=== PATIENT | male | born 1945 | race Caucasian/White ===

== ENCOUNTER 2023-08-04 10:50 | Outpatient (OUT) | payer MEDICARE, SELFPAY ==
[2023-08-04 11:24] LABS: Basophils Absolute Auto 0.1 10^3/uL (0.0-0.1); Basophils Percent Auto 0.8 % (0.2-2.0); Eosinophils Absolute Auto 0.4 10^3/uL (0.0-0.7); Eosinophils Percent Auto 5.1 % (0.9-7.0); Hemoglobin 8.7 g/dL (14.0-18.0); Immature Granulocytes Abs Auto 0.03 10^3/uL (0.00-0.03); Immature Granulocytes Pct Auto 0.3 % (0.0-0.5); Lymphocytes Absolute Auto 1.6 10^3/uL (1.2-3.8); Lymphocytes Percent Auto 17.8 % (20.5-60.0); Mean Corpuscular HGB Conc 26.4 g/dL (29.9-35.2); Mean Corpuscular Hemoglobin 18.2 pg (25.9-34.0); Mean Corpuscular Volume 68.9 fL (80.0-94.0); Mean Platelet Volume 9.5 fL (9.5-13.5); Monocytes Absolute Auto 0.9 10^3/uL (0.3-0.8); Monocytes Percent Auto 10.2 % (1.7-12.0); Neutrophils Absolute Auto 5.7 10^3/uL (1.4-6.5); Neutrophils Percent Auto 65.8 % (43.0-75.0); Platelet Count 362 10^3/uL (150-450); Red Blood Count 4.79 10^6/uL (4.70-6.10); Red Cell Distribution Width 18.7 % (11.0-15.0); White Blood Count 8.7 10^3/uL (4.0-11.0)
[2023-08-04 11:55] LABS: Estimated Average Glucose 131 mg/dL; Glycohemoglobin A1C 6.2 % (4.5-6.2)
[2023-08-04 12:09] LABS: Alanine Aminotransferase 17 U/L (16-63); Albumin Level 3.7 g/dL (3.4-5.0); Alkaline Phosphatase 66 U/L (46-116); Anion Gap 12.3; Aspartate Amino Transferase 19 U/L (15-37); BUN Creatinine Ratio 13.1; Bilirubin Total 0.4 mg/dL (0.2-1.0); Calcium 8.9 mg/dL (8.5-10.1); Carbon Dioxide 29.4 mmol/L (21.0-32.0); Chloride 105 mmol/L (98-107); Chol HDL Ratio 2.7; Cholesterol 128 mg/dL (<=200); Estimated GFR (African America >60 (>=60); Estimated GFR (Non-African Ame >60 (>=60); Free T3 2.88 pg/mL (2.18-3.98); Globulin 3.7 g/dL; Glucose 122 mg/dL (74-106); HDL Cholesterol 47 mg/dL (40-60); LDL Cholesterol Calculated 60.6 mg/dL; Potassium 3.7 mmol/L (3.5-5.1); Sodium 143 mmol/L (136-145); Thyroid Stimulating Hormone 2.108 uIU/mL (0.358-3.740); Total Protein 7.4 g/dL (6.4-8.2); Triglycerides 102 mg/dL (<=150); VLDL CHOLESTEROL 20.4 mg/dL
[2023-08-04 12:15] LABS: Prostate Specific Antigen Scrn 2.38 ng/mL (<=4.00)
== END 2023-08-04 10:51 | disposition home or self-care (01) ==
LOC: LAB 10:56
PROVIDERS: PCP Family Medicine; Visit Provider Family Medicine
DX: R60.0 Localized edema (principal); E11.9 Type 2 diabetes mellitus without complications; I10 Essential (primary) hypertension; E78.5 Hyperlipidemia, unspecified; R73.09 Other abnormal glucose; Z12.5 Encounter for screening for malignant neoplasm of prostate
CPT/HCPCS: 36415; 80053; 80061; 83036; 83880; 84436; 84443; 84481; 85025; G0103

== ENCOUNTER 2023-08-07 10:24 | Outpatient (OUT) | payer MEDICARE, SELFPAY ==
--- OUTSIDE RECORDS SUMMARY | 2023-08-07 10:28 | XMS_ITS | CCD ---
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 Name Role Phone PHYSICIAN, DEFAULT Unavailable Unavailable PHYSICIAN, DEFAULT Unavailable Unavailable Adonay Zhang Primary Care Physician [phone] HOY ., DR URIAS Admitting Unavailable HOY ., DR URIAS Attending Unavailable HOY ., DR URIAS Consulting Unavailable HOY ., DR URIAS Primary Care Unavailable HOY ., DR URIAS Primary Care Unavailable HOY ., DR URIAS Admitting Unavailable HOY ., DR URIAS Attending Unavailable HOY ., DR URIAS Consulting Unavailable HOY ., DR URIAS Primary Care Unavailable HOY ., DR URIAS Admitting Unavailable HOY ., DR URIAS Attending Unavailable HOY ., DR URIAS Consulting Unavailable HOY ., DR URIAS Admitting Unavailable HOY ., DR URIAS Primary Care Unavailable HOY ., DR URIAS Attending Unavailable HOY ., DR URIAS Consulting Unavailable GRECHNY ., JOSE SIVLA Consulting UnavailDEVIN Shook Consulting Unavailable NILL ., DR HIDALGO Admitting Unavailable HOY ., DR URIAS Primary Care Unavailable NILL ., DR HIDALGO Attending Unavailable NILL ., DR HIDALGO Consulting Unavailable AGUBOSIM, SHEA Consulting Unavailable DANIEL FRANCIS Consulting Unavailable HOY ., DR URIAS Admitting Unavailable HOY ., DR URIAS Attending Unavailable HOY ., DR URIAS Consulting Unavailable HOY ., DR URIAS Primary Care Unavailable Allergies Allergy Classification Reported Allergen(s) Allergy Type Date of Onset Reaction(s) Facility (1 source) Sulfonamides (Antibiotic); Translations: [sulfa drugs] Drug allergy Unknown (qualifier value) [facility] Work Phone: Medications Current Medications Medication Drug Class(es) Dates Sig (Normalized) Sig (Original) aspirin 81 mg oral tablet (1 source) Platelet Aggregation Inhibitor, Nonsteroidal Anti-inflammatory Drug Start: 10-21-2021 take 1 tablet by mouth once daily aspirin 81 mg Oral EC Tab 81 mg = 1 tab(s), Oral, Daily, Refills(s) 0 Start Date: 10/21/21 Status: Ordered benazepril hydrochloride 40 mg oral tablet (1 source) Angiotensin Converting Enzyme Inhibitor Start: 10-21-2021 take 1 tablet by mouth once daily benazepril 40 mg oral tablet 40 mg = 1 tab(s), Oral, Daily, Refills(s) 0 Start Date: 10/21/21 Status: Ordered Diclofenac 75mg Tab-DR (1 source) Start: 10-21-2021 take 1 tablet by mouth twice daily Diclofenac 75mg Tab-DR = 1 tab(s), Oral, BID, Refills(s) 0 Start Date: 10/21/21 Status: Ordered doxazosin 4 mg oral tablet (1 source) alpha-Adrenergic Citlalli Start: 10-21-2021 take 1 tablet by mouth once daily Cardura 4 mg Tab 4 mg = 1 tab(s), Oral, Daily, Refills(s) 0 Start Date: 10/21/21 Status: Ordered furosemide 40 mg oral tablet (1 source) Loop Diuretic Start: 10-21-2021 take 1 tablet by mouth once daily Lasix 40 mg Tab 40 mg = 1 tab(s), Oral, Daily, Refills(s) 0 Start Date: 10/21/21 Status: Ordered glimepiride 4 mg oral tablet (1 source) Sulfonylurea Start: 10-21-2021 take 1 tablet by mouth once daily glimepiride 4 mg Tab 4 mg = 1 tab(s), Oral, Daily, Refills(s) 0 Start Date: 10/21/21 Status: Ordered hyoscyamine sulfate 0.125 mg oral tablet (1 source) Start: 10-21-2021 take 1 tablet by mouth four times daily Levsin 0.125 mg oral tablet 0.125 mg = 1 tab(s), Oral, QID, Refills(s) 0 Start Date: 10/21/21 Status: Ordered linaclotide 0.145 mg oral capsule (1 source) Guanylate Cyclase-C Agonist Start: 10-21-2021 take 1 capsule by mouth once daily Linzess 145 mcg oral capsule 145 mcg = 1 cap(s), Oral, Daily, Refills(s) 0 Start Date: 10/21/21 Status: Ordered metFORMIN hydrochloride 500 mg oral tablet (1 source) Biguanide Start: 10-21-2021 take 1 tablet by mouth twice daily metformin 500 mg oral tablet 500 mg = 1 tab(s), Oral, BID, Refills(s) 0 Start Date: 10/21/21 Status: Ordered metoprolol tartrate 100 mg oral tablet (1 source) beta-Adrenergic Citlalli Start: 10-21-2021 take 1 tablet by mouth twice daily metoprolol tartrate 100 mg Tab 100 mg = 1 tab(s), Oral, BID, Refills(s) 0 Start Date: 10/21/21 Status: Ordered pantoprazole 40 mg extended release oral tablet (1 source) Proton Pump Inhibitor Start: 10-21-2021 take 1 tablet by mouth once daily Pantoprazole [address] Tab 40 mg = 1 tab(s), Oral, Daily, Refills(s) 0 Start Date: 10/21/21 Status: Ordered simvastatin 20 mg oral tablet (1 source) HMG-CoA Reductase Inhibitor Start: 10-21-2021 take 1 tablet by mouth once daily at bedtime simvastatin 20 mg Tab 20 mg = 1 tab(s), Oral, Once a day (at bedtime), Refills(s) 0 Start Date: 10/21/21 Status: Ordered sucralfate 1000 mg oral tablet (1 source) Aluminum Complex Start: 10-21-2021 sucralfate 1 g Tab 1 gm = 1 tab(s), Oral, QIDACHS, Refills(s) 0 Start Date: 10/21/21 Status: Ordered Completed/Discontinued Medications Medication Drug Class(es) Dates Sig (Normalized) Sig (Original) potassium chloride 20 meq extended release oral tablet (1 source) Start: 10-21-2021 take 1 tablet by mouth twice daily potassium chloride 20 mEq ER Tab 20 mEq = 1 tab(s), Oral, BID, Refills(s) 0 Start Date: 10/21/21 Status: Ordered Problems Active Problems Problem Classification Problem Date Documented Date Episodic/Chronic Alcohol-related disorders (1 source) History of alcohol abuse 10-21-2021 Chronic Allergic reactions (1 source) Eczema 10-21-2021 Episodic Anxiety disorders (2 sources) Anxiety; Translations: [Anxiety disorder, unspecified] Onset: 12-15-2021 10-21-2021 Chronic Asthma (2 sources) Asthma; Translations: [Unspecified asthma, uncomplicated] Onset: 11-23-2021 10-21-2021 Chronic Blindness and vision defects (1 source) Hypermetropia 10-21-2021 Episodic Deficiency and other anemia (2 sources) Anemia; Translations: [Anemia, unspecified] Onset: 10-27-2021 Episodic Diabetes mellitus without complication (2 sources) Diabetes mellitus; Translations: [Type 2 diabetes mellitus without complications] Onset: 12-15-2021 10-21-2021 Chronic Disorders of lipid metabolism (5 sources) Hypercholesterolemia; Translations: [Hyperlipidemia] Onset: 12-15-2021 10-21-2021 Chronic Esophageal disorders (3 sources) Gastroesophageal reflux disease without esophagitis; Translations: [Gastro-esophageal reflux disease without esophagitis] Onset: 10-27-2021 Chronic Essential hypertension (2 sources) Hypertensive disorder; Translations: [Essential (primary) hypertension] Onset: 10-20-2022 10-21-2021 Chronic Gastroduodenal ulcer (except hemorrhage) (1 source) Gastric ulcer, unspecified as acute or chronic, without hemorrhage or perforation; Translations: [GASTR ULCR UNS AC/CHRN W/O HEM/PERF] Onset: 11-23-2021 Chronic Hyperplasia of prostate (2 sources) Benign prostatic hyperplasia; Translations: [Benign prostatic hyperplasia without lower urinary tract symptoms] Onset: 12-15-2021 10-21-2021 Chronic Inflammatory conditions of male genital organs (2 sources) Chronic prostatitis; Translations: [Chronic prostatitis] Onset: 12-15-2021 10-21-2021 Chronic Malaise and fatigue (1 source) Other fatigue; Translations: [OTHER FATIGUE] Onset: 10-20-2022 Episodic Osteoarthritis (1 source) Unspecified osteoarthritis, unspecified site; Translations: [UNSPECIFIED OSTEOARTHRITIS UNS SITE] Onset: 12-15-2021 Chronic Other aftercare (1 source) Other superintendent container terminal (current) drug therapy; Translations: [OTH CUSTODIAL CURRENT DRUG THERAPY] Onset: 10-20-2022 Episodic Other connective tissue disease (1 source) Fibromyalgia 10-21-2021 Episodic Other male genital disorders (1 source) Impotence 10-21-2021 Chronic Other male genital disorders (1 source) Male erectile dysfunction, unspecified; Translations: [MALE ERECTILE DYSFUNCTION UNS] Onset: 12-15-2021 Chronic Other nutritional; endocrine; and metabolic disorders (1 source) Body mass index 30+ - obesity 10-27-2021 Chronic Other nutritional; endocrine; and metabolic disorders (1 source) Morbid (severe) obesity due to excess calories; Translations: [MORBID SEVERE OBES D/T EXCESS RICKIE] Onset: 12-15-2021 Chronic Other nutritional; endocrine; and metabolic disorders (1 source) Body mass index (BMI) 32.0-32.9, adult; Translations: [BODY MASS INDEX BMI 32.0-32.9 ADULT] Onset: 12-15-2021 Chronic Other screening for suspected conditions (not mental disorders or infectious disease) (1 source) Encounter for screening for malignant neoplasm of prostate; Translations: [ENC SCREEN MALIG NEOPLASM PROSTATE] Onset: 10-20-2022 Episodic Other upper respiratory disease (1 source) Allergic rhinitis 10-21-2021 Chronic Other upper respiratory infections (4 sources) Acute sinusitis, unspecified; Translations: [ACUTE SINUSITIS UNSPECIFIED] Onset: 10-14-2022 Episodic Peripheral and visceral atherosclerosis (4 sources) Peripheral vascular disease, unspecified; Translations: [PERIPHERAL VASCULAR DISEASE UNS] Onset: 09-01-2022 Chronic Residual codes; unclassified (1 source) Obstructive sleep apnea syndrome 10-21-2021 Chronic Residual codes; unclassified (1 source) Sleep apnea 10-21-2021 Chronic Residual codes; unclassified (1 source) Sleep apnea, unspecified; Translations: [SLEEP APNEA UNSPECIFIED] Onset: 12-15-2021 Chronic Residual codes; unclassified (1 source) Obstructive sleep apnea (adult) (pediatric); Translations: [OBSTRUCTIVE SLEEP APNEA] Onset: 11-23-2021 Chronic Residual codes; unclassified (1 source) Dependent edema 10-21-2021 Episodic Spondylosis; intervertebral disc disorders; other back problems (1 source) Cervicalgia; Translations: [CERVICALGIA] Onset: 10-20-2022 Episodic Unclassified (3 sources) COUGH, UNSPECIFIED; Translations: [COUGH, UNSPECIFIED] Onset: 02-22-2022 Unclassified (1 source) CONTACT W/AND (SUSP) EXPOS COVID-19; Translations: [CONTACT W/AND (SUSP) EXPOS COVID-19] Onset: 12-15-2021 Viral infection (1 source) COVID-19; Translations: [COVID-19] Onset: 02-22-2022 Past or Other Problems Problem Classification Problem Date Documented Da te Episodic/Chronic Abdominal pain (6 sources) Epigastric pain; Translations: [Epigastric pain] Onset: 10-27-2021 Episodic Acute and unspecified renal failure (1 source) Acute kidney failure, unspecified; Translations: [ACUTE KIDNEY FAILURE UNSPECIFIED] Onset: 12-15-2021 Episodic Bacterial infection; unspecified site (1 source) Personal history of Methicillin resistant Staphylococcus aureus infection; Translations: [PERS HX METHICILLIN RSIST STAPH INF] Onset: 12-15-2021 Episodic Calculus of urinary tract (2 sources) History of calculus of kidney; Translations: [Personal history of urinary calculi] Onset: 12-15-2021 10-21-2021 Episodic Deficiency and other anemia (1 source) Anemia, unspecified; Translations: [ANEMIA UNSPECIFIED] Onset: 11-23-2021 Episodic Fluid and electrolyte disorders (2 sources) Dehydration; Translations: [Hyperkalemia] Onset: 12-15-2021 Episodic Gastritis and duodenitis (1 source) Gastritis, unspecified, without bleeding; Translations: [GASTRITIS UNS WITHOUT BLEEDING] Onset: 11-23-2021 Episodic Intestinal infection (5 sources) Viral intestinal infection, unspecified; Translations: [Other viral enteritis] Onset: 12-14-2021 Episodic Other aftercare (1 source) buttermaker continuous churn (current) use of aspirin; Translations: [CUSTODIAL CURRENT USE OF ASPIRIN] Onset: 12-15-2021 Episodic Other aftercare (1 source) buttermaker continuous churn (current) use of oral hypoglycemic drugs; Translations: [GANG KNIFE FISH CHOPPER USE ORAL HYPOGLYCEMIC DX] Onset: 12-15-2021 Episodic Other connective tissue disease (1 source) Fibromyalgia; Translations: [FIBROMYALGIA] Onset: 12-15-2021 Episodic Other gastrointestinal disorders (3 sources) Diarrhea, unspecified; Translations: [DIARRHEA UNSPECIFIED] Onset: 12-10-2021 Episodic Other lower respiratory disease (1 source) Personal history of pneumonia (recurrent); Translations: [PERSONAL HX OF PNEUMONIA RECURRENT] Onset: 12-15-2021 Episodic Residual codes; unclassified (1 source) Acquired absence of other specified parts of digestive tract; Translations: [ACQ ABSENCE OTH PART DIGESTV TRACT] Onset: 12-15-2021 Episodic Screening and history of mental health and substance abuse codes (1 source) Personal history of nicotine dependence; Translations: [PERSONAL HISTORY OF NICOTINE DEPEND] Onset: 12-15-2021 Episodic Unclassified (1 source) COUGH, UNSPECIFIED; Translations: [COUGH, UNSPECIFIED] Onset: 02-21-2022 Results Test Name Value Interpretation Reference Range Facility CBC AUTO DIFFon 10-14-2022 BASO # 0.1 103/ul Normal 0.0-0.1 [facility] Comment on above: Performed By: #### T SH, LIVER, LIPID, BMP, T7 #### [facility] [address] [place] [address] Dr. Roberto Cabral Basophils/100 WBC (Bld) 0.7 % Normal 0.2-2.0 [facility] Comment on above: Performed By: #### T SH, LIVER, LIPID, BMP, T7 #### [facility] [address] [place] [address] Dr. Roberto Cabral EO # 0.5 103/ul Normal 0.0-0.7 [facility] Comment on above: Performed By: #### T SH, LIVER, LIPID, BMP, T7 #### [facility] [address] [place] [address] Dr. Roberto Cabral Eosinophils/100 WBC (Bld) 5.3 % Normal 0.9-7.0 [facility] Comment on above: Performed By: #### T SH, LIVER, LIPID, BMP, T7 #### [facility] [address] [place] [address] Dr. Roberto Cabral Erythrocyte distribution width (RBC) [Ratio] 15.8 % Critically high 11.0-15.0 [facility] Comment on above: Performed By: #### T SH, LIVER, LIPID, BMP, T7 #### [facility] [address] [place] [address] Dr. Roberto Cabral Hematocrit (Bld) [Volume fraction] 34.4 % Critically low 42.0-54.0 [facility] Comment on above: Performed By: #### T SH, LIVER, LIPID, BMP, T7 #### [facility] [address] [place] [address] Dr. Roberto Cabral Hemoglobin (Bld) [Mass/Vol] 10.2 g/dL Critically low 14.0-18.0 [facility] Comment on above: Performed By: #### T SH, LIVER, LIPID, BMP, T7 #### [facility] [address] [place] [address] Dr. Roberto Cabral IG # 0.03 10e3/ul Normal 0.00-0.03 [facility] Comment on above: Performed By: #### T SH, LIVER, LIPID, BMP, T7 #### [facility] [address] [place] [address] Dr. Roberto Cabral IG % 0.3 % Normal 0.0-0.5 [facility] Comment on above: Performed By: #### T SH, LIVER, LIPID, BMP, T7 #### [facility] [address] [place] [address] Dr. Roberto Cabral LYMPH # 1.9 103/ul Normal 1.2-3.8 [facility] Comment on above: Performed By: #### T SH, LIVER, LIPID, BMP, T7 #### [facility] [address] [place] [address] Dr. Roberto Cabral Lymphocytes/100 WBC (Bld) 21.0 % Normal 20.5-60.0 [facility] Comment on above: Performed By: #### T SH, LIVER, LIPID, BMP, T7 #### [facility] [address] [place] [address] Dr. Roberto Cabral MANUAL DIFF REQ NO Normal [facility] Comment on above: Performed By: #### T SH, LIVER, LIPID, BMP, T7 #### [facility] [address] [place] [address] Dr. Roberto Cabral MCH (RBC) [Entitic mass] 22.7 pg Critically low 25.9-34.0 [facility] Comment on above: Performed By: #### T SH, LIVER, LIPID, BMP, T7 #### [facility] [address] [place] [address] Dr. Roberto Cabral MCHC (RBC) [Mass/Vol] 29.7 g/dL Critically low 29.9-35.2 [facility] Comment on above: Performed By: #### T SH, LIVER, LIPID, BMP, T7 #### [facility] [address] [place] [address] Dr. Roberto Cabral MCV (RBC) [Entitic vol] 76.6 fL Critically low 80.0-94.0 [facility] Comment on above: Performed By: #### T SH, LIVER, LIPID, BMP, T7 #### [facility] [address] [place] [address] Dr. Roberto Cabral MONO # 0.9 103/ul Critically high 0.3-0.8 [facility] Comment on above: Performed By: #### T SH, LIVER, LIPID, BMP, T7 #### [facility] [address] [place] [address] Dr. Roberto Cabral Monocytes/100 WBC (Bld) 10.0 % Normal 1.7-12.0 [facility] Comment on above: Performed By: #### T SH, LIVER, LIPID, BMP, T7 #### [facility] [address] [place] [address] Dr. Roberto Cabral NEUT # 5.7 103/ul Normal 1.4-6.5 [facility] Comment on above: Performed By: #### T SH, LIVER, LIPID, BMP, T7 #### [facility] [address] [place] [address] Dr. Roberto Cabral Neutrophils/100 WBC (Bld) 62.7 % Normal 43.0-75.0 [facility] Comment on above: Performed By: #### T SH, LIVER, LIPID, BMP, T7 #### [facility] [address] [place] [address] Dr. Roberto Cabral Platelet mean volume (Bld) [Entitic vol] 9.8 fL Normal 9.5-13.5 [facility] Comment on above: Performed By: #### T SH, LIVER, LIPID, BMP, T7 #### [facility] [address] [address] [address] Roberto Cabral PLT 290 103/ul Normal 150-450 [facility] Comment on above: Performed By: #### T SH, LIVER, LIPID, BMP, T7 #### [facility] [address] [address] [address] Roberto Cabral RBC 4.49 106/ul Critically low 4.70-6.10 [facility] Comment on above: Performed By: #### T SH, LIVER, LIPID, BMP, T7 #### [facility] [address] [place] [address] Dr. Roberto Cabral WBC 9.1 103/ul Normal 4.0-11.0 [facility] Comment on above: Performed By: #### T SH, LIVER, LIPID, BMP, T7 #### [facility] [address] [place] [address] Dr. Roberto Cabral FREE THYROXINE INDEX T7on FTI 2.73 Normal 1.30-4.50 [facility] Comment on above: Performed By: #### T SH, LIVER, LIPID, BMP, T7 #### [facility] [address] [place] [address] Dr. Roberto Cabral T3U 35.0 % Normal 33.0-40.0 [facility] Comment on above: Performed By: #### T SH, LIVER, LIPID, BMP, T7 #### [facility] [address] [place] [address] Dr. Roberto Cabral T4 [Mass/Vol] 7.80 ug/dL Normal 4.50-12.10 [facility] Comment on above: Performed By: #### T SH, LIVER, LIPID, BMP, T7 #### [facility] [address] [place] [address] Dr. Roberto Cabral GLYCOHEMOGLOBIN A1Con 2022 ADA RECOMMENDATION SEE BELOW Normal [facility] Comment on above: Result Comment: ADA RECOMMENDED LIMIT 4.0 - 6.0 ADA THERAPEUTIC TARGET < 7.0 ACTION SUGGESTED > 7.0 Performed By: #### A 1C #### [facility] [address] [place] [address] Dr. Roberto Cabral Glucose [Mass/Vol] 126 mg/dL Normal [facility] Comment on above: Performed By: #### A 1C #### [facility] [address] [place] [address] Dr. Roberto Cabral HbA1c (Bld) [Mass fraction] 6.0 % Normal 4.5-6.2 [facility] Comment on above: Performed By: #### A 1C #### [facility] [address] [place] [address] Dr. Roberto Cabral LIPID PROFILEon 10-14-2022 CHOL-HDL RATIO NORM SEE BELOW Normal [facility] Comment on above: Result Comment: 3.3 - 4.4 LOW RISK 4.4 - 7.1 AVERAGE RISK 7.1 - 11.0 MODERATE RISK >11.0 HIGH RISK Performed By: #### T SH, LIVER, LIPID, BMP, T7 #### [facility] [address] [place] [address] Dr. Roberto Cabral Cholesterol [Mass/Vol] 129 mg/dL Normal <=200 [facility] Comment on above: Performed By: #### T SH, LIVER, LIPID, BMP, T7 #### [facility] [address] [address] [address] Roberto Cabral Cholesterol in HDL [Mass/Vol] 45 mg/dL Normal 40-60 [facility] Comment on above: Performed By: #### T SH, LIVER, LIPID, BMP, T7 #### [facility] [address] [address] [address] Roberto Cabral Cholesterol in LDL [Mass/Vol] 62.4 mg/dL Normal [facility] Comment on above: Performed By: #### T SH, LIVER, LIPID, BMP, T7 #### [facility] [address] [address] [address] Roberto Cabral Cholesterol.total/ Cholesterol in HDL [Mass ratio] 2.9 {ratio} Normal [facility] Comment on above: Performed By: #### T SH, LIVER, LIPID, BMP, T7 #### [facility] [address] [place] [address] Dr. Roberto Cabral HDL NORMAL > or = 60 mg/dl - LO W CARDIOVASCULAR RISK <40 mg/dl - HIGH CARDIOVASCULAR RISK Normal [facility] Comment on above: Performed By: #### T SH, LIVER, LIPID, BMP, T7 #### [facility] [address] [address] [address] Roberto Cabral LDL CALC NORMAL SEE BELOW Normal [facility] Comment on above: Result Comment: <100 mg/dl OPTIMAL 100 - 129 mg/dl NEAR OR ABOVE OPTIMAL 130 - 159 mg/dl BORDERLINE HIGH 160 - 189 mg/dl HIGH >190 mg/dl VERY HIGH Performed By: #### T SH, LIVER, LIPID, BMP, T7 #### [facility] [address] [address] [address] Roberto Cabral Triglyceride [Mass/Vol] 108 mg/dL Normal <=150 [facility] Comment on above: Performed By: #### T SH, LIVER, LIPID, BMP, T7 #### [facility] [address] [place] [address] Dr. Roberto Cabral VLDL CALC 21.6 mg/dL Normal [facility] Comment on above: Performed By: #### T SH, LIVER, LIPID, BMP, T7 #### [facility] [address] [address] [address] Roberto Cabral LIVER PROFILEon 10-14-2022 Albumin [Mass/Vol] 3.6 g/dL Normal 3.4-5.0 [facility] Comment on above: Performed By: #### T SH, LIVER, LIPID, BMP, T7 #### [facility] [address] [address] [address] Roberto Cabral Albumin/Globulin [Mass ratio] 1.0 {ratio} Normal [facility] Comment on above: Performed By: #### T SH, LIVER, LIPID, BMP, T7 #### [facility] [address] [place] [address] Dr. Roberto Cabral ALP [Catalytic activity/Vol] 80 U/L Normal 46-116 [facility] Comment on above: Performed By: #### T SH, LIVER, LIPID, BMP, T7 #### [facility] [address] [place] [address] Dr. Roberto Cabral ALT [Catalytic activity/Vol] 21 U/L Normal 16-63 [facility] Comment on above: Performed By: #### T SH, LIVER, LIPID, BMP, T7 #### [facility] [address] [place] [address] Dr. Roberto Cabral AST [Catalytic activity/Vol] 14 U/L Critically low 15-37 [facility] Comment on above: Performed By: #### T SH, LIVER, LIPID, BMP, T7 #### [facility] [address] [place] [address] Dr. Roberto Cabral BILI, CONJUGATED 0.1 mg/dL Normal 0.0-0.2 [facility] Comment on above: Performed By: #### T SH, LIVER, LIPID, BMP, T7 #### [facility] [address] [place] [address] Dr. Roberto Cabral Bilirubin [Mass/Vol] 0.2 mg/dL Normal 0.2-1.0 [facility] Comment on above: Performed By: #### T SH, LIVER, LIPID, BMP, T7 #### [facility] [address] [place] [address] Dr. Roberto Cabral Globulin (S) [Mass/Vol] 3.6 g/dL Normal [facility] Comment on above: Performed By: #### T SH, LIVER, LIPID, BMP, T7 #### [facility] [address] [place] [address] Dr. Roberto Cabral Protein [Mass/Vol] 7.2 g/dL Normal 6.4-8.2 [facility] Comment on above: Performed By: #### T SH, LIVER, LIPID, BMP, T7 #### [facility] [address] [place] [address] Dr. Roberto Cabral PROF CHEM 8 (BAS METB)on Anion gap [Moles/Vol] 13.9 mmol/L Normal [facility] Comment on above: Performed By: #### T SH, LIVER, LIPID, BMP, T7 #### [facility] [address] [place] [address] Dr. Roberto Cabral Calcium [Mass/Vol] 9.2 mg/dL Normal 8.5-10.1 [facility] Comment on above: Performed By: #### T SH, LIVER, LIPID, BMP, T7 #### [facility] [address] [address] [address] Roberto Cabral Chloride [Moles/Vol] 110 mmol/L Critically high 98-107 [facility] Comment on above: Performed By: #### T SH, LIVER, LIPID, BMP, T7 #### [facility] [address] [address] [address] Roberto Cabral CO2 [Moles/Vol] 26.2 mmol/L Normal 21.0-32.0 [facility] Comment on above: Performed By: #### T SH, LIVER, LIPID, BMP, T7 #### [facility] [address] [place] [address] Dr. Roberto Cabral Creatinine [Mass/Vol] 1.02 mg/dL Normal 0.70-1.30 [facility] Comment on above: Performed By: #### T SH, LIVER, LIPID, BMP, T7 #### [facility] [address] [place] [address] Dr. Roberto Cabral EGFR-AF ALGERIAN >60 Normal >=60 [facility] Comment on above: Performed By: #### T SH, LIVER, LIPID, BMP, T7 #### [facility] [address] [place] [address] Dr. Roberto Cabral EGFR-NON AF ALGERIAN >60 Normal >=60 [facility] Comment on above: Performed By: #### T SH, LIVER, LIPID, BMP, T7 #### [facility] [address] [place] [address] Dr. Roberto Cabral Glucose [Mass/Vol] 120 mg/dL Critically high 74-106 [facility] Comment on above: Performed By: #### T SH, LIVER, LIPID, BMP, T7 #### [facility] [address] [place] [address] Dr. Roberto Cabral Potassium [Moles/Vol] 4.1 mmol/L Normal 3.5-5.1 [facility] Comment on above: Performed By: #### T SH, LIVER, LIPID, BMP, T7 #### [facility] [address] [address] [address] Roberto Cabral Sodium [Moles/Vol] 146 mmol/L Critically high 136-145 [facility] Comment on above: Performed By: #### T SH, LIVER, LIPID, BMP, T7 #### [facility] [address] [address] [address] Roberto Cabral Urea nitrogen [Mass/Vol] 26.0 mg/dL Critically high 7.0-18.0 [facility] Comment on above: Performed By: #### T SH, LIVER, LIPID, BMP, T7 #### [facility] [address] [place] [address] Dr. Roberto Cabral Urea nitrogen/Creatinin e [Mass ratio] 25.5 mg/mg Normal [facility] Comment on above: Performed By: #### T SH, LIVER, LIPID, BMP, T7 #### [facility] [address] [address] [address] Roberto Cabral TSHon 10-14-2022 TSH 1.674 uIU/mL Normal 0.358-3.740 [facility] Comment on above: Performed By: #### T SH, LIVER, LIPID, BMP, T7 #### [facility] [address] [place] [address] Dr. Roberto Cabral [facility]01 SARS-CoV-2 (COVID-19) RNA JOSÉ+probe Ql (Unsp spec) Detected Critically abnormal NOT DETECTED [facility] Comment on above: Result Comment: This test is not yet approved or cleared by the [place] FDA. When there are no FDA-approved or cleared tests available, and other criteria are met, FDA can make tests available under an emergency access mechanism called an Emergency Use Authorization (EUA). The EUA for this test is supported by the Lead Generator of Health and Human Service's (HHS's) declaration that circumstances exist to justify the emergency use of in vitro diagnostics for the detection and/or diagnosis of the virus that causes COVID-19. This EUA will remain in effect (meaning this test can be used) for the duration of the COVID-19 declaration justifying emergency of IVDs, unless it is terminated or revoked by FDA (after which the test may no longer be used). Performed By: #### T SH, LIVER, LIPID, BMP, T7 #### [facility] [address] [address] [address] Roberto Cabral Pre-Certification Formon Pre-Certification Form [id number] Normal [facility] PROF 14(COMP METB)on 022 Albumin [Mass/Vol] 3.3 g/dL Critically low 3.4-5.0 [facility] Comment on above: Performed By: #### T SH, LIVER, LIPID, BMP, T7 #### [facility] [address] [place] [address] Dr. Roberto Cabral Albumin/Globulin [Mass ratio] 1.0 {ratio} Normal [facility] Comment on above: Performed By: #### T SH, LIVER, LIPID, BMP, T7 #### [facility] [address] [address] [address] Roberto Cabral ALP [Catalytic activity/Vol] 95 U/L Normal 46-116 [facility] Comment on above: Performed By: #### T SH, LIVER, LIPID, BMP, T7 #### [facility] [address] [address] [address] Roberto Cabral ALT [Catalytic activity/Vol] 22 U/L Normal 16-63 [facility] Comment on above: Performed By: #### T SH, LIVER, LIPID, BMP, T7 #### [facility] [address] [address] [address] Roberto Cabral Anion gap [Moles/Vol] 14.0 mmol/L Normal [facility] Comment on above: Performed By: #### T SH, LIVER, LIPID, BMP, T7 #### [facility] [address] [address] [address] Roberto Cabral AST [Catalytic activity/Vol] 12 U/L Critically low 15-37 [facility] Comment on above: Performed By: #### T SH, LIVER, LIPID, BMP, T7 #### [facility] [address] [address] [address] Roberto Cabral Bilirubin [Mass/Vol] 0.2 mg/dL Normal 0.2-1.0 [facility] Comment on above: Performed By: #### T SH, LIVER, LIPID, BMP, T7 #### [facility] [address] [place] [address] Dr. Roberto Cabral Calcium [Mass/Vol] 8.6 mg/dL Normal 8.5-10.1 [facility] Comment on above: Performed By: #### T SH, LIVER, LIPID, BMP, T7 #### [facility] [address] [place] [address] Dr. Roberto Cabral Chloride [Moles/Vol] 110 mmol/L Critically high 98-107 [facility] Comment on above: Performed By: #### T SH, LIVER, LIPID, BMP, T7 #### [facility] [address] [place] [address] Dr. Roberto Cabral CO2 [Moles/Vol] 22.6 mmol/L Normal 21.0-32.0 [facility] Comment on above: Performed By: #### T SH, LIVER, LIPID, BMP, T7 #### [facility] [address] [place] [address] Dr. Roberto Cabral Creatinine [Mass/Vol] 1.05 mg/dL Normal 0.70-1.30 [facility] Comment on above: Performed By: #### T SH, LIVER, LIPID, BMP, T7 #### [facility] [address] [place] [address] Dr. Roberto Cabral EGFR-AF ALGERIAN >60 Normal >=60 [facility] Comment on above: Performed By: #### T SH, LIVER, LIPID, BMP, T7 #### [facility] [address] [place] [address] Dr. Roberto Cabral EGFR-NON AF ALGERIAN >60 Normal >=60 [facility] Comment on above: Performed By: #### T SH, LIVER, LIPID, BMP, T7 #### [facility] [address] [address] [address] Roberto Cabral Globulin (S) [Mass/Vol] 3.2 g/dL Normal [facility] Comment on above: Performed By: #### T SH, LIVER, LIPID, BMP, T7 #### [facility] [address] [place] [address] Dr. Roberto Cabral Glucose [Mass/Vol] 172 mg/dL Critically high 74-106 [facility] Comment on above: Performed By: #### T SH, LIVER, LIPID, BMP, T7 #### [facility] [address] [place] [address] Dr. Roberto Cabral Potassium [Moles/Vol] 4.6 mmol/L Normal 3.5-5.1 [facility] Comment on above: Performed By: #### T SH, LIVER, LIPID, BMP, T7 #### [facility] [address] [place] [address] Dr. Roberto Cabral Protein [Mass/Vol] 6.5 g/dL Normal 6.4-8.2 [facility] Comment on above: Performed By: #### T SH, LIVER, LIPID, BMP, T7 #### [facility] [address] [place] [address] Dr. Roberto Cabral Sodium [Moles/Vol] 142 mmol/L Normal 136-145 [facility] Comment on above: Performed By: #### T SH, LIVER, LIPID, BMP, T7 #### [facility] [address] [place] [address] Dr. Roberto Cabral Urea nitrogen [Mass/Vol] 14.0 mg/dL Normal 7.0-18.0 [facility] Comment on above: Performed By: #### T SH, LIVER, LIPID, BMP, T7 #### [facility] [address] [place] [address] Dr. Roberto Cabral Urea nitrogen/Creatinin e [Mass ratio] 13.3 mg/mg Normal [facility] Comment on above: Performed By: #### T SH, LIVER, LIPID, BMP, T7 #### [facility] [address] [place] [address] Dr. Roberto Cabral CBC AUTO DIFFon 12-11-2021 BASO # 0.1 103/ul Normal 0.0-0.1 [facility] Comment on above: Performed By: #### T SH, LIVER, LIPID, BMP, T7 #### [facility] [address] [place] [address] Dr. Roberto Cabral Basophils/100 WBC (Bld) 0.3 % Normal 0.2-2.0 [facility] Comment on above: Performed By: #### T SH, LIVER, LIPID, BMP, T7 #### [facility] [address] [place] [address] Dr. Roberto Cabral EO # 0.7 103/ul Normal 0.0-0.7 [facility] Comment on above: Performed By: #### T SH, LIVER, LIPID, BMP, T7 #### [facility] [address] [place] [address] Dr. Roberto Cabral Eosinophils/100 WBC (Bld) 4.5 % Normal 0.9-7.0 [facility] Comment on above: Performed By: #### T SH, LIVER, LIPID, BMP, T7 #### [facility] [address] [place] [address] Dr. Roberto Cabral Erythrocyte distribution width (RBC) [Ratio] 15.7 % Critically high 11.0-15.0 [facility] Comment on above: Performed By: #### T SH, LIVER, LIPID, BMP, T7 #### [facility] [address] [place] [address] Dr. Roberto Cabral Hematocrit (Bld) [Volume fraction] 33.3 % Critically low 42.0-54.0 [facility] Comment on above: Performed By: #### T SH, LIVER, LIPID, BMP, T7 #### [facility] [address] [place] [address] Dr. Roberto Cabral Hemoglobin (Bld) [Mass/Vol] 10.3 g/dL Critically low 14.0-18.0 [facility] Comment on above: Performed By: #### T SH, LIVER, LIPID, BMP, T7 #### [facility] [address] [address] [address] Roberto Cabral IG # 0.08 10e3/ul Critically high 0.00-0.03 [facility] Comment on above: Performed By: #### T SH, LIVER, LIPID, BMP, T7 #### [facility] [address] [address] [address] Roberto Cabral IG % 0.5 % Normal 0.0-0.5 [facility] Comment on above: Performed By: #### T SH, LIVER, LIPID, BMP, T7 #### [facility] [address] [place] [address] Dr. Roberto Cabral LYMPH # 1.3 103/ul Normal 1.2-3.8 [facility] Comment on above: Performed By: #### T SH, LIVER, LIPID, BMP, T7 #### [facility] [address] [place] [address] Dr. Roberto Cabral Lymphocytes/100 WBC (Bld) 8.4 % Critically low 20.5-60.0 [facility] Comment on above: Performed By: #### T SH, LIVER, LIPID, BMP, T7 #### [facility] [address] [address] [address] Roberto Cabral MANUAL DIFF REQ NO Normal [facility] Comment on above: Performed By: #### T SH, LIVER, LIPID, BMP, T7 #### [facility] [address] [place] [address] Dr. Roberto Cabral MCH (RBC) [Entitic mass] 27.9 pg Normal 25.9-34.0 [facility] Comment on above: Performed By: #### T SH, LIVER, LIPID, BMP, T7 #### [facility] [address] [address] [address] Roberto Cabral MCHC (RBC) [Mass/Vol] 30.9 g/dL Normal 29.9-35.2 [facility] Comment on above: Performed By: #### T SH, LIVER, LIPID, BMP, T7 #### [facility] [address] [place] [address] Dr. Roberto Cabral MCV (RBC) [Entitic vol] 90.2 fL Normal 80.0-94.0 [facility] Comment on above: Performed By: #### T SH, LIVER, LIPID, BMP, T7 #### [facility] [address] [address] [address] Roberto Cabral MONO # 1.4 103/ul Critically high 0.3-0.8 [facility] Comment on above: Performed By: #### T SH, LIVER, LIPID, BMP, T7 #### [facility] [address] [address] [address] Roberto Cabral Monocytes/100 WBC (Bld) 8.9 % Normal 1.7-12.0 [facility] Comment on above: Performed By: #### T SH, LIVER, LIPID, BMP, T7 #### [facility] [address] [place] [address] Dr. Roberto Cabral NEUT # 12.0 103/ul Critically high 1.4-6.5 [facility] Comment on above: Performed By: #### T SH, LIVER, LIPID, BMP, T7 #### [facility] [address] [place] [address] Dr. Roberto Cabral Neutrophils/100 WBC (Bld) 77.4 % Critically high 43.0-75.0 [facility] Comment on above: Performed By: #### T SH, LIVER, LIPID, BMP, T7 #### [facility] [address] [place] [address] Dr. Roberto Cabral Platelet mean volume (Bld) [Entitic vol] 10.3 fL Normal 9.5-13.5 [facility] Comment on above: Performed By: #### T SH, LIVER, LIPID, BMP, T7 #### [facility] [address] [place] [address] Dr. Roberto Cabral PLT 286 103/ul Normal 150-450 [facility] Comment on above: Performed By: #### T SH, LIVER, LIPID, BMP, T7 #### [facility] [address] [place] [address] Dr. Roberto Cabral RBC 3.69 106/ul Critically low 4.70-6.10 [facility] Comment on above: Performed By: #### T SH, LIVER, LIPID, BMP, T7 #### [facility] [address] [address] [address] Roberto Cabral WBC 15.4 103/ul Critically high 4.0-11.0 [facility] Comment on above: Performed By: #### T SH, LIVER, LIPID, BMP, T7 #### [facility] [address] [address] [address] Roberto Cabral POINT OF CARE GLUCOSEon 12-01 Glucose [Mass/Vol] 122 mg/dL Critically high 74-106 [facility] Comment on above: Performed By: #### T SH, LIVER, LIPID, BMP, T7 #### [facility] [address] [address] [address] Roberto Cabral PROF 14(COMP METB)on 022 Albumin [Mass/Vol] 2.8 g/dL Critically low 3.4-5.0 [facility] Comment on above: Performed By: #### T SH, LIVER, LIPID, BMP, T7 #### [facility] [address] [place] [address] Dr. Roberto Cabral Albumin/Globulin [Mass ratio] 1.0 {ratio} Normal [facility] Comment on above: Performed By: #### T SH, LIVER, LIPID, BMP, T7 #### [facility] [address] [address] [address] Roberto Cabral ALP [Catalytic activity/Vol] 66 U/L Normal 46-116 [facility] Comment on above: Performed By: #### T SH, LIVER, LIPID, BMP, T7 #### [facility] [address] [address] [address] Roberto Cabral ALT [Catalytic activity/Vol] 15 U/L Critically low 16-63 [facility] Comment on above: Performed By: #### T SH, LIVER, LIPID, BMP, T7 #### [facility] [address] [address] [address] Roberto Cabral Anion gap [Moles/Vol] 15.2 mmol/L Normal [facility] Comment on above: Performed By: #### T SH, LIVER, LIPID, BMP, T7 #### [facility] [address] [address] [address] Roberto Cabral AST [Catalytic activity/Vol] 15 U/L Normal 15-37 [facility] Comment on above: Performed By: #### T SH, LIVER, LIPID, BMP, T7 #### [facility] [address] [address] [address] Roberto Cabral Bilirubin [Mass/Vol] 0.2 mg/dL Normal 0.2-1.0 [facility] Comment on above: Performed By: #### T SH, LIVER, LIPID, BMP, T7 #### [facility] [address] [place] [address] Dr. Roberto Cabral Calcium [Mass/Vol] 8.4 mg/dL Critically low 8.5-10.1 [facility] Comment on above: Performed By: #### T SH, LIVER, LIPID, BMP, T7 #### [facility] [address] [address] [address] Roberto Cabral Chloride [Moles/Vol] 114 mmol/L Critically high 98-107 [facility] Comment on above: Performed By: #### T SH, LIVER, LIPID, BMP, T7 #### [facility] [address] [place] [address] Dr. Roberto Cabral CO2 [Moles/Vol] 17.2 mmol/L Critically low 21.0-32.0 [facility] Comment on above: Performed By: #### T SH, LIVER, LIPID, BMP, T7 #### [facility] [address] [place] [address] Dr. Roberto Cabral Creatinine [Mass/Vol] 1.84 mg/dL Critically high 0.70-1.30 [facility] Comment on above: Performed By: #### T SH, LIVER, LIPID, BMP, T7 #### [facility] [address] [place] [address] Dr. Roberto Cabral EGFR-AF ALGERIAN 44 mL/min/1.73m2 Critically low >=60 [facility] Comment on above: Performed By: #### T SH, LIVER, LIPID, BMP, T7 #### [facility] [address] [address] [address] Roberto Cabral EGFR-NON AF ALGERIAN 36 mL/min/1.73m2 Critically low >=60 [facility] Comment on above: Performed By: #### T SH, LIVER, LIPID, BMP, T7 #### [facility] [address] [place] [address] Dr. Roberto Cabral Globulin (S) [Mass/Vol] 2.9 g/dL Normal [facility] Comment on above: Performed By: #### T SH, LIVER, LIPID, BMP, T7 #### [facility] [address] [place] [address] Dr. Roberto Cabral Glucose [Mass/Vol] 120 mg/dL Critically high 74-106 [facility] Comment on above: Performed By: #### T SH, LIVER, LIPID, BMP, T7 #### [facility] [address] [place] [address] Dr. Roberto Cabral Potassium [Moles/Vol] 5.4 mmol/L Critically high 3.5-5.1 [facility] Comment on above: Performed By: #### T SH, LIVER, LIPID, BMP, T7 #### [facility] [address] [place] [address] Dr. Roberto Cabral Protein [Mass/Vol] 5.7 g/dL Critically low 6.4-8.2 [facility] Comment on above: Performed By: #### T SH, LIVER, LIPID, BMP, T7 #### [facility] [address] [place] [address] Dr. Roberto Cabral Sodium [Moles/Vol] 141 mmol/L Normal 136-145 [facility] Comment on above: Performed By: #### T SH, LIVER, LIPID, BMP, T7 #### [facility] [address] [place] [address] Dr. Roberto Cabral Urea nitrogen [Mass/Vol] 56.0 mg/dL Critically high 7.0-18.0 [facility] Comment on above: Performed By: #### T SH, LIVER, LIPID, BMP, T7 #### [facility] [address] [place] [address] Dr. Roberto Cabral Urea nitrogen/Creatinin e [Mass ratio] 30.4 mg/mg Normal [facility] Comment on above: Performed By: #### T SH, LIVER, LIPID, BMP, T7 #### [facility] [address] [place] [address] Dr. Roberto Cabral PROF CHEM 8 (BAS METB)on Anion gap [Moles/Vol] 13.3 mmol/L Normal [facility] Comment on above: Performed By: #### T SH, LIVER, LIPID, BMP, T7 #### [facility] [address] [place] [address] Dr. Roberto Cabral Calcium [Mass/Vol] 8.3 mg/dL Critically low 8.5-10.1 [facility] Comment on above: Performed By: #### T SH, LIVER, LIPID, BMP, T7 #### [facility] [address] [place] [address] Dr. Roberto Cabral Chloride [Moles/Vol] 113 mmol/L Critically high 98-107 [facility] Comment on above: Performed By: #### T SH, LIVER, LIPID, BMP, T7 #### [facility] [address] [place] [address] Dr. Roberto Cabral CO2 [Moles/Vol] 19.4 mmol/L Critically low 21.0-32.0 [facility] Comment on above: Performed By: #### T SH, LIVER, LIPID, BMP, T7 #### [facility] [address] [place] [address] Dr. Roberto Cabral Creatinine [Mass/Vol] 1.49 mg/dL Critically high 0.70-1.30 [facility] Comment on above: Performed By: #### T SH, LIVER, LIPID, BMP, T7 #### [facility] [address] [place] [address] Dr. Roberto Cabral EGFR-AF ALGERIAN 56 mL/min/1.73m2 Critically low >=60 [facility] Comment on above: Performed By: #### T SH, LIVER, LIPID, BMP, T7 #### [facility] [address] [address] [address] Roberto Cabral EGFR-NON AF ALGERIAN 46 mL/min/1.73m2 Critically low >=60 [facility] Comment on above: Performed By: #### T SH, LIVER, LIPID, BMP, T7 #### [facility] [address] [place] [address] Dr. Roberto Cabral Glucose [Mass/Vol] 142 mg/dL Critically high 74-106 [facility] Comment on above: Performed By: #### T SH, LIVER, LIPID, BMP, T7 #### [facility] [address] [place] [address] Dr. Roberto Cabral Potassium [Moles/Vol] 5.7 mmol/L Critically high 3.5-5.1 [facility] Comment on above: Performed By: #### T SH, LIVER, LIPID, BMP, T7 #### [facility] [address] [place] [address] Dr. Roberto Cabral Sodium [Moles/Vol] 140 mmol/L Normal 136-145 [facility] Comment on above: Performed By: #### T SH, LIVER, LIPID, BMP, T7 #### [facility] [address] [place] [address] Dr. Roberto Cabral Urea nitrogen [Mass/Vol] 46.0 mg/dL Critically high 7.0-18.0 [facility] Comment on above: Performed By: #### T SH, LIVER, LIPID, BMP, T7 #### [facility] [address] [place] [address] Dr. Roberto Cabral Urea nitrogen/Creatinin e [Mass ratio] 30.9 mg/mg Normal [facility] Comment on above: Performed By: #### T SH, LIVER, LIPID, BMP, T7 #### [facility] [address] [place] [address] Dr. Roberto Cabral BNPon 12-10-2021 Natriuretic peptide B (Bld) [Mass/Vol] 167.0 pg/mL Normal <=1,800.0 [facility] Comment on above: Performed By: #### T SH, LIVER, LIPID, BMP, T7 #### [facility] [address] [place] [address] Dr. Roberto Cabral CBC AUTO DIFFon 12-10-2021 BASO # 0.1 103/ul Normal 0.0-0.1 [facility] Comment on above: Performed By: #### T SH, LIVER, LIPID, BMP, T7 #### [facility] [address] [place] [address] Dr. Roberto Cabral Basophils/100 WBC (Bld) 0.3 % Normal 0.2-2.0 [facility] Comment on above: Performed By: #### T SH, LIVER, LIPID, BMP, T7 #### [facility] [address] [place] [address] Dr. Roberto Cabral EO # 0.4 103/ul Normal 0.0-0.7 [facility] Comment on above: Performed By: #### T SH, LIVER, LIPID, BMP, T7 #### [facility] [address] [place] [address] Dr. Roberto Cabral Eosinophils/100 WBC (Bld) 2.6 % Normal 0.9-7.0 [facility] Comment on above: Performed By: #### T SH, LIVER, LIPID, BMP, T7 #### [facility] [address] [place] [address] Dr. Roberto Cabral Erythrocyte distribution width (RBC) [Ratio] 15.7 % Critically high 11.0-15.0 [facility] Comment on above: Performed By: #### T SH, LIVER, LIPID, BMP, T7 #### [facility] [address] [place] [address] Dr. Roberto Cabral Hematocrit (Bld) [Volume fraction] 36.1 % Critically low 42.0-54.0 [facility] Comment on above: Performed By: #### T SH, LIVER, LIPID, BMP, T7 #### [facility] [address] [place] [address] Dr. Roberto Cabral Hemoglobin (Bld) [Mass/Vol] 11.5 g/dL Critically low 14.0-18.0 [facility] Comment on above: Performed By: #### T SH, LIVER, LIPID, BMP, T7 #### [facility] [address] [place] [address] Dr. Roberto Cabral IG # 0.07 10e3/ul Critically high 0.00-0.03 [facility] Comment on above: Performed By: #### T SH, LIVER, LIPID, BMP, T7 #### [facility] [address] [place] [address] Dr. Roberto Cabral IG % 0.4 % Normal 0.0-0.5 [facility] Comment on above: Performed By: #### T SH, LIVER, LIPID, BMP, T7 #### [facility] [address] [place] [address] Dr. Roberto Cabral LYMPH # 1.4 103/ul Normal 1.2-3.8 [facility] Comment on above: Performed By: #### T SH, LIVER, LIPID, BMP, T7 #### [facility] [address] [place] [address] Dr. Roberto Cabral Lymphocytes/100 WBC (Bld) 9.0 % Critically low 20.5-60.0 [facility] Comment on above: Performed By: #### T SH, LIVER, LIPID, BMP, T7 #### [facility] [address] [place] [address] Dr. Roberto Cabral MANUAL DIFF REQ NO Normal [facility] Comment on above: Performed By: #### T SH, LIVER, LIPID, BMP, T7 #### [facility] [address] [place] [address] Dr. Roberto Cabral MCH (RBC) [Entitic mass] 28.1 pg Normal 25.9-34.0 [facility] Comment on above: Performed By: #### T SH, LIVER, LIPID, BMP, T7 #### [facility] [address] [place] [address] Dr. Roberto Cabral MCHC (RBC) [Mass/Vol] 31.9 g/dL Normal 29.9-35.2 [facility] Comment on above: Performed By: #### T SH, LIVER, LIPID, BMP, T7 #### [facility] [address] [place] [address] Dr. Roberto Cabral MCV (RBC) [Entitic vol] 88.3 fL Normal 80.0-94.0 [facility] Comment on above: Performed By: #### T SH, LIVER, LIPID, BMP, T7 #### [facility] [address] [place] [address] Dr. Roberto Cabral MONO # 1.4 103/ul Critically high 0.3-0.8 [facility] Comment on above: Performed By: #### T SH, LIVER, LIPID, BMP, T7 #### [facility] [address] [place] [address] Dr. Roberto Cabral Monocytes/100 WBC (Bld) 8.8 % Normal 1.7-12.0 [facility] Comment on above: Performed By: #### T SH, LIVER, LIPID, BMP, T7 #### [facility] [address] [place] [address] Dr. Roberto Cabral NEUT # 12.3 103/ul Critically high 1.4-6.5 [facility] Comment on above: Performed By: #### T SH, LIVER, LIPID, BMP, T7 #### [facility] [address] [place] [address] Dr. Roberto Cabral Neutrophils/100 WBC (Bld) 78.9 % Critically high 43.0-75.0 [facility] Comment on above: Performed By: #### T SH, LIVER, LIPID, BMP, T7 #### [facility] [address] [place] [address] Dr. Roberto Cabral Platelet mean volume (Bld) [Entitic vol] 10.5 fL Normal 9.5-13.5 [facility] Comment on above: Performed By: #### T SH, LIVER, LIPID, BMP, T7 #### [facility] [address] [place] [address] Dr. Roberto Cabral PLT 316 103/ul Normal 150-450 [facility] Comment on above: Performed By: #### T SH, LIVER, LIPID, BMP, T7 #### [facility] [address] [place] [address] Dr. Roberto Cabral RBC 4.09 106/ul Critically low 4.70-6.10 [facility] Comment on above: Performed By: #### T SH, LIVER, LIPID, BMP, T7 #### [facility] [address] [place] [address] Dr. Roberto Cabral WBC 15.6 103/ul Critically high 4.0-11.0 [facility] Comment on above: Performed By: #### T SH, LIVER, LIPID, BMP, T7 #### [facility] [address] [place] [address] Dr. Roberto Cabral CULTURE URINEon 12-10-2021 CULTURE URINE Culture Observations : No growth Normal [facility] Comment on above: Performed By: #### T SH, LIVER, LIPID, BMP, T7 #### [facility] [address] [place] [address] Dr. Roberto Cabral ER URINE PROFILEon 2 Bilirubin Ql (U) Negative Normal NEGATIVE [facility] Comment on above: Performed By: #### E RUR #### [facility] [address] [place] [address] Dr. Roberto Cabral Clarity (U) CLEAR Normal CLEAR [facility] Comment on above: Performed By: #### E RUR #### [facility] [address] [place] [address] Dr. Roberto Cabral Color (U) LT. YELLOW Normal YELLOW [facility] Comment on above: Performed By: #### E RUR #### [facility] [address] [place] [address] Dr. Roberto Cabral ERUAHD A micrscopic examina tion will be performed if indicated. Normal [facility] Comment on above: Performed By: #### E RUR #### [facility] [address] [place] [address] Dr. Roberto Cabral Glucose Ql (U) Negative Normal NEGATIVE [facility] Comment on above: Performed By: #### E RUR #### [facility] [address] [place] [address] Dr. Roberto Cabral Hemoglobin Ql (U) Negative Normal NEGATIVE [facility] Comment on above: Performed By: #### E RUR #### [facility] [address] [place] [address] Dr. Roberto Cabral Ketones Ql (U) Negative Normal NEGATIVE [facility] Comment on above: Performed By: #### E RUR #### [facility] [address] [place] [address] Dr. Roberto Cabral LEUKOCYTES Negative Normal NEGATIVE [facility] Comment on above: Performed By: #### E RUR #### [facility] [address] [place] [address] Dr. Roberto Cabral Nitrite Ql (U) Negative Normal NEGATIVE [facility] Comment on above: Performed By: #### E RUR #### [facility] [address] [place] [address] Dr. Roberto Cabral pH (U) 5.0 [pH] Normal 5-9 [facility] Comment on above: Performed By: #### E RUR #### [facility] [address] [place] [address] Dr. Roberto Cabral SPEC GRAVITY 1.015 Normal 1.005-<=1.02 5 [facility] Comment on above: Performed By: #### E RUR #### [facility] [address] [place] [address] Dr. Roberto Cabral UA PROTEIN Negative Normal NEGATIVE/ TRACE [facility] Comment on above: Performed By: #### E RUR #### [facility] [address] [place] [address] Dr. Roberto Cabral UR MICRO IND NOT INDICATED Normal [facility] Comment on above: Performed By: #### E RUR #### [facility] [address] [place] [address] Dr. Roberto Cabral Urobilinogen Qn (U) 0.2 {Noman'U}/dL Normal 0.2 - 1.0 [facility] Comment on above: Performed By: #### E RUR #### [facility] [address] [place] [address] Dr. Roberto Cabral GI PANEL (PCR)on 12-10-2021 Adenovirus F 40/41 Not detected Normal NOT DETECTED [facility] Comment on above: Performed By: #### T SH, LIVER, LIPID, BMP, T7 #### [facility] [address] [place] [address] Dr. Roberto Cabral Astrovirus Not detected Normal NOT DETECTED [facility] Comment on above: Performed By: #### T SH, LIVER, LIPID, BMP, T7 #### [facility] [address] [address] [address] Roberto Cabral C. Diff toxin A/B Not detected Normal NOT DETECTED [facility] Comment on above: Performed By: #### T SH, LIVER, LIPID, BMP, T7 #### [facility] [address] [place] [address] Dr. Roberto Cabral Campylobacter Not detected Normal NOT DETECTED [facility] Comment on above: Performed By: #### T SH, LIVER, LIPID, BMP, T7 #### [facility] [address] [place] [address] Dr. Roberto Cabral Cryptosporidium Not detected Normal NOT DETECTED [facility] Comment on above: Performed By: #### T SH, LIVER, LIPID, BMP, T7 #### [facility] [address] [place] [address] Dr. Roberto Cabral Cyclos. Cayetanensis Not detected Normal NOT DETECTED [facility] Comment on above: Performed By: #### T SH, LIVER, LIPID, BMP, T7 #### [facility] [address] [place] [address] Dr. Roberto Cabral E. Coli O157 Not Applicable Normal Not Applicable [facility] Comment on above: Performed By: #### T SH, LIVER, LIPID, BMP, T7 #### [facility] [address] [place] [address] Dr. Roberto Cabral E. histolytica Not detected Normal NOT DETECTED [facility] Comment on above: Performed By: #### T SH, LIVER, LIPID, BMP, T7 #### [facility] [address] [address] [address] Roberto Cabral EAEC Not detected Normal NOT DETECTED [facility] Comment on above: Performed By: #### T SH, LIVER, LIPID, BMP, T7 #### [facility] [address] [address] [address] Roberto Cabral EIEC Not detected Normal NOT DETECTED [facility] Comment on above: Performed By: #### T SH, LIVER, LIPID, BMP, T7 #### [facility] [address] [address] [address] Roberto Cabral EPEC Not detected Normal NOT DETECTED [facility] Comment on above: Performed By: #### T SH, LIVER, LIPID, BMP, T7 #### [facility] [address] [address] [address] Roberto Cabral ETEC Not detected Normal NOT DETECTED [facility] Comment on above: Performed By: #### T SH, LIVER, LIPID, BMP, T7 #### [facility] [address] [address] [address] Roberto Fong Lamblia Not detected Normal NOT DETECTED [facility] Comment on above: Performed By: #### T SH, LIVER, LIPID, BMP, T7 #### [facility] [address] [place] [address] Dr. Roberto CARDENAS CONTROLS PASSED Normal [facility] Comment on above: Performed By: #### T SH, LIVER, LIPID, BMP, T7 #### [facility] [address] [address] [address] Roberto MAXWELL JAIRO HEADER GI PANEL BACTERIA Normal [facility] Comment on above: Performed By: #### T SH, LIVER, LIPID, BMP, T7 #### [facility] [address] [address] [address] Roberto IVEY ECOLI GI PANEL DIARRHEAGEN IC E.COLI / SHIGELLA Normal [facility] Comment on above: Performed By: #### T SH, LIVER, LIPID, BMP, T7 #### [facility] [address] [address] [address] Roberto IVEY INFO SEE BELOW Normal [facility] Comment on above: Result Comment: EAEC - Enteroaggregative E. Coli EPEC- Enteropathogenic E. Coli ETEC- Enterotoxigenic E. Coli lt/st STEC- Shigella-like toxin-producing E. Coli stx1/stx2 EIEC- Shigella/Enteroinvasive E. Coli Performed By: #### T SH, LIVER, LIPID, BMP, T7 #### [facility] [address] [address] [address] Roberto IVEY PARASITES GI PANEL PARASITES Normal [facility] Comment on above: Performed By: #### T SH, LIVER, LIPID, BMP, T7 #### [facility] [address] [address] [address] Roberto IVEY VIRUS GI PANEL VIRUSES Normal [facility] Comment on above: Performed By: #### T SH, LIVER, LIPID, BMP, T7 #### [facility] [address] [address] [address] Roberto Cabral Norovirus GI/GII Not detected Normal NOT DETECTED [facility] Comment on above: Performed By: #### T SH, LIVER, LIPID, BMP, T7 #### [facility] [address] [address] [address] Roberto Cabral P. Shigelloides Not detected Normal NOT DETECTED [facility] Comment on above: Performed By: #### T SH, LIVER, LIPID, BMP, T7 #### [facility] [address] [address] [address] Roberto Cabral Rotavirus A Not detected Normal NOT DETECTED [facility] Comment on above: Performed By: #### T SH, LIVER, LIPID, BMP, T7 #### [facility] [address] [address] [address] Roberto Cabral Salmonella Not detected Normal NOT DETECTED [facility] Comment on above: Performed By: #### T SH, LIVER, LIPID, BMP, T7 #### [facility] [address] [address] [address] Roberto Cabral Sapovirus Detected Abnormal NOT DETECTED [facility] Comment on above: Performed By: #### T SH, LIVER, LIPID, BMP, T7 #### [facility] [address] [address] [address] Roberto Cabral STEC Not detected Normal NOT DETECTED [facility] Comment on above: Performed By: #### T SH, LIVER, LIPID, BMP, T7 #### [facility] [address] [place] [address] Dr. Roberto Cabral Vibrio Not detected Normal NOT DETECTED [facility] Comment on above: Performed By: #### T SH, LIVER, LIPID, BMP, T7 #### [facility] [address] [place] [address] Dr. Roberto Cabral Vibrio Cholera Not detected Normal NOT DETECTED [facility] Comment on above: Performed By: #### T SH, LIVER, LIPID, BMP, T7 #### [facility] [address] [place] [address] Dr. Roberto Cabral Y. Enterocolitica Not detected Normal NOT DETECTED [facility] Comment on above: Performed By: #### T SH, LIVER, LIPID, BMP, T7 #### [facility] [address] [place] [address] Dr. Roberto Cabral POINT OF CARE GLUCOSEon 12-01 Glucose [Mass/Vol] 73 mg/dL Critically low 74-106 [facility] Comment on above: Performed By: #### P OCGLUC #### [facility] [address] [place] [address] Dr. Roberto Cabral Glucose [Mass/Vol] 69 mg/dL Critically low 74-106 [facility] Comment on above: Performed By: #### T SH, LIVER, LIPID, BMP, T7 #### [facility] [address] [place] [address] Dr. Roberto Cabral Glucose [Mass/Vol] 99 mg/dL Normal 74-106 [facility] Comment on above: Performed By: #### P OCGLUC #### [facility] [address] [place] [address] Dr. Roberto Cabral Glucose [Mass/Vol] 67 mg/dL Critically low 74-106 [facility] Comment on above: Performed By: #### T SH, LIVER, LIPID, BMP, T7 #### [facility] [address] [place] [address] Dr. Roberto Cabral Glucose [Mass/Vol] 74 mg/dL Normal 74-106 [facility] Comment on above: Performed By: #### P OCGLUC #### [facility] [address] [place] [address] Dr. Roberto Cabral Glucose [Mass/Vol] 55 mg/dL Critically low 74-106 [facility] Comment on above: Performed By: #### T SH, LIVER, LIPID, BMP, T7 #### [facility] [address] [place] [address] Dr. Roberto Cabral PROF 14(COMP METB)on 12-10- 022 Albumin [Mass/Vol] 3.1 g/dL Critically low 3.4-5.0 [facility] Comment on above: Performed By: #### T SH, LIVER, LIPID, BMP, T7 #### [facility] [address] [place] [address] Dr. Roberto Cabral Albumin/Globulin [Mass ratio] 0.9 {ratio} Normal [facility] Comment on above: Performed By: #### T SH, LIVER, LIPID, BMP, T7 #### [facility] [address] [place] [address] Dr. Roberto Cabral ALP [Catalytic activity/Vol] 73 U/L Normal 46-116 [facility] Comment on above: Performed By: #### T SH, LIVER, LIPID, BMP, T7 #### [facility] [address] [place] [address] Dr. Roberto Cabral ALT [Catalytic activity/Vol] 17 U/L Normal 16-63 [facility] Comment on above: Performed By: #### T SH, LIVER, LIPID, BMP, T7 #### [facility] [address] [place] [address] Dr. Roberto Cabral Anion gap [Moles/Vol] 17.7 mmol/L Normal [facility] Comment on above: Performed By: #### T SH, LIVER, LIPID, BMP, T7 #### [facility] [address] [place] [address] Dr. Roberto Cabral AST [Catalytic activity/Vol] 13 U/L Critically low 15-37 [facility] Comment on above: Performed By: #### T SH, LIVER, LIPID, BMP, T7 #### [facility] [address] [place] [address] Dr. Roberto Cabral Bilirubin [Mass/Vol] 0.2 mg/dL Normal 0.2-1.0 [facility] Comment on above: Performed By: #### T SH, LIVER, LIPID, BMP, T7 #### [facility] [address] [place] [address] Dr. Roberto Cabral Calcium [Mass/Vol] 8.7 mg/dL Normal 8.5-10.1 [facility] Comment on above: Performed By: #### T SH, LIVER, LIPID, BMP, T7 #### [facility] [address] [place] [address] Dr. Roberto Cabral Chloride [Moles/Vol] 110 mmol/L Critically high 98-107 [facility] Comment on above: Performed By: #### T SH, LIVER, LIPID, BMP, T7 #### [facility] [address] [place] [address] Dr. Roberto Cabral CO2 [Moles/Vol] 16.0 mmol/L Critically low 21.0-32.0 [facility] Comment on above: Performed By: #### T SH, LIVER, LIPID, BMP, T7 #### [facility] [address] [place] [address] Dr. Roberto Cabral Creatinine [Mass/Vol] 1.85 mg/dL Critically high 0.70-1.30 [facility] Comment on above: Performed By: #### T SH, LIVER, LIPID, BMP, T7 #### [facility] [address] [place] [address] Dr. Roberto Cabral EGFR-AF ALGERIAN 43 mL/min/1.73m2 Critically low >=60 [facility] Comment on above: Performed By: #### T SH, LIVER, LIPID, BMP, T7 #### [facility] [address] [place] [address] Dr. Roberto Cabral EGFR-NON AF ALGERIAN 36 mL/min/1.73m2 Critically low >=60 [facility] Comment on above: Performed By: #### T SH, LIVER, LIPID, BMP, T7 #### [facility] [address] [place] [address] Dr. Roberto Cabral Globulin (S) [Mass/Vol] 3.4 g/dL Normal [facility] Comment on above: Performed By: #### T SH, LIVER, LIPID, BMP, T7 #### [facility] [address] [place] [address] Dr. Roberto Cabral Glucose [Mass/Vol] 113 mg/dL Critically high 74-106 [facility] Comment on above: Performed By: #### T SH, LIVER, LIPID, BMP, T7 #### [facility] [address] [address] [address] Roberto Cabral Potassium [Moles/Vol] 4.7 mmol/L Normal 3.5-5.1 [facility] Comment on above: Performed By: #### T SH, LIVER, LIPID, BMP, T7 #### [facility] [address] [place] [address] Dr. Roberto Cabral Protein [Mass/Vol] 6.5 g/dL Normal 6.4-8.2 [facility] Comment on above: Performed By: #### T SH, LIVER, LIPID, BMP, T7 #### [facility] [address] [place] [address] Dr. Roberto Cabral Sodium [Moles/Vol] 139 mmol/L Normal 136-145 [facility] Comment on above: Performed By: #### T SH, LIVER, LIPID, BMP, T7 #### [facility] [address] [place] [address] Dr. Roberto Cabral Urea nitrogen [Mass/Vol] 66.0 mg/dL Critically high 7.0-18.0 [facility] Comment on above: Performed By: #### T SH, LIVER, LIPID, BMP, T7 #### [facility] [address] [place] [address] Dr. Roberto Cabral Urea nitrogen/Creatinin e [Mass ratio] 35.7 mg/mg Normal [facility] Comment on above: Performed By: #### T SH, LIVER, LIPID, BMP, T7 #### [facility] [address] [place] [address] Dr. Roberto Cabral CBC AUTO DIFFon 06-09-2022 BASO # 0.0 103/ul Normal 0.0-0.1 [facility] Comment on above: Performed By: #### T SH, LIVER, LIPID, BMP, T7 #### [facility] [address] [place] [address] Dr. Roberto Cabral Basophils/100 WBC (Bld) 0.2 % Normal 0.2-2.0 [facility] Comment on above: Performed By: #### T SH, LIVER, LIPID, BMP, T7 #### [facility] [address] [place] [address] Dr. Roberto Cabral EO # 0.3 103/ul Normal 0.0-0.7 [facility] Comment on above: Performed By: #### T SH, LIVER, LIPID, BMP, T7 #### [facility] [address] [place] [address] Dr. Roberto Cabral Eosinophils/100 WBC (Bld) 1.7 % Normal 0.9-7.0 [facility] Comment on above: Performed By: #### T SH, LIVER, LIPID, BMP, T7 #### [facility] [address] [place] [address] Dr. Roberto Cabral Erythrocyte distribution width (RBC) [Ratio] 15.4 % Critically high 11.0-15.0 [facility] Comment on above: Performed By: #### T SH, LIVER, LIPID, BMP, T7 #### [facility] [address] [place] [address] Dr. Roberto Cabral Hematocrit (Bld) [Volume fraction] 40.2 % Critically low 42.0-54.0 [facility] Comment on above: Performed By: #### T SH, LIVER, LIPID, BMP, T7 #### [facility] [address] [place] [address] Dr. Roberto Cabral Hemoglobin (Bld) [Mass/Vol] 12.6 g/dL Critically low 14.0-18.0 [facility] Comment on above: Performed By: #### T SH, LIVER, LIPID, BMP, T7 #### [facility] [address] [place] [address] Dr. Roberto Cabral IG # 0.09 10e3/ul Critically high 0.00-0.03 [facility] Comment on above: Performed By: #### T SH, LIVER, LIPID, BMP, T7 #### [facility] [address] [place] [address] Dr. Roberto Cabral IG % 0.5 % Normal 0.0-0.5 [facility] Comment on above: Performed By: #### T SH, LIVER, LIPID, BMP, T7 #### [facility] [address] [place] [address] Dr. Roberto Cabral LYMPH # 1.5 103/ul Normal 1.2-3.8 [facility] Comment on above: Performed By: #### T SH, LIVER, LIPID, BMP, T7 #### [facility] [address] [place] [address] Dr. Roberto Cabral Lymphocytes/100 WBC (Bld) 8.0 % Critically low 20.5-60.0 [facility] Comment on above: Performed By: #### T SH, LIVER, LIPID, BMP, T7 #### [facility] [address] [place] [address] Dr. Roberto Cabral MANUAL DIFF REQ NO Normal [facility] Comment on above: Performed By: #### T SH, LIVER, LIPID, BMP, T7 #### [facility] [address] [place] [address] Dr. Roberto Cabral MCH (RBC) [Entitic mass] 28.0 pg Normal 25.9-34.0 [facility] Comment on above: Performed By: #### T SH, LIVER, LIPID, BMP, T7 #### [facility] [address] [place] [address] Dr. Roberto Cabral MCHC (RBC) [Mass/Vol] 31.3 g/dL Normal 29.9-35.2 [facility] Comment on above: Performed By: #### T SH, LIVER, LIPID, BMP, T7 #### [facility] [address] [place] [address] Dr. Roberto Cabral MCV (RBC) [Entitic vol] 89.3 fL Normal 80.0-94.0 [facility] Comment on above: Performed By: #### T SH, LIVER, LIPID, BMP, T7 #### [facility] [address] [place] [address] Dr. Roberto Cabral MONO # 1.5 103/ul Critically high 0.3-0.8 [facility] Comment on above: Performed By: #### T SH, LIVER, LIPID, BMP, T7 #### [facility] [address] [place] [address] Dr. Roberto Cabral Monocytes/100 WBC (Bld) 8.2 % Normal 1.7-12.0 [facility] Comment on above: Performed By: #### T SH, LIVER, LIPID, BMP, T7 #### [facility] [address] [place] [address] Dr. Roberto Cabral NEUT # 14.9 103/ul Critically high 1.4-6.5 [facility] Comment on above: Performed By: #### T SH, LIVER, LIPID, BMP, T7 #### [facility] [address] [place] [address] Dr. Roberto Cabral Neutrophils/100 WBC (Bld) 81.4 % Critically high 43.0-75.0 [facility] Comment on above: Performed By: #### T SH, LIVER, LIPID, BMP, T7 #### [facility] [address] [place] [address] Dr. Roberto Cabral Platelet mean volume (Bld) [Entitic vol] 10.0 fL Normal 9.5-13.5 [facility] Comment on above: Performed By: #### T SH, LIVER, LIPID, BMP, T7 #### [facility] [address] [place] [address] Dr. Roberto Cabral PLT 358 103/ul Normal 150-450 [facility] Comment on above: Performed By: #### T SH, LIVER, LIPID, BMP, T7 #### [facility] [address] [place] [address] Dr. Roberto Cabral RBC 4.50 106/ul Critically low 4.70-6.10 [facility] Comment on above: Performed By: #### T SH, LIVER, LIPID, BMP, T7 #### [facility] [address] [place], [place] [address] Dr. Roberto Cabral WBC 18.3 103/ul Critically high 4.0-11.0 [facility] Comment on above: Performed By: #### T SH, LIVER, LIPID, BMP, T7 #### [facility] [address] [place], [place] [address] ABD/PELVIS WO CONon 12-09 CT ABD/PELVIS WO CON EXAM: CT ABD/PELVIS WO CON REASON FOR EXAM: Male, 76 years, NAUSEA WITH VOMITING, UNSPECIFIED. TECHNIQUE: Computed tomography of the abdomen and pelvis is performed in the axial projection from the lung bases to the pubic symphysis. Sagittal and coronal reconstructed images are performed. Dose reduction techniques were achieved by using automated exposure control and/or adjustment of mA and/or KVP according to patient size and/or use of iterative reconstruction technique. Study was performed without IV contrast. Study was performed without oral contrast. COMPARISON: None. FINDINGS: Lung bases: The lung bases are clear. There is no pleural effusion. The visualized portions of the heart are unremarkable. The lack of intravenous contrast slightly limits evaluation of the solid abdominal organs. Liver: The liver is normal. Gallbladder: The gallbladder has been removed. Spleen: There are tiny calcified granulomas within the spleen. Pancreas: The pancreas is normal. Adrenal glands: The adrenal glands are normal bilaterally. Right kidney: The kidney is normal in size. 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 There is no renal calculus or hydronephrosis. Left kidney: The kidney is normal in size. There is a 3 mm nonobstructing calculus in the inferior pole of the left kidney. No hydronephrosis. Stomach: The stomach is normal. Small bowel: The small bowel is normal. There is an oval radiodensity within distal small bowel likely representing ingested medication. Large bowel: There are colon diverticula, without surrounding inflammatory changes. Appendix: The appendix is visualized, and is normal. Aorta: There are mild atherosclerotic calcifications of the abdominal aorta. IVC: The IVC is normal. Retroperitoneum: Normal retroperitoneum. Bladder: The bladder is normal. Pelvic organs: There are calcifications within the prostate gland. Abdominal wall: Bilateral fat-containing inguinal hernias are present. Osseous structures: Degenerative changes are seen in the visualized spine. IMPRESSION: Diverticulosis, without acute diverticulitis. No bowel obstruction or acute renal pathology. Postoperative changes of cholecystectomy. Nonobstructing calculus in the inferior pole of the left kidney. Additional nonacute findings, as detailed above. Electronically authenticated by: DEVIN ORTIZ Date: 2021-12-09 20:39 Normal [facility] Covid-19 PCR (CVDTB)on SARS-CoV-2 (COVID-19) RNA JOSÉ+probe Ql (Unsp spec) Not detected Normal NOT DETECTED [facility] Comment on above: Result Comment: When diagnostic testing is negative, the possibility of a false negative should be considered in the context of a patient's recent exposures and the presence of clinical signs and symptoms consistent with SARS-CoV-2. This test is not yet approved or cleared by the [place] FDA. When there are no FDA-approved or cleared tests available, and other criteria are met, FDA can make tests available under an emergency access mechanism called an Emergency Use Authorization (EUA). The EUA for this test is supported by the Lead Generator of Health and Human Service's declaration that circumstances exist to justify the emergency use of in vitro diagnostics for the detection and/or diagnosis of the virus that causes COVID-19. This EUA will remain in effect for the duration of the COVID-19 declaration justifying emergency of IVDs, unless it is terminated or revoked by the FDA (after which the test may no longer be used). Performed By: #### T SH, LIVER, LIPID, BMP, T7 #### [facility] [address] [place] [address] Dr. Roberto Cabral LACTATE/LACTIC ACIDon 2021 Lactate [Moles/Vol] 1.1 mmol/L Normal 0.4-1.9 [facility] Comment on above: Performed By: #### T SH, LIVER, LIPID, BMP, T7 #### [facility] [address] [place] [address] Dr. Roberto Cabral LIPASEon 12-09-2021 Lipase [Catalytic activity/Vol] 186.0 U/L Normal 73.0-393.0 [facility] Comment on above: Performed By: #### T SH, LIVER, LIPID, BMP, T7 #### [facility] [address] [place] [address] Dr. Roberto Cabral PROF 14(COMP METB)on 022 Albumin [Mass/Vol] 3.6 g/dL Normal 3.4-5.0 [facility] Comment on above: Performed By: #### T SH, LIVER, LIPID, BMP, T7 #### [facility] [address] [place] [address] Dr. Roberto Cabral Albumin/Globulin [Mass ratio] 1.0 {ratio} Normal [facility] Comment on above: Performed By: #### T SH, LIVER, LIPID, BMP, T7 #### [facility] [address] [place] [address] Dr. Roberto Cabral ALP [Catalytic activity/Vol] 79 U/L Normal 46-116 [facility] Comment on above: Performed By: #### T SH, LIVER, LIPID, BMP, T7 #### [facility] [address] [place] [address] Dr. oRberto Cabral ALT [Catalytic activity/Vol] 19 U/L Normal 16-63 [facility] Comment on above: Performed By: #### T SH, LIVER, LIPID, BMP, T7 #### [facility] [address] [place] [address] Dr. Roberto Cabral Anion gap [Moles/Vol] 20.6 mmol/L Normal [facility] Comment on above: Performed By: #### T SH, LIVER, LIPID, BMP, T7 #### [facility] [address] [place] [address] Dr. Roberto Cabral AST [Catalytic activity/Vol] 19 U/L Normal 15-37 [facility] Comment on above: Performed By: #### T SH, LIVER, LIPID, BMP, T7 #### [facility] [address] [place] [address] Dr. Roberto Cabral Bilirubin [Mass/Vol] 0.3 mg/dL Normal 0.2-1.0 [facility] Comment on above: Performed By: #### T SH, LIVER, LIPID, BMP, T7 #### [facility] [address] [place] [address] Dr. Roberto Cabral Calcium [Mass/Vol] 9.4 mg/dL Normal 8.5-10.1 [facility] Comment on above: Performed By: #### T SH, LIVER, LIPID, BMP, T7 #### [facility] [address] [place] [address] Dr. Roberto Cabral Chloride [Moles/Vol] 107 mmol/L Normal 98-107 [facility] Comment on above: Performed By: #### T SH, LIVER, LIPID, BMP, T7 #### [facility] [address] [place] [address] Dr. Roberto Cabral CO2 [Moles/Vol] 14.9 mmol/L Critically low 21.0-32.0 [facility] Comment on above: Performed By: #### T SH, LIVER, LIPID, BMP, T7 #### [facility] [address] [place] [address] Dr. Roberto Cabral Creatinine [Mass/Vol] 2.11 mg/dL Critically high 0.70-1.30 [facility] Comment on above: Performed By: #### T SH, LIVER, LIPID, BMP, T7 #### [facility] [address] [place] [address] Dr. Roberto Cabral EGFR-AF ALGERIAN 37 mL/min/1.73m2 Critically low >=60 [facility] Comment on above: Performed By: #### T SH, LIVER, LIPID, BMP, T7 #### [facility] [address] [place] [address] Dr. Roberto Cabral EGFR-NON AF ALGERIAN 31 mL/min/1.73m2 Critically low >=60 [facility] Comment on above: Performed By: #### T SH, LIVER, LIPID, BMP, T7 #### [facility] [address] [place] [address] Dr. Roberto Cabral Globulin (S) [Mass/Vol] 3.5 g/dL Normal [facility] Comment on above: Performed By: #### T SH, LIVER, LIPID, BMP, T7 #### [facility] [address] [place] [address] [address] Roberto Cabral Glucose [Mass/Vol] 170 mg/dL Critically high 74-106 [facility] Comment on above: Performed By: #### T SH, LIVER, LIPID, BMP, T7 #### [facility] [address] [place] [address] Dr. Roberto Cabral Potassium [Moles/Vol] 5.5 mmol/L Critically high 3.5-5.1 [facility] Comment on above: Performed By: #### T SH, LIVER, LIPID, BMP, T7 #### [facility] [address] [place] [address] Dr. Roberto Cabral Protein [Mass/Vol] 7.1 g/dL Normal 6.4-8.2 [facility] Comment on above: Performed By: #### T SH, LIVER, LIPID, BMP, T7 #### [facility] [address] [place] [address] Dr. Roberto Cabral Sodium [Moles/Vol] 137 mmol/L Normal 136-145 [facility] Comment on above: Performed By: #### T SH, LIVER, LIPID, BMP, T7 #### [facility] [address] [place] [address] Dr. Roberto Cabral Urea nitrogen [Mass/Vol] 70.0 mg/dL Critically high 7.0-18.0 [facility] Comment on above: Performed By: #### T SH, LIVER, LIPID, BMP, T7 #### [facility] [address] [place] [address] Dr. Roberto Cabral Urea nitrogen/Creatinin e [Mass ratio] 33.2 mg/mg Normal [facility] Comment on above: Performed By: #### T SH, LIVER, LIPID, BMP, T7 #### [facility] [address] [place] [address] Dr. Roberto Cabral PROTIMEon 12-09-2021 INR Coag (PPP) [Relative time] 1.04 {INR} Normal [facility] Comment on above: Performed By: #### T SH, LIVER, LIPID, BMP, T7 #### [facility] [address] [place] [address] Dr. Roberto Cabral INR GUIDELINES SEE BELOW Normal [facility] Comment on above: Result Comment: NIKI RED INR: 2.0 - 3.0 CONDITIONS NOT LISTED BELOW 2.5 - 3.5 FOR PROSTHETIC HEART VALVE REPLACEMENT 2.5 - 3.5 RECURRENT THROMBOSIS Performed By: #### T SH, LIVER, LIPID, BMP, T7 #### [facility] [address] [place] [address] [address] Roberto Cabral PT Coag (PPP) [Time] 11.2 s Normal 9.0-11.6 [facility] Comment on above: Performed By: #### T SH, LIVER, LIPID, BMP, T7 #### [facility] [address] [place] [address] [address] Roberto Cabral PTTon 12-09-2021 aPTT Coag (Bld) [Time] 33.4 s Normal 22.3-36.2 [facility] Comment on above: Performed By: #### T SH, LIVER, LIPID, BMP, T7 #### [facility] [address] [place] [address] Dr. Roberto Cabral TROPONIN, HIGH SENSITIVITYon 12-09-2021 HSTROP 11.4 pg/mL Normal 4.0-76.1 [facility] Comment on above: Result Comment: CUT- OFF POINTS HAVE BEEN ESTABLISHED BASED ON THE FOURTH UNIVERSAL DEFINITIONS OF MYOCARDIAL INFARCTION. THE UPPER REFERENCE LIMIT (URL) OF TROPONIN, DEFINED THE 99TH PERCENTILE OF cTnI DISTRIBUTION IN A REFERENCE POPULATION, HAS BEEN CONFIRMED THE DECISION THRESHOLD FOR [place] DIAGNOSIS. Performed By: #### T SH, LIVER, LIPID, BMP, T7 #### [facility] [address] [place] [address] Dr. Roberto Cabral Pre-Certification Formon Pre-Certification Form [id number]#[id number]:127 Normal [facility] Facesheeton 12-01-2021 Facesheet [id number]#1.00CD:127 Normal [facility] General Surgery Office/Clini c Noteon 11-30-2021 General Surgery Office/Clinic Note Chief Complaint follow up colonoscopy and EGD HPI Staff 13 day post operative follow up post colonoscopy and EGD with antral biopsy. Continues to experience epigastric pain, nausea and bloating. History of Present Illness s/p EGD and colonoscopy due to abd pain/bloating; mild anemia; had antral gastritis with superficial ulcerations; bx negative for H pylori; normal colon; still with similar symptoms; does drink coffee in morning and carbonated beverages during the day; recommend these be eliminated from diet; has had UGI and sbft in past; and upper abd US; no recent abd/pelvic ct scan. does report some wt loss due to bloating and decreased appetite. Review of Systems ROS - Provider Constitutional: no fever, no sweats, yes weight loss. Eyes: no glasses, no blurred vision, no visual loss. ENMT: no dentures, no hoarseness, no swallowing difficulties, no hearing loss, no ear infection(s), no nose bleeds. Cardiovascular: normal blood pressure, no chest pain, regular heartbeat, no heart murmur. Respiratory: no shortness of breath, no cough, no asthma, no wheezing. Gastrointestinal: no nausea, no vomiting, no diarrhea, no constipation, no blood in stool, no change in bowel habits, yes abdominal pain, no hepatitis. Genitourinary: no kidney stones, no urine infection, no dysuria. Musculoskeletal: no pain, no weakness. Skin: no changing moles, no rash, no skin lumps. Neurologic: no seizures, no epilepsy, no headache. Psychiatric: no emotional or psychiatric problem. Heme/Lymph: no bleeding problems, no anemia, no blood clots, no transfusions. Allergy/Immunologic: no swollen lymph nodes/glands, no IV drug abuse. Other: Additional ROS info: Except as noted in the above Review of Systems and in the History of Present Illness, all other systems have been reviewed and are negative or noncontributory. Assessment/Plan 1. Epigastric pain (R10.13: Epigastric pain) make dietary changes; discontinue NSAIDs; continue Carafate and increase Protonix to bid; will obtain abd/pelvic ct scan for further evaluation; will call patient with results; patient to call sooner if problems/questions. Ordered: Creatinine CT Abdomen/Pelvis w/ Contrast 2. Bloating (R14.0: Abdominal distension (gaseous)) see # 1 Ordered: Creatinine CT Abdomen/Pelvis w/ Contrast 3. Loss of appetite (R63.0: Anorexia) see # 1 Ordered: Creatinine CT Abdomen/Pelvis w/ Contrast 4. Gastritis (K29.70: Gastritis, unspecified, without bleeding) see # 1 Ordered: Creatinine CT Abdomen/Pelvis w/ Contrast Follow-up No qualifying data available Problem List/Past Medical History Ongoing Allergic rhinitis Anemia Anxiety Asthma Bloating BMI 37.0-37.9, adult BPH (benign prostatic hyperplasia) Chronic prostatitis Dependent edema Diabetes Eczema Epigastric pain Fibromyalgia Gastritis GERD (gastroesophageal reflux disease) History of alcohol abuse History of nephrolithiasis HTN (hypertension) Hypercholesterolemia Hyperlipidemia Hypermetropia Impotence Loss of appetite Obstructive sleep apnea syndrome Sleep apnea Historical No qualifying data Procedure/Surgical History Colonoscopy (11/17/2021), EGD - Esophagogastroduodenoscopy (11/17/2021), Colonoscopy (12/20/2016), Cholecystectomy. Medications aspirin 81 mg Oral EC Tab, 81 mg= 1 tab(s), Oral, Daily benazepril 40 mg oral tablet, 40 mg= 1 tab(s), Oral, Daily Cardura 4 mg Tab, 4 mg= 1 tab(s), Oral, Daily Diclofenac 75mg Tab-DR, 1 tab(s), Oral, BID glimepiride 4 mg Tab, 4 mg= 1 tab(s), Oral, Daily Lasix 40 mg Tab, 40 mg= 1 tab(s), Oral, Daily Levsin 0.125 mg oral tablet, 0.125 mg= 1 tab(s), Oral, QID Linzess 145 mcg oral capsule, 145 mcg= 1 cap(s), Oral, Daily metformin 500 mg oral tablet, 500 mg= 1 tab(s), Oral, BID metoprolol tartrate 100 mg Tab, 100 mg= 1 tab(s), Oral, BID Pantoprazole [address] Tab, 40 mg= 1 tab(s), Oral, Daily potassium chloride 20 mEq ER Tab, 20 mEq= 1 tab(s), Oral, BID simvastatin 20 mg Tab, 20 mg= 1 tab(s), Oral, Once a day (at bedtime) sucralfate 1 g Tab, 1 gm= 1 tab(s), Oral, QIDACHS Allergies sulfa drugs (Unknown) Social History Alcohol - Denies Alcohol Use, 10/27/2021 Substance Abuse - Denies Substance Abuse, 10/27/2021 Tobacco Former smoker, quit more than 30 days ago Tobacco Use:. Never Smokeless Tobacco Use:. Cigarettes, 0.25 per day. Started age 20.0 Years. Stopped age 40 Years., 10/27/2021 Family History Cardiac arrest: Father. Dementia: Mother. Immunizations Vaccine Date Status SARS-CoV-2 (COVID-19) Ad26 vaccine 06/25/2021 Recorded SARS-CoV-2 (COVID-19) Ad26 vaccine 09/22/2020 Recorded SARS-CoV-2 (COVID-19) Ad26 vaccine 08/31/2020 Recorded Normal [facility] Comment on above: Result Comment: Elec tronically Signed By: HUMBERTO CRAWLEY, Gwen Mata\Date and Time Signed: 11/30/21 17:22 EDT Outside Colonoscopyon 2021 Outside Colonoscopy [id number]#[id number]:127 Normal [facility] Pathology Noteon 11-22-2021 Pathology Note [id number]#1.00CD:127 Normal [facility] POINT OF CARE GLUCOSEon 10-31 Glucose [Mass/Vol] 115 mg/dL Critically high 74-106 [facility] Comment on above: Performed By: #### T SH, LIVER, LIPID, BMP, T7 #### [facility] [address] [address] [address] Roberto Cabral Pre-Certification Formon Pre-Certification Form [id number]#[id number]:127 Normal [facility] Consent for Procedure/Surger yon 10-28-2021 Consent for Procedure/Surgery [id number]:127 Normal [facility] Ambulatory Visit Summaryon 0 10-27-2021 Ambulatory Visit Summary CASE, LAM Gloria :1945 [id number] Visit Date:10/27/2021 Ambulatory Visit Instructions Your Care Team Attending Physician - HUMBERTO CRAWLEY, Gwen Perdomo Primary Care Physician - Adonay Zhang MD Referring Physician - Adonay Zhang MD This Is Your Medications List aspirin (aspirin 81 mg Oral EC Tab) benazepril (benazepril 40 mg oral tablet) diclofenac (Diclofenac 75mg Tab-DR) doxazosin (Cardura 4 mg Tab) furosemide (Lasix 40 mg Tab) glimepiride (glimepiride 4 mg Tab) hyoscyamine (Levsin 0.125 mg oral tablet) linaclotide (Linzess 145 mcg oral capsule) metformin (metformin 500 mg oral tablet) metoprolol (metoprolol tartrate 100 mg Tab) pantoprazole (Pantoprazole [address] Tab) potassium chloride (potassium chloride 20 mEq ER Tab) simvastatin (simvastatin 20 mg Tab) sucralfate (sucralfate 1 g Tab) Procedures Performed Colonoscopy (12/20/2016), Cholecystectomy. Discharge Vitals Heart Rate (Peripheral) 72 Respiratory Rate 16 Blood Pressure 120/64 Height 160 cm Height 160.0 cm Weight 95.5 kg Weight 95.5 kg BMI 37.3 Medications What How Much When Instructions Unchanged aspirin (aspirin 81 mg Oral EC Tab) 1 Tablets By Mouth Every day Unchanged benazepril (benazepril 40 mg oral tablet) 1 Tablets By Mouth Every day Unchanged diclofenac (Diclofenac 75mg Tab-DR) 1 Tablets By Mouth 2 times a day Unchanged doxazosin (Cardura 4 mg Tab) 1 Tablets By Mouth Every day Unchanged furosemide (Lasix 40 mg Tab) 1 Tablets By Mouth Every day Unchanged glimepiride (glimepiride 4 mg Tab) 1 Tablets By Mouth Every day Unchanged hyoscyamine (Levsin 0.125 mg oral tablet) 1 Tablets By Mouth 4 times a day Unchanged linaclotide (Linzess 145 mcg oral capsule) 1 Capsules By Mouth Every day Unchanged metformin (metformin 500 mg oral tablet) 1 Tablets By Mouth 2 times a day Unchanged metoprolol (metoprolol tartrate 100 mg Tab) 1 Tablets By Mouth 2 times a day Unchanged pantoprazole (Pantoprazole [address] Tab) 1 Tablets By Mouth Every day Unchanged potassium chloride (potassium chloride 20 mEq ER Tab) 1 Tablets By Mouth 2 times a day Unchanged simvastatin (simvastatin 20 mg Tab) 1 Tablets By Mouth Once a day (at bedtime) Unchanged sucralfate (sucralfate 1 g Tab) 1 Tablets By Mouth Four times a day (before meals and at bedtime) Allergies sulfa drugs (Unknown) Problems Ongoing - Any problem that you are currently receiving treatment for. Allergic rhinitis Anxiety Asthma BMI 37.0-37.9, adult BPH (benign prostatic hyperplasia) Chronic prostatitis Dependent edema Diabetes Eczema Fibromyalgia GERD (gastroesophageal reflux disease) History of alcohol abuse History of nephrolithiasis HTN (hypertension) Hypercholesterolemia Hyperlipidemia Hypermetropia Impotence Obstructive sleep apnea syndrome Sleep apnea Normal [facility] Physician Referralon 022 Physician Referral [id number]:127 Normal [facility] Vital Signs Date Time Vital Sign Value Performing Clinician Rodney fowler 10-27-2021 14:12-0400 Blood Pressure Location [facility] [place] 10-27-2021 14:12-0400 Diastolic blood pressure 64 mm[Hg] [facility] [place] 10-27-2021 14:12-0400 Heart rate 72 /min [facility] [place] 10-27-2021 14:12-0400 Respiratory rate 16 /min [facility] [place] 10-27-2021 14:12-0400 Systolic blood pressure 120 mm[Hg] [facility] Encounters Encounter Date Encounter Type Care Provider Facility Start: 10-14-2022 End: 10-15-[address] ADONAY ZHANG . Facility: Start: 09-01-2022 End: 09-02-[address] ADONAY ZHANG . Facility:[facility] Start: 02-21-2022 End: 02-21-[address] ADONAY ZHANG . Facility:[facility] Start: 12-14-2021 End: 12-15-[address] ADONAY ZHANG . Facility:[facility] Start: 12-10-2021 End: 12-11-[address] ADONAY ZHANG . Facility:[facility] Start: 11-17-2021 End: 11-17-[address] GWEN LORENZO . Facility:[facility] Start: 10-27-2021 End: 10-27-2021 Patient encounter procedure Gwen LORENZO [facility] Start: 01-18-2017 End: 01-19-2017 Ambulatory DEFAULT PHYSICIAN Facility:[facility] Procedures Date Procedure Procedure Detail Performing Clinician Start: 10-14-[address] ANANT ZHANG . Comment on above: Performed By: #### T SH, LIVER, LIPID, BMP, T7 #### [facility] [address] [place] [address] Dr. Roberto Cabral Start: 12-20-2016 Colonoscopy Gwen WELCH Cholecystectomy Gwen MEYL Immunizations Immunization Date Immunization Notes Care Provider Herlinda [facility] 06-25-2021 SARS-CoV-2 (COVID-19 ) Ad26 vaccine, recombinant Gwen NILL [facility] 09-22-2020 SARS-CoV-2 (COVID-19 ) Ad26 vaccine, recombinant Gwen NILL [facility] 08-31-2020 SARS-CoV-2 (COVID-19 ) Ad26 vaccine, recombinant Gwen NILL [facility] Payers Date Payer Category Payer Unknown [id number] 1945 Unknown [id number] 2.16.84 [id number] 1945 Unknown [id number] 2.16.84 [id number] 1945 Unknown [id number] 2.16.84 [id number] 1945 Unknown [id number] 2.16.84 [id number] 1945 Unknown [id number] 2.16.84 [id number] 1945 Unknown [id number] 2.16.84 [id number] Unknown Social History Date Type Detail Facility Start: 10-27-2021 Tobacco smoking status Ex-smoker (fi nding) [facility] Tobacco smoking status Never [facility] Sex Assigned At Male [facility] Clinical Note 11-17-2021 Note Date & Type Note Facility 11-17-2021 Note OPERATIVE NOTE OPERATION DATE: 11/17/2021 PREOPERATIVE DIAGNOSIS: Anemia, epigastric abdominal pain. POSTOPERATIVE DIAGNOSIS: Antral gastritis and ulcerations, normal colon. PROCEDURE: EGD with antral biopsy and colonoscopy to cecum. SURGEON: Gwen Lorenzo M.D. ANESTHESIA: Monitored anesthesia care. ESTIMATED BLOOD LOSS: Less than 1 mL. INDICATIONS AND CONSENT: Patient is a 76-year-old male recently found to have anemia and epigastric abdominal pain. Indications, risks, benefits, alternatives of proceeding with EGD and colonoscopy were explained extensively to the patient, including the risks of bleeding, aspiration, esophageal/gastric/duodenal or colonic perforation or anesthetic complications. All of his questions were answered. Informed consent was obtained. PROCEDURE: Patient brought to the operating room, placed in the left lateral decubitus position. Monitored anesthesia care was provided. A bite block was placed in the patient's mouth. Scope was inserted into the oropharynx. Under direct visualization, it was advanced into the esophagus, past the cricopharyngeus, down to the stomach. The stomach was insufflated with air. The pylorus was traversed down to the descending portion of the duodenum. There was no evidence of duodenitis or ulceration. There was no scarring within the pyloric channel. Scope was pulled back into the stomach and retroflexed. There was noted to be no significant hiatal hernia. Within the antrum, there was noted to be some superficial ulcerations with no visible vessel, no bleeding. There was some antral gastritis as well. Several biopsies were obtained with cold biopsy forceps with good hemostasis. The GE junction was noted at approximately 40 cm. There was no distal esophagitis or Galloway's changes. Remainder of the esophagus was unremarkable. The scope was then withdrawn. The patient was then positioned for colonoscopy. Rectal exam was performed which showed no masses or blood. Scope was inserted into the anal canal. Under direct visualization was advanced. With the aid of abdominal compression, it was advanced to the cecum where cecal markings were clearly identified. There was noted to be a good prep. Upon withdrawal of the scope, mucosal surfaces were carefully examined. There were no mass lesions or polyps. No inflammatory changes or ulcerations. No significant diverticulosis. The scope was retroflexed in the anal canal. There were noted to be some prominent rectal veins. No significant hemorrhoidal disease. Scope was then withdrawn. Patient tolerated procedure well, was sent to recovery room in good condition. Follow up colonoscopy should be in 10 years, if patient is in good health for screening. CC: Adonay Zhang M.D. [facility] Signed and Approved by: DR GWEN LORENZO . 11/24/2021 10:45:00 [facility] Clinical Note 10-27-2021 Note Date & Type Note Facility 10-27-2021 Note Chief Complaint consultation for anemia HPI Staff 76 year old male presents on consultation from Dr. Zhang for anemia. 10/12- HGB 12.6, HCT 40.5. Last colonoscopy completed 12/2016 with diverticulosis. Reports epigastric pain after eating. Denies rectal pain or rectal bleeding. Denies change in bowel habits. Denies nausea, vomiting or heartburn. Reports 30 pound weight loss over several months which he contributes to having pneumonia. Denies fatigue, dizziness, lightheadedness or SOB. History of Present Illness 76 yo male with h/o htn, hypercholesterolemia, DMII, asthma, KELI, fibromyalgia, GERD, referred for anemia and epigastric abdominal pain; patient reports postprandial epigastric pain, sharp, some radiation to chest, no GERD, no dysphagia, no h/o ulcer disease; last colonoscopy 12/2016 with diverticulosis; no previous EGD; abdominal operations significant for LS cholecystectomy; denies asa or NSAID use; no SBE prophylaxis; no fmhx of GI malignancy or IBD. Review of Systems PHQ Score Initial Depression Screen Score: 0 ROS - Provider Constitutional: no fever, no sweats, no weight loss. Eyes: no glasses, no blurred vision, no visual loss. ENMT: no dentures, no hoarseness, no swallowing difficulties, no hearing loss, no ear infection(s), no nose bleeds. Cardiovascular: normal blood pressure, no chest pain, regular heartbeat, no heart murmur. Respiratory: no shortness of breath, no cough, no asthma, no wheezing. Gastrointestinal: no nausea, no vomiting, no diarrhea, no constipation, no blood in stool, no change in bowel habits, mild abdominal pain, no hepatitis. Genitourinary: no kidney stones, no urine infection, no dysuria. Musculoskeletal: no pain, no weakness. Skin: no changing moles, no rash, no skin lumps. Neurologic: no seizures, no epilepsy, no headache. Psychiatric: no emotional or psychiatric problem. Heme/Lymph: no bleeding problems, no anemia, no blood clots, no transfusions. Allergy/Immunologic: no swollen lymph nodes/glands, no IV drug abuse. Other: Additional ROS info: Except as noted in the above Review of Systems and in the History of Present Illness, all other systems have been reviewed and are negative or noncontributory. Physical Exam Vitals & Measurements HR: 72(Peripheral) RR: 16 BP: 120/64 HT: 160 cm HT: 160.0 cm WT: 95.5 kg WT: 95.5 kg BMI: 37.3 HEENT: normal conjunctiva, sclera clear, no scleral icterus, EOM intact, PERRLA, oral mucosa moist without lesions. Neck: trachea midline, no mass, symmetric, no thyromegaly or nodules, no adenopathy Respiratory: lungs CTA, respirations non labored. Cardiovascular: regular rate and rhythm, no murmur, no pedal edema or varicosities. Gastrointestinal: obese, soft, non distended, no tenderness, no masses, no palpable hernias, diastasis recti no, no hepatosplenomegaly; normal bs Lymphatic: no cervical adenopathy, Musculoskeletal: normal gait, digits and nails without infection, nodes, cyanosis, clubbing. Skin: no rashes, no lesions, no ulcers, no subcutaneous nodules, induration. Psychiatric/Neuro: oriented to time, place, person, judgement normal, affect appropriate for age, insight intact, no focal deficits. Tests: review of old records completed, Discussed surgical options, risks, and possible complications with patient. Assessment/Plan 1. Epigastric pain (R10.13: Epigastric pain) plan EGD and colonoscopy under anesthesia for further evaluation, informed consent obtained. 2. GERD (gastroesophageal reflux disease) (K21.9: Gastro-esophageal reflux disease without esophagitis) see # 1 3. Anemia (D64.9: Anemia, unspecified) see # 1 Follow-up No qualifying data available Problem List/Past Medical History Ongoing Allergic rhinitis Anemia Anxiety Asthma BMI 37.0-37.9, adult BPH (benign prostatic hyperplasia) Chronic prostatitis Dependent edema Diabetes Eczema Epigastric pain Fibromyalgia GERD (gastroesophageal reflux disease) History of alcohol abuse History of nephrolithiasis HTN (hypertension) Hypercholesterolemia Hyperlipidemia Hypermetropia Impotence Obstructive sleep apnea syndrome Sleep apnea Historical No qualifying data Procedure/Surgical History Colonoscopy (12/20/2016), Cholecystectomy. Medications aspirin 81 mg Oral EC Tab, 81 mg= 1 tab(s), Oral, Daily benazepril 40 mg oral tablet, 40 mg= 1 tab(s), Oral, Daily Cardura 4 mg Tab, 4 mg= 1 tab(s), Oral, Daily Diclofenac 75mg Tab-DR, 1 tab(s), Oral, BID glimepiride 4 mg Tab, 4 mg= 1 tab(s), Oral, Daily Lasix 40 mg Tab, 40 mg= 1 tab(s), Oral, Daily Levsin 0.125 mg oral tablet, 0.125 mg= 1 tab(s), Oral, QID Linzess 145 mcg oral capsule, 145 mcg= 1 cap(s), Oral, Daily metformin 500 mg oral tablet, 500 mg= 1 tab(s), Oral, BID metoprolol tartrate 100 mg Tab, 100 mg= 1 tab(s), Oral, BID Pantoprazole [address] Tab, 40 mg= 1 tab(s), Oral, Daily potassium chloride 20 mEq ER Tab, 20 mEq= 1 tab(s), Oral, BID simvastatin 20 mg Tab, 2 (more content not included)... [facility] Comment on above: Result Comment: Elec tronically Signed By: HUMBERTO CRAWLEY, Gwen Whitaker.[email or web address]\Date and Time Signed: 10/27/21 19:49 EDT Evaluation + Plan note Note Date & Type Note Facility Evaluation + Plan note No data available for this section [facility] Discharge instructions Note Date & Type Note Facility Hospital Discharge instructions No data available for this section [facility] Summary Purpose Family History No Family History Records FoundNo Family History Records FoundNo Family History Records Found Advance Directives No Advanced Directives Records FoundNo Advanced Directives Records FoundNo Advanced Directives Records Found Additional Source Comments (unrecognized sect ion and content) No Status Records FoundNo Status Records FoundNo Status Records Found INFORMATION SOURCE (unrecogn ized section and content) DATE CREATED AUTHOR 12/27/2017 [facility] DATE CREATED AUTHOR AUTHOR'S ORGANIZ ATION 12/18/2021 [facility] DATE CREATED AUTHOR AUTHOR'S ORGANIZ ATION 10/20/2022 [facility] FOR RECORDS PERTAINING TO PATIENTS WHO ARE OR HAVE BEEN ENROLLED IN A CHEMICAL DEPENDENCY/SUBSTANCEABUSE PROGRAM, SOME INFORMATION MAY BE OMITTED. This clinical summary was aggregated from multiple sources. Caution should be exercised in using it in the provision of clinical care. This summary normalizes information from multiple sources, and as a consequence, information in this document may materially change the coding, format and clinical context of patient data. In addition, data may be omitted in some cases. CLINICAL DECISIONS SHOULD BE BASED ON THE PRIMARY CLINICAL RECORDS. [employer] [facility]. provides no warranty or guarantee of the accuracy or completeness of information in this document.
[2023-08-07 10:52] LABS: Basophils Absolute Auto 0.1 10^3/uL (0.0-0.1); Basophils Percent Auto 0.7 % (0.2-2.0); Eosinophils Absolute Auto 0.4 10^3/uL (0.0-0.7); Eosinophils Percent Auto 4.8 % (0.9-7.0); Hematocrit 30.9 % (42.0-54.0); Hemoglobin 8.2 g/dL (14.0-18.0); Immature Granulocytes Abs Auto 0.03 10^3/uL (0.00-0.03); Immature Granulocytes Pct Auto 0.3 % (0.0-0.5); Lymphocytes Absolute Auto 1.6 10^3/uL (1.2-3.8); Lymphocytes Percent Auto 17.6 % (20.5-60.0); Mean Corpuscular HGB Conc 26.5 g/dL (29.9-35.2); Mean Corpuscular Hemoglobin 18.3 pg (25.9-34.0); Mean Corpuscular Volume 69.1 fL (80.0-94.0); Mean Platelet Volume 9.1 fL (9.5-13.5); Monocytes Absolute Auto 0.9 10^3/uL (0.3-0.8); Neutrophils Absolute Auto 5.9 10^3/uL (1.4-6.5); Neutrophils Percent Auto 66.6 % (43.0-75.0); Platelet Count 326 10^3/uL (150-450); Red Blood Count 4.47 10^6/uL (4.70-6.10); Red Cell Distribution Width 18.6 % (11.0-15.0); White Blood Count 8.9 10^3/uL (4.0-11.0)
[2023-08-07 11:18] LABS: INR 0.98; Partial Thromboplastin Time 28.2 sec (22.3-36.2); Prothrombin Time 10.4 sec (9.0-11.6)
== END 2023-08-07 10:25 | disposition home or self-care (01) ==
LOC: LAB 10:25
PROVIDERS: PCP Family Medicine; Visit Provider Family Medicine
DX: D64.9 Anemia, unspecified (principal)
CPT/HCPCS: 36415; 85025; 85610; 85730

== ENCOUNTER 2023-08-09 09:55 | Outpatient (OUT) | payer MEDICARE, SELFPAY ==
[2023-08-09 10:59] LABS: Basophils Absolute Auto 0.1 10^3/uL (0.0-0.1); Basophils Percent Auto 0.7 % (0.2-2.0); Eosinophils Absolute Auto 0.4 10^3/uL (0.0-0.7); Hematocrit 31.1 % (42.0-54.0); Immature Granulocytes Abs Auto 0.03 10^3/uL (0.00-0.03); Immature Granulocytes Pct Auto 0.4 % (0.0-0.5); Lymphocytes Absolute Auto 1.5 10^3/uL (1.2-3.8); Lymphocytes Percent Auto 17.7 % (20.5-60.0); Mean Corpuscular HGB Conc 25.7 g/dL (29.9-35.2); Mean Corpuscular Hemoglobin 17.9 pg (25.9-34.0); Mean Corpuscular Volume 69.6 fL (80.0-94.0); Mean Platelet Volume 9.7 fL (9.5-13.5); Monocytes Absolute Auto 0.9 10^3/uL (0.3-0.8); Monocytes Percent Auto 10.5 % (1.7-12.0); Neutrophils Absolute Auto 5.5 10^3/uL (1.4-6.5); Neutrophils Percent Auto 65.7 % (43.0-75.0); Platelet Count 321 10^3/uL (150-450); Red Blood Count 4.47 10^6/uL (4.70-6.10); Red Cell Distribution Width 18.5 % (11.0-15.0); White Blood Count 8.4 10^3/uL (4.0-11.0)
== END 2023-08-09 09:56 | disposition home or self-care (01) ==
LOC: LAB 09:56
PROVIDERS: PCP Family Medicine; Visit Provider Family Medicine
DX: D64.9 Anemia, unspecified (principal)
CPT/HCPCS: 36415; 85025

== ENCOUNTER 2023-08-10 11:08 | Outpatient (OUT) | payer MEDICARE, SELFPAY ==
--- OUTSIDE RECORDS SUMMARY | 2023-08-10 11:29 | XMS_ITS | CCD ---
Author Name Unknown Address [address] [place] [address] Organization [facility] Care Team Providers Care Garnishment Specialist Name Role Phone PHYSICIAN, DEFAULT Unavailable Unavailable PHYSICIAN, DEFAULT Unavailable Unavailable Adonay Zhang Primary Care Physician HOY ., DR URIAS Admitting Unavailable HOY [...] DR URIAS Consulting Unavailable GRECHNY ., JOSE SILVA Consulting UnavailDEVIN Shook Consulting Unavailable NILL ., [...] Drug allergy Unknown (qualifier value) General Surgery [place] Work Phone: Medications Current Medications Medication Drug [...] 12-15-2021 Chronic Other aftercare (1 source) 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; Translations: [OTH PRISON CURRENT DRUG THERAPY] Onset: 10-20-2022 Episodic Other [...] Onset: 12-14-2021 Episodic Other aftercare (1 source) 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 Roberto Cabral Basophils/100 WBC (Bld) 0.7 % Normal 0.2-2.0 [facility] Comment on above: Performed By: #### T SH, LIVER, LIPID, BMP, T7 #### [facility] [address] [place] [address] Dr. Roberto Cabral EO # 0.5 103/ul Normal 0.0-0.7 [facility] Comment on above: Performed By: #### T SH, LIVER, LIPID, BMP, T7 #### [facility] [address] [place] [address] Dr. Roberto Cabral Eosinophils/100 WBC (Bld) 5.3 % Normal 0.9-7.0 [facility] Comment on above: Performed By: #### T SH, LIVER, LIPID, BMP, T7 #### [facility] [address] [place] [address] Dr. Roberto Cabral Erythrocyte distribution width (RBC) [Ratio] 15.8 % Critically high 11.0-15.0 [facility] Comment on above: Performed By: #### T SH, LIVER, LIPID, BMP, T7 #### [facility] [address] [place] [address] Dr. Roberto Cabral Hematocrit (Bld) [Volume fraction] 34.4 % Critically low 42.0-54.0 [facility] Comment on above: Performed By: #### T SH, LIVER, LIPID, BMP, T7 #### [facility] [address] [place] [address] Dr. Roberto Cabral Hemoglobin (Bld) [Mass/Vol] 10.2 g/dL Critically low 14.0-18.0 [facility] Comment on above: Performed By: #### T SH, LIVER, LIPID, BMP, T7 #### [facility] [address] [place] [address] Dr. Roberto Cabral IG # 0.03 10e3/ul Normal 0.00-0.03 [facility] Comment on above: Performed By: #### T SH, LIVER, LIPID, BMP, T7 #### [facility] [address] [place] [address] Dr. Roberto Cabral IG % 0.3 % Normal 0.0-0.5 [facility] Comment on above: Performed By: #### T SH, LIVER, LIPID, BMP, T7 #### [facility] [address] [place] [address] Dr. Roberto Cabral LYMPH # 1.9 103/ul Normal 1.2-3.8 [facility] Comment on above: Performed By: #### T SH, LIVER, LIPID, BMP, T7 #### [facility] [address] [place] [address] Dr. Roberto Cabral Lymphocytes/100 WBC (Bld) 21.0 % Normal 20.5-60.0 [facility] Comment on above: Performed By: #### T SH, LIVER, LIPID, BMP, T7 #### [facility] [address] [place] [address] Dr. Roberto Cabral MANUAL DIFF REQ NO Normal [facility] Comment on above: Performed By: #### T SH, LIVER, LIPID, BMP, T7 #### [facility] [address] [place] [address] Dr. Roberto Cabral MCH (RBC) [Entitic mass] 22.7 pg Critically low 25.9-34.0 [facility] Comment on above: Performed By: #### T SH, LIVER, LIPID, BMP, T7 #### [facility] [address] [place] [address] Dr. Roberto Cabral MCHC (RBC) [Mass/Vol] 29.7 g/dL Critically low 29.9-35.2 [facility] Comment on above: Performed By: #### T SH, LIVER, LIPID, BMP, T7 #### [facility] [address] [place] [address] Dr. Roberto Cabral MCV (RBC) [Entitic vol] 76.6 fL Critically low 80.0-94.0 [facility] Comment on above: Performed By: #### T SH, LIVER, LIPID, BMP, T7 #### [facility] [address] [place] [address] Dr. Roberto Cabral MONO # 0.9 103/ul Critically high 0.3-0.8 [facility] Comment on above: Performed By: #### T SH, LIVER, LIPID, BMP, T7 #### [facility] [address] [place] [address] Dr. Roberto Cabral Monocytes/100 WBC (Bld) 10.0 % Normal 1.7-12.0 [facility] Comment on above: Performed By: #### T SH, LIVER, LIPID, BMP, T7 #### [facility] [address] [place] [address] Dr. Roberto Cabral NEUT # 5.7 103/ul Normal 1.4-6.5 [facility] Comment on above: Performed By: #### T SH, LIVER, LIPID, BMP, T7 #### [facility] [address] [place] [address] Dr. Roberto Cabral Neutrophils/100 WBC (Bld) 62.7 % Normal 43.0-75.0 [facility] Comment on above: Performed By: #### T SH, LIVER, LIPID, BMP, T7 #### [facility] [address] [place] [address] Dr. Roberto Cabral Platelet mean volume (Bld) [Entitic vol] 9.8 fL Normal 9.5-13.5 [facility] Comment on above: Performed By: #### T SH, LIVER, LIPID, BMP, T7 #### [facility] [address] [address] [address] Roberto Cabral PLT 290 103/ul Normal 150-450 [facility] Comment on above: Performed By: #### T SH, LIVER, LIPID, BMP, T7 #### [facility] [address] [address] [address] Roberto Cabral RBC 4.49 106/ul Critically low 4.70-6.10 [facility] Comment on above: Performed By: #### T SH, LIVER, LIPID, BMP, T7 #### [facility] [address] [place] [address] Dr. Roberto Cabral WBC 9.1 103/ul Normal 4.0-11.0 [facility] Comment on above: Performed By: #### T SH, LIVER, LIPID, BMP, T7 #### [facility] [address] [place] [address] Dr. Roberto Cabral FREE THYROXINE INDEX T7on FTI 2.73 Normal 1.30-4.50 [facility] Comment on above: Performed By: #### T SH, LIVER, LIPID, BMP, T7 #### [facility] [address] [place] [address] Dr. Roberto Cabral T3U 35.0 % Normal 33.0-40.0 [facility] Comment on above: Performed By: #### T SH, LIVER, LIPID, BMP, T7 #### [facility] [address] [place] [address] Dr. Roberto Cabral T4 [Mass/Vol] 7.80 ug/dL Normal 4.50-12.10 [facility] Comment on above: Performed By: #### T SH, LIVER, LIPID, BMP, T7 #### [facility] [address] [place] [address] Dr. Roberto Cabral GLYCOHEMOGLOBIN A1Con 2022 ADA RECOMMENDATION SEE BELOW Normal [facility] Comment on above: Result Comment: ADA RECOMMENDED LIMIT 4.0 - 6.0 ADA THERAPEUTIC TARGET < 7.0 ACTION SUGGESTED > 7.0 Performed By: #### A 1C #### [facility] [address] [place] [address] Dr. Roberto Cabral Glucose [Mass/Vol] 126 mg/dL Normal [facility] Comment on above: Performed By: #### A 1C #### [facility] [address] [place] [address] Dr. Roberto Cabral HbA1c (Bld) [Mass fraction] 6.0 % Normal 4.5-6.2 [facility] Comment on above: Performed By: #### A 1C #### [facility] [address] [place] [address] Dr. Roberto Cabral LIPID PROFILEon 10-14-2022 CHOL-HDL RATIO NORM SEE BELOW Normal [facility] Comment on above: Result Comment: 3.3 - 4.4 LOW RISK 4.4 - 7.1 AVERAGE RISK 7.1 - 11.0 MODERATE RISK >11.0 HIGH RISK Performed By: #### T SH, LIVER, LIPID, BMP, T7 #### [facility] [address] [place] [address] Dr. Roberto Cabral Cholesterol [Mass/Vol] 129 mg/dL Normal <=200 [facility] Comment on above: Performed By: #### T SH, LIVER, LIPID, BMP, T7 #### [facility] [address] [address] [address] Roberto Cabral Cholesterol in HDL [Mass/Vol] 45 mg/dL Normal 40-60 [facility] Comment on above: Performed By: #### T SH, LIVER, LIPID, BMP, T7 #### [facility] [address] [address] [address] Roberto Cabral Cholesterol in LDL [Mass/Vol] 62.4 mg/dL Normal [facility] Comment on above: Performed By: #### T SH, LIVER, LIPID, BMP, T7 #### [facility] [address] [address] [address] Roberto Cabral Cholesterol.total/ Cholesterol in HDL [Mass ratio] 2.9 {ratio} Normal [facility] Comment on above: Performed By: #### T SH, LIVER, LIPID, BMP, T7 #### [facility] [address] [place] [address] Dr. Roberto Cabral HDL NORMAL > or = 60 mg/dl - LO W CARDIOVASCULAR RISK <40 mg/dl - HIGH CARDIOVASCULAR RISK Normal [facility] Comment on above: Performed By: #### T SH, LIVER, LIPID, BMP, T7 #### [facility] [address] [address] [address] Roberto Cabral LDL CALC NORMAL SEE BELOW Normal [facility] Comment on above: Result Comment: <100 mg/dl OPTIMAL 100 - 129 mg/dl NEAR OR ABOVE OPTIMAL 130 - 159 mg/dl BORDERLINE HIGH 160 - 189 mg/dl HIGH >190 mg/dl VERY HIGH Performed By: #### T SH, LIVER, LIPID, BMP, T7 #### [facility] [address] [address] [address] Roberto Cabral Triglyceride [Mass/Vol] 108 mg/dL Normal <=150 [facility] Comment on above: Performed By: #### T SH, LIVER, LIPID, BMP, T7 #### [facility] [address] [place] [address] Dr. Roberto Cabral VLDL CALC 21.6 mg/dL Normal [facility] Comment on above: Performed By: #### T SH, LIVER, LIPID, BMP, T7 #### [facility] [address] [address] [address] Roberto Cabral LIVER PROFILEon 10-14-2022 Albumin [Mass/Vol] 3.6 g/dL Normal 3.4-5.0 [facility] Comment on above: Performed By: #### T SH, LIVER, LIPID, BMP, T7 #### [facility] [address] [address] [address] Roberto Cabral Albumin/Globulin [Mass ratio] 1.0 {ratio} Normal [facility] Comment on above: Performed By: #### T SH, LIVER, LIPID, BMP, T7 #### [facility] [address] [place] [address] Dr. Roberto Cabral ALP [Catalytic activity/Vol] 80 U/L Normal 46-116 [facility] Comment on above: Performed By: #### T SH, LIVER, LIPID, BMP, T7 #### [facility] [address] [place] [address] Dr. Roberto Cabral ALT [Catalytic activity/Vol] 21 U/L Normal 16-63 [facility] Comment on above: Performed By: #### T SH, LIVER, LIPID, BMP, T7 #### [facility] [address] [place] [address] Dr. Roberto Cabral AST [Catalytic activity/Vol] 14 U/L Critically low 15-37 [facility] Comment on above: Performed By: #### T SH, LIVER, LIPID, BMP, T7 #### [facility] [address] [place] [address] Dr. Roberto Cabral BILI, CONJUGATED 0.1 mg/dL Normal 0.0-0.2 [facility] Comment on above: Performed By: #### T SH, LIVER, LIPID, BMP, T7 #### [facility] [address] [place] [address] Dr. Roberto Cabral Bilirubin [Mass/Vol] 0.2 mg/dL Normal 0.2-1.0 [facility] Comment on above: Performed By: #### T SH, LIVER, LIPID, BMP, T7 #### [facility] [address] [place] [address] Dr. Roberto Cabral Globulin (S) [Mass/Vol] 3.6 g/dL Normal [facility] Comment on above: Performed By: #### T SH, LIVER, LIPID, BMP, T7 #### [facility] [address] [place] [address] Dr. Roberto Cabral Protein [Mass/Vol] 7.2 g/dL Normal 6.4-8.2 [facility] Comment on above: Performed By: #### T SH, LIVER, LIPID, BMP, T7 #### [facility] [address] [place] [address] Dr. Roberto Cabral PROF CHEM 8 (BAS METB)on Anion gap [Moles/Vol] 13.9 mmol/L Normal [facility] Comment on above: Performed By: #### T SH, LIVER, LIPID, BMP, T7 #### [facility] [address] [place] [address] Dr. Roberto Cabral Calcium [Mass/Vol] 9.2 mg/dL Normal 8.5-10.1 [facility] Comment on above: Performed By: #### T SH, LIVER, LIPID, BMP, T7 #### [facility] [address] [address] [address] Roberto Cabral Chloride [Moles/Vol] 110 mmol/L Critically high 98-107 [facility] Comment on above: Performed By: #### T SH, LIVER, LIPID, BMP, T7 #### [facility] [address] [address] [address] Roberto Cabral CO2 [Moles/Vol] 26.2 mmol/L Normal 21.0-32.0 [facility] Comment on above: Performed By: #### T SH, LIVER, LIPID, BMP, T7 #### [facility] [address] [place] [address] Dr. Roberto Cabral Creatinine [Mass/Vol] 1.02 mg/dL Normal 0.70-1.30 [facility] Comment on above: Performed By: #### T SH, LIVER, LIPID, BMP, T7 #### [facility] [address] [place] [address] Dr. Roberto Cabral EGFR-AF KITTITIAN >60 Normal >=60 [facility] Comment on above: Performed By: #### T SH, LIVER, LIPID, BMP, T7 #### [facility] [address] [place] [address] Dr. Roberto Cabral EGFR-NON AF KITTITIAN >60 Normal >=60 [facility] Comment on above: Performed By: #### T SH, LIVER, LIPID, BMP, T7 #### [facility] [address] [place] [address] Dr. Roberto Cabral Glucose [Mass/Vol] 120 mg/dL Critically high 74-106 [facility] Comment on above: Performed By: #### T SH, LIVER, LIPID, BMP, T7 #### [facility] [address] [place] [address] Dr. Roberto Cabral Potassium [Moles/Vol] 4.1 mmol/L Normal 3.5-5.1 [facility] Comment on above: Performed By: #### T SH, LIVER, LIPID, BMP, T7 #### [facility] [address] [address] [address] Roberto Cabral Sodium [Moles/Vol] 146 mmol/L Critically high 136-145 [facility] Comment on above: Performed By: #### T SH, LIVER, LIPID, BMP, T7 #### [facility] [address] [address] [address] Roberto Cabral Urea nitrogen [Mass/Vol] 26.0 mg/dL Critically high 7.0-18.0 [facility] Comment on above: Performed By: #### T SH, LIVER, LIPID, BMP, T7 #### [facility] [address] [place] [address] Dr. Roberto Cabral Urea nitrogen/Creatinin e [Mass ratio] 25.5 mg/mg Normal [facility] Comment on above: Performed By: #### T SH, LIVER, LIPID, BMP, T7 #### [facility] [address] [address] [address] Roberto Cabral TSHon 10-14-2022 TSH 1.674 uIU/mL Normal 0.358-3.740 [facility] Comment on above: Performed By: #### T SH, LIVER, LIPID, BMP, T7 #### [facility] [address] [place] [address] Dr. Roberto Cabral [facility]01 SARS-CoV-2 (COVID-19) RNA JOSÉ+probe Ql (Unsp spec) Detected Critically abnormal NOT DETECTED [facility] Comment on above: Result Comment: This test is not yet approved or cleared by the [place] FDA. When there are no FDA-approved or cleared tests available, and other criteria are met, FDA can make tests available under an emergency access mechanism called an Emergency Use Authorization (EUA). The EUA for this test is supported by the [employer] of Health and Human Service's (HHS's) declaration [...] T SH, LIVER, LIPID, BMP, T7 #### [facility] [address] [address] [address] Roberto Cabral Pre-Certification Formon Pre-Certification Form [id number] Normal [facility] PROF 14(COMP METB)on 022 Albumin [Mass/Vol] 3.3 g/dL Critically low 3.4-5.0 [facility] Comment on above: Performed By: #### T SH, LIVER, LIPID, BMP, T7 #### [facility] [address] [place] [address] Dr. Roberto Cabral Albumin/Globulin [Mass ratio] 1.0 {ratio} Normal [facility] Comment on above: Performed By: #### T SH, LIVER, LIPID, BMP, T7 #### [facility] [address] [address] [address] Roberto Cabral ALP [Catalytic activity/Vol] 95 U/L Normal 46-116 [facility] Comment on above: Performed By: #### T SH, LIVER, LIPID, BMP, T7 #### [facility] [address] [address] [address] Roberto Cabral ALT [Catalytic activity/Vol] 22 U/L Normal 16-63 [facility] Comment on above: Performed By: #### T SH, LIVER, LIPID, BMP, T7 #### [facility] [address] [address] [address] Roberto Cabral Anion gap [Moles/Vol] 14.0 mmol/L Normal [facility] Comment on above: Performed By: #### T SH, LIVER, LIPID, BMP, T7 #### [facility] [address] [address] [address] Roberto Cabral AST [Catalytic activity/Vol] 12 U/L Critically low 15-37 [facility] Comment on above: Performed By: #### T SH, LIVER, LIPID, BMP, T7 #### [facility] [address] [address] [address] Roberto Cabral Bilirubin [Mass/Vol] 0.2 mg/dL Normal 0.2-1.0 [facility] Comment on above: Performed By: #### T SH, LIVER, LIPID, BMP, T7 #### [facility] [address] [place] [address] Dr. Roberto Cabral Calcium [Mass/Vol] 8.6 mg/dL Normal 8.5-10.1 [facility] Comment on above: Performed By: #### T SH, LIVER, LIPID, BMP, T7 #### [facility] [address] [place] [address] Dr. Roberto Carbal Chloride [Moles/Vol] 110 mmol/L Critically high 98-107 [facility] Comment on above: Performed By: #### T SH, LIVER, LIPID, BMP, T7 #### [facility] [address] [place] [address] Dr. Roberto Cabral CO2 [Moles/Vol] 22.6 mmol/L Normal 21.0-32.0 [facility] Comment on above: Performed By: #### T SH, LIVER, LIPID, BMP, T7 #### [facility] [address] [place] [address] Dr. Roberto Cabral Creatinine [Mass/Vol] 1.05 mg/dL Normal 0.70-1.30 [facility] Comment on above: Performed By: #### T SH, LIVER, LIPID, BMP, T7 #### [facility] [address] [place] [address] Dr. Roberto Cabral EGFR-AF KITTITIAN >60 Normal >=60 [facility] Comment on above: Performed By: #### T SH, LIVER, LIPID, BMP, T7 #### [facility] [address] [place] [address] Dr. Roberto Cabral EGFR-NON AF KITTITIAN >60 Normal >=60 [facility] Comment on above: Performed By: #### T SH, LIVER, LIPID, BMP, T7 #### [facility] [address] [address] [address] Roberto Cabral Globulin (S) [Mass/Vol] 3.2 g/dL Normal [facility] Comment on above: Performed By: #### T SH, LIVER, LIPID, BMP, T7 #### [facility] [address] [place] [address] Dr. Roberto Cabral Glucose [Mass/Vol] 172 mg/dL Critically high 74-106 [facility] Comment on above: Performed By: #### T SH, LIVER, LIPID, BMP, T7 #### [facility] [address] [place] [address] Dr. Roberto Cabral Potassium [Moles/Vol] 4.6 mmol/L Normal 3.5-5.1 [facility] Comment on above: Performed By: #### T SH, LIVER, LIPID, BMP, T7 #### [facility] [address] [place] [address] Dr. Roberto Cabral Protein [Mass/Vol] 6.5 g/dL Normal 6.4-8.2 [facility] Comment on above: Performed By: #### T SH, LIVER, LIPID, BMP, T7 #### [facility] [address] [place] [address] Dr. Roberto Cabral Sodium [Moles/Vol] 142 mmol/L Normal 136-145 [facility] Comment on above: Performed By: #### T SH, LIVER, LIPID, BMP, T7 #### [facility] [address] [place] [address] Dr. Roberto Cabral Urea nitrogen [Mass/Vol] 14.0 mg/dL Normal 7.0-18.0 [facility] Comment on above: Performed By: #### T SH, LIVER, LIPID, BMP, T7 #### [facility] [address] [place] [address] Dr. Roberto Cabral Urea nitrogen/Creatinin e [Mass ratio] 13.3 mg/mg Normal [facility] Comment on above: Performed By: #### T SH, LIVER, LIPID, BMP, T7 #### [facility] [address] [place] [address] Dr. Roberto Cabral CBC AUTO DIFFon 12-11-2021 BASO # 0.1 103/ul Normal 0.0-0.1 [facility] Comment on above: Performed By: #### T SH, LIVER, LIPID, BMP, T7 #### [facility] [address] [place] [address] Dr. Roberto Cabral Basophils/100 WBC (Bld) 0.3 % Normal 0.2-2.0 [facility] Comment on above: Performed By: #### T SH, LIVER, LIPID, BMP, T7 #### [facility] [address] [place] [address] Dr. Roberto Cabral EO # 0.7 103/ul Normal 0.0-0.7 [facility] Comment on above: Performed By: #### T SH, LIVER, LIPID, BMP, T7 #### [facility] [address] [place] [address] Dr. Roberto Cabral Eosinophils/100 WBC (Bld) 4.5 % Normal 0.9-7.0 [facility] Comment on above: Performed By: #### T SH, LIVER, LIPID, BMP, T7 #### [facility] [address] [place] [address] Dr. Roberto Cabral Erythrocyte distribution width (RBC) [Ratio] 15.7 % Critically high 11.0-15.0 [facility] Comment on above: Performed By: #### T SH, LIVER, LIPID, BMP, T7 #### [facility] [address] [place] [address] Dr. Roberto Cabral Hematocrit (Bld) [Volume fraction] 33.3 % Critically low 42.0-54.0 [facility] Comment on above: Performed By: #### T SH, LIVER, LIPID, BMP, T7 #### [facility] [address] [place] [address] Dr. Roberto Cabral Hemoglobin (Bld) [Mass/Vol] 10.3 g/dL Critically low 14.0-18.0 [facility] Comment on above: Performed By: #### T SH, LIVER, LIPID, BMP, T7 #### [facility] [address] [address] [address] Roberto Cabral IG # 0.08 10e3/ul Critically high 0.00-0.03 [facility] Comment on above: Performed By: #### T SH, LIVER, LIPID, BMP, T7 #### [facility] [address] [address] [address] Roberto Cabral IG % 0.5 % Normal 0.0-0.5 [facility] Comment on above: Performed By: #### T SH, LIVER, LIPID, BMP, T7 #### [facility] [address] [place] [address] Dr. Roberto Cabral LYMPH # 1.3 103/ul Normal 1.2-3.8 [facility] Comment on above: Performed By: #### T SH, LIVER, LIPID, BMP, T7 #### [facility] [address] [place] [address] Dr. Roberto Cabral Lymphocytes/100 WBC (Bld) 8.4 % Critically low 20.5-60.0 [facility] Comment on above: Performed By: #### T SH, LIVER, LIPID, BMP, T7 #### [facility] [address] [address] [address] Roberto Cabral MANUAL DIFF REQ NO Normal [facility] Comment on above: Performed By: #### T SH, LIVER, LIPID, BMP, T7 #### [facility] [address] [place] [address] Dr. Roberto Cabral MCH (RBC) [Entitic mass] 27.9 pg Normal 25.9-34.0 [facility] Comment on above: Performed By: #### T SH, LIVER, LIPID, BMP, T7 #### [facility] [address] [address] [address] Roberto Cabral MCHC (RBC) [Mass/Vol] 30.9 g/dL Normal 29.9-35.2 [facility] Comment on above: Performed By: #### T SH, LIVER, LIPID, BMP, T7 #### [facility] [address] [place] [address] Dr. Roberto Cabral MCV (RBC) [Entitic vol] 90.2 fL Normal 80.0-94.0 [facility] Comment on above: Performed By: #### T SH, LIVER, LIPID, BMP, T7 #### [facility] [address] [address] [address] Roberto Cabral MONO # 1.4 103/ul Critically high 0.3-0.8 [facility] Comment on above: Performed By: #### T SH, LIVER, LIPID, BMP, T7 #### [facility] [address] [address] [address] Roberto Cabral Monocytes/100 WBC (Bld) 8.9 % Normal 1.7-12.0 [facility] Comment on above: Performed By: #### T SH, LIVER, LIPID, BMP, T7 #### [facility] [address] [place] [address] Dr. Roberto Cabral NEUT # 12.0 103/ul Critically high 1.4-6.5 [facility] Comment on above: Performed By: #### T SH, LIVER, LIPID, BMP, T7 #### [facility] [address] [place] [address] Dr. Roberto Cabral Neutrophils/100 WBC (Bld) 77.4 % Critically high 43.0-75.0 [facility] Comment on above: Performed By: #### T SH, LIVER, LIPID, BMP, T7 #### [facility] Laboratory [address] [place] [address] Dr. Roberto Cabral Platelet mean volume (Bld) [Entitic vol] 10.3 fL Normal 9.5-13.5 [facility] Comment on above: Performed By: #### T SH, LIVER, LIPID, BMP, T7 #### [facility] [address] [place] [address] Dr. Roberto Cabral PLT 286 103/ul Normal 150-450 [facility] Comment on above: Performed By: #### T SH, LIVER, LIPID, BMP, T7 #### [facility] [address] [place] [address] Dr. Roberto Cabral RBC 3.69 106/ul Critically low 4.70-6.10 [facility] Comment on above: Performed By: #### T SH, LIVER, LIPID, BMP, T7 #### [facility] [address] [address] [address] Roberto Cabral WBC 15.4 103/ul Critically high 4.0-11.0 [facility] Comment on above: Performed By: #### T SH, LIVER, LIPID, BMP, T7 #### [facility] [address] [address] [address] Roberto Cabral POINT OF CARE GLUCOSEon 12-01 Glucose [Mass/Vol] 122 mg/dL Critically high 74-106 [facility] Comment on above: Performed By: #### T SH, LIVER, LIPID, BMP, T7 #### [facility] [address] [address] [address] Roberto Cabral PROF 14(COMP METB)on 022 Albumin [Mass/Vol] 2.8 g/dL Critically low 3.4-5.0 [facility] Comment on above: Performed By: #### T SH, LIVER, LIPID, BMP, T7 #### [facility] [address] [place] [address] Dr. Roberto Cabral Albumin/Globulin [Mass ratio] 1.0 {ratio} Normal [facility] Comment on above: Performed By: #### T SH, LIVER, LIPID, BMP, T7 #### [facility] [address] [address] [address] Roberto Cabral ALP [Catalytic activity/Vol] 66 U/L Normal 46-116 [facility] Comment on above: Performed By: #### T SH, LIVER, LIPID, BMP, T7 #### [facility] [address] [address] [address] Roberto Cabral ALT [Catalytic activity/Vol] 15 U/L Critically low 16-63 [facility] Comment on above: Performed By: #### T SH, LIVER, LIPID, BMP, T7 #### [facility] [address] [address] [address] Roberto Cabral Anion gap [Moles/Vol] 15.2 mmol/L Normal [facility] Comment on above: Performed By: #### T SH, LIVER, LIPID, BMP, T7 #### [facility] [address] [address] [address] Roberto Cabral AST [Catalytic activity/Vol] 15 U/L Normal 15-37 [facility] Comment on above: Performed By: #### T SH, LIVER, LIPID, BMP, T7 #### [facility] [address] [address] [address] Roberto Cabral Bilirubin [Mass/Vol] 0.2 mg/dL Normal 0.2-1.0 [facility] Comment on above: Performed By: #### T SH, LIVER, LIPID, BMP, T7 #### [facility] [address] [place] [address] Dr. Roberto aCbral Calcium [Mass/Vol] 8.4 mg/dL Critically low 8.5-10.1 [facility] Comment on above: Performed By: #### T SH, LIVER, LIPID, BMP, T7 #### [facility] [address] [address] [address] Roberto Cabral Chloride [Moles/Vol] 114 mmol/L Critically high 98-107 [facility] Comment on above: Performed By: #### T SH, LIVER, LIPID, BMP, T7 #### [facility] [address] [place] [address] Dr. Roberto Cabral CO2 [Moles/Vol] 17.2 mmol/L Critically low 21.0-32.0 [facility] Comment on above: Performed By: #### T SH, LIVER, LIPID, BMP, T7 #### [facility] [address] [place] [address] Dr. Roberto Cabral Creatinine [Mass/Vol] 1.84 mg/dL Critically high 0.70-1.30 [facility] Comment on above: Performed By: #### T SH, LIVER, LIPID, BMP, T7 #### [facility] [address] [place] [address] Dr. Roberto Cabral EGFR-AF KITTITIAN 44 mL/min/1.73m2 Critically low >=60 [facility] Comment on above: Performed By: #### T SH, LIVER, LIPID, BMP, T7 #### [facility] [address] [address] [address] Roberto Cabral EGFR-NON AF KITTITIAN 36 mL/min/1.73m2 Critically low >=60 [facility] Comment on above: Performed By: #### T SH, LIVER, LIPID, BMP, T7 #### [facility] [address] [place] [address] Dr. Roberto Cabral Globulin (S) [Mass/Vol] 2.9 g/dL Normal [facility] Comment on above: Performed By: #### T SH, LIVER, LIPID, BMP, T7 #### [facility] [address] [place] [address] Dr. Roberto Cabral Glucose [Mass/Vol] 120 mg/dL Critically high 74-106 [facility] Comment on above: Performed By: #### T SH, LIVER, LIPID, BMP, T7 #### [facility] [address] [place] [address] Dr. Roberto Cabral Potassium [Moles/Vol] 5.4 mmol/L Critically high 3.5-5.1 [facility] Comment on above: Performed By: #### T SH, LIVER, LIPID, BMP, T7 #### [facility] [address] [place] [address] Dr. Roberto Cabral Protein [Mass/Vol] 5.7 g/dL Critically low 6.4-8.2 [facility] Comment on above: Performed By: #### T SH, LIVER, LIPID, BMP, T7 #### [facility] [address] [place] [address] Dr. Roberto Cabral Sodium [Moles/Vol] 141 mmol/L Normal 136-145 [facility] Comment on above: Performed By: #### T SH, LIVER, LIPID, BMP, T7 #### [facility] [address] [place] [address] Dr. Roberto Cabral Urea nitrogen [Mass/Vol] 56.0 mg/dL Critically high 7.0-18.0 [facility] Comment on above: Performed By: #### T SH, LIVER, LIPID, BMP, T7 #### [facility] [address] [place] [address] Dr. Roberto Cabral Urea nitrogen/Creatinin e [Mass ratio] 30.4 mg/mg Normal [facility] Comment on above: Performed By: #### T SH, LIVER, LIPID, BMP, T7 #### [facility] [address] [place] [address] Dr. Roberto Cabral PROF CHEM 8 (BAS METB)on Anion gap [Moles/Vol] 13.3 mmol/L Normal [facility] Comment on above: Performed By: #### T SH, LIVER, LIPID, BMP, T7 #### [facility] [address] [place] [address] Dr. Roberto Cabral Calcium [Mass/Vol] 8.3 mg/dL Critically low 8.5-10.1 [facility] Comment on above: Performed By: #### T SH, LIVER, LIPID, BMP, T7 #### [facility] [address] [place] [address] Dr. Roberto Cabral Chloride [Moles/Vol] 113 mmol/L Critically high 98-107 [facility] Comment on above: Performed By: #### T SH, LIVER, LIPID, BMP, T7 #### [facility] [address] [place] [address] Dr. Roberto Cabral CO2 [Moles/Vol] 19.4 mmol/L Critically low 21.0-32.0 [facility] Comment on above: Performed By: #### T SH, LIVER, LIPID, BMP, T7 #### [facility] [address] [place] [address] Dr. Roberto Cabral Creatinine [Mass/Vol] 1.49 mg/dL Critically high 0.70-1.30 [facility] Comment on above: Performed By: #### T SH, LIVER, LIPID, BMP, T7 #### [facility] [address] [place] [address] Dr. Roberto Cabral EGFR-AF KITTITIAN 56 mL/min/1.73m2 Critically low >=60 [facility] Comment on above: Performed By: #### T SH, LIVER, LIPID, BMP, T7 #### [facility] [address] [address] [address] Roberto Cabral EGFR-NON AF KITTITIAN 46 mL/min/1.73m2 Critically low >=60 [facility] Comment on above: Performed By: #### T SH, LIVER, LIPID, BMP, T7 #### [facility] [address] [place] [address] Dr. Roberto Cabral Glucose [Mass/Vol] 142 mg/dL Critically high 74-106 [facility] Comment on above: Performed By: #### T SH, LIVER, LIPID, BMP, T7 #### [facility] [address] [place] [address] Dr. Roberto Cabral Potassium [Moles/Vol] 5.7 mmol/L Critically high 3.5-5.1 [facility] Comment on above: Performed By: #### T SH, LIVER, LIPID, BMP, T7 #### [facility] [address] [place] [address] Dr. Roberto Cabral Sodium [Moles/Vol] 140 mmol/L Normal 136-145 [facility] Comment on above: Performed By: #### T SH, LIVER, LIPID, BMP, T7 #### [facility] [address] [place] [address] Dr. Roberto Cabral Urea nitrogen [Mass/Vol] 46.0 mg/dL Critically high 7.0-18.0 [facility] Comment on above: Performed By: #### T SH, LIVER, LIPID, BMP, T7 #### [facility] [address] [place] [address] Dr. Roberto Cabral Urea nitrogen/Creatinin e [Mass ratio] 30.9 mg/mg Normal [facility] Comment on above: Performed By: #### T SH, LIVER, LIPID, BMP, T7 #### [facility] [address] [place] [address] Dr. Roberto Cabral BNPon 12-10-2021 Natriuretic peptide B (Bld) [Mass/Vol] 167.0 pg/mL Normal <=1,800.0 [facility] Comment on above: Performed By: #### T SH, LIVER, LIPID, BMP, T7 #### [facility] [address] [place] [address] Dr. Roberto Cabral CBC AUTO DIFFon 12-10-2021 BASO # 0.1 103/ul Normal 0.0-0.1 [facility] Comment on above: Performed By: #### T SH, LIVER, LIPID, BMP, T7 #### [facility] [address] [place] [address] Dr. Roberto Cabral Basophils/100 WBC (Bld) 0.3 % Normal 0.2-2.0 [facility] Comment on above: Performed By: #### T SH, LIVER, LIPID, BMP, T7 #### [facility] [address] [place] [address] Dr. Roberto Cabral EO # 0.4 103/ul Normal 0.0-0.7 [facility] Comment on above: Performed By: #### T SH, LIVER, LIPID, BMP, T7 #### [facility] [address] [place] [address] Dr. Roberto Cabral Eosinophils/100 WBC (Bld) 2.6 % Normal 0.9-7.0 [facility] Comment on above: Performed By: #### T SH, LIVER, LIPID, BMP, T7 #### [facility] [address] [place] [address] Dr. Roberto Cabral Erythrocyte distribution width (RBC) [Ratio] 15.7 % Critically high 11.0-15.0 [facility] Comment on above: Performed By: #### T SH, LIVER, LIPID, BMP, T7 #### [facility] [address] [place] [address] Dr. Roberto Cabral Hematocrit (Bld) [Volume fraction] 36.1 % Critically low 42.0-54.0 [facility] Comment on above: Performed By: #### T SH, LIVER, LIPID, BMP, T7 #### [facility] [address] [place] [address] Dr. Roberto Cabral Hemoglobin (Bld) [Mass/Vol] 11.5 g/dL Critically low 14.0-18.0 [facility] Comment on above: Performed By: #### T SH, LIVER, LIPID, BMP, T7 #### [facility] [address] [place] [address] Dr. Roberto Cabral IG # 0.07 10e3/ul Critically high 0.00-0.03 [facility] Comment on above: Performed By: #### T SH, LIVER, LIPID, BMP, T7 #### [facility] [address] [place] [address] Dr. Roberto Cabral IG % 0.4 % Normal 0.0-0.5 [facility] Comment on above: Performed By: #### T SH, LIVER, LIPID, BMP, T7 #### [facility] [address] [place] [address] Dr. Roberto Cabral LYMPH # 1.4 103/ul Normal 1.2-3.8 [facility] Comment on above: Performed By: #### T SH, LIVER, LIPID, BMP, T7 #### [facility] [address] [place] [address] Dr. Roberto Cabral Lymphocytes/100 WBC (Bld) 9.0 % Critically low 20.5-60.0 [facility] Comment on above: Performed By: #### T SH, LIVER, LIPID, BMP, T7 #### [facility] [address] [place] [address] Dr. Roberto Cabral MANUAL DIFF REQ NO Normal [facility] Comment on above: Performed By: #### T SH, LIVER, LIPID, BMP, T7 #### [facility] [address] [place] [address] Dr. Roberto Cabral MCH (RBC) [Entitic mass] 28.1 pg Normal 25.9-34.0 [facility] Comment on above: Performed By: #### T SH, LIVER, LIPID, BMP, T7 #### [facility] [address] [place] [address] Dr. Roberto Cabral MCHC (RBC) [Mass/Vol] 31.9 g/dL Normal 29.9-35.2 [facility] Comment on above: Performed By: #### T SH, LIVER, LIPID, BMP, T7 #### [facility] [address] [place] [address] Dr. Roberto Cabral MCV (RBC) [Entitic vol] 88.3 fL Normal 80.0-94.0 [facility] Comment on above: Performed By: #### T SH, LIVER, LIPID, BMP, T7 #### [facility] [address] [place] [address] Dr. Roberto Cabral MONO # 1.4 103/ul Critically high 0.3-0.8 [facility] Comment on above: Performed By: #### T SH, LIVER, LIPID, BMP, T7 #### [facility] [address] [place] [address] Dr. Roberto Cabral Monocytes/100 WBC (Bld) 8.8 % Normal 1.7-12.0 [facility] Comment on above: Performed By: #### T SH, LIVER, LIPID, BMP, T7 #### [facility] [address] [place] [address] Dr. Roberto Cabral NEUT # 12.3 103/ul Critically high 1.4-6.5 [facility] Comment on above: Performed By: #### T SH, LIVER, LIPID, BMP, T7 #### [facility] [address] [place] [address] Dr. Roberto Cabral Neutrophils/100 WBC (Bld) 78.9 % Critically high 43.0-75.0 [facility] Comment on above: Performed By: #### T SH, LIVER, LIPID, BMP, T7 #### [facility] [address] [place] [address] Dr. Roberto Cabral Platelet mean volume (Bld) [Entitic vol] 10.5 fL Normal 9.5-13.5 [facility] Comment on above: Performed By: #### T SH, LIVER, LIPID, BMP, T7 #### [facility] [address] [place] [address] Dr. Roberto Cabral PLT 316 103/ul Normal 150-450 [facility] Comment on above: Performed By: #### T SH, LIVER, LIPID, BMP, T7 #### [facility] [address] [place] [address] Dr. Roberto Cabral RBC 4.09 106/ul Critically low 4.70-6.10 [facility] Comment on above: Performed By: #### T SH, LIVER, LIPID, BMP, T7 #### [facility] [address] [place] [address] Dr. Roberto Cabral WBC 15.6 103/ul Critically high 4.0-11.0 [facility] Comment on above: Performed By: #### T SH, LIVER, LIPID, BMP, T7 #### [facility] [address] [place] [address] Dr. Roberto Cabral CULTURE URINEon 12-10-2021 CULTURE URINE Culture Observations : No growth Normal [facility] Comment on above: Performed By: #### T SH, LIVER, LIPID, BMP, T7 #### [facility] [address] [place] [address] Dr. Roberto Cabral ER URINE PROFILEon 2 Bilirubin Ql (U) Negative Normal NEGATIVE [facility] Comment on above: Performed By: #### E RUR #### [facility] [address] [place] [address] Dr. Roberto Cabral Clarity (U) CLEAR Normal CLEAR [facility] Comment on above: Performed By: #### E RUR #### [facility] [address] [place] [address] Dr. Roberto Cabral Color (U) LT. YELLOW Normal YELLOW [facility] Comment on above: Performed By: #### E RUR #### [facility] [address] [place] [address] Dr. Roberto Cabral ERUAHD A micrscopic examina tion will be performed if indicated. Normal [facility] Comment on above: Performed By: #### E RUR #### [facility] [address] [place] [address] Dr. Roberto Cabral Glucose Ql (U) Negative Normal NEGATIVE [facility] Comment on above: Performed By: #### E RUR #### [facility] [address] [place] [address] Dr. Roberto Cabral Hemoglobin Ql (U) Negative Normal NEGATIVE [facility] Comment on above: Performed By: #### E RUR #### [facility] [address] [place] [address] Dr. Roberto Cabral Ketones Ql (U) Negative Normal NEGATIVE [facility] Comment on above: Performed By: #### E RUR #### [facility] [address] [place] [address] Dr. Roberto Cabral LEUKOCYTES Negative Normal NEGATIVE [facility] Comment on above: Performed By: #### E RUR #### [facility] [address] [place] [address] Dr. Roberto Cabral Nitrite Ql (U) Negative Normal NEGATIVE [facility] Comment on above: Performed By: #### E RUR #### [facility] [address] [place] [address] Dr. Roberto Cabral pH (U) 5.0 [pH] Normal 5-9 [facility] Comment on above: Performed By: #### E RUR #### [facility] [address] [place] [address] Dr. Roberto Cabral SPEC GRAVITY 1.015 Normal 1.005-<=1.02 5 [facility] Comment on above: Performed By: #### E RUR #### [facility] [address] [place] [address] Dr. Roberto Cabral UA PROTEIN Negative Normal NEGATIVE/ TRACE [facility] Comment on above: Performed By: #### E RUR #### [facility] [address] [place] [address] Dr. Roberto Cabral UR MICRO IND NOT INDICATED Normal [facility] Comment on above: Performed By: #### E RUR #### [facility] [address] [place] [address] Dr. Roberto Cabral Urobilinogen Qn (U) 0.2 {Noman'U}/dL Normal 0.2 - 1.0 [facility] Comment on above: Performed By: #### E RUR #### [facility] [address] [place] [address] Dr. Roberto Cabral GI PANEL (PCR)on 12-10-2021 Adenovirus F 40/41 Not detected Normal NOT DETECTED [facility] Comment on above: Performed By: #### T SH, LIVER, LIPID, BMP, T7 #### [facility] [address] [place] [address] Dr. Roberto Cabral Astrovirus Not detected Normal NOT DETECTED [facility] Comment on above: Performed By: #### T SH, LIVER, LIPID, BMP, T7 #### [facility] [address] [address] [address] Roberto Cabral C. Diff toxin A/B Not detected Normal NOT DETECTED [facility] Comment on above: Performed By: #### T SH, LIVER, LIPID, BMP, T7 #### [facility] [address] [place] [address] Dr. Roberto Cabral Campylobacter Not detected Normal NOT DETECTED [facility] Comment on above: Performed By: #### T SH, LIVER, LIPID, BMP, T7 #### [facility] [address] [place] [address] Dr. Roberto Cabral Cryptosporidium Not detected Normal NOT DETECTED [facility] Comment on above: Performed By: #### T SH, LIVER, LIPID, BMP, T7 #### [facility] [address] [place] [address] Dr. Roberto Cabral Cyclos. Cayetanensis Not detected Normal NOT DETECTED [facility] Comment on above: Performed By: #### T SH, LIVER, LIPID, BMP, T7 #### [facility] [address] [place] [address] Dr. Roberto Cabral E. Coli O157 Not Applicable Normal Not Applicable [facility] Comment on above: Performed By: #### T SH, LIVER, LIPID, BMP, T7 #### [facility] [address] [place] [address] Dr. Roberto Cabral E. histolytica Not detected Normal NOT DETECTED [facility] Comment on above: Performed By: #### T SH, LIVER, LIPID, BMP, T7 #### [facility] [address] [address] [address] Roberto Cabral EAEC Not detected Normal NOT DETECTED [facility] Comment on above: Performed By: #### T SH, LIVER, LIPID, BMP, T7 #### [facility] [address] [address] [address] Roberot Cabral EIEC Not detected Normal NOT DETECTED [facility] Comment on above: Performed By: #### T SH, LIVER, LIPID, BMP, T7 #### [facility] [address] [address] [address] Roberto Cabral EPEC Not detected Normal NOT DETECTED [facility] Comment on above: Performed By: #### T SH, LIVER, LIPID, BMP, T7 #### [facility] [address] [address] [address] Roberto Cabral ETEC Not detected Normal NOT DETECTED [facility] Comment on above: Performed By: #### T SH, LIVER, LIPID, BMP, T7 #### [facility] [address] [address] [address] Roberto Fong Lamblia Not detected Normal NOT DETECTED [facility] Comment on above: Performed By: #### T SH, LIVER, LIPID, BMP, T7 #### [facility] [address] [place] [address] Dr. Roberto CARDENAS CONTROLS PASSED Normal [facility] Comment on above: Performed By: #### T SH, LIVER, LIPID, BMP, T7 #### [facility] [address] [address] [address] Roberto MAXWELL JAIRO HEADER GI PANEL BACTERIA Normal [facility] Comment on above: Performed By: #### T SH, LIVER, LIPID, BMP, T7 #### [facility] [address] [address] [address] Roberto IVEY ECOLI GI PANEL DIARRHEAGEN IC E.COLI / SHIGELLA Normal [facility] Comment on above: Performed By: #### T SH, LIVER, LIPID, BMP, T7 #### [facility] [address] [address] [address] Roberto IVEY INFO SEE BELOW Normal [facility] Comment on above: Result Comment: EAEC - Enteroaggregative E. Coli EPEC- Enteropathogenic E. Coli ETEC- Enterotoxigenic E. Coli lt/st STEC- Shigella-like toxin-producing E. Coli stx1/stx2 EIEC- Shigella/Enteroinvasive E. Coli Performed By: #### T SH, LIVER, LIPID, BMP, T7 #### [facility] [address] [address] [address] Roberto IVEY PARASITES GI PANEL PARASITES Normal [facility] Comment on above: Performed By: #### T SH, LIVER, LIPID, BMP, T7 #### [facility] [address] [address] [address] Roberto IVEY VIRUS GI PANEL VIRUSES Normal [facility] Comment on above: Performed By: #### T SH, LIVER, LIPID, BMP, T7 #### [facility] [address] [address] [address] Roberto Cabral Norovirus GI/GII Not detected Normal NOT DETECTED [facility] Comment on above: Performed By: #### T SH, LIVER, LIPID, BMP, T7 #### [facility] [address] [address] [address] Roberto Cabral P. Shigelloides Not detected Normal NOT DETECTED [facility] Comment on above: Performed By: #### T SH, LIVER, LIPID, BMP, T7 #### [facility] [address] [address] [address] Roberto Cabral Rotavirus A Not detected Normal NOT DETECTED [facility] Comment on above: Performed By: #### T SH, LIVER, LIPID, BMP, T7 #### [facility] [address] [address] [address] Roberto Cabral Salmonella Not detected Normal NOT DETECTED [facility] Comment on above: Performed By: #### T SH, LIVER, LIPID, BMP, T7 #### [facility] [address] [address] [address] Roberto Cabral Sapovirus Detected Abnormal NOT DETECTED [facility] Comment on above: Performed By: #### T SH, LIVER, LIPID, BMP, T7 #### [facility] [address] [address] [address] Roberto Cabral STEC Not detected Normal NOT DETECTED [facility] Comment on above: Performed By: #### T SH, LIVER, LIPID, BMP, T7 #### [facility] [address] [place] [address] Dr. Roberto Cabral Vibrio Not detected Normal NOT DETECTED [facility] Comment on above: Performed By: #### T SH, LIVER, LIPID, BMP, T7 #### [facility] [address] [place] [address] Dr. Roberto Cabral Vibrio Cholera Not detected Normal NOT DETECTED [facility] Comment on above: Performed By: #### T SH, LIVER, LIPID, BMP, T7 #### [facility] [address] [place] [address] Dr. Roberto Cabral Y. Enterocolitica Not detected Normal NOT DETECTED [facility] Comment on above: Performed By: #### T SH, LIVER, LIPID, BMP, T7 #### [facility] [address] [place] [address] Dr. Roberto Cabral POINT OF CARE GLUCOSEon 12-01 Glucose [Mass/Vol] 73 mg/dL Critically low 74-106 [facility] Comment on above: Performed By: #### P OCGLUC #### [facility] [address] [place] [address] Dr. Roberto Cabral Glucose [Mass/Vol] 69 mg/dL Critically low 74-106 [facility] Comment on above: Performed By: #### T SH, LIVER, LIPID, BMP, T7 #### [facility] [address] [place] [address] Dr. Roberto Cabral Glucose [Mass/Vol] 99 mg/dL Normal 74-106 [facility] Comment on above: Performed By: #### P OCGLUC #### [facility] [address] [place] [address] Dr. Roberto Cabral Glucose [Mass/Vol] 67 mg/dL Critically low 74-106 [facility] Comment on above: Performed By: #### T SH, LIVER, LIPID, BMP, T7 #### [facility] [address] [place] [address] Dr. Roberto Cabral Glucose [Mass/Vol] 74 mg/dL Normal 74-106 [facility] Comment on above: Performed By: #### P OCGLUC #### [facility] [address] [place] [address] Dr. Roberto Cabral Glucose [Mass/Vol] 55 mg/dL Critically low 74-106 [facility] Comment on above: Performed By: #### T SH, LIVER, LIPID, BMP, T7 #### [facility] [facility] [address] [place] [address] Dr. Roberto Cabral PROF 14(COMP METB)on 12-10- 022 Albumin [Mass/Vol] 3.1 g/dL Critically low 3.4-5.0 [facility] Comment on above: Performed By: #### T SH, LIVER, LIPID, BMP, T7 #### [facility] [address] [place] [address] Dr. Roberto Cabral Albumin/Globulin [Mass ratio] 0.9 {ratio} Normal [facility] Comment on above: Performed By: #### T SH, LIVER, LIPID, BMP, T7 #### [facility] [address] [place] [address] Dr. Roberto Cabral ALP [Catalytic activity/Vol] 73 U/L Normal 46-116 [facility] Comment on above: Performed By: #### T SH, LIVER, LIPID, BMP, T7 #### [facility] [address] [place] [address] Dr. Roberto Cabral ALT [Catalytic activity/Vol] 17 U/L Normal 16-63 [facility] Comment on above: Performed By: #### T SH, LIVER, LIPID, BMP, T7 #### [facility] [address] [place] [address] Dr. Roberto Cabral Anion gap [Moles/Vol] 17.7 mmol/L Normal [facility] Comment on above: Performed By: #### T SH, LIVER, LIPID, BMP, T7 #### [facility] [address] [place] [address] Dr. Roberto Cabral AST [Catalytic activity/Vol] 13 U/L Critically low 15-37 [facility] Comment on above: Performed By: #### T SH, LIVER, LIPID, BMP, T7 #### [facility] [address] [place] [address] Dr. Roberto Cabral Bilirubin [Mass/Vol] 0.2 mg/dL Normal 0.2-1.0 [facility] Comment on above: Performed By: #### T SH, LIVER, LIPID, BMP, T7 #### [facility] [address] [place] [address] Dr. Roberto Cabral Calcium [Mass/Vol] 8.7 mg/dL Normal 8.5-10.1 [facility] Comment on above: Performed By: #### T SH, LIVER, LIPID, BMP, T7 #### [facility] [address] [place] [address] Dr. Roberto Cabral Chloride [Moles/Vol] 110 mmol/L Critically high 98-107 [facility] Comment on above: Performed By: #### T SH, LIVER, LIPID, BMP, T7 #### [facility] [address] [place] [address] Dr. Roberto Cabral CO2 [Moles/Vol] 16.0 mmol/L Critically low 21.0-32.0 [facility] Comment on above: Performed By: #### T SH, LIVER, LIPID, BMP, T7 #### [facility] [address] [place] [address] Dr. Roberto Cabral Creatinine [Mass/Vol] 1.85 mg/dL Critically high 0.70-1.30 [facility] Comment on above: Performed By: #### T SH, LIVER, LIPID, BMP, T7 #### [facility] [address] [place] [address] Dr. Roberto Cabral EGFR-AF KITTITIAN 43 mL/min/1.73m2 Critically low >=60 [facility] Comment on above: Performed By: #### T SH, LIVER, LIPID, BMP, T7 #### [facility] [address] [place] [address] Dr. Roberto Cabral EGFR-NON AF KITTITIAN 36 mL/min/1.73m2 Critically low >=60 [facility] Comment on above: Performed By: #### T SH, LIVER, LIPID, BMP, T7 #### [facility] [address] [place] [address] Dr. Roberto Cabral Globulin (S) [Mass/Vol] 3.4 g/dL Normal [facility] Comment on above: Performed By: #### T SH, LIVER, LIPID, BMP, T7 #### [facility] [address] [place] [address] Dr. Roberto Cabral Glucose [Mass/Vol] 113 mg/dL Critically high 74-106 [facility] Comment on above: Performed By: #### T SH, LIVER, LIPID, BMP, T7 #### [facility] [address] [address] [address] Roberto Cabral Potassium [Moles/Vol] 4.7 mmol/L Normal 3.5-5.1 [facility] Comment on above: Performed By: #### T SH, LIVER, LIPID, BMP, T7 #### [facility] [address] [place] [address] Dr. Roberto Cabral Protein [Mass/Vol] 6.5 g/dL Normal 6.4-8.2 [facility] Comment on above: Performed By: #### T SH, LIVER, LIPID, BMP, T7 #### [facility] [address] [place] [address] Dr. Roberto Cabral Sodium [Moles/Vol] 139 mmol/L Normal 136-145 [facility] Comment on above: Performed By: #### T SH, LIVER, LIPID, BMP, T7 #### [facility] [address] [place] [address] Dr. Roberto Cabral Urea nitrogen [Mass/Vol] 66.0 mg/dL Critically high 7.0-18.0 [facility] Comment on above: Performed By: #### T SH, LIVER, LIPID, BMP, T7 #### [facility] [address] [place] [address] Dr. Roberto Cabral Urea nitrogen/Creatinin e [Mass ratio] 35.7 mg/mg Normal [facility] Comment on above: Performed By: #### T SH, LIVER, LIPID, BMP, T7 #### [facility] [address] [place] [address] Dr. Roberto Cabral CBC AUTO DIFFon 06-09-2022 BASO # 0.0 103/ul Normal 0.0-0.1 [facility] Comment on above: Performed By: #### T SH, LIVER, LIPID, BMP, T7 #### [facility] [address] [place] [address] Dr. Roberto Cabral Basophils/100 WBC (Bld) 0.2 % Normal 0.2-2.0 [facility] Comment on above: Performed By: #### T SH, LIVER, LIPID, BMP, T7 #### [facility] [address] [place] [address] Dr. Roberto Cabral EO # 0.3 103/ul Normal 0.0-0.7 [facility] Comment on above: Performed By: #### T SH, LIVER, LIPID, BMP, T7 #### [facility] [address] [place] [address] Dr. Roberto Cabral Eosinophils/100 WBC (Bld) 1.7 % Normal 0.9-7.0 [facility] Comment on above: Performed By: #### T SH, LIVER, LIPID, BMP, T7 #### [facility] [address] [place] [address] Dr. Roberto Cabral Erythrocyte distribution width (RBC) [Ratio] 15.4 % Critically high 11.0-15.0 [facility] Comment on above: Performed By: #### T SH, LIVER, LIPID, BMP, T7 #### [facility] [address] [place] [address] Dr. Roberto Cabral Hematocrit (Bld) [Volume fraction] 40.2 % Critically low 42.0-54.0 [facility] Comment on above: Performed By: #### T SH, LIVER, LIPID, BMP, T7 #### [facility] [address] [place] [address] Dr. Roberto Cabral Hemoglobin (Bld) [Mass/Vol] 12.6 g/dL Critically low 14.0-18.0 [facility] Comment on above: Performed By: #### T SH, LIVER, LIPID, BMP, T7 #### [facility] [address] [place] [address] Dr. Roberto Cabral IG # 0.09 10e3/ul Critically high 0.00-0.03 [facility] Comment on above: Performed By: #### T SH, LIVER, LIPID, BMP, T7 #### [facility] [address] [place] [address] Dr. Roberto Cabral IG % 0.5 % Normal 0.0-0.5 [facility] Comment on above: Performed By: #### T SH, LIVER, LIPID, BMP, T7 #### [facility] [address] [place] [address] Dr. Roberto Cabral LYMPH # 1.5 103/ul Normal 1.2-3.8 [facility] Comment on above: Performed By: #### T SH, LIVER, LIPID, BMP, T7 #### [facility] [address] [place] [address] Dr. Roberto Cabral Lymphocytes/100 WBC (Bld) 8.0 % Critically low 20.5-60.0 [facility] Comment on above: Performed By: #### T SH, LIVER, LIPID, BMP, T7 #### [facility] [address] [place] [address] Dr. Roberto Cabral MANUAL DIFF REQ NO Normal [facility] Comment on above: Performed By: #### T SH, LIVER, LIPID, BMP, T7 #### [facility] [address] [place] [address] Dr. Roberto Cabral MCH (RBC) [Entitic mass] 28.0 pg Normal 25.9-34.0 [facility] Comment on above: Performed By: #### T SH, LIVER, LIPID, BMP, T7 #### [facility] [address] [place] [address] Dr. Roberto Cabral MCHC (RBC) [Mass/Vol] 31.3 g/dL Normal 29.9-35.2 [facility] Comment on above: Performed By: #### T SH, LIVER, LIPID, BMP, T7 #### [facility] [address] [place] [address] Dr. Roberto Cabral MCV (RBC) [Entitic vol] 89.3 fL Normal 80.0-94.0 [facility] Comment on above: Performed By: #### T SH, LIVER, LIPID, BMP, T7 #### [facility] [address] [place] [address] Dr. Roberto Cabral MONO # 1.5 103/ul Critically high 0.3-0.8 [facility] Comment on above: Performed By: #### T SH, LIVER, LIPID, BMP, T7 #### [facility] [address] [place] [address] Dr. Roberto Cabral Monocytes/100 WBC (Bld) 8.2 % Normal 1.7-12.0 [facility] Comment on above: Performed By: #### T SH, LIVER, LIPID, BMP, T7 #### [facility] [address] [place] [address] Dr. Roberto Cabral NEUT # 14.9 103/ul Critically high 1.4-6.5 [facility] Comment on above: Performed By: #### T SH, LIVER, LIPID, BMP, T7 #### [facility] [address] [place] [address] Dr. Roberto Cabral Neutrophils/100 WBC (Bld) 81.4 % Critically high 43.0-75.0 [facility] Comment on above: Performed By: #### T SH, LIVER, LIPID, BMP, T7 #### [facility] [address] [place] [address] Dr. Roberto Cabral Platelet mean volume (Bld) [Entitic vol] 10.0 fL Normal 9.5-13.5 [facility] Comment on above: Performed By: #### T SH, LIVER, LIPID, BMP, T7 #### [facility] [address] [place] [address] Dr. Roberto Cabral PLT 358 103/ul Normal 150-450 [facility] Comment on above: Performed By: #### T SH, LIVER, LIPID, BMP, T7 #### [facility] [address] [place] [address] Dr. Roberto Cabral RBC 4.50 106/ul Critically low 4.70-6.10 [facility] Comment on above: Performed By: #### T SH, LIVER, LIPID, BMP, T7 #### [facility] [address], [place] [address] Dr. Roberto Cabral WBC 18.3 103/ul Critically high 4.0-11.0 [facility] Comment on above: Performed By: #### T SH, LIVER, LIPID, BMP, T7 #### [facility] [address], [place] [address] ABD/PELVIS WO CONon [...] DEVIN ORTIZ Date: 2021-12-09 20:39 Normal [facility] Covid-19 PCR (CVDTB)on SARS-CoV-2 (COVID-19) RNA JOSÉ+probe Ql (Unsp spec) Not detected Normal NOT DETECTED [facility] Comment on above: Result Comment: When diagnostic [...] for this test is supported by the [employer] of Health and Human Service's declaration that [...] T SH, LIVER, LIPID, BMP, T7 #### [facility] [address] [place] [address] Dr. Roberto Cabral LACTATE/LACTIC ACIDon 2021 Lactate [Moles/Vol] 1.1 mmol/L Normal 0.4-1.9 [facility] Comment on above: Performed By: #### T SH, LIVER, LIPID, BMP, T7 #### [facility] [address] [place] [address] Dr. Roberto Cabral LIPASEon 12-09-2021 Lipase [Catalytic activity/Vol] 186.0 U/L Normal 73.0-393.0 [facility] Comment on above: Performed By: #### T SH, LIVER, LIPID, BMP, T7 #### [facility] [address] [place] [address] Dr. Roberto Cabral PROF 14(COMP METB)on 022 Albumin [Mass/Vol] 3.6 g/dL Normal 3.4-5.0 [facility] Comment on above: Performed By: #### T SH, LIVER, LIPID, BMP, T7 #### [facility] [address] [place] [address] Dr. Roberto Cabral Albumin/Globulin [Mass ratio] 1.0 {ratio} Normal [facility] Comment on above: Performed By: #### T SH, LIVER, LIPID, BMP, T7 #### [facility] [address] [place] [address] Dr. Roberto Cabral ALP [Catalytic activity/Vol] 79 U/L Normal 46-116 [facility] Comment on above: Performed By: #### T SH, LIVER, LIPID, BMP, T7 #### [facility] [address] [place] [address] Dr. Roberto Cabral ALT [Catalytic activity/Vol] 19 U/L Normal 16-63 [facility] Comment on above: Performed By: #### T SH, LIVER, LIPID, BMP, T7 #### [facility] [address] [place] [address] Dr. Roberto Cabral Anion gap [Moles/Vol] 20.6 mmol/L Normal [facility] Comment on above: Performed By: #### T SH, LIVER, LIPID, BMP, T7 #### [facility] [address] [place] [address] Dr. Roberto Cabral AST [Catalytic activity/Vol] 19 U/L Normal 15-37 [facility] Comment on above: Performed By: #### T SH, LIVER, LIPID, BMP, T7 #### [facility] [address] [place] [address] Dr. Roberto Cabral Bilirubin [Mass/Vol] 0.3 mg/dL Normal 0.2-1.0 [facility] Comment on above: Performed By: #### T SH, LIVER, LIPID, BMP, T7 #### [facility] [address] [place] [address] Dr. Roberto Cabral Calcium [Mass/Vol] 9.4 mg/dL Normal 8.5-10.1 [facility] Comment on above: Performed By: #### T SH, LIVER, LIPID, BMP, T7 #### [facility] [address] [place] [address] Dr. Roberto Cabral Chloride [Moles/Vol] 107 mmol/L Normal 98-107 [facility] Comment on above: Performed By: #### T SH, LIVER, LIPID, BMP, T7 #### [facility] [address] [place] [address] Dr. Roberto Cabral CO2 [Moles/Vol] 14.9 mmol/L Critically low 21.0-32.0 [facility] Comment on above: Performed By: #### T SH, LIVER, LIPID, BMP, T7 #### [facility] [address] [place] [address] Dr. Roberto Cabral Creatinine [Mass/Vol] 2.11 mg/dL Critically high 0.70-1.30 [facility] Comment on above: Performed By: #### T SH, LIVER, LIPID, BMP, T7 #### [facility] [address] [place] [address] Dr. Roberto Cabral EGFR-AF KITTITIAN 37 mL/min/1.73m2 Critically low >=60 [facility] Comment on above: Performed By: #### T SH, LIVER, LIPID, BMP, T7 #### [facility] [address] [place] [address] Dr. Roberto Cabral EGFR-NON AF KITTITIAN 31 mL/min/1.73m2 Critically low >=60 [facility] Comment on above: Performed By: #### T SH, LIVER, LIPID, BMP, T7 #### [facility] [address] [place] [address] Dr. Roberto Cabral Globulin (S) [Mass/Vol] 3.5 g/dL Normal [facility] Comment on above: Performed By: #### T SH, LIVER, LIPID, BMP, T7 #### [facility] [address] [address] [address] Roberto Cabral Glucose [Mass/Vol] 170 mg/dL Critically high 74-106 [facility] Comment on above: Performed By: #### T SH, LIVER, LIPID, BMP, T7 #### [facility] [address] [place] [address] Dr. Roberto Cabral Potassium [Moles/Vol] 5.5 mmol/L Critically high 3.5-5.1 [facility] Comment on above: Performed By: #### T SH, LIVER, LIPID, BMP, T7 #### [facility] [address] [place] [address] Dr. Roberto Cabral Protein [Mass/Vol] 7.1 g/dL Normal 6.4-8.2 [facility] Comment on above: Performed By: #### T SH, LIVER, LIPID, BMP, T7 #### [facility] [address] [place] [address] Dr. Roberto Cabral Sodium [Moles/Vol] 137 mmol/L Normal 136-145 [facility] Comment on above: Performed By: #### T SH, LIVER, LIPID, BMP, T7 #### [facility] [address] [place] [address] Dr. Roberto Cabral Urea nitrogen [Mass/Vol] 70.0 mg/dL Critically high 7.0-18.0 [facility] Comment on above: Performed By: #### T SH, LIVER, LIPID, BMP, T7 #### [facility] [address] [place] [address] Dr. Roberto Cabral Urea nitrogen/Creatinin e [Mass ratio] 33.2 mg/mg Normal [facility] Comment on above: Performed By: #### T SH, LIVER, LIPID, BMP, T7 #### [facility] [address] [place] [address] Dr. Roberto Cabral PROTIMEon 12-09-2021 INR Coag (PPP) [Relative time] 1.04 {INR} Normal [facility] Comment on above: Performed By: #### T SH, LIVER, LIPID, BMP, T7 #### [facility] [address] [place] [address] Dr. Roberto Cabral INR GUIDELINES SEE BELOW Normal [facility] Comment on above: Result Comment: NIKI RED INR: 2.0 - 3.0 CONDITIONS NOT LISTED BELOW 2.5 - 3.5 FOR PROSTHETIC HEART VALVE REPLACEMENT 2.5 - 3.5 RECURRENT THROMBOSIS Performed By: #### T SH, LIVER, LIPID, BMP, T7 #### [facility] [address] [address] [address] Roberto Cabral PT Coag (PPP) [Time] 11.2 s Normal 9.0-11.6 [facility] Comment on above: Performed By: #### T SH, LIVER, LIPID, BMP, T7 #### [facility] [address] [address] [address] Roberto Cabral PTTon 12-09-2021 aPTT Coag (Bld) [Time] 33.4 s Normal 22.3-36.2 [facility] Comment on above: Performed By: #### T SH, LIVER, LIPID, BMP, T7 #### [facility] [address] [place] [address] Dr. Roberto Cabral TROPONIN, HIGH SENSITIVITYon 12-09-2021 HSTROP 11.4 pg/mL Normal 4.0-76.1 [facility] Comment on above: Result Comment: CUT- OFF POINTS HAVE BEEN ESTABLISHED BASED ON THE FOURTH UNIVERSAL DEFINITIONS OF MYOCARDIAL INFARCTION. THE UPPER REFERENCE LIMIT (URL) OF TROPONIN, DEFINED THE 99TH PERCENTILE OF cTnI DISTRIBUTION IN A REFERENCE POPULATION, HAS BEEN CONFIRMED THE DECISION THRESHOLD FOR ME DIAGNOSIS. Performed By: #### T SH, LIVER, LIPID, BMP, T7 #### [facility] [address] [place] [address] Dr. Roberto Cabral Pre-Certification Formon Pre-Certification Form [id number]#1.00CD:127 Normal [facility] Facesheeton 12-01-2021 Facesheet [id number]#1.00CD:127 Normal [facility] General Surgery Office/Clini c Noteon 11-30-2021 General [...] SARS-CoV-2 (COVID-19) Ad26 vaccine 08/31/2020 Recorded Normal [facility] Comment on above: Result Comment: Elec tronically Signed By: HUMBERTO CRAWLEY, Gwen Mata\Date and Time Signed: 11/30/21 17:22 EDT Outside Colonoscopyon 2021 Outside Colonoscopy [id number]#1.00CD:127 Normal [facility] Pathology Noteon 11-22-2021 Pathology Note [id number]#1.00CD:127 Normal [facility] POINT OF CARE GLUCOSEon 10-31 Glucose [Mass/Vol] 115 mg/dL Critically high 74-106 [facility] Comment on above: Performed By: #### T SH, LIVER, LIPID, BMP, T7 #### [facility] [address] [address] [address] Roberto Cabral Pre-Certification Formon Pre-Certification Form [id number]#[id number]:127 Normal [facility] Consent for Procedure/Surger yon 10-28-2021 Consent for Procedure/Surgery [id number]#1.00CD:127 Normal [facility] Ambulatory Visit Summaryon 0 10-27-2021 Ambulatory Visit [...] Obstructive sleep apnea syndrome Sleep apnea Normal [facility] Physician Referralon 022 Physician Referral [id number]#1.00CD:127 Normal [facility] Vital Signs Date Time Vital Sign Value Performing Clinician Rodney fowler 10-27-2021 14:12-0400 Blood Pressure Location [facility] Contacts+ 10-27-2021 14:12-0400 Diastolic blood pressure 64 mm[Hg] [facility] [place] 10-27-2021 14:12-0400 Heart rate 72 /min [facility] [place] 10-27-2021 14:12-0400 Respiratory rate 16 /min [facility] [place] 10-27-2021 14:12-0400 Systolic blood pressure 120 mm[Hg] [facility] [place] Encounters Encounter Date Encounter Type Care Provider [...] Start: 01-18-2017 End: 01-19-2017 Ambulatory DEFAULT PHYSICIAN Facility:[facility] Procedures Date Procedure Procedure Detail Performing Clinician Start: 10-14-[address] ANANT ZHANG . Comment on above: Performed By: #### T SH, LIVER, LIPID, BMP, T7 #### [facility] [address] [place] [address] Dr. Roberto Cabral Start: 12-20-2016 Colonoscopy Gwen WELCH Cholecystectomy Gwen MEYL Immunizations Immunization Date Immunization Notes Care Provider [facility] 06-25-2021 SARS-CoV-2 (COVID-19 ) Ad26 vaccine, recombinant Gwen NILL [facility] [place] 09-22-2020 SARS-CoV-2 (COVID-19 ) Ad26 vaccine, recombinant Gwen NILL [facility] [place] 08-31-2020 SARS-CoV-2 (COVID-19 ) Ad26 vaccine, recombinant Gwen NILL [facility] [place] Payers Date Payer Category Payer Unknown [id number] 1945 Unknown [id number] 2.16.84 [id number] 1945 Unknown [id number] 2.16.84 [id number] 1945 Unknown [id number] 2.16.84 [id number] 1945 Unknown [id number] 2.16.84 [id number] 1945 Unknown [id number] 2.16.84 [id number] 1945 Unknown [id number] 2.16.84 [id number] Unknown Social History Date Type Detail Facility Start: 10-27-2021 Tobacco smoking status Ex-smoker (fi nding) [facility] [employer] Tobacco smoking status Never Gener [facility] Contacts+ Sex Assigned At Male Genera l [facility] [employer] Clinical Note 11-17-2021 Note Date & Type [...] health for screening. CC: Adonay Zhang M.D. [facility] Signed and Approved by: DR GWEN LORENZO . 11/24/2021 10:45:00 [facility] Clinical Note 10-27-2021 Note Date & Type [...] mg Tab, 2 (more content not included)... [facility] Comment on above: Result Comment: Elec tronically Signed By: HUMBERTO CRAWLEY, Gwen Whitaker.cristobal\Date and Time Signed: 10/27/21 19:49 EDT Evaluation + Plan note Note Date & Type Note Facility Evaluation + Plan note No data available for this section [facility] [place] [facility] Discharge instructions Note Date & Type Note Facility Hospital Discharge instructions No data available for this section [facility] [place] Summary Purpose Family History No Family History Records FoundNo Family History Records FoundNo Family History Records Found Advance Directives No Advanced Directives Records FoundNo Advanced Directives Records FoundNo Advanced Directives Records Found Additional Source Comments (unrecognized sect ion and content) No Status Records FoundNo Status Records FoundNo Status Records Found INFORMATION SOURCE (unrecogn ized section and content) DATE CREATED AUTHOR 12/27/2017 [facility] DATE CREATED AUTHOR AUTHOR'S ORGANIZ ATION 12/18/2021 [facility] DATE CREATED AUTHOR AUTHOR'S ORGANIZ ATION 10/20/2022 [facility] FOR RECORDS PERTAINING TO PATIENTS WHO ARE [...] BE BASED ON THE PRIMARY CLINICAL RECORDS. ENJORE [facility]. provides no warranty or guarantee of the accuracy or completeness of information in this document.
[2023-08-10 11:31] LABS: Reticulocyte Pct Auto 1.13 % (0.60-3.10)
[2023-08-11 05:07] LABS: Transferrin 379 mg/dL (177-329)
== END 2023-08-10 11:09 | disposition home or self-care (01) ==
LOC: LAB 11:09
PROVIDERS: PCP Family Medicine; Visit Provider Family Medicine
DX: D64.9 Anemia, unspecified (principal)
CPT/HCPCS: 36415; 82607; 82746; 83540; 84466

== ENCOUNTER 2023-08-11 12:58 | Outpatient (REF) | payer MEDICARE, SELFPAY ==
--- OUTSIDE RECORDS SUMMARY | 2023-08-12 10:41 | XMS_ITS | CCD ---
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; Translations: [INTERMEDIATE CURRENT USE OF ASPIRIN] Onset: 12-15-2021 Episodic Other aftercare (1 source) assisted (current) use of oral hypoglycemic drugs; Translations: [PSYCHOLOGIST USE ORAL HYPOGLYCEMIC DX] Onset: 12-15-2021 Episodic [...] Test Name Value Interpretation Reference Range Facility Physician Referralon 024 Physician Referral [id number] 2 [id number] Normal [facility] CBC AUTO DIFFon 10-14-2022 BASO # 0.1 103/ul Normal 0.0-0.1 [facility] Comment on above: Performed By: #### T SH, LIVER, LIPID, BMP, T7 #### [facility] [address] [place] [address] Dr. Roberto Cabral Basophils/100 WBC (Bld) 0.7 % Normal 0.2-2.0 [facility] Comment on above: Performed By: #### T SH, LIVER, LIPID, BMP, T7 #### [facility] [address] [address] [address] Roberto Cabral EO # 0.5 103/ul Normal 0.0-0.7 [facility] Comment on above: Performed By: #### T SH, LIVER, LIPID, BMP, T7 #### [facility] [address] [address] [address] Roberto Cabral Eosinophils/100 WBC (Bld) 5.3 % Normal 0.9-7.0 [facility] Comment on above: Performed By: #### T SH, LIVER, LIPID, BMP, T7 #### [facility] [address] [place] [address] Dr. Roberot Cabral Erythrocyte distribution width (RBC) [Ratio] 15.8 % Critically high 11.0-15.0 [facility] Comment on above: Performed By: #### T SH, LIVER, LIPID, BMP, T7 #### [facility] [address] [place], [place] [id number] Dr. Roberto Cabral Hematocrit (Bld) [Volume fraction] 34.4 % Critically low 42.0-54.0 [facility] Comment on above: Performed By: #### T SH, LIVER, LIPID, BMP, T7 #### [facility] [address] [place] [address] Dr. Roberto Cabral Hemoglobin (Bld) [Mass/Vol] 10.2 g/dL Critically low 14.0-18.0 [facility] Comment on above: Performed By: #### T SH, LIVER, LIPID, BMP, T7 #### [facility] [address] [place] [address] Dr. Roberto Cabral IG # 0.03 10e3/ul Normal 0.00-0.03 [facility] Comment on above: Performed By: #### T SH, LIVER, LIPID, BMP, T7 #### [facility] [address] [place] [address] Dr. Roberto Cabral IG % 0.3 % Normal 0.0-0.5 [facility] Comment on above: Performed By: #### T SH, LIVER, LIPID, BMP, T7 #### [facility] [address] [place] [address] Dr. Roberto Cabral LYMPH # 1.9 103/ul Normal 1.2-3.8 [facility] Comment on above: Performed By: #### T SH, LIVER, LIPID, BMP, T7 #### [facility] [address] [place] [address] Dr. Roberto Cabral Lymphocytes/100 WBC (Bld) 21.0 % Normal 20.5-60.0 [facility] Comment on above: Performed By: #### T SH, LIVER, LIPID, BMP, T7 #### [facility] [address] [place] [address] Dr. Roberto Cabral MANUAL DIFF REQ NO Normal [facility] Comment on above: Performed By: #### T SH, LIVER, LIPID, BMP, T7 #### [facility] [address] [place] [address] Dr. Roberto Cabral MCH (RBC) [Entitic mass] 22.7 pg Critically low 25.9-34.0 [facility] Comment on above: Performed By: #### T SH, LIVER, LIPID, BMP, T7 #### [facility] [address] [place] [address] Dr. Roberto Cabral MCHC (RBC) [Mass/Vol] 29.7 g/dL Critically low 29.9-35.2 [facility] Comment on above: Performed By: #### T SH, LIVER, LIPID, BMP, T7 #### [facility] [address] [address] [address] Roberto Cabral MCV (RBC) [Entitic vol] 76.6 fL Critically low 80.0-94.0 [facility] Comment on above: Performed By: #### T SH, LIVER, LIPID, BMP, T7 #### [facility] [address] [place] [address] Dr. Roberto Cabral MONO # 0.9 103/ul Critically high 0.3-0.8 [facility] Comment on above: Performed By: #### T SH, LIVER, LIPID, BMP, T7 #### [facility] [address] [place] [address] Dr. Roberto Cabral Monocytes/100 WBC (Bld) 10.0 % Normal 1.7-12.0 [facility] Comment on above: Performed By: #### T SH, LIVER, LIPID, BMP, T7 #### [facility] [address] [place] [address] Dr. Roberto Cabral NEUT # 5.7 103/ul Normal 1.4-6.5 [facility] Comment on above: Performed By: #### T SH, LIVER, LIPID, BMP, T7 #### [facility] [address] [address] [address] Roberto Cabral Neutrophils/100 WBC (Bld) 62.7 % Normal 43.0-75.0 [facility] Comment on above: Performed By: #### T SH, LIVER, LIPID, BMP, T7 #### [facility] [address] [address] [address] Roberto Cabral Platelet mean volume (Bld) [Entitic vol] 9.8 fL Normal 9.5-13.5 [facility] Comment on above: Performed By: #### T SH, LIVER, LIPID, BMP, T7 #### [facility] [address] [address] [address] Roberto Cabral PLT 290 103/ul Normal 150-450 [facility] Comment on above: Performed By: #### T SH, LIVER, LIPID, BMP, T7 #### [facility] [address] [address] [address] Roberto Cabral RBC 4.49 106/ul Critically low 4.70-6.10 [facility] Comment on above: Performed By: #### T SH, LIVER, LIPID, BMP, T7 #### [facility] [address] [address] [address] Roberto Cabral WBC 9.1 103/ul Normal 4.0-11.0 [facility] Comment on above: Performed By: #### T SH, LIVER, LIPID, BMP, T7 #### [facility] [address] [place] [address] Dr. Roberto Cabral FREE THYROXINE INDEX T7on FTI 2.73 Normal 1.30-4.50 [facility] Comment on above: Performed By: #### T SH, LIVER, LIPID, BMP, T7 #### [facility] [address] [place] [address] Dr. Roberto Cabral T3U 35.0 % Normal 33.0-40.0 [facility] Comment on above: Performed By: #### T SH, LIVER, LIPID, BMP, T7 #### [facility] [address] [address] [address] Roberto Cabral T4 [Mass/Vol] 7.80 ug/dL Normal 4.50-12.10 [facility] Comment on above: Performed By: #### T SH, LIVER, LIPID, BMP, T7 #### [facility] [address] [place] [address] Dr. Roberto Cabral GLYCOHEMOGLOBIN A1Con 2022 ADA RECOMMENDATION SEE BELOW Normal [facility] Comment on above: Result Comment: ADA RECOMMENDED LIMIT 4.0 - 6.0 ADA THERAPEUTIC TARGET < 7.0 ACTION SUGGESTED > 7.0 Performed By: #### A 1C #### [facility] [address] [place] [address] Dr. Roberto Cabral Glucose [Mass/Vol] 126 mg/dL Normal [facility] Comment on above: Performed By: #### A 1C #### [facility] [address] [address] [address] Roberto Cabral HbA1c (Bld) [Mass fraction] 6.0 % Normal 4.5-6.2 [facility] Comment on above: Performed By: #### A 1C #### [facility] [address] [place] [address] Dr. Roberto Cabral LIPID PROFILEon 10-14-2022 CHOL-HDL RATIO NORM SEE BELOW Normal [facility] Comment on above: Result Comment: 3.3 - 4.4 LOW RISK 4.4 - 7.1 AVERAGE RISK 7.1 - 11.0 MODERATE RISK >11.0 HIGH RISK Performed By: #### T SH, LIVER, LIPID, BMP, T7 #### [facility] [address] [place] [address] Dr. Roberto Cabral Cholesterol [Mass/Vol] 129 mg/dL Normal <=200 [facility] Comment on above: Performed By: #### T SH, LIVER, LIPID, BMP, T7 #### [facility] [address] [place] [address] Dr. Roberto Cabral Cholesterol in HDL [Mass/Vol] 45 mg/dL Normal 40-60 [facility] Comment on above: Performed By: #### T SH, LIVER, LIPID, BMP, T7 #### [facility] [address] [address] [address] Roberto Cabral Cholesterol in LDL [Mass/Vol] 62.4 mg/dL Normal [facility] Comment on above: Performed By: #### T SH, LIVER, LIPID, BMP, T7 #### [facility] [address] [place] [address] Dr. Roberto Cabral Cholesterol.total/Ch olesterol in HDL [Mass ratio] 2.9 {ratio} Normal [facility] Comment on above: Performed By: #### T SH, LIVER, LIPID, BMP, T7 #### [facility] [address] [address] [address] Roberto Cabral HDL NORMAL > or = 60 mg/dl - LO W CARDIOVASCULAR RISK <40 mg/dl - HIGH CARDIOVASCULAR RISK Normal [facility] Comment on above: Performed By: #### T SH, LIVER, LIPID, BMP, T7 #### [facility] [address] [address] [address] Roberto Cabral LDL CALC NORMAL SEE BELOW Normal [facility] Comment on above: Result Comment: <100 mg/dl OPTIMAL 100 - 129 mg/dl NEAR OR ABOVE OPTIMAL 130 - 159 mg/dl BORDERLINE HIGH 160 - 189 mg/dl HIGH >190 mg/dl VERY HIGH Performed By: #### T SH, LIVER, LIPID, BMP, T7 #### [facility] [address] [address] [address] Roberto Cabral Triglyceride [Mass/Vol] 108 mg/dL Normal <=150 [facility] Comment on above: Performed By: #### T SH, LIVER, LIPID, BMP, T7 #### [facility] [address] [address] [address] Roberto Cabral VLDL CALC 21.6 mg/dL Normal [facility] Comment on above: Performed By: #### T SH, LIVER, LIPID, BMP, T7 #### [facility] [address] [address] [address] Roberto Cabral LIVER PROFILEon 10-14-2022 Albumin [Mass/Vol] 3.6 g/dL Normal 3.4-5.0 [facility] Comment on above: Performed By: #### T SH, LIVER, LIPID, BMP, T7 #### [facility] [address] [address] [address] Roberto Cabral Albumin/Globulin [Mass ratio] 1.0 {ratio} Normal [facility] Comment on above: Performed By: #### T SH, LIVER, LIPID, BMP, T7 #### [facility] [address] [address] [address] Roberto Cabral ALP [Catalytic activity/Vol] 80 U/L Normal 46-116 [facility] Comment on above: Performed By: #### T SH, LIVER, LIPID, BMP, T7 #### [facility] [address] [address] [address] Roberto Cabral ALT [Catalytic activity/Vol] 21 U/L Normal 16-63 [facility] Comment on above: Performed By: #### T SH, LIVER, LIPID, BMP, T7 #### [facility] [address] [address] [address] Roberto Cabral AST [Catalytic activity/Vol] 14 U/L Critically low 15-37 [facility] Comment on above: Performed By: #### T SH, LIVER, LIPID, BMP, T7 #### [facility] [address] [place] [address] Dr. Roberto Cabral BILI, CONJUGATED 0.1 mg/dL Normal 0.0-0.2 [facility] Comment on above: Performed By: #### T SH, LIVER, LIPID, BMP, T7 #### [facility] [address] [place] [address] Dr. Roberto Cabral Bilirubin [Mass/Vol] 0.2 mg/dL Normal 0.2-1.0 [facility] Comment on above: Performed By: #### T SH, LIVER, LIPID, BMP, T7 #### [facility] [address] [place] [address] Dr. Roberto Cabral Globulin (S) [Mass/Vol] 3.6 g/dL Normal [facility] Comment on above: Performed By: #### T SH, LIVER, LIPID, BMP, T7 #### [facility] [address] [place] [address] Dr. Roberto Cabral Protein [Mass/Vol] 7.2 g/dL Normal 6.4-8.2 [facility] Comment on above: Performed By: #### T SH, LIVER, LIPID, BMP, T7 #### [facility] [address] [place] [address] Dr. Roberto Cabral PROF CHEM 8 (BAS METB)on Anion gap [Moles/Vol] 13.9 mmol/L Normal [facility] Comment on above: Performed By: #### T SH, LIVER, LIPID, BMP, T7 #### [facility] [address] [address] [address] Roberto Cabral Calcium [Mass/Vol] 9.2 mg/dL Normal 8.5-10.1 [facility] Comment on above: Performed By: #### T SH, LIVER, LIPID, BMP, T7 #### [facility] [address] [address] [address] Roberto Cabral Chloride [Moles/Vol] 110 mmol/L Critically high 98-107 [facility] Comment on above: Performed By: #### T SH, LIVER, LIPID, BMP, T7 #### [facility] [address] [place] [address] Dr. Roberto Cabral CO2 [Moles/Vol] 26.2 mmol/L Normal 21.0-32.0 [facility] Comment on above: Performed By: #### T SH, LIVER, LIPID, BMP, T7 #### [facility] [address] [place] [address] Dr. Roberto Cabral Creatinine [Mass/Vol] 1.02 mg/dL Normal 0.70-1.30 [facility] Comment on above: Performed By: #### T SH, LIVER, LIPID, BMP, T7 #### [facility] [address] [place] [address] Dr. Roberto Cabral EGFR-AF MOSOTHO >60 Normal >=60 [facility] Comment on above: Performed By: #### T SH, LIVER, LIPID, BMP, T7 #### [facility] [address] [place] [address] Dr. Roberto Cabral EGFR-NON AF MOSOTHO >60 Normal >=60 [facility] Comment on above: Performed By: #### T SH, LIVER, LIPID, BMP, T7 #### [facility] [address] [place] [address] Dr. Roberto Cabral Glucose [Mass/Vol] 120 mg/dL Critically high 74-106 [facility] Comment on above: Performed By: #### T SH, LIVER, LIPID, BMP, T7 #### [facility] [address] [address] [address] Roberto Cabral Potassium [Moles/Vol] 4.1 mmol/L Normal 3.5-5.1 [facility] Comment on above: Performed By: #### T SH, LIVER, LIPID, BMP, T7 #### [facility] [address] [place] [address] Dr. Roberto Cabral Sodium [Moles/Vol] 146 mmol/L Critically high 136-145 [facility] Comment on above: Performed By: #### T SH, LIVER, LIPID, BMP, T7 #### [facility] [address] [place] [address] Dr. Roberto Cabral Urea nitrogen [Mass/Vol] 26.0 mg/dL Critically high 7.0-18.0 [facility] Comment on above: Performed By: #### T SH, LIVER, LIPID, BMP, T7 #### [facility] [address] [place] [address] Dr. Roberto Cabral Urea nitrogen/Creatinine [Mass ratio] 25.5 mg/mg Normal [facility] Comment on above: Performed By: #### T SH, LIVER, LIPID, BMP, T7 #### [facility] [address] [place] [address] Dr. Roberto Cabral TSHon 10-14-2022 TSH 1.674 uIU/mL Normal 0.358-3.740 [facility] Comment on above: Performed By: #### T SH, LIVER, LIPID, BMP, T7 #### [facility] [address] [place] [address] Dr. Roberto Cabral [facility]01 SARS-CoV-2 (COVID-19) RNA JOSÉ+probe Ql (Unsp spec) Detected Critically abnormal NOT DETECTED [facility] Comment on above: Result Comment: This test is not yet approved or cleared by the [place] FDA. When there are no FDA-approved or cleared tests available, and other criteria are met, FDA can make tests available under an emergency access mechanism called an Emergency Use Authorization (EUA). The EUA for this test is supported by the [employer] of Health and Human Service's (HHS's) declaration [...] SH, LIVER, LIPID, BMP, T7 #### [facility] [address] [place] [address] Dr. Roberto Cabral PROF 14(COMP METB)on 022 Albumin [Mass/Vol] 3.3 g/dL Critically low 3.4-5.0 [facility] Comment on above: Performed By: #### T SH, LIVER, LIPID, BMP, T7 #### [facility] [address] [place] [address] Dr. Roberto Cabral Albumin/Globulin [Mass ratio] 1.0 {ratio} Normal [facility] Comment on above: Performed By: #### T SH, LIVER, LIPID, BMP, T7 #### [facility] [address] [place] [address] Dr. Roberto Cabral ALP [Catalytic activity/Vol] 95 U/L Normal 46-116 [facility] Comment on above: Performed By: #### T SH, LIVER, LIPID, BMP, T7 #### [facility] [address] [place] [address] Dr. Roberto Cabral ALT [Catalytic activity/Vol] 22 U/L Normal 16-63 [facility] Comment on above: Performed By: #### T SH, LIVER, LIPID, BMP, T7 #### [facility] [address] [place] [address] Dr. Roberto Cabral Anion gap [Moles/Vol] 14.0 mmol/L Normal [facility] Comment on above: Performed By: #### T SH, LIVER, LIPID, BMP, T7 #### [facility] [address] [place] [address] Dr. Roberto Cabral AST [Catalytic activity/Vol] 12 U/L Critically low 15-37 [facility] Comment on above: Performed By: #### T SH, LIVER, LIPID, BMP, T7 #### [facility] [address] [place] [address] Dr. Roberto Cabral Bilirubin [Mass/Vol] 0.2 mg/dL Normal 0.2-1.0 [facility] Comment on above: Performed By: #### T SH, LIVER, LIPID, BMP, T7 #### [facility] [address] [address] [address] Roberto Cabral Calcium [Mass/Vol] 8.6 mg/dL Normal 8.5-10.1 [facility] Comment on above: Performed By: #### T SH, LIVER, LIPID, BMP, T7 #### [facility] [address] [place] [address] Dr. Roberto Cabral Chloride [Moles/Vol] 110 mmol/L Critically high 98-107 [facility] Comment on above: Performed By: #### T SH, LIVER, LIPID, BMP, T7 #### [facility] [address] [place] [address] Dr. Roberto Cabral CO2 [Moles/Vol] 22.6 mmol/L Normal 21.0-32.0 [facility] Comment on above: Performed By: #### T SH, LIVER, LIPID, BMP, T7 #### [facility] [address] [place] [address] Dr. Roberto Cabral Creatinine [Mass/Vol] 1.05 mg/dL Normal 0.70-1.30 [facility] Comment on above: Performed By: #### T SH, LIVER, LIPID, BMP, T7 #### [facility] [address] [place] [address] Dr. Roberto Cabral EGFR-AF MOSOTHO >60 Normal >=60 [facility] Comment on above: Performed By: #### T SH, LIVER, LIPID, BMP, T7 #### [facility] [address] [place] [address] Dr. Roberto Cabral EGFR-NON AF MOSOTHO >60 Normal >=60 [facility] Comment on above: Performed By: #### T SH, LIVER, LIPID, BMP, T7 #### [facility] [address] [place] [address] Dr. Roberto Cabral Globulin (S) [Mass/Vol] 3.2 g/dL Normal [facility] Comment on above: Performed By: #### T SH, LIVER, LIPID, BMP, T7 #### [facility] [address] [place] [address] Dr. Roberto Cabral Glucose [Mass/Vol] 172 mg/dL Critically high 74-106 [facility] Comment on above: Performed By: #### T SH, LIVER, LIPID, BMP, T7 #### [facility] [address] [place] [address] Dr. Roberto Cabral Potassium [Moles/Vol] 4.6 mmol/L Normal 3.5-5.1 [facility] Comment on above: Performed By: #### T SH, LIVER, LIPID, BMP, T7 #### [facility] [address] [place] [address] Dr. Roberto Cabral Protein [Mass/Vol] 6.5 g/dL Normal 6.4-8.2 [facility] Comment on above: Performed By: #### T SH, LIVER, LIPID, BMP, T7 #### [facility] [address] [place] [address] Dr. Roberto Cabral Sodium [Moles/Vol] 142 mmol/L Normal 136-145 [facility] Comment on above: Performed By: #### T SH, LIVER, LIPID, BMP, T7 #### [facility] [address] [place] [address] Dr. Roberto Cabral Urea nitrogen [Mass/Vol] 14.0 mg/dL Normal 7.0-18.0 [facility] Comment on above: Performed By: #### T SH, LIVER, LIPID, BMP, T7 #### [facility] [address] [place] [address] Dr. Roberto Cabral Urea nitrogen/Creatinine [Mass ratio] 13.3 mg/mg Normal [facility] Comment on above: Performed By: #### T SH, LIVER, LIPID, BMP, T7 #### [facility] [address] [place] [address] Dr. Roberto Cabral CBC AUTO DIFFon 12-11-2021 BASO # 0.1 103/ul Normal 0.0-0.1 [facility] Comment on above: Performed By: #### T SH, LIVER, LIPID, BMP, T7 #### [facility] [address] [place] [address] Dr. Roberto Cabral Basophils/100 WBC (Bld) 0.3 % Normal 0.2-2.0 [facility] Comment on above: Performed By: #### T SH, LIVER, LIPID, BMP, T7 #### [facility] [address] [place] [address] Dr. Roberto Cabral EO # 0.7 103/ul Normal 0.0-0.7 [facility] Comment on above: Performed By: #### T SH, LIVER, LIPID, BMP, T7 #### [facility] [address] [place] [address] Dr. Roberto Cabral Eosinophils/100 WBC (Bld) 4.5 % Normal 0.9-7.0 [facility] Comment on above: Performed By: #### T SH, LIVER, LIPID, BMP, T7 #### [facility] [address] [place] [address] Dr. Roberto Cabral Erythrocyte distribution width (RBC) [Ratio] 15.7 % Critically high 11.0-15.0 [facility] Comment on above: Performed By: #### T SH, LIVER, LIPID, BMP, T7 #### [facility] [address] [place] [address] Dr. Roberto Cabral Hematocrit (Bld) [Volume fraction] 33.3 % Critically low 42.0-54.0 The [facility] Comment on above: Performed By: #### T SH, LIVER, LIPID, BMP, T7 #### [facility] [address] [place] [address] Dr. Roberto Cabral Hemoglobin (Bld) [Mass/Vol] 10.3 g/dL Critically low 14.0-18.0 The [facility] Comment on above: Performed By: #### T SH, LIVER, LIPID, BMP, T7 #### [facility] [address] [address] [address] Roberto Cabral IG # 0.08 10e3/ul Critically high 0.00-0.03 [facility] Comment on above: Performed By: #### T SH, LIVER, LIPID, BMP, T7 #### [facility] [address] [place] [address] Dr. Roberto Cabral IG % 0.5 % Normal 0.0-0.5 [facility] Comment on above: Performed By: #### T SH, LIVER, LIPID, BMP, T7 #### [facility] [address] [place] [address] Dr. Roberto Cabral LYMPH # 1.3 103/ul Normal 1.2-3.8 [facility] Comment on above: Performed By: #### T SH, LIVER, LIPID, BMP, T7 #### [facility] [address] [place] [address] Dr. Roberto Cabral Lymphocytes/100 WBC (Bld) 8.4 % Critically low 20.5-60.0 [facility] Comment on above: Performed By: #### T SH, LIVER, LIPID, BMP, T7 #### [facility] [address] [place] [address] Dr. Roberto Cabral MANUAL DIFF REQ NO Normal [facility] Comment on above: Performed By: #### T SH, LIVER, LIPID, BMP, T7 #### [facility] [address] [place] [address] Dr. Roberto Cabral MCH (RBC) [Entitic mass] 27.9 pg Normal 25.9-34.0 [facility] Comment on above: Performed By: #### T SH, LIVER, LIPID, BMP, T7 #### [facility] [address] [place] [address] Dr. Roberto Cabral MCHC (RBC) [Mass/Vol] 30.9 g/dL Normal 29.9-35.2 [facility] Comment on above: Performed By: #### T SH, LIVER, LIPID, BMP, T7 #### [facility] [address] [place] [address] Dr. Roberto Cabral MCV (RBC) [Entitic vol] 90.2 fL Normal 80.0-94.0 [facility] Comment on above: Performed By: #### T SH, LIVER, LIPID, BMP, T7 #### [facility] [address] [place] [address] Dr. Roberto Cabral MONO # 1.4 103/ul Critically high 0.3-0.8 [facility] Comment on above: Performed By: #### T SH, LIVER, LIPID, BMP, T7 #### [facility] [address] [place] [address] Dr. Roberto Cabral Monocytes/100 WBC (Bld) 8.9 % Normal 1.7-12.0 The [facility] Comment on above: Performed By: #### T SH, LIVER, LIPID, BMP, T7 #### [facility] [address] [place] [address] Dr. Roberto Cabral NEUT # 12.0 103/ul Critically high 1.4-6.5 [facility] Comment on above: Performed By: #### T SH, LIVER, LIPID, BMP, T7 #### [facility] [address] [place] [address] Dr. Roberto Cabral Neutrophils/100 WBC (Bld) 77.4 % Critically high 43.0-75.0 [facility] Comment on above: Performed By: #### T SH, LIVER, LIPID, BMP, T7 #### [facility] [address] [place] [address] Dr. Roberto Cabral Platelet mean volume (Bld) [Entitic vol] 10.3 fL Normal 9.5-13.5 The [facility] Comment on above: Performed By: #### T SH, LIVER, LIPID, BMP, T7 #### [facility] [address] [place] [address] Dr. Roberto Cabral PLT 286 103/ul Normal 150-450 [facility] Comment on above: Performed By: #### T SH, LIVER, LIPID, BMP, T7 #### [facility] [address] [place] [address] Dr. Roberto Cabral RBC 3.69 106/ul Critically low 4.70-6.10 [facility] Comment on above: Performed By: #### T SH, LIVER, LIPID, BMP, T7 #### [facility] [address] [address] [address] Roberto Cabral WBC 15.4 103/ul Critically high 4.0-11.0 [facility] Comment on above: Performed By: #### T SH, LIVER, LIPID, BMP, T7 #### [facility] [address] [address] [address] Roberto Cabral POINT OF CARE GLUCOSEon 12-01 Glucose [Mass/Vol] 122 mg/dL Critically high 74-106 [facility] Comment on above: Performed By: #### T SH, LIVER, LIPID, BMP, T7 #### [facility] [address] [place] [address] Dr. Roberto Cabral PROF 14(COMP METB)on 022 Albumin [Mass/Vol] 2.8 g/dL Critically low 3.4-5.0 [facility] Comment on above: Performed By: #### T SH, LIVER, LIPID, BMP, T7 #### [facility] [address] [address] [address] Roberto Cabral Albumin/Globulin [Mass ratio] 1.0 {ratio} Normal [facility] Comment on above: Performed By: #### T SH, LIVER, LIPID, BMP, T7 #### [facility] [address] [address] [address] Roberto Cabral ALP [Catalytic activity/Vol] 66 U/L Normal 46-116 [facility] Comment on above: Performed By: #### T SH, LIVER, LIPID, BMP, T7 #### [facility] [address] [address] [address] Roberto Cabral ALT [Catalytic activity/Vol] 15 U/L Critically low 16-63 [facility] Comment on above: Performed By: #### T SH, LIVER, LIPID, BMP, T7 #### [facility] [address] [address] [address] Roberto Cabral Anion gap [Moles/Vol] 15.2 mmol/L Normal [facility] Comment on above: Performed By: #### T SH, LIVER, LIPID, BMP, T7 #### [facility] [address] [address] [address] Roberto Cabral AST [Catalytic activity/Vol] 15 U/L Normal 15-37 [facility] Comment on above: Performed By: #### T SH, LIVER, LIPID, BMP, T7 #### [facility] [address] [place] [address] Dr. Roberto Cabral Bilirubin [Mass/Vol] 0.2 mg/dL Normal 0.2-1.0 [facility] Comment on above: Performed By: #### T SH, LIVER, LIPID, BMP, T7 #### [facility] [address] [place] [address] Dr. Roberto Cabral Calcium [Mass/Vol] 8.4 mg/dL Critically low 8.5-10.1 Th [facility] Comment on above: Performed By: #### T SH, LIVER, LIPID, BMP, T7 #### [facility] [address] [place] [address] Dr. Roberto Cabral Chloride [Moles/Vol] 114 mmol/L Critically high 98-107 [facility] Comment on above: Performed By: #### T SH, LIVER, LIPID, BMP, T7 #### [facility] [address] [place] [address] Dr. Roberto Cabral CO2 [Moles/Vol] 17.2 mmol/L Critically low 21.0-32.0 [facility] Comment on above: Performed By: #### T SH, LIVER, LIPID, BMP, T7 #### [facility] [address] [place] [address] Dr. Roberto Cabral Creatinine [Mass/Vol] 1.84 mg/dL Critically high 0.70-1.30 [facility] Comment on above: Performed By: #### T SH, LIVER, LIPID, BMP, T7 #### [facility] [address] [place] [address] Dr. Roberto Cabral EGFR-AF MOSOTHO 44 mL/min/1.73m2 Critically low >=60 [facility] Comment on above: Performed By: #### T SH, LIVER, LIPID, BMP, T7 #### [facility] [address] [address] [address] Roberto Cabral EGFR-NON AF MOSOTHO 36 mL/min/1.73m2 Critically low >=60 [facility] Comment on above: Performed By: #### T SH, LIVER, LIPID, BMP, T7 #### [facility] [address] [address] [address] Roberto Cabral Globulin (S) [Mass/Vol] 2.9 g/dL Normal [facility] Comment on above: Performed By: #### T SH, LIVER, LIPID, BMP, T7 #### [facility] [address] [place] [address] Dr. Roberto Cabral Glucose [Mass/Vol] 120 mg/dL Critically high 74-106 [facility] Comment on above: Performed By: #### T SH, LIVER, LIPID, BMP, T7 #### [facility] [address] [address] [address] Roberto Cabral Potassium [Moles/Vol] 5.4 mmol/L Critically high 3.5-5.1 [facility] Comment on above: Performed By: #### T SH, LIVER, LIPID, BMP, T7 #### [facility] [address] [place] [address] Dr. Roberto Cabral Protein [Mass/Vol] 5.7 g/dL Critically low 6.4-8.2 [facility] Comment on above: Performed By: #### T SH, LIVER, LIPID, BMP, T7 #### [facility] [address] [address] [address] Roberto Cabral Sodium [Moles/Vol] 141 mmol/L Normal 136-145 [facility] Comment on above: Performed By: #### T SH, LIVER, LIPID, BMP, T7 #### [facility] [address] [place] [address] Dr. Roberto Cabral Urea nitrogen [Mass/Vol] 56.0 mg/dL Critically high 7.0-18.0 [facility] Comment on above: Performed By: #### T SH, LIVER, LIPID, BMP, T7 #### [facility] [address] [address] [address] Roberto Cabral Urea nitrogen/Creatinine [Mass ratio] 30.4 mg/mg Normal [facility] Comment on above: Performed By: #### T SH, LIVER, LIPID, BMP, T7 #### [facility] [address] [address] [address] Roberto Cabral PROF CHEM 8 (BAS METB)on Anion gap [Moles/Vol] 13.3 mmol/L Normal [facility] Comment on above: Performed By: #### T SH, LIVER, LIPID, BMP, T7 #### [facility] [address] [place] [address] Dr. Roberto Cabral Calcium [Mass/Vol] 8.3 mg/dL Critically low 8.5-10.1 Th e [facility] Comment on above: Performed By: #### T SH, LIVER, LIPID, BMP, T7 #### [facility] [address] [place] [address] Dr. Roberto Cabral Chloride [Moles/Vol] 113 mmol/L Critically high 98-107 [facility] Comment on above: Performed By: #### T SH, LIVER, LIPID, BMP, T7 #### [facility] [address] [place] [address] Dr. Roberto Cabral CO2 [Moles/Vol] 19.4 mmol/L Critically low 21.0-32.0 [facility] Comment on above: Performed By: #### T SH, LIVER, LIPID, BMP, T7 #### [facility] [address] [place] [address] Dr. Roberto Cabral Creatinine [Mass/Vol] 1.49 mg/dL Critically high 0.70-1.30 [facility] Comment on above: Performed By: #### T SH, LIVER, LIPID, BMP, T7 #### [facility] [address] [place] [address] Dr. Roberto Cabral EGFR-AF MOSOTHO 56 mL/min/1.73m2 Critically low >=60 [facility] Comment on above: Performed By: #### T SH, LIVER, LIPID, BMP, T7 #### [facility] [address] [address] [address] Roberto Cabral EGFR-NON AF MOSOTHO 46 mL/min/1.73m2 Critically low >=60 [facility] Comment on above: Performed By: #### T SH, LIVER, LIPID, BMP, T7 #### [facility] [address] [address] [address] Roberto Cabral Glucose [Mass/Vol] 142 mg/dL Critically high 74-106 [facility] Comment on above: Performed By: #### T SH, LIVER, LIPID, BMP, T7 #### [facility] [address] [place] [address] Dr. Roberto Cabral Potassium [Moles/Vol] 5.7 mmol/L Critically high 3.5-5.1 [facility] Comment on above: Performed By: #### T SH, LIVER, LIPID, BMP, T7 #### [facility] [address] [place] [address] Dr. Roberto Cabral Sodium [Moles/Vol] 140 mmol/L Normal 136-145 [facility] Comment on above: Performed By: #### T SH, LIVER, LIPID, BMP, T7 #### [facility] [address] [place] [address] Dr. Roberto Cabral Urea nitrogen [Mass/Vol] 46.0 mg/dL Critically high 7.0-18.0 [facility] Comment on above: Performed By: #### T SH, LIVER, LIPID, BMP, T7 #### [facility] [address] [place] [address] Dr. Roberto Cabral Urea nitrogen/Creatinine [Mass ratio] 30.9 mg/mg Normal [facility] Comment on above: Performed By: #### T SH, LIVER, LIPID, BMP, T7 #### [facility] [address] [place] [address] Dr. Roberto Cabral BNPon 12-10-2021 Natriuretic peptide B (Bld) [Mass/Vol] 167.0 pg/mL Normal <=1,800.0 [facility] Comment on above: Performed By: #### T SH, LIVER, LIPID, BMP, T7 #### [facility] [address] [place] [address] Dr. Roberto Cabral CBC AUTO DIFFon 12-10-2021 BASO # 0.1 103/ul Normal 0.0-0.1 [facility] Comment on above: Performed By: #### T SH, LIVER, LIPID, BMP, T7 #### [facility] [address] [place] [address] Dr. Roberto Cabral Basophils/100 WBC (Bld) 0.3 % Normal 0.2-2.0 [facility] Comment on above: Performed By: #### T SH, LIVER, LIPID, BMP, T7 #### [facility] [address] [place] [address] Dr. Roberto Cabral EO # 0.4 103/ul Normal 0.0-0.7 [facility] Comment on above: Performed By: #### T SH, LIVER, LIPID, BMP, T7 #### [facility] [address] [place] [address] Dr. Roberto Cabral Eosinophils/100 WBC (Bld) 2.6 % Normal 0.9-7.0 [facility] Comment on above: Performed By: #### T SH, LIVER, LIPID, BMP, T7 #### [facility] [address] [place] [address] Dr. Roberto Cabral Erythrocyte distribution width (RBC) [Ratio] 15.7 % Critically high 11.0-15.0 [facility] Comment on above: Performed By: #### T SH, LIVER, LIPID, BMP, T7 #### [facility] [address] [place] [address] Dr. Roberto Cabral Hematocrit (Bld) [Volume fraction] 36.1 % Critically low 42.0-54.0 [facility] Comment on above: Performed By: #### T SH, LIVER, LIPID, BMP, T7 #### [facility] [address] [place] [address] Dr. Roberto Cabral Hemoglobin (Bld) [Mass/Vol] 11.5 g/dL Critically low 14.0-18.0 [facility] Comment on above: Performed By: #### T SH, LIVER, LIPID, BMP, T7 #### [facility] [address] [address] [address] Roberto Cabral IG # 0.07 10e3/ul Critically high 0.00-0.03 [facility] Comment on above: Performed By: #### T SH, LIVER, LIPID, BMP, T7 #### [facility] [address] [place] [address] Dr. Roberto Cabral IG % 0.4 % Normal 0.0-0.5 [facility] Comment on above: Performed By: #### T SH, LIVER, LIPID, BMP, T7 #### [facility] [address] [place] [address] Dr. Roberto Cabral LYMPH # 1.4 103/ul Normal 1.2-3.8 [facility] Comment on above: Performed By: #### T SH, LIVER, LIPID, BMP, T7 #### [facility] [address] [place] [address] Dr. Roberto Cabral Lymphocytes/100 WBC (Bld) 9.0 % Critically low 20.5-60.0 [facility] Comment on above: Performed By: #### T SH, LIVER, LIPID, BMP, T7 #### [facility] [address] [place] [address] Dr. Roberto Cabral MANUAL DIFF REQ NO Normal [facility] Comment on above: Performed By: #### T SH, LIVER, LIPID, BMP, T7 #### [facility] [address] [place] [address] Dr. Roberto Cabral MCH (RBC) [Entitic mass] 28.1 pg Normal 25.9-34.0 [facility] Comment on above: Performed By: #### T SH, LIVER, LIPID, BMP, T7 #### [facility] [address] [place] [address] Dr. Roberto Cabral MCHC (RBC) [Mass/Vol] 31.9 g/dL Normal 29.9-35.2 [facility] Comment on above: Performed By: #### T SH, LIVER, LIPID, BMP, T7 #### [facility] [address] [place] [address] Dr. Roberto Cabral MCV (RBC) [Entitic vol] 88.3 fL Normal 80.0-94.0 [facility] Comment on above: Performed By: #### T SH, LIVER, LIPID, BMP, T7 #### [facility] [address] [place] [address] Dr. Roberto Cabral MONO # 1.4 103/ul Critically high 0.3-0.8 [facility] Comment on above: Performed By: #### T SH, LIVER, LIPID, BMP, T7 #### [facility] [address] [place] [address] Dr. Roberto Cabral Monocytes/100 WBC (Bld) 8.8 % Normal 1.7-12.0 [facility] Comment on above: Performed By: #### T SH, LIVER, LIPID, BMP, T7 #### [facility] [address] [place] [address] Dr. Roberto Cabral NEUT # 12.3 103/ul Critically high 1.4-6.5 [facility] Comment on above: Performed By: #### T SH, LIVER, LIPID, BMP, T7 #### [facility] [address] [place] [address] Dr. Roberto Cabral Neutrophils/100 WBC (Bld) 78.9 % Critically high 43.0-75.0 [facility] Comment on above: Performed By: #### T SH, LIVER, LIPID, BMP, T7 #### [facility] [address] [place] [address] Dr. Roberto Cabral Platelet mean volume (Bld) [Entitic vol] 10.5 fL Normal 9.5-13.5 [facility] Comment on above: Performed By: #### T SH, LIVER, LIPID, BMP, T7 #### [facility] [address] [place] [address] Dr. Roberto Cabral PLT 316 103/ul Normal 150-450 [facility] Comment on above: Performed By: #### T SH, LIVER, LIPID, BMP, T7 #### [facility] [address] [place] [address] Dr. Roberto Cabral RBC 4.09 106/ul Critically low 4.70-6.10 [facility] Comment on above: Performed By: #### T SH, LIVER, LIPID, BMP, T7 #### [facility] [address] [place] [address] Dr. Roberto Cabral WBC 15.6 103/ul Critically high 4.0-11.0 [facility] Comment on above: Performed By: #### T SH, LIVER, LIPID, BMP, T7 #### [facility] [address] [place] [address] Dr. Roberto Cabral CULTURE URINEon 12-10-2021 CULTURE URINE Culture Observations : No growth Normal [facility] Comment on above: Performed By: #### T SH, LIVER, LIPID, BMP, T7 #### [facility] [address] [place] [address] Dr. Roberto Cabral ER URINE PROFILEon 2 Bilirubin Ql (U) Negative Normal NEGATIVE [facility] Comment on above: Performed By: #### E RUR #### [facility] [address] [place] [address] Dr. Roberto Cabral Clarity (U) CLEAR Normal CLEAR [facility] Comment on above: Performed By: #### E RUR #### [facility] [address] [place] [address] Dr. Roberto Cabral Color (U) LT. YELLOW Normal YELLOW [facility] Comment on above: Performed By: #### E RUR #### [facility] [address] [place] [address] Dr. Roberto TAPIA A micrscopic examination will be performed if indicated. Normal [facility] Comment on above: Performed By: #### E RUR #### [facility] [address] [place] [address] Dr. Roberto Cabral Glucose Ql (U) Negative Normal NEGATIVE [facility] Comment on above: Performed By: #### E RUR #### [facility] [address] [place] [address] Dr. Roberto Cabral Hemoglobin Ql (U) Negative Normal NEGATIVE [facility] Comment on above: Performed By: #### E RUR #### [facility] [address] [place] [address] Dr. Roberto Cabral Ketones Ql (U) Negative Normal NEGATIVE [facility] Comment on above: Performed By: #### E RUR #### [facility] [address] [place] [address] Dr. Roberto Cabral LEUKOCYTES Negative Normal NEGATIVE [facility] Comment on above: Performed By: #### E RUR #### [facility] [address] [place] [address] Dr. Roberto Cabral Nitrite Ql (U) Negative Normal NEGATIVE [facility] Comment on above: Performed By: #### E RUR #### [facility] [address] [place] [address] Dr. Roberto Cabral pH (U) 5.0 [pH] Normal 5-9 [facility] Comment on above: Performed By: #### E RUR #### [facility] [address] [place] [address] Dr. Roberto Cabral SPEC GRAVITY 1.015 Normal 1.005-<=1.025 [facility] Comment on above: Performed By: #### E RUR #### [facility] [address] [place] [address] Dr. Roberto Cabral UA PROTEIN Negative Normal NEGATIVE/ TRACE [facility] Comment on above: Performed By: #### E RUR #### [facility] [address] [place] [address] Dr. Roberto Cabral UR MICRO IND NOT INDICATED Normal [facility] Comment on above: Performed By: #### E RUR #### [facility] [address] [place] [address] Dr. Roberto Cabral Urobilinogen Qn (U) 0.2 {Noman'U}/dL Normal 0.2 - 1. 0 [facility] Comment on above: Performed By: #### E RUR #### [facility] [address] [place] [address] Dr. Roberto Cabral GI PANEL (PCR)on 12-10-2021 Adenovirus F 40/41 Not detected Normal NOT DETECTED [facility] Comment on above: Performed By: #### T SH, LIVER, LIPID, BMP, T7 #### [facility] [address] [address] [address] Roberto Cabral Astrovirus Not detected Normal NOT DETECTED [facility] Comment on above: Performed By: #### T SH, LIVER, LIPID, BMP, T7 #### [facility] [address] [address] [address] Roberto Cabral C. Diff toxin A/B Not detected Normal NOT DETECTED [facility] Comment on above: Performed By: #### T SH, LIVER, LIPID, BMP, T7 #### [facility] [address] [address] [address] Roberto Cabral Campylobacter Not detected Normal NOT DETECTED [facility] Comment on above: Performed By: #### T SH, LIVER, LIPID, BMP, T7 #### [facility] [address] [address] [address] Roberto Cabral Cryptosporidium Not detected Normal NOT DETECTED [facility] Comment on above: Performed By: #### T SH, LIVER, LIPID, BMP, T7 #### [facility] [address] [place] [address] Dr. Roberto Cabral Cyclos. Cayetanensis Not detected Normal NOT DETECTED The [facility] Comment on above: Performed By: #### T SH, LIVER, LIPID, BMP, T7 #### [facility] [address] [address] [address] Roberto Cabral E. Coli O157 Not Applicable Normal Not Applicable The [facility] Comment on above: Performed By: #### T SH, LIVER, LIPID, BMP, T7 #### [facility] [address] [address] [address] Roberto Cabral E. histolytica Not detected Normal NOT DETECTED [facility] Comment on above: Performed By: #### T SH, LIVER, LIPID, BMP, T7 #### [facility] [address] [address] [address] Roberto Cabral EAEC Not detected Normal NOT DETECTED [facility] Comment on above: Performed By: #### T SH, LIVER, LIPID, BMP, T7 #### [facility] [address] [address] [address] Roberto Cabral EIEC Not detected Normal NOT DETECTED [facility] Comment on above: Performed By: #### T SH, LIVER, LIPID, BMP, T7 #### [facility] [address] [address] [address] Roberto Cabral EPEC Not detected Normal NOT DETECTED [facility] Comment on above: Performed By: #### T SH, LIVER, LIPID, BMP, T7 #### [facility] [address] [address] [address] Roberto Cabral ETEC Not detected Normal NOT DETECTED [facility] Comment on above: Performed By: #### T SH, LIVER, LIPID, BMP, T7 #### [facility] [address] [address] [address] Roberto Mcgrathlia Not detected Normal NOT DETECTED [facility] Comment on above: Performed By: #### T SH, LIVER, LIPID, BMP, T7 #### [facility] [address] [address] [address] Roberto CARDENAS CONTROLS PASSED Normal The [facility] Comment on above: Performed By: #### T SH, LIVER, LIPID, BMP, T7 #### [facility] [address] [address] [address] Roberto MAXWELL JAIRO HEADER GI PANEL BACTERIA Normal T [facility] Comment on above: Performed By: #### T SH, LIVER, LIPID, BMP, T7 #### [facility] [address] [address] [address] Roberto IVEY ECOLI GI PANEL DIARRHEAGENIC E.COLI / SHIGELLA Normal The [facility] Comment on above: Performed By: #### T SH, LIVER, LIPID, BMP, T7 #### [facility] [address] [address] [address] Roberto IVEY INFO SEE BELOW Normal The [facility] Comment on above: Result Comment: EAEC - Enteroaggregative E. Coli EPEC- Enteropathogenic E. Coli ETEC- Enterotoxigenic E. Coli lt/st STEC- Shigella-like toxin-producing E. Coli stx1/stx2 EIEC- Shigella/Enteroinvasive E. Coli Performed By: #### T SH, LIVER, LIPID, BMP, T7 #### [facility] [address] [address] [address] Roberto IVEY PARASITES GI PANEL PARASITES Normal [facility] Comment on above: Performed By: #### T SH, LIVER, LIPID, BMP, T7 #### [facility] [address] [address] [address] Roberto IVEY VIRUS GI PANEL VIRUSES Normal [facility] Comment on above: Performed By: #### T SH, LIVER, LIPID, BMP, T7 #### [facility] [address] [address] [address] Roberto Cabral Norovirus GI/GII Not detected Normal NOT DETECTED The [facility] Comment on above: Performed By: #### T SH, LIVER, LIPID, BMP, T7 #### [facility] [address] [address] [address] Roberto Cabral P. Shigelloides Not detected Normal NOT DETECTED [facility] Comment on above: Performed By: #### T SH, LIVER, LIPID, BMP, T7 #### [facility] [address] [address] [address] Roberto Cabral Rotavirus A Not detected Normal NOT DETECTED [facility] Comment on above: Performed By: #### T SH, LIVER, LIPID, BMP, T7 #### [facility] [address] [address] [address] Roberto Cabral Salmonella Not detected Normal NOT DETECTED [facility] Comment on above: Performed By: #### T SH, LIVER, LIPID, BMP, T7 #### [facility] [address] [address] [address] Roberto Cabral Sapovirus Detected Abnormal NOT DETECTED The [facility] Comment on above: Performed By: #### T SH, LIVER, LIPID, BMP, T7 #### [facility] [address] [address] [address] Roberto Cabral STEC Not detected Normal NOT DETECTED [facility] Comment on above: Performed By: #### T SH, LIVER, LIPID, BMP, T7 #### [facility] [address] [place] [address] Dr. Roberto Cabral Vibrio Not detected Normal NOT DETECTED [facility] Comment on above: Performed By: #### T SH, LIVER, LIPID, BMP, T7 #### [facility] [address] [place] [address] Dr. Roberto Cabral Vibrio Cholera Not detected Normal NOT DETECTED [facility] Comment on above: Performed By: #### T SH, LIVER, LIPID, BMP, T7 #### [facility] [address] [place] [address] Dr. Roberto Cabral Y. Enterocolitica Not detected Normal NOT DETECTED The [facility] Comment on above: Performed By: #### T SH, LIVER, LIPID, BMP, T7 #### [facility] [address] [place] [address] Dr. Roberto Cabral POINT OF CARE GLUCOSEon 12-01 0-2021 Glucose [Mass/Vol] 73 mg/dL Critically low 74-106 Th [facility] Comment on above: Performed By: #### P OCGLUC #### [facility] [address] [place] [address] Dr. Roberto Cabral Glucose [Mass/Vol] 69 mg/dL Critically low 74-106 Th [facility] Comment on above: Performed By: #### T SH, LIVER, LIPID, BMP, T7 #### [facility] [address] [place] [address] Dr. Roberto Cabral Glucose [Mass/Vol] 99 mg/dL Normal 74-106 [facility] Comment on above: Performed By: #### P OCGLUC #### [facility] [address] [place] [address] Dr. Roberto Cabral Glucose [Mass/Vol] 67 mg/dL Critically low 74-106 Th [facility] Comment on above: Performed By: #### T SH, LIVER, LIPID, BMP, T7 #### [facility] [address] [address] [address] Roberto Cabral Glucose [Mass/Vol] 74 mg/dL Normal 74-106 [facility] Comment on above: Performed By: #### P OCGLUC #### [facility] [address] [address] [address] Roberto Cabral Glucose [Mass/Vol] 55 mg/dL Critically low 74-106 Th [facility] Comment on above: Performed By: #### T SH, LIVER, LIPID, BMP, T7 #### [facility] [address] [place] [address] Dr. Roberto Cabral PROF 14(COMP METB)on 022 Albumin [Mass/Vol] 3.1 g/dL Critically low 3.4-5.0 [facility] Comment on above: Performed By: #### T SH, LIVER, LIPID, BMP, T7 #### [facility] [address] [place] [address] Dr. Roberto Cabral Albumin/Globulin [Mass ratio] 0.9 {ratio} [facility] Comment on above: Performed By: #### T SH, LIVER, LIPID, BMP, T7 #### [facility] [address] [address] [address] Roberto Cabral ALP [Catalytic activity/Vol] 73 U/L Normal 46-116 [facility] Comment on above: Performed By: #### T SH, LIVER, LIPID, BMP, T7 #### [facility] [address] [place] [address] Dr. Roberto Cabral ALT [Catalytic activity/Vol] 17 U/L Normal 16-63 [facility] Comment on above: Performed By: #### T SH, LIVER, LIPID, BMP, T7 #### [facility] [address] [address] [address] Roberto Cabral Anion gap [Moles/Vol] 17.7 mmol/L Normal [facility] Comment on above: Performed By: #### T SH, LIVER, LIPID, BMP, T7 #### [facility] [address] [address] [address] Roberto Cabral AST [Catalytic activity/Vol] 13 U/L Critically low 15-37 [facility] Comment on above: Performed By: #### T SH, LIVER, LIPID, BMP, T7 #### [facility] [address] [place] [address] Dr. Roberto Cabral Bilirubin [Mass/Vol] 0.2 mg/dL Normal 0.2-1.0 [facility] Comment on above: Performed By: #### T SH, LIVER, LIPID, BMP, T7 #### [facility] [address] [place] [address] Dr. Roberto Cabral Calcium [Mass/Vol] 8.7 mg/dL Normal 8.5-10.1 [facility] Comment on above: Performed By: #### T SH, LIVER, LIPID, BMP, T7 #### [facility] [address] [place] [address] Dr. Roberto Cabral Chloride [Moles/Vol] 110 mmol/L Critically high 98-107 [facility] Comment on above: Performed By: #### T SH, LIVER, LIPID, BMP, T7 #### [facility] [address] [place] [address] Dr. Roberto Cabral CO2 [Moles/Vol] 16.0 mmol/L Critically low 21.0-32.0 [facility] Comment on above: Performed By: #### T SH, LIVER, LIPID, BMP, T7 #### [facility] [address] [place] [address] Dr. Roberto Cabral Creatinine [Mass/Vol] 1.85 mg/dL Critically high 0.70-1.30 [facility] Comment on above: Performed By: #### T SH, LIVER, LIPID, BMP, T7 #### [facility] [address] [place] [address] Dr. Roberto Cabral EGFR-AF MOSOTHO 43 mL/min/1.73m2 Critically low >=60 [facility] Comment on above: Performed By: #### T SH, LIVER, LIPID, BMP, T7 #### [facility] [address] [place] [address] Dr. Roberto Cabral EGFR-NON AF MOSOTHO 36 mL/min/1.73m2 Critically low >=60 [facility] Comment on above: Performed By: #### T SH, LIVER, LIPID, BMP, T7 #### [facility] [address] [address] [address] Roberto Cabral Globulin (S) [Mass/Vol] 3.4 g/dL Normal [facility] Comment on above: Performed By: #### T SH, LIVER, LIPID, BMP, T7 #### [facility] [address] [address] [address] Roberto Cabral Glucose [Mass/Vol] 113 mg/dL Critically high 74-106 [facility] Comment on above: Performed By: #### T SH, LIVER, LIPID, BMP, T7 #### [facility] [address] [place] [address] Dr. Roberto Cabral Potassium [Moles/Vol] 4.7 mmol/L Normal 3.5-5.1 [facility] Comment on above: Performed By: #### T SH, LIVER, LIPID, BMP, T7 #### [facility] [address] [place] [address] Dr. Roberto Cabral Protein [Mass/Vol] 6.5 g/dL Normal 6.4-8.2 [facility] Comment on above: Performed By: #### T SH, LIVER, LIPID, BMP, T7 #### [facility] [address] [place] [address] Dr. Roberto Cabral Sodium [Moles/Vol] 139 mmol/L Normal 136-145 [facility] Comment on above: Performed By: #### T SH, LIVER, LIPID, BMP, T7 #### [facility] [address] [place] [address] Dr. Roberto Cabral Urea nitrogen [Mass/Vol] 66.0 mg/dL Critically high 7.0-18.0 [facility] Comment on above: Performed By: #### T SH, LIVER, LIPID, BMP, T7 #### [facility] [address] [place] [address] Dr. Roberto Cabral Urea nitrogen/Creatinine [Mass ratio] 35.7 mg/mg Normal [facility] Comment on above: Performed By: #### T SH, LIVER, LIPID, BMP, T7 #### [facility] [address] [place] [address] Dr. Roberto Cabral CBC AUTO DIFFon 12-09-2021 BASO # 0.0 103/ul Normal 0.0-0.1 [facility] Comment on above: Performed By: #### T SH, LIVER, LIPID, BMP, T7 #### [facility] [address] [place] [address] Dr. Roberto Cabral Basophils/100 WBC (Bld) 0.2 % Normal 0.2-2.0 [facility] Comment on above: Performed By: #### T SH, LIVER, LIPID, BMP, T7 #### [facility] [address] [place] [address] Dr. Roberto Cabral EO # 0.3 103/ul Normal 0.0-0.7 [facility] Comment on above: Performed By: #### T SH, LIVER, LIPID, BMP, T7 #### [facility] [address] [place] [address] Dr. Roberto Cabral Eosinophils/100 WBC (Bld) 1.7 % Normal 0.9-7.0 [facility] Comment on above: Performed By: #### T SH, LIVER, LIPID, BMP, T7 #### [facility] [address] [place] [address] Dr. Roberto Cabral Erythrocyte distribution width (RBC) [Ratio] 15.4 % Critically high 11.0-15.0 [facility] Comment on above: Performed By: #### T SH, LIVER, LIPID, BMP, T7 #### [facility] [address] [place] [address] Dr. Roberto Cabral Hematocrit (Bld) [Volume fraction] 40.2 % Critically low 42.0-54.0 [facility] Comment on above: Performed By: #### T SH, LIVER, LIPID, BMP, T7 #### [facility] [address] [place] [address] Dr. Roberto Cabral Hemoglobin (Bld) [Mass/Vol] 12.6 g/dL Critically low 14.0-18.0 [facility] Comment on above: Performed By: #### T SH, LIVER, LIPID, BMP, T7 #### [facility] [address] [address] [address] Roberto Cabral IG # 0.09 10e3/ul Critically high 0.00-0.03 [facility] Comment on above: Performed By: #### T SH, LIVER, LIPID, BMP, T7 #### [facility] [address] [place] [address] Dr. Roberto Cabral IG % 0.5 % Normal 0.0-0.5 [facility] Comment on above: Performed By: #### T SH, LIVER, LIPID, BMP, T7 #### [facility] [address] [place] [address] Dr. Roberto Cabral LYMPH # 1.5 103/ul Normal 1.2-3.8 [facility] Comment on above: Performed By: #### T SH, LIVER, LIPID, BMP, T7 #### [facility] [address] [place] [address] Dr. Roberto Cabral Lymphocytes/100 WBC (Bld) 8.0 % Critically low 20.5-60.0 [facility] Comment on above: Performed By: #### T SH, LIVER, LIPID, BMP, T7 #### [facility] [address] [place] [address] Dr. Roberto Cabral MANUAL DIFF REQ NO Normal [facility] Comment on above: Performed By: #### T SH, LIVER, LIPID, BMP, T7 #### [facility] [address] [place] [address] Dr. Roberto Cabral MCH (RBC) [Entitic mass] 28.0 pg Normal 25.9-34.0 [facility] Comment on above: Performed By: #### T SH, LIVER, LIPID, BMP, T7 #### [facility] [address] [place] [address] Dr. Roberto Cabral MCHC (RBC) [Mass/Vol] 31.3 g/dL Normal 29.9-35.2 [facility] Comment on above: Performed By: #### T SH, LIVER, LIPID, BMP, T7 #### [facility] [address] [place] [address] Dr. Roberto Cabral MCV (RBC) [Entitic vol] 89.3 fL Normal 80.0-94.0 [facility] Comment on above: Performed By: #### T SH, LIVER, LIPID, BMP, T7 #### [facility] [address] [place] [address] Dr. Roberto Cabral MONO # 1.5 103/ul Critically high 0.3-0.8 [facility] Comment on above: Performed By: #### T SH, LIVER, LIPID, BMP, T7 #### [facility] [address] [place] [address] Dr. Roberto Cabral Monocytes/100 WBC (Bld) 8.2 % Normal 1.7-12.0 [facility] Comment on above: Performed By: #### T SH, LIVER, LIPID, BMP, T7 #### [facility] [address] [place] [address] Dr. Roberto Cabral NEUT # 14.9 103/ul Critically high 1.4-6.5 [facility] Comment on above: Performed By: #### T SH, LIVER, LIPID, BMP, T7 #### [facility] [address] [place] [address] Dr. Roberto Cabral Neutrophils/100 WBC (Bld) 81.4 % Critically high 43.0-75.0 [facility] Comment on above: Performed By: #### T SH, LIVER, LIPID, BMP, T7 #### [facility] [address] [place] [address] Dr. Roberto Cabral Platelet mean volume (Bld) [Entitic vol] 10.0 fL Normal 9.5-13.5 [facility] Comment on above: Performed By: #### T SH, LIVER, LIPID, BMP, T7 #### [facility] [address] [place] [address] Dr. Roberto Cabral PLT 358 103/ul Normal 150-450 [facility] Comment on above: Performed By: #### T SH, LIVER, LIPID, BMP, T7 #### [facility] [address] [place] [address] Dr. Roberto Cabral RBC 4.50 106/ul Critically low 4.70-6.10 [facility] Comment on above: Performed By: #### T SH, LIVER, LIPID, BMP, T7 #### [facility] [address] [place], [place] [address] Dr. Roberto Cabral WBC 18.3 103/ul Critically high 4.0-11.0 [facility] Comment on above: Performed By: #### T SH, LIVER, LIPID, BMP, T7 #### [facility] [address] [place], [place] [address] ABD/PELVIS WO CONon [...] ORTIZ Date: 2021-12-09 20:39 Normal [facility]on SARS-CoV-2 (COVID-19) RNA JOSÉ+probe Ql (Unsp spec) Not detected Normal NOT DETECTED [facility] Comment on above: Result Comment: When diagnostic [...] for this test is supported by the [place] of [employer] and Human Service's declaration that [...] SH, LIVER, LIPID, BMP, T7 #### [facility] [address] [place], [place] [address] Dr. Roberto Cabral LACTATE/LACTIC ACIDon 2021 Lactate [Moles/Vol] 1.1 mmol/L Normal 0.4-1.9 [facility] Comment on above: Performed By: #### T SH, LIVER, LIPID, BMP, T7 #### [facility] [address] [place], [place] [address] Dr. Roberto Cabral LIPASEon 12-09-2021 Lipase [Catalytic activity/Vol] 186.0 U/L Normal 73.0-393.0 [facility] Comment on above: Performed By: #### T SH, LIVER, LIPID, BMP, T7 #### [facility] [address] [address] [address] Roberto Cabral PROF 14(COMP METB)on 022 Albumin [Mass/Vol] 3.6 g/dL Normal 3.4-5.0 [facility] Comment on above: Performed By: #### T SH, LIVER, LIPID, BMP, T7 #### [facility] [address] [place] [address] Dr. Roberto Cabral Albumin/Globulin [Mass ratio] 1.0 {ratio} Normal [facility] Comment on above: Performed By: #### T SH, LIVER, LIPID, BMP, T7 #### [facility] [address] [place] [address] Dr. Roberto Cabral ALP [Catalytic activity/Vol] 79 U/L Normal 46-116 [facility] Comment on above: Performed By: #### T SH, LIVER, LIPID, BMP, T7 #### [facility] [address] [address] [address] Roberto Cabral ALT [Catalytic activity/Vol] 19 U/L Normal 16-63 [facility] Comment on above: Performed By: #### T SH, LIVER, LIPID, BMP, T7 #### [facility] [address] [address] [address] Roberto Cabral Anion gap [Moles/Vol] 20.6 mmol/L Normal [facility] Comment on above: Performed By: #### T SH, LIVER, LIPID, BMP, T7 #### [facility] [address] [address] [address] Roberto Cabral AST [Catalytic activity/Vol] 19 U/L Normal 15-37 [facility] Comment on above: Performed By: #### T SH, LIVER, LIPID, BMP, T7 #### [facility] [address] [place] [address] Dr. Roberto Cabral Bilirubin [Mass/Vol] 0.3 mg/dL Normal 0.2-1.0 [facility] Comment on above: Performed By: #### T SH, LIVER, LIPID, BMP, T7 #### [facility] [address] [address] [address] Roberto Cabral Calcium [Mass/Vol] 9.4 mg/dL Normal 8.5-10.1 [facility] Comment on above: Performed By: #### T SH, LIVER, LIPID, BMP, T7 #### [facility] [address] [address] [address] Roberto Cabral Chloride [Moles/Vol] 107 mmol/L Normal 98-107 [facility] Comment on above: Performed By: #### T SH, LIVER, LIPID, BMP, T7 #### [facility] [address] [place] [address] Dr. Roberto Cabral CO2 [Moles/Vol] 14.9 mmol/L Critically low 21.0-32.0 [facility] Comment on above: Performed By: #### T SH, LIVER, LIPID, BMP, T7 #### [facility] [address] [address] [address] Roberto Cabral Creatinine [Mass/Vol] 2.11 mg/dL Critically high 0.70-1.30 [facility] Comment on above: Performed By: #### T SH, LIVER, LIPID, BMP, T7 #### [facility] [address] [place] [address] Dr. Roberto Cabral EGFR-AF MOSOTHO 37 mL/min/1.73m2 Critically low >=60 [facility] Comment on above: Performed By: #### T SH, LIVER, LIPID, BMP, T7 #### [facility] [address] [address] [address] Roberto Cabral EGFR-NON AF [place] 31 mL/min/1.73m2 Critically low >=60 [facility] Comment on above: Performed By: #### T SH, LIVER, LIPID, BMP, T7 #### [facility] [address] [place] [address] Dr. Roberto Cabral Globulin (S) [Mass/Vol] 3.5 g/dL Normal [facility] Comment on above: Performed By: #### T SH, LIVER, LIPID, BMP, T7 #### [facility] [address] [address] [address] Roberto Cabral Glucose [Mass/Vol] 170 mg/dL Critically high 74-106 [facility] Comment on above: Performed By: #### T SH, LIVER, LIPID, BMP, T7 #### [facility] [address] [address] [address] Roberto Cabral Potassium [Moles/Vol] 5.5 mmol/L Critically high 3.5-5.1 [facility] Comment on above: Performed By: #### T SH, LIVER, LIPID, BMP, T7 #### [facility] [address] [place] [address] Dr. Roberto Cabral Protein [Mass/Vol] 7.1 g/dL Normal 6.4-8.2 [facility] Comment on above: Performed By: #### T SH, LIVER, LIPID, BMP, T7 #### [facility] [address] [place] [address] Dr. Roberto Cabral Sodium [Moles/Vol] 137 mmol/L Normal 136-145 [facility] Comment on above: Performed By: #### T SH, LIVER, LIPID, BMP, T7 #### [facility] [address] [place] [address] Dr. Roberto Cabral Urea nitrogen [Mass/Vol] 70.0 mg/dL Critically high 7.0-18.0 [facility] Comment on above: Performed By: #### T SH, LIVER, LIPID, BMP, T7 #### [facility] [address] [place] [address] Dr. Roberto Cabral Urea nitrogen/Creatinine [Mass ratio] 33.2 mg/mg Normal [facility] Comment on above: Performed By: #### T SH, LIVER, LIPID, BMP, T7 #### [facility] [address] [place] [address] Dr. Rboerto Cabral PROTIMEon 12-09-2021 INR Coag (PPP) [Relative time] 1.04 {INR} Normal [facility] Comment on above: Performed By: #### T SH, LIVER, LIPID, BMP, T7 #### [facility] [address] [place] [address] Dr. Roberto Cabral INR GUIDELINES SEE BELOW Normal [facility] Comment on above: Result Comment: NIKI RED INR: 2.0 - 3.0 CONDITIONS NOT LISTED BELOW 2.5 - 3.5 FOR PROSTHETIC HEART VALVE REPLACEMENT 2.5 - 3.5 RECURRENT THROMBOSIS Performed By: #### T SH, LIVER, LIPID, BMP, T7 #### [facility] [address] [place] [address] Dr. Roberto Cabral PT Coag (PPP) [Time] 11.2 s Normal 9.0-11.6 [facility] Comment on above: Performed By: #### T SH, LIVER, LIPID, BMP, T7 #### [facility] [address] [place] [address] Dr. Roberto Cabral PTTon 12-09-2021 aPTT Coag (Bld) [Time] 33.4 s Normal 22.3-36.2 [facility] Comment on above: Performed By: #### T SH, LIVER, LIPID, BMP, T7 #### [facility] [address] [place] [address] Dr. Roberto Cabral TROPONIN, HIGH SENSITIVITYon 12-09-2021 HSTROP 11.4 pg/mL Normal 4.0-76.1 [facility] Comment on above: Result Comment: CUT- OFF POINTS HAVE BEEN ESTABLISHED BASED ON THE FOURTH UNIVERSAL DEFINITIONS OF MYOCARDIAL INFARCTION. THE UPPER REFERENCE LIMIT (URL) OF TROPONIN, DEFINED THE 99TH PERCENTILE OF cTnI DISTRIBUTION IN A REFERENCE POPULATION, HAS BEEN CONFIRMED THE DECISION THRESHOLD FOR MT DIAGNOSIS. Performed By: #### T SH, LIVER, LIPID, BMP, T7 #### [facility] [address] [place] [address] Dr. Roberto Cabral POINT OF CARE GLUCOSEon 05- Glucose [Mass/Vol] 115 mg/dL Critically high 74-106 [facility] Comment on above: Performed By: #### T SH, LIVER, LIPID, BMP, T7 #### [facility] [address] [place], [place] [id number] Dr. Roberto Cabral Vital Signs Date Time Vital Sign Value Performing Clinician Rodney fowler 10-27-2021 14:12-0400 Blood Pressure Location Gwen N[facility] 10-27-2021 14:12-0400 Diastolic blood pressure 64 mm[Hg] [facility] 10-27-2021 14:12-0400 Heart rate 72 /min [facility] 10-27-2021 14:12-0400 Respiratory rate 16 /min Gwen NILL [facility] [place] 10-27-2021 14:12-0400 Systolic blood pressure 120 mm[Hg] [facility] Encounters Encounter Date Encounter Type Care Provider Facility Start: 10-14-2022 End: 10-15-[address] ADONAY ZHANG . Facility:[facility] Start: 09-01-2022 End: 09-02-[address] ADONAY ZHANG . Facility:[facility] Start: 02-21-2022 End: 02-21-[address] ADONAY ZHANG . Facility:[facility] Start: 12-14-2021 End: 12-15-[address] ADONAY ZHANG . Facility:[facility] Start: 12-10-2021 End: 12-11-[address] ADONAY ZHANG . Facility:[facility] Start: 11-17-2021 End: 11-17-[address] GWEN LORENZO . Facility:[facility] Start: 10-27-2021 End: 10-27-2021 Patient encounter procedure Gwen MATHIASL [facility] Start: 01-18-2017 End: 01-19-2017 Ambulatory DEFAULT PHYSICIAN Facility:[facility] Procedures Date Procedure Procedure Detail Performing Clinician Start: 10-14-[address] ANANT ZHANG . Comment on above: Performed By: #### T SH, LIVER, LIPID, BMP, T7 #### [facility] [address] [place] [address] [id number] [address] Roberto Cabral Start: 12-20-2016 Colonoscopy Gwen NI LL Cholecystectomy Gwen NILL Immunizations Immunization Date Immunization Notes Care Provider Fa [facility] 06-25-2021 SARS-CoV-2 (COVID-19 ) Ad26 vaccine, recombinant Gwen NILL [facility] [place] 09-22-2020 SARS-CoV-2 (COVID-19 ) Ad26 vaccine, recombinant Gwen NILL [facility] [place] 08-31-2020 SARS-CoV-2 (COVID-19 ) Ad26 vaccine, recombinant Gwen NILL [facility] [place] Payers Date Payer Category Payer Unknown [id number] 1945 Unknown [id number] 2.16.84 [id number] 1945 Unknown [id number] 2.16.84 [id number] 1945 Unknown [id number] 2.16.84 [id number] 1945 Unknown [id number] 2.16.84 [id number] 1945 Unknown [id number] 2.16.84 [id number] 1945 Unknown [id number] 2.16.84 [id number] Unknown Social History Date Type Detail Facility Start: 10-27-2021 Tobacco smoking status Ex-smoker ([facility] Tobacco smoking status Never [facility] Clinical Note 11-17-2021 Note Date & Type [...] health for screening. CC: Adonay Zhang M.D. [facility] Signed and Approved by: DR GWEN LORENZO . 11/24/2021 10:45:00 [facility] Evaluation + Plan note Note Date & Type Note Facility Evaluation + Plan note No data available for this section [facility] [place] [facility] Discharge instructions Note Date & Type Note Facility Hospital Discharge instructions No data available for this section [facility] [place] Summary Purpose Family History No Family History Records FoundNo Family History Records FoundNo Family History Records Found Advance Directives No Advanced Directives Records FoundNo Advanced Directives Records FoundNo Advanced Directives Records Found Additional Source Comments (unrecognized sect ion and content) No Status Records FoundNo Status Records FoundNo Status Records Found INFORMATION SOURCE (unrecogn ized section and content) DATE CREATED AUTHOR 12/27/2017 [facility] DATE CREATED AUTHOR AUTHOR'S ORGANIZ ATION 10/20/2022 [facility] DATE CREATED AUTHOR AUTHOR'S ORGANIZ ATION 08/11/2023 [facility] FOR RECORDS PERTAINING TO PATIENTS WHO [...] BE BASED ON THE PRIMARY CLINICAL RECORDS. [employer] [facility]. provides no warranty or guarantee of the accuracy or completeness of information in this document.
--- OUTSIDE RECORDS SUMMARY | 2023-08-12 12:49 | XMS_ITS | CCD ---
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; Translations: [DETENTION CURRENT USE OF ASPIRIN] Onset: 12-15-2021 Episodic Other aftercare (1 source) skilled nursing (current) use of oral hypoglycemic drugs; 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 Roberto Cabral Basophils/100 WBC (Bld) 0.7 % Normal 0.2-2.0 [facility] Comment on above: Performed By: #### T SH, LIVER, LIPID, BMP, T7 #### [facility] [address] [address] [address] Roberto Cabral EO # 0.5 103/ul Normal 0.0-0.7 [facility] Comment on above: Performed By: #### T SH, LIVER, LIPID, BMP, T7 #### [facility] [address] [address] [address] Roberto Cabral Eosinophils/100 WBC (Bld) 5.3 % Normal 0.9-7.0 [facility] Comment on above: Performed By: #### T SH, LIVER, LIPID, BMP, T7 #### [facility] [address] [place] [address] Dr. Roberto Cabral Erythrocyte distribution width (RBC) [Ratio] 15.8 % Critically high 11.0-15.0 [facility] Comment on above: Performed By: #### T SH, LIVER, LIPID, BMP, T7 #### [facility] [address] [place], [place] [id number] Dr. Roberto Cabral Hematocrit (Bld) [Volume fraction] 34.4 % Critically low 42.0-54.0 [facility] Comment on above: Performed By: #### T SH, LIVER, LIPID, BMP, T7 #### [facility] [address] [place] [address] Dr. Roberto Cabral Hemoglobin (Bld) [Mass/Vol] 10.2 g/dL Critically low 14.0-18.0 [facility] Comment on above: Performed By: #### T SH, LIVER, LIPID, BMP, T7 #### [facility] [address] [place] [address] Dr. Roberto Cabral IG # 0.03 10e3/ul Normal 0.00-0.03 [facility] Comment on above: Performed By: #### T SH, LIVER, LIPID, BMP, T7 #### [facility] [address] [place] [address] Dr. Roberto Cabral IG % 0.3 % Normal 0.0-0.5 [facility] Comment on above: Performed By: #### T SH, LIVER, LIPID, BMP, T7 #### [facility] [address] [place] [address] Dr. Roberto Cabral LYMPH # 1.9 103/ul Normal 1.2-3.8 [facility] Comment on above: Performed By: #### T SH, LIVER, LIPID, BMP, T7 #### [facility] [address] [place] [address] Dr. Roberto Cabral Lymphocytes/100 WBC (Bld) 21.0 % Normal 20.5-60.0 [facility] Comment on above: Performed By: #### T SH, LIVER, LIPID, BMP, T7 #### [facility] [address] [place] [address] Dr. Roberto Cabral MANUAL DIFF REQ NO Normal [facility] Comment on above: Performed By: #### T SH, LIVER, LIPID, BMP, T7 #### [facility] [address] [place] [address] Dr. Roberto Cabral MCH (RBC) [Entitic mass] 22.7 pg Critically low 25.9-34.0 [facility] Comment on above: Performed By: #### T SH, LIVER, LIPID, BMP, T7 #### [facility] [address] [place] [address] Dr. Roberto Cabral MCHC (RBC) [Mass/Vol] 29.7 g/dL Critically low 29.9-35.2 [facility] Comment on above: Performed By: #### T SH, LIVER, LIPID, BMP, T7 #### [facility] [address] [address] [address] Roberto Cabral MCV (RBC) [Entitic vol] 76.6 fL Critically low 80.0-94.0 [facility] Comment on above: Performed By: #### T SH, LIVER, LIPID, BMP, T7 #### [facility] [address] [place] [address] Dr. Roberto Cabral MONO # 0.9 103/ul Critically high 0.3-0.8 [facility] Comment on above: Performed By: #### T SH, LIVER, LIPID, BMP, T7 #### [facility] [address] [place] [address] Dr. Roberto Cabral Monocytes/100 WBC (Bld) 10.0 % Normal 1.7-12.0 [facility] Comment on above: Performed By: #### T SH, LIVER, LIPID, BMP, T7 #### [facility] [address] [place] [address] Dr. Roberto Cabral NEUT # 5.7 103/ul Normal 1.4-6.5 [facility] Comment on above: Performed By: #### T SH, LIVER, LIPID, BMP, T7 #### [facility] [address] [address] [address] Roberto Cabral Neutrophils/100 WBC (Bld) 62.7 % Normal 43.0-75.0 [facility] Comment on above: Performed By: #### T SH, LIVER, LIPID, BMP, T7 #### [facility] [address] [address] [address] Roberto Cabral Platelet mean volume (Bld) [Entitic vol] 9.8 fL Normal 9.5-13.5 [facility] Comment on above: Performed By: #### T SH, LIVER, LIPID, BMP, T7 #### [facility] [address] [address] [address] Roberto Cabral PLT 290 103/ul Normal 150-450 [facility] Comment on above: Performed By: #### T SH, LIVER, LIPID, BMP, T7 #### [facility] [address] [address] [address] Roberto Cabral RBC 4.49 106/ul Critically low 4.70-6.10 [facility] Comment on above: Performed By: #### T SH, LIVER, LIPID, BMP, T7 #### [facility] [address] [address] [address] Roberto Cabral WBC 9.1 103/ul Normal 4.0-11.0 [facility] Comment on above: Performed By: #### T SH, LIVER, LIPID, BMP, T7 #### [facility] [address] [place] [address] Dr. Roberto Cabral FREE THYROXINE INDEX T7on FTI 2.73 Normal 1.30-4.50 [facility] Comment on above: Performed By: #### T SH, LIVER, LIPID, BMP, T7 #### [facility] [address] [place] [address] Dr. Roberto Cabral T3U 35.0 % Normal 33.0-40.0 [facility] Comment on above: Performed By: #### T SH, LIVER, LIPID, BMP, T7 #### [facility] [address] [address] [address] Roberto Cabral T4 [Mass/Vol] 7.80 ug/dL Normal 4.50-12.10 [facility] Comment on above: Performed By: #### T SH, LIVER, LIPID, BMP, T7 #### [facility] [address] [place] [address] Dr. Roberto Cabral GLYCOHEMOGLOBIN A1Con 2022 ADA RECOMMENDATION SEE BELOW Normal [facility] Comment on above: Result Comment: ADA RECOMMENDED LIMIT 4.0 - 6.0 ADA THERAPEUTIC TARGET < 7.0 ACTION SUGGESTED > 7.0 Performed By: #### A 1C #### [facility] [address] [place] [address] Dr. Roberto Cabral Glucose [Mass/Vol] 126 mg/dL Normal [facility] Comment on above: Performed By: #### A 1C #### [facility] [address] [address] [address] Roberto Cabral HbA1c (Bld) [Mass fraction] 6.0 % Normal 4.5-6.2 [facility] Comment on above: Performed By: #### A 1C #### [facility] [address] [place] [address] Dr. Roberto Cabral LIPID PROFILEon 10-14-2022 CHOL-HDL RATIO NORM SEE BELOW Normal [facility] Comment on above: Result Comment: 3.3 - 4.4 LOW RISK 4.4 - 7.1 AVERAGE RISK 7.1 - 11.0 MODERATE RISK >11.0 HIGH RISK Performed By: #### T SH, LIVER, LIPID, BMP, T7 #### [facility] [address] [place] [address] Dr. Roberto Cabral Cholesterol [Mass/Vol] 129 mg/dL Normal <=200 [facility] Comment on above: Performed By: #### T SH, LIVER, LIPID, BMP, T7 #### [facility] [address] [place] [address] Dr. Roberto Cabral Cholesterol in HDL [Mass/Vol] 45 mg/dL Normal 40-60 [facility] Comment on above: Performed By: #### T SH, LIVER, LIPID, BMP, T7 #### [facility] [address] [address] [address] Roberto Cabral Cholesterol in LDL [Mass/Vol] 62.4 mg/dL Normal [facility] Comment on above: Performed By: #### T SH, LIVER, LIPID, BMP, T7 #### [facility] [address] [place] [address] Dr. Roberto Cabral Cholesterol.total/Ch olesterol in HDL [Mass ratio] 2.9 {ratio} Normal [facility] Comment on above: Performed By: #### T SH, LIVER, LIPID, BMP, T7 #### [facility] [address] [address] [address] Roberto Cabral HDL NORMAL > or = 60 mg/dl - LO W CARDIOVASCULAR RISK <40 mg/dl - HIGH CARDIOVASCULAR RISK Normal [facility] Comment on above: Performed By: #### T SH, LIVER, LIPID, BMP, T7 #### [facility] [address] [address] [address] Roberto Cabral LDL CALC NORMAL SEE BELOW Normal [facility] Comment on above: Result Comment: <100 mg/dl OPTIMAL 100 - 129 mg/dl NEAR OR ABOVE OPTIMAL 130 - 159 mg/dl BORDERLINE HIGH 160 - 189 mg/dl HIGH >190 mg/dl VERY HIGH Performed By: #### T SH, LIVER, LIPID, BMP, T7 #### [facility] [address] [address] [address] Roberto Cabral Triglyceride [Mass/Vol] 108 mg/dL Normal <=150 [facility] Comment on above: Performed By: #### T SH, LIVER, LIPID, BMP, T7 #### [facility] [address] [address] [address] Roberto Cabral VLDL CALC 21.6 mg/dL Normal [facility] Comment on above: Performed By: #### T SH, LIVER, LIPID, BMP, T7 #### [facility] [address] [address] [address] Roberto Cabral LIVER PROFILEon 10-14-2022 Albumin [Mass/Vol] 3.6 g/dL Normal 3.4-5.0 [facility] Comment on above: Performed By: #### T SH, LIVER, LIPID, BMP, T7 #### [facility] [address] [address] [address] Roberto Cabral Albumin/Globulin [Mass ratio] 1.0 {ratio} Normal [facility] Comment on above: Performed By: #### T SH, LIVER, LIPID, BMP, T7 #### [facility] [address] [address] [address] Roberto Cabral ALP [Catalytic activity/Vol] 80 U/L Normal 46-116 [facility] Comment on above: Performed By: #### T SH, LIVER, LIPID, BMP, T7 #### [facility] [address] [address] [address] Roberto Cabral ALT [Catalytic activity/Vol] 21 U/L Normal 16-63 [facility] Comment on above: Performed By: #### T SH, LIVER, LIPID, BMP, T7 #### [facility] [address] [address] [address] Roberto Cabral AST [Catalytic activity/Vol] 14 U/L Critically low 15-37 [facility] Comment on above: Performed By: #### T SH, LIVER, LIPID, BMP, T7 #### [facility] [address] [place] [address] Dr. Roberto Cabral BILI, CONJUGATED 0.1 mg/dL Normal 0.0-0.2 [facility] Comment on above: Performed By: #### T SH, LIVER, LIPID, BMP, T7 #### [facility] [address] [place] [address] Dr. Roberto Cabral Bilirubin [Mass/Vol] 0.2 mg/dL Normal 0.2-1.0 [facility] Comment on above: Performed By: #### T SH, LIVER, LIPID, BMP, T7 #### [facility] [address] [place] [address] Dr. Roberto Cabral Globulin (S) [Mass/Vol] 3.6 g/dL Normal [facility] Comment on above: Performed By: #### T SH, LIVER, LIPID, BMP, T7 #### [facility] [address] [place] [address] Dr. Roberto Cabral Protein [Mass/Vol] 7.2 g/dL Normal 6.4-8.2 [facility] Comment on above: Performed By: #### T SH, LIVER, LIPID, BMP, T7 #### [facility] [address] [place] [address] Dr. Roberto Cabral PROF CHEM 8 (BAS METB)on Anion gap [Moles/Vol] 13.9 mmol/L Normal [facility] Comment on above: Performed By: #### T SH, LIVER, LIPID, BMP, T7 #### [facility] [address] [address] [address] Roberto Cabral Calcium [Mass/Vol] 9.2 mg/dL Normal 8.5-10.1 [facility] Comment on above: Performed By: #### T SH, LIVER, LIPID, BMP, T7 #### [facility] [address] [address] [address] Roberto Cabral Chloride [Moles/Vol] 110 mmol/L Critically high 98-107 [facility] Comment on above: Performed By: #### T SH, LIVER, LIPID, BMP, T7 #### [facility] [address] [place] [address] Dr. Roberto Cabral CO2 [Moles/Vol] 26.2 mmol/L Normal 21.0-32.0 [facility] Comment on above: Performed By: #### T SH, LIVER, LIPID, BMP, T7 #### [facility] [address] [place] [address] Dr. Roberto Cabral Creatinine [Mass/Vol] 1.02 mg/dL Normal 0.70-1.30 [facility] Comment on above: Performed By: #### T SH, LIVER, LIPID, BMP, T7 #### [facility] [address] [place] [address] Dr. Roberto Cabral EGFR-AF MICRONESIAN >60 Normal >=[address] [facility] Comment on above: Performed By: #### T SH, LIVER, LIPID, BMP, T7 #### [facility] [address] [place] [address] Dr. Roberto Cabral EGFR-NON AF MICRONESIAN >60 Normal >=60 [facility] Comment on above: Performed By: #### T SH, LIVER, LIPID, BMP, T7 #### [facility] [address] [place] [address] Dr. Roberto Cabral Glucose [Mass/Vol] 120 mg/dL Critically high 74-106 [facility] Comment on above: Performed By: #### T SH, LIVER, LIPID, BMP, T7 #### [facility] [address] [address] [address] Roberto Cabral Potassium [Moles/Vol] 4.1 mmol/L Normal 3.5-5.1 [facility] Comment on above: Performed By: #### T SH, LIVER, LIPID, BMP, T7 #### [facility] [address] [place] [address] Dr. Roberto Cabral Sodium [Moles/Vol] 146 mmol/L Critically high 136-145 [facility] Comment on above: Performed By: #### T SH, LIVER, LIPID, BMP, T7 #### [facility] [address] [place] [address] Dr. Roberto Cabral Urea nitrogen [Mass/Vol] 26.0 mg/dL Critically high 7.0-18.0 [facility] Comment on above: Performed By: #### T SH, LIVER, LIPID, BMP, T7 #### [facility] [address] [place] [address] Dr. Roberto Cabral Urea nitrogen/Creatinine [Mass ratio] 25.5 mg/mg Normal [facility] Comment on above: Performed By: #### T SH, LIVER, LIPID, BMP, T7 #### [facility] [address] [place] [address] Dr. Roberto Cabral TSHon 10-14-2022 TSH 1.674 uIU/mL Normal 0.358-3.740 [facility] Comment on above: Performed By: #### T SH, LIVER, LIPID, BMP, T7 #### [facility] [address] [place] [address] Dr. Roberto Cabral Covid-19 PCR [facility]on 02[facility]01 SARS-CoV-2 (COVID-19) RNA JOSÉ+probe Ql (Unsp spec) Detected Critically abnormal NOT DETECTED [facility] Comment on above: Result Comment: This test is not yet approved or cleared by the [place] FDA. When there are no FDA-approved or cleared tests available, and other criteria are met, FDA can make tests available under an emergency access mechanism called an Emergency Use Authorization (EUA). The EUA for this test is supported by the Electrical Apprentice of Health and Human Service's (HHS's) declaration [...] T SH, LIVER, LIPID, BMP, T7 #### [facility] [address] [place] [address] Dr. Roberto Cabral PROF 14(COMP METB)on 022 Albumin [Mass/Vol] 3.3 g/dL Critically low 3.4-5.0 [facility] Comment on above: Performed By: #### T SH, LIVER, LIPID, BMP, T7 #### [facility] [address] [place] [address] Dr. Roberto Cabral Albumin/Globulin [Mass ratio] 1.0 {ratio} Normal [facility] Comment on above: Performed By: #### T SH, LIVER, LIPID, BMP, T7 #### [facility] [address] [place] [address] Dr. Roberto Cabral ALP [Catalytic activity/Vol] 95 U/L Normal 46-116 [facility] Comment on above: Performed By: #### T SH, LIVER, LIPID, BMP, T7 #### [facility] [address] [place] [address] Dr. Roberto Cabral ALT [Catalytic activity/Vol] 22 U/L Normal 16-63 [facility] Comment on above: Performed By: #### T SH, LIVER, LIPID, BMP, T7 #### [facility] [address] [place] [address] Dr. Roberto Cabral Anion gap [Moles/Vol] 14.0 mmol/L Normal [facility] Comment on above: Performed By: #### T SH, LIVER, LIPID, BMP, T7 #### [facility] [address] [place] [address] Dr. Roberto Cabral AST [Catalytic activity/Vol] 12 U/L Critically low 15-37 [facility] Comment on above: Performed By: #### T SH, LIVER, LIPID, BMP, T7 #### [facility] [address] [place] [address] Dr. Roberto Cabral Bilirubin [Mass/Vol] 0.2 mg/dL Normal 0.2-1.0 [facility] Comment on above: Performed By: #### T SH, LIVER, LIPID, BMP, T7 #### [facility] [address] [address] [address] Roberto Cabral Calcium [Mass/Vol] 8.6 mg/dL Normal 8.5-10.1 [facility] Comment on above: Performed By: #### T SH, LIVER, LIPID, BMP, T7 #### [facility] [address] [place] [address] Dr. Roberto Cabral Chloride [Moles/Vol] 110 mmol/L Critically high 98-107 [facility] Comment on above: Performed By: #### T SH, LIVER, LIPID, BMP, T7 #### [facility] [address] [place] [address] Dr. Roberto Cabral CO2 [Moles/Vol] 22.6 mmol/L Normal 21.0-32.0 [facility] Comment on above: Performed By: #### T SH, LIVER, LIPID, BMP, T7 #### [facility] [address] [place] [address] Dr. Roberto Cabral Creatinine [Mass/Vol] 1.05 mg/dL Normal 0.70-1.30 [facility] Comment on above: Performed By: #### T SH, LIVER, LIPID, BMP, T7 #### [facility] [address] [place] [address] Dr. Roberto Cabral EGFR-AF MICRONESIAN >60 Normal >=[address] [facility] Comment on above: Performed By: #### T SH, LIVER, LIPID, BMP, T7 #### [facility] [address] [place] [address] Dr. Robreto Cabral EGFR-NON AF MICRONESIAN >60 Normal >=60 [facility] Comment on above: Performed By: #### T SH, LIVER, LIPID, BMP, T7 #### [facility] [address] [place] [address] Dr. Roberto Cabral Globulin (S) [Mass/Vol] 3.2 g/dL Normal [facility] Comment on above: Performed By: #### T SH, LIVER, LIPID, BMP, T7 #### [facility] [address] [place] [address] Dr. Roberto Cabral Glucose [Mass/Vol] 172 mg/dL Critically high 74-106 [facility] Comment on above: Performed By: #### T SH, LIVER, LIPID, BMP, T7 #### [facility] [address] [place] [address] Dr. Roberto Cabral Potassium [Moles/Vol] 4.6 mmol/L Normal 3.5-5.1 [facility] Comment on above: Performed By: #### T SH, LIVER, LIPID, BMP, T7 #### [facility] [address] [place] [address] Dr. Roberto Cabral Protein [Mass/Vol] 6.5 g/dL Normal 6.4-8.2 [facility] Comment on above: Performed By: #### T SH, LIVER, LIPID, BMP, T7 #### [facility] [address] [place] [address] Dr. Roberto Cabral Sodium [Moles/Vol] 142 mmol/L Normal 136-145 [facility] Comment on above: Performed By: #### T SH, LIVER, LIPID, BMP, T7 #### [facility] [address] [place] [address] Dr. Roberto Cabral Urea nitrogen [Mass/Vol] 14.0 mg/dL Normal 7.0-18.0 [facility] Comment on above: Performed By: #### T SH, LIVER, LIPID, BMP, T7 #### [facility] [address] [place] [address] Dr. Roberto Cabral Urea nitrogen/Creatinine [Mass ratio] 13.3 mg/mg Normal [facility] Comment on above: Performed By: #### T SH, LIVER, LIPID, BMP, T7 #### [facility] [address] [place] [address] Dr. Roberto Cabral CBC AUTO DIFFon 12-11-2021 BASO # 0.1 103/ul Normal 0.0-0.1 [facility] Comment on above: Performed By: #### T SH, LIVER, LIPID, BMP, T7 #### [facility] [address] [place] [address] Dr. Roberto Cabral Basophils/100 WBC (Bld) 0.3 % Normal 0.2-2.0 [facility] Comment on above: Performed By: #### T SH, LIVER, LIPID, BMP, T7 #### [facility] [address] [place] [address] Dr. Roberto Cabral EO # 0.7 103/ul Normal 0.0-0.7 [facility] Comment on above: Performed By: #### T SH, LIVER, LIPID, BMP, T7 #### [facility] [address] [place] [address] Dr. Roberto Cabral Eosinophils/100 WBC (Bld) 4.5 % Normal 0.9-7.0 [facility] Comment on above: Performed By: #### T SH, LIVER, LIPID, BMP, T7 #### [facility] [address] [place] [address] Dr. Roberto Cabral Erythrocyte distribution width (RBC) [Ratio] 15.7 % Critically high 11.0-15.0 [facility] Comment on above: Performed By: #### T SH, LIVER, LIPID, BMP, T7 #### [facility] [address] [place] [address] Dr. Roberto Cabral Hematocrit (Bld) [Volume fraction] 33.3 % Critically low 42.0-54.0 [facility] Comment on above: Performed By: #### T SH, LIVER, LIPID, BMP, T7 #### [facility] [address] [place] [address] Dr. Roberto Cabral Hemoglobin (Bld) [Mass/Vol] 10.3 g/dL Critically low 14.0-18.0 [facility] Comment on above: Performed By: #### T SH, LIVER, LIPID, BMP, T7 #### [facility] [address] [address] [address] Roberto Cabral IG # 0.08 10e3/ul Critically high 0.00-0.03 [facility] Comment on above: Performed By: #### T SH, LIVER, LIPID, BMP, T7 #### [facility] [address] [place] [address] Dr. Roberto Cabral IG % 0.5 % Normal 0.0-0.5 [facility] Comment on above: Performed By: #### T SH, LIVER, LIPID, BMP, T7 #### [facility] [address] [place] [address] Dr. Roberto Cabral LYMPH # 1.3 103/ul Normal 1.2-3.8 [facility] Comment on above: Performed By: #### T SH, LIVER, LIPID, BMP, T7 #### [facility] [address] [place] [address] Dr. Roberto Cabral Lymphocytes/100 WBC (Bld) 8.4 % Critically low 20.5-60.0 [facility] Comment on above: Performed By: #### T SH, LIVER, LIPID, BMP, T7 #### [facility] [address] [place] [address] Dr. Roberto Cabral MANUAL DIFF REQ NO Normal [facility] Comment on above: Performed By: #### T SH, LIVER, LIPID, BMP, T7 #### [facility] [address] [place] [address] Dr. Roberto Cabral MCH (RBC) [Entitic mass] 27.9 pg Normal 25.9-34.0 [facility] Comment on above: Performed By: #### T SH, LIVER, LIPID, BMP, T7 #### [facility] [address] [place] [address] Dr. Roberto Cabral MCHC (RBC) [Mass/Vol] 30.9 g/dL Normal 29.9-35.2 [facility] Comment on above: Performed By: #### T SH, LIVER, LIPID, BMP, T7 #### [facility] [address] [place] [address] Dr. Roberto Cabral MCV (RBC) [Entitic vol] 90.2 fL Normal 80.0-94.0 [facility] Comment on above: Performed By: #### T SH, LIVER, LIPID, BMP, T7 #### [facility] [address] [place] [address] Dr. Roberto Cabral MONO # 1.4 103/ul Critically high 0.3-0.8 [facility] Comment on above: Performed By: #### T SH, LIVER, LIPID, BMP, T7 #### [facility] [address] [place] [address] Dr. Roberto Cabral Monocytes/100 WBC (Bld) 8.9 % Normal 1.7-12.0 [facility] Comment on above: Performed By: #### T SH, LIVER, LIPID, BMP, T7 #### [facility] [address] [place] [address] Dr. Roberto Cabral NEUT # 12.0 103/ul Critically high 1.4-6.[address] [facility] Comment on above: Performed By: #### T SH, LIVER, LIPID, BMP, T7 #### [facility] [address] [place] [address] Dr. Roberto Cabral Neutrophils/100 WBC (Bld) 77.4 % Critically high 43.0-75.0 [facility] Comment on above: Performed By: #### T SH, LIVER, LIPID, BMP, T7 #### [facility] [address] [place] [address] Dr. Roberto Cabral Platelet mean volume (Bld) [Entitic vol] 10.3 fL Normal 9.5-13.5 [facility] Comment on above: Performed By: #### T SH, LIVER, LIPID, BMP, T7 #### [facility] [address] [place] [address] Dr. Roberto Cabral PLT 286 103/ul Normal 150-450 [facility] Comment on above: Performed By: #### T SH, LIVER, LIPID, BMP, T7 #### [facility] [address] [place] [address] Dr. Roberto Cabral RBC 3.69 106/ul Critically low 4.70-6.10 [facility] Comment on above: Performed By: #### T SH, LIVER, LIPID, BMP, T7 #### [facility] [address] [address] [address] Roberto Cabral WBC 15.4 103/ul Critically high 4.0-11.0 [facility] Comment on above: Performed By: #### T SH, LIVER, LIPID, BMP, T7 #### [facility] [address] [address] [address] Roberto Cabral POINT OF CARE GLUCOSEon 12-01 Glucose [Mass/Vol] 122 mg/dL Critically high 74-106 [facility] Comment on above: Performed By: #### T SH, LIVER, LIPID, BMP, T7 #### [facility] [address] [place] [address] Dr. Roberto Cabral PROF 14(COMP METB)on 022 Albumin [Mass/Vol] 2.8 g/dL Critically low 3.4-5.0 [facility] Comment on above: Performed By: #### T SH, LIVER, LIPID, BMP, T7 #### [facility] [address] [address] [address] Roberto Cabral Albumin/Globulin [Mass ratio] 1.0 {ratio} Normal [facility] Comment on above: Performed By: #### T SH, LIVER, LIPID, BMP, T7 #### [facility] [address] [address] [address] Roberto Cabral ALP [Catalytic activity/Vol] 66 U/L Normal 46-116 [facility] Comment on above: Performed By: #### T SH, LIVER, LIPID, BMP, T7 #### [facility] [address] [address] [address] Roberto Cabral ALT [Catalytic activity/Vol] 15 U/L Critically low 16-63 [facility] Comment on above: Performed By: #### T SH, LIVER, LIPID, BMP, T7 #### [facility] [address] [address] [address] Roberto Cabral Anion gap [Moles/Vol] 15.2 mmol/L Normal [facility] Comment on above: Performed By: #### T SH, LIVER, LIPID, BMP, T7 #### [facility] [address] [address] [address] Roberto Cabral AST [Catalytic activity/Vol] 15 U/L Normal 15-37 [facility] Comment on above: Performed By: #### T SH, LIVER, LIPID, BMP, T7 #### [facility] [address] [place] [address] Dr. Roebrto Cabral Bilirubin [Mass/Vol] 0.2 mg/dL Normal 0.2-1.0 [facility] Comment on above: Performed By: #### T SH, LIVER, LIPID, BMP, T7 #### [facility] [address] [place] [address] Dr. Roberto Cabral Calcium [Mass/Vol] 8.4 mg/dL Critically low 8.5-10.1 [facility] Comment on above: Performed By: #### T SH, LIVER, LIPID, BMP, T7 #### [facility] [address] [place] [address] Dr. Roberto Cabral Chloride [Moles/Vol] 114 mmol/L Critically high 98-107 [facility] Comment on above: Performed By: #### T SH, LIVER, LIPID, BMP, T7 #### [facility] [address] [place] [address] Dr. Roberto Cabral CO2 [Moles/Vol] 17.2 mmol/L Critically low 21.0-32.0 [facility] Comment on above: Performed By: #### T SH, LIVER, LIPID, BMP, T7 #### [facility] [address] [place] [address] Dr. Roberto Cabral Creatinine [Mass/Vol] 1.84 mg/dL Critically high 0.70-1.30 [facility] Comment on above: Performed By: #### T SH, LIVER, LIPID, BMP, T7 #### [facility] [address] [place] [address] Dr. Roberto Cabral EGFR-AF MICRONESIAN 44 mL/min/1.73m2 Critically low >=60 [facility] Comment on above: Performed By: #### T SH, LIVER, LIPID, BMP, T7 #### [facility] [address] [address] [address] Roberto Cabral EGFR-NON AF MICRONESIAN 36 mL/min/1.73m2 Critically low >=60 [facility] Comment on above: Performed By: #### T SH, LIVER, LIPID, BMP, T7 #### [facility] [address] [address] [address] Roberto Cabral Globulin (S) [Mass/Vol] 2.9 g/dL Normal [facility] Comment on above: Performed By: #### T SH, LIVER, LIPID, BMP, T7 #### [facility] [address] [place] [address] Dr. Roberto Cabral Glucose [Mass/Vol] 120 mg/dL Critically high 74-106 [facility] Comment on above: Performed By: #### T SH, LIVER, LIPID, BMP, T7 #### [facility] [address] [address] [address] Roberto Cabral Potassium [Moles/Vol] 5.4 mmol/L Critically high 3.5-5.1 [facility] Comment on above: Performed By: #### T SH, LIVER, LIPID, BMP, T7 #### [facility] [address] [place] [address] Dr. Roberto Cabral Protein [Mass/Vol] 5.7 g/dL Critically low 6.4-8.2 [facility] Comment on above: Performed By: #### T SH, LIVER, LIPID, BMP, T7 #### [facility] [address] [address] [address] Roberto Cabral Sodium [Moles/Vol] 141 mmol/L Normal 136-145 [facility] Comment on above: Performed By: #### T SH, LIVER, LIPID, BMP, T7 #### [facility] [address] [place] [address] Dr. Roberto Cabral Urea nitrogen [Mass/Vol] 56.0 mg/dL Critically high 7.0-18.0 [facility] Comment on above: Performed By: #### T SH, LIVER, LIPID, BMP, T7 #### [facility] [address] [address] [address] Roberto Cabral Urea nitrogen/Creatinine [Mass ratio] 30.4 mg/mg Normal [facility] Comment on above: Performed By: #### T SH, LIVER, LIPID, BMP, T7 #### [facility] [address] [address] [address] Roberto Cabral PROF CHEM 8 (BAS METB)on Anion gap [Moles/Vol] 13.3 mmol/L Normal [facility] Comment on above: Performed By: #### T SH, LIVER, LIPID, BMP, T7 #### [facility] [address] [place] [address] Dr. Roberto Cabral Calcium [Mass/Vol] 8.3 mg/dL Critically low 8.5-10.1 [facility] Comment on above: Performed By: #### T SH, LIVER, LIPID, BMP, T7 #### [facility] [address] [place] [address] Dr. Roberto Cabral Chloride [Moles/Vol] 113 mmol/L Critically high 98-107 [facility] Comment on above: Performed By: #### T SH, LIVER, LIPID, BMP, T7 #### [facility] [address] [place] [address] Dr. Roberto Cabral CO2 [Moles/Vol] 19.4 mmol/L Critically low 21.0-32.0 [facility] Comment on above: Performed By: #### T SH, LIVER, LIPID, BMP, T7 #### [facility] [address] [place] [address] Dr. Roberto Cabral Creatinine [Mass/Vol] 1.49 mg/dL Critically high 0.70-1.30 [facility] Comment on above: Performed By: #### T SH, LIVER, LIPID, BMP, T7 #### [facility] [address] [place] [address] Dr. Roberto Cabral EGFR-AF MICRONESIAN 56 mL/min/1.73m2 Critically low >=60 [facility] Comment on above: Performed By: #### T SH, LIVER, LIPID, BMP, T7 #### [facility] [address] [address] [address] Roberto Cabral EGFR-NON AF MICRONESIAN 46 mL/min/1.73m2 Critically low >=60 [facility] Comment on above: Performed By: #### T SH, LIVER, LIPID, BMP, T7 #### [facility] [address] [address] [address] Roberto Cabral Glucose [Mass/Vol] 142 mg/dL Critically high 74-106 [facility] Comment on above: Performed By: #### T SH, LIVER, LIPID, BMP, T7 #### [facility] [address] [place] [address] Dr. Roberto Cabral Potassium [Moles/Vol] 5.7 mmol/L Critically high 3.5-5.1 [facility] Comment on above: Performed By: #### T SH, LIVER, LIPID, BMP, T7 #### [facility] [address] [place] [address] Dr. Roberto Cabral Sodium [Moles/Vol] 140 mmol/L Normal 136-145 [facility] Comment on above: Performed By: #### T SH, LIVER, LIPID, BMP, T7 #### [facility] [address] [place] [address] Dr. Roberto Cabral Urea nitrogen [Mass/Vol] 46.0 mg/dL Critically high 7.0-18.0 [facility] Comment on above: Performed By: #### T SH, LIVER, LIPID, BMP, T7 #### [facility] [address] [place] [address] Dr. Roberto Cabral Urea nitrogen/Creatinine [Mass ratio] 30.9 mg/mg Normal [facility] Comment on above: Performed By: #### T SH, LIVER, LIPID, BMP, T7 #### [facility] [address] [place] [address] Dr. Roberto Cabral BNPon 12-10-2021 Natriuretic peptide B (Bld) [Mass/Vol] 167.0 pg/mL Normal <=1,800.0 [facility] Comment on above: Performed By: #### T SH, LIVER, LIPID, BMP, T7 #### [facility] [address] [place] [address] Dr. Roberto Cabral CBC AUTO DIFFon 12-10-2021 BASO # 0.1 103/ul Normal 0.0-0.1 [facility] Comment on above: Performed By: #### T SH, LIVER, LIPID, BMP, T7 #### [facility] [address] [place] [address] Dr. Roberto Cabral Basophils/100 WBC (Bld) 0.3 % Normal 0.2-2.0 [facility] Comment on above: Performed By: #### T SH, LIVER, LIPID, BMP, T7 #### [facility] [address] [place] [address] Dr. Roberto Cabral EO # 0.4 103/ul Normal 0.0-0.7 [facility] Comment on above: Performed By: #### T SH, LIVER, LIPID, BMP, T7 #### [facility] [address] [place] [address] Dr. Roberto Cabral Eosinophils/100 WBC (Bld) 2.6 % Normal 0.9-7.0 [facility] Comment on above: Performed By: #### T SH, LIVER, LIPID, BMP, T7 #### [facility] [address] [place] [address] Dr. Roberto Cabral Erythrocyte distribution width (RBC) [Ratio] 15.7 % Critically high 11.0-15.0 [facility] Comment on above: Performed By: #### T SH, LIVER, LIPID, BMP, T7 #### [facility] [address] [place] [address] Dr. Roberto Cabral Hematocrit (Bld) [Volume fraction] 36.1 % Critically low 42.0-54.0 [facility] Comment on above: Performed By: #### T SH, LIVER, LIPID, BMP, T7 #### [facility] [address] [place] [address] Dr. Roberto Cabral Hemoglobin (Bld) [Mass/Vol] 11.5 g/dL Critically low 14.0-18.0 [facility] Comment on above: Performed By: #### T SH, LIVER, LIPID, BMP, T7 #### [facility] [address] [address] [address] Roberto Cabral IG # 0.07 10e3/ul Critically high 0.00-0.03 [facility] Comment on above: Performed By: #### T SH, LIVER, LIPID, BMP, T7 #### [facility] [address] [place] [address] Dr. Roberto Cabral IG % 0.4 % Normal 0.0-0.5 [facility] Comment on above: Performed By: #### T SH, LIVER, LIPID, BMP, T7 #### [facility] [address] [place] [address] Dr. Roberto Cabral LYMPH # 1.4 103/ul Normal 1.2-3.8 [facility] Comment on above: Performed By: #### T SH, LIVER, LIPID, BMP, T7 #### [facility] [address] [place] [address] Dr. Roberto Cabral Lymphocytes/100 WBC (Bld) 9.0 % Critically low 20.5-60.0 [facility] Comment on above: Performed By: #### T SH, LIVER, LIPID, BMP, T7 #### [facility] [address] [place] [address] Dr. Roberto Cabral MANUAL DIFF REQ NO Normal [facility] Comment on above: Performed By: #### T SH, LIVER, LIPID, BMP, T7 #### [facility] [address] [place] [address] Dr. Roberto Cabral MCH (RBC) [Entitic mass] 28.1 pg Normal 25.9-34.0 [facility] Comment on above: Performed By: #### T SH, LIVER, LIPID, BMP, T7 #### [facility] [address] [place] [address] Dr. Roberto Cabral MCHC (RBC) [Mass/Vol] 31.9 g/dL Normal 29.9-35.2 [facility] Comment on above: Performed By: #### T SH, LIVER, LIPID, BMP, T7 #### [facility] [address] [place] [address] Dr. Roberto Cabral MCV (RBC) [Entitic vol] 88.3 fL Normal 80.0-94.0 [facility] Comment on above: Performed By: #### T SH, LIVER, LIPID, BMP, T7 #### [facility] [address] [place] [address] Dr. Roberto Cabral MONO # 1.4 103/ul Critically high 0.3-0.8 [facility] Comment on above: Performed By: #### T SH, LIVER, LIPID, BMP, T7 #### [facility] [address] [place] [address] Dr. Roberto Cabral Monocytes/100 WBC (Bld) 8.8 % Normal 1.7-12.0 [facility] Comment on above: Performed By: #### T SH, LIVER, LIPID, BMP, T7 #### [facility] [address] [place] [address] Dr. Roberto Cabral NEUT # 12.3 103/ul Critically high 1.4-6.[address] [facility] Comment on above: Performed By: #### T SH, LIVER, LIPID, BMP, T7 #### [facility] [address] [place] [address] Dr. Roberto Cabral Neutrophils/100 WBC (Bld) 78.9 % Critically high 43.0-75.0 [facility] Comment on above: Performed By: #### T SH, LIVER, LIPID, BMP, T7 #### [facility] [address] [place] [address] Dr. Roberto Cabral Platelet mean volume (Bld) [Entitic vol] 10.5 fL Normal 9.5-13.5 [facility] Comment on above: Performed By: #### T SH, LIVER, LIPID, BMP, T7 #### [facility] [address] [place] [address] Dr. Roberto Cabral PLT 316 103/ul Normal 150-450 [facility] Comment on above: Performed By: #### T SH, LIVER, LIPID, BMP, T7 #### [facility] [address] [place] [address] Dr. Roberto Cabral RBC 4.09 106/ul Critically low 4.70-6.10 [facility] Comment on above: Performed By: #### T SH, LIVER, LIPID, BMP, T7 #### [facility] [address] [place] [address] Dr. Roberto Cabral WBC 15.6 103/ul Critically high 4.0-11.0 [facility] Comment on above: Performed By: #### T SH, LIVER, LIPID, BMP, T7 #### [facility] [address] [place] [address] Dr. Roberto Cabral CULTURE URINEon 12-10-2021 CULTURE URINE Culture Observations : No growth Normal [facility] Comment on above: Performed By: #### T SH, LIVER, LIPID, BMP, T7 #### [facility] [address] [place] [address] Dr. Roberto Cabral ER URINE PROFILEon 2 Bilirubin Ql (U) Negative Normal NEGATIVE [facility] Comment on above: Performed By: #### E RUR #### [facility] [address] [place] [address] Dr. Roberto Cabral Clarity (U) CLEAR Normal CLEAR [facility] Comment on above: Performed By: #### E RUR #### [facility] [address] [place] [address] Dr. Roberto Cabral Color (U) LT. YELLOW Normal YELLOW [facility] Comment on above: Performed By: #### E RUR #### [facility] [address] [place] [address] Dr. Roberto TAPIA A micrscopic examination will be performed if indicated. Normal [facility] Comment on above: Performed By: #### E RUR #### [facility] [address] [place] [address] Dr. Roberto Cabral Glucose Ql (U) Negative Normal NEGATIVE [facility] Comment on above: Performed By: #### E RUR #### [facility] [address] [place] [address] Dr. Roberto Cabral Hemoglobin Ql (U) Negative Normal NEGATIVE [facility] Comment on above: Performed By: #### E RUR #### [facility] [address] [place] [address] Dr. Roberto Cabral Ketones Ql (U) Negative Normal NEGATIVE [facility] Comment on above: Performed By: #### E RUR #### [facility] [address] [place] [address] Dr. Roberto Cabral LEUKOCYTES Negative Normal NEGATIVE [facility] Comment on above: Performed By: #### E RUR #### [facility] [address] [place] [address] Dr. Roberto Cabral Nitrite Ql (U) Negative Normal NEGATIVE [facility] Comment on above: Performed By: #### E RUR #### [facility] [address] [place] [address] Dr. Roberto Cabral pH (U) 5.0 [pH] Normal 5-9 [facility] Comment on above: Performed By: #### E RUR #### [facility] [address] [place] [address] Dr. Roberto Cabral SPEC GRAVITY 1.015 Normal 1.005-<=1.025 [facility] Comment on above: Performed By: #### E RUR #### [facility] [address] [place] [address] Dr. Roberto Cabral UA PROTEIN Negative Normal NEGATIVE/ TRACE [facility] Comment on above: Performed By: #### E RUR #### [facility] [address] [place] [address] Dr. Roberto Cabral UR MICRO IND NOT INDICATED Normal [facility] Comment on above: Performed By: #### E RUR #### [facility] [address] [place] [address] Dr. Roberto Cabral Urobilinogen Qn (U) 0.2 {Noman'U}/dL Normal 0.2 - 1. 0 [facility] Comment on above: Performed By: #### E RUR #### [facility] [address] [place] [address] Dr. Roberto Cabral GI PANEL (PCR)on 12-10-2021 Adenovirus F 40/41 Not detected Normal NOT DETECTED [facility] Comment on above: Performed By: #### T SH, LIVER, LIPID, BMP, T7 #### [facility] [address] [address] [address] Roberto Cabral Astrovirus Not detected Normal NOT DETECTED [facility] Comment on above: Performed By: #### T SH, LIVER, LIPID, BMP, T7 #### [facility] [address] [address] [address] Roberto Cabral C. Diff toxin A/B Not detected Normal NOT DETECTED [facility] Comment on above: Performed By: #### T SH, LIVER, LIPID, BMP, T7 #### [facility] [address] [address] [address] Roberto Cabral Campylobacter Not detected Normal NOT DETECTED [facility] Comment on above: Performed By: #### T SH, LIVER, LIPID, BMP, T7 #### [facility] Laboratory [address] [address] [address] Roberto Cabral Cryptosporidium Not detected Normal NOT DETECTED [facility] Comment on above: Performed By: #### T SH, LIVER, LIPID, BMP, T7 #### [facility] Laboratory [address] [place] [address] Dr. Roberto Cabral Cyclos. Cayetanensis Not detected Normal NOT DETECTED [facility] Comment on above: Performed By: #### T SH, LIVER, LIPID, BMP, T7 #### [facility] [address] [address] [address] Roberto Cabral E. Coli O157 Not Applicable Normal Not Applicable [facility] Comment on above: Performed By: #### T SH, LIVER, LIPID, BMP, T7 #### [facility] [address] [address] [address] Roberto Cabral E. histolytica Not detected Normal NOT DETECTED [facility] Comment on above: Performed By: #### T SH, LIVER, LIPID, BMP, T7 #### [facility] [address] [address] [address] Roberto Cabral EAEC Not detected Normal NOT DETECTED [facility] Comment on above: Performed By: #### T SH, LIVER, LIPID, BMP, T7 #### [facility] [address] [address] [address] Roberto Cabral EIEC Not detected Normal NOT DETECTED [facility] Comment on above: Performed By: #### T SH, LIVER, LIPID, BMP, T7 #### [facility] [address] [address] [address] Roberto Cabral EPEC Not detected Normal NOT DETECTED [facility] Comment on above: Performed By: #### T SH, LIVER, LIPID, BMP, T7 #### [facility] [address] [address] [address] Roberto Cabral ETEC Not detected Normal NOT DETECTED [facility] Comment on above: Performed By: #### T SH, LIVER, LIPID, BMP, T7 #### [facility] [address] [address] [address] Roberto Mcgrathlia Not detected Normal NOT DETECTED [facility] Comment on above: Performed By: #### T SH, LIVER, LIPID, BMP, T7 #### [facility] [address] [address] [address] Roberto CARDENAS CONTROLS PASSED Normal [facility] Comment on above: Performed By: #### T SH, LIVER, LIPID, BMP, T7 #### [facility] [address] [address] [address] Roberto MAXWELL JAIRO HEADER GI PANEL BACTERIA Normal [facility] Comment on above: Performed By: #### T SH, LIVER, LIPID, BMP, T7 #### [facility] [address] [address] [address] Roberto IVEY ECOLI GI PANEL DIARRHEAGENIC E.COLI / SHIGELLA Normal [facility] Comment on above: Performed By: #### T SH, LIVER, LIPID, BMP, T7 #### [facility] [address] [address] [address] Roberto IVEY INFO SEE BELOW Normal [facility] Comment on above: Result Comment: EAEC - Enteroaggregative E. Coli EPEC- Enteropathogenic E. Coli ETEC- Enterotoxigenic E. Coli lt/st STEC- Shigella-like toxin-producing E. Coli stx1/stx2 EIEC- Shigella/Enteroinvasive E. Coli Performed By: #### T SH, LIVER, LIPID, BMP, T7 #### [facility] [address] [address] [address] Roberto IVEY PARASITES GI PANEL PARASITES Normal [facility] Comment on above: Performed By: #### T SH, LIVER, LIPID, BMP, T7 #### [facility] [address] [address] [address] Roberto IVEY VIRUS GI PANEL VIRUSES Normal [facility] Comment on above: Performed By: #### T SH, LIVER, LIPID, BMP, T7 #### [facility] [address] [address] [address] Roberto Cabral Norovirus GI/GII Not detected Normal NOT DETECTED [facility] Comment on above: Performed By: #### T SH, LIVER, LIPID, BMP, T7 #### [facility] [address] [address] [address] Roberto Cabral P. Shigelloides Not detected Normal NOT DETECTED [facility] Comment on above: Performed By: #### T SH, LIVER, LIPID, BMP, T7 #### [facility] [address] [address] [address] Roberto Cabral Rotavirus A Not detected Normal NOT DETECTED [facility] Comment on above: Performed By: #### T SH, LIVER, LIPID, BMP, T7 #### [facility] [address] [address] [address] Roberto Cabral Salmonella Not detected Normal NOT DETECTED [facility] Comment on above: Performed By: #### T SH, LIVER, LIPID, BMP, T7 #### [facility] [address] [address] [address] Roberto Cabral Sapovirus Detected Abnormal NOT DETECTED [facility] Comment on above: Performed By: #### T SH, LIVER, LIPID, BMP, T7 #### [facility] [address] [address] [address] Roberto Cabral STEC Not detected Normal NOT DETECTED [facility] Comment on above: Performed By: #### T SH, LIVER, LIPID, BMP, T7 #### [facility] [address] [place] [address] Dr. Roberto Cabral Vibrio Not detected Normal NOT DETECTED [facility] Comment on above: Performed By: #### T SH, LIVER, LIPID, BMP, T7 #### [facility] [address] [place] [address] Dr. Roberto Cabral Vibrio Cholera Not detected Normal NOT DETECTED [facility] Comment on above: Performed By: #### T SH, LIVER, LIPID, BMP, T7 #### [facility] [address] [place] [address] Dr. Roberto Cabral Y. Enterocolitica Not detected Normal NOT DETECTED [facility] Comment on above: Performed By: #### T SH, LIVER, LIPID, BMP, T7 #### [facility] [address] [place] [address] Dr. Roberto Cabral POINT OF CARE GLUCOSEon 12-01 0-2021 Glucose [Mass/Vol] 73 mg/dL Critically low 74-106 [facility] Comment on above: Performed By: #### P OCGLUC #### [facility] [address] [place] [address] Dr. Roberto Cabral Glucose [Mass/Vol] 69 mg/dL Critically low 74-106 [facility] Comment on above: Performed By: #### T SH, LIVER, LIPID, BMP, T7 #### [facility] [address] [place] [address] Dr. Roberto Cabral Glucose [Mass/Vol] 99 mg/dL Normal 74-106 [facility] Comment on above: Performed By: #### P OCGLUC #### [facility] [address] [place] [address] Dr. Roberto Cabral Glucose [Mass/Vol] 67 mg/dL Critically low 74-106 [facility] Comment on above: Performed By: #### T SH, LIVER, LIPID, BMP, T7 #### [facility] [address] [address] [address] Roberto Cabral Glucose [Mass/Vol] 74 mg/dL Normal 74-106 [facility] Comment on above: Performed By: #### P OCGLUC #### [facility] [address] [address] [address] Roberto Cabral Glucose [Mass/Vol] 55 mg/dL Critically low 74-106 [facility] Comment on above: Performed By: #### T SH, LIVER, LIPID, BMP, T7 #### [facility] [address] [place] [address] Dr. Roberto Cabral PROF 14(COMP METB)on 022 Albumin [Mass/Vol] 3.1 g/dL Critically low 3.4-5.0 [facility] Comment on above: Performed By: #### T SH, LIVER, LIPID, BMP, T7 #### [facility] [address] [place] [address] Dr. Roberto Cabral Albumin/Globulin [Mass ratio] 0.9 {ratio} [facility] Comment on above: Performed By: #### T SH, LIVER, LIPID, BMP, T7 #### [facility] [address] [address] [address] Roberto Cabral ALP [Catalytic activity/Vol] 73 U/L Normal 46-116 [facility] Comment on above: Performed By: #### T SH, LIVER, LIPID, BMP, T7 #### [facility] [address] [place] [address] Dr. Roberto Cabral ALT [Catalytic activity/Vol] 17 U/L Normal 16-63 [facility] Comment on above: Performed By: #### T SH, LIVER, LIPID, BMP, T7 #### [facility] [address] [address] [address] Roberto Cabral Anion gap [Moles/Vol] 17.7 mmol/L Normal [facility] Comment on above: Performed By: #### T SH, LIVER, LIPID, BMP, T7 #### [facility] [address] [address] [address] Roberto Cabral AST [Catalytic activity/Vol] 13 U/L Critically low 15-37 [facility] Comment on above: Performed By: #### T SH, LIVER, LIPID, BMP, T7 #### [facility] [address] [place] [address] Dr. Roberto Cabral Bilirubin [Mass/Vol] 0.2 mg/dL Normal 0.2-1.0 [facility] Comment on above: Performed By: #### T SH, LIVER, LIPID, BMP, T7 #### [facility] [address] [place] [address] Dr. Roberto Cabral Calcium [Mass/Vol] 8.7 mg/dL Normal 8.5-10.1 [facility] Comment on above: Performed By: #### T SH, LIVER, LIPID, BMP, T7 #### [facility] [address] [place] [address] Dr. Roberto Cabral Chloride [Moles/Vol] 110 mmol/L Critically high 98-107 [facility] Comment on above: Performed By: #### T SH, LIVER, LIPID, BMP, T7 #### [facility] [address] [place] [address] Dr. Roberto Cabral CO2 [Moles/Vol] 16.0 mmol/L Critically low 21.0-32.0 [facility] Comment on above: Performed By: #### T SH, LIVER, LIPID, BMP, T7 #### [facility] [address] [place] [address] Dr. Roberto Cabral Creatinine [Mass/Vol] 1.85 mg/dL Critically high 0.70-1.30 [facility] Comment on above: Performed By: #### T SH, LIVER, LIPID, BMP, T7 #### [facility] [address] [place] [address] Dr. Roberto Cabral EGFR-AF MICRONESIAN 43 mL/min/1.73m2 Critically low >=60 [facility] Comment on above: Performed By: #### T SH, LIVER, LIPID, BMP, T7 #### [facility] [address] [place] [address] Dr. Roberto Cabral EGFR-NON AF MICRONESIAN 36 mL/min/1.73m2 Critically low >=60 [facility] Comment on above: Performed By: #### T SH, LIVER, LIPID, BMP, T7 #### [facility] [address] [address] [address] Roberto Cabral Globulin (S) [Mass/Vol] 3.4 g/dL Normal [facility] Comment on above: Performed By: #### T SH, LIVER, LIPID, BMP, T7 #### [facility] [address] [address] [address] Roberto Cabral Glucose [Mass/Vol] 113 mg/dL Critically high 74-106 [facility] Comment on above: Performed By: #### T SH, LIVER, LIPID, BMP, T7 #### [facility] [address] [place] [address] Dr. Roberto Cabral Potassium [Moles/Vol] 4.7 mmol/L Normal 3.5-5.1 [facility] Comment on above: Performed By: #### T SH, LIVER, LIPID, BMP, T7 #### [facility] [address] [place] [address] Dr. Roberto Cabral Protein [Mass/Vol] 6.5 g/dL Normal 6.4-8.2 [facility] Comment on above: Performed By: #### T SH, LIVER, LIPID, BMP, T7 #### [facility] [address] [place] [address] Dr. Roberto Cabral Sodium [Moles/Vol] 139 mmol/L Normal 136-145 [facility] Comment on above: Performed By: #### T SH, LIVER, LIPID, BMP, T7 #### [facility] [address] [place] [address] Dr. Roberto Cabral Urea nitrogen [Mass/Vol] 66.0 mg/dL Critically high 7.0-18.0 [facility] Comment on above: Performed By: #### T SH, LIVER, LIPID, BMP, T7 #### [facility] [address] [place] [address] Dr. Roberto Cabral Urea nitrogen/Creatinine [Mass ratio] 35.7 mg/mg Normal [facility] Comment on above: Performed By: #### T SH, LIVER, LIPID, BMP, T7 #### [facility] [address] [place] [address] Dr. Roberto Cabral CBC AUTO DIFFon 12-09-2021 BASO # 0.0 103/ul Normal 0.0-0.1 [facility] Comment on above: Performed By: #### T SH, LIVER, LIPID, BMP, T7 #### [facility] [address] [place] [address] Dr. Roberto Cabral Basophils/100 WBC (Bld) 0.2 % Normal 0.2-2.0 [facility] Comment on above: Performed By: #### T SH, LIVER, LIPID, BMP, T7 #### [facility] [address] [place] [address] Dr. Rboerto Cabral EO # 0.3 103/ul Normal 0.0-0.7 [facility] Comment on above: Performed By: #### T SH, LIVER, LIPID, BMP, T7 #### [facility] [address] [place] [address] Dr. Roberto Cabral Eosinophils/100 WBC (Bld) 1.7 % Normal 0.9-7.0 [facility] Comment on above: Performed By: #### T SH, LIVER, LIPID, BMP, T7 #### [facility] [address] [place] [address] Dr. Roberto Cabral Erythrocyte distribution width (RBC) [Ratio] 15.4 % Critically high 11.0-15.0 [facility] Comment on above: Performed By: #### T SH, LIVER, LIPID, BMP, T7 #### [facility] [address] [place] [address] Dr. Roberto Cabral Hematocrit (Bld) [Volume fraction] 40.2 % Critically low 42.0-54.0 [facility] Comment on above: Performed By: #### T SH, LIVER, LIPID, BMP, T7 #### [facility] [address] [place] [address] Dr. Roberto Cabral Hemoglobin (Bld) [Mass/Vol] 12.6 g/dL Critically low 14.0-18.0 [facility] Comment on above: Performed By: #### T SH, LIVER, LIPID, BMP, T7 #### [facility] [address] [address] [address] Roberto Cabral IG # 0.09 10e3/ul Critically high 0.00-0.03 [facility] Comment on above: Performed By: #### T SH, LIVER, LIPID, BMP, T7 #### [facility] [address] [place] [address] Dr. Roberto Cabral IG % 0.5 % Normal 0.0-0.5 [facility] Comment on above: Performed By: #### T SH, LIVER, LIPID, BMP, T7 #### [facility] [address] [place] [address] Dr. Roberto Cabral LYMPH # 1.5 103/ul Normal 1.2-3.8 [facility] Comment on above: Performed By: #### T SH, LIVER, LIPID, BMP, T7 #### [facility] [address] [place] [address] Dr. Roberto Cabral Lymphocytes/100 WBC (Bld) 8.0 % Critically low 20.5-60.0 [facility] Comment on above: Performed By: #### T SH, LIVER, LIPID, BMP, T7 #### [facility] [address] [place] [address] Dr. Roberto Cabral MANUAL DIFF REQ NO Normal [facility] Comment on above: Performed By: #### T SH, LIVER, LIPID, BMP, T7 #### [facility] [address] [place] [address] Dr. Roberto Cabral MCH (RBC) [Entitic mass] 28.0 pg Normal 25.9-34.0 [facility] Comment on above: Performed By: #### T SH, LIVER, LIPID, BMP, T7 #### [facility] [address] [place] [address] Dr. Roberto Cabral MCHC (RBC) [Mass/Vol] 31.3 g/dL Normal 29.9-35.2 [facility] Comment on above: Performed By: #### T SH, LIVER, LIPID, BMP, T7 #### [facility] [address] [place] [address] Dr. Roberto Cabral MCV (RBC) [Entitic vol] 89.3 fL Normal 80.0-94.0 [facility] Comment on above: Performed By: #### T SH, LIVER, LIPID, BMP, T7 #### [facility] [address] [place] [address] Dr. Roberto Cabral MONO # 1.5 103/ul Critically high 0.3-0.8 [facility] Comment on above: Performed By: #### T SH, LIVER, LIPID, BMP, T7 #### [facility] [address] [place] [address] Dr. Roberto Cabral Monocytes/100 WBC (Bld) 8.2 % Normal 1.7-12.0 [facility] Comment on above: Performed By: #### T SH, LIVER, LIPID, BMP, T7 #### [facility] [address] [place] [address] Dr. Roberto Cabral NEUT # 14.9 103/ul Critically high 1.4-6.[address] [facility] Comment on above: Performed By: #### T SH, LIVER, LIPID, BMP, T7 #### [facility] [address] [place] [address] Dr. Roberto Cabral Neutrophils/100 WBC (Bld) 81.4 % Critically high 43.0-75.0 [facility] Comment on above: Performed By: #### T SH, LIVER, LIPID, BMP, T7 #### [facility] [address] [place] [address] Dr. Roberto Cabral Platelet mean volume (Bld) [Entitic vol] 10.0 fL Normal 9.5-13.5 [facility] Comment on above: Performed By: #### T SH, LIVER, LIPID, BMP, T7 #### [facility] [address] [place] [address] Dr. Roberto Cabral PLT 358 103/ul Normal 150-450 [facility] Comment on above: Performed By: #### T SH, LIVER, LIPID, BMP, T7 #### [facility] [address] [place] [address] Dr. Roberto Cabral RBC 4.50 106/ul Critically low 4.70-6.10 [facility] Comment on above: Performed By: #### T SH, LIVER, LIPID, BMP, T7 #### [facility] [address], [place] [address] Dr. Roberto Cabral WBC 18.3 103/ul Critically high 4.0-11.0 [facility] Comment on above: Performed By: #### T SH, LIVER, LIPID, BMP, T7 #### [facility] [address], [place] [address] ABD/PELVIS WO CONon [...] DEVIN ORTIZ Date: 2021-12-09 20:39 Normal [facility]on SARS-CoV-2 (COVID-19) RNA JOSÉ+probe Ql (Unsp spec) Not detected Normal NOT DETECTED [facility] Comment on above: Result Comment: When diagnostic [...] for this test is supported by the [place] of Health and Human Service's declaration that [...] T SH, LIVER, LIPID, BMP, T7 #### [facility] [address], [place] [address] Dr. Roberto Cabral LACTATE/LACTIC ACIDon 2021 Lactate [Moles/Vol] 1.1 mmol/L Normal 0.4-1.9 [facility] Comment on above: Performed By: #### T SH, LIVER, LIPID, BMP, T7 #### [facility] [address], [place] [address] Dr. Roberto Cabral LIPASEon 12-09-2021 Lipase [Catalytic activity/Vol] 186.0 U/L Normal 73.0-393.0 [facility] Comment on above: Performed By: #### T SH, LIVER, LIPID, BMP, T7 #### [facility] [address] [address] [address] Roberto Cabral PROF 14(COMP METB)on 022 Albumin [Mass/Vol] 3.6 g/dL Normal 3.4-5.0 [facility] Comment on above: Performed By: #### T SH, LIVER, LIPID, BMP, T7 #### [facility] [address] [place] [address] Dr. Roberto Cabral Albumin/Globulin [Mass ratio] 1.0 {ratio} Normal [facility] Comment on above: Performed By: #### T SH, LIVER, LIPID, BMP, T7 #### [facility] [address] [place] [address] Dr. Roberto Cabral ALP [Catalytic activity/Vol] 79 U/L Normal 46-116 [facility] Comment on above: Performed By: #### T SH, LIVER, LIPID, BMP, T7 #### [facility] [address] [address] [address] Roberto Cabral ALT [Catalytic activity/Vol] 19 U/L Normal 16-63 [facility] Comment on above: Performed By: #### T SH, LIVER, LIPID, BMP, T7 #### [facility] [address] [address] [address] Roberto Cabral Anion gap [Moles/Vol] 20.6 mmol/L Normal [facility] Comment on above: Performed By: #### T SH, LIVER, LIPID, BMP, T7 #### [facility] [address] [address] [address] Roberto Cabral AST [Catalytic activity/Vol] 19 U/L Normal 15-37 [facility] Comment on above: Performed By: #### T SH, LIVER, LIPID, BMP, T7 #### [facility] [address] [place] [address] Dr. Roberto Cabral Bilirubin [Mass/Vol] 0.3 mg/dL Normal 0.2-1.0 [facility] Comment on above: Performed By: #### T SH, LIVER, LIPID, BMP, T7 #### [facility] [address] [address] [address] Roberto Cabral Calcium [Mass/Vol] 9.4 mg/dL Normal 8.5-10.1 [facility] Comment on above: Performed By: #### T SH, LIVER, LIPID, BMP, T7 #### [facility] [address] [address] [address] Roberto Cabral Chloride [Moles/Vol] 107 mmol/L Normal 98-107 [facility] Comment on above: Performed By: #### T SH, LIVER, LIPID, BMP, T7 #### [facility] [address] [place] [address] Dr. Roberto Cabral CO2 [Moles/Vol] 14.9 mmol/L Critically low 21.0-32.0 [facility] Comment on above: Performed By: #### T SH, LIVER, LIPID, BMP, T7 #### [facility] [address] [address] [address] Roberto Cabral Creatinine [Mass/Vol] 2.11 mg/dL Critically high 0.70-1.30 [facility] Comment on above: Performed By: #### T SH, LIVER, LIPID, BMP, T7 #### [facility] [address] [place] [address] Dr. Roberto Cabral EGFR-AF MICRONESIAN 37 mL/min/1.73m2 Critically low >=60 [facility] Comment on above: Performed By: #### T SH, LIVER, LIPID, BMP, T7 #### [facility] [address] [address] [address] Roberto Cabral EGFR-NON AF MICRONESIAN 31 mL/min/1.73m2 Critically low >=60 [facility] Comment on above: Performed By: #### T SH, LIVER, LIPID, BMP, T7 #### [facility] [address] [place] [address] Dr. Roberto Cabral Globulin (S) [Mass/Vol] 3.5 g/dL Normal [facility] Comment on above: Performed By: #### T SH, LIVER, LIPID, BMP, T7 #### [facility] [address] [address] [address] Roberto Cabral Glucose [Mass/Vol] 170 mg/dL Critically high 74-106 [facility] Comment on above: Performed By: #### T SH, LIVER, LIPID, BMP, T7 #### [facility] [address] [address] [address] Roberto Cabral Potassium [Moles/Vol] 5.5 mmol/L Critically high 3.5-5.1 [facility] Comment on above: Performed By: #### T SH, LIVER, LIPID, BMP, T7 #### [facility] [address] [place] [address] Dr. Roberto Cabral Protein [Mass/Vol] 7.1 g/dL Normal 6.4-8.2 [facility] Comment on above: Performed By: #### T SH, LIVER, LIPID, BMP, T7 #### [facility] [address] [place] [address] Dr. Roberto aCbral Sodium [Moles/Vol] 137 mmol/L Normal 136-145 [facility] Comment on above: Performed By: #### T SH, LIVER, LIPID, BMP, T7 #### [facility] [address] [place] [address] Dr. Roberto aCbral Urea nitrogen [Mass/Vol] 70.0 mg/dL Critically high 7.0-18.0 [facility] Comment on above: Performed By: #### T SH, LIVER, LIPID, BMP, T7 #### [facility] [address] [place] [address] Dr. Roberto Cabral Urea nitrogen/Creatinine [Mass ratio] 33.2 mg/mg Normal [facility] Comment on above: Performed By: #### T SH, LIVER, LIPID, BMP, T7 #### [facility] [address] [place] [address] Dr. Roberto Cabral PROTIMEon 12-09-2021 INR Coag (PPP) [Relative time] 1.04 {INR} Normal [facility] Comment on above: Performed By: #### T SH, LIVER, LIPID, BMP, T7 #### [facility] [address] [place] [address] Dr. Roberto Cabral INR GUIDELINES SEE BELOW Normal [facility] Comment on above: Result Comment: NIKI RED INR: 2.0 - 3.0 CONDITIONS NOT LISTED BELOW 2.5 - 3.5 FOR PROSTHETIC HEART VALVE REPLACEMENT 2.5 - 3.5 RECURRENT THROMBOSIS Performed By: #### T SH, LIVER, LIPID, BMP, T7 #### [facility] [address] [place] [address] Dr. Roberto Cabral PT Coag (PPP) [Time] 11.2 s Normal 9.0-11.6 [facility] Comment on above: Performed By: #### T SH, LIVER, LIPID, BMP, T7 #### [facility] [address] [place] [address] Dr. Roberto Cabral PTTon 12-09-2021 aPTT Coag (Bld) [Time] 33.4 s Normal 22.3-36.2 [facility] Comment on above: Performed By: #### T SH, LIVER, LIPID, BMP, T7 #### [facility] [address] [place] [address] Dr. Roberto Cabral TROPONIN, HIGH SENSITIVITYon 12-09-2021 HSTROP 11.4 pg/mL Normal 4.0-76.1 [facility] Comment on above: Result Comment: CUT- OFF POINTS HAVE BEEN ESTABLISHED BASED ON THE FOURTH UNIVERSAL DEFINITIONS OF MYOCARDIAL INFARCTION. THE UPPER REFERENCE LIMIT (URL) OF TROPONIN, DEFINED THE 99TH PERCENTILE OF cTnI DISTRIBUTION IN A REFERENCE POPULATION, HAS BEEN CONFIRMED THE DECISION THRESHOLD FOR [place] DIAGNOSIS. Performed By: #### T SH, LIVER, LIPID, BMP, T7 #### [facility] [address] [place] [address] Dr. Roberto Cabral POINT OF CARE GLUCOSEon 05- Glucose [Mass/Vol] 115 mg/dL Critically high 74-106 [facility] Comment on above: Performed By: #### T SH, LIVER, LIPID, BMP, T7 #### [facility] [address] [place], [place] [id number] Dr. Roberto Cabral Vital Signs Date Time Vital Sign Value Performing Clinician Rodney fowler 10-27-2021 14:12-0400 Blood Pressure Location [facility] 10-27-2021 14:12-0400 Diastolic blood pressure 64 mm[Hg] [facility] 10-27-2021 14:12-0400 Heart rate 72 /min [facility] 10-27-2021 14:12-0400 Respiratory rate 16 /min [facility] [place] 10-27-2021 14:12-0400 Systolic blood pressure 120 mm[Hg] [...] Start: 01-18-2017 End: 01-19-2017 Ambulatory DEFAULT PHYSICIAN Facility:[facility] Procedures Date Procedure Procedure Detail Performing Clinician Start: 10-14-[address] ANANT ZHANG . Comment on above: Performed By: #### T SH, LIVER, LIPID, BMP, T7 #### [facility] [address] [place] [id number] [address] Roberto Cabral Start: 12-20-2016 Colonoscopy [facility] Cholecystectomy [facility] Immunizations Immunization Date Immunization Notes Care Provider [facility] 06-25-2021 SARS-CoV-2 (COVID-19 ) Ad26 vaccine, recombinant [facility] [place] 09-22-2020 SARS-CoV-2 (COVID-19 ) Ad26 vaccine, recombinant [facility] [place] 08-31-2020 SARS-CoV-2 (COVID-19 ) Ad26 vaccine, recombinant [facility] [place] Payers Date Payer Category Payer Unknown [id number] 1945 Unknown [id number] 2.16.84 [id number] 1945 Unknown [id number] 2.16.84 [id number] 1945 Unknown [id number] 2.16.84 [id number] 1945 Unknown [id number] 2.16.84 [id number] 1945 Unknown [id number] 2.16.84 [id number] 1945 Unknown [id number] 2.16.84 [id number] Unknown Social History Date Type Detail Facility Start: 10-27-2021 Tobacco smoking status Ex-smoker ([facility] Tobacco smoking status Never [facility] Sex Assigned [facility] Clinical Note 11-17-2021 Note Date & Type [...] health for screening. CC: Adonay Zhang M.D. [facility] Signed and Approved by: DR GWEN LORENZO . 11/24/2021 10:45:00 [facility] Evaluation + Plan note Note Date & Type Note Facility Evaluation + Plan note No data available for this section [facility] [place] [facility] Discharge instructions Note Date & Type Note Facility Hospital Discharge instructions No data available for this section [facility] [place] Summary Purpose Family History No Family History Records FoundNo Family History Records FoundNo Family History Records Found Advance Directives No Advanced Directives Records FoundNo Advanced Directives Records FoundNo Advanced Directives Records Found Additional Source Comments (unrecognized sect ion and content) No Status Records FoundNo Status Records FoundNo Status Records Found INFORMATION SOURCE (unrecogn ized section and content) DATE CREATED AUTHOR 12/27/[address] [facility] DATE CREATED AUTHOR AUTHOR'S ORGANIZ ATION 10/20/2022 [facility] DATE CREATED AUTHOR AUTHOR'S ORGANIZ ATION 08/11/[address] [facility] FOR RECORDS PERTAINING TO PATIENTS WHO [...] BE BASED ON THE PRIMARY CLINICAL RECORDS. [facility]. provides no warranty or guarantee of the accuracy or completeness of information in this document.
--- OUTSIDE RECORDS SUMMARY | 2023-08-12 13:01 | XMS_ITS | CCD ---
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 Comment on above: Performed By: #### T SH, LIVER, LIPID, BMP, T7 #### [facility] [address] [place] [address] Dr. Roberto Cabral Basophils/100 WBC (Bld) 0.7 % Normal 0.2-2.[address] [facility] Comment on above: Performed By: #### T SH, LIVER, LIPID, BMP, T7 #### [facility] [address] [address] [address] Roberto Cabral EO # 0.5 103/ul Normal 0.0-0.[address] [facility] Comment on above: Performed By: #### T SH, LIVER, LIPID, BMP, T7 #### [facility] [address] [address] [address] Roberto Cabral Eosinophils/100 WBC (Bld) 5.3 % Normal 0.9-7.[address] [facility] Comment on above: Performed By: #### T SH, LIVER, LIPID, BMP, T7 #### [facility] [address] [place] [address] Dr. Roberto Cabral Erythrocyte distribution width (RBC) [Ratio] 15.8 % Critically high 11.0-15.[address] [facility] Comment on above: Performed By: #### T SH, LIVER, LIPID, BMP, T7 #### [facility] [address] [place], [place] [id number] Dr. Roberto Cabral Hematocrit (Bld) [Volume fraction] 34.4 % Critically low 42.0-54.[address] [facility] Comment on above: Performed By: #### T SH, LIVER, LIPID, BMP, T7 #### [facility] [address] [place] [address] Dr. Roberto Cabral Hemoglobin (Bld) [Mass/Vol] 10.2 g/dL Critically low 14.0-18.[address] [facility] Comment on above: Performed By: #### T SH, LIVER, LIPID, BMP, T7 #### [facility] [address] [place] [address] Dr. Roberto Cabral IG # 0.03 10e3/ul Normal 0.00-0.[address] [facility] Comment on above: Performed By: #### T SH, LIVER, LIPID, BMP, T7 #### [facility] [address] [place] [address] Dr. Roberto Cabral IG % 0.3 % Normal 0.0-0.[address] [facility] Comment on above: Performed By: #### T SH, LIVER, LIPID, BMP, T7 #### [facility] [address] [place] [address] Dr. Robetro Cabral LYMPH # 1.9 103/ul Normal 1.2-3.[address] [facility] Comment on above: Performed By: #### T SH, LIVER, LIPID, BMP, T7 #### [facility] [address] [place] [address] Dr. Roberto Cabral Lymphocytes/100 WBC (Bld) 21.0 % Normal 20.5-60.[address] [facility] Comment on above: Performed By: #### T SH, LIVER, LIPID, BMP, T7 #### [facility] [address] [place] [address] Dr. Roberto Cabral MANUAL DIFF REQ NO Normal [facility] Comment on above: Performed By: #### T SH, LIVER, LIPID, BMP, T7 #### [facility] [address] [place] [address] Dr. Roberto Cabral MCH (RBC) [Entitic mass] 22.7 pg Critically low 25.9-34.0 [facility] Comment on above: Performed By: #### T SH, LIVER, LIPID, BMP, T7 #### [facility] [address] [place] [address] Dr. Roberto Cabral MCHC (RBC) [Mass/Vol] 29.7 g/dL Critically low 29.9-35.2 [facility] Comment on above: Performed By: #### T SH, LIVER, LIPID, BMP, T7 #### [facility] [address] [address] [address] Roberto Cabral MCV (RBC) [Entitic vol] 76.6 fL Critically low 80.0-94.0 [facility] Comment on above: Performed By: #### T SH, LIVER, LIPID, BMP, T7 #### [facility] [address] [place] [address] Dr. Roberto Cabral MONO # 0.9 103/ul Critically high 0.3-0.8 [facility] Comment on above: Performed By: #### T SH, LIVER, LIPID, BMP, T7 #### [facility] [address] [place] [address] Dr. Roberto Cabral Monocytes/100 WBC (Bld) 10.0 % Normal 1.7-12.0 [facility] Comment on above: Performed By: #### T SH, LIVER, LIPID, BMP, T7 #### [facility] [address] [place] [address] Dr. Roberto Cabral NEUT # 5.7 103/ul Normal 1.4-6.5 [facility] Comment on above: Performed By: #### T SH, LIVER, LIPID, BMP, T7 #### [facility] [address] [address] [address] Roberto Cabral Neutrophils/100 WBC (Bld) 62.7 % Normal 43.0-75.0 [facility] Comment on above: Performed By: #### T SH, LIVER, LIPID, BMP, T7 #### [facility] [address] [address] [address] Roberto Cabral Platelet mean volume (Bld) [Entitic vol] 9.8 fL Normal 9.5-13.[address] [facility] Comment on above: Performed By: #### T SH, LIVER, LIPID, BMP, T7 #### [facility] [address] [address] [address] Roberto Cabral PLT 290 103/ul Normal 150-450 [facility] Comment on above: Performed By: #### T SH, LIVER, LIPID, BMP, T7 #### [facility] [address] [address] [address] Roberto Cabral RBC 4.49 106/ul Critically low 4.70-6.10 [facility] Comment on above: Performed By: #### T SH, LIVER, LIPID, BMP, T7 #### [facility] [address] [address] [address] Roberto Cabral WBC 9.1 103/ul Normal 4.0-11.[address] [facility] Comment on above: Performed By: #### T SH, LIVER, LIPID, BMP, T7 #### [facility] [address] [place] [address] Dr. Roberto Cabral FREE THYROXINE INDEX T7on FTI 2.73 Normal 1.30-4.[address] [facility] Comment on above: Performed By: #### T SH, LIVER, LIPID, BMP, T7 #### [facility] [address] [place] [address] Dr. Roberto Cabral T3U 35.0 % Normal 33.0-40.[address] [facility] Comment on above: Performed By: #### T SH, LIVER, LIPID, BMP, T7 #### [facility] [address] [address] [address] Roberto Cabral T4 [Mass/Vol] 7.80 ug/dL Normal 4.50-12.10 [facility] Comment on above: Performed By: #### T SH, LIVER, LIPID, BMP, T7 #### [facility] [address] [place] [address] Dr. Roberto Cabral GLYCOHEMOGLOBIN A1Con 2022 ADA RECOMMENDATION SEE BELOW Normal [facility] Comment on above: Result Comment: ADA RECOMMENDED LIMIT 4.0 - 6.0 ADA THERAPEUTIC TARGET < 7.0 ACTION SUGGESTED > 7.0 Performed By: #### A 1C #### [facility] [address] [place] [address] Dr. Roberto Cabral Glucose [Mass/Vol] 126 mg/dL Normal [facility] Comment on above: Performed By: #### A 1C #### [facility] [address] [address] [address] Roberto Cabral HbA1c (Bld) [Mass fraction] 6.0 % Normal 4.5-6.[address] [facility] Comment on above: Performed By: #### A 1C #### [facility] [address] [place] [address] Dr. Roberto Cabral LIPID PROFILEon 10-14-2022 CHOL-HDL RATIO NORM SEE BELOW Normal [facility] Comment on above: Result Comment: 3.3 - 4.4 LOW RISK 4.4 - 7.1 AVERAGE RISK 7.1 - 11.0 MODERATE RISK >11.0 HIGH RISK Performed By: #### T SH, LIVER, LIPID, BMP, T7 #### [facility] [address] [place] [address] Dr. Roberto Cabral Cholesterol [Mass/Vol] 129 mg/dL Normal <=[address] [facility] Comment on above: Performed By: #### T SH, LIVER, LIPID, BMP, T7 #### [facility] [address] [place] [address] Dr. Roberto Cabral Cholesterol in HDL [Mass/Vol] 45 mg/dL Normal 40-[address] [facility] Comment on above: Performed By: #### T SH, LIVER, LIPID, BMP, T7 #### [facility] [address] [address] [address] Roberto Cabral Cholesterol in LDL [Mass/Vol] 62.4 mg/dL Normal [facility] Comment on above: Performed By: #### T SH, LIVER, LIPID, BMP, T7 #### [facility] [address] [place] [address] Dr. Roberto Cabral Cholesterol.total/Ch olesterol in HDL [Mass ratio] 2.9 {ratio} Normal [facility] Comment on above: Performed By: #### T SH, LIVER, LIPID, BMP, T7 #### [facility] [address] [address] [address] Roberto Cabral HDL NORMAL > or = 60 mg/dl - LO W CARDIOVASCULAR RISK <40 mg/dl - HIGH CARDIOVASCULAR RISK Normal [facility] Comment on above: Performed By: #### T SH, LIVER, LIPID, BMP, T7 #### [facility] [address] [address] [address] Roberto Cabral LDL CALC NORMAL SEE BELOW Normal [facility] Comment on above: Result Comment: <100 mg/dl OPTIMAL 100 - 129 mg/dl NEAR OR ABOVE OPTIMAL 130 - 159 mg/dl BORDERLINE HIGH 160 - 189 mg/dl HIGH >190 mg/dl VERY HIGH Performed By: #### T SH, LIVER, LIPID, BMP, T7 #### [facility] [address] [address] [address] Roberto Cabral Triglyceride [Mass/Vol] 108 mg/dL Normal <=[address] [facility] Comment on above: Performed By: #### T SH, LIVER, LIPID, BMP, T7 #### [facility] [address] [address] [address] Roberto Cabral VLDL CALC 21.6 mg/dL Normal [facility] Comment on above: Performed By: #### T SH, LIVER, LIPID, BMP, T7 #### [facility] [address] [address] [address] Roberto Cabral LIVER PROFILEon 10-14-2022 Albumin [Mass/Vol] 3.6 g/dL Normal 3.4-5.0 [facility] Comment on above: Performed By: #### T SH, LIVER, LIPID, BMP, T7 #### [facility] [address] [address] [address] Roberto Cabral Albumin/Globulin [Mass ratio] 1.0 {ratio} Normal [facility] Comment on above: Performed By: #### T SH, LIVER, LIPID, BMP, T7 #### [facility] [address] [address] [address] Roberto Cabral ALP [Catalytic activity/Vol] 80 U/L Normal 46-[address] [facility] Comment on above: Performed By: #### T SH, LIVER, LIPID, BMP, T7 #### [facility] [address] [address] [address] Roberto Cabral ALT [Catalytic activity/Vol] 21 U/L Normal 16-[address] [facility] Comment on above: Performed By: #### T SH, LIVER, LIPID, BMP, T7 #### [facility] [address] [address] [address] Roberto Cabral AST [Catalytic activity/Vol] 14 U/L Critically low 15-[address] [facility] Comment on above: Performed By: #### T SH, LIVER, LIPID, BMP, T7 #### [facility] [address] [place] [address] Dr. oRberto Cabral BILI, CONJUGATED 0.1 mg/dL Normal 0.0-0.2 [facility] Comment on above: Performed By: #### T SH, LIVER, LIPID, BMP, T7 #### [facility] [address] [place] [address] Dr. Roberto Cabral Bilirubin [Mass/Vol] 0.2 mg/dL Normal 0.2-1.[address] [facility] Comment on above: Performed By: #### T SH, LIVER, LIPID, BMP, T7 #### [facility] [address] [place] [address] Dr. Roberto Cabral Globulin (S) [Mass/Vol] 3.6 g/dL Normal [facility] Comment on above: Performed By: #### T SH, LIVER, LIPID, BMP, T7 #### [facility] [address] [place] [address] Dr. Roberto Cabral Protein [Mass/Vol] 7.2 g/dL Normal 6.4-8.2 [facility] Comment on above: Performed By: #### T SH, LIVER, LIPID, BMP, T7 #### [facility] [address] [place] [address] Dr. Roberto Cabral PROF CHEM 8 (BAS METB)on Anion gap [Moles/Vol] 13.9 mmol/L Normal [facility] Comment on above: Performed By: #### T SH, LIVER, LIPID, BMP, T7 #### [facility] [address] [address] [address] Roberto Cabral Calcium [Mass/Vol] 9.2 mg/dL Normal 8.5-10.1 [facility] Comment on above: Performed By: #### T SH, LIVER, LIPID, BMP, T7 #### [facility] [address] [address] [address] Roberto Cabral Chloride [Moles/Vol] 110 mmol/L Critically high 98-[address] [facility] Comment on above: Performed By: #### T SH, LIVER, LIPID, BMP, T7 #### [facility] [address] [place] [address] Dr. Roberto Cabral CO2 [Moles/Vol] 26.2 mmol/L Normal 21.0-32.0 [facility] Comment on above: Performed By: #### T SH, LIVER, LIPID, BMP, T7 #### [facility] [address] [place] [address] Dr. Roberto Cabral Creatinine [Mass/Vol] 1.02 mg/dL Normal 0.70-1.[address] [facility] Comment on above: Performed By: #### T SH, LIVER, LIPID, BMP, T7 #### [facility] [address] [place] [address] Dr. Roberto Cabral EGFR-AF PERUVIAN >60 Normal >=60 [facility] Comment on above: Performed By: #### T SH, LIVER, LIPID, BMP, T7 #### [facility] [address] [place] [address] Dr. Roberto Cabral EGFR-NON AF PERUVIAN >60 Normal >=[address] [facility] Comment on above: Performed By: #### T SH, LIVER, LIPID, BMP, T7 #### [facility] [address] [place] [address] Dr. Roberto Cabral Glucose [Mass/Vol] 120 mg/dL Critically high 74-106 [facility] Comment on above: Performed By: #### T SH, LIVER, LIPID, BMP, T7 #### [facility] [address] [address] [address] Roberto Cabral Potassium [Moles/Vol] 4.1 mmol/L Normal 3.5-5.[address] [facility] Comment on above: Performed By: #### T SH, LIVER, LIPID, BMP, T7 #### [facility] [address] [place] [address] Dr. Roberto Cabral Sodium [Moles/Vol] 146 mmol/L Critically high 136-145 [facility] Comment on above: Performed By: #### T SH, LIVER, LIPID, BMP, T7 #### [facility] [address] [place] [address] Dr. Roberto Cabral Urea nitrogen [Mass/Vol] 26.0 mg/dL Critically high 7.0-18.[address] [facility] Comment on above: Performed By: #### T SH, LIVER, LIPID, BMP, T7 #### [facility] [address] [place] [address] Dr. Roberto Cabral Urea nitrogen/Creatinine [Mass ratio] 25.5 mg/mg Normal [facility] Comment on above: Performed By: #### T SH, LIVER, LIPID, BMP, T7 #### [facility] [address] [place] [address] Dr. Roberto Cabral TSHon 10-14-2022 TSH 1.674 uIU/mL Normal 0.358-3.740 [facility] Comment on above: Performed By: #### T SH, LIVER, LIPID, BMP, T7 #### [facility] [address] [place] [address] Dr. Roberto Cabral [facility]01 SARS-CoV-2 (COVID-19) RNA JOSÉ+probe Ql (Unsp spec) Detected Critically abnormal NOT DETECTED [facility] Comment on above: Result Comment: This test is not yet approved or cleared by the [place] FDA. When there are no FDA-approved or cleared tests available, and other criteria are met, FDA can make tests available under an emergency access mechanism called an Emergency Use Authorization (EUA). The EUA for this test is supported by the [employer] of Health and Human Service's (HHS's) declaration [...] T SH, LIVER, LIPID, BMP, T7 #### [facility] [address] [place] [address] Dr. Roberto Cabral PROF 14(COMP METB)on 022 Albumin [Mass/Vol] 3.3 g/dL Critically low 3.4-5.0 [facility] Comment on above: Performed By: #### T SH, LIVER, LIPID, BMP, T7 #### [facility] [address] [place] [address] Dr. Roberto Cabral Albumin/Globulin [Mass ratio] 1.0 {ratio} Normal [facility] Comment on above: Performed By: #### T SH, LIVER, LIPID, BMP, T7 #### [facility] [address] [place] [address] Dr. Roberto Cabral ALP [Catalytic activity/Vol] 95 U/L Normal 46-[address] [facility] Comment on above: Performed By: #### T SH, LIVER, LIPID, BMP, T7 #### [facility] [address] [place] [address] Dr. Roberto Cabral ALT [Catalytic activity/Vol] 22 U/L Normal 16-[address] [facility] Comment on above: Performed By: #### T SH, LIVER, LIPID, BMP, T7 #### [facility] [address] [place] [address] Dr. Roberto Cabral Anion gap [Moles/Vol] 14.0 mmol/L Normal [facility] Comment on above: Performed By: #### T SH, LIVER, LIPID, BMP, T7 #### [facility] [address] [place] [address] Dr. Roberto Cabral AST [Catalytic activity/Vol] 12 U/L Critically low 15-[address] [facility] Comment on above: Performed By: #### T SH, LIVER, LIPID, BMP, T7 #### [facility] [address] [place] [address] Dr. Roberto Cabral Bilirubin [Mass/Vol] 0.2 mg/dL Normal 0.2-1.[address] [facility] Comment on above: Performed By: #### T SH, LIVER, LIPID, BMP, T7 #### [facility] [address] [address] [address] Roberto Cabral Calcium [Mass/Vol] 8.6 mg/dL Normal 8.5-10.1 [facility] Comment on above: Performed By: #### T SH, LIVER, LIPID, BMP, T7 #### [facility] [address] [place] [address] Dr. Roberto Cabral Chloride [Moles/Vol] 110 mmol/L Critically high 98-[address] [facility] Comment on above: Performed By: #### T SH, LIVER, LIPID, BMP, T7 #### [facility] [address] [place] [address] Dr. Roberto Cabral CO2 [Moles/Vol] 22.6 mmol/L Normal 21.0-32.0 [facility] Comment on above: Performed By: #### T SH, LIVER, LIPID, BMP, T7 #### [facility] [address] [place] [address] Dr. Roberto Cabral Creatinine [Mass/Vol] 1.05 mg/dL Normal 0.70-1.[address] [facility] Comment on above: Performed By: #### T SH, LIVER, LIPID, BMP, T7 #### [facility] [address] [place] [address] Dr. Roberto Cabral EGFR-AF PERUVIAN >60 Normal >=60 [facility] Comment on above: Performed By: #### T SH, LIVER, LIPID, BMP, T7 #### [facility] [address] [place] [address] Dr. Roberto Cabral EGFR-NON AF PERUVIAN >60 Normal >=[address] [facility] Comment on above: Performed By: #### T SH, LIVER, LIPID, BMP, T7 #### [facility] [address] [place] [address] Dr. Roberto Cabral Globulin (S) [Mass/Vol] 3.2 g/dL Normal [facility] Comment on above: Performed By: #### T SH, LIVER, LIPID, BMP, T7 #### [facility] [address] [place] [address] Dr. Roberto Cabral Glucose [Mass/Vol] 172 mg/dL Critically high 74-106 [facility] Comment on above: Performed By: #### T SH, LIVER, LIPID, BMP, T7 #### [facility] [address] [place] [address] Dr. Roberto Cabral Potassium [Moles/Vol] 4.6 mmol/L Normal 3.5-5.[address] [facility] Comment on above: Performed By: #### T SH, LIVER, LIPID, BMP, T7 #### [facility] [address] [place] [address] Dr. Roberto Cabral Protein [Mass/Vol] 6.5 g/dL Normal 6.4-8.2 [facility] Comment on above: Performed By: #### T SH, LIVER, LIPID, BMP, T7 #### [facility] [address] [place] [address] Dr. Roberto Cabral Sodium [Moles/Vol] 142 mmol/L Normal 136-145 [facility] Comment on above: Performed By: #### T SH, LIVER, LIPID, BMP, T7 #### [facility] [address] [place] [address] Dr. Roberto Cabral Urea nitrogen [Mass/Vol] 14.0 mg/dL Normal 7.0-18.[address] [facility] Comment on above: Performed By: #### T SH, LIVER, LIPID, BMP, T7 #### [facility] [address] [place] [address] Dr. Roberto Cabral Urea nitrogen/Creatinine [Mass ratio] 13.3 mg/mg Normal [facility] Comment on above: Performed By: #### T SH, LIVER, LIPID, BMP, T7 #### [facility] [address] [place] [address] Dr. Roberto Cabral CBC AUTO DIFFon 12-11-2021 BASO # 0.1 103/ul Normal 0.0-0.[address] [facility] Comment on above: Performed By: #### T SH, LIVER, LIPID, BMP, T7 #### [facility] [address] [place] [address] Dr. Roberto Cabral Basophils/100 WBC (Bld) 0.3 % Normal 0.2-2.0 [facility] Comment on above: Performed By: #### T SH, LIVER, LIPID, BMP, T7 #### [facility] [address] [place] [address] Dr. Roberto Cabral EO # 0.7 103/ul Normal 0.0-0.7 [facility] Comment on above: Performed By: #### T SH, LIVER, LIPID, BMP, T7 #### [facility] [address] [place] [address] Dr. Roberto Cabral Eosinophils/100 WBC (Bld) 4.5 % Normal 0.9-7.0 [facility] Comment on above: Performed By: #### T SH, LIVER, LIPID, BMP, T7 #### [facility] [address] [place] [address] Dr. Roberto Cabral Erythrocyte distribution width (RBC) [Ratio] 15.7 % Critically high 11.0-15.0 [facility] Comment on above: Performed By: #### T SH, LIVER, LIPID, BMP, T7 #### [facility] [address] [place] [address] Dr. Roberto Cabral Hematocrit (Bld) [Volume fraction] 33.3 % Critically low 42.0-54.0 [facility] Comment on above: Performed By: #### T SH, LIVER, LIPID, BMP, T7 #### [facility] [address] [place] [address] Dr. Roberto Cabral Hemoglobin (Bld) [Mass/Vol] 10.3 g/dL Critically low 14.0-18.0 [facility] Comment on above: Performed By: #### T SH, LIVER, LIPID, BMP, T7 #### [facility] [address] [address] [address] Roberto Cabral IG # 0.08 10e3/ul Critically high 0.00-0.03 [facility] Comment on above: Performed By: #### T SH, LIVER, LIPID, BMP, T7 #### [facility] [address] [place] [address] Dr. Roberto Cabral IG % 0.5 % Normal 0.0-0.[address] [facility] Comment on above: Performed By: #### T SH, LIVER, LIPID, BMP, T7 #### [facility] [address] [place] [address] Dr. Roberto Cabral LYMPH # 1.3 103/ul Normal 1.2-3.[address] [facility] Comment on above: Performed By: #### T SH, LIVER, LIPID, BMP, T7 #### [facility] [address] [place] [address] Dr. Roberto Cabral Lymphocytes/100 WBC (Bld) 8.4 % Critically low 20.5-60.[address] [facility] Comment on above: Performed By: #### T SH, LIVER, LIPID, BMP, T7 #### [facility] [address] [place] [address] Dr. Roberto Cabral MANUAL DIFF REQ NO Normal [facility] Comment on above: Performed By: #### T SH, LIVER, LIPID, BMP, T7 #### [facility] [address] [place] [address] Dr. Roberto Cabral MCH (RBC) [Entitic mass] 27.9 pg Normal 25.9-34.[address] [facility] Comment on above: Performed By: #### T SH, LIVER, LIPID, BMP, T7 #### [facility] [address] [place] [address] Dr. Roberto Cabral MCHC (RBC) [Mass/Vol] 30.9 g/dL Normal 29.9-35.[address] [facility] Comment on above: Performed By: #### T SH, LIVER, LIPID, BMP, T7 #### [facility] [address] [place] [address] Dr. Roberto Cabral MCV (RBC) [Entitic vol] 90.2 fL Normal 80.0-94.[address] [facility] Comment on above: Performed By: #### T SH, LIVER, LIPID, BMP, T7 #### [facility] [address] [place] [address] Dr. Roberto Cabral MONO # 1.4 103/ul Critically high 0.3-0.8 [facility] Comment on above: Performed By: #### T SH, LIVER, LIPID, BMP, T7 #### [facility] [address] [place] [address] Dr. Roberto Cabral Monocytes/100 WBC (Bld) 8.9 % Normal 1.7-12.0 [facility] Comment on above: Performed By: #### T SH, LIVER, LIPID, BMP, T7 #### [facility] [address] [place] [address] Dr. Roberto Cabral NEUT # 12.0 103/ul Critically high 1.4-6.5 [facility] Comment on above: Performed By: #### T SH, LIVER, LIPID, BMP, T7 #### [facility] [address] [place] [address] Dr. Roberto Cabral Neutrophils/100 WBC (Bld) 77.4 % Critically high 43.0-75.[address] [facility] Comment on above: Performed By: #### T SH, LIVER, LIPID, BMP, T7 #### [facility] [address] [place] [address] Dr. Roberto Cabral Platelet mean volume (Bld) [Entitic vol] 10.3 fL Normal 9.5-13.5 [facility] Comment on above: Performed By: #### T SH, LIVER, LIPID, BMP, T7 #### [facility] [address] [place] [address] Dr. Roberto Cabral PLT 286 103/ul Normal 150-450 [facility] Comment on above: Performed By: #### T SH, LIVER, LIPID, BMP, T7 #### [facility] [address] [place] [address] Dr. Roberto Cabral RBC 3.69 106/ul Critically low 4.70-6.10 [facility] Comment on above: Performed By: #### T SH, LIVER, LIPID, BMP, T7 #### [facility] [address] [address] [address] Roberto Cabral WBC 15.4 103/ul Critically high 4.0-11.0 [facility] Comment on above: Performed By: #### T SH, LIVER, LIPID, BMP, T7 #### [facility] [address] [address] [address] Roberto Cabral POINT OF CARE GLUCOSEon 12-01 Glucose [Mass/Vol] 122 mg/dL Critically high 74-106 [facility] Comment on above: Performed By: #### T SH, LIVER, LIPID, BMP, T7 #### [facility] [address] [place] [address] Dr. Roberto Cabral PROF 14(COMP METB)on 022 Albumin [Mass/Vol] 2.8 g/dL Critically low 3.4-5.0 [facility] Comment on above: Performed By: #### T SH, LIVER, LIPID, BMP, T7 #### [facility] [address] [address] [address] Roberto Cabral Albumin/Globulin [Mass ratio] 1.0 {ratio} Normal [facility] Comment on above: Performed By: #### T SH, LIVER, LIPID, BMP, T7 #### [facility] [address] [address] [address] Roberto Cabral ALP [Catalytic activity/Vol] 66 U/L Normal 46-[address] [facility] Comment on above: Performed By: #### T SH, LIVER, LIPID, BMP, T7 #### [facility] [address] [address] [address] Roberto Cabral ALT [Catalytic activity/Vol] 15 U/L Critically low 16-[address] [facility] Comment on above: Performed By: #### T SH, LIVER, LIPID, BMP, T7 #### [facility] [address] [address] [address] Roberto Cabral Anion gap [Moles/Vol] 15.2 mmol/L Normal [facility] Comment on above: Performed By: #### T SH, LIVER, LIPID, BMP, T7 #### [facility] [address] [address] [address] Roberto Cabral AST [Catalytic activity/Vol] 15 U/L Normal 15-[address] [facility] Comment on above: Performed By: #### T SH, LIVER, LIPID, BMP, T7 #### [facility] [address] [place] [address] Dr. Roberto Cabral Bilirubin [Mass/Vol] 0.2 mg/dL Normal 0.2-1.[address] [facility] Comment on above: Performed By: #### T SH, LIVER, LIPID, BMP, T7 #### [facility] [address] [place] [address] Dr. Roberto Cabrla Calcium [Mass/Vol] 8.4 mg/dL Critically low 8.5-10.1 [facility] Comment on above: Performed By: #### T SH, LIVER, LIPID, BMP, T7 #### [facility] [address] [place] [address] Dr. Roberto Cabral Chloride [Moles/Vol] 114 mmol/L Critically high 98-[address] [facility] Comment on above: Performed By: #### T SH, LIVER, LIPID, BMP, T7 #### [facility] [address] [place] [address] Dr. Roberto Cabral CO2 [Moles/Vol] 17.2 mmol/L Critically low 21.0-32.[address] [facility] Comment on above: Performed By: #### T SH, LIVER, LIPID, BMP, T7 #### [facility] [address] [place] [address] Dr. Roberto Cabral Creatinine [Mass/Vol] 1.84 mg/dL Critically high 0.70-1.[address] [facility] Comment on above: Performed By: #### T SH, LIVER, LIPID, BMP, T7 #### [facility] [address] [place] [address] Dr. Roberto Cabral EGFR-AF PERUVIAN 44 mL/min/1.73m2 Critically low >=60 [facility] Comment on above: Performed By: #### T SH, LIVER, LIPID, BMP, T7 #### [facility] [address] [address] [address] Roberto Cabral EGFR-NON AF PERUVIAN 36 mL/min/1.73m2 Critically low >=[address] [facility] Comment on above: Performed By: #### T SH, LIVER, LIPID, BMP, T7 #### [facility] [address] [address] [address] Roberto Cabral Globulin (S) [Mass/Vol] 2.9 g/dL Normal [facility] Comment on above: Performed By: #### T SH, LIVER, LIPID, BMP, T7 #### [facility] [address] [place] [address] Dr. Roberto Cabral Glucose [Mass/Vol] 120 mg/dL Critically high 74-106 [facility] Comment on above: Performed By: #### T SH, LIVER, LIPID, BMP, T7 #### [facility] [address] [address] [address] Roberto Cabral Potassium [Moles/Vol] 5.4 mmol/L Critically high 3.5-5.[address] [facility] Comment on above: Performed By: #### T SH, LIVER, LIPID, BMP, T7 #### [facility] [address] [place] [address] Dr. Roberto Cabral Protein [Mass/Vol] 5.7 g/dL Critically low 6.4-8.2 [facility] Comment on above: Performed By: #### T SH, LIVER, LIPID, BMP, T7 #### [facility] [address] [address] [address] Roberto Cabral Sodium [Moles/Vol] 141 mmol/L Normal 136-145 [facility] Comment on above: Performed By: #### T SH, LIVER, LIPID, BMP, T7 #### [facility] [address] [place] [address] Dr. Roberto Cabral Urea nitrogen [Mass/Vol] 56.0 mg/dL Critically high 7.0-18.[address] [facility] Comment on above: Performed By: #### T SH, LIVER, LIPID, BMP, T7 #### [facility] [address] [address] [address] Roberto Cabral Urea nitrogen/Creatinine [Mass ratio] 30.4 mg/mg Normal [facility] Comment on above: Performed By: #### T SH, LIVER, LIPID, BMP, T7 #### [facility] [address] [address] [address] Roberto Cabral PROF CHEM 8 (BAS METB)on Anion gap [Moles/Vol] 13.3 mmol/L Normal [facility] Comment on above: Performed By: #### T SH, LIVER, LIPID, BMP, T7 #### [facility] [address] [place] [address] Dr. Roberto Cabral Calcium [Mass/Vol] 8.3 mg/dL Critically low 8.5-10.1 [facility] Comment on above: Performed By: #### T SH, LIVER, LIPID, BMP, T7 #### [facility] [address] [place] [address] Dr. Roberto Cabral Chloride [Moles/Vol] 113 mmol/L Critically high 98-[address] [facility] Comment on above: Performed By: #### T SH, LIVER, LIPID, BMP, T7 #### [facility] [address] [place] [address] Dr. Roberto Cabral CO2 [Moles/Vol] 19.4 mmol/L Critically low 21.0-32.[address] [facility] Comment on above: Performed By: #### T SH, LIVER, LIPID, BMP, T7 #### [facility] [address] [place] [address] Dr. Roberto Cabral Creatinine [Mass/Vol] 1.49 mg/dL Critically high 0.70-1.[address] [facility] Comment on above: Performed By: #### T SH, LIVER, LIPID, BMP, T7 #### [facility] [address] [place] [address] Dr. Roberto Cabral EGFR-AF PERUVIAN 56 mL/min/1.73m2 Critically low >=[address] [facility] Comment on above: Performed By: #### T SH, LIVER, LIPID, BMP, T7 #### [facility] [address] [address] [address] Roberto Cabral EGFR-NON AF PERUVIAN 46 mL/min/1.73m2 Critically low >=[address] [facility] Comment on above: Performed By: #### T SH, LIVER, LIPID, BMP, T7 #### [facility] [address] [address] [address] Roberto Cabral Glucose [Mass/Vol] 142 mg/dL Critically high 74-106 [facility] Comment on above: Performed By: #### T SH, LIVER, LIPID, BMP, T7 #### [facility] [address] [place] [address] Dr. Roberto Cabral Potassium [Moles/Vol] 5.7 mmol/L Critically high 3.5-5.[address] [facility] Comment on above: Performed By: #### T SH, LIVER, LIPID, BMP, T7 #### [facility] [address] [place] [address] Dr. Roberto Cabral Sodium [Moles/Vol] 140 mmol/L Normal 136-145 [facility] Comment on above: Performed By: #### T SH, LIVER, LIPID, BMP, T7 #### [facility] [address] [place] [address] Dr. Roberto Cabral Urea nitrogen [Mass/Vol] 46.0 mg/dL Critically high 7.0-18.[address] [facility] Comment on above: Performed By: #### T SH, LIVER, LIPID, BMP, T7 #### [facility] [address] [place] [address] Dr. Roberto Cabral Urea nitrogen/Creatinine [Mass ratio] 30.9 mg/mg Normal [facility] Comment on above: Performed By: #### T SH, LIVER, LIPID, BMP, T7 #### [facility] [address] [place] [address] Dr. Roberto Cabral BNPon 12-10-2021 Natriuretic peptide B (Bld) [Mass/Vol] 167.0 pg/mL Normal <=1,800.[address] [facility] Comment on above: Performed By: #### T SH, LIVER, LIPID, BMP, T7 #### [facility] [address] [place] [address] Dr. Roberto Cabral CBC AUTO DIFFon 12-10-2021 BASO # 0.1 103/ul Normal 0.0-0.[address] [facility] Comment on above: Performed By: #### T SH, LIVER, LIPID, BMP, T7 #### [facility] [address] [place] [address] Dr. Roberto Cabral Basophils/100 WBC (Bld) 0.3 % Normal 0.2-2.0 [facility] Comment on above: Performed By: #### T SH, LIVER, LIPID, BMP, T7 #### [facility] [address] [place] [address] Dr. Roberto Cabral EO # 0.4 103/ul Normal 0.0-0.7 [facility] Comment on above: Performed By: #### T SH, LIVER, LIPID, BMP, T7 #### [facility] [address] [place] [address] Dr. Roberto Cabral Eosinophils/100 WBC (Bld) 2.6 % Normal 0.9-7.0 [facility] Comment on above: Performed By: #### T SH, LIVER, LIPID, BMP, T7 #### [facility] [address] [place] [address] Dr. Roberto Cabral Erythrocyte distribution width (RBC) [Ratio] 15.7 % Critically high 11.0-15.0 [facility] Comment on above: Performed By: #### T SH, LIVER, LIPID, BMP, T7 #### [facility] [address] [place] [address] Dr. Roberto Cabral Hematocrit (Bld) [Volume fraction] 36.1 % Critically low 42.0-54.0 [facility] Comment on above: Performed By: #### T SH, LIVER, LIPID, BMP, T7 #### [facility] [address] [place] [address] Dr. Roberto Cabral Hemoglobin (Bld) [Mass/Vol] 11.5 g/dL Critically low 14.0-18.0 [facility] Comment on above: Performed By: #### T SH, LIVER, LIPID, BMP, T7 #### [facility] [address] [address] [address] Roberto Cabral IG # 0.07 10e3/ul Critically high 0.00-0.03 [facility] Comment on above: Performed By: #### T SH, LIVER, LIPID, BMP, T7 #### [facility] [address] [place] [address] Dr. Roberto Cabral IG % 0.4 % Normal 0.0-0.[address] [facility] Comment on above: Performed By: #### T SH, LIVER, LIPID, BMP, T7 #### [facility] [address] [place] [address] Dr. Roberto Cabral LYMPH # 1.4 103/ul Normal 1.2-3.8 [facility] Comment on above: Performed By: #### T SH, LIVER, LIPID, BMP, T7 #### [facility] [address] [place] [address] Dr. Roberto Cabral Lymphocytes/100 WBC (Bld) 9.0 % Critically low 20.5-60.[address] [facility] Comment on above: Performed By: #### T SH, LIVER, LIPID, BMP, T7 #### [facility] [address] [place] [address] Dr. Roberto Cabral MANUAL DIFF REQ NO Normal [facility] Comment on above: Performed By: #### T SH, LIVER, LIPID, BMP, T7 #### [facility] [address] [place] [address] Dr. Roberto Cabral MCH (RBC) [Entitic mass] 28.1 pg Normal 25.9-34.0 [facility] Comment on above: Performed By: #### T SH, LIVER, LIPID, BMP, T7 #### [facility] [address] [place] [address] Dr. Roberto Cabral MCHC (RBC) [Mass/Vol] 31.9 g/dL Normal 29.9-35.2 [facility] Comment on above: Performed By: #### T SH, LIVER, LIPID, BMP, T7 #### [facility] [address] [place] [address] Dr. Roberto Cabral MCV (RBC) [Entitic vol] 88.3 fL Normal 80.0-94.[address] [facility] Comment on above: Performed By: #### T SH, LIVER, LIPID, BMP, T7 #### [facility] [address] [place] [address] Dr. Roberto Cabral MONO # 1.4 103/ul Critically high 0.3-0.8 [facility] Comment on above: Performed By: #### T SH, LIVER, LIPID, BMP, T7 #### [facility] [address] [place] [address] Dr. Roberto Cabral Monocytes/100 WBC (Bld) 8.8 % Normal 1.7-12.0 [facility] Comment on above: Performed By: #### T SH, LIVER, LIPID, BMP, T7 #### [facility] [address] [place] [address] Dr. Roberto Cabral NEUT # 12.3 103/ul Critically high 1.4-6.5 [facility] Comment on above: Performed By: #### T SH, LIVER, LIPID, BMP, T7 #### [facility] [address] [place] [address] Dr. Roberto Cabral Neutrophils/100 WBC (Bld) 78.9 % Critically high 43.0-75.0 [facility] Comment on above: Performed By: #### T SH, LIVER, LIPID, BMP, T7 #### [facility] [address] [place] [address] Dr. Roberto Cabral Platelet mean volume (Bld) [Entitic vol] 10.5 fL Normal 9.5-13.5 [facility] Comment on above: Performed By: #### T SH, LIVER, LIPID, BMP, T7 #### [facility] [address] [place] [address] Dr. Roberto Cabral PLT 316 103/ul Normal 150-450 [facility] Comment on above: Performed By: #### T SH, LIVER, LIPID, BMP, T7 #### [facility] [address] [place] [address] Dr. Roberto Cabral RBC 4.09 106/ul Critically low 4.70-6.10 [facility] Comment on above: Performed By: #### T SH, LIVER, LIPID, BMP, T7 #### [facility] [address] [place] [address] Dr. Roberto Cabral WBC 15.6 103/ul Critically high 4.0-11.0 [facility] Comment on above: Performed By: #### T SH, LIVER, LIPID, BMP, T7 #### [facility] [address] [place] [address] Dr. Roberto Cabral CULTURE URINEon 12-10-2021 CULTURE URINE Culture Observations : No growth Normal [facility] Comment on above: Performed By: #### T SH, LIVER, LIPID, BMP, T7 #### [facility] [address] [place] [address] Dr. Roberto Cabral ER URINE PROFILEon 2 Bilirubin Ql (U) Negative Normal NEGATIVE [facility] Comment on above: Performed By: #### E RUR #### [facility] [address] [place] [address] Dr. Roberto Cabral Clarity (U) CLEAR Normal CLEAR [facility] Comment on above: Performed By: #### E RUR #### [facility] [address] [place] [address] Dr. Roberto Cabral Color (U) LT. YELLOW Normal YELLOW [facility] Comment on above: Performed By: #### E RUR #### [facility] [address] [place] [address] Dr. Roberto TAPIA A micrscopic examination will be performed if indicated. Normal [facility] Comment on above: Performed By: #### E RUR #### [facility] [address] [place] [address] Dr. Roberto Cabral Glucose Ql (U) Negative Normal NEGATIVE [facility] Comment on above: Performed By: #### E RUR #### [facility] [address] [place] [address] Dr. Roberto Cabral Hemoglobin Ql (U) Negative Normal NEGATIVE [facility] Comment on above: Performed By: #### E RUR #### [facility] [address] [place] [address] Dr. Roberto Cabral Ketones Ql (U) Negative Normal NEGATIVE [facility] Comment on above: Performed By: #### E RUR #### [facility] [address] [place] [address] Dr. Roberto Cabral LEUKOCYTES Negative Normal NEGATIVE [facility] Comment on above: Performed By: #### E RUR #### [facility] [address] [place] [address] Dr. Roberto Cabral Nitrite Ql (U) Negative Normal NEGATIVE [facility] Comment on above: Performed By: #### E RUR #### [facility] [address] [place] [address] Dr. Roberto Cabral pH (U) 5.0 [pH] Normal 5-[address] [facility] Comment on above: Performed By: #### E RUR #### [facility] [address] [place] [address] Dr. Roberto Cabral SPEC GRAVITY 1.015 Normal 1.005-<=1.025 [facility] Comment on above: Performed By: #### E RUR #### [facility] [address] [place] [address] Dr. Roberto Cabral UA PROTEIN Negative Normal NEGATIVE/ TRACE [facility] Comment on above: Performed By: #### E RUR #### [facility] [address] [place] [address] Dr. Roberto Cabral UR MICRO IND NOT INDICATED Normal [facility] Comment on above: Performed By: #### E RUR #### [facility] [address] [place] [address] Dr. Roberto Cabral Urobilinogen Qn (U) 0.2 {Noman'U}/dL Normal 0.2 - 1. [address] [facility] Comment on above: Performed By: #### E RUR #### [facility] [address] [place] [address] Dr. Roberto Cabral GI PANEL (PCR)on 12-10-2021 Adenovirus F 40/41 Not detected Normal NOT DETECTED [facility] Comment on above: Performed By: #### T SH, LIVER, LIPID, BMP, T7 #### [facility] [address] [address] [address] Roberto Cabral Astrovirus Not detected Normal NOT DETECTED [facility] Comment on above: Performed By: #### T SH, LIVER, LIPID, BMP, T7 #### [facility] [address] [address] [address] Roberto Cabral C. Diff toxin A/B Not detected Normal NOT DETECTED [facility] Comment on above: Performed By: #### T SH, LIVER, LIPID, BMP, T7 #### [facility] [address] [address] [address] Roberto Cabral Campylobacter Not detected Normal NOT DETECTED [facility] Comment on above: Performed By: #### T SH, LIVER, LIPID, BMP, T7 #### [facility] [address] [address] [address] Roberto Cabral Cryptosporidium Not detected Normal NOT DETECTED [facility] Comment on above: Performed By: #### T SH, LIVER, LIPID, BMP, T7 #### [facility] [address] [place] [address] Dr. Roberto Cabral Cyclos. Cayetanensis Not detected Normal NOT DETECTED [facility] Comment on above: Performed By: #### T SH, LIVER, LIPID, BMP, T7 #### [facility] [address] [address] [address] Roberto Cabral E. Coli O157 Not Applicable Normal Not Applicable [facility] Comment on above: Performed By: #### T SH, LIVER, LIPID, BMP, T7 #### [facility] [address] [address] [address] Roberto Cabral E. histolytica Not detected Normal NOT DETECTED [facility] Comment on above: Performed By: #### T SH, LIVER, LIPID, BMP, T7 #### [facility] [address] [address] [address] Roberto Cabral EAEC Not detected Normal NOT DETECTED [facility] Comment on above: Performed By: #### T SH, LIVER, LIPID, BMP, T7 #### [facility] [address] [address] [address] Roberto Cabral EIEC Not detected Normal NOT DETECTED [facility] Comment on above: Performed By: #### T SH, LIVER, LIPID, BMP, T7 #### [facility] [address] [address] [address] Roberto Cabral EPEC Not detected Normal NOT DETECTED [facility] Comment on above: Performed By: #### T SH, LIVER, LIPID, BMP, T7 #### [facility] [address] [address] [address] Roberto Cabral ETEC Not detected Normal NOT DETECTED [facility] Comment on above: Performed By: #### T SH, LIVER, LIPID, BMP, T7 #### [facility] [address] [place] [address] Dr[address] Roberto Mcgrathlia Not detected Normal NOT DETECTED The [facility] Comment on above: Performed By: #### T SH, LIVER, LIPID, BMP, T7 #### [facility] [address] [address] [address] Roberto CARDENAS CONTROLS PASSED Normal [facility] Comment on above: Performed By: #### T SH, LIVER, LIPID, BMP, T7 #### [facility] [address] [address] [address] Roberto MAXWELL JAIRO HEADER GI PANEL BACTERIA Normal T [facility] Comment on above: Performed By: #### T SH, LIVER, LIPID, BMP, T7 #### [facility] [address] [address] [address] Roberto IVEY ECOLI GI PANEL DIARRHEAGENIC E.COLI / SHIGELLA Normal [facility] Comment on above: Performed By: #### T SH, LIVER, LIPID, BMP, T7 #### [facility] [address] [address] [address] Roberto IVEY INFO SEE BELOW Normal [facility] Comment on above: Result Comment: EAEC - Enteroaggregative E. Coli EPEC- Enteropathogenic E. Coli ETEC- Enterotoxigenic E. Coli lt/st STEC- Shigella-like toxin-producing E. Coli stx1/stx2 EIEC- Shigella/Enteroinvasive E. Coli Performed By: #### T SH, LIVER, LIPID, BMP, T7 #### [facility] [address] [address] [address] Roberto IVEY PARASITES GI PANEL PARASITES Normal [facility] Comment on above: Performed By: #### T SH, LIVER, LIPID, BMP, T7 #### [facility] [address] [address] [address] Roberto IVEY VIRUS GI PANEL VIRUSES Normal The [facility] Comment on above: Performed By: #### T SH, LIVER, LIPID, BMP, T7 #### [facility] [address] [address] [address] Roberto Cabral Norovirus GI/GII Not detected Normal NOT DETECTED [facility] Comment on above: Performed By: #### T SH, LIVER, LIPID, BMP, T7 #### [facility] [address] [address] [address] Roberto Cabral P. Shigelloides Not detected Normal NOT DETECTED The [facility] Comment on above: Performed By: #### T SH, LIVER, LIPID, BMP, T7 #### [facility] [address] [address] [address] Roberto Cabral Rotavirus A Not detected Normal NOT DETECTED The [facility] Comment on above: Performed By: #### T SH, LIVER, LIPID, BMP, T7 #### [facility] [address] [address] [address] Roberto Cabral Salmonella Not detected Normal NOT DETECTED [facility] Comment on above: Performed By: #### T SH, LIVER, LIPID, BMP, T7 #### [facility] [address] [address] [address] Roberto Cabral Sapovirus Detected Abnormal NOT DETECTED [facility] Comment on above: Performed By: #### T SH, LIVER, LIPID, BMP, T7 #### [facility] [address] [address] [address] oRberto Cabral STEC Not detected Normal NOT DETECTED [facility] Comment on above: Performed By: #### T SH, LIVER, LIPID, BMP, T7 #### [facility] [address] [place] [address] Dr. Roberto Cabral Vibrio Not detected Normal NOT DETECTED [facility] Comment on above: Performed By: #### T SH, LIVER, LIPID, BMP, T7 #### [facility] [address] [place] [address] Dr. Roberto Cabral Vibrio Cholera Not detected Normal NOT DETECTED The [facility] Comment on above: Performed By: #### T SH, LIVER, LIPID, BMP, T7 #### [facility] [address] [place] [address] Dr. Roberto Cabral Y. Enterocolitica Not detected Normal NOT DETECTED [facility] Comment on above: Performed By: #### T SH, LIVER, LIPID, BMP, T7 #### [facility] [address] [place] [address] Dr. Roberto Cabral POINT OF CARE GLUCOSEon 12-01 0-2021 Glucose [Mass/Vol] 73 mg/dL Critically low 74-106 [facility] Comment on above: Performed By: #### P OCGLUC #### [facility] [address] [place] [address] Dr. Roberto Cabral Glucose [Mass/Vol] 69 mg/dL Critically low 74-106 [facility] Comment on above: Performed By: #### T SH, LIVER, LIPID, BMP, T7 #### [facility] [address] [place] [address] Dr. Roberto Cabral Glucose [Mass/Vol] 99 mg/dL Normal 74-106 [facility] Comment on above: Performed By: #### P OCGLUC #### [facility] [address] [place] [address] Dr. Roberto Cabral Glucose [Mass/Vol] 67 mg/dL Critically low 74-106 [facility] Comment on above: Performed By: #### T SH, LIVER, LIPID, BMP, T7 #### [facility] [address] [address] [address] Roberto Cabral Glucose [Mass/Vol] 74 mg/dL Normal 74-106 [facility] Comment on above: Performed By: #### P OCGLUC #### [facility] [address] [address] [address] Roberto Cabral Glucose [Mass/Vol] 55 mg/dL Critically low 74-106 [facility] Comment on above: Performed By: #### T SH, LIVER, LIPID, BMP, T7 #### [facility] [address] [place] [address] Dr. Roberto Cabral PROF 14(COMP METB)on 022 Albumin [Mass/Vol] 3.1 g/dL Critically low 3.4-5.0 [facility] Comment on above: Performed By: #### T SH, LIVER, LIPID, BMP, T7 #### [facility] [address] [place] [address] Dr. Roberto Cabral Albumin/Globulin [Mass ratio] 0.9 {ratio} [facility] Comment on above: Performed By: #### T SH, LIVER, LIPID, BMP, T7 #### [facility] [address] [address] [address] Roberto Cabral ALP [Catalytic activity/Vol] 73 U/L Normal 46-[address] [facility] Comment on above: Performed By: #### T SH, LIVER, LIPID, BMP, T7 #### [facility] [address] [place] [address] Dr. Roberto Cabral ALT [Catalytic activity/Vol] 17 U/L Normal 16-[address] [facility] Comment on above: Performed By: #### T SH, LIVER, LIPID, BMP, T7 #### [facility] [address] [address] [address] Roberto Cabral Anion gap [Moles/Vol] 17.7 mmol/L Normal [facility] Comment on above: Performed By: #### T SH, LIVER, LIPID, BMP, T7 #### [facility] [address] [address] [address] Roberto Cabral AST [Catalytic activity/Vol] 13 U/L Critically low 15-[address] [facility] Comment on above: Performed By: #### T SH, LIVER, LIPID, BMP, T7 #### [facility] [address] [place] [address] Dr. Roberto Cabral Bilirubin [Mass/Vol] 0.2 mg/dL Normal 0.2-1.[address] [facility] Comment on above: Performed By: #### T SH, LIVER, LIPID, BMP, T7 #### [facility] [address] [place] [address] Dr. Roberto Cabral Calcium [Mass/Vol] 8.7 mg/dL Normal 8.5-10.1 [facility] Comment on above: Performed By: #### T SH, LIVER, LIPID, BMP, T7 #### [facility] [address] [place] [address] Dr. Roberto Cabral Chloride [Moles/Vol] 110 mmol/L Critically high 98-[address] [facility] Comment on above: Performed By: #### T SH, LIVER, LIPID, BMP, T7 #### [facility] [address] [place] [address] Dr. Roberto Cabral CO2 [Moles/Vol] 16.0 mmol/L Critically low 21.0-32.[address] [facility] Comment on above: Performed By: #### T SH, LIVER, LIPID, BMP, T7 #### [facility] [address] [place] [address] Dr. Roberto Cabral Creatinine [Mass/Vol] 1.85 mg/dL Critically high 0.70-1.[address] [facility] Comment on above: Performed By: #### T SH, LIVER, LIPID, BMP, T7 #### [facility] [address] [place] [address] Dr. Roberto Cabral EGFR-AF PERUVIAN 43 mL/min/1.73m2 Critically low >=[address] [facility] Comment on above: Performed By: #### T SH, LIVER, LIPID, BMP, T7 #### [facility] [address] [place] [address] Dr. Roberto Cabral EGFR-NON AF PERUVIAN 36 mL/min/1.73m2 Critically low >=[address] [facility] Comment on above: Performed By: #### T SH, LIVER, LIPID, BMP, T7 #### [facility] [address] [address] [address] Roberto Cabral Globulin (S) [Mass/Vol] 3.4 g/dL Normal [facility] Comment on above: Performed By: #### T SH, LIVER, LIPID, BMP, T7 #### [facility] [address] [address] [address] Roberto Cabral Glucose [Mass/Vol] 113 mg/dL Critically high 74-106 [facility] Comment on above: Performed By: #### T SH, LIVER, LIPID, BMP, T7 #### [facility] [address] [place] [address] Dr. Roberto Cabral Potassium [Moles/Vol] 4.7 mmol/L Normal 3.5-5.[address] [facility] Comment on above: Performed By: #### T SH, LIVER, LIPID, BMP, T7 #### [facility] [address] [place] [address] Dr. Roberto Cabral Protein [Mass/Vol] 6.5 g/dL Normal 6.4-8.2 [facility] Comment on above: Performed By: #### T SH, LIVER, LIPID, BMP, T7 #### [facility] [address] [place] [address] Dr. Roberto Cabral Sodium [Moles/Vol] 139 mmol/L Normal 136-145 [facility] Comment on above: Performed By: #### T SH, LIVER, LIPID, BMP, T7 #### [facility] [address] [place] [address] Dr. Roberto Cabral Urea nitrogen [Mass/Vol] 66.0 mg/dL Critically high 7.0-18.[address] [facility] Comment on above: Performed By: #### T SH, LIVER, LIPID, BMP, T7 #### [facility] [address] [place] [address] Dr. Roberto Cabral Urea nitrogen/Creatinine [Mass ratio] 35.7 mg/mg Normal [facility] Comment on above: Performed By: #### T SH, LIVER, LIPID, BMP, T7 #### [facility] [address] [place] [address] Dr. Roberto Cabral CBC AUTO DIFFon 12-09-2021 BASO # 0.0 103/ul Normal 0.0-0.[address] [facility] Comment on above: Performed By: #### T SH, LIVER, LIPID, BMP, T7 #### [facility] [address] [place] [address] Dr. Roberto Cabral Basophils/100 WBC (Bld) 0.2 % Normal 0.2-2.0 [facility] Comment on above: Performed By: #### T SH, LIVER, LIPID, BMP, T7 #### [facility] [address] [place] [address] Dr. Roberto Cabral EO # 0.3 103/ul Normal 0.0-0.7 [facility] Comment on above: Performed By: #### T SH, LIVER, LIPID, BMP, T7 #### [facility] [address] [place] [address] Dr. Roberto Cabral Eosinophils/100 WBC (Bld) 1.7 % Normal 0.9-7.0 [facility] Comment on above: Performed By: #### T SH, LIVER, LIPID, BMP, T7 #### [facility] [address] [place] [address] Dr. Roberto Cabral Erythrocyte distribution width (RBC) [Ratio] 15.4 % Critically high 11.0-15.0 [facility] Comment on above: Performed By: #### T SH, LIVER, LIPID, BMP, T7 #### [facility] [address] [place] [address] Dr. Roberto Cabral Hematocrit (Bld) [Volume fraction] 40.2 % Critically low 42.0-54.0 [facility] Comment on above: Performed By: #### T SH, LIVER, LIPID, BMP, T7 #### [facility] [address] [place] [address] Dr. Roberto Cabral Hemoglobin (Bld) [Mass/Vol] 12.6 g/dL Critically low 14.0-18.0 [facility] Comment on above: Performed By: #### T SH, LIVER, LIPID, BMP, T7 #### [facility] [address] [address] [address] Roberto Cabral IG # 0.09 10e3/ul Critically high 0.00-0.03 [facility] Comment on above: Performed By: #### T SH, LIVER, LIPID, BMP, T7 #### [facility] [address] [place] [address] Dr. Roberto Cabral IG % 0.5 % Normal 0.0-0.[address] [facility] Comment on above: Performed By: #### T SH, LIVER, LIPID, BMP, T7 #### [facility] [address] [place] [address] Dr. Roberto Cabral LYMPH # 1.5 103/ul Normal 1.2-3.[address] [facility] Comment on above: Performed By: #### T SH, LIVER, LIPID, BMP, T7 #### [facility] [address] [place] [address] Dr. Roberto Cabral Lymphocytes/100 WBC (Bld) 8.0 % Critically low 20.5-60.[address] [facility] Comment on above: Performed By: #### T SH, LIVER, LIPID, BMP, T7 #### [facility] [address] [place] [address] Dr. Roberto Cabral MANUAL DIFF REQ NO Normal [facility] Comment on above: Performed By: #### T SH, LIVER, LIPID, BMP, T7 #### [facility] [address] [place] [address] Dr. Roberto Cabral MCH (RBC) [Entitic mass] 28.0 pg Normal 25.9-34.[address] [facility] Comment on above: Performed By: #### T SH, LIVER, LIPID, BMP, T7 #### [facility] [address] [place] [address] Dr. Roberto Cabral MCHC (RBC) [Mass/Vol] 31.3 g/dL Normal 29.9-35.[address] [facility] Comment on above: Performed By: #### T SH, LIVER, LIPID, BMP, T7 #### [facility] [address] [place] [address] Dr. Roberto Cabral MCV (RBC) [Entitic vol] 89.3 fL Normal 80.0-94.0 [facility] Comment on above: Performed By: #### T SH, LIVER, LIPID, BMP, T7 #### [facility] [address] [place] [address] Dr. Roberto Cabral MONO # 1.5 103/ul Critically high 0.3-0.8 [facility] Comment on above: Performed By: #### T SH, LIVER, LIPID, BMP, T7 #### [facility] [address] [place] [address] Dr. Roberto Cabral Monocytes/100 WBC (Bld) 8.2 % Normal 1.7-12.0 [facility] Comment on above: Performed By: #### T SH, LIVER, LIPID, BMP, T7 #### [facility] [address] [place] [address] Dr. Roberto Cabral NEUT # 14.9 103/ul Critically high 1.4-6.5 [facility] Comment on above: Performed By: #### T SH, LIVER, LIPID, BMP, T7 #### [facility] [address] [place] [address] Dr. Roberto Cabral Neutrophils/100 WBC (Bld) 81.4 % Critically high 43.0-75.0 [facility] Comment on above: Performed By: #### T SH, LIVER, LIPID, BMP, T7 #### [facility] [address] [place] [address] Dr. Roberto Cabral Platelet mean volume (Bld) [Entitic vol] 10.0 fL Normal 9.5-13.5 [facility] Comment on above: Performed By: #### T SH, LIVER, LIPID, BMP, T7 #### [facility] [address] [place] [address] Dr. Roberto Cabral PLT 358 103/ul Normal 150-450 [facility] Comment on above: Performed By: #### T SH, LIVER, LIPID, BMP, T7 #### [facility] [address] [place] [address] Dr. Roberto Cabral RBC 4.50 106/ul Critically low 4.70-6.10 [facility] Comment on above: Performed By: #### T SH, LIVER, LIPID, BMP, T7 #### [facility] [address] [place], [place] [address] Dr. Roberto Cabral WBC 18.3 103/ul Critically high 4.0-11.0 [facility] Comment on above: Performed By: #### T SH, LIVER, LIPID, BMP, T7 #### [facility] [address] [place], [place] [address] ABD/PELVIS WO CONon [...] DEVIN ORTIZ Date: 2021-12-09 20:39 Normal [facility] SARS-CoV-2 (COVID-19) RNA JOSÉ+probe Ql (Unsp spec) Not detected Normal NOT DETECTED [facility] Comment on above: Result Comment: When [...] for this test is supported by the Beauty of Health and Human Service's declaration that [...] T SH, LIVER, LIPID, BMP, T7 #### [facility] [address] [place], [place] [address] Dr. Roberto Cabral LACTATE/LACTIC ACIDon 2021 Lactate [Moles/Vol] 1.1 mmol/L Normal 0.4-1.9 [facility] Comment on above: Performed By: #### T SH, LIVER, LIPID, BMP, T7 #### [facility] [address] [place], [place] [address] Dr. Roberto Cabral LIPASEon 12-09-2021 Lipase [Catalytic activity/Vol] 186.0 U/L Normal 73.0-393.[address] [facility] Comment on above: Performed By: #### T SH, LIVER, LIPID, BMP, T7 #### [facility] [address] [address] [address] Roberto Cabral PROF 14(COMP METB)on 022 Albumin [Mass/Vol] 3.6 g/dL Normal 3.4-5.0 [facility] Comment on above: Performed By: #### T SH, LIVER, LIPID, BMP, T7 #### [facility] [address] [place] [address] Dr. Roberto Cabral Albumin/Globulin [Mass ratio] 1.0 {ratio} Normal [facility] Comment on above: Performed By: #### T SH, LIVER, LIPID, BMP, T7 #### [facility] [address] [place] [address] Dr. Roberto Cabral ALP [Catalytic activity/Vol] 79 U/L Normal 46-[address] [facility] Comment on above: Performed By: #### T SH, LIVER, LIPID, BMP, T7 #### [facility] [address] [address] [address] Roberto Cabral ALT [Catalytic activity/Vol] 19 U/L Normal 16-[address] [facility] Comment on above: Performed By: #### T SH, LIVER, LIPID, BMP, T7 #### [facility] [address] [address] [address] Roberto Cabral Anion gap [Moles/Vol] 20.6 mmol/L Normal [facility] Comment on above: Performed By: #### T SH, LIVER, LIPID, BMP, T7 #### [facility] [address] [address] [address] Roberto Cabral AST [Catalytic activity/Vol] 19 U/L Normal 15-[address] [facility] Comment on above: Performed By: #### T SH, LIVER, LIPID, BMP, T7 #### [facility] [address] [place] [address] Dr. Roberto Cabral Bilirubin [Mass/Vol] 0.3 mg/dL Normal 0.2-1.[address] [facility] Comment on above: Performed By: #### T SH, LIVER, LIPID, BMP, T7 #### [facility] [address] [address] [address] Roberto Cabral Calcium [Mass/Vol] 9.4 mg/dL Normal 8.5-10.1 [facility] Comment on above: Performed By: #### T SH, LIVER, LIPID, BMP, T7 #### [facility] [address] [address] [address] Roberto Cabral Chloride [Moles/Vol] 107 mmol/L Normal 98-[address] [facility] Comment on above: Performed By: #### T SH, LIVER, LIPID, BMP, T7 #### [facility] [address] [place] [address] Dr. Roberto Cabral CO2 [Moles/Vol] 14.9 mmol/L Critically low 21.0-32.[address] [facility] Comment on above: Performed By: #### T SH, LIVER, LIPID, BMP, T7 #### [facility] [address] [address] [address] Roberto Cabral Creatinine [Mass/Vol] 2.11 mg/dL Critically high 0.70-1.[address] [facility] Comment on above: Performed By: #### T SH, LIVER, LIPID, BMP, T7 #### [facility] [address] [place] [address] Dr. Roberto Cabral EGFR-AF PERUVIAN 37 mL/min/1.73m2 Critically low >=60 [facility] [place] [facility] Comment on above: Performed By: #### T SH, LIVER, LIPID, BMP, T7 #### [facility] [address] [address] [address] Roberto Cabral EGFR-NON AF PERUVIAN 31 mL/min/1.73m2 Critically low >=60 [facility] Comment on above: Performed By: #### T SH, LIVER, LIPID, BMP, T7 #### [facility] [address] [place] [address] Dr. Roberto Cabral Globulin (S) [Mass/Vol] 3.5 g/dL Normal [facility] [place] [facility] Comment on above: Performed By: #### T SH, LIVER, LIPID, BMP, T7 #### [facility] [address] [address] [address] Roberto Cabral Glucose [Mass/Vol] 170 mg/dL Critically high 74-106 [facility] Comment on above: Performed By: #### T SH, LIVER, LIPID, BMP, T7 #### [facility] [address] [address] [address] Roberto Cabral Potassium [Moles/Vol] 5.5 mmol/L Critically high 3.5-5.[address] [facility] Comment on above: Performed By: #### T SH, LIVER, LIPID, BMP, T7 #### [facility] [address] [place] [address] Dr. Roberto Cabral Protein [Mass/Vol] 7.1 g/dL Normal 6.4-8.2 [facility] Comment on above: Performed By: #### T SH, LIVER, LIPID, BMP, T7 #### [facility] [address] [place] [address] Dr. Roberto Cabral Sodium [Moles/Vol] 137 mmol/L Normal 136-145 [facility] Comment on above: Performed By: #### T SH, LIVER, LIPID, BMP, T7 #### [facility] [address] [place] [address] Dr. Roberto Cabral Urea nitrogen [Mass/Vol] 70.0 mg/dL Critically high 7.0-18.[address] [facility] Comment on above: Performed By: #### T SH, LIVER, LIPID, BMP, T7 #### [facility] [address] [place] [address] Dr. Roberto Cabral Urea nitrogen/Creatinine [Mass ratio] 33.2 mg/mg Normal [facility] Comment on above: Performed By: #### T SH, LIVER, LIPID, BMP, T7 #### [facility] [address] [place] [address] Dr. Roberto Cabral PROTIMEon 12-09-2021 INR Coag (PPP) [Relative time] 1.04 {INR} Normal [facility] Comment on above: Performed By: #### T SH, LIVER, LIPID, BMP, T7 #### [facility] [address] [place] [address] Dr. Roberto Cabral INR GUIDELINES SEE BELOW Normal [facility] Comment on above: Result Comment: NIKI RED INR: 2.0 - 3.0 CONDITIONS NOT LISTED BELOW 2.5 - 3.5 FOR PROSTHETIC HEART VALVE REPLACEMENT 2.5 - 3.5 RECURRENT THROMBOSIS Performed By: #### T SH, LIVER, LIPID, BMP, T7 #### [facility] [address] [place] [address] Dr. Roberto Cabral PT Coag (PPP) [Time] 11.2 s Normal 9.0-11.[address] [facility] Comment on above: Performed By: #### T SH, LIVER, LIPID, BMP, T7 #### [facility] [address] [place] [address] Dr. Roberto Cabral PTTon 12-09-2021 aPTT Coag (Bld) [Time] 33.4 s Normal 22.3-36.[address] [facility] Comment on above: Performed By: #### T SH, LIVER, LIPID, BMP, T7 #### [facility] [address] [place] [address] Dr. Roberto Cabral TROPONIN, HIGH SENSITIVITYon 12-09-2021 HSTROP 11.4 pg/mL Normal 4.0-76.[address] [facility] Comment on above: Result Comment: CUT- OFF POINTS HAVE BEEN ESTABLISHED BASED ON THE FOURTH UNIVERSAL DEFINITIONS OF MYOCARDIAL INFARCTION. THE UPPER REFERENCE LIMIT (URL) OF TROPONIN, DEFINED THE 99TH PERCENTILE OF cTnI DISTRIBUTION IN A REFERENCE POPULATION, HAS BEEN CONFIRMED THE DECISION THRESHOLD FOR TX DIAGNOSIS. Performed By: #### T SH, LIVER, LIPID, BMP, T7 #### [facility] [address] [place] [address] Dr. Roberto Cabral POINT OF CARE GLUCOSEon 05- Glucose [Mass/Vol] 115 mg/dL Critically high 74-106 [facility] Comment on above: Performed By: #### T SH, LIVER, LIPID, BMP, T7 #### [facility] [address] [place], [place] [id number] Dr. Roberto Cabral Vital Signs Date Time Vital Sign Value Performing Clinician Rodney fowler 10-27-2021 14:12-0400 Blood Pressure Location [facility] 10-27-2021 14:12-0400 Diastolic blood pressure 64 mm[Hg] [facility] 10-27-2021 14:12-0400 Heart rate 72 /min [facility] 10-27-2021 14:12-0400 Respiratory rate 16 /min [facility] 10-27-2021 14:12-0400 Systolic blood pressure 120 mm[Hg] [...] Start: 01-18-2017 End: 01-19-2017 Ambulatory DEFAULT PHYSICIAN Facility:[facility] Procedures Date Procedure Procedure Detail Performing Clinician Start: 10-14-[address] ANANT ZHANG . Comment on above: Performed By: #### T SH, LIVER, LIPID, BMP, T7 #### [facility] [address] [place] [id number] Roberto Cabral Start: 12-20-2016 Colonoscopy [facility] Cholecystectomy [facility] Immunizations Immunization Date Immunization Notes Care Provider Fa [facility] 06-25-2021 SARS-CoV-2 (COVID-19 ) Ad26 vaccine, recombinant [facility] 09-22-2020 SARS-CoV-2 (COVID-19 ) Ad26 vaccine, recombinant [facility] 08-31-2020 SARS-CoV-2 (COVID-19 ) Ad26 vaccine, recombinant [facility] Payers Date Payer Category Payer Unknown [id number] 1945 Unknown [id number] 2.16.84 [id number] 1945 Unknown [id number] 2.16.84 [id number] 1945 Unknown [id number] 2.16.84 [id number] 1945 Unknown [id number] 2.16.84 [id number] 1945 Unknown [id number] 2.16.84 [id number] 1945 Unknown [id number] 2.16.84 [id number] Unknown Social History Date Type Detail Facility Start: 10-27-2021 Tobacco smoking status Ex-smoker ([facility] Tobacco smoking status Never [id number] Sex Assigned At [facility] Clinical Note 11-17-2021 Note Date & Type [...] health for screening. CC: Adonay Zhang M.D. [facility] Signed and Approved by: DR GWEN LORENZO . 11/24/2021 10:45:00 [facility] Evaluation + Plan note Note Date & Type Note Facility Evaluation + Plan note No data available for this section [facility] Discharge instructions Note Date & Type Note Facility Hospital Discharge instructions No data available for this section [facility] Summary Purpose Family History No Family History Records FoundNo Family History Records FoundNo Family History Records Found Advance Directives No Advanced Directives Records FoundNo Advanced Directives Records FoundNo Advanced Directives Records Found Additional Source Comments (unrecognized sect ion and content) No Status Records FoundNo Status Records FoundNo Status Records Found INFORMATION SOURCE (unrecogn ized section and content) DATE CREATED AUTHOR 12/27/2017 [facility] DATE CREATED AUTHOR AUTHOR'S ORGANIZ ATION 10/20/2022 [facility] DATE CREATED AUTHOR AUTHOR'S ORGANIZ ATION 08/11/2023 [facility] FOR RECORDS PERTAINING TO PATIENTS WHO ARE [...] BE BASED ON THE PRIMARY CLINICAL RECORDS. [facility] [facility]. provides no warranty or guarantee of the accuracy or completeness of information in this document.
[2023-08-12 13:17] LABS: Occult Blood Positive
== END 2023-08-12 10:37 | disposition home or self-care (01) ==
LOC: LAB 12:58
PROVIDERS: PCP Family Medicine; Visit Provider Family Medicine
DX: D64.9 Anemia, unspecified (principal)
CPT/HCPCS: G0328

== ENCOUNTER 2023-10-03 11:13 | Outpatient (OUT) | payer MEDICARE, SELFPAY | END 2023-10-03 11:14 | disposition home or self-care (01) | LOC: PST 11:13 | PROVIDERS: PCP Family Medicine; Visit Provider Surgery | DX: Z01.818 Encounter for other preprocedural examination (principal); D50.9 Iron deficiency anemia, unspecified; R14.0 Abdominal distension (gaseous); K25.9 Gastric ulcer, unspecified as acute or chronic, without hemorrhage or perforation ==

== ENCOUNTER 2023-10-11 06:04 | Day surgery (SDC) | payer MEDICARE, SELFPAY ==
--- NOTE | 2023-10-11 | OP_ITS ---
OPERATION DATE: 10/11/2023 PREOPERATIVE DIAGNOSIS: Iron deficiency anemia, history of gastric ulcerations. POSTOPERATIVE DIAGNOSIS: Small hiatal hernia. PROCEDURE: EGD. ANESTHESIA: Monitored anesthesia care. ESTIMATED BLOOD LOSS: Zero. INDICATIONS AND CONSENT: Patient is a 78-year-old male with history of iron deficiency anemia. Last EGD and colonoscopy were in 2021 for anemia. He was found to have some gastric ulcerations, normal colonoscopy. Indications, risks, benefits, alternatives of proceeding with repeat EGD were explained extensively to the patient, including the risks of bleeding, aspiration, esophageal/gastric/duodenal perforation or anesthetic complications. All of his questions were answered. Informed consent was obtained. PROCEDURE: Patient brought to the operating room, placed in the left lateral decubitus position. Monitored anesthesia care was provided. Bite block was placed in the patient?s mouth. Scope was inserted into the oropharynx. Under direct visualization, it was advanced into the esophagus, past the cricopharyngeus, down to the stomach. The stomach was insufflated with air. The pylorus was traversed down to the descending portion of the duodenum. There was no evidence of duodenitis or ulceration. There was no scarring within the pyloric channel. Scope was pulled back into the stomach and retroflexed. There was a small, sliding type hiatal hernia. No gastric mucosal abnormalities. The GE junction was noted at approximately 41 cm. There was no distal esophagitis or Galloway?s changes. The remainder of the esophagus was unremarkable. The scope was then withdrawn. Patient tolerated procedure well, was sent to recovery room in good condition. CC: Aaron Zhang M.D. [facility]
--- OUTSIDE RECORDS SUMMARY | 2023-10-11 06:07 | XMS_ITS | CCD ---
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 Name Role Phone PHYSICIAN, DEFAULT Unavailable Unavailable PHYSICIAN, DEFAULT Unavailable Unavailable Adonay Zhang Primary Care Physician [phone] HOY ., DR URIAS Admitting Unavailable HOY [...] HOY ., DR URIAS Consulting Unavailable GRECHNY .JOSE Consulting UnavailDEVIN Shook Consulting Unavailable NILL ., DR HIDALGO Admitting Unavailable HOY ., DR URIAS Primary Care Unavailable NILL ., DR HIDALGO Attending Unavailable NILL ., DR HIDALGO Consulting Unavailable AGUBÁNGEL SHEA Consulting Unavailable DANIEL FRANCIS Consulting Unavailable HOY ., DR URIAS Admitting Unavailable HOY ., DR URIAS Attending Unavailable HOY ., DR URIAS Consulting Unavailable HOY ., DR URIAS Primary Care Unavailable Cynthiay Adonay CRAWLEY Primary Care Provider ADONAY ZHANG Primary Care Unavailable CYNTHIAYJONATHANADONAY M Primary Care Unavailable HOY, ADONAY M Referring Unavailable ABHYANKAR, [place]UST[place] Attending Unavailable ADONAY ZHANG M Primary Care Unavailable ABHYANKAR, [place] Referring Unavailable HOY, ADONAY M Primary Care Unavailable ABHYCIROAR, [place] Referring Unavailable HOY, ADONAY M Primary Care Unavailable NILLGwen R Attending Unavailable Adonay Zhang Referring Unavailable Allergies Allergy Classification Reported Allergen(s) Allergy Type Date of Onset Reaction(s) Facility (2 sources) Sulfonamides (Antibiotic); Translations: [sulfa drugs] Drug allergy Unknown (qualifier value) [facility] [place] Work Phone: Medications Current Medications Medication Drug Class(es) Dates Sig (Normalized) Sig (Original) aspirin 81 mg delayed release oral tablet (7 sources) Platelet Aggregation Inhibitor, Nonsteroidal Anti-inflammatory Drug Start: 08-29-2023 take 1 tablet by mouth once daily aspirin 81 mg Oral EC Tab 81 mg = 1 tab(s), Oral, Daily, Refills(s) 0 Start Date: 08/29/23 Status: Ordered Start: 10-21-2021 take 1 tablet by meme th once daily aspirin 81 mg Oral EC Tab 81 mg = 1 tab(s), Oral, Daily, Refills(s) 0 Start Date: 10/21/21 Status: Ordered ADULT LOW DOSE A SPIRIN ORAL Take by mouth. 0 Active Comment on above: Take by mouth. benazepril hydrochloride 40 mg oral tablet (1 source) Angiotensin Converting Enzyme Inhibitor Start: 2 take 1 tablet by mouth once daily benazepril 40 mg oral tablet 40 mg = 1 tab(s), Oral, Daily, Refills(s) 0 Start Date: 10/21/21 Status: Ordered Diclofenac 75mg Tab-DR (1 source) Start: 2 take 1 tablet by mouth twice daily Diclofenac 75mg Tab-DR = 1 tab(s), Oral, BID, Refills(s) 0 Start Date: 10/21/21 Status: Ordered doxazosin 4 mg oral tablet (8 sources) alpha-Adrenergic Citlalli Start: 2 take 1 tablet by mouth once daily Cardura 4 mg Tab 4 mg = 1 tab(s), Oral, Daily, Refills(s) 0 Start Date: 10/21/21 Status: Ordered Comment on above: Take 4 mg by mouth d aily at bedtime. furosemide 40 mg oral tablet (8 sources) Loop Diuretic Start: 2 take 1 tablet by mouth once daily Lasix 40 mg Tab 40 mg = 1 tab(s), Oral, Daily, Refills(s) 0 Start Date: 10/21/21 Status: Ordered take 1 tablet by mouth twice linda ly furosemide (LASIX) 40 mg tablet Take 40 mg by mouth two times a day. 0 Active Comment on above: Take 40 mg by mouth two times a day. glimepiride 4 mg oral tablet (8 sources) Sulfonylurea Start: 2 take 1 tablet by mouth once daily glimepiride 4 mg Tab 4 mg = 1 tab(s), Oral, Daily, Refills(s) 0 Start Date: 10/21/21 Status: Ordered Comment on above: Take 4 mg by mouth d aily with breakfast. hyoscyamine sulfate 0.125 mg oral tablet (1 source) Start: 2 take 1 tablet by mouth four times daily Levsin 0.125 mg oral tablet 0.125 mg = 1 tab(s), Oral, QID, Refills(s) 0 Start Date: 10/21/21 Status: Ordered linaclotide 0.145 mg oral capsule (7 sources) Guanylate Cyclase-C Agonist Start: 2 take 1 capsule by mouth once daily Linzess 145 mcg oral capsule 145 mcg = 1 cap(s), Oral, Daily, Refills(s) 0 Start Date: 10/21/21 Status: Ordered take 1 capsule by mo dch once daily in the morning linaclotide (LINZESS) 145 mcg capsule Ta ke by mouth daily at 6 am. 0 Active Comment on above: Take by mouth daily at 6 am. metFORMIN hydrochloride 500 mg oral tablet (8 sources) Biguanide Start: 10-21-2021 take 1 tablet by mouth twice daily metformin 500 mg oral tablet 500 mg = 1 tab(s), Oral, BID, Refills(s) 0 Start Date: 10/21/21 Status: Ordered take 1 tablet by meme once daily at breakfast metFORMIN (GLUCOPHAGE) 500 mg tablet Perico e 500 mg by mouth daily with breakfast. 0 Active Comment on above: Take 500 mg by mouth daily with breakfast. metoprolol tartrate 50 mg oral tablet (8 sources) beta-Adrenergic Citlalli Start: 08-21-2023 take 1 tablet by mouth once daily Metoprolol tartrate 50 mg Tab 50 mg = 1 tab(s), Oral, Daily, Refills(s) 0 Start Date: 08/21/23 Status: Ordered Start: 10-21-2021 take 1 tablet by meme th twice daily metoprolol tartrate 100 mg Tab 100 mg = 1 tab(s), Oral, BID, Refills(s) 0 Start Date: 10/21/21 Status: Ordered take 1 tablet by meme th once daily metoprolol succinate ER (TOPROL XL) 50 mg 24 hr tablet Take 50 mg by mouth once daily. 0 Active Comment on above: Take 50 mg by mouth once daily. pantoprazole 40 mg delayed release oral tablet (8 sources) Proton Pump Inhibitor Start: 2 take 2 tablets by mouth once daily Pantoprazole [address] Tab 80 mg = 2 tab(s), Oral, Daily, Refills(s) 0 Start Date: 10/21/21 Status: Ordered Start: 10-21-2021 take 1 tablet by meme th once daily Pantoprazole [address] Tab 40 mg = 1 tab(s), Oral, Daily, Refills(s) 0 Start Date: 10/21/21 Status: Ordered take 1 tablet by meme once daily pantoprazole DR (PROTONIX) 40 mg tablet Take 40 mg by mouth once daily. 0 Active Comment on above: Take 40 mg by mouth once daily. Potassium Chloride (7 sources) Start: 08-29-2023 potassium chloride Refills(s) 0 Start Date: 08/29/23 Status: Ordered Start: 10-21-2021 take 1 tablet by meme th twice daily potassium chloride 20 mEq ER Tab 20 mEq = 1 tab(s), Oral, BID, Refills(s) 0 Start Date: 10/21/21 Status: Ordered POTASSIUM CHLORI DE ORAL Take by mouth. 0 Active Comment on above: Take by mouth. simvastatin 20 mg oral tablet (7 sources) HMG-CoA Reductase Inhibitor Start: 2 take 1 tablet by mouth once daily at bedtime simvastatin 20 mg Tab 20 mg = 1 tab(s), Oral, Once a day (at bedtime), Refills(s) 0 Start Date: 10/21/21 Status: Ordered Comment on above: Take 20 mg by mouth daily at bedtime. sucralfate 1000 mg oral tablet (1 source) Aluminum Complex Start: 2 sucralfate 1 g Tab 1 gm = 1 tab(s), Oral, QIDACHS, Refills(s) 0 Start Date: 10/21/21 Status: Ordered Vitamin B Complex oral tablet (1 source) Start: 4 take 1 tablet by mouth once daily Vitamin B Complex oral tablet 1 tab(s), Oral, Daily, Refill(s) 0 Start Date: 08/29/23 Status: Ordered Completed/Discontinued Medications Medication Drug Class(es) Dates Sig (Normalized) Sig (Original) ALPRAZolam 0.25 mg oral tablet (6 sources) Benzodiazepine take 1 tablet by mouth every twenty-four hours as needed ALPRAZolam (XANAX) 0.25 mg tablet Take 0.25 mg by mouth at bedtime as needed. 0 Active Comment on above: Take 0.25 mg by mout h at bedtime as needed. clobetasol propionate 0.0005 mg/mg topical gel (6 sources) Corticosteroid Clobetasol Propionate 0.05 % gel Apply to affected area. 0 Active Comment on above: Apply to affected ar ea. empagliflozin 10 mg oral tablet (6 sources) Sodium-Glucose Cotransporter 2 Inhibitor take 1 tablet by mouth once daily at breakfast empagliflozin (JARDIANCE) 10 mg tablet Take by mouth daily with breakfast. 0 Active Comment on above: Take by mouth daily with breakfast. Vitamin B Complex (5 sources) vitamin B comple x (SUPER B COMPLEX ORAL) Take by mouth. 0 Active Comment on above: Take by mouth. Problems Active Problems Problem Classification Problem Date Documented Da te Episodic/Chronic Abdominal pain (8 sources) Epigastric pain; Translations: [Epigastric pain] Onset: 2 Episodic Alcohol-related disorders (2 sources) History of alcohol abuse 10-21-2021 Chronic Allergic reactions (2 sources) Eczema 10-21-2021 Episodic Anxiety disorders (3 sources) Anxiety; Translations: [Anxiety disorder, unspecified] Onset: 2 10-21-2021 Chronic Asthma (3 sources) Asthma; Translations: [Unspecified asthma, uncomplicated] Onset: 2 10-21-2021 Chronic Blindness and vision defects (2 sources) Hypermetropia 10-21-2021 Episodic Calculus of urinary tract (3 sources) History of calculus of kidney; Translations: [Personal history of urinary calculi] Onset: 2 04-21-2022 Episodic Deficiency and other anemia (8 sources) Iron deficiency anemia due to blood loss; Translations: [Iron deficiency anemia secondary to blood loss (chronic)] Onset: 4 09-04-2023 Chronic Deficiency and other anemia (3 sources) Anemia; Translations: [Anemia, unspecified] Onset: 2 Episodic Deficiency and other anemia (2 sources) Iron deficiency anemia; Translations: [Iron deficiency anemia, unspecified] Onset: 4 Episodic Diabetes mellitus without complication (3 sources) Diabetes mellitus; Translations: [Type 2 diabetes mellitus without complications] Onset: 2 10-21-2021 Chronic Disorders of lipid metabolism (7 sources) Hypercholesterolemia; Translations: [Hyperlipidemia] Onset: 2 10-21-2021 Chronic Esophageal disorders (5 sources) Gastroesophageal reflux disease without esophagitis; Translations: [Gastro-esophageal reflux disease without esophagitis] Onset: 2 Chronic Essential hypertension (3 sources) Hypertensive disorder; Translations: [Essential (primary) hypertension] Onset: 3 10-21-2021 Chronic Gastritis and duodenitis (2 sources) Gastritis, unspecified, without bleeding; Translations: [Gastritis] Onset: 2 11-30-2021 Episodic Gastroduodenal ulcer (except hemorrhage) (3 sources) Gastric ulcer, unspecified as acute or chronic, without hemorrhage or perforation; Translations: [Gastric ulcer] Onset: 2 Chronic Hyperplasia of prostate (3 sources) Benign prostatic hyperplasia; Translations: [Benign prostatic hyperplasia without lower urinary tract symptoms] Onset: 2 10-21-2021 Chronic Inflammatory conditions of male genital organs (3 sources) Chronic prostatitis; Translations: [Chronic prostatitis] Onset: 2 10-21-2021 Chronic Malaise and fatigue (1 source) Other fatigue; Translations: [OTHER FATIGUE] Onset: 3 Episodic Nutritional deficiencies (1 source) Vitamin D deficiency 08-21-2023 Chronic Osteoarthritis (1 source) Unspecified osteoarthritis, unspecified site; Translations: [UNSPECIFIED OSTEOARTHRITIS UNS SITE] Onset: 2 Chronic Other aftercare (1 source) Other buttermaker continuous churn (current) drug therapy; Translations: [OTH COOKEE CURRENT DRUG THERAPY] Onset: 3 Episodic Other connective tissue disease (2 sources) Fibromyalgia 10-21-2021 Episodic Other gastrointestinal disorders (1 source) Swollen abdomen; Translations: [Abdominal distension (gaseous)] Onset: 4 Episodic Other gastrointestinal disorders (1 source) Abdominal bloating 11-30-2021 Episodic Other gastrointestinal disorders (1 source) Occult blood in stools; Translations: [Other fecal abnormalities] 09-04-2023 Episodic Other male genital disorders (2 sources) Impotence 10-21-2021 Chronic Other male genital disorders (1 source) Male erectile dysfunction, unspecified; Translations: [MALE ERECTILE DYSFUNCTION UNS] Onset: 2 Chronic Other nutritional; endocrine; and metabolic disorders (2 sources) Body mass index 30+ - obesity 10-27-2021 Chronic Other nutritional; endocrine; and metabolic disorders (1 source) Morbid (severe) obesity due to excess calories; Translations: [MORBID SEVERE OBES D/T EXCESS RICKIE] Onset: 2 Chronic Other nutritional; endocrine; and metabolic disorders (1 source) Body mass index (BMI) 32.0-32.9, adult; Translations: [BODY MASS INDEX BMI 32.0-32.9 ADULT] Onset: 2 Chronic Other nutritional; endocrine; and metabolic disorders (7 sources) Morbid obesity; Translations: [Morbid (severe) obesity due to excess calories] Onset: 4 08-29-2023 Chronic Other nutritional; endocrine; and metabolic disorders (1 source) Loss of appetite 11-30-2021 Episodic Other screening for suspected conditions (not mental disorders or infectious disease) (1 source) Encounter for screening for malignant neoplasm of prostate; Translations: [ENC SCREEN MALIG NEOPLASM PROSTATE] Onset: 3 Episodic Other upper respiratory disease (2 sources) Allergic rhinitis 10-21-2021 Chronic Other upper respiratory infections (4 sources) Acute sinusitis, unspecified; Translations: [ACUTE SINUSITIS UNSPECIFIED] Onset: 3 Episodic Peripheral and visceral atherosclerosis (5 sources) Peripheral vascular disease, unspecified; Translations: [Peripheral vascular disease] Onset: 3 Chronic Residual codes; unclassified (2 sources) Obstructive sleep apnea syndrome 10-21-2021 Chronic Residual codes; unclassified (2 sources) Sleep apnea 10-21-2021 Chronic Residual codes; unclassified (1 source) Sleep apnea, unspecified; Translations: [SLEEP APNEA UNSPECIFIED] Onset: 2 Chronic Residual codes; unclassified (1 source) Obstructive sleep apnea (adult) (pediatric); Translations: [OBSTRUCTIVE SLEEP APNEA] Onset: 2 Chronic Residual codes; unclassified (2 sources) Dependent edema 10-21-2021 Episodic Spondylosis; intervertebral disc disorders; other back problems (1 source) Cervicalgia; Translations: [CERVICALGIA] Onset: 3 Episodic Unclassified (3 sources) COUGH, UNSPECIFIED; Translations: [COUGH, UNSPECIFIED] Onset: 2 Unclassified (1 source) CONTACT W/AND (SUSP) EXPOS COVID-19; Translations: [CONTACT W/AND (SUSP) EXPOS COVID-19] Onset: 2 Viral infection (1 source) COVID-19; Translations: [COVID-19] Onset: 2 Past or Other Problems Problem Classification Problem Date Documented Da te Episodic/Chronic Acute and unspecified renal failure (1 source) Acute kidney failure, unspecified; Translations: [ACUTE KIDNEY FAILURE UNSPECIFIED] Onset: 12-15-2021 Episodic Bacterial infection; unspecified site (1 source) Personal history of Methicillin resistant Staphylococcus aureus infection; Translations: [PERS HX METHICILLIN RSIST STAPH INF] Onset: 12-15-2021 Episodic Deficiency and other anemia (1 source) Anemia, unspecified; Translations: [ANEMIA UNSPECIFIED] Onset: 11-23-2021 Episodic Fluid and electrolyte disorders (2 sources) Dehydration; Translations: [Hyperkalemia] Onset: 12-15-2021 Episodic Intestinal infection (5 sources) Viral intestinal infection, unspecified; Translations: [Other viral enteritis] Onset: 12-14-2021 Episodic Other aftercare (1 source) senior care (current) use of aspirin; Translations: [COOKEE CURRENT USE OF ASPIRIN] Onset: 12-15-2021 Episodic Other aftercare (1 source) senior care (current) use of oral hypoglycemic drugs; Translations: [COOKEE USE ORAL HYPOGLYCEMIC DX] Onset: 12-15-2021 Episodic [...] Test Name Value Interpretation Reference Range Facility Insurance Correspondenceon 0 09-28-2023 Insurance Correspondence [id number]# 1.00TIFF [facility] CNPShannan 09-15-2023 CNPN Telephone (HEMTSA) ESTEPHANIALAM ([id number]) 1945 M Date Time Provider Department 09/15/23 FINANCIAL NAVIGATOR GABINO GEORGE During your visit today, we recorded the following information about you: Yordan Dugan 09/15/2023 12:46 PM Signed Patient on 1st time treatment report-non oncology regimen (venofer) Patient holds medicare coverage and no FA available for this treatment. Allergies As of Date: 09/15/2023 (Not on File) Date Reviewed: 09/04/2023 Reviewed by: Werner Sonia - Fully Assessed Reason for Visit: Benefits Investigation [4098] Prescriptions as of 09/15/2023 - ADULT LOW DOSE ASPIRIN ORAL Take by mouth. - vitamin B complex (SUPER B COMPLEX ORAL) Take by mouth. - POTASSIUM CHLORIDE ORAL Take by mouth. - simvastatin (ZOCOR) 20 mg tablet Take 20 mg by mouth daily at bedtime. - ALPRAZolam (XANAX) 0.25 mg tablet Take 0.25 mg by mouth at bedtime as needed. - Clobetasol Propionate 0.05 % gel Apply to affected area. - doxazosin (CARDURA) 4 mg tablet Take 4 mg by mouth daily at bedtime. - furosemide (LASIX) 40 mg tablet Take 40 mg by mouth two times a day. - glimepiride (AMARYL) 4 mg tablet Take 4 mg by mouth daily with breakfast. - empagliflozin (JARDIANCE) 10 mg tablet Take by mouth daily with breakfast. - linaclotide (LINZESS) 145 mcg capsule Take by mouth daily at 6 am. - metFORMIN (GLUCOPHAGE) 500 mg tablet Take 500 mg by mouth daily with breakfast. - metoprolol succinate ER (TOPROL XL) 50 mg 24 hr tablet Take 50 mg by mouth once daily. - pantoprazole DR (PROTONIX) 40 mg tablet Take 40 mg by mouth once daily. Problem List As Of Date 09/15/2023 Noted Resolved Iron deficiency anemia due to chronic blood los*09/04/2023 Morbid obesity (HCC) [E66.01] 09/04/2023 Encounter Status:Closed by YORDAN DUGAN on 09/15/23 Normal [place] CBC W Auto Differential pane l (Bld)on 09-04-2023 Anisocytosis Ql (Bld) Present Normal [place] Comment on above: Order Comment: Speci men Type: BLOOD SPECIMEN Ordering Facility: [facility] Address: [address] [place] [address] Performed By: #### 1 4196-0 #### [facility] CLIA [id number] [address] [place] [address] #### [id number] #### [facility] CLIA [id number] [address] [place] [address] LAB CLIA [id number] [address] [place], [place] [address] [place] [address] [place] Basophils (Bld) [#/Vol] 0.00 10*3/uL Normal <0.11 [place] Comment on above: Order Comment: Speci men Type: BLOOD SPECIMEN Ordering Facility: [facility] Address: [address] [place] [address] Performed By: #### 1 4196-0 #### [facility] CLIA [id number] [address] [place] [address] #### [id number] #### [facility] CLIA [id number] [address] [place] [address] LAB CLIA [id number] [address] [place] [address] [place] Basophils/100 WBC (Bld) 0.0 % Normal [place] Comment on above: Order Comment: Speci men Type: BLOOD SPECIMEN Ordering Facility: [facility] Address: [address] [place] [address] Performed By: #### 1 4196-0 #### [facility] CLIA [id number] [address] [place] [address] #### [id number] #### [facility] CLIA [id number] [address] [place] [address] LAB CLIA [id number] [address] [place] [address] [place] Differential cell count method Nom (Bld) Manual Normal [place] Comment on above: Order Comment: Speci men Type: BLOOD SPECIMEN Ordering Facility: [facility] Address: [address] [place] [address] Performed By: #### 1 4196-0 #### [facility] CLIA [id number] [address] [place] [address] #### [id number] #### [facility] CLIA [id number] [address] [place] [address] LAB CLIA [id number] [address] [place] [address] [place] Eosinophils (Bld) [#/Vol] 0.26 10*3/uL Normal <0.46 [place] Comment on above: Order Comment: Speci men Type: BLOOD SPECIMEN Ordering Facility: [facility] Address: [address] [place] [address] Performed By: #### 1 4196-0 #### [facility] CLIA [id number] [address] [place] [address] #### [id number] #### [facility] CLIA [id number] [address] [place] [address] LAB CLIA [id number] [address] [place] [address] [place] Eosinophils/100 WBC (Bld) 2.9 % Normal [place] Comment on above: Order Comment: Speci men Type: BLOOD SPECIMEN Ordering Facility: [facility] Address: [address] [place] [address] Performed By: #### 1 4196-0 #### [facility] CLIA [id number] [address] [place] [address] #### [id number] #### [facility] CLIA [id number] [address] [place] [address] LAB CLIA [id number] [address] [place] [address] [place] Erythrocyte distribution width (RBC) [Ratio] 20.9 % High 11.5-15.0 [place] Comment on above: Order Comment: Speci men Type: BLOOD SPECIMEN Ordering Facility: [facility] Address: [address] [place] [address] Performed By: #### 1 4196-0 #### [facility] CLIA [id number] [address] [place] [address] #### [id number] #### [facility] CLIA [id number] [address] [place], [place] [id number] [facility] CLIA [id number] [address] [place] [address] [place] Hematocrit (Bld) [Volume fraction] 33.9 % Low 39.0-51.0 [place] Comment on above: Order Comment: Speci men Type: BLOOD SPECIMEN Ordering Facility: [facility] Address: [address] [place] [address] Performed By: #### 1 4196-0 #### [facility] CLIA [id number] [address] [place] [address] #### [id number] #### [facility] CLIA [id number] [address] [place] [address] LAB CLIA [id number] [address] [place] [address] [place] Hemoglobin (Bld) [Mass/Vol] 9.0 g/dL Low 13.0-17.0 [place] Comment on above: Order Comment: Speci men Type: BLOOD SPECIMEN Ordering Facility: [facility] Address: [address] [place] [address] Performed By: #### 1 4196-0 #### [facility] CLIA [id number] [address] [place] [address] #### [id number] #### [facility] CLIA [id number] [address] [place], [place] [id number] [facility] CLIA [id number] [address] [place] [address] [place] Lymphocytes (Bld) [#/Vol] 1.55 10*3/uL Normal 1.00-4.00 [place] Comment on above: Order Comment: Speci men Type: BLOOD SPECIMEN Ordering Facility: [facility] Address: [address] [place] [address] Performed By: #### 1 4196-0 #### [facility] CLIA [id number] [address] [place], [place] [address] #### [id number] #### [facility] CLIA [id number] [address] [place], [place] [address] [facility] CLIA [id number] [address] [place] [address] [place] Lymphocytes/100 WBC (Bld) 17.1 % Normal [place] Comment on above: Order Comment: Speci men Type: BLOOD SPECIMEN Ordering Facility: [facility] Address: [address] [place] [address] Performed By: #### 1 4196-0 #### [facility] CLIA [id number] [address] [place] [address] #### [phone] #### [facility] CLIA [id number] [address] [place] [address] LAB CLIA [id number] [address] [place] [address] [place] MCH (RBC) [Entitic mass] 18.5 pg Low 26.0-34.0 [place] Comment on above: Order Comment: Speci men Type: BLOOD SPECIMEN Ordering Facility: [facility] Address: [address] [place] [address] Performed By: #### 1 4196-0 #### [facility] CLIA [id number] [address] [place] [address] #### [phone] #### [facility] CLIA [id number] [address] [place], [place] [id number] [facility] CLIA [id number] [address] [place], [place] [address] [place] MCHC (RBC) [Mass/Vol] 26.5 g/dL Low 30.5-36.0 [place] Comment on above: Order Comment: Speci men Type: BLOOD SPECIMEN Ordering Facility: [facility] Address: [address] [place] [address] Performed By: #### 1 4196-0 #### [facility] CLIA [id number] [address] [place] [address] #### [phone] #### [facility] CLIA [id number] [address] [place] [address] LAB CLIA [id number] [address] [place] [address] [place] MCV (RBC) [Entitic vol] 69.8 fL Low 80.0-100.0 [place] Comment on above: Order Comment: Speci men Type: BLOOD SPECIMEN Ordering Facility: [facility] Address: [address] [place] [address] Performed By: #### 1 4196-0 #### [facility] CLIA [id number] [address] [place] [address] #### 93255-6 #### [facility] CLIA [id number] [address] [place] [address] LAB CLIA [id number] [address] [place] [address] [place] Monocytes (Bld) [#/Vol] 0.69 10*3/uL Normal <0.87 [place] Comment on above: Order Comment: Speci men Type: BLOOD SPECIMEN Ordering Facility: [facility] Address: [address] [place] [address] Performed By: #### 1 4196-0 #### [facility] CLIA [id number] [address] [place] [address] #### 88442-1 #### [facility] CLIA [id number] [address] [place] [address] LAB CLIA [id number] [address] [place] [address] [place] Monocytes/100 WBC (Bld) 7.6 % Normal [place] Comment on above: Order Comment: Speci men Type: BLOOD SPECIMEN Ordering Facility: [facility] Address: [address] [place] [address] Performed By: #### 1 4196-0 #### [facility] CLIA [id number] [address] [place] [address] #### 18171-3 #### [facility] CLIA [id number] [address] [place], [place] [address] [facility] CLIA [id number] [address] [place] [address] [place] Neutrophils (Bld) [#/Vol] 6.57 10*3/uL Normal 1.45-7.50 [place] Comment on above: Order Comment: Speci men Type: BLOOD SPECIMEN Ordering Facility: [facility] Address: [address] [place] [address] Performed By: #### 1 4196-0 #### [facility] CLIA [id number] [address] [place] [address] #### 56944-0 #### [facility] CLIA [id number] [address] [place], [place] [address] [facility] CLIA [id number] [address] [place] [address] [place] Neutrophils/100 WBC (Bld) 72.4 % Normal [place] Comment on above: Order Comment: Speci men Type: BLOOD SPECIMEN Ordering Facility: [facility] Address: [address] [place] [address] Performed By: #### 1 4196-0 #### [facility] CLIA [id number] [address] [place], [place] [address] #### 58170-1 #### [facility] CLIA [id number] [address] [place] [address] LAB CLIA [id number] [address] [place] [address] [place] Nucleated RBC (Bld) [#/Vol] 10*3/uL Normal <0.01 [place] Comment on above: Order Comment: Speci men Type: BLOOD SPECIMEN Ordering Facility: [facility] Address: [address] [place] [address] Performed By: #### 1 4196-0 #### [facility] CLIA [id number] [address] [place] [address] #### 26031-0 #### [facility] CLIA [id number] [address] [place] [address] LAB CLIA [id number] [address] [place] [address] [place] Nucleated RBC/100 WBC (Bld) [Ratio] 0.0 /100 WBC Normal [place] Comment on above: Order Comment: Speci men Type: BLOOD SPECIMEN Ordering Facility: [facility] Address: [address] [place] [address] Performed By: #### 1 4196-0 #### [facility] CLIA [id number] [address] [place] [address] #### 14101-7 #### [facility] CLIA [id number] [address] [place] [address] LAB CLIA [id number] [address] [place] [address] [place] Ovalocytes LM Ql (Bld) Few Normal [place] Comment on above: Order Comment: Speci men Type: BLOOD SPECIMEN Ordering Facility: [facility] Address: [address] [place] [address] Performed By: #### 1 4196-0 #### [facility] CLIA [id number] [address] [place] [address] #### 19133-9 #### [facility] CLIA [id number] [address] [place] [address] LAB CLIA [id number] [address] [place] [address] [place] Platelet mean volume (Bld) [Entitic vol] 9.3 fL Normal 9.0-12.7 [place] Comment on above: Order Comment: Speci men Type: BLOOD SPECIMEN Ordering Facility: [facility] Address: [address] [place] [address] Performed By: #### 1 4196-0 #### [facility] CLIA [id number] [address] [place] [address] #### 30366-9 #### [facility] CLIA [id number] [address] [place] [address] LAB CLIA [id number] [address] [place] [address] [place] Platelets (Bld) [#/Vol] 425 10*3/uL High 150-400 [place] Comment on above: Order Comment: Speci men Type: BLOOD SPECIMEN Ordering Facility: [facility] Address: [address] [place] [address] Result Comment: No c lot detected.Results checked and verified. Performed By: #### 1 4196-0 #### [facility] CLIA [id number] [address] [place] [address] #### 35722-6 #### [facility] CLIA [id number] [address] [place] [address] LAB CLIA [id number] [address] [place] [address] [place] Platelets Estimate (Bld) [#/Vol] Increased Normal [place] Comment on above: Order Comment: Speci men Type: BLOOD SPECIMEN Ordering Facility: [facility] Address: [address] [place] [address] Performed By: #### 1 4196-0 #### [facility] CLIA [id number] [address] [place] [address] #### 94409-6 #### [facility] CLIA [id number] [address] [place] [address] LAB CLIA [id number] [address] [place] [address] [place] RBC (Bld) [#/Vol] 4.86 10*6/uL Normal 4.20-6.00 [facility] Comment on above: Order Comment: Speci men Type: BLOOD SPECIMEN Ordering Facility: [facility] Address: [address] [place] [address] Performed By: #### 1 4196-0 #### [facility] CLIA [id number] [address] [place] [address] #### 55021-4 #### [facility] CLIA [id number] [address] [place] [address] LAB CLIA [id number] [address] [place] [address] [place] RBC FRAGMENTS Few Abnormal None Seen [place] Comment on above: Order Comment: Speci men Type: BLOOD SPECIMEN Ordering Facility: [facility] Address: [address] [place] [address] Performed By: #### 1 4196-0 #### [facility] CLIA [id number] [address] [place] [address] #### 82641-3 #### [facility] CLIA [id number] [address] [place] [address] LAB CLIA [id number] [address] [place] [address] [place] RED CELL MORPH Reviewed: see result s of individual morphologies Normal [place] Comment on above: Order Comment: Speci men Type: BLOOD SPECIMEN Ordering Facility: [facility] Address: [address] [place] [address] Performed By: #### 1 4196-0 #### [facility] CLIA [id number] [address] [place] [address] #### 33140-8 #### [facility] CLIA [id number] [address] [place] [address] LAB CLIA [id number] [address] [place] [address] [place] WBC (Bld) [#/Vol] 9.07 10*3/uL Normal 3.70-11.00 [facility] Comment on above: Order Comment: Speci men Type: BLOOD SPECIMEN Ordering Facility: [facility] Address: [address] [place] [address] Performed By: #### 1 4196-0 #### [facility] CLIA [id number] [address] [place] [address] #### 74723-2 #### [facility] CLIA [id number] [address] [place] [address] LAB CLIA [id number] [address] [place] [address] [place] CNOVSPon 09-04-2023 CNOVSP Visit (SP) Office ([facility]) LAM BEST ([id number]) 1945 M Date Time Provider Department 09/04/23 11:15 AM [facility] During your visit today, we recorded the following information about you: Temperature Pulse Respiration Blood pressure 97.5 degrees 61/minute 18/minute 159/40 Weight 102.3 kg Austin Springer MD 09/04/2023 7:29 PM Signed NAME: Lam Best CLINIC NO.: [id number] DATE OF SERVICE: September 04, 2023 ([place]eg[place]ann) Referring Provider: Dr. Adonay Zhang ([facility]) Consultation requested by Dr. Zhang for an opinion regarding Mr. Lam Best, and my final recommendations will be communicated back to the requesting physician by way of shared medical record or letter via US mail. Additional Clinicians involved in Lam Best's care: DIAGNOSIS: Iron deficiency anemia ASSESSMENT: 78 year old man with heme + stools and iron deficiency anemia. He is intolerant to oral iron therapy. Will need IV iron for replacement and diagnostic endoscopic evaluation. Suspect he has recurring ulcer. PLAN: Labs today, include iron studies Triage call results to daughter Heidi Plan for IV iron when approved Prefer Monday the , if possible RTC in 6 weeks Labs same day, include iron studies - HPI: CASE HISTORY: Reverse Chronological Order 08/25/2023 - Stool for occult blood: positive 08/11/2023 - Ferritin: 379, Iron: 14, Folate: 27 08/09/2023 - CBC: 8.4 > 8.0 / 31.1 < 321, MCV: 69.6 Initial Visit, September 04, 2023: Lam Best presents today with his daughter, Heidi, for a Hematology and Oncology evaluation. He is a 78 year old male who has a prior history of diabetes and edema. He does not drink alcohol and is a former smoker. Admitted with Covid and pneumonia in 2020, labs showed anemia. Subsequent colonoscopy + EGD showed ulcers and polyps. Lost a lot of weight during a viral infection in 2020, needed infusions of antibiotics. Labs after were normal. Reports stomach pain, feels like gas, since December 2022. He has felt progressively worse since then. He has shown signs of confusion, light-headedness, and fatigue recently. He tried taking oral iron recently but stopped due to intolerance. He is SOB on short walks, according to Heidi. Endorses pica to ice. Outside iron studies indicate iron deficiency. He will receive IV iron when approved. May need transfusion. He has an EGD scheduled for later this month. Will likely need a colonoscopy. 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 His in December 2022. - REVIEW OF SYSTEMS Per HPI and otherwise negative by full review of organ systems. - ECOG PERFORMANCE STATUS: 2 PHYSICAL EXAMINATION: Vitals: BP 159/40[recheck BP[ Pulse 61 Temp (Src) 97.5 (Temporal) Resp 18 Wt 225 lb 8.5 oz (102.3kg) SpO2 96% There is no height or weight on file to calculate BSA. Exam limited to gross visualization where appropriate. Gen.: This is an age-appropriate patient in no acute distress. Head: Appears atraumatic with no visible lesions. Eyes: Pupils equally round and reactive to light, extraocular muscles are intact. Neck: Supple. Respiratory: Appears to be respiring comfortably. Neurologic: Nonfocal to gross visualization. Alert and oriented ?3. Psychiatric: No evidence of inappropriate anxiety or depression. Skin: Visible areas of skin without rash, lesions, wounds or petechiae. - ALLERGIES: ALLERGIES Not on File MEDICATIONS: ADULT LOW DOSE ASPIRIN ORAL Take by mouth. vitamin B complex (SUPER B COMPLEX ORAL) Take by mouth. POTASSIUM CHLORIDE ORAL Take by mouth. simvastatin (ZOCOR) 20 mg tablet Take 20 mg by mouth daily at bedtime. Clobetasol Propionate 0.05 % gel Apply to affected area. doxazosin (CARDURA) 4 mg tablet Take 4 mg by mouth daily at bedtime. furosemide (LASIX) 40 mg tablet Take 40 mg by mouth two times a day. glimepiride (AMARYL) 4 mg tablet Take 4 mg by mouth daily with breakfast. empagliflozin (JARDIANCE) 10 mg tablet Take by mouth daily with breakfast. linaclotide (LINZESS) 145 mcg capsule Take by mouth daily at 6 am. metFORMIN (GLUCOPHAGE) 500 mg tablet Take 500 mg by mouth daily with breakfast. metoprolol succinate ER (TOPROL XL) 50 mg 24 hr tablet Take 50 mg by mouth once daily. pantoprazole DR (PROTONIX) 40 mg tablet Take 40 mg by mouth once daily. ALPRAZolam (XANAX) 0.25 mg tablet Take 0.25 mg by mouth at bedtime as needed. (Patient not taking: Reported on 09/04/2023) (more content not included)... Normal [place] Samira 09-04-2023 AMILCAR Telephone ([facility]) LAM BEST ([id number]) 1945 M Date Time Provider Department 09/04/23 [facility] During your visit today, we recorded the following information about you: Zoe Garrison 09/04/2023 12:32 PM Signed Triage: Please call daughterHeidi with results. Thanks! Nasra West RN 09/05/2023 11:34 AM Signed Franco: please verify need to continue with IV iron, as ordered. Pt is currently scheduled 09/14, , . KASH Chowdhury Vivek, MD 09/05/2023 12:48 PM Signed Most definitely Nasra Lorenzana RN 09/05/2023 1:05 PM Signed Daughter updated and appts verified. Nasra Lorenzana RN Allergies As of Date: 09/04/2023 (Not on File) Date Reviewed: 09/04/2023 Reviewed by: Werenr Sonia - Fully Assessed Reason for Visit: Results [95] Prescriptions as of 09/05/2023 - ADULT LOW DOSE ASPIRIN ORAL Take by mouth. - vitamin B complex (SUPER B COMPLEX ORAL) Take by mouth. - POTASSIUM CHLORIDE ORAL Take by mouth. - simvastatin (ZOCOR) 20 mg tablet Take 20 mg by mouth daily at bedtime. - ALPRAZolam (XANAX) 0.25 mg tablet Take 0.25 mg by mouth at bedtime as needed. - Clobetasol Propionate 0.05 % gel Apply to affected area. - doxazosin (CARDURA) 4 mg tablet Take 4 mg by mouth daily at bedtime. - furosemide (LASIX) 40 mg tablet Take 40 mg by mouth two times a day. - glimepiride (AMARYL) 4 mg tablet Take 4 mg by mouth daily with breakfast. - empagliflozin (JARDIANCE) 10 mg tablet Take by mouth daily with breakfast. - linaclotide (LINZESS) 145 mcg capsule Take by mouth daily at 6 am. - metFORMIN (GLUCOPHAGE) 500 mg tablet Take 500 mg by mouth daily with breakfast. - metoprolol succinate ER (TOPROL XL) 50 mg 24 hr tablet Take 50 mg by mouth once daily. - pantoprazole DR (PROTONIX) 40 mg tablet Take 40 mg by mouth once daily. Problem List As Of Date 09/04/2023 Noted Resolved Iron deficiency anemia due to chronic blood los*09/04/2023 Morbid obesity (HCC) [E66.01] 09/04/2023 Encounter Status:Closed by NASRA LORENZANA on 09/05/23 Normal [place] Comprehensive metabolic 2000 panelon 09-04-2023 Albumin [Mass/Vol] 4.7 g/dL Normal 3.9-4.9 [facility] Comment on above: Order Comment: Speci men Type: BLOOD SPECIMEN Ordering Facility: [facility] Address: [address] [place] [address] Performed By: #### 2 4323-8 #### [facility] CLIA [id number] [address] [place] [address] ALP [Catalytic activity/Vol] 75 U/L Normal 38-113 [place] Comment on above: Order Comment: Speci men Type: BLOOD SPECIMEN Ordering Facility: [facility] Address: [address] [place] [address] Performed By: #### 2 4323-8 #### [facility] CLIA [id number] [address] [place] [address] ALT [Catalytic activity/Vol] 13 U/L Normal 10-54 [place] Comment on above: Order Comment: Speci men Type: BLOOD SPECIMEN Ordering Facility: [facility] Address: [address] [place] [address] Performed By: #### 2 4323-8 #### [facility] CLIA [id number] [address] [place] [address] Anion gap [Moles/Vol] 12 mmol/L Normal 9-18 [place] Comment on above: Order Comment: Speci men Type: BLOOD SPECIMEN Ordering Facility: [facility] Address: [facility] [place] [address] Performed By: #### 2 4323-8 #### [facility] CLIA [id number] [address] [place] [address]24 AST [Catalytic activity/Vol] 17 U/L Normal 14-40 [place] Comment on above: Order Comment: Speci men Type: BLOOD SPECIMEN Ordering Facility: [facility] Address: [address] [place] [address] Performed By: #### 2 4323-8 #### [facility] CLIA [id number] [address] [place] [address] Bilirubin [Mass/Vol] 0.2 mg/dL Normal 0.2-1.3 [facility] Comment on above: Order Comment: Speci men Type: BLOOD SPECIMEN Ordering Facility: [facility] Address: [address] [place], [place] [address] Performed By: #### 2 4323-8 #### [facility] CLIA [id number] [address] [place] [address] Calcium [Mass/Vol] 9.9 mg/dL Normal 8.5-10.2 [facility] Comment on above: Order Comment: Speci men Type: BLOOD SPECIMEN Ordering Facility: [facility] Address: [address] [place], [place] [address] Performed By: #### 2 4323-8 #### [facility] CLIA [id number] [address] [place] [address]608 Chloride [Moles/Vol] 101 mmol/L Normal 97-105 [facility] Comment on above: Order Comment: Speci men Type: BLOOD SPECIMEN Ordering Facility: [facility] Address: [address] [place] [address] Performed By: #### 2 4323-8 #### [facility] CLIA [id number] [address] [place] [address] CO2 [Moles/Vol] 27 mmol/L Normal 22-30 [place] Comment on above: Order Comment: Speci men Type: BLOOD SPECIMEN Ordering Facility: [facility] Address: [address] [place] [address] Performed By: #### 2 4323-8 #### [facility] CLIA [id number] [facility] [place] [address] Creatinine [Mass/Vol] 0.99 mg/dL Normal 0.73-1.22 [place] Comment on above: Order Comment: Jono graves Type: BLOOD SPECIMEN Ordering Facility: [facility] Address: [address] [place], [place] [address] Performed By: #### 2 4323-8 #### [facility] CLIA [id number] [address] [place] [address] Creatinine and Glomerular filtration rate.predicted panel (S/P/Bld) 78 mL/min/1.73m??? Normal >=60 [place] Comment on above: Order Comment: Jono graves Type: BLOOD SPECIMEN Ordering Facility: [facility] Address: [address] [place] [address] Result Comment: Odette mated Glomerular Filtration Rate (eGFR) is calculated using the 2020 CKD-EPI creatinine equation. This equation utilizes serum creatinine, sex, and age as parameters. The creatinine assay has traceable calibration to isotope dilution-mass spectrometry. Refer to KDIGO guidelines for clinical interpretation. In patients with unstable renal function, e.g. those with acute kidney injury, the eGFR may not accurately reflect actual GFR. Performed By: #### 2 4323-8 #### [facility] CLIA [id number] [address] [place] [address] Glucose [Mass/Vol] 192 mg/dL High 74-99 [facility] Comment on above: Order Comment: Jono graves Type: BLOOD SPECIMEN Ordering Facility: [facility] Address: [address] [place], [place] [address] Result Comment: The [place] Diabetes Association (ADA) provides guidance for cutoff values for fasting glucose and random glucose. The ADA defines fasting as no caloric intake for at least 8 hours. Fasting plasma glucose results between 100 to 125 mg/dL indicate increased risk for diabetes (prediabetes). Fasting plasma glucose results greater than or equal to 126 mg/dL meet the criteria for diagnosis of diabetes. In the absence of unequivocal hyperglycemia, results should be confirmed by repeat testing. In a patient with classic symptoms of hyperglycemia or hyperglycemic crisis, random plasma glucose results greater than or equal to 200 mg/dL meet the criteria for diagnosis of diabetes. Reference: Standards of Medical Care in Diabetes 2016, [place] Diabetes Association. Diabetes Care. 2016.39(Suppl 1). Performed By: #### 2 4323-8 #### [facility] CLIA [id number] [address] [place] [address] Potassium [Moles/Vol] 3.9 mmol/L Normal 3.7-5.1 [place] Comment on above: Order Comment: Speci men Type: BLOOD SPECIMEN Ordering Facility: [facility] Address: [address] [place] [address] Performed By: #### 2 4323-8 #### [facility] CLIA [id number] [address] [place] [address] 72001 Protein [Mass/Vol] 7.3 g/dL Normal 6.3-8.0 [facility] Comment on above: Order Comment: Speci men Type: BLOOD SPECIMEN Ordering Facility: [facility] Address: [address] [place] [address] Performed By: #### 2 4323-8 #### [facility] CLIA [id number] [address] [place] [address]56 Sodium [Moles/Vol] 140 mmol/L Normal 136-144 [facility] Comment on above: Order Comment: Speci men Type: BLOOD SPECIMEN Ordering Facility: [facility] Address: [address] [place] [address] Performed By: #### 2 4323-8 #### [facility] CLIA [id number] [address] [place] [address] 19722 Urea nitrogen [Mass/Vol] 20 mg/dL Normal 9-24 [place] Comment on above: Order Comment: Speci men Type: BLOOD SPECIMEN Ordering Facility: [facility] Address: [facility] [place] [address] Performed By: #### 2 4323-8 #### [facility] CLIA [id number] [address] [place] [address]1155 Albumin [Mass/Vol] 4.7 g/dL 3.9 - 4.9 g/dL [facility] ALP [Catalytic activity/Vol] 75 U/L 38 - 113 U/L [facility] ALT [Catalytic activity/Vol] 13 U/L 10 - 54 U/L [facility] Anion gap [Moles/Vol] 12 mmol/L 9 - 18 mmol/L [facility] AST [Catalytic activity/Vol] 17 U/L 14 - 40 U/L [facility] Bilirubin [Mass/Vol] 0.2 mg/dL 0.2 - 1 .3 mg/dL [facility] Calcium [Mass/Vol] 9.9 mg/dL 8.5 - 10. 2 mg/dL [facility] Chloride [Moles/Vol] 101 mmol/L 97 - 10 5 mmol/L [facility] CO2 [Moles/Vol] 27 mmol/L 22 - 30 mmol/L [facility] Creatinine [Mass/Vol] 0.99 mg/dL 0.73 - 1.22 mg/dL [facility] Estimated Glomerular Filtration Rate 78 mL/min/1.73m >=60 mL/min/1.73m [facility] Glucose [Mass/Vol] 192 mg/dL High 74 - 99 mg/dL [facility] Potassium [Moles/Vol] 3.9 mmol/L 3.7 - 5.1 mmol/L [facility] Protein [Mass/Vol] 7.3 g/dL 6.3 - 8.0 g/dL [facility] Sodium [Moles/Vol] 140 mmol/L 136 - 144 mmol/L [facility] Urea nitrogen [Mass/Vol] 20 mg/dL 9 - 24 mg/dL [facility] Ferritin SerPl-mCncon 2023 Ferritin [Mass/Vol] 8.6 ng/mL Low 30.3-565.7 [facility] Comment on above: Order Comment: Speci men Type: BLOOD SPECIMEN Ordering Facility: [facility] Address: [address] [place] [address] Performed By: #### 4 542-7, 29617-3, 2276-4 #### [facility] CLIA [id number] [address] [place] [address] [place] Folate SerPl-mCncon 09-04-19 24 Folate [Mass/Vol] ng/mL Normal >4.7 [facility] Comment on above: Order Comment: Jono graves Type: BLOOD SPECIMEN Ordering Facility: [facility] Address: [address] [place] [address] Result Comment: A re sult of > 20 ng/mL is not necessarily indicative of a pathologic or treatable condition: it reflects a limitation of the test methodology. Assay reference range: 4.8 to 24.2 ng/mL. Suitable for detection of folate deficiency. Reference: Folate III (Folate III) [package insert V 1.0 Icelandic]. [facility], [place], [place]: May 2015. Performed By: #### 2 132-9, 2284-8 #### [facility] CLIA [id number] [address] [place] [address] [place] Haptoglob SerPl-mCncon 09-03 Haptoglobin [Mass/Vol] 225 mg/dL Normal 31-238 [place] Comment on above: Order Comment: Sudhai men Type: BLOOD SPECIMEN Ordering Facility: [facility] Address: [address] [place] [address] Performed By: #### 4 542-7, 64553-6, 2276-4 #### [facility] CLIA [id number] [address] [place] [address] [place] Iron and Iron binding capaci ty panelon 09-04-2023 Iron [Mass/Vol] 13 ug/dL Low 41-186 [place] Comment on above: Order Comment: Sudhai men Type: BLOOD SPECIMEN Ordering Facility: [facility] Address: [address] [place] [address] Performed By: #### 4 542-7, 63948-6, 2276-4 #### [facility] CLIA [id number] [address] [place] [address] [place] Iron binding capacity [Mass/Vol] 457 ug/dL High 232-386 [place] Comment on above: Order Comment: Speci men Type: BLOOD SPECIMEN Ordering Facility: [facility] Address: [address] [place] [address] Performed By: #### 4 542-7, 63086-7, 2276-4 #### [facility] CLIA [id number] [address] [place] [address] [place] Iron/TIBC [Molar ratio] 2.8 % Low 15.0-57.0 [place] Comment on above: Order Comment: Speci men Type: BLOOD SPECIMEN Ordering Facility: [facility] Address: [address] [place] [address] Performed By: #### 4 542-7, 63389-2, 2276-4 #### [facility] CLIA [id number] [address] [place] [address] [place] RETIC COUNTon 09-04-2023 Reticulocytes (Bld) [#/Vol] 0.46694 10*3/uL 0.018 - 0.100 M/uL [facility] Retics #on 09-04-2023 Reticulocytes (Bld) [#/Vol] 0.04508 10*3/uL Normal 0.018-0.100 [place] Comment on above: Order Comment: Speci men Type: BLOOD SPECIMEN Ordering Facility: [facility] Address: [address] [place] [address] Performed By: #### 1 4196-0 #### [facility] CLIA [id number] [address] [place] [address] #### 63132-2 #### [facility] CLIA [id number] [address] [place] [address] LAB CLIA [id number] [address] [place] [address] [place] Reticulocytes (Bld) [#/Vol]o n 09-04-2023 Reticulocytes/100 RBC (Bld) 1.3 % Normal 0.4-2.0 [place] Comment on above: Order Comment: Speci men Type: BLOOD SPECIMEN Ordering Facility: [facility] Address: [address] [place] [address] Performed By: #### 1 4196-0 #### [facility] CLIA [id number] [address] [place] [address] #### 34536-6 #### [facility] CLIA [id number] [address] [place], [place] [id number] [facility] CLIA [id number] [address] [place] [address] [place] Reticulocytes/100 RBC (Bld) 1.3 % 0.4 - 2.0 % [facility] Vit B12 SerPl-ncon 024 Cobalamin (Vitamin B12) [Mass/Vol] 618 pg/mL Normal 232-1245 [place] Comment on above: Order Comment: Speci men Type: BLOOD SPECIMEN Ordering Facility: [facility] Address: [address] [place] [address] Performed By: #### 2 132-9, 2284-8 #### [facility] CLIA [id number] [address] [place] [address] [place] Consent for Procedure/Surger yon 08-30-2023 Consent for Procedure/Surgery [id number]# 1.00TIFF Normal [facility] Facesheeton 08-30-2023 Facesheet [id number]# 1.00TIFF Normal [facility] Lab Reportson 08-16-2023 Lab Reports [id number]#1 .00TIFF Normal [facility] Physician Referralon 024 Physician Referral [id number]#1 .00TIFF Normal [facility] CBC AUTO DIFFon 10-14-2022 BASO # 0.1 103/ul Normal 0.0-0.1 [facility] Comment on above: Performed By: #### T SH, LIVER, LIPID, BMP, T7 #### [facility] [address] [place] [address] Dr. Roberto Cabral Basophils/100 WBC (Bld) 0.7 % Normal 0.2-2.0 [facility] Comment on above: Performed By: #### T SH, LIVER, LIPID, BMP, T7 #### [facility] [address] [place] [address] Dr. Roberto Cabral EO # 0.5 103/ul Normal 0.0-0.7 [facility] Comment on above: Performed By: #### T SH, LIVER, LIPID, BMP, T7 #### [facility] [address] [place] [address] Dr. Roberto Cabral Eosinophils/100 WBC (Bld) 5.3 % Normal 0.9-7.0 [facility] Comment on above: Performed By: #### T SH, LIVER, LIPID, BMP, T7 #### [facility] [address] [place] [address] Dr. Roberto Cabral Erythrocyte distribution width (RBC) [Ratio] 15.8 % Critically high 11.0-15.0 [facility] Comment on above: Performed By: #### T SH, LIVER, LIPID, BMP, T7 #### [facility] [address] [place] [address] Dr. Roberto Cabral Hematocrit (Bld) [Volume fraction] 34.4 % Critically low 42.0-54.0 [facility] Comment on above: Performed By: #### T SH, LIVER, LIPID, BMP, T7 #### [facility] [address] [place] [address] Dr. Roberto Cabral Hemoglobin (Bld) [Mass/Vol] 10.2 g/dL Critically low 14.0-18.0 [facility] Comment on above: Performed By: #### T SH, LIVER, LIPID, BMP, T7 #### [facility] [address] [place] [address] Dr. Roberto Cabral IG # 0.03 10e3/ul Normal 0.00-0.03 [facility] Comment on above: Performed By: #### T SH, LIVER, LIPID, BMP, T7 #### [facility] [address] [place] [address] Dr. Roberto Cabral IG % 0.3 % Normal 0.0-0.5 [facility] Comment on above: Performed By: #### T SH, LIVER, LIPID, BMP, T7 #### [facility] [address] [place] [address] Dr. Roberto Cabral LYMPH # 1.9 103/ul Normal 1.2-3.8 [facility] Comment on above: Performed By: #### T SH, LIVER, LIPID, BMP, T7 #### [facility] [address] [place] [address] Dr. Roberto Cabral Lymphocytes/100 WBC (Bld) 21.0 % Normal 20.5-60.0 [facility] Comment on above: Performed By: #### T SH, LIVER, LIPID, BMP, T7 #### [facility] [address] [place] [address] Dr. Roberto Cabral MANUAL DIFF REQ NO Normal [facility] Comment on above: Performed By: #### T SH, LIVER, LIPID, BMP, T7 #### [facility] [address] [place] [address] Dr. Roberto Cabral MCH (RBC) [Entitic mass] 22.7 pg Critically low 25.9-34.0 [facility] Comment on above: Performed By: #### T SH, LIVER, LIPID, BMP, T7 #### [facility] [address] [place] [address] Dr. Roberto Cabral MCHC (RBC) [Mass/Vol] 29.7 g/dL Critically low 29.9-35.2 [facility] Comment on above: Performed By: #### T SH, LIVER, LIPID, BMP, T7 #### [facility] [address] [place] [address] Dr. Roberto Cabral MCV (RBC) [Entitic vol] 76.6 fL Critically low 80.0-94.0 [facility] Comment on above: Performed By: #### T SH, LIVER, LIPID, BMP, T7 #### [facility] [address] [address] [address] Roberto Cabral MONO # 0.9 103/ul Critically high 0.3-0.8 [facility] Comment on above: Performed By: #### T SH, LIVER, LIPID, BMP, T7 #### [facility] [address] [place] [address] Dr. Roberto Cabral Monocytes/100 WBC (Bld) 10.0 % Normal 1.7-12.0 [facility] Comment on above: Performed By: #### T SH, LIVER, LIPID, BMP, T7 #### [facility] [address] [place] [address] Dr. Roberto Cabral NEUT # 5.7 103/ul Normal 1.4-6.5 [facility] Comment on above: Performed By: #### T SH, LIVER, LIPID, BMP, T7 #### [facility] [address] [place] [address] Dr. Roberto Cabral Neutrophils/100 WBC (Bld) 62.7 % Normal 43.0-75.0 [facility] Comment on above: Performed By: #### T SH, LIVER, LIPID, BMP, T7 #### [facility] [address] [place] [address] Dr. Roberto Cabral Platelet mean volume (Bld) [Entitic vol] 9.8 fL Normal 9.5-13.5 [facility] Comment on above: Performed By: #### T SH, LIVER, LIPID, BMP, T7 #### [facility] [address] [place] [address] Dr. Roberto Cabral PLT 290 103/ul Normal 150-450 [facility] Comment on above: Performed By: #### T SH, LIVER, LIPID, BMP, T7 #### [facility] [address] [place] [address] Dr. Roberto Cabral RBC 4.49 106/ul Critically low 4.70-6.10 [facility] Comment on above: Performed By: #### T SH, LIVER, LIPID, BMP, T7 #### [facility] [address] [address] [address] Roberto Cabral WBC 9.1 103/ul Normal 4.0-11.0 [facility] Comment on above: Performed By: #### T SH, LIVER, LIPID, BMP, T7 #### [facility] [address] [address] [address] Roberto Cabral FREE THYROXINE INDEX T7on FTI 2.73 Normal 1.30-4.50 [facility] Comment on above: Performed By: #### T SH, LIVER, LIPID, BMP, T7 #### [facility] [address] [address] [address] Roberto Cabral T3U 35.0 % Normal 33.0-40.0 [facility] Comment on above: Performed By: #### T SH, LIVER, LIPID, BMP, T7 #### [facility] [address] [place] [address] Dr. Roberto Cabral T4 [Mass/Vol] 7.80 ug/dL Normal 4.50-12.10 [facility] Comment on above: Performed By: #### T SH, LIVER, LIPID, BMP, T7 #### [facility] [address] [place] [address] Dr. Roberto Cabrla GLYCOHEMOGLOBIN A1Con 2022 ADA RECOMMENDATION SEE BELOW Normal [facility] Comment on above: Result Comment: ADA RECOMMENDED LIMIT 4.0 - 6.0 ADA THERAPEUTIC TARGET < 7.0 ACTION SUGGESTED > 7.0 Performed By: #### A 1C #### [facility] [address] [place] [address] Dr. Roberto Cabral Glucose [Mass/Vol] 126 mg/dL Normal [facility] Comment on above: Performed By: #### A 1C #### [facility] [address] [place] [address] Dr. Roberto Cabral HbA1c (Bld) [Mass fraction] 6.0 % Normal 4.5-6.2 [facility] Comment on above: Performed By: #### A 1C #### [facility] [address] [place] [address] Dr. Roberto Cabral LIPID PROFILEon 10-14-2022 CHOL-HDL RATIO NORM SEE BELOW Normal [facility] Comment on above: Result Comment: 3.3 - 4.4 LOW RISK 4.4 - 7.1 AVERAGE RISK 7.1 - 11.0 MODERATE RISK >11.0 HIGH RISK Performed By: #### T SH, LIVER, LIPID, BMP, T7 #### [facility] [address] [address] [address] Roberto Cabral Cholesterol [Mass/Vol] 129 mg/dL Normal <=200 [facility] Comment on above: Performed By: #### T SH, LIVER, LIPID, BMP, T7 #### [facility] [address] [address] [address] Roberto Cabral Cholesterol in HDL [Mass/Vol] 45 mg/dL Normal 40-60 [facility] Comment on above: Performed By: #### T SH, LIVER, LIPID, BMP, T7 #### [facility] [address] [address] [address] Roberto Cabral Cholesterol in LDL [Mass/Vol] 62.4 mg/dL Normal [facility] Comment on above: Performed By: #### T SH, LIVER, LIPID, BMP, T7 #### [facility] [address] [address] [address] Roberto Cabral Cholesterol.total/Ch olesterol in HDL [Mass ratio] 2.9 {ratio} Normal [facility] Comment on above: Performed By: #### T SH, LIVER, LIPID, BMP, T7 #### [facility] [address] [address] [address] Roberto Cabral HDL NORMAL > or = 60 mg/dl - LO W CARDIOVASCULAR RISK <40 mg/dl - HIGH CARDIOVASCULAR RISK Normal [facility] Comment on above: Performed By: #### T SH, LIVER, LIPID, BMP, T7 #### [facility] [address] [address] [address] Roberto Cabral LDL CALC NORMAL SEE BELOW Normal [facility] Comment on above: Result Comment: <100 mg/dl OPTIMAL 100 - 129 mg/dl NEAR OR ABOVE OPTIMAL 130 - 159 mg/dl BORDERLINE HIGH 160 - 189 mg/dl HIGH >190 mg/dl VERY HIGH Performed By: #### T SH, LIVER, LIPID, BMP, T7 #### [facility] [address] [address] [address] Roberto Cabral Triglyceride [Mass/Vol] 108 mg/dL Normal <=150 [facility] Comment on above: Performed By: #### T SH, LIVER, LIPID, BMP, T7 #### [facility] [address] [address] [address] Roberto Cabral VLDL CALC 21.6 mg/dL Normal [facility] Comment on above: Performed By: #### T SH, LIVER, LIPID, BMP, T7 #### [facility] [address] [place] [address] Dr. Roberto Cabral LIVER PROFILEon 10-14-2022 Albumin [Mass/Vol] 3.6 g/dL Normal 3.4-5.0 [facility] Comment on above: Performed By: #### T SH, LIVER, LIPID, BMP, T7 #### [facility] [address] [place] [address] Dr. Roberto Cabral Albumin/Globulin [Mass ratio] 1.0 {ratio} Normal [facility] Comment on above: Performed By: #### T SH, LIVER, LIPID, BMP, T7 #### [facility] [address] [place] [address] Dr. Roberto Cabral ALP [Catalytic activity/Vol] 80 U/L Normal 46-116 [facility] Comment on above: Performed By: #### T SH, LIVER, LIPID, BMP, T7 #### [facility] [address] [address] [address] Roberto Cabral ALT [Catalytic activity/Vol] 21 U/L Normal 16-63 [facility] Comment on above: Performed By: #### T SH, LIVER, LIPID, BMP, T7 #### [facility] [address] [place] [address] Dr. Roberto Cabral AST [Catalytic activity/Vol] 14 U/L Critically low 15-37 [facility] Comment on above: Performed By: #### T SH, LIVER, LIPID, BMP, T7 #### [facility] [address] [place] [address] Dr. Roberto Cabral BILI, CONJUGATED 0.1 mg/dL Normal 0.0-0.2 [facility] Comment on above: Performed By: #### T SH, LIVER, LIPID, BMP, T7 #### [facility] [address] [place] [address] Dr. Roberto Cabral Bilirubin [Mass/Vol] 0.2 mg/dL Normal 0.2-1.0 [facility] Comment on above: Performed By: #### T SH, LIVER, LIPID, BMP, T7 #### [facility] [address] [place] [address] Dr. Roberto Cabral Globulin (S) [Mass/Vol] 3.6 g/dL Normal [facility] Comment on above: Performed By: #### T SH, LIVER, LIPID, BMP, T7 #### [facility] [address] [place] [address] Dr. Roberto Cabral Protein [Mass/Vol] 7.2 g/dL Normal 6.4-8.2 [facility] Comment on above: Performed By: #### T SH, LIVER, LIPID, BMP, T7 #### [facility] [address] [place] [address] Dr. Roberto Cabral PROF CHEM 8 (BAS METB)on Anion gap [Moles/Vol] 13.9 mmol/L Normal [facility] Comment on above: Performed By: #### T SH, LIVER, LIPID, BMP, T7 #### [facility] [address] [place] [address] Dr. Roberto Cabral Calcium [Mass/Vol] 9.2 mg/dL Normal 8.5-10.1 [facility] Comment on above: Performed By: #### T SH, LIVER, LIPID, BMP, T7 #### [facility] [address] [place] [address] Dr. Roberto Cabral Chloride [Moles/Vol] 110 mmol/L Critically high 98-107 [facility] Comment on above: Performed By: #### T SH, LIVER, LIPID, BMP, T7 #### [facility] [address] [address] [address] Roberto Cabral CO2 [Moles/Vol] 26.2 mmol/L Normal 21.0-32.0 [facility] Comment on above: Performed By: #### T SH, LIVER, LIPID, BMP, T7 #### [facility] [address] [place] [address] Dr. Roberto Cabral Creatinine [Mass/Vol] 1.02 mg/dL Normal 0.70-1.30 [facility] Comment on above: Performed By: #### T SH, LIVER, LIPID, BMP, T7 #### [facility] [address] [place] [address] Dr. Roberto Cabral EGFR-AF MALTESE >60 Normal >=60 [facility] Comment on above: Performed By: #### T SH, LIVER, LIPID, BMP, T7 #### [facility] [address] [place] [address] Dr. Roberto Cabral EGFR-NON AF MALTESE >60 Normal >=60 [facility] Comment on above: Performed By: #### T SH, LIVER, LIPID, BMP, T7 #### [facility] [address] [place] [address] Dr. Roberto Cabral Glucose [Mass/Vol] 120 mg/dL Critically high 74-106 [facility] Comment on above: Performed By: #### T SH, LIVER, LIPID, BMP, T7 #### [facility] [address] [place] [address] Dr. Roberto Cabral Potassium [Moles/Vol] 4.1 mmol/L Normal 3.5-5.1 [facility] Comment on above: Performed By: #### T SH, LIVER, LIPID, BMP, T7 #### [facility] [address] [place] [address] Dr. Roberto Cabral Sodium [Moles/Vol] 146 mmol/L Critically high 136-145 [facility] Comment on above: Performed By: #### T SH, LIVER, LIPID, BMP, T7 #### [facility] [address] [place] [address] Dr. Roberto Cabral Urea nitrogen [Mass/Vol] 26.0 mg/dL Critically high 7.0-18.0 [facility] Comment on above: Performed By: #### T SH, LIVER, LIPID, BMP, T7 #### [facility] [address] [id number] Roberto Cabral Urea nitrogen/Creatinine [Mass ratio] 25.5 mg/mg Normal [facility] Comment on above: Performed By: #### T SH, LIVER, LIPID, BMP, T7 #### [facility] [address] [place], [place] [address] Dr. Roberto Cabral TSHon 10-14-2022 TSH 1.674 uIU/mL Normal 0.358-3.740 [facility] Comment on above: Performed By: #### T SH, LIVER, LIPID, BMP, T7 #### [facility] [address] [address] [address] Roberto Cabral Covid-19 PCR ([facility])on 02-01 SARS-CoV-2 (COVID-19) RNA JOSÉ+probe Ql (Unsp spec) Detected Critically abnormal NOT DETECTED [facility] Comment on above: Result Comment: This test is not yet approved or cleared by the [place] FDA. When there are no FDA-approved or cleared tests available, and other criteria are met, FDA can make tests available under an emergency access mechanism called an Emergency Use Authorization (EUA). The EUA for this test is supported by the [place] of Health and Human Service's (HHS's) declaration [...] T SH, LIVER, LIPID, BMP, T7 #### [facility] [address] [address] [address] Roberto Cabral PROF 14(COMP METB)on 022 Albumin [Mass/Vol] 3.3 g/dL Critically low 3.4-5.0 [facility] Comment on above: Performed By: #### T SH, LIVER, LIPID, BMP, T7 #### [facility] [address] [place] [address] Dr. Roberto Cabral Albumin/Globulin [Mass ratio] 1.0 {ratio} Normal [facility] Comment on above: Performed By: #### T SH, LIVER, LIPID, BMP, T7 #### [facility] [address] [place] [address] Dr. Roberto Cabral ALP [Catalytic activity/Vol] 95 U/L Normal 46-116 [facility] Comment on above: Performed By: #### T SH, LIVER, LIPID, BMP, T7 #### [facility] [address] [place] [address] Dr. Roberto Cabral ALT [Catalytic activity/Vol] 22 U/L Normal 16-63 [facility] Comment on above: Performed By: #### T SH, LIVER, LIPID, BMP, T7 #### [facility] [address] [place] [address] Dr. Roberto Cabral Anion gap [Moles/Vol] 14.0 mmol/L Normal [facility] Comment on above: Performed By: #### T SH, LIVER, LIPID, BMP, T7 #### [facility] [address] [place] [address] Dr. Roberto Cabral AST [Catalytic activity/Vol] 12 U/L Critically low 15-37 [facility] Comment on above: Performed By: #### T SH, LIVER, LIPID, BMP, T7 #### [facility] [address] [place] [address] Dr. Roberto Cabral Bilirubin [Mass/Vol] 0.2 mg/dL Normal 0.2-1.0 [facility] Comment on above: Performed By: #### T SH, LIVER, LIPID, BMP, T7 #### [facility] [address] [place] [address] Dr. Roberto Cabral Calcium [Mass/Vol] 8.6 mg/dL Normal 8.5-10.1 [facility] Comment on above: Performed By: #### T SH, LIVER, LIPID, BMP, T7 #### [facility] [address] [address] [address] Roberto Cabral Chloride [Moles/Vol] 110 mmol/L Critically high 98-107 [facility] Comment on above: Performed By: #### T SH, LIVER, LIPID, BMP, T7 #### [facility] [address] [place] [address] Dr. Roberto Cabral CO2 [Moles/Vol] 22.6 mmol/L Normal 21.0-32.0 [facility] Comment on above: Performed By: #### T SH, LIVER, LIPID, BMP, T7 #### [facility] [address] [place] [address] Dr. Roberto Cabral Creatinine [Mass/Vol] 1.05 mg/dL Normal 0.70-1.30 [facility] Comment on above: Performed By: #### T SH, LIVER, LIPID, BMP, T7 #### [facility] [address] [place] [address] Dr. Roberto Cabral EGFR-AF MALTESE >60 Normal >=60 [facility] Comment on above: Performed By: #### T SH, LIVER, LIPID, BMP, T7 #### [facility] [address] [place] [address] Dr. Roberto Cabral EGFR-NON AF MALTESE >60 Normal >=60 [facility] Comment on above: Performed By: #### T SH, LIVER, LIPID, BMP, T7 #### [facility] [address] [place] [address] Dr. Roberto Cabral Globulin (S) [Mass/Vol] 3.2 g/dL Normal [facility] Comment on above: Performed By: #### T SH, LIVER, LIPID, BMP, T7 #### [facility] [address] [place] [address] Dr. Roberto Cabral Glucose [Mass/Vol] 172 mg/dL Critically high 74-106 [facility] Comment on above: Performed By: #### T SH, LIVER, LIPID, BMP, T7 #### [facility] [address] [place] [address] Dr. Roberto Cabral Potassium [Moles/Vol] 4.6 mmol/L Normal 3.5-5.1 [facility] Comment on above: Performed By: #### T SH, LIVER, LIPID, BMP, T7 #### [facility] [address] [place] [address] Dr. Roberto Cabral Protein [Mass/Vol] 6.5 g/dL Normal 6.4-8.2 [facility] Comment on above: Performed By: #### T SH, LIVER, LIPID, BMP, T7 #### [facility] [address] [place] [address] Dr. Roberto Cabral Sodium [Moles/Vol] 142 mmol/L Normal 136-145 [facility] Comment on above: Performed By: #### T SH, LIVER, LIPID, BMP, T7 #### [facility] [address] [place] [address] Dr. Roberto Cabral Urea nitrogen [Mass/Vol] 14.0 mg/dL Normal 7.0-18.0 [facility] [facility] Comment on above: Performed By: #### T SH, LIVER, LIPID, BMP, T7 #### [facility] [address] [place] [address] Dr. Roberto Cabral Urea nitrogen/Creatinine [Mass ratio] 13.3 mg/mg Normal [facility] Comment on above: Performed By: #### T SH, LIVER, LIPID, BMP, T7 #### [facility] [address] [place] [address] Dr. Roberto Cabral CBC AUTO DIFFon 12-11-2021 BASO # 0.1 103/ul Normal 0.0-0.1 [facility] Comment on above: Performed By: #### T SH, LIVER, LIPID, BMP, T7 #### [facility] [address] [place] [address] Dr. Roberto Cabral Basophils/100 WBC (Bld) 0.3 % Normal 0.2-2.0 [facility] Comment on above: Performed By: #### T SH, LIVER, LIPID, BMP, T7 #### [facility] [address] [place] [address] Dr. Roberto Cabral EO # 0.7 103/ul Normal 0.0-0.7 [facility] Comment on above: Performed By: #### T SH, LIVER, LIPID, BMP, T7 #### [facility] [address] [place] [address] Dr. Roberto Cabral Eosinophils/100 WBC (Bld) 4.5 % Normal 0.9-7.0 [facility] Comment on above: Performed By: #### T SH, LIVER, LIPID, BMP, T7 #### [facility] [address] [place] [address] Dr. Roberto Cabral Erythrocyte distribution width (RBC) [Ratio] 15.7 % Critically high 11.0-15.0 [facility] Comment on above: Performed By: #### T SH, LIVER, LIPID, BMP, T7 #### [facility] [address] [place] [address] Dr. Roberto Cabral Hematocrit (Bld) [Volume fraction] 33.3 % Critically low 42.0-54.0 [facility] Comment on above: Performed By: #### T SH, LIVER, LIPID, BMP, T7 #### [facility] [address] [place] [address] Dr. Roberto Cabral Hemoglobin (Bld) [Mass/Vol] 10.3 g/dL Critically low 14.0-18.0 [facility] Comment on above: Performed By: #### T SH, LIVER, LIPID, BMP, T7 #### [facility] [address] [place] [address] Dr. Roberto Cabral IG # 0.08 10e3/ul Critically high 0.00-0.03 [facility] Comment on above: Performed By: #### T SH, LIVER, LIPID, BMP, T7 #### [facility] [address] [place] [address] Dr. Roberto Cabral IG % 0.5 % Normal 0.0-0.5 [facility] Comment on above: Performed By: #### T SH, LIVER, LIPID, BMP, T7 #### [facility] [address] [place] [address] Dr. Roberto Cabral LYMPH # 1.3 103/ul Normal 1.2-3.8 [facility] Comment on above: Performed By: #### T SH, LIVER, LIPID, BMP, T7 #### [facility] [address] [place] [address] Dr. Roberto Cabral Lymphocytes/100 WBC (Bld) 8.4 % Critically low 20.5-60.0 [facility] Comment on above: Performed By: #### T SH, LIVER, LIPID, BMP, T7 #### [facility] [address] [place] [address] Dr. Roberto Cabral MANUAL DIFF REQ NO Normal [facility] Comment on above: Performed By: #### T SH, LIVER, LIPID, BMP, T7 #### [facility] [address] [place] [address] Dr. Roberto Cabral MCH (RBC) [Entitic mass] 27.9 pg Normal 25.9-34.0 [facility] Comment on above: Performed By: #### T SH, LIVER, LIPID, BMP, T7 #### [facility] [address] [place] [address] Dr. Roberto Cabral MCHC (RBC) [Mass/Vol] 30.9 g/dL Normal 29.9-35.2 [facility] Comment on above: Performed By: #### T SH, LIVER, LIPID, BMP, T7 #### [facility] [address] [place] [address] Dr. Roberto Cabral MCV (RBC) [Entitic vol] 90.2 fL Normal 80.0-94.0 [facility] Comment on above: Performed By: #### T SH, LIVER, LIPID, BMP, T7 #### [facility] [address] [place] [address] Dr. Roberto Cabral MONO # 1.4 103/ul Critically high 0.3-0.8 [facility] Comment on above: Performed By: #### T SH, LIVER, LIPID, BMP, T7 #### [facility] [address] [place] [address] Dr. Roberto Cabral Monocytes/100 WBC (Bld) 8.9 % Normal 1.7-12.0 [facility] Comment on above: Performed By: #### T SH, LIVER, LIPID, BMP, T7 #### [facility] [address] [address] [address] Roberto Cabral NEUT # 12.0 103/ul Critically high 1.4-6.5 [facility] Comment on above: Performed By: #### T SH, LIVER, LIPID, BMP, T7 #### [facility] [address] [address] [address] Roberto Cabral Neutrophils/100 WBC (Bld) 77.4 % Critically high 43.0-75.0 [facility] Comment on above: Performed By: #### T SH, LIVER, LIPID, BMP, T7 #### [facility] [address] [address] [address] Roberto Cabral Platelet mean volume (Bld) [Entitic vol] 10.3 fL Normal 9.5-13.5 [facility] Comment on above: Performed By: #### T SH, LIVER, LIPID, BMP, T7 #### [facility] [address] [address] [address] Roberto Cabral PLT 286 103/ul Normal 150-450 [facility] Comment on above: Performed By: #### T SH, LIVER, LIPID, BMP, T7 #### [facility] [address] [place] [address] Dr. Roberto Cabral RBC 3.69 106/ul Critically low 4.70-6.10 [facility] Comment on above: Performed By: #### T SH, LIVER, LIPID, BMP, T7 #### [facility] [address] [address] [address] Roberto Cabral WBC 15.4 103/ul Critically high 4.0-11.0 [facility] Comment on above: Performed By: #### T SH, LIVER, LIPID, BMP, T7 #### [facility] [address] [place] [address] Dr. Roberto Cabral POINT OF CARE GLUCOSEon 12-01 Glucose [Mass/Vol] 122 mg/dL Critically high 74-106 [facility] Comment on above: Performed By: #### T SH, LIVER, LIPID, BMP, T7 #### [facility] [address] [place] [address] Dr. Roberto Cabral PROF 14(COMP METB)on 022 Albumin [Mass/Vol] 2.8 g/dL Critically low 3.4-5.0 [facility] Comment on above: Performed By: #### T SH, LIVER, LIPID, BMP, T7 #### [facility] [address] [place] [address] Dr. Roberto Cabral Albumin/Globulin [Mass ratio] 1.0 {ratio} Normal [facility] Comment on above: Performed By: #### T SH, LIVER, LIPID, BMP, T7 #### [facility] [address] [place] [address] Dr. Roberto Cabral ALP [Catalytic activity/Vol] 66 U/L Normal 46-116 [facility] Comment on above: Performed By: #### T SH, LIVER, LIPID, BMP, T7 #### [facility] [address] [place] [address] Dr. Roberto Cabral ALT [Catalytic activity/Vol] 15 U/L Critically low 16-63 [facility] Comment on above: Performed By: #### T SH, LIVER, LIPID, BMP, T7 #### [facility] [address] [place] [address] Dr. Roberto Cabral Anion gap [Moles/Vol] 15.2 mmol/L Normal [facility] Comment on above: Performed By: #### T SH, LIVER, LIPID, BMP, T7 #### [facility] [address] [place] [address] Dr. Roberto Cabral AST [Catalytic activity/Vol] 15 U/L Normal 15-37 [facility] Comment on above: Performed By: #### T SH, LIVER, LIPID, BMP, T7 #### [facility] [address] [place] [address] Dr. Roberto Cabral Bilirubin [Mass/Vol] 0.2 mg/dL Normal 0.2-1.0 [facility] Comment on above: Performed By: #### T SH, LIVER, LIPID, BMP, T7 #### [facility] [address] [address] [address] Roberto Cabral Calcium [Mass/Vol] 8.4 mg/dL Critically low 8.5-10.1 [facility] Comment on above: Performed By: #### T SH, LIVER, LIPID, BMP, T7 #### [facility] [address] [place] [address] Dr. Roberto Cabral Chloride [Moles/Vol] 114 mmol/L Critically high 98-107 [facility] Comment on above: Performed By: #### T SH, LIVER, LIPID, BMP, T7 #### [facility] [address] [place] [address] Dr. Roberto Cabral CO2 [Moles/Vol] 17.2 mmol/L Critically low 21.0-32.0 [facility] Comment on above: Performed By: #### T SH, LIVER, LIPID, BMP, T7 #### [facility] [address] [place] [address] Dr. Roberto Cabral Creatinine [Mass/Vol] 1.84 mg/dL Critically high 0.70-1.30 [facility] Comment on above: Performed By: #### T SH, LIVER, LIPID, BMP, T7 #### [facility] [address] [place] [address] Dr. Roberto Cabral EGFR-AF MALTESE 44 mL/min/1.73m2 Critically low >=60 [facility] Comment on above: Performed By: #### T SH, LIVER, LIPID, BMP, T7 #### [facility] [address] [place] [address] Dr. Roberto Cabral EGFR-NON AF MALTESE 36 mL/min/1.73m2 Critically low >=60 [facility] Comment on above: Performed By: #### T SH, LIVER, LIPID, BMP, T7 #### [facility] [address] [place] [address] Dr. Roberto Cabral Globulin (S) [Mass/Vol] 2.9 g/dL Normal [facility] Comment on above: Performed By: #### T SH, LIVER, LIPID, BMP, T7 #### [facility] [address] [address] [address] Roberto Cabral Glucose [Mass/Vol] 120 mg/dL Critically high 74-106 [facility] Comment on above: Performed By: #### T SH, LIVER, LIPID, BMP, T7 #### [facility] [address] [address] [address] Roberto Cabral Potassium [Moles/Vol] 5.4 mmol/L Critically high 3.5-5.1 [facility] Comment on above: Performed By: #### T SH, LIVER, LIPID, BMP, T7 #### [facility] [address] [address] [address] Roberto Cabral Protein [Mass/Vol] 5.7 g/dL Critically low 6.4-8.2 [facility] Comment on above: Performed By: #### T SH, LIVER, LIPID, BMP, T7 #### [facility] [address] [place] [address] Dr. Roberto Cabral Sodium [Moles/Vol] 141 mmol/L Normal 136-145 [facility] Comment on above: Performed By: #### T SH, LIVER, LIPID, BMP, T7 #### [facility] [address] [place] [address] Dr. Roberto Cabral Urea nitrogen [Mass/Vol] 56.0 mg/dL Critically high 7.0-18.0 [facility] Comment on above: Performed By: #### T SH, LIVER, LIPID, BMP, T7 #### [facility] [address] [place] [address] Dr. Roberto Cabral Urea nitrogen/Creatinine [Mass ratio] 30.4 mg/mg Normal [facility] Comment on above: Performed By: #### T SH, LIVER, LIPID, BMP, T7 #### [facility] [address] [place] [address] Dr. Roberto Cabral PROF CHEM 8 (BAS METB)on Anion gap [Moles/Vol] 13.3 mmol/L Normal [facility] Comment on above: Performed By: #### T SH, LIVER, LIPID, BMP, T7 #### [facility] [address] [place] [address] Dr. Roberto Cabral Calcium [Mass/Vol] 8.3 mg/dL Critically low 8.5-10.1 [facility] Comment on above: Performed By: #### T SH, LIVER, LIPID, BMP, T7 #### [facility] [address] [address] [address] Roberto Cabral Chloride [Moles/Vol] 113 mmol/L Critically high 98-107 [facility] Comment on above: Performed By: #### T SH, LIVER, LIPID, BMP, T7 #### [facility] [address] [place] [address] Dr. Roberto Cabral CO2 [Moles/Vol] 19.4 mmol/L Critically low 21.0-32.0 [facility] Comment on above: Performed By: #### T SH, LIVER, LIPID, BMP, T7 #### [facility] [address] [place] [address] Dr. Roberto Cabral Creatinine [Mass/Vol] 1.49 mg/dL Critically high 0.70-1.30 [facility] Comment on above: Performed By: #### T SH, LIVER, LIPID, BMP, T7 #### [facility] [address] [place] [address] Dr. Roberto Cabral EGFR-AF MALTESE 56 mL/min/1.73m2 Critically low >=60 [facility] Comment on above: Performed By: #### T SH, LIVER, LIPID, BMP, T7 #### [facility] [address] [place] [address] Dr. Roberto Cabral EGFR-NON AF MALTESE 46 mL/min/1.73m2 Critically low >=60 [facility] Comment on above: Performed By: #### T SH, LIVER, LIPID, BMP, T7 #### [facility] [address] [place] [address] Dr. Roberto Cabral Glucose [Mass/Vol] 142 mg/dL Critically high 74-106 [facility] Comment on above: Performed By: #### T SH, LIVER, LIPID, BMP, T7 #### [facility] [address] [place], [place] [id number] Dr. Roberto Cabral Potassium [Moles/Vol] 5.7 mmol/L Critically high 3.5-5.1 [facility] Comment on above: Performed By: #### T SH, LIVER, LIPID, BMP, T7 #### [facility] [address] [place] [address] Dr. Roberto Cabral Sodium [Moles/Vol] 140 mmol/L Normal 136-145 [facility] Comment on above: Performed By: #### T SH, LIVER, LIPID, BMP, T7 #### [facility] [address] [place] [address] Dr. Roberto Cabral Urea nitrogen [Mass/Vol] 46.0 mg/dL Critically high 7.0-18.0 [facility] Comment on above: Performed By: #### T SH, LIVER, LIPID, BMP, T7 #### [facility] [address] [place] [address] Dr. Roberto Cabral Urea nitrogen/Creatinine [Mass ratio] 30.9 mg/mg Normal [facility] Comment on above: Performed By: #### T SH, LIVER, LIPID, BMP, T7 #### [facility] [address] [place] [address] Dr. Roberto Cabral BNPon 12-10-2021 Natriuretic peptide B (Bld) [Mass/Vol] 167.0 pg/mL Normal <=1,800.0 [facility] Comment on above: Performed By: #### T SH, LIVER, LIPID, BMP, T7 #### [facility] [address] [place] [address] Dr. Roberto Cabral CBC AUTO DIFFon 12-10-2021 BASO # 0.1 103/ul Normal 0.0-0.1 [facility] Comment on above: Performed By: #### T SH, LIVER, LIPID, BMP, T7 #### [facility] [address] [place] [address] Dr. Roberto Cabral Basophils/100 WBC (Bld) 0.3 % Normal 0.2-2.0 [facility] Comment on above: Performed By: #### T SH, LIVER, LIPID, BMP, T7 #### [facility] [address] [place] [address] Dr. Roberto Cabral EO # 0.4 103/ul Normal 0.0-0.7 [facility] Comment on above: Performed By: #### T SH, LIVER, LIPID, BMP, T7 #### [facility] [address] [place] [address] Dr. Roberto Cabral Eosinophils/100 WBC (Bld) 2.6 % Normal 0.9-7.0 [facility] Comment on above: Performed By: #### T SH, LIVER, LIPID, BMP, T7 #### [facility] [address] [place] [address] Dr. Robreto Cabral Erythrocyte distribution width (RBC) [Ratio] 15.7 % Critically high 11.0-15.0 [facility] Comment on above: Performed By: #### T SH, LIVER, LIPID, BMP, T7 #### [facility] [address] [place] [address] Dr. Roberto Cabral Hematocrit (Bld) [Volume fraction] 36.1 % Critically low 42.0-54.0 [facility] Comment on above: Performed By: #### T SH, LIVER, LIPID, BMP, T7 #### [facility] [address] [place] [address] Dr. Roberto Cabral Hemoglobin (Bld) [Mass/Vol] 11.5 g/dL Critically low 14.0-18.0 [facility] Comment on above: Performed By: #### T SH, LIVER, LIPID, BMP, T7 #### [facility] [address] [place] [address] Dr. Roberto Cabral IG # 0.07 10e3/ul Critically high 0.00-0.03 [facility] Comment on above: Performed By: #### T SH, LIVER, LIPID, BMP, T7 #### [facility] [address] [place] [address] Dr. Roberto Cabral IG % 0.4 % Normal 0.0-0.5 [facility] Comment on above: Performed By: #### T SH, LIVER, LIPID, BMP, T7 #### [facility] [address] [place] [address] Dr. Roberto Cabral LYMPH # 1.4 103/ul Normal 1.2-3.8 [facility] Comment on above: Performed By: #### T SH, LIVER, LIPID, BMP, T7 #### [facility] [address] [place] [address] Dr. Roberto Cabral Lymphocytes/100 WBC (Bld) 9.0 % Critically low 20.5-60.0 [facility] Comment on above: Performed By: #### T SH, LIVER, LIPID, BMP, T7 #### [facility] [address] [place] [address] Dr. Roberto Cabral MANUAL DIFF REQ NO Normal [facility] Comment on above: Performed By: #### T SH, LIVER, LIPID, BMP, T7 #### [facility] [address] [place] [address] Dr. Roberto Cabral MCH (RBC) [Entitic mass] 28.1 pg Normal 25.9-34.0 [facility] Comment on above: Performed By: #### T SH, LIVER, LIPID, BMP, T7 #### [facility] [address] [place] [address] Dr. Roberto Cabral MCHC (RBC) [Mass/Vol] 31.9 g/dL Normal 29.9-35.2 [facility] Comment on above: Performed By: #### T SH, LIVER, LIPID, BMP, T7 #### [facility] [address] [place] [address] Dr. Roberto Cabral MCV (RBC) [Entitic vol] 88.3 fL Normal 80.0-94.0 [facility] Comment on above: Performed By: #### T SH, LIVER, LIPID, BMP, T7 #### [facility] [address] [place] [address] Dr. Roberto Cabral MONO # 1.4 103/ul Critically high 0.3-0.8 [facility] Comment on above: Performed By: #### T SH, LIVER, LIPID, BMP, T7 #### [facility] [address] [place] [address] Dr. Roberto Cabral Monocytes/100 WBC (Bld) 8.8 % Normal 1.7-12.0 [facility] Comment on above: Performed By: #### T SH, LIVER, LIPID, BMP, T7 #### [facility] [address] [address] [address] Roberto Cabral NEUT # 12.3 103/ul Critically high 1.4-6.5 [facility] Comment on above: Performed By: #### T SH, LIVER, LIPID, BMP, T7 #### [facility] [address] [address] [address] Roberto Cabral Neutrophils/100 WBC (Bld) 78.9 % Critically high 43.0-75.0 [facility] Comment on above: Performed By: #### T SH, LIVER, LIPID, BMP, T7 #### [facility] [address] [address] [address] Roberto Cabral Platelet mean volume (Bld) [Entitic vol] 10.5 fL Normal 9.5-13.5 [facility] Comment on above: Performed By: #### T SH, LIVER, LIPID, BMP, T7 #### [facility] [address] [address] [address] Roberto Cabral PLT 316 103/ul Normal 150-450 [facility] Comment on above: Performed By: #### T SH, LIVER, LIPID, BMP, T7 #### [facility] [address] [address] [address] Roberto Cabral RBC 4.09 106/ul Critically low 4.70-6.10 [facility] Comment on above: Performed By: #### T SH, LIVER, LIPID, BMP, T7 #### [facility] [address] [address] [address] Roberto Cabral WBC 15.6 103/ul Critically high 4.0-11.0 [facility] Comment on above: Performed By: #### T SH, LIVER, LIPID, BMP, T7 #### [facility] [address] [address] [address] Roberto Cabral CULTURE URINEon 12-10-2021 CULTURE URINE Culture Observations : No growth Normal [facility] Comment on above: Performed By: #### T SH, LIVER, LIPID, BMP, T7 #### [facility] [address] [place] [address] Dr. Roberto Cabral ER URINE PROFILEon 2 Bilirubin Ql (U) Negative Normal NEGATIVE [facility] Comment on above: Performed By: #### E RUR #### [facility] [address] [place] [address] Dr. Roberto Cabral Clarity (U) CLEAR Normal CLEAR [facility] Comment on above: Performed By: #### E RUR #### [facility] [address] [place] [address] Dr. Roberto Cabral Color (U) LT. YELLOW Normal YELLOW [facility] Comment on above: Performed By: #### E RUR #### [facility] [address] [place] [address] Dr. Roberto MORALESAHKera A micrscopic examination will be performed if indicated. Normal [facility] Comment on above: Performed By: #### E RUR #### [facility] [address] [place] [address] Dr. Roberto Cabral Glucose Ql (U) Negative Normal NEGATIVE [facility] Comment on above: Performed By: #### E RUR #### [facility] [address] [place] [address] Dr. Roberto Cabral Hemoglobin Ql (U) Negative Normal NEGATIVE [facility] Comment on above: Performed By: #### E RUR #### [facility] [address] [place] [address] Dr. Roberto Cabral Ketones Ql (U) Negative Normal NEGATIVE [facility] Comment on above: Performed By: #### E RUR #### [facility] [address] [place] [address] Dr. Roberto Cabral LEUKOCYTES Negative Normal NEGATIVE [facility] Comment on above: Performed By: #### E RUR #### [facility] [address] [place] [address] Dr. Roberto Cabral Nitrite Ql (U) Negative Normal NEGATIVE [facility] Comment on above: Performed By: #### E RUR #### [facility] [address] [place] [address] Dr. Roberto Cabral pH (U) 5.0 [pH] Normal 5-9 [facility] Comment on above: Performed By: #### E RUR #### [facility] [address] [place] [address] Dr. Roberto Cabral SPEC GRAVITY 1.015 Normal 1.005-<=1.025 [facility] Comment on above: Performed By: #### E RUR #### [facility] [address] [place] [address] Dr. Roberto Cabral UA PROTEIN Negative Normal NEGATIVE/ TRACE [facility] Comment on above: Performed By: #### E RUR #### [facility] [address] [place] [address] Dr. Roberto Cabral UR MICRO IND NOT INDICATED Normal [facility] Comment on above: Performed By: #### E RUR #### [facility] [address] [place] [address] Dr. Roberto Cabral Urobilinogen Qn (U) 0.2 {Noman'U}/dL Normal 0.2 - 1. 0 [facility] Comment on above: Performed By: #### E RUR #### [facility] [address] [place] [address] Dr. Roberto Cabral GI PANEL (PCR)on 12-10-2021 Adenovirus F 40/41 Not detected Normal NOT DETECTED [facility] Comment on above: Performed By: #### T SH, LIVER, LIPID, BMP, T7 #### [facility] [address] [place] [address] Dr. Roberto Cabral Astrovirus Not detected Normal NOT DETECTED [facility] Comment on above: Performed By: #### T SH, LIVER, LIPID, BMP, T7 #### [facility] [address] [place] [address] Dr. Roberto Cabral C. Diff toxin A/B Not detected Normal NOT DETECTED [facility] Comment on above: Performed By: #### T SH, LIVER, LIPID, BMP, T7 #### [facility] [address] [address] [address] Roberto Cabral Campylobacter Not detected Normal NOT DETECTED The [facility] Comment on above: Performed By: #### T SH, LIVER, LIPID, BMP, T7 #### [facility] [address] [address] [address] Roberto Cabral Cryptosporidium Not detected Normal NOT DETECTED The [facility] Comment on above: Performed By: #### T SH, LIVER, LIPID, BMP, T7 #### [facility] [address] [address] [address] Roberto Cabral Cyclos. Cayetanensis Not detected Normal NOT DETECTED [facility] Comment on above: Performed By: #### T SH, LIVER, LIPID, BMP, T7 #### [facility] [address] [address] [address] Roberto Cabral E. Coli O157 Not Applicable Normal Not Applicable [facility] Comment on above: Performed By: #### T SH, LIVER, LIPID, BMP, T7 #### [facility] [address] [address] [address] Roberto Cabral E. histolytica Not detected Normal NOT DETECTED [facility] Comment on above: Performed By: #### T SH, LIVER, LIPID, BMP, T7 #### [facility] [address] [address] [address] Roberto Cabral EAEC Not detected Normal NOT DETECTED [facility] Comment on above: Performed By: #### T SH, LIVER, LIPID, BMP, T7 #### [facility] [address] [address] [address] Roberto Cabral EIEC Not detected Normal NOT DETECTED [facility] Comment on above: Performed By: #### T SH, LIVER, LIPID, BMP, T7 #### [facility] [address] [address] [address] Roberto Cabral EPEC Not detected Normal NOT DETECTED [facility] Comment on above: Performed By: #### T SH, LIVER, LIPID, BMP, T7 #### [facility] [address] [address] [address] Roberto Cabral ETEC Not detected Normal NOT DETECTED [facility] Comment on above: Performed By: #### T SH, LIVER, LIPID, BMP, T7 #### [facility] [address] [address] [address] Roberto Anderson Not detected Normal NOT DETECTED [facility] Comment on above: Performed By: #### T SH, LIVER, LIPID, BMP, T7 #### [facility] [address] [address] [address] Roberto CARDENAS CONTROLS PASSED Normal [facility] Comment on above: Performed By: #### T SH, LIVER, LIPID, BMP, T7 #### [facility] [address] [address] [address] Roberto GILL HEADER GI PANEL BACTERIA Normal [facility] Comment on above: Performed By: #### T SH, LIVER, LIPID, BMP, T7 #### [facility] [address] [address] [address] Roberto IVEY ECOLI GI PANEL DIARRHEAGENIC E.COLI / SHIGELLA Normal [facility] Comment on above: Performed By: #### T SH, LIVER, LIPID, BMP, T7 #### [facility] [address] [place] [address] Dr. Roberto IVEY INFO SEE BELOW [facility] Comment on above: Result Comment: EAEC - Enteroaggregative E. Coli EPEC- Enteropathogenic E. Coli ETEC- Enterotoxigenic E. Coli lt/st STEC- Shigella-like toxin-producing E. Coli stx1/stx2 EIEC- Shigella/Enteroinvasive E. Coli Performed By: #### T SH, LIVER, LIPID, BMP, T7 #### [facility] [address] [address] [address] Roberto IVEY PARASITES GI PANEL PARASITES Normal [facility] Comment on above: Performed By: #### T SH, LIVER, LIPID, BMP, T7 #### [facility] [address] [address] [address] Roberto IVEY VIRUS GI PANEL VIRUSES Normal [facility] Comment on above: Performed By: #### T SH, LIVER, LIPID, BMP, T7 #### [facility] [address] [address] [address] Roberto Cabral Norovirus GI/GII Not detected Normal NOT DETECTED [facility] Comment on above: Performed By: #### T SH, LIVER, LIPID, BMP, T7 #### [facility] [address] [address] [address] Roberto Cabral P. Shigelloides Not detected Normal NOT DETECTED [facility] Comment on above: Performed By: #### T SH, LIVER, LIPID, BMP, T7 #### [facility] [address] [address] [address] Roberto Cabral Rotavirus A Not detected Normal NOT DETECTED [facility] Comment on above: Performed By: #### T SH, LIVER, LIPID, BMP, T7 #### [facility] [address] [address] [address] Roberto Cabral Salmonella Not detected Normal NOT DETECTED [facility] Comment on above: Performed By: #### T SH, LIVER, LIPID, BMP, T7 #### [facility] [address] [address] [address] Roberto Cabral Sapovirus Detected Abnormal NOT DETECTED [facility] Comment on above: Performed By: #### T SH, LIVER, LIPID, BMP, T7 #### [facility] [address] [address] [address] Roberto Cabral STEC Not detected Normal NOT DETECTED [facility] Comment on above: Performed By: #### T SH, LIVER, LIPID, BMP, T7 #### [facility] [address] [address] [address] Roberto Cabral Vibrio Not detected Normal NOT DETECTED [facility] Comment on above: Performed By: #### T SH, LIVER, LIPID, BMP, T7 #### [facility] [address] [address] [address] Roberto Cabral Vibrio Cholera Not detected Normal NOT DETECTED [facility] Comment on above: Performed By: #### T SH, LIVER, LIPID, BMP, T7 #### [facility] [address] [address] [address] Roberto Cabral Y. Enterocolitica Not detected Normal NOT DETECTED [facility] Comment on above: Performed By: #### T SH, LIVER, LIPID, BMP, T7 #### [facility] [address] [address] [address] Roberto Cabral POINT OF CARE GLUCOSEon 12-01 Glucose [Mass/Vol] 73 mg/dL Critically low 74-106 [facility] Comment on above: Performed By: #### P OCGLUC #### [facility] [address] [address] [address] Roberto Cabral Glucose [Mass/Vol] 69 mg/dL Critically low 74-106 [facility] Comment on above: Performed By: #### T SH, LIVER, LIPID, BMP, T7 #### [facility] [address] [address] [address] Roberto Cabral Glucose [Mass/Vol] 99 mg/dL Normal 74-106 [facility] Comment on above: Performed By: #### P OCGLUC #### [facility] [address] [address] [address] Roberto Cabral Glucose [Mass/Vol] 67 mg/dL Critically low 74-106 [facility] Comment on above: Performed By: #### T SH, LIVER, LIPID, BMP, T7 #### [facility] [address] [address] [address] Roberto Cabral Glucose [Mass/Vol] 74 mg/dL Normal 74-106 [facility] Comment on above: Performed By: #### P OCGLUC #### [facility] [address] [address] [address] Roberto Cabral Glucose [Mass/Vol] 55 mg/dL Critically low 74-106 [facility] Comment on above: Performed By: #### T SH, LIVER, LIPID, BMP, T7 #### [facility] [address] [address] [address] Roberto Cabral PROF 14(COMP METB)on 022 Albumin [Mass/Vol] 3.1 g/dL Critically low 3.4-5.0 [facility] Comment on above: Performed By: #### T SH, LIVER, LIPID, BMP, T7 #### [facility] [address] [place] [address] Dr. Roberto Cabral Albumin/Globulin [Mass ratio] 0.9 {ratio} Normal [facility] Comment on above: Performed By: #### T SH, LIVER, LIPID, BMP, T7 #### [facility] [address] [place] [address] Dr. Roberto Cabral ALP [Catalytic activity/Vol] 73 U/L Normal 46-116 [facility] Comment on above: Performed By: #### T SH, LIVER, LIPID, BMP, T7 #### [facility] [address] [place] [address] Dr. Roberto Cabral ALT [Catalytic activity/Vol] 17 U/L Normal 16-63 [facility] Comment on above: Performed By: #### T SH, LIVER, LIPID, BMP, T7 #### [facility] [address] [place] [address] Dr. Roberto Cabral Anion gap [Moles/Vol] 17.7 mmol/L Normal [facility] Comment on above: Performed By: #### T SH, LIVER, LIPID, BMP, T7 #### [facility] [address] [place] [address] Dr. Roberto Cabral AST [Catalytic activity/Vol] 13 U/L Critically low 15-37 [facility] Comment on above: Performed By: #### T SH, LIVER, LIPID, BMP, T7 #### [facility] [address] [place] [address] Dr. Roberto Cabral Bilirubin [Mass/Vol] 0.2 mg/dL Normal 0.2-1.0 [facility] Comment on above: Performed By: #### T SH, LIVER, LIPID, BMP, T7 #### [facility] [address] [place] [address] Dr. Roberto Cabral Calcium [Mass/Vol] 8.7 mg/dL Normal 8.5-10.1 [facility] Comment on above: Performed By: #### T SH, LIVER, LIPID, BMP, T7 #### [facility] [address] [address] [address] Roberto Cabral Chloride [Moles/Vol] 110 mmol/L Critically high 98-107 [facility] Comment on above: Performed By: #### T SH, LIVER, LIPID, BMP, T7 #### [facility] [address] [place] [address] Dr. Roberto Cabral CO2 [Moles/Vol] 16.0 mmol/L Critically low 21.0-32.0 [facility] Comment on above: Performed By: #### T SH, LIVER, LIPID, BMP, T7 #### [facility] [address] [place] [address] Dr. Roberto Cabral Creatinine [Mass/Vol] 1.85 mg/dL Critically high 0.70-1.30 [facility] Comment on above: Performed By: #### T SH, LIVER, LIPID, BMP, T7 #### [facility] [address] [place] [address] Dr. Roebrto Cabral EGFR-AF MALTESE 43 mL/min/1.73m2 Critically low >=60 [facility] Comment on above: Performed By: #### T SH, LIVER, LIPID, BMP, T7 #### [facility] [address] [place] [address] Dr. Roberto Cabral EGFR-NON AF MALTESE 36 mL/min/1.73m2 Critically low >=60 [facility] Comment on above: Performed By: #### T SH, LIVER, LIPID, BMP, T7 #### [facility] [address] [place] [address] Dr. Roberto Cabral Globulin (S) [Mass/Vol] 3.4 g/dL Normal [facility] Comment on above: Performed By: #### T SH, LIVER, LIPID, BMP, T7 #### [facility] [address] [place] [address] Dr. Roberto Cabral Glucose [Mass/Vol] 113 mg/dL Critically high 74-106 [facility] Comment on above: Performed By: #### T SH, LIVER, LIPID, BMP, T7 #### [facility] [address] [place] [address] Dr. Roberto Cabral Potassium [Moles/Vol] 4.7 mmol/L Normal 3.5-5.1 [facility] Comment on above: Performed By: #### T SH, LIVER, LIPID, BMP, T7 #### [facility] [address] [place] [address] Dr. Roberto Cabral Protein [Mass/Vol] 6.5 g/dL Normal 6.4-8.2 [facility] Comment on above: Performed By: #### T SH, LIVER, LIPID, BMP, T7 #### [facility] [address] [place] [address] Dr. Roberto Cabral Sodium [Moles/Vol] 139 mmol/L Normal 136-145 [facility] Comment on above: Performed By: #### T SH, LIVER, LIPID, BMP, T7 #### [facility] [address] [place] [address] Dr. Roberto Cabral Urea nitrogen [Mass/Vol] 66.0 mg/dL Critically high 7.0-18.0 [facility] Comment on above: Performed By: #### T SH, LIVER, LIPID, BMP, T7 #### [facility] [address] [place] [address] Dr. Roberto Cabral Urea nitrogen/Creatinine [Mass ratio] 35.7 mg/mg Normal [facility] Comment on above: Performed By: #### T SH, LIVER, LIPID, BMP, T7 #### [facility] [address] [place] [address] Dr. Roberto Cabral CBC AUTO DIFFon 12-09-2021 BASO # 0.0 103/ul Normal 0.0-0.1 [facility] Comment on above: Performed By: #### T SH, LIVER, LIPID, BMP, T7 #### [facility] [address] [place] [address] Dr. Roberto Cabral Basophils/100 WBC (Bld) 0.2 % Normal 0.2-2.0 [facility] Comment on above: Performed By: #### T SH, LIVER, LIPID, BMP, T7 #### [facility] [address] [place] [address] Dr. Roberto Cabral EO # 0.3 103/ul Normal 0.0-0.7 [facility] Comment on above: Performed By: #### T SH, LIVER, LIPID, BMP, T7 #### [facility] [address] [place] [address] Dr. Roberto Cabral Eosinophils/100 WBC (Bld) 1.7 % Normal 0.9-7.0 [facility] Comment on above: Performed By: #### T SH, LIVER, LIPID, BMP, T7 #### [facility] [address] [place] [address] Dr. Roberto Cabral Erythrocyte distribution width (RBC) [Ratio] 15.4 % Critically high 11.0-15.0 [facility] Comment on above: Performed By: #### T SH, LIVER, LIPID, BMP, T7 #### [facility] [address] [place] [address] Dr. Roberto Cabral Hematocrit (Bld) [Volume fraction] 40.2 % Critically low 42.0-54.0 [facility] Comment on above: Performed By: #### T SH, LIVER, LIPID, BMP, T7 #### [facility] [address] [place] [address] Dr. Roberto Cabral Hemoglobin (Bld) [Mass/Vol] 12.6 g/dL Critically low 14.0-18.0 [facility] Comment on above: Performed By: #### T SH, LIVER, LIPID, BMP, T7 #### [facility] [address] [place] [address] Dr. Roberto Cabral IG # 0.09 10e3/ul Critically high 0.00-0.03 [facility] Comment on above: Performed By: #### T SH, LIVER, LIPID, BMP, T7 #### [facility] [address] [place] [address] Dr. Roberto Cabral IG % 0.5 % Normal 0.0-0.5 [facility] Comment on above: Performed By: #### T SH, LIVER, LIPID, BMP, T7 #### [facility] [address] [place] [address] Dr. Roberto Cabral LYMPH # 1.5 103/ul Normal 1.2-3.8 [facility] Comment on above: Performed By: #### T SH, LIVER, LIPID, BMP, T7 #### [facility] [address] [place] [address] Dr. Roberto Cabral Lymphocytes/100 WBC (Bld) 8.0 % Critically low 20.5-60.0 [facility] Comment on above: Performed By: #### T SH, LIVER, LIPID, BMP, T7 #### [facility] [address] [address] [address] Roberto Cabral MANUAL DIFF REQ NO Normal [facility] Comment on above: Performed By: #### T SH, LIVER, LIPID, BMP, T7 #### [facility] [address] [place] [address] Dr. Roberto Cabral MCH (RBC) [Entitic mass] 28.0 pg Normal 25.9-34.0 [facility] Comment on above: Performed By: #### T SH, LIVER, LIPID, BMP, T7 #### [facility] [address] [place] [address] Dr. Roberto Cabral MCHC (RBC) [Mass/Vol] 31.3 g/dL Normal 29.9-35.2 [facility] Comment on above: Performed By: #### T SH, LIVER, LIPID, BMP, T7 #### [facility] [address] [address] [address] Roberto Cabral MCV (RBC) [Entitic vol] 89.3 fL Normal 80.0-94.0 [facility] Comment on above: Performed By: #### T SH, LIVER, LIPID, BMP, T7 #### [facility] [address] [address] [address] Roberto Cabral MONO # 1.5 103/ul Critically high 0.3-0.8 [facility] Comment on above: Performed By: #### T SH, LIVER, LIPID, BMP, T7 #### [facility] [address] [place] [address] Dr. Roberto Cabral Monocytes/100 WBC (Bld) 8.2 % Normal 1.7-12.0 [facility] Comment on above: Performed By: #### T SH, LIVER, LIPID, BMP, T7 #### [facility] [address] [address] [address] Roberto Cabral NEUT # 14.9 103/ul Critically high 1.4-6.5 [facility] Comment on above: Performed By: #### T SH, LIVER, LIPID, BMP, T7 #### [facility] [address] [address] [address] Roberto Cabral Neutrophils/100 WBC (Bld) 81.4 % Critically high 43.0-75.0 [facility] Comment on above: Performed By: #### T SH, LIVER, LIPID, BMP, T7 #### [facility] [address] [place] [address] Dr. Roberto Cabral Platelet mean volume (Bld) [Entitic vol] 10.0 fL Normal 9.5-13.5 [facility] Comment on above: Performed By: #### T SH, LIVER, LIPID, BMP, T7 #### [facility] [address] [place] [address] Dr. Roberto Cabral PLT 358 103/ul Normal 150-450 [facility] Comment on above: Performed By: #### T SH, LIVER, LIPID, BMP, T7 #### [facility] [address] [place] [address] Dr. Roberto Cabral RBC 4.50 106/ul Critically low 4.70-6.10 [facility] Comment on above: Performed By: #### T SH, LIVER, LIPID, BMP, T7 #### [facility] [address] [place] [address] Dr. Roberto Cabral WBC 18.3 103/ul Critically high 4.0-11.0 [facility] Comment on above: Performed By: #### T SH, LIVER, LIPID, BMP, T7 #### [facility] [address] [place] [address] ABD/PELVIS WO CONon [...] DEVIN ORTIZ Date: 2021-12-09 20:39 Normal [facility] Covid-19 PCR (CVDTB)on SARS-CoV-2 (COVID-19) RNA JOSÉ+probe Ql (Unsp spec) Not detected Normal NOT DETECTED [facility] Comment on above: Result Comment: When [...] for this test is supported by the [place] of [employer] and Human Service's declaration that [...] T SH, LIVER, LIPID, BMP, T7 #### [facility] [address] [place] [address] Dr. Roberto Cabral LACTATE/LACTIC ACIDon 2021 Lactate [Moles/Vol] 1.1 mmol/L Normal 0.4-1.9 [facility] Comment on above: Performed By: #### T SH, LIVER, LIPID, BMP, T7 #### [facility] [address] [place] [address] Dr. Roberto Cabral LIPASEon 12-09-2021 Lipase [Catalytic activity/Vol] 186.0 U/L Normal 73.0-393.0 [facility] Comment on above: Performed By: #### T SH, LIVER, LIPID, BMP, T7 #### [facility] [address] [place] [address] Dr. Roberto Cabral PROF 14(COMP METB)on 022 Albumin [Mass/Vol] 3.6 g/dL Normal 3.4-5.0 [facility] Comment on above: Performed By: #### T SH, LIVER, LIPID, BMP, T7 #### [facility] [address] [place] [address] Dr. Roberto Cabral Albumin/Globulin [Mass ratio] 1.0 {ratio} Normal [facility] Comment on above: Performed By: #### T SH, LIVER, LIPID, BMP, T7 #### [facility] [address] [place] [address] Dr. Roberto Cabral ALP [Catalytic activity/Vol] 79 U/L Normal 46-116 [facility] Comment on above: Performed By: #### T SH, LIVER, LIPID, BMP, T7 #### [facility] [address] [place] [address] Dr. Roberto Cabral ALT [Catalytic activity/Vol] 19 U/L Normal 16-63 [facility] Comment on above: Performed By: #### T SH, LIVER, LIPID, BMP, T7 #### [facility] [address] [place] [address] Dr. Roberto Cabral Anion gap [Moles/Vol] 20.6 mmol/L Normal [facility] Comment on above: Performed By: #### T SH, LIVER, LIPID, BMP, T7 #### [facility] [address] [place] [address] Dr. Roberto Cabral AST [Catalytic activity/Vol] 19 U/L Normal 15-37 [facility] Comment on above: Performed By: #### T SH, LIVER, LIPID, BMP, T7 #### [facility] [address] [place] [address] Dr. Roberto Cabral Bilirubin [Mass/Vol] 0.3 mg/dL Normal 0.2-1.0 [facility] Comment on above: Performed By: #### T SH, LIVER, LIPID, BMP, T7 #### [facility] [address] [place] [address] Dr. Roberto Cabral Calcium [Mass/Vol] 9.4 mg/dL Normal 8.5-10.1 [facility] Comment on above: Performed By: #### T SH, LIVER, LIPID, BMP, T7 #### [facility] [address] [place] [address] Dr. Roberto Cabral Chloride [Moles/Vol] 107 mmol/L Normal 98-107 [facility] Comment on above: Performed By: #### T SH, LIVER, LIPID, BMP, T7 #### [facility] [address] [address] [address] Roberto Cabral CO2 [Moles/Vol] 14.9 mmol/L Critically low 21.0-32.0 [facility] Comment on above: Performed By: #### T SH, LIVER, LIPID, BMP, T7 #### [facility] [address] [place] [address] Dr. Roberto Cabral Creatinine [Mass/Vol] 2.11 mg/dL Critically high 0.70-1.30 [facility] Comment on above: Performed By: #### T SH, LIVER, LIPID, BMP, T7 #### [facility] [address] [place] [address] Dr. Roberto Cabral EGFR-AF MALTESE 37 mL/min/1.73m2 Critically low >=60 [facility] Comment on above: Performed By: #### T SH, LIVER, LIPID, BMP, T7 #### [facility] [address] [place] [address] Dr. Roberto Cabral EGFR-NON AF MALTESE 31 mL/min/1.73m2 Critically low >=60 [facility] Comment on above: Performed By: #### T SH, LIVER, LIPID, BMP, T7 #### [facility] [address] [place] [address] Dr. Roberto Cabral Globulin (S) [Mass/Vol] 3.5 g/dL Normal [facility] Comment on above: Performed By: #### T SH, LIVER, LIPID, BMP, T7 #### [facility] [address] [place] [address] Dr. Roberto Cabral Glucose [Mass/Vol] 170 mg/dL Critically high 74-106 [facility] Comment on above: Performed By: #### T SH, LIVER, LIPID, BMP, T7 #### [facility] [address] [place] [address] Dr. Roberto Cabral Potassium [Moles/Vol] 5.5 mmol/L Critically high 3.5-5.1 [facility] Comment on above: Performed By: #### T SH, LIVER, LIPID, BMP, T7 #### [facility] [address] [address] [address] Roberto Cabral Protein [Mass/Vol] 7.1 g/dL Normal 6.4-8.2 [facility] Comment on above: Performed By: #### T SH, LIVER, LIPID, BMP, T7 #### [facility] [address] [address] [address] Roberto Cabral Sodium [Moles/Vol] 137 mmol/L Normal 136-145 [facility] Comment on above: Performed By: #### T SH, LIVER, LIPID, BMP, T7 #### [facility] [address] [address] [address] Roberto Cabral Urea nitrogen [Mass/Vol] 70.0 mg/dL Critically high 7.0-18.0 [facility] Comment on above: Performed By: #### T SH, LIVER, LIPID, BMP, T7 #### [facility] [address] [place] [address] Dr[address] Roberto Cabral Urea nitrogen/Creatinine [Mass ratio] 33.2 mg/mg Normal [facility] Comment on above: Performed By: #### T SH, LIVER, LIPID, BMP, T7 #### [facility] [address] [place] [address] Dr. Roberto Cabral PROTIMEon 12-09-2021 INR Coag (PPP) [Relative time] 1.04 {INR} Normal [facility] Comment on above: Performed By: #### T SH, LIVER, LIPID, BMP, T7 #### [facility] [address] [place] [address] [address] Roberto Cabral INR GUIDELINES SEE BELOW Normal [facility] Comment on above: Result Comment: NIKI RED INR: 2.0 - 3.0 CONDITIONS NOT LISTED BELOW 2.5 - 3.5 FOR PROSTHETIC HEART VALVE REPLACEMENT 2.5 - 3.5 RECURRENT THROMBOSIS Performed By: #### T SH, LIVER, LIPID, BMP, T7 #### [facility] [address] [place] [address] Dr. Roberto Cabral PT Coag (PPP) [Time] 11.2 s Normal 9.0-11.6 [facility] Comment on above: Performed By: #### T SH, LIVER, LIPID, BMP, T7 #### [facility] [address] [place], [place] [address] Dr. Roberto Cabral PTTon 12-09-2021 aPTT Coag (Bld) [Time] 33.4 s Normal 22.3-36.2 [facility] Comment on above: Performed By: #### T SH, LIVER, LIPID, BMP, T7 #### [facility] [address] [place] [address] [address] Roberto Cabral TROPONIN, HIGH SENSITIVITYon 12-09-2021 HSTROP 11.4 pg/mL Normal 4.0-76.1 [facility] Comment on above: Result Comment: CUT- OFF POINTS HAVE BEEN ESTABLISHED BASED ON THE FOURTH UNIVERSAL DEFINITIONS OF MYOCARDIAL INFARCTION. THE UPPER REFERENCE LIMIT (URL) OF TROPONIN, DEFINED THE 99TH PERCENTILE OF cTnI DISTRIBUTION IN A REFERENCE POPULATION, HAS BEEN CONFIRMED THE DECISION THRESHOLD FOR [place] DIAGNOSIS. Performed By: #### T SH, LIVER, LIPID, BMP, T7 #### [facility] [address] [address] [address] Roberto Cabral POINT OF CARE GLUCOSEon 10-31 Glucose [Mass/Vol] 115 mg/dL Critically high 74-106 [facility] Comment on above: Performed By: #### T SH, LIVER, LIPID, BMP, T7 #### [facility] [address] [address] [address] Roberto Cabral Vital Signs Date Time Vital Sign Value Performing Clinician Facility 09-22-2023 13:04-0400 Body temperature 97.59 [degF] Chair [employer] Work Phone: [facility] 09-22-2023 13:04-0400 Diastolic blood pressure 71 mm[Hg] [employer] Work Phone: [facility] 09-22-2023 13:04-0400 Heart rate 61 /min [employer] Work Phone: [facility] 09-22-2023 13:04-0400 Respiratory rate 16 /min [employer] Work Phone: [facility] 09-22-2023 13:04-0400 SaO2% (BldA) [Mass fraction] 98 % Chair [employer] Work Phone: [facility] 09-22-2023 13:04-0400 Systolic blood pressure 166 mm[Hg] Chair [place] Work Phone: [facility] 09-15-2023 12:55-0400 Body temperature 98.01 [degF] Chair [place] Work Phone: [facility] 09-15-2023 12:55-0400 Diastolic blood pressure 78 mm[Hg] Chair Syed Work Phone: [facility] 09-15-2023 12:55-0400 Heart rate 65 /min Chair Syed Work Phone: [facility] 09-15-2023 12:55-0400 Respiratory rate 18 /min Chair [place] Work Phone: [facility] 09-15-2023 12:55-0400 SaO2% (BldA) [Mass fraction] 97 % Chair [place] Work Phone: [facility] 09-15-2023 12:55-0400 Systolic blood pressure 156 mm[Hg] Chair [employer] Work Phone: [facility] 09-04-2023 11:14-0500 Diastolic blood pressure 40 mm[Hg] Austin Springer MD Work Phone: [facility] 09-04-2023 11:14-0500 Heart rate 61 /min Austin Springer MD Work Phone: [facility] 09-04-2023 11:14-0500 Systolic blood pressure 159 mm[Hg] Austin Springer MD Work Phone: [facility] 09-04-2023 11:02-0500 Body temperature 97.5 [degF] Austin Springer MD Work Phone: [facility] 09-04-2023 11:02-0500 Body weight 102.3 kg Austin Springer MD Work Phone: [facility] 09-04-2023 11:02-0500 Respiratory rate 18 /min Austin Springer MD Work Phone: [facility] 09-04-2023 11:02-0500 SaO2% (BldA) [Mass fraction] 96 % Austin Springer MD Work Phone: [facility] 08-29-2023 15:01-0500 Blood Pressure Location Gwen NILL [facility] [place] 08-29-2023 15:01-0500 Diastolic blood pressure 60 mm[Hg] Gwen NILL [facility] [place] 08-29-2023 15:01-0500 Heart rate 68 /min Gwen NILL [facility] [place] 08-29-2023 15:01-0500 Respiratory rate 16 /min Gwen NILL [facility] [place] 08-29-2023 15:01-0500 Systolic blood pressure 144 mm[Hg] Gwen NILL [facility] [place] 10-27-2021 14:12-0400 Blood Pressure Location Gwen NILL [facility] [place] 10-27-2021 14:12-0400 Diastolic blood pressure 64 mm[Hg] Gwen NILL [facility] 10-27-2021 14:12-0400 Heart rate 72 /min Gwen NILL [facility] 10-27-2021 14:12-0400 Respiratory rate 16 /min Gwen NILL [facility] [place] 10-27-2021 14:12-0400 Systolic blood pressure 120 mm[Hg] Gwen LORENZO [facility] Encounters Encounter Date Encounter Type Care Provider Facility Start: 09-22-2023 End: 09-22-2023 ambulatory AUSTIN SPRINGER Facility:[facility] Start: 09-22-2023 End: 09-22-2023 ambulatory Chair 11 [employer] Work Phone: Hematology/Oncology Comment on above: Iron deficiency anem ia due to chronic blood loss (Primary Dx) Start: 09-15-2023 Telephone encounter [employer] Work Phone: Hematology/Oncology Comment on above: Benefits Investigati on Start: 09-15-2023 End: 09-15-2023 ambulatory Chair 11 Syed Work Phone: Hematology/Oncology Comment on above: Iron deficiency anem ia due to chronic blood loss (Primary Dx) Start: 09-12-2023 End: 09-12-2023 [facility] Facility[facility] Start: 09-08-2023 Social Work Shaina FISHERW Hematolo gy/Oncology Start: 09-04-2023 End: 09-04-2023 ambulatory [facility] Facility:[facility] Start: 09-04-2023 End: 09-04-2023 ambulatory [facility] Facility:[facility] Start: 09-04-2023 End: 09-04-2023 Office outpatient new 60 minutes Austin Springer MD Work Phone: Hematology/Oncology Comment on above: Iron deficiency anem ia due to chronic blood loss (Primary Dx); Positive occult stool blood test; Morbid obesity (HCC) Start: 08-31-2023 Chart abstracting Austin win MD Work Phone: Hematology/Oncology Start: 08-29-2023 End: 08-30-2023 ambulatory Gwen LORENZO Facility: [place] Start: 08-29-2023 End: 08-29-2023 Patient encounter procedure Gwen LORENZO [facility] [place] Start: 10-14-2022 End: 10-15-[address] ADONAY ZHANG . Facility: Start: 09-01-2022 End: 09-02-[address] ADNOAY ZHANG . Facility:[facility] Start: 02-21-2022 End: 02-21-[address] ADONAY ZAHNG . Facility:[facility] Start: 12-14-2021 End: 12-15-[address] ADONAY ZHANG . Facility:[facility] Start: 12-10-2021 End: 12-11-[address] ADONAY ZHANG . Facility:[facility] Start: 11-17-2021 End: 11-17-[address] GWEN LORENZO . Facility:[facility] Start: 10-27-2021 End: 10-27-2021 Patient encounter procedure Gwen LORENZO [facility] Start: 01-18-2017 End: 01-19-2017 Ambulatory DEFAULT PHYSICIAN [facility] Procedures Date Procedure Procedure Detail Performing Clinician Start: 10-14-[address] ADONAY ZHANG . Comment on above: Performed By: #### TSH, LIVER, LIPID, BM P, T7 #### [facility] [address] [place] [address] Dr. Roberto Cabral Start: 11-17-2021 Colonoscopy Gwen LORENZO Start: 11-17-2021 Esophagogastroduodenoscopy Gwen LORENZO Start: 12-20-2016 Colonoscopy Gwen MATHIASL Cholecystectomy Gwen MATHIASL Plan of Treatment Date Care Activity Detail Author Start: 02-10-2033 Urine microalbumin profile DTaP,Tdap,Td Vaccine (3 - Td or Tdap) [facility] Start: 09-03-2026 Diabetes Screening Diabetes Screenin g [facility] Start: 10-16-2023 End: 09-03-2024 CBC W Auto Differential panel - Blood CBC + DIFF Lab Routine Iron deficiency anemia due to chronic blood loss Positive occult stool blood test Expected: 10/16/2023 (Approximate), Expires: 09/03/2024 [facility] Work Phone: Comment on above: Expected: 10/16/2023 (Approximate), Expires: 09/03/2024 Start: 10-16-2023 End: 09-03-2024 Cobalamin (Vitamin B12) [Mass/volume] in Serum or Plasma VITAMIN B12 BLOOD Lab Routine Iron deficiency anemia due to chronic blood loss Positive occult stool blood test Expected: 10/16/2023 (Approximate), Expires: 09/03/2024 [facility] Work Phone: Comment on above: Expected: 10/16/2023 (Approximate), Expires: 09/03/2024 Start: 10-16-2023 End: 09-03-2024 Comprehensive metabolic 2000 panel - Serum or Plasma COMP METABOLIC PANEL Lab Routine Iron deficiency anemia due to chronic blood loss Positive occult stool blood test Expected: 10/16/2023 (Approximate), Expires: 09/03/2024 [facility] Work Phone: Comment on above: Expected: 10/16/2023 (Approximate), Expires: 09/03/2024 Start: 10-16-2023 End: 09-03-2024 Ferritin [Mass/volume] in Serum or Plasma FERRITIN BLD Lab Routine Iron deficiency anemia due to chronic blood loss Positive occult stool blood test Expected: 10/16/2023 (Approximate), Expires: 09/03/2024 [facility] Work Phone: Comment on above: Expected: 10/16/2023 (Approximate), Expires: 09/03/2024 Start: 10-16-2023 End: 09-03-2024 Folate [Mass/volume] in Serum or Plasma FOLATE SERUM Lab Routine Iron deficiency anemia due to chronic blood loss Positive occult stool blood test Expected: 10/16/2023 (Approximate), Expires: 09/03/2024 [facility] Work Phone: Comment on above: Expected: 10/16/2023 (Approximate), Expires: 09/03/2024 Start: 10-16-2023 End: 09-03-2024 Iron and Iron binding capacity panel - Serum or Plasma IRON + TIBC Lab Routine Iron deficiency anemia due to chronic blood loss Positive occult stool blood test Expected: 10/16/2023 (Approximate), Expires: 09/03/2024 [facility] Work Phone: Comment on above: Expected: 10/16/2023 (Approximate), Expires: 09/03/2024 Start: 09-04-2023 End: 09-03-2024 Cobalamin (Vitamin B12) [Mass/volume] in Serum or Plasma [facility] Work Phone: Comment on above: Expected: 09/04/2023 , Expires: 09/03/2024 Start: 09-04-2023 End: 09-03-2024 Ferritin [Mass/volume] in Serum or Plasma [facility] Work Phone: Comment on above: Expected: 09/04/2023 , Expires: 09/03/2024 Start: 09-04-2023 End: 09-03-2024 Folate [Mass/volume] in Serum or Plasma [facility] Work Phone: Comment on above: Expected: 09/04/2023 , Expires: 09/03/2024 Start: 09-04-2023 End: 12-04-2023 Haptoglobin [Mass/volume] in Serum or Plasma [facility] Work Phone: Comment on above: Expected: 09/04/2023 , Expires: 12/04/2023 Start: 09-04-2023 End: 09-03-2024 Iron and Iron binding capacity panel - Serum or Plasma [facility] Work Phone: Comment on above: Expected: 09/04/2023 , Expires: 09/03/2024 Start: 07-03-2023 Advance Directive Discussion Advance Directive Discussion [facility] Start: 07-03-2023 Depression Assessment Depression Ass essment [facility] Start: 03-03-2023 Influenza vaccination Influenza Vacc ine (#1) [facility] Start: 2010 Pneumococcal Vaccine : 65+ (1 of 1 - PCV) Pneumococcal Vaccine: 65+ (1 of 1 - PCV) [facility] Start: 2005 RSV Vaccine (1 - 1-d ose 60+ series) RSV Vaccine (1 - 1-dose 60+ series) [facility] Start: 1995 Shingrix Vaccine (1 of 2) Shingrix Vaccine (1 of 2) [facility] Start: 1990 Diabetes Screening Diabetes Screenin g [facility] Start: 1964 Urine microalbumin profile DTaP,Tdap,Td Vaccine (1 - Tdap) [facility] Start: 1963 Hepatitis C screening Hepatitis C Sc alexandra [facility] Start: 1945 Covid-19 Vaccine (#1) Covid-19 Vacci ne (#1) [facility] CBC W Auto Different ial panel - Blood CBC + DIFF Lab Routine Iron deficiency anemia due to chronic blood loss Positive occult stool blood test 09/04/2023 12:26 PM [facility] Work Phone: [facility] Immunizations Immunization Date Immunization Notes Care Provider Fa elinor 04-05-2023 influenza (HD-IIV4) vaccine, age 65+ yr, high dose, quadrivalent, PF (FLUZONE HIGH-DOSE) Austin Springer MD Work Phone: [facility] 04-05-2023 influenza virus vacc ine, unspecified formulation Gwen LORENZO [facility] 02-10-2023 tetanus toxoid, redu angy diphtheria toxoid, and acellular pertussis vaccine, adsorbed Austin Springer MD Work Phone: [facility] 07-06-2022 SARS-CoV-2 (COVID-19 ) [id number] Gwen LORENZO [facility] 05-03-2022 influenza nasal, unspecified formulation Austin Springer MD Work Phone: [facility] 04-29-2022 influenza (aIIV4) vaccine, age 65+ yr, quadrivalent, PF (FLUAD QUAD) Austin Springer MD Work Phone: [facility] 06-25-2021 SARS-CoV-2 (COVID-19 ) Ad26 vaccine, recombinant Gwen NILL [facility] 06-21-2021 SARS-CoV-2 (COVID-19 ) mRNA BNT-162b2 vax Gwen NILL [facility] 05-03-2021 unknown vaccine or immune globulin Austin Springer MD Work Phone: [facility] 09-22-2020 SARS-CoV-2 (COVID-19 ) Ad26 vaccine, recombinant Gwen NILL [facility] 08-31-2020 SARS-CoV-2 (COVID-19 ) Ad26 vaccine, recombinant Gwen NILL [facility] 08-05-2020 influenza (HD-IIV4) vaccine, age 65+ yr, high dose, quadrivalent, PF (FLUZONE HIGH-DOSE) Austin Springer MD Work Phone: [facility] 04-02-2019 influenza nasal, unspecified formulation Austin Springer MD Work Phone: [facility] 05-18-2018 influenza, injectabl e, quadrivalent, preservative free Austin Springer MD Work Phone: [facility] 05-18-2018 zoster vaccine recombinant Austin Springer MD Work Phone: [facility] 12-15-2017 pneumococcal conjuga te vaccine, 13 valent Austin Springer MD Work Phone: [facility] 12-15-2017 zoster vaccine recombinant Austin Springer MD Work Phone: [facility] 06-02-2017 influenza nasal, unspecified formulation Austin Springer MD Work Phone: [facility] 04-11-2015 influenza nasal, unspecified formulation Austin Springer MD Work Phone: [facility] 07-16-2014 influenza nasal, unspecified formulation Austin Springer MD Work Phone: [facility] 2013 influenza, seasonal, injectable Austin Springer MD Work Phone: [facility] 2013 pneumococcal polysaccharide vaccine, 23 valent Austin Springer MD Work Phone: [facility] 04-02-2013 influenza nasal, unspecified formulation Austin Springer MD Work Phone: [facility] 04-02-2013 pneumococcal polysaccharide vaccine, 23 valent Austin Springer MD Work Phone: [facility] 07-03-2012 tetanus toxoid, redu angy diphtheria toxoid, and acellular pertussis vaccine, adsorbed Austin Springer MD Work Phone: [facility] 04-11-2007 influenza nasal, unspecified formulation Austin Springer MD Work Phone: [facility] Payers Date Payer Category Payer Unknown 1959 Unknown [id number] 1945 Unknown [id number] [id number] 1945 Unknown [id number] [id number] [id number] 1945 Unknown [id number] [id number] [id number] 1945 Unknown [id number] 2.16.84 [id number] 1945 Unknown [id number] 2.16.84 [id number] 1945 Unknown [id number] 2.16.84 [id number] 1945 Unknown [id number] [id number] Social History Date Type Detail Facility Start: 10-27-2021 End: 09-04-2023 Tobacco smoking status Ex-smoker (finding) [facility] Tobacco smoking status Never [facility] Start: 09-04-2023 Sex Assigned At Male [facility] [place] Tobacco smoking stat [facility] Tobacco smoking consumption unknown [facility] Start: 1945 Sex Assigned At Not on file C [facility] History of tobacco use Current smoker [facility] History of tobacco use Cigarette Smoker C [facility] History of tobacco use Passive smoker [facility] Start: 09-04-2023 Tobacco use and exposure Smokeless tobacco non-user [facility] Start: 09-04-2023 Alcohol intake Ex-drinker (finding) [facility] Start: 09-04-2023 History of Social function [facility] Start: 1945 Sex Assigned At Male C [facility] Start: 09-19-2023 Gender identity Identifies as male gender (finding) [facility] Start: 09-19-2023 Sexual orientation Heterosexual (fin jose antonio) [facility] Functional Status Date Assessment Result Facility 08-29-2023 Functional Status N/A [facility] Clinical Notes 11-17-2021 to 09-15-2023 Telephone Encounter - Yordan Dugan - 09/15/2023 12:46 PM Shaina Randhawa LSW - 09/08/2023 3:49 PM ESTPatient InstructionsAustin Springer MD - 09/04/2023 11:15 AM EST Note Date & Type Note Facility 09-15-2023 Miscellaneous Notes Patient on 1st time treatment report-non oncology regimen (venofer) Patient holds medicare coverage and no FA available for this treatment. documented in this encounter [facility] 09-08-2023 Note HNO ID: [id number] Author: SHAINA COMER LSW Service: ? Author Type: [employer] Type: Progress Notes Filed: 09/08/2023 15:50 Note Text: Patient appears on the [facility] First Time Treatment List for a non-oncology treatment. No psychosocial assessment is indicated. SHANICE Arenas [place] 09-08-2023 History of Presen t illness Narrative Patient appears on the [facility] First Time Treatment List for a non-oncology treatment. No psychosocial assessment is indicated. HSANICE Arenas documented in this encounter [facility] 09-04-2023 Note HNO ID: [id number] Author: AUSTIN SPRINGER MD Service: ? Author Type: Physician Type: Progress Notes Filed: 09/04/2023 19:29 Note Text: NAME: Estephania, Lam HERNANDEZ NO.: [id number] DATE OF SERVICE: September 04, 2023 (Meghann) Referring Provider: Dr. Adonay Zhang ([facility]) Consultation requested by Dr. Zhang for an opinion regarding Mr. Lam Best, and my final recommendations will be communicated back to the requesting physician by way of shared medical record or letter via [place] mail. Additional Clinicians involved in Lam Best's care: DIAGNOSIS: Iron deficiency anemia ASSESSMENT: 78 year old man with heme + stools and iron deficiency anemia. He is intolerant to oral iron therapy. Will need IV iron for replacement and diagnostic endoscopic evaluation. Suspect he has recurring ulcer. PLAN: Labs today, include iron studies Triage call results to daughter Heidi Plan for IV iron when approved Prefer Monday the , if possible RTC in 6 weeks Labs same day, include iron studies HPI: CASE HISTORY: Reverse Chronological Order 08/25/2023 - Stool for occult blood: positive 08/11/2023 - Ferritin: 379, Iron: 14, Folate: 27 08/09/2023 - CBC: 8.4 > 8.0 / 31.1 < 321, MCV: 69.6 Initial Visit, September 04, 2023: Lam Best presents today with his daughter, Heidi, for a Hematology and Oncology evaluation. He is a 78 year old male who has a prior history of diabetes and edema. He does not drink alcohol and is a former smoker. Admitted with Covid and pneumonia in 2020, labs showed anemia. Subsequent colonoscopy + EGD showed ulcers and polyps. Lost a lot of weight during a viral infection in 2020, needed infusions of antibiotics. Labs after were normal. Reports stomach pain, feels like gas, since December 2022. He has felt progressively worse since then. He has shown signs of confusion, light-headedness, and fatigue recently. He tried taking oral iron recently but stopped due to intolerance. He is SOB on short walks, according to Heidi. Endorses pica to ice. Outside iron studies indicate iron deficiency. He will receive IV iron when approved. May need transfusion. He has an EGD scheduled for later this month. Will likely need a colonoscopy. 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 His in December 2022. REVIEW OF SYSTEMS Per HPI and otherwise negative by full review of organ systems. ECOG PERFORMANCE STATUS: 2 PHYSICAL EXAMINATION: Vitals: BP 159/40[recheck BP[ Pulse 61 Temp (Src) 97.5 (Temporal) Resp 18 Wt 225 lb 8.5 oz (102.3kg) SpO2 96% There is no height or weight on file to calculate BSA. Exam limited to gross visualization where appropriate. Gen.: This is an age-appropriate patient in no acute distress. Head: Appears atraumatic with no visible lesions. Eyes: Pupils equally round and reactive to light, extraocular muscles are intact. Neck: Supple. Respiratory: Appears to be respiring comfortably. Neurologic: Nonfocal to gross visualization. Alert and oriented ?3. Psychiatric: No evidence of inappropriate anxiety or depression. Skin: Visible areas of skin without rash, lesions, wounds or petechiae. ALLERGIES: ALLERGIES Not on File MEDICATIONS: ADULT LOW DOSE ASPIRIN ORAL Take by mouth. vitamin B complex (SUPER B COMPLEX ORAL) Take by mouth. POTASSIUM CHLORIDE ORAL Take by mouth. simvastatin (ZOCOR) 20 mg tablet Take 20 mg by mouth daily at bedtime. Clobetasol Propionate 0.05 % gel Apply to affected area. doxazosin (CARDURA) 4 mg tablet Take 4 mg by mouth daily at bedtime. furosemide (LASIX) 40 mg tablet Take 40 mg by mouth two times a day. glimepiride (AMARYL) 4 mg tablet Take 4 mg by mouth daily with breakfast. empagliflozin (JARDIANCE) 10 mg tablet Take by mouth daily with breakfast. linaclotide (LINZESS) 145 mcg capsule Take by mouth daily at 6 am. metFORMIN (GLUCOPHAGE) 500 mg tablet Take 500 mg by mouth daily with breakfast. metoprolol succinate ER (TOPROL XL) 50 mg 24 hr tablet Take 50 mg by mouth once daily. pantoprazole DR (PROTONIX) 40 mg tablet Take 40 mg by mouth once daily. ALPRAZolam (XANAX) 0.25 mg tablet Take 0.25 mg by mouth at bedtime as needed. (Patient not taking: Reported on 09/04/2023) LABORATORY VALUES: WBC (k/uL) Date Value 09/04/2023 9.07 RBC (m/uL) Date Value 09/04/2023 4.86 Hemoglobin (g/dL) Date Value 09/04/2023 9.0 (L) Hematocrit (%) Date Value 09/04/2023 33.9 (L) MCV (fL) Date Value 09/04/2023 69.8 (L) MCH (pg) Jeremi (more content not included)... [place] 09-04-2023 Instructions Ameena Vogt - 09/04/2023 12:05 PM EST Labs today, include iron studies Triage call results to daughter Heidi Plan for IV iron when approved Prefer Monday the , if possible RTC in 6 weeks Labs same day, include iron studies documented in this encounter [facility] 09-04-2023 History of Presen t illness Narrative Images from the original note were not included. NAME: Estephania, Lam HERNANDEZ NO.: [id number] DATE OF SERVICE: September 04, 2023 (Abhyankar) Referring Provider: Dr. Adonay Zhang ([facility]) Consultation requested by Dr. Zhang for an opinion regarding Mr. Lam Best, and my final recommendations will be communicated back to the requesting physician by way of shared medical record or letter via [place] mail. Additional Clinicians involved in Lam Best's care: DIAGNOSIS: Iron deficiency anemia ASSESSMENT: 78 year old man with heme + stools and iron deficiency anemia. He is intolerant to oral iron therapy. Will need IV iron for replacement and diagnostic endoscopic evaluation. Suspect he has recurring ulcer. PLAN: Labs today, include iron studies Triage call results to daughter Heidi Plan for IV iron when approved Prefer Monday the , if possible RTC in 6 weeks Labs same day, include iron studies HPI: CASE HISTORY: Reverse Chronological Order 08/25/2023 - Stool for occult blood: positive 08/11/2023 - Ferritin: 379, Iron: 14, Folate: 27 08/09/2023 - CBC: 8.4 > 8.0 / 31.1 < 321, MCV: 69.6 Initial Visit, September 04, 2023: Lam Best presents today with his daughter, Heidi, for a Hematology and Oncology evaluation. He is a 78 year old male who has a prior history of diabetes and edema. He does not drink alcohol and is a former smoker. Admitted with Covid and pneumonia in 2020, labs showed anemia. Subsequent colonoscopy + EGD showed ulcers and polyps. Lost a lot of weight during a viral infection in 2020, needed infusions of antibiotics. Labs after were normal. Reports stomach pain, feels like gas, since December 2022. He has felt progressively worse since then. He has shown signs of confusion, light-headedness, and fatigue recently. He tried taking oral iron recently but stopped due to intolerance. He is SOB on short walks, according to Heidi. Endorses pica to ice. Outside iron studies indicate iron deficiency. He will receive IV iron when approved. May need transfusion. He has an EGD scheduled for later this month. Will likely need a colonoscopy. 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 His in December 2022. REVIEW OF SYSTEMS Per HPI and otherwise negative by full review of organ systems. ECOG PERFORMANCE STATUS: 2 PHYSICAL EXAMINATION: Vitals: BP 159/40[recheck BP[ Pulse 61 Temp (Src) 97.5 (Temporal) Resp 18 Wt 225 lb 8.5 oz (102.3kg) SpO2 96% There is no height or weight on file to calculate BSA. Exam limited to gross visualization where appropriate. Gen.: This is an age-appropriate patient in no acute distress. Head: Appears atraumatic with no visible lesions. Eyes: Pupils equally round and reactive to light, extraocular muscles are intact. Neck: Supple. Respiratory: Appears to be respiring comfortably. Neurologic: Nonfocal to gross visualization. Alert and oriented 3. Psychiatric: No evidence of inappropriate anxiety or depression. Skin: Visible areas of skin without rash, lesions, wounds or petechiae. ALLERGIES: ALLERGIES Not on File MEDICATIONS: ADULT LOW DOSE ASPIRIN ORAL Take by mouth. vitamin B complex (SUPER B COMPLEX ORAL) Take by mouth. POTASSIUM CHLORIDE ORAL Take by mouth. simvastatin (ZOCOR) 20 mg tablet Take 20 mg by mouth daily at bedtime. Clobetasol Propionate 0.05 % gel Apply to affected area. doxazosin (CARDURA) 4 mg tablet Take 4 mg by mouth daily at bedtime. furosemide (LASIX) 40 mg tablet Take 40 mg by mouth two times a day. glimepiride (AMARYL) 4 mg tablet Take 4 mg by mouth daily with breakfast. empagliflozin (JARDIANCE) 10 mg tablet Take by mouth daily with breakfast. linaclotide (LINZESS) 145 mcg capsule Take by mouth daily at 6 am. metFORMIN (GLUCOPHAGE) 500 mg tablet Take 500 mg by mouth daily with breakfast. metoprolol succinate ER (TOPROL XL) 50 mg 24 hr tablet Take 50 mg by mouth once daily. pantoprazole DR (PROTONIX) 40 mg tablet Take 40 mg by mouth once daily. ALPRAZolam (XANAX) 0.25 mg tablet Take 0.25 mg by mouth at bedtime as needed. (Patient not taking: Reported on 09/04/2023) LABORATORY VALUES: WBC (k/uL) Date Value 09/04/2023 9.07 RBC (m/uL) Date Value 09/04/2023 4.86 Hemoglobin (g/dL) Date Value 09/04/2023 9.0 (L) Hematocrit (%) Date Value 09/04/2023 33.9 (L) MCV (fL) Date Value 09/04/2023 69.8 (L) MCH (pg) Date Value 09/04/2023 18.5 (L) MCHC (g/dL) Date Value 09/04/2023 26.5 (L) RDW-CV (%) Date Value 09/04/2023 20.9 (H) Platelet Count (k/uL) Date Value 09/04/2023 425 (H) MPV (fL) Date Value 09/04/2023 9.3 Glucose (mg/dL) Date Value 09/04/2023 192 (H) BUN (mg/dL) Date Value 09/04/2023 20 Creatinine (mg/dL) Date Value 09/04/2023 0.99 Sodium (mmol/L) Date Value 09/04/2023 140 Potassium (mmol/L) Date Value 09/04/2023 3.9 Chloride (mmol/L) Date Value 09/04/2023 101 CO2 (mmol/L) Date Value 09/04/2023 27 Protein, Total (g/dL) Date Value 09/04/2023 7.3 Albumin (g/dL) Date Value 09/04/2023 4.7 Calcium, Total (mg/dL) Date Value 09/04/2023 9.9 Alkaline Phosphatase (U/L) Date Value 09/04/2023 75 Bilirubin, Total (mg/dL) Date Value 09/04/2023 0.2 AST (U/L) Date Value 09/04/2023 17 ALT (U/L) Date Value 09/04/2023 13 DIAGNOSIS: (D50.0) Iron deficiency anemia due to chronic blood loss (primary encounter diagnosis) Plan: CBC + DIFF, COMP METABOLIC PANEL, IRON + TIBC, FERRITIN BLD, VITAMIN B12 BLOOD, FOLATE SERUM, RETIC COUNT, HAPTOGLOBIN BLD, CBC + DIFF, COMP METABOLIC PANEL, IRON + TIBC, FERRITIN BLD, VITAMIN B12 BLOOD, FOLATE SERUM (R19.5) Positive occult stool blood test Plan: CBC + DIFF, COMP METABOLIC PANEL, IRON + TIBC, FERRITIN BLD, VITAMIN B12 BLOOD, FOLATE SERUM, RETIC COUNT, HAPTOGLOBIN BLD, CBC + DIFF, COMP METABOLIC PANEL, IRON + TIBC, FERRITIN BLD, VITAMIN B12 BLOOD, FOLATE SERUM (E66.01) Morbid obesity (HCC) PAST MEDICAL HISTORY Diagnosis Date Fe deficiency anemia 08/2023 Iron deficiency anemia due to chronic blood loss 09/04/2023 History reviewed. No pertinent surgical history. Social History Tobacco Use Smoking status: Former Types: Cigarettes Passive exposure: Past Smokeless tobacco: Never Substance Use Topics Alcohol use: Not Currently Drug use: Never History reviewed. No pertinent family history. I spent a total of 60 minutes on the date of the service which included preparing to see the patient, [id number] patient care, completing clinical documentation, obtaining and/or reviewing separately obtained history, performing a medically appropriate examination, counseling and educating the patient/family/caregiver, ordering medications, tests, or procedures, independently interpreting results (not separately reported), communicating results to the patient/family/caregiver, and care coordination (not separately reported). Austin Springer MD, CPE Hematology and Oncology Services Provided at: [facility], [place], [place] Scribe Attestation: This note was scribed by Ameena Vogt on September 04, 2023 under the direction and supervision of Dr. Austin Springer. I attest that all of the information documented is correct to the best of my knowledge. Provider Attestation: I, Austin Springer MD, attest that all information documented by the above scribe is correct, and was supervised by me and under my direction. CC: Adonay Zhang [address] [facility] [id number] Adonay Zhang MD [address] [facility] [id number] documented in this encounter [facility] 08-29-2023 Note Chief Complaint consultation for anemia and positive occult stool HPI Staff 78 year old male presents on consultation from Dr. Zhang for anemia and positive occult stool. Labs completed 08/10- transferrin 379, retic 1.13, B12 528, folate 27, iron 14. Multiple CBC's with HGB 8.0-8.7 and HCT 30.9-33. Denies abdominal pain. Denies bowel changes. No rectal pain or bleeding. Denies nausea or vomiting. No unexplained weight loss. Reports epigastric fullness/pressure shortly after eating. EGD and colonoscopy completed 10/2021 with antral gastritis with superficial ulcers and normal colonoscopy. Was prescribed Protonix BID and Carafate. Patient does not believe he took Protonix BID but currently is taking two daily over the past several weeks. Verbalized he took Carafate short term but discontinued this as he did not feel this was improving abdominal pain. History of Present Illness 78 yo male with h/o htn, hyperlipidemia, DMII, PVD, asthma, KELI, GERD, bph, referred for worsening iron deficiency anemia; last hb 8.2; patient feels fatigued; reports postprandial epigastric bloating and pressure, no N/V; no bowel changes, no blood in stools or melena; only abd operation cholecystectomy; last EGD/colonoscopy 10/2021 for anemia, had superficial gastric ulcerations, bx negative for H pylori; was treated with carafate and PPI; normal colon; negative abd/pelvic ct scan at that time as well; patient on baby asa daily, denies NSAID use; patient to see Hematology next week, possible IV iron infusion. no fmhx of GI malignancy or IBD; no tobacco use. Review of Systems PHQ Score Initial Depression Screen Score: 0 SCORE ROS - Provider Constitutional: no fever, no [...] in stool, no change in bowel habits, no abdominal pain, no hepatitis. Genitourinary: no kidney [...] noncontributory. Physical Exam Vitals & Measurements HR: 68(Peripheral) RR: 16 BP: 144/60 HT: 65 in HT: 165.1 cm WT: 103 kg WT: 226.6 lb BMI: 37.79 HEENT: normal conjunctiva, sclera clear, no scleral icterus, EOM intact, PERRLA, oral mucosa moist without lesions. Neck: trachea midline, no mass, symmetric, no thyromegaly or nodules, no adenopathy Respiratory: lungs CTA, respirations non labored. Cardiovascular: regular rate and rhythm, no murmur, no pedal edema or varicosities. Gastrointestinal: obese, soft, non distended, mild tenderness, epigastrium no masses, no palpable hernias, diastasis recti no, no hepatosplenomegaly; normal bs Lymphatic: no cervical adenopathy, no supraclavicular adenopathy. Musculoskeletal: normal gait, digits and nails without infection, nodes, cyanosis, clubbing. Skin: no rashes, no lesions, no ulcers, no subcutaneous nodules, induration. Psychiatric/Neuro: oriented to time, place, person, judgement normal, affect appropriate for age, insight intact, no focal deficits. Tests: labs reviewed, x-rays reviewed, review of old records completed , Discussed surgical options, risks, and possible complications with patient. Assessment/Plan 1. Iron deficiency anemia (D50.9: Iron deficiency anemia, unspecified) plan EGD under anesthesia for further evaluation, informed consent obtained. 2. Multiple gastric erosions (K25.9: Gastric ulcer, unspecified as acute or chronic, without hemorrhage or perforation) see # 1 3. Epigastric pain (R10.13: Epigastric pain) see # 1 4. GERD (gastroesophageal reflux disease) (K21.9: Gastro-esophageal reflux disease without esophagitis) see # 1 5. Bloating (R14.0: Abdominal distension (gaseous)) see # 1 Follow-up No qualifying data available Problem List/Past Medical History Ongoing Allergic rhinitis Anemia Anxiety Asthma Bloating BMI 37.0-37.9, adult BPH (benign prostatic hyperplasia) Chronic prostatitis Dependent edema Diabetes Eczema Epigastric pain Fibromyalgia Gastritis GERD (gastroesophageal reflux disease) History of alcohol abuse History of nephrolithiasis HTN (hypertension) Hypercholesterolemia Hyperlipidemia Hyperme (more content not included)... [facility] Comment on above: Result Comment: Elec tronically Signed By: HUMBERTO CRAWLEY, Gwen Perdomo\jorge\Date and Time Signed: 08/29/23 16:06 EST 11-17-2021 Note OPERATIVE NOTE OPERATION DATE: 11/17/2021 [...] health for screening. CC: Adonay Zhang M.D. [facility] Signed and Approved by: DR GWEN LORENZO . 11/24/2021 10:45:00 [facility] Evaluation + Plan note No data available for this section General Surgery [place] Evaluation note Diagnosis Iron deficiency anemia due to chronic blood loss- Primary Iron deficiency anemia secondary to blood loss (chronic) Positive occult stool blood test Nonspecific abnormal finding in stool contents Morbid obesity (HCC) Morbid obesity documented in this encounter [facility] note* Diagnosis Iron deficiency anemia due to chronic blood loss- Primary Iron deficiency anemia secondary to blood loss (chronic) documented in this encounter [facility] note* Diagnosis Iron deficiency anemia due to chronic blood loss- Primary Iron deficiency anemia secondary to blood loss (chronic) documented in this encounter [facility] Discharge instructions No data available for this section General Surgery [place] Progress note No data available for this section General [facility] [place] Summary Purpose Family History No Family History Records FoundNo Family History Records Found No data available for this section No Family History Records FoundNo Family History Records Found Advance Directives No Advanced Directives Records FoundNo Advanced Directives Records FoundNo Advanced Directives Records FoundNo Advanced Directives Records Found Additional Source Comments (unrecognized sect ion and content) No Status Records FoundNo Status Records FoundNo Status Records FoundNo Status Records Found INFORMATION SOURCE (unrecogn ized section and content) DATE CREATED AUTHOR 12/27/2017 [facility] DATE CREATED AUTHOR AUTHOR'S ORGANIZ ATION 10/20/2022 [facility] DATE CREATED AUTHOR AUTHOR'S ORGANIZ ATION 09/24/2023 [place] DATE CREATED AUTHOR AUTHOR'S ORGANIZ ATION 09/29/2023 [facility] Patient Care team informatio n (unrecognized section and content) 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 Relationship Specialty Start Date End Date Adonay Zhang MD [address] [place] [address] PCP - General Family Medicine 08/24/23 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 Relationship Specialty Start Date End Date Adonay Zhang MD [address] [place] [address] PCP - General Family Medicine 08/24/23 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 Relationship Specialty Start Date End Date Adonay Zhang MD [address] [place] [address] PCP - General Family Medicine 08/24/23 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 Relationship Specialty Start Date End Date Adonay Zhang MD [address] [place] [address] PCP - General Family Medicine 08/24/23 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 Relationship Specialty Start Date End Date Adonay Zhang MD [address] [place] [facility] [address] PCP - General Family Medicine 08/24/23 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 Relationship Specialty Start Date End Date Adonay Zhang MD [address] [place] [address] PCP - General Family Medicine 08/24/23 Source Comments (unrecognize d section and content) In the event this informatio n is protected by the Federal Confidentiality of Alcohol and Drug Abuse Patient Records regulations: The Federal rules restrict any use of the information to criminally investigate or prosecute any alcohol or drug abuse patient.[facility] the event this information is protected by the Federal Confidentiality of Alcohol and Drug Abuse Patient Records regulations: The Federal rules restrict any use of the information to criminally investigate or prosecute any alcohol or drug abuse patient.[facility] the event this information is protected by the Federal Confidentiality of Alcohol and Drug Abuse Patient Records regulations: The Federal rules restrict any use of the information to criminally investigate or prosecute any alcohol or drug abuse patient.[facility] the event this information is protected by the Federal Confidentiality of Alcohol and Drug Abuse Patient Records regulations: The Federal rules restrict any use of the information to criminally investigate or prosecute any alcohol or drug abuse patient.[facility] the event this information is protected by the Federal Confidentiality of Alcohol and Drug Abuse Patient Records regulations: The Federal rules restrict any use of the information to criminally investigate or prosecute any alcohol or drug abuse patient.[facility] the event this information is protected by the Federal Confidentiality of Alcohol and Drug Abuse Patient Records regulations: The Federal rules restrict any use of the information to criminally investigate or prosecute any alcohol or drug abuse patient.[facility] Reason for Visit (unrecogniz ed section and content) Reason Comments Anemia New patient consulta tion Reason Comments Benefits Investigation Specialty Diagnoses / Procedures Referred By Contac t Referred To Contact Diagnoses Iron deficiency anemia due to chronic blood loss Procedures IRON SUCROSE INJECTION PER 1 MG Austin Springer MD [address] [place] [address] [place] [facility] [place] [address] [place] [address] Referral ID Status Reason Start Date Expiration Date Visits Requested Visits Authorized [id number] Authorized Patient Cleared INN/SMCP Payor Auth Obtained 09/12/2023 12/11/2023 3 3 Inactive Administered Medications - up to 3 most recent administrations Administered Medications (un recognized section and content) Medication Order MAR Action Action Date Dose Rate Site iron sucrose 300 mg in NaCl 0.9% 250 mL (VENOFER) 300 mg, INTRAVENOUS, at 166.67 mL/hr, Administer over 90 Minutes, ONCE, 1 dose, On Mon09/15/23 at 1300, Please conduct a 30 minute post dose observation. Refrigerate New Bag/Syringe/Bottle 09/15/2023 1:06 PM EDT 300 mg 166.67 mL/hr Inactive Administered Medications - up to 3 most recent administrations Medication Order MAR Action Action Date Dose Rate Site iron sucrose 300 mg in NaCl 0.9% 250 mL (VENOFER) 300 mg, INTRAVENOUS, at 166.67 mL/hr, Administer over 90 Minutes, ONCE, 1 dose, On Mon09/22/23 at 1330, Please conduct a 30 minute post dose observation. Refrigerate New Bag/Syringe/Bottle 09/22/2023 1:15 PM EDT 300 mg 166.67 mL/hr FOR RECORDS PERTAINING TO PATIENTS WHO ARE [...] BE BASED ON THE PRIMARY CLINICAL RECORDS. [facility]. provides no warranty or guarantee of the accuracy or completeness of information in this document.
[2023-10-11 06:10] VITALS: BP 154/62; PULSE 59; TEMP 36.6; O2SAT 94; BMI 37.9
[2023-10-11 06:34] LABS: Glucometer 147 mg/dL (74-106)
[2023-10-11] MEDS: LACTATED RINGER'S SOLUTION 1,000 ML 50 ML IV (06:43)
[2023-10-11 07:29] VITALS: BP 145/68; PULSE 58; TEMP 36.7; O2SAT 95
[2023-10-11 07:44] VITALS: BP 146/72; PULSE 56; O2SAT 94
[2023-10-11 07:59] VITALS: BP 160/70; PULSE 56; O2SAT 94
== END 2023-10-11 07:59 | disposition home or self-care (01) ==
PROVIDERS: PCP Family Medicine; Visit Provider Surgery
PROC: (CPT 43235; principal; 2023-10-11 07:30)
DX: D50.9 Iron deficiency anemia, unspecified (principal); R14.0 Abdominal distension (gaseous); K44.9 Diaphragmatic hernia without obstruction or gangrene; Z87.19 Personal history of other diseases of the digestive system; E78.5 Hyperlipidemia, unspecified; J45.909 Unspecified asthma, uncomplicated; N40.0 Benign prostatic hyperplasia without lower urinary tract symptoms; G47.33 Obstructive sleep apnea (adult) (pediatric); Z90.49 Acquired absence of other specified parts of digestive tract; F41.9 Anxiety disorder, unspecified; N41.1 Chronic prostatitis; M79.7 Fibromyalgia; F10.11 Alcohol abuse, in remission; E11.51 Type 2 diabetes mellitus with diabetic peripheral angiopathy without gangrene; E66.01 Morbid (severe) obesity due to excess calories; Z87.442 Personal history of urinary calculi; Z79.82 Long term (current) use of aspirin; Z79.84 Long term (current) use of oral hypoglycemic drugs; Z68.37 Body mass index [BMI] 37.0-37.9, adult; Z87.891 Personal history of nicotine dependence; R10.13 Epigastric pain; K21.9 Gastro-esophageal reflux disease without esophagitis; K25.9 Gastric ulcer, unspecified as acute or chronic, without hemorrhage or perforation
CPT/HCPCS: 43235; 36415; 82948; J2704

== ENCOUNTER 2024-02-01 14:22 | Outpatient (REF) | payer MEDICARE, SELFPAY ==
--- OUTSIDE RECORDS SUMMARY | 2024-02-01 14:49 | XMS_ITS | CCD ---
Author Organization [facility] Care Team Providers Care Hand Finisher Name Role Phone PHYSICIAN, DEFAULT Unavailable Unavailable [...] Unavailable NILL ., DR HIDALGO Consulting Unavailable AGUBOSIM SHEA Consulting Unavailable DANIEL FRANCIS Consulting Unavailable HOY ., DR URIAS Admitting Unavailable HOY ., DR URIAS Attending Unavailable HOY ., DR URIAS Consulting Unavailable HOY ., DR URIAS Primary Care Unavailable Adonay Zhang MD Primary Care Provider Gwen LORENZO Attending Unavailable Adonay Zhang Referring Unavailable Gwen LORENZO Attending Unavailable Adonay Zhang MD Primary Care Provider MIRELLA SPRINGEREK Referring Unavailable ADONAY ZHANG Primary Care Unavailable ADONAY ZHANG Primary Care Unavailable ADONAY ZHANG Primary Care Unavailable ABHYANKAR, [place] Attending Unavailable HOY, ADONAY M Primary Care Unavailable ABHYANKAR, [place] Referring Unavailable HOY, ADONAY M Primary Care Unavailable ABHYANKAR, [place] Referring Unavailable HOY, ADONAY M Primary Care Unavailable ABHYANKAR, [place] Referring Unavailable HOY, ADONAY M Primary Care Unavailable HOY, ADONAY M Primary Care Unavailable HOY, ADONAY M Primary Care Unavailable ABHYANKAR, [place] Attending Unavailable HOY, ADONAY M Primary Care Unavailable HOY, ADONAY M Referring Unavailable ABHYANKAR, [place] Attending Unavailable HOY, ADONAY M Primary Care Unavailable HOY, ADONAY M Primary Care Unavailable ABHYANKAR, [place] Referring Unavailable HOY, ADONAY M Primary Care Unavailable Allergies Allergy Classification Reported Allergen(s) Allergy Type Date of Onset Reaction(s) Facility (2 sources) Sulfonamides (Antibiotic); Translations: [sulfa drugs] Drug allergy Unknown (qualifier value) General Surgery [employer] (1 source) No Known Medication Allergies; Translations: [No Known Medication Allergies] Propensity to adverse reactions (disorder) [facility] Repository Medications Current Medications Medication Drug Class(es) Dates Sig (Normalized) Sig (Original) ALPRAZolam 0.25 mg oral tablet (13 sources) Benzodiazepine take 1 tablet by mouth every twenty-four hours as needed ALPRAZolam (XANAX) 0.25 mg tablet Take 0.25 mg by mouth at bedtime as needed. 0 Active Comment on above: Take 0.25 mg by mout h at bedtime as needed. aspirin 81 mg delayed release oral tablet (14 sources) Platelet Aggregation Inhibitor, Nonsteroidal Anti-inflammatory Drug [...] (1 source) Angiotensin Converting Enzyme Inhibitor Start: take 1 tablet by mouth once daily benazepril 40 mg oral tablet 40 mg = 1 tab(s), Oral, Daily, Refills(s) 0 Start Date: 10/21/21 Status: Ordered clobetasol propionate 0.0005 mg/mg topical gel (13 sources) Corticosteroid Clobetasol Propionate 0.05 % gel Apply to affected area. 0 Active Comment on above: Apply to affected ar ea. Diclofenac 75mg Tab-DR (1 source) Start: take 1 tablet by mouth twice daily Diclofenac 75mg Tab-DR = 1 tab(s), Oral, BID, Refills(s) 0 Start Date: 10/21/21 Status: Ordered doxazosin 4 mg oral tablet (15 sources) alpha-Adrenergic Citlalli Start: take 1 tablet by mouth once daily Cardura 4 mg Tab 4 mg = 1 tab(s), Oral, Daily, Refills(s) 0 Start Date: 10/21/21 Status: Ordered Comment on above: Take 4 mg by mouth d aily at bedtime. empagliflozin 10 mg oral tablet (13 sources) Sodium-Glucose Cotransporter 2 Inhibitor take 1 tablet by mouth once daily at breakfast empagliflozin (JARDIANCE) 10 mg tablet Take by mouth daily with breakfast. 0 Active Comment on above: Take by mouth daily with breakfast. furosemide 40 mg oral tablet (15 sources) Loop Diuretic Start: take 1 tablet by mouth once daily [...] a day. glimepiride 4 mg oral tablet (15 sources) Sulfonylurea Start: take 1 tablet by mouth once daily [...] Status: Ordered linaclotide 0.145 mg oral capsule (14 sources) Guanylate Cyclase-C Agonist Start: 2 take 1 capsule by mouth once daily Linzess 145 mcg oral capsule 145 mcg = 1 cap(s), Oral, Daily, Refills(s) 0 Start Date: 10/21/21 Status: Ordered take 1 capsule by mo [facility] once daily in the morning linaclotide (LINZESS) 145 mcg capsule Ta ke by mouth daily at 6 am. 0 Active Comment on above: Take by mouth daily at 6 am. metFORMIN hydrochloride 500 mg oral tablet (15 sources) Biguanide Start: 10-21-2021 take 1 tablet [...] breakfast. metoprolol tartrate 50 mg oral tablet (15 sources) beta-Adrenergic Citlalli Start: 08-21-2023 take 1 tablet by mouth once daily Metoprolol tartrate 50 mg Tab 50 mg = 1 tab(s), Oral, Daily, Refills(s) 0 Start Date: 08/21/23 Status: Ordered Start: 10-21-2021 take 1 tablet by meme twice daily metoprolol tartrate 100 mg Tab [...] pantoprazole 40 mg delayed release oral tablet (15 sources) Proton Pump Inhibitor Start: 2 take [...] 1 tablet by meme th once daily pantoprazole DR (PROTONIX) 40 mg tablet Take 40 mg by mouth once daily. 0 Active Comment on above: Take 40 mg by mouth once daily. Potassium Chloride (14 sources) Start: 08-29-2023 potassium chloride Refills(s) 0 Start Date: 08/29/23 Status: Ordered Start: 10-21-2021 take 1 tablet by meme th twice daily potassium chloride 20 mEq ER Tab 20 mEq = 1 tab(s), Oral, BID, Refills(s) 0 Start Date: 10/21/21 Status: Ordered POTASSIUM CHLORI DE ORAL Take by mouth. 0 Active Comment on above: Take by mouth. simvastatin 20 mg oral tablet (14 sources) HMG-CoA Reductase Inhibitor Start: 2 take [...] Date: 10/21/21 Status: Ordered Vitamin B Complex (12 sources) vitamin B comple x (SUPER B COMPLEX ORAL) Take by mouth. 0 Active Comment on above: Take by mouth. Vitamin B Complex oral tablet (1 source) Start: 4 take 1 tablet by mouth once daily Vitamin B Complex oral tablet 1 tab(s), Oral, Daily, Refill(s) 0 Start Date: 08/29/23 Status: Ordered Completed/Discontinued Medications Medication Drug Class(es) Dates Sig (Normalized) Sig (Original) iron sucrose 300 mg in NaCl 0.9% 250 mL (VENOFER) (3 sources) Start: 11-10-2023 End: 11-10-2023 iron sucrose 300 mg in NaCl 0.9% 250 mL (VENOFER) Start: 11-03-2023 End: 11-03-2023 iron sucrose 300 mg in NaCl 0.9% 250 mL (VENOFER) Start: 10-27-2023 End: 10-27-2023 iron sucrose 300 mg in NaCl 0.9% 250 mL (VENOFER) Problems Active Problems Problem Classification Problem Date [...] [Personal history of urinary calculi] Onset: 2 10-21-2021 Episodic Deficiency and other anemia (20 sources) Iron deficiency anemia due to blood [...] 2 Chronic Other aftercare (1 source) 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; Translations: [OTH RESIN SHAVER CURRENT DRUG THERAPY] Onset: 3 Episodic Other connective tissue disease (2 sources) Fibromyalgia 10-21-2021 Episodic Other gastrointestinal disorders (1 source) Swollen abdomen; Translations: [Abdominal distension (gaseous)] Onset: 4 Episodic Other gastrointestinal disorders (1 source) Abdominal bloating 11-30-2021 Episodic Other gastrointestinal disorders (3 sources) Occult blood in stools; Translations: [Other fecal [...] calories; Translations: [MORBID SEVERE OBES D/T EXCESS IRCKIE] Onset: 2 Chronic Other nutritional; endocrine; and metabolic disorders (1 source) Body mass index (BMI) 32.0-32.9, adult; Translations: [BODY MASS INDEX BMI 32.0-32.9 ADULT] Onset: 2 Chronic Other nutritional; endocrine; and metabolic disorders (14 sources) Morbid obesity; Translations: [Morbid (severe) obesity [...] Onset: 12-14-2021 Episodic Other aftercare (1 source) shelter (current) use of aspirin; Translations: [RESIN SHAVER CURRENT USE OF ASPIRIN] Onset: 12-15-2021 Episodic Other aftercare (1 source) 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; Translations: [[facility] USE ORAL HYPOGLYCEMIC DX] Onset: 12-15-2021 Episodic [...] Test Name Value Interpretation Reference Range Facility [facility] 12-29-2023 CNOVSP Visit (SP) Office (HEMAS[place]) YUNIOR BEST ([id number]) 1945 M Date Time Provider Department 12/29/23 9:45 AM [place] SPRINGER During your visit today, we recorded the following information about you: Temperature Pulse Respiration Blood pressure 97.5 degrees 57/minute 18/minute 165/66 Weight 104.1 kg Austin Springer MD 12/29/2023 6:06 PM Signed NAME: Yunior Best CLINIC NO.: [id number] DATE OF SERVICE: December 29, 2023 (sasha) Some elements in this clinic note that are critical to medical decision making have been carefully reviewed and included from a prior clinic note dated: October 20, 2023 (Meghann) Referring Provider: Dr. Adonay Zhang ([facility] in [employer]) Additional Clinicians involved in Yunior Best's care: DIAGNOSIS: Iron deficiency anemia ASSESSMENT: 78 year old man with heme + stools and iron deficiency anemia. He is intolerant to oral iron therapy. Will need IV iron for replacement and diagnostic endoscopic evaluation. Suspect he has recurring ulcer. PLAN: RTC in 8 weeks Labs, including iron studies, a few days prior Plan for iron infusion same day - can cancel if iron studies are stable - HPI: CASE HISTORY: Reverse Chronological Order 10/11/2023 - Colonoscopy in [employer] with Dr. Lorenzo: Negative findings 08/25/2023 - Stool for occult blood: Positive 08/11/2023 - Ferritin: 379, Iron: 14, Folate: 27 08/09/2023 - CBC: 8.4 > 8.0 / 31.1 < 321, MCV: 69.6 Updated Visit, December 29, 2023: Yunior returns with Theo. His appetite and energy have improved, he feels better overall after receiving iron infusions. As of 12/25, Hgb is normal at 14.6. Continue monitoring with labs in 8 weeks. Updated Visit, October 20, 2023: Yunior returns today with Heidi and his son, Theo. He has been feeling better. He had a scope done in [employer] - saw nothing of concern according to Heidi. Hgb has increased to 11.8 - up from 9.0. Theo mentions Yunior's health condition got worse when he was taking care of his before she . Initial Visit, September 04, 2023: Yunior Case presents today with his daughter, Heidi, for [...] colonoscopy. 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 - REVIEW OF SYSTEMS Per HPI and otherwise negative by full review of organ systems. - ECOG PERFORMANCE STATUS: 2 PHYSICAL EXAMINATION: Vitals: BP 165/66 Pulse 57 Temp (Src) 97.5 (Temporal) Resp 18 Wt 229 lb 8 oz (104.1kg) SpO2 94% There is no height or weight on [...] lesions, wounds or petechiae. - ALLERGIES: ALLERGIES No Known Allergies MEDICATIONS: ADULT LOW DOSE ASPIRIN ORAL Take by mouth. vitamin B complex (SUPER B COMPLEX ORAL) Take by mouth. POTASSIUM CHLORIDE ORAL Take by mouth. simvastatin (ZOCOR) 20 mg tablet Take 20 mg by mouth daily at bedtime. ALPRAZolam (XANAX) 0.25 mg tablet Take 0.25 mg by mouth at bedtime as needed. Clobetasol Propionate 0.05 % gel Apply to affected area. doxazosin (CARDURA) 4 mg tablet Take 4 mg by mouth daily at bedtime. furosemide (LASIX) 40 mg tablet Take 40 mg by mouth two times a day. glimepiride (more content not included)... Normal [facility] CBC W Auto Differential pane l (Bld)on 12-26-2023 Basophils (Bld) [#/Vol] 0.04 10*3/uL [facility] Basophils/100 WBC (Bld) 0.5 % [facility] Differential cell count method Nom (Bld) Auto [facility] Eosinophils (Bld) [#/Vol] 0.43 10*3/uL [facility] Eosinophils/100 WBC (Bld) 5.0 % [facility] Erythrocyte distribution width (RBC) [Ratio] 20.3 % High 11.5 - 15.0 % [facility] Hematocrit (Bld) [Volume fraction] 46.3 % 39.0 - 51.0 % [facility] Hemoglobin (Bld) [Mass/Vol] 14.6 g/dL 13.0 - 17.0 g/dL [facility] Immature granulocytes (Bld) [#/Vol] 0.04 10*3/uL [facility] Immature granulocytes/100 WBC (Bld) 0.5 % [facility] Interpretation and review of laboratory results Abnormal [facility] Lymphocytes (Bld) [#/Vol] 1.62 10*3/uL [facility] Lymphocytes/100 WBC (Bld) 18.9 % [facility] MCH (RBC) [Entitic mass] 28.0 pg 26.0 - 34.0 pg [facility] MCHC (RBC) [Mass/Vol] 31.5 g/dL 30.5 - 36.0 g/dL [facility] MCV (RBC) [Entitic vol] 88.7 fL 80.0 - 100.0 fL [facility] Monocytes (Bld) [#/Vol] 1.09 10*3/uL High [facility] Monocytes/100 WBC (Bld) 12.7 % [facility] Neutrophils (Bld) [#/Vol] 5.33 10*3/uL [facility] Neutrophils/100 WBC (Bld) 62.4 % [facility] Nucleated RBC (Bld) [#/Vol] [facility] Nucleated RBC/100 WBC (Bld) [Ratio] 0.0 % /100 WBC [facility] Platelet mean volume (Bld) [Entitic vol] 10.0 fL 9.0 - 12.7 fL [facility] Platelets (Bld) [#/Vol] 203 10*3/uL [facility] RBC (Bld) [#/Vol] 5.22 10*6/uL 4.20 - 6.0 0 m/uL [facility] WBC (Bld) [#/Vol] 8.55 10*3/uL [facility] Basophils (Bld) [#/Vol] 0.04 10*3/uL Normal <0.11 [facility] Comment on above: Order Comment: Speci men Type: BLOOD SPECIMENOrdering Facility: [facility] Address: [address] [place] [address] Performed By: #### 5 7021-8 ####[facility] LABCLIA [id number] [place] [address] Basophils/100 WBC (Bld) 0.5 % Normal [facility] Comment on above: Order Comment: Speci men Type: BLOOD SPECIMENOrdering Facility: [facility] Address: [address] [place] [address] Performed By: #### 5 7021-8 ####[facility] LABCLIA [id number] [place] [address] Differential cell count method Nom (Bld) Auto Normal [facility] Comment on above: Order Comment: Speci men Type: BLOOD SPECIMENOrdering Facility: [facility] Address: [address] [place] [address] Performed By: #### 5 7021-8 ####[facility] LABCLIA [id number] [place] [address] Eosinophils (Bld) [#/Vol] 0.43 10*3/uL Normal <0.46 [facility] Comment on above: Order Comment: Speci men Type: BLOOD SPECIMENOrdering Facility: [facility] Address: [address] [place] [address] Performed By: #### 5 7021-8 ####[facility] LABCLIA [id number] [place] [address] Eosinophils/100 WBC (Bld) 5.0 % Normal [facility] Comment on above: Order Comment: Speci men Type: BLOOD SPECIMENOrdering Facility: [facility] Address: [address] [place] [address] Performed By: #### 5 7021-8 ####[facility] LABCLIA [id number] [place] [address] Erythrocyte distribution width (RBC) [Ratio] 20.3 % High 11.5-15.0 [facility] Comment on above: Order Comment: Speci men Type: BLOOD SPECIMENOrdering Facility: [facility] Address: [address] [place] [address] Performed By: #### 5 7021-8 ####[facility] LABCLIA [id number] [place] [address] Hematocrit (Bld) [Volume fraction] 46.3 % Normal 39.0-51.0 [facility] Comment on above: Order Comment: Speci men Type: BLOOD SPECIMENOrdering Facility: [facility] Address: [address] [place] [address] Performed By: #### 5 7021-8 ####[facility] LABIA [id number] [place] [address] Hemoglobin (Bld) [Mass/Vol] 14.6 g/dL Normal 13.0-17.0 [facility] Comment on above: Order Comment: Speci men Type: BLOOD SPECIMENOrdering Facility: [facility] Address: [address] [place] [address] Performed By: #### 5 7021-8 ####[facility] LABIA [id number] [place] [address] Immature granulocytes (Bld) [#/Vol] 0.04 10*3/uL Normal <0.10 [facility] Comment on above: Order Comment: Speci men Type: BLOOD SPECIMENOrdering Facility: [facility] Address: [address] [place] [address] Performed By: #### 5 7021-8 ####[facility] LABCLIA [id number] [place] [address] Immature granulocytes/100 WBC (Bld) 0.5 % Normal [facility] Comment on above: Order Comment: Speci men Type: BLOOD SPECIMENOrdering Facility: [facility] Address: [address] [place] [address] Performed By: #### 5 7021-8 ####[facility] LABCLIA [id number] [place] [address] Lymphocytes (Bld) [#/Vol] 1.62 10*3/uL Normal 1.00-4.00 [facility] Comment on above: Order Comment: Speci men Type: BLOOD SPECIMENOrdering Facility: [facility] Address: [address] [place] [address] Performed By: #### 5 7021-8 ####[facility] LABCLIA [id number] [place] [address] Lymphocytes/100 WBC (Bld) 18.9 % Normal [facility] Comment on above: Order Comment: Speci men Type: BLOOD SPECIMENOrdering Facility: [facility] Address: [address] [place] [address] Performed By: #### 5 7021-8 ####[facility] LABCLIA [id number] [place] [address] MCH (RBC) [Entitic mass] 28.0 pg Normal 26.0-34.0 [facility] Comment on above: Order Comment: Speci men Type: BLOOD SPECIMENOrdering Facility: [facility] Address: [address] [place] [address] Performed By: #### 5 7021-8 ####[facility] LABIA [id number] [place] [address] MCHC (RBC) [Mass/Vol] 31.5 g/dL Normal 30.5-36.0 [facility] Comment on above: Order Comment: Speci men Type: BLOOD SPECIMENOrdering Facility: [facility] Address: [address] [place] [address] Performed By: #### 5 7021-8 ####[facility] LABCLIA [id number] [place] [address] MCV (RBC) [Entitic vol] 88.7 fL Normal 80.0-100.0 [facility] Comment on above: Order Comment: Speci men Type: BLOOD SPECIMENOrdering Facility: [facility] Address: [address] [place] [address] Performed By: #### 5 7021-8 ####[facility] LABCLIA [id number] [place] [address] Monocytes (Bld) [#/Vol] 1.09 10*3/uL High <0.87 [facility] Comment on above: Order Comment: Speci men Type: BLOOD SPECIMENOrdering Facility: [facility] Address: [address] [place] [address] Performed By: #### 5 7021-8 ####[facility] LABCLIA [id number] [place] [address] Monocytes/100 WBC (Bld) 12.7 % Normal [facility] Comment on above: Order Comment: Speci men Type: BLOOD SPECIMENOrdering Facility: [facility] Address: [address] [place] [address] Performed By: #### 5 7021-8 ####[facility] LABCLIA [id number] [place] [address] Neutrophils (Bld) [#/Vol] 5.33 10*3/uL Normal 1.45-7.50 [facility] Comment on above: Order Comment: Speci men Type: BLOOD SPECIMENOrdering Facility: [facility] Address: [address] [place] [address] Performed By: #### 5 7021-8 ####[facility] LABCLIA [id number] [place] [address] Neutrophils/100 WBC (Bld) 62.4 % Normal [facility] Comment on above: Order Comment: Speci men Type: BLOOD SPECIMENOrdering Facility: [facility] Address: [address] [place] [address] Performed By: #### 5 7021-8 ####[facility] LABCLIA [id number] [place] [address] Nucleated RBC (Bld) [#/Vol] 10*3/uL Normal <0.01 [facility] Comment on above: Order Comment: Speci men Type: BLOOD SPECIMENOrdering Facility: [facility] Address: [address] [place] [address] Performed By: #### 5 7021-8 ####[facility] LABCLIA [id number] [place] [address] Nucleated RBC/100 WBC (Bld) [Ratio] 0.0 /100 WBC Normal [facility] Comment on above: Order Comment: Speci men Type: BLOOD SPECIMENOrdering Facility: [facility] Address: [address] [place] [address] Performed By: #### 5 7021-8 ####[facility] LABCLIA [id number] [place] [address] Platelet mean volume (Bld) [Entitic vol] 10.0 fL Normal 9.0-12.7 [facility] Comment on above: Order Comment: Speci men Type: BLOOD SPECIMENOrdering Facility: [facility] Address: [address] [place] [address] Performed By: #### 5 7021-8 ####[facility] LABCLIA [id number] [place] [address] Platelets (Bld) [#/Vol] 203 10*3/uL Normal 150-400 [facility] Comment on above: Order Comment: Speci men Type: BLOOD SPECIMENOrdering Facility: [facility] Address: [address] [place] [address] Performed By: #### 5 7021-8 ####[facility] LABCLIA [id number] [place] [address] RBC (Bld) [#/Vol] 5.22 10*6/uL Normal 4.20-6.00 [facility] Comment on above: Order Comment: Speci men Type: BLOOD SPECIMENOrdering Facility: [facility] Address: [address] [place] [address] Performed By: #### 5 7021-8 ####[facility] LABCLIA [id number] [place] [address] WBC (Bld) [#/Vol] 8.55 10*3/uL Normal 3.70-11.00 [facility] Comment on above: Order Comment: Speci men Type: BLOOD SPECIMENOrdering Facility: [facility] Address: [address] [place] [address] Performed By: #### 5 7021-8 ####[facility] LABCLIA [id number] [place] [address] Comprehensive metabolic 2000 panelon 12-26-2023 Albumin [Mass/Vol] 4.5 g/dL Normal 3.9-4.9 [facility] Comment on above: Order Comment: Speci men Type: BLOOD SPECIMENOrdering Facility: [facility] Address: [address] [place] [address] Performed By: #### 2 4323-8 ####[facility] LABCLIA [id number] [place] [address] ALP [Catalytic activity/Vol] 79 U/L Normal 38-113 [facility] Comment on above: Order Comment: Speci men Type: BLOOD SPECIMENOrdering Facility: [facility] Address: [address] [place] [address] Performed By: #### 2 4323-8 ####[facility] LABCLIA [id number] [place] [address] ALT [Catalytic activity/Vol] 14 U/L Normal 10-54 [facility] Comment on above: Order Comment: Speci men Type: BLOOD SPECIMENOrdering Facility: [facility] Address: [address] [place] [address] Performed By: #### 2 4323-8 ####[facility] LABCLIA [id number] [place] [address] Anion gap [Moles/Vol] 7 mmol/L Low 8-15 [facility] Comment on above: Order Comment: Speci men Type: BLOOD SPECIMENOrdering Facility: [facility] Address: [address] [place] [address] Performed By: #### 2 4323-8 ####[facility] LABCLIA [id number] [place] [address] AST [Catalytic activity/Vol] 16 U/L Normal 14-40 [facility] Comment on above: Order Comment: Speci men Type: BLOOD SPECIMENOrdering Facility: [facility] Address: [address] [place] [address] Performed By: #### 2 4323-8 ####[facility] LABCLIA [id number] [place] [address] Bilirubin [Mass/Vol] 0.2 mg/dL Normal 0.2-1.3 [facility] Comment on above: Order Comment: Speci men Type: BLOOD SPECIMENOrdering Facility: [facility] Address: [address] [place] [address] Performed By: #### 2 4323-8 ####[facility] LABCLIA [id number] [place] [address] Calcium [Mass/Vol] 9.7 mg/dL Normal 8.5-10.2 [facility] Comment on above: Order Comment: Speci men Type: BLOOD SPECIMENOrdering Facility: [facility] Address: [address] [place], [place] [address] Performed By: #### 2 4323-8 ####[facility] LABCLIA [id number] [place] [address] Chloride [Moles/Vol] 101 mmol/L Normal 98-107 [facility] Comment on above: Order Comment: Speci men Type: BLOOD SPECIMENOrdering Facility: [facility] Address: [address] [place] [address] Performed By: #### 2 4323-8 ####[facility] LABCLIA [id number] [place] [address] CO2 [Moles/Vol] 29 mmol/L Normal 22-30 [facility] Comment on above: Order Comment: Speci men Type: BLOOD SPECIMENOrdering Facility: [facility] Address: [address] [place] [address] Performed By: #### 2 4323-8 ####[facility] LABCLIA [id number] [place] [address] Creatinine [Mass/Vol] 0.94 mg/dL Normal 0.73-1.22 [facility] Comment on above: Order Comment: Speci men Type: BLOOD SPECIMENOrdering Facility: [facility] Address: [address] [place] [address] Performed By: #### 2 4323-8 ####[facility] LABCLIA [id number] [place] [address] Creatinine and Glomerular filtration rate.predicted panel (S/P/Bld) 83 mL/min/1.73m??? Normal >=60 [facility] Comment on above: Order Comment: Speci men Type: BLOOD SPECIMENOrdering Facility: [facility] Address: [address] [place] [address] Result Comment: Odette mated Glomerular Filtration Rate [...] actual GFR. Performed By: #### 2 4323-8 ####[facility] LABCLIA [id number] [place] [address] Glucose [Mass/Vol] 209 mg/dL High 74-99 [facility] Comment on above: Order Comment: Speci men Type: BLOOD SPECIMENOrdering Facility: [facility] Address: [address] [place] [address] Result Comment: The [place] Diabetes Association (ADA) provides guidance for cutoff [...] Standards of Medical Care in Diabetes 2016, [place] [employer] Association. Diabetes Care. 2016.39(Suppl 1). Performed By: #### 2 4323-8 ####[facility] LABCLIA [id number] [place] [address] Potassium [Moles/Vol] 4.1 mmol/L Normal 3.7-5.1 [facility] Comment on above: Order Comment: Speci men Type: BLOOD SPECIMENOrdering Facility: [facility] Address: [address] [place] [address] Performed By: #### 2 4323-8 ####[facility] LABCLIA [id number] [place] [address] Protein [Mass/Vol] 7.1 g/dL Normal 6.3-8.0 [facility] Comment on above: Order Comment: Speci men Type: BLOOD SPECIMENOrdering Facility: [facility] Address: [address] [place], [place] [address] Performed By: #### 2 4323-8 ####[facility] LABCLIA [id number] [place] [address] Sodium [Moles/Vol] 137 mmol/L Normal 136-144 [facility] Comment on above: Order Comment: Speci men Type: BLOOD SPECIMENOrdering Facility: [facility] Address: [address] [place] [address] Performed By: #### 2 4323-8 ####[facility] LABCLIA [id number] [place] [address] Urea nitrogen [Mass/Vol] 22 mg/dL Normal 9-24 [facility] Comment on above: Order Comment: Speci men Type: BLOOD SPECIMENOrdering Facility: [facility] Address: [address] [place] [address] Performed By: #### 2 4323-8 ####[facility] LABCLIA [id number] [place] [address] Ferritin SerPl-mCncon 2023 Ferritin [Mass/Vol] 57.5 ng/mL Normal 30.3-565.7 [facility] Comment on above: Order Comment: Speci men Type: BLOOD SPECIMENOrdering Facility: [facility] Address: [address] [place] [address] Performed By: #### 5 0190-8, 2276-4, 2132-9, 2284-8 ####[facility] LABCLIA [id number] [place] [address] [place] Folate SerPl-mCncon 12-26-19 24 Folate [Mass/Vol] ng/mL Normal >4.7 [facility] Comment on above: Order Comment: Speci men Type: BLOOD SPECIMENOrdering Facility: [facility] Address: [address] [place] [address] Result Comment: A re sult of > 20 ng/mL is not necessarily indicative of a pathologic or treatable condition: it reflects a limitation of the test methodology. Assay reference range: 4.8 to 24.2 ng/mL. Suitable for detection of folate deficiency. Reference: Folate III (Folate III) [package insert V 1.0 [place]]. [facility], [place], [place]: May 2015. Performed By: #### 5 0190-8, 4, 2132-03, 2284-02 ####[facility] LABCLIA [id number] [place] [id number] [place] Iron and Iron binding capaci panel 12-26-2023 Iron [Mass/Vol] 73 ug/dL Normal 41-186 [facility] Comment on above: Order Comment: Speci men Type: BLOOD SPECIMENOrdering Facility: [facility] Address: [address] [place] [address] Performed By: #### 5 0190-8, 2275-10, 2132-03, 2284-02 ####[facility] LABIA [id number] [place] [address] [place] Iron binding capacity [Mass/Vol] 355 ug/dL Normal 232-386 [facility] Comment on above: Order Comment: Speci men Type: BLOOD SPECIMENOrdering Facility: [facility] Address: [address] [place] [address] Performed By: #### 5 0190-8, 2275-10, 2132-03, 2284-02 ####[facility] LABIA [id number] [place] [address] [place] Iron/TIBC [Molar ratio] 20.6 % Normal 15.0-57.0 [facility] Comment on above: Order Comment: Speci men Type: BLOOD SPECIMENOrdering Facility: [facility] Address: [address] [place] [address] Performed By: #### 5 0190-8, 2275-10, 2132-03, 2284-02 ####[facility] LABCLIA [id number] [place] [id number] [place] Vit B12 [facility] 024 Cobalamin (Vitamin B12) [Mass/Vol] 582 pg/mL Normal 232-1245 [facility] Comment on above: Order Comment: Speci men Type: BLOOD SPECIMENOrdering Facility: [facility] Address: [address] [place] [address] Performed By: #### 5 0190-8, 2276-4, 2132-9, 2284-8 ####[facility] LABCLIA [id number] [place] [address] [place] [id number] [facility] CNPNon 12-25-2023 CNPN Telephone (HEMTSA) ESTEPHANIAYUNIOR Juani ([id number]) 1945 M Date Time Provider Department 12/25/23 ALICIA PIRES During your visit today, we recorded the following information about you: Alicia Pires RN 12/25/2023 9:19 AM Signed Opened in error Allergies As of Date: 12/25/2023 (No Known Allergies) Date Reviewed: 11/03/2023 Reviewed by: Alicia Pires RN - Fully Assessed Reason for Visit: Orders [681] Prescriptions as of 12/25/2023 - ADULT LOW DOSE ASPIRIN ORAL Take [...] once daily. Problem List As Of Date 12/25/2023 Noted Resolved Iron deficiency anemia due to chronic blood los*09/04/2023 Morbid obesity (HCC) [E66.01] 09/04/2023 Encounter Status:Closed by ALICIA PIRES on 12/25/23 [facility] CNPN Telephone (HEMTSA) ESTEPHANIAYUNIOR ([id number]) 1945 M Date Time Provider Department 12/25/23 CATRACHITA CALDERA During your visit today, we recorded the following information about you: Catrachita Caldera RN 12/25/2023 10:[address] Meghann Mojica is coming in for lab work tomorrow 12/26/23 in preparation for an appointment with you on 12/29/23. There are no lab orders available. I have pended orders based on what was ordered in October. Can you please review and sign and add anything else you may want. Thanks KASH Parks Brian R, MD 12/26/2023 10:23 AM Signed Addended by: TITI CASTANO on: 12/26/2023 10:23 AM Modules accepted: Orders Allergies As of Date: 12/25/2023 (No Known Allergies) Date Reviewed: 11/03/2023 Reviewed by: Alicia Pires RN - Fully Assessed Reason for Visit: Orders [681] Primary Visit Diagnosis:Iron deficiency anemia due to chronic blood loss [D50.0] Order(s):FOLATE, SERUM [SQSERFOL] Order #: [id number] FUTURE VITAMIN B12 [SQB12] Order #: [id number] FUTURE IRON AND TIBC [SQIRON] Order #: [id number] FUTURE COMPLETE BLOOD COUNT AND DIFFERENTIAL [SQCBCDIF] Order #: [id number] FUTURE COMPREHENSIVE METABOLIC PANEL [SQCMP] Order #: [id number] FUTURE IRON AND TIBC [SQIRON] Order #: [id number] FUTURE FERRITIN [SQFERR] Order #: [id number] FUTURE Prescriptions as of 12/26/2023 - ADULT LOW DOSE ASPIRIN ORAL Take [...] once daily. Problem List As Of Date 12/25/2023 Noted Resolved Iron deficiency anemia due to chronic blood los*09/04/2023 Morbid obesity (HCC) [E66.01] 09/04/2023 Encounter Status:Closed by CATRACHITA CALDERA on 12/26/23 Normal [facility] CBC W Auto Differential pane l (Bld)on 10-20-2023 Basophils (Bld) [#/Vol] 0.04 10*3/uL Normal <0.11 [facility] Comment on above: Order Comment: Speci men Type: BLOOD SPECIMENOrdering Facility: [facility] Address: [address] [place] [address] Performed By: #### 5 7021-8 ####[facility] LABCLIA [id number] [place] [address] Basophils/100 WBC (Bld) 0.5 % Normal [facility] Comment on above: Order Comment: Speci men Type: BLOOD SPECIMENOrdering Facility: [facility] Address: [address] [place] [address] Performed By: #### 5 7021-8 ####[facility] LABCLIA [id number] [place] [address] Differential cell count method Nom (Bld) Auto Normal [facility] Comment on above: Order Comment: Speci men Type: BLOOD SPECIMENOrdering Facility: [facility] Address: [address] [place] [address] Performed By: #### 5 7021-8 ####[facility] LABCLIA [id number] [place] [address] Eosinophils (Bld) [#/Vol] 0.41 10*3/uL Normal <0.46 [facility] Comment on above: Order Comment: Speci men Type: BLOOD SPECIMENOrdering Facility: [facility] Address: [address] [place] [address] Performed By: #### 5 7021-8 ####[facility] LABCLIA [id number] [place] [address] Eosinophils/100 WBC (Bld) 5.2 % Normal [facility] Comment on above: Order Comment: Speci men Type: BLOOD SPECIMENOrdering Facility: [facility] Address: [address] [place] [address] Performed By: #### 5 7021-8 ####[facility] LABCLIA [id number] [place] [address] Erythrocyte distribution width (RBC) [Ratio] 27.8 % High 11.5-15.0 [facility] Comment on above: Order Comment: Speci men Type: BLOOD SPECIMENOrdering Facility: [facility] Address: [address] [place] [address] Performed By: #### 5 7021-8 ####[facility] LABCLIA [id number] [place] [address] Hematocrit (Bld) [Volume fraction] 42.2 % Normal 39.0-51.0 [facility] Comment on above: Order Comment: Speci men Type: BLOOD SPECIMENOrdering Facility: [facility] Address: [address] [place] [address] Performed By: #### 5 7021-8 ####[facility] LABCLIA [id number] [place] [address] Hemoglobin (Bld) [Mass/Vol] 11.8 g/dL Low 13.0-17.0 [facility] Comment on above: Order Comment: Speci men Type: BLOOD SPECIMENOrdering Facility: [facility] Address: [address] [place] [address] Performed By: #### 5 7021-8 ####[facility] LABCLIA [id number] [place] [address] Immature granulocytes (Bld) [#/Vol] 10*3/uL Normal <0.10 [facility] Comment on above: Order Comment: Speci men Type: BLOOD SPECIMENOrdering Facility: [facility] Address: [address] [place] [address] Performed By: #### 5 7021-8 ####[facility] LABCLIA [id number] [place] [address] Immature granulocytes/100 WBC (Bld) 0.3 % Normal [facility] Comment on above: Order Comment: Speci men Type: BLOOD SPECIMENOrdering Facility: [facility] Address: [address] [place] [address] Performed By: #### 5 7021-8 ####[facility] LABCLIA [id number] [place] [address] Lymphocytes (Bld) [#/Vol] 1.68 10*3/uL Normal 1.00-4.00 [facility] Comment on above: Order Comment: Speci men Type: BLOOD SPECIMENOrdering Facility: [facility] Address: [address] [place] [address] Performed By: #### 5 7021-8 ####[facility] LABCLIA [id number] [place] [address] Lymphocytes/100 WBC (Bld) 21.5 % Normal [facility] Comment on above: Order Comment: Speci men Type: BLOOD SPECIMENOrdering Facility: [facility] Address: [address] [place] [address] Performed By: #### 5 7021-8 ####[facility] LABCLIA [id number] [place] [address] MCH (RBC) [Entitic mass] 22.7 pg Low 26.0-34.0 [facility] Comment on above: Order Comment: Speci men Type: BLOOD SPECIMENOrdering Facility: [facility] Address: [address] [place] [address] Performed By: #### 5 7021-8 ####[facility] LABCLIA [id number] [place] [address] MCHC (RBC) [Mass/Vol] 28.0 g/dL Low 30.5-36.0 [facility] Comment on above: Order Comment: Speci men Type: BLOOD SPECIMENOrdering Facility: [facility] Address: [address] [place] [address] Performed By: #### 5 7021-8 ####[facility] LABCLIA [id number] [place] [address] MCV (RBC) [Entitic vol] 81.3 fL Normal 80.0-100.0 [facility] Comment on above: Order Comment: Speci men Type: BLOOD SPECIMENOrdering Facility: [facility] Address: [address] [place] [address] Performed By: #### 5 7021-8 ####[facility] LABCLIA [id number] [place] [address] Monocytes (Bld) [#/Vol] 0.76 10*3/uL Normal <0.87 [facility] Comment on above: Order Comment: Speci men Type: BLOOD SPECIMENOrdering Facility: [facility] Address: [address] [place] [address] Performed By: #### 5 7021-8 ####[facility] LABCLIA [id number] [place] [address] Monocytes/100 WBC (Bld) 9.7 % Normal [facility] Comment on above: Order Comment: Speci men Type: BLOOD SPECIMENOrdering Facility: [facility] Address: [address] [place] [address] Performed By: #### 5 7021-8 ####[facility] LABCLIA [id number] [place] [address] Neutrophils (Bld) [#/Vol] 4.92 10*3/uL Normal 1.45-7.50 [facility] Comment on above: Order Comment: Speci men Type: BLOOD SPECIMENOrdering Facility: [facility] Address: [address] [place] [address] Performed By: #### 5 7021-8 ####[facility] LABCLIA [id number] [place] [address] Neutrophils/100 WBC (Bld) 62.8 % Normal [facility] Comment on above: Order Comment: Speci men Type: BLOOD SPECIMENOrdering Facility: [facility] Address: [address] [place] [address] Performed By: #### 5 7021-8 ####[facility] LABCLIA [id number] [place] [address] Nucleated RBC (Bld) [#/Vol] 10*3/uL Normal <0.01 [facility] Comment on above: Order Comment: Speci men Type: BLOOD SPECIMENOrdering Facility: [facility] Address: [address] [place] [address] Performed By: #### 5 7021-8 ####[facility] LABCLIA [id number] [place] [address] Nucleated RBC/100 WBC (Bld) [Ratio] 0.0 /100 WBC Normal [facility] Comment on above: Order Comment: Speci men Type: BLOOD SPECIMENOrdering Facility: [facility] Address: [address] [place] [address] Performed By: #### 5 7021-8 ####[facility] LABCLIA [id number] [place] [address] Platelet mean volume (Bld) [Entitic vol] 9.5 fL Normal 9.0-12.7 [facility] Comment on above: Order Comment: Speci men Type: BLOOD SPECIMENOrdering Facility: [facility] Address: [address] [place] [address] Performed By: #### 5 7021-8 ####[facility] LABCLIA [id number] [place] [address] Platelets (Bld) [#/Vol] 260 10*3/uL Normal 150-400 [facility] Comment on above: Order Comment: Speci men Type: BLOOD SPECIMENOrdering Facility: [facility] Address: [address] [place] [address] Performed By: #### 5 7021-8 ####[facility] LABCLIA [id number] [place] [address] RBC (Bld) [#/Vol] 5.19 10*6/uL Normal 4.20-6.00 [facility] Comment on above: Order Comment: Speci men Type: BLOOD SPECIMENOrdering Facility: [facility] Address: [address] [place] [address] Performed By: #### 5 7021-8 ####[facility] LABIA [id number] [place] [address] WBC (Bld) [#/Vol] 7.83 10*3/uL Normal 3.70-11.00 [facility] Comment on above: Order Comment: Speci men Type: BLOOD SPECIMENOrdering Facility: [facility] Address: [address] [place] [address] Performed By: #### 5 7021-8 ####[facility] LABCLIA [id number] [place] [address] CNOVSPon 10-20-2023 CNOVSP Visit (SP) Office (HEMASA) YUNIOR BEST ([id number]) 1945 M Date Time Provider Department 10/20/23 11:00 AM [facility] During your visit today, we recorded the following information about you: Temperature Pulse Respiration Blood pressure 97.2 degrees 55/minute 18/minute 182/52 Weight 103.3 kg Austin Springer MD 10/21/2023 3:48 PM Signed NAME: Yunior Best [facility] NO.: [id number] DATE OF SERVICE: October 20, 2023 (Meghann) Some elements in this clinic note that are critical to medical decision making have been carefully reviewed and included from a prior clinic note dated: September 04, 2023 (Meghann) Referring Provider: Dr. Adonay Zhang ([facility]) Additional Clinicians involved in Yunior Best's care: DIAGNOSIS: Iron deficiency anemia ASSESSMENT: 78 year old man with heme + stools and iron deficiency anemia. He is intolerant to oral iron therapy. Will need IV iron for replacement and diagnostic endoscopic evaluation. Suspect he has recurring ulcer. PLAN: Obtain results of colonoscopy from [employer] with Dr. Humberto Cee x3 weekly doses, start next week - prefers Fridays RTC in 8 weeks Labs same day, include iron studies Iron infusion same day - HPI: CASE HISTORY: Reverse Chronological Order 10/11/2023 - Colonoscopy in [employer] with Dr. Lorenzo 08/25/2023 - Stool for occult blood: Positive 08/11/2023 - Ferritin: 379, Iron: 14, Folate: 27 08/09/2023 - CBC: 8.4 > 8.0 / 31.1 < 321, MCV: 69.6 Updated Visit, October 20, 2023: Yunior returns today with Heidi and his son, Theo. He has been feeling better. He had a scope done in [employer] - saw nothing of concern according to Heidi. HGB has increased to 11.8 - up from 9.0. Theo mentions Yunior's health condition got worse when he was taking care of his before she . Initial Visit, September 04, 2023: Yunior Best presents today with his daughter, Heidi, [...] colonoscopy. 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 - REVIEW OF SYSTEMS Per HPI and otherwise negative by full review of organ systems. - ECOG PERFORMANCE STATUS: 2 PHYSICAL EXAMINATION: Vitals: BP 182/52 Pulse 55 Temp (Src) 97.2 (Temporal) Resp 18 Wt 227 lb 11.8 oz (103.3kg) SpO2 95% There is no height or weight on [...] lesions, wounds or petechiae. - ALLERGIES: ALLERGIES No Known Allergies MEDICATIONS: ADULT LOW DOSE ASPIRIN ORAL Take by mouth. vitamin B complex (SUPER B COMPLEX ORAL) Take by mouth. POTASSIUM CHLORIDE ORAL Take by mouth. simvastatin (ZOCOR) 20 mg tablet Take 20 mg by mouth daily at bedtime. ALPRAZolam (XANAX) 0.25 mg tablet Take 0.25 mg by mouth at bedtime as needed. Clobetasol Propionate 0.05 % gel Apply to [...] (LINZESS) 145 mcg capsule Take by mouth (more content not included)... Normal [facility] Comprehensive metabolic 2000 panelon 10-20-2023 Albumin [Mass/Vol] 4.5 g/dL Normal 3.9-4.9 [facility] Comment on above: Order Comment: Speci men Type: BLOOD SPECIMENOrdering Facility: [facility] Address: [address] [place], [place] [address] Performed By: #### 2 4323-8 ####[facility] LABCLIA [id number] [place] [address] ALP [Catalytic activity/Vol] 79 U/L Normal 38-113 [facility] Comment on above: Order Comment: Speci men Type: BLOOD SPECIMENOrdering Facility: [facility] Address: [address] [place] [address] Performed By: #### 2 4323-8 ####[facility] LABCLIA [id number] [place] [address] ALT [Catalytic activity/Vol] 13 U/L Normal 10-54 [facility] Comment on above: Order Comment: Speci men Type: BLOOD SPECIMENOrdering Facility: [facility] Address: [address] [place] [id number] Performed By: #### 2 4323-8 ####[facility] LABCLIA [id number] [place] [address] Anion gap [Moles/Vol] 12 mmol/L Normal 9-18 [facility] Comment on above: Order Comment: Speci men Type: BLOOD SPECIMENOrdering Facility: [facility] Address: [address] [place] [address] Performed By: #### 2 4323-8 ####[facility] LABCLIA [id number] [place] [address] AST [Catalytic activity/Vol] 16 U/L Normal 14-40 [facility] Comment on above: Order Comment: Speci men Type: BLOOD SPECIMENOrdering Facility: [facility] Address: [address] [place] [address] Performed By: #### 2 4323-8 ####[facility] LABCLIA [id number] [place] [address] Bilirubin [Mass/Vol] 0.2 mg/dL Normal 0.2-1.3 [facility] Comment on above: Order Comment: Speci men Type: BLOOD SPECIMENOrdering Facility: [facility] Address: [address] [place] [address] Performed By: #### 2 4323-8 ####[facility] LABCLIA [id number] [place] [address] Calcium [Mass/Vol] 9.7 mg/dL Normal 8.5-10.2 [facility] Comment on above: Order Comment: Speci men Type: BLOOD SPECIMENOrdering Facility: [facility] Address: [address] [place] [address] Performed By: #### 2 4323-8 ####[facility] LABCLIA [id number] [place] [address] Chloride [Moles/Vol] 107 mmol/L High 97-105 [facility] Comment on above: Order Comment: Speci men Type: BLOOD SPECIMENOrdering Facility: [facility] Address: [address] [place] [address] Performed By: #### 2 4323-8 ####[facility] LABCLIA [id number] [place] [address] CO2 [Moles/Vol] 29 mmol/L Normal 22-30 [facility] Comment on above: Order Comment: Speci men Type: BLOOD SPECIMENOrdering Facility: [facility] Address: [address] [place] [address] Performed By: #### 2 4323-8 ####[facility] LABCLIA [id number] [place] [address] Creatinine [Mass/Vol] 1.25 mg/dL High 0.73-1.22 [facility] Comment on above: Order Comment: Speci men Type: BLOOD SPECIMENOrdering Facility: [facility] Address: [address] [place] [address] Performed By: #### 2 4323-8 ####[facility] LABCLIA [id number] [place] [address] Creatinine and Glomerular filtration rate.predicted panel (S/P/Bld) 59 mL/min/1.73m??? Low >=60 [facility] Comment on above: Order Comment: Speci men Type: BLOOD SPECIMENOrdering Facility: [facility] Address: [address] [place] [address] Result Comment: Odette mated Glomerular Filtration Rate [...] actual GFR. Performed By: #### 2 4323-8 ####[facility] LABCLIA [id number] [place] [address] Glucose [Mass/Vol] 195 mg/dL High 74-99 [facility] Comment on above: Order Comment: Speci men Type: BLOOD SPECIMENOrdering Facility: [facility] Address: [address] [place] [address] Result Comment: The [place] [employer] (ADA) provides guidance for cutoff [...] Standards of Medical Care in Diabetes 2016, [place] [employer]. Diabetes Care. 2016.39(Suppl 1). Performed By: #### 2 4323-8 ####[facility] LABCLIA [id number] [place] [address] Potassium [Moles/Vol] 4.7 mmol/L Normal 3.7-5.1 [facility] [facility] Comment on above: Order Comment: Speci men Type: BLOOD SPECIMENOrdering Facility: [facility] Address: [address] [place], [place] [address] Performed By: #### 2 4323-8 ####[facility] LABCLIA [id number] [place] [address] Protein [Mass/Vol] 6.8 g/dL Normal 6.3-8.0 [facility] Comment on above: Order Comment: Speci men Type: BLOOD SPECIMENOrdering Facility: [facility] Address: [address] [place] [address] Performed By: #### 2 4323-8 ####[facility] LABCLIA [id number] [place] [address] Sodium [Moles/Vol] 148 mmol/L High 136-144 [facility] Comment on above: Order Comment: Speci men Type: BLOOD SPECIMENOrdering Facility: [facility] Address: [address] [place] [address] Performed By: #### 2 4323-8 ####[facility] LABCLIA [id number] [place] [address] Urea nitrogen [Mass/Vol] 18 mg/dL Normal 9-24 [facility] Comment on above: Order Comment: Speci men Type: BLOOD SPECIMENOrdering Facility: [facility] Address: [address] [place] [address] Performed By: #### 2 4323-8 ####[facility] LABCLIA [id number] [place] [address] Ferritin SerPl-mCncon 2023 Ferritin [Mass/Vol] 42.5 ng/mL Normal 30.3-565.7 [facility] Comment on above: Order Comment: Speci men Type: BLOOD SPECIMENOrdering Facility: [facility] Address: [address] [place] [address] Performed By: #### 2 132-9, 06001-3, 2276-4, 2284-8 ####[facility] LABCLIA [id number] [place] [address] [place] Folate SerPl-mCncon 10-20-19 24 Folate [Mass/Vol] ng/mL Normal >4.7 [facility] Comment on above: Order Comment: Speci men Type: BLOOD SPECIMENOrdering Facility: [facility] Address: [address] [place] [address] Result Comment: A re sult of > 20 ng/mL is not necessarily indicative of a pathologic or treatable condition: it reflects a limitation of the test methodology. Assay reference range: 4.8 to 24.2 ng/mL. Suitable for detection of folate deficiency. Reference: Folate III (Folate III) [package insert V 1.0 [place]ian]. [employer], [place], [place]: May 2015. Performed By: #### 2 132-9, 69033-5, 6-4, 2283-8 ####[facility] LABIA [id number] [place] [id number] [place] Iron and Iron binding capaci ty panelon 10-20-2023 Iron [Mass/Vol] 34 ug/dL Low 41-186 [facility] Comment on above: Order Comment: Speci men Type: BLOOD SPECIMENOrdering Facility: [facility] Address: [address] [place] [address] Performed By: #### 2 132-9, 03584-2, 2275-4, 8 ####[facility] [id number] [place] [address] [place] Iron binding capacity [Mass/Vol] 399 ug/dL High 232-386 [facility] Comment on above: Order Comment: Speci men Type: BLOOD SPECIMENOrdering Facility: [facility] Address: [address] [place] [address] Performed By: #### 2 132-9, 75284-7, 6-4, 8 ####[facility] [id number] [place] [address] [place] Iron/TIBC [Molar ratio] 8.5 % Low 15.0-57.0 [facility] Comment on above: Order Comment: Speci men Type: BLOOD SPECIMENOrdering Facility: [facility] Address: [address] [place] [address] Performed By: #### 2 132-9, 40782-1, 2275-4, 8 ####[facility] LABIA [id number] [place] [id number] [place] Vit B12 SerPl-mCncon 024 Cobalamin (Vitamin B12) [Mass/Vol] 626 pg/mL Normal 232-1245 [facility] Comment on above: Order Comment: Speci men Type: BLOOD SPECIMENOrdering Facility: [facility] Address: [address] [place] [id number] Performed By: #### 2 132-9, 91867-3, 2276-4, 2284-8 ####[facility] LABCLIA [id number] [facility] [place] [id number] [place] Operative Reporton Operative Report [id number]#1 .00TIFF Normal [facility] Lab Reportson 10-11-2023 Lab Reports [id number]#1 .00TIFF Normal [facility] Insurance Correspondenceon 0 09-28-2023 Insurance Correspondence [id number]# 1.00TIFF Normal [facility] CNPNon 09-15-2023 CNPN Telephone (HEMTSA) CASE,YUNIOR Gloria ([id number]) 1945 M Date Time Provider Department 09/15/23 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 Allergies As of Date: 09/15/2023 (Not on File) Date Reviewed: 09/04/2023 Reviewed by: Werner Sonia - Fully Assessed Reason for Visit: Benefits Investigation [3350] Prescriptions as of 09/15/2023 - ADULT LOW [...] Status:Closed by YORDAN DUGAN on 09/15/23 Normal [facility] CBC W Auto Differential pane l (Bld)on 09-04-2023 Anisocytosis Ql (Bld) Present Normal [facility] Comment on above: Order Comment: Speci men Type: BLOOD SPECIMENOrdering Facility: [facility] Address: [address] [place] [address] Performed By: #### 5 7021-8 ####[facility] LABCLIA [id number] [place] [address] LABCLIA [id number] [place] [address] [place]#### 59572-7 ####[facility] LABCLIA [id number] [place] [address] Basophils (Bld) [#/Vol] 0.00 10*3/uL Normal <0.11 [facility] Comment on above: Order Comment: Speci men Type: BLOOD SPECIMENOrdering Facility: [facility] Address: [address] [place] [id number] Performed By: #### 5 7021-8 ####[facility] LABCLIA [id number] [place], [place] [address]ZEMIHZTLFCOMMUNITY REGIONAL [facility] LABCLIA [id number] [place] [address] [place]#### 21983-2 ####[facility] LABCLIA [id number] [place] [address] Basophils/100 WBC (Bld) 0.0 % Normal [facility] Comment on above: Order Comment: Speci men Type: BLOOD SPECIMENOrdering Facility: [facility] Address: [address] [place], [place] [address] Performed By: #### 5 7021-8 ####[facility] LABCLIA [id number] [place] [address] LABCLIA [id number] [place] [address] [place]#### 67522-5 ####[facility] LABCLIA [id number] [place] [address] Differential cell count method Nom (Bld) Manual Normal [facility] Comment on above: Order Comment: Speci men Type: BLOOD SPECIMENOrdering Facility: [facility] Address: [address] [place], [place] [address] Performed By: #### 5 7021-8 ####[facility] LABCLIA [id number] [place] [address] LABCLIA [id number] [place] [address] [place]#### 67440-2 ####[facility] LABCLIA [id number] [place] [address] Eosinophils (Bld) [#/Vol] 0.26 10*3/uL Normal <0.46 [facility] Comment on above: Order Comment: Speci men Type: BLOOD SPECIMENOrdering Facility: [facility] Address: [address] [place] [address] Performed By: #### 5 7021-8 ####[facility] LABCLIA [id number] [place] [address] LABCLIA [id number] [place] [address] [place]#### 70308-2 ####[facility] LABCLIA [id number] [place] [address] Eosinophils/100 WBC (Bld) 2.9 % Normal [facility] Comment on above: Order Comment: Speci men Type: BLOOD SPECIMENOrdering Facility: [facility] Address: [address] [place] [address] Performed By: #### 5 7021-8 ####[facility] LABCLIA [id number] [place] [address] LABCLIA [id number] [place] [address] [place]#### 01477-2 ####[facility] LABCLIA [id number] [place] [address] Erythrocyte distribution width (RBC) [Ratio] 20.9 % High 11.5-15.0 [facility] Comment on above: Order Comment: Speci men Type: BLOOD SPECIMENOrdering Facility: [facility] Address: [address] [place] [address] Performed By: #### 5 7021-8 ####[facility] LABCLIA [id number] [place] [address] LABCLIA [id number] [place] [address] [place]#### 77069-6 ####[facility] LABCLIA [id number] [place] [address] Hematocrit (Bld) [Volume fraction] 33.9 % Low 39.0-51.0 [facility] Comment on above: Order Comment: Speci men Type: BLOOD SPECIMENOrdering Facility: [facility] Address: [address] [place] [address] Performed By: #### 5 7021-8 ####[facility] LABCLIA [id number] [place] [address] LABCLIA [id number] [address] [place]#### 64811-8 ####[facility] LABCLIA [id number] [place] [address] Hemoglobin (Bld) [Mass/Vol] 9.0 g/dL Low 13.0-17.0 [facility] Comment on above: Order Comment: Speci men Type: BLOOD SPECIMENOrdering Facility: [facility] Address: [address] [place] [address] Performed By: #### 5 7021-8 ####[facility] LABCLIA [id number] [place] [address] LABCLIA [id number] [address] [place]#### 28707-2 ####[facility] LABCLIA [id number] [place] [address] Lymphocytes (Bld) [#/Vol] 1.55 10*3/uL Normal 1.00-4.00 [facility] Comment on above: Order Comment: Speci men Type: BLOOD SPECIMENOrdering Facility: [facility] Address: [address] [place] [address] Performed By: #### 5 7021-8 ####[facility] LABCLIA [id number] [place], [place] [address]QUODOIFSRCOMMUNITY REGIONAL [facility] LABCLIA [id number] [place] [address] [place]#### 02902-7 ####[facility] LABCLIA [id number] [place] [address] Lymphocytes/100 WBC (Bld) 17.1 % Normal [facility] Comment on above: Order Comment: Speci men Type: BLOOD SPECIMENOrdering Facility: [facility] Address: [address] [place] [address] Performed By: #### 5 7021-8 ####[facility] LABCLIA [id number] [place] [address] LABCLIA [id number] [place] [address] [place]#### 26265-7 ####[facility] LABCLIA [id number] [place] [address] MCH (RBC) [Entitic mass] 18.5 pg Low 26.0-34.0 [facility] Comment on above: Order Comment: Speci men Type: BLOOD SPECIMENOrdering Facility: [facility] Address: [address] [place] [address] Performed By: #### 5 7021-8 ####[facility] LABCLIA [id number] [place], [place] [address]RWERQLRWZCOMMUNITY REGIONAL [facility] LABCLIA [id number] [place] [address] [place]#### 78513-6 ####[facility] LABCLIA [id number] [place] [address] MCHC (RBC) [Mass/Vol] 26.5 g/dL Low 30.5-36.0 [facility] Comment on above: Order Comment: Speci men Type: BLOOD SPECIMENOrdering Facility: [facility] Address: [address] [place] [address] Performed By: #### 5 7021-8 ####[facility] LABCLIA [id number] [place], [place] [address]DJCOFDMCRCOMMUNITY REGIONAL [facility]ICAL [facility] LABCLIA [id number] [place] [address] [place]#### 29453-8 ####[facility] LABCLIA [id number] [place] [address] MCV (RBC) [Entitic vol] 69.8 fL Low 80.0-100.0 [facility] Comment on above: Order Comment: Speci men Type: BLOOD SPECIMENOrdering Facility: [facility] Address: [address] [place] [address] Performed By: #### 5 7021-8 ####[facility] LABCLIA [id number] [place] [address] LABCLIA [id number] [place] [address] [place]#### 56596-8 ####[facility] LABCLIA [id number] [place] [address] Monocytes (Bld) [#/Vol] 0.69 10*3/uL Normal <0.87 [facility] Comment on above: Order Comment: Speci men Type: BLOOD SPECIMENOrdering Facility: [facility] Address: [address] [place] [address] Performed By: #### 5 7021-8 ####[facility] LABCLIA [id number] [place] [address] LABCLIA [id number] [place] [address] [place]#### 32468-2 ####[facility] LABCLIA [id number] [place] [address] Monocytes/100 WBC (Bld) 7.6 % Normal [facility] Comment on above: Order Comment: Speci men Type: BLOOD SPECIMENOrdering Facility: [facility] Address: [address] [place] [address] Performed By: #### 5 7021-8 ####[facility] LABCLIA [id number] [place], [place] [address]QQNKPZILRCOMMUNITY REGIONAL MEDICAL [facility]ENTER LABCLIA [id number] [place] [address] [place]#### 23727-1 ####[facility] LABCLIA [id number] [place] [address] Neutrophils (Bld) [#/Vol] 6.57 10*3/uL Normal 1.45-7.50 [facility] Comment on above: Order Comment: Speci men Type: BLOOD SPECIMENOrdering Facility: [facility] Address: [address] [place] [address] Performed By: #### 5 7021-8 ####[facility] LABCLIA [id number] [place], [place] [address]FKTXTWBXVCOMMUNITY REGIONAL [facility]ICAL [facility] LABCLIA [id number] [place] [address] [place]#### 17388-0 ####[facility] LABCLIA [id number] [place] [address] Neutrophils/100 WBC (Bld) 72.4 % Normal [facility] Comment on above: Order Comment: Speci men Type: BLOOD SPECIMENOrdering Facility: [facility] Address: [address] [place] [address] Performed By: #### 5 7021-8 ####[facility] LABCLIA [id number] [place] [address] LABCLIA [id number] [place] [address] [place]#### 71586-7 ####[facility] LABCLIA [id number] [place] [address] Nucleated RBC (Bld) [#/Vol] 10*3/uL Normal <0.01 [facility] Comment on above: Order Comment: Speci men Type: BLOOD SPECIMENOrdering Facility: [facility] Address: [address] [place] [address] Performed By: #### 5 7021-8 ####[facility] LABCLIA [id number] [place] [address] LABCLIA [id number] [place] [address] [place]#### 28323-0 ####[facility] LABCLIA [id number] [place] [address] Nucleated RBC/100 WBC (Bld) [Ratio] 0.0 /100 WBC Normal [facility] Comment on above: Order Comment: Speci men Type: BLOOD SPECIMENOrdering Facility: [facility] Address: [address] [place] [address] Performed By: #### 5 7021-8 ####[facility] LABCLIA [id number] [place] [address] LABCLIA [id number] [place] [address] [place]#### 52750-1 ####[facility] LABCLIA [id number] [place] [address] Ovalocytes LM Ql (Bld) Few Normal [facility] Comment on above: Order Comment: Speci men Type: BLOOD SPECIMENOrdering Facility: [facility] Address: [address] [place] [address] Performed By: #### 5 7021-8 ####[facility] LABCLIA [id number] [place], [place] [address]TFTKPFEQPCOMMUNITY REGIONAL [facility] LABCLIA [id number] [place] [address] [place]#### 46966-9 ####[facility] LABCLIA [id number] [place] [address] Platelet mean volume (Bld) [Entitic vol] 9.3 fL Normal 9.0-12.7 [facility] Comment on above: Order Comment: Speci men Type: BLOOD SPECIMENOrdering Facility: [facility] Address: [address] [place] [address] Performed By: #### 5 7021-8 ####[facility] LABCLIA [id number] [address] LABCLIA [id number] [place] [address] [place]#### 97701-1 ####[facility] LABCLIA [id number] [place] [address] Platelets (Bld) [#/Vol] 425 10*3/uL High 150-400 [facility] Comment on above: Order Comment: Speci men Type: BLOOD SPECIMENOrdering Facility: [facility] Address: [address] [place] [address] Result Comment: No c lot detected.Results checked and verified. Performed By: #### 5 7021-8 ####[facility] LABCLIA [id number] [place] [address] LABCLIA [id number] [place] [address] [place]#### 56104-1 ####[facility] LABCLIA [id number] [place] [address] Platelets Estimate (Bld) [#/Vol] Increased Normal [facility] Comment on above: Order Comment: Speci men Type: BLOOD SPECIMENOrdering Facility: [facility] Address: [address] [place], [place] [address] Performed By: #### 5 7021-8 ####[facility] LABCLIA [id number] [place], [place] [address]NKOCVZSOPCOMMUNITY REGIONAL [facility]ICAL [facility] LABCLIA [id number] [place] [address] [place]#### 53996-0 ####[facility] LABCLIA [id number] [place] [address] RBC (Bld) [#/Vol] 4.86 10*6/uL Normal 4.20-6.00 [facility] Comment on above: Order Comment: Speci men Type: BLOOD SPECIMENOrdering Facility: [facility] Address: [address] [place] [address] Performed By: #### 5 7021-8 ####[facility] LABCLIA [id number] [place] [address] LABCLIA [id number] [place] [address] [place]#### 76821-6 ####[facility] LABCLIA [id number] [place] [address] RBC FRAGMENTS Few Abnormal None Seen [facility] Comment on above: Order Comment: Speci men Type: BLOOD SPECIMENOrdering Facility: [facility] Address: [address] [place] [address] Performed By: #### 5 7021-8 ####[facility] LABCLIA [id number] [place] [address] LABCLIA [id number] [place] [address] [place]#### 39888-6 ####[facility] LABCLIA [id number] [place] [address] RED CELL MORPH Reviewed: see result s of individual morphologies Normal [facility] Comment on above: Order Comment: Speci men Type: BLOOD SPECIMENOrdering Facility: [facility] Address: [address] [place] [address] Performed By: #### 5 7021-8 ####[facility] LABCLIA [id number] [place] [address] LABCLIA [id number] [place] [address] [place]#### 94698-0 ####[facility] LABIA [id number] [place] [address] WBC (Bld) [#/Vol] 9.07 10*3/uL Normal 3.70-11.00 [facility] Comment on above: Order Comment: Speci men Type: BLOOD SPECIMENOrdering Facility: [facility] Address: [address] [place] [address] Performed By: #### 5 7021-8 ####[facility] LABCLIA [id number] [place] [address] LABCLIA [id number] [place] [address] [place]#### 14584-7 ####[facility] LABIA [id number] [place] [address] CNOVSPon 09-04-2023 OVS Visit (SP) Office ([facility]) ESTEPHANIAYUNIOR ([id number]) 1945 Date Time Provider Department 09/04/23 11:15 AM [facility] During your visit today, we recorded the following information about you: Temperature Pulse Respiration Blood pressure 97.5 degrees 61/minute 18/minute 159/40 Weight 102.3 kg Austin Springer MD 09/04/2023 7:29 PM Signed NAME: Yunior Best CLINIC NO.: [id number] DATE OF SERVICE: September 04, 2023 (Meghann) Referring Provider: Dr. Adonay Zhang ([facility]) Consultation requested by Dr. Zhang for an opinion regarding Mr. Yunior Best, and my final recommendations will be communicated back to the requesting physician by way of shared medical record or letter via US mail. Additional Clinicians involved in Yunior Best's care: DIAGNOSIS: Iron deficiency anemia ASSESSMENT: [...] MCV: 69.6 Initial Visit, September 04, 2023: Yunior Best presents today with his daughter, Heidi, [...] colonoscopy. 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 - REVIEW [...] on 09/04/2023) (more content not included)... Normal [facility] Samira 09-04-2023 AMILCAR Telephone ([facility]) YUNIOR BEST ([id number]) 1945 M Date Time Provider Department 09/04/23 [place] SPR[facility] During your visit today, we recorded the following information about you: MargierajeevZoe 09/04/2023 12:32 PM Signed Triage: Please call daughterHeidi with results. Thanks! Ricardo West RN 09/05/2023 11:34 AM Signed Franco: please verify need to continue with IV iron, as ordered. Pt is currently scheduled 09/14, , . KASH Chowdhury Vivek, MD 09/05/2023 12:48 PM Signed Most definitely Ricardo Lorenzana RN 09/05/2023 1:05 PM Signed Daughter updated and appts verified. Ricardo Lorenzana RN Allergies As of Date: 09/04/2023 (Not on File) Date Reviewed: 09/04/2023 Reviewed by: Sonia Caldera - Fully Assessed Reason for Visit: Results [...] obesity (HCC) [E66.01] 09/04/2023 Encounter Status:Closed by RICARDO LORENZANA on 09/05/23 Normal [facility] Comprehensive metabolic 2000 panelon 09-04-2023 Albumin [Mass/Vol] 4.7 g/dL 3.9 - 4.9 g/dL [facility] ALP [Catalytic activity/Vol] 75 U/L 38 - 113 U/L [facility] ALT [Catalytic activity/Vol] 13 U/L 10 - 54 U/L [facility] Anion gap [Moles/Vol] 12 mmol/L 9 - 18 mmol/L [facility] AST [Catalytic activity/Vol] 17 U/L 14 - 40 U/L [facility] Bilirubin [Mass/Vol] 0.2 mg/dL 0.2 - 1 .3 mg/dL [facility] Calcium [Mass/Vol] 9.9 mg/dL 8.5 - 10. 2 mg/dL [facility] Chloride [Moles/Vol] 101 mmol/L 97 - 10 5 mmol/L [facility] CO2 [Moles/Vol] 27 mmol/L 22 - 30 mmol/L [facility] Creatinine [Mass/Vol] 0.99 mg/dL 0.73 - 1.22 mg/dL [facility] Estimated Glomerular Filtration Rate 78 mL/min/1.73m >=60 mL/min/1.73m [facility] Glucose [Mass/Vol] 192 mg/dL High 74 - 99 mg/dL [facility] Potassium [Moles/Vol] 3.9 mmol/L 3.7 - 5.1 mmol/L [facility] Protein [Mass/Vol] 7.3 g/dL 6.3 - 8.0 g/dL [facility] Sodium [Moles/Vol] 140 mmol/L 136 - 144 mmol/L [facility] Urea nitrogen [Mass/Vol] 20 mg/dL 9 - 24 mg/dL [facility] Albumin [Mass/Vol] 4.7 g/dL Normal 3.9-4.9 [facility] Comment on above: Order Comment: Speci men Type: BLOOD SPECIMEN Ordering Facility: [facility] Address: [address] [place] [address] Performed By: #### 2 4323-8 #### [facility] CLIA [id number] [address] [place] [address] ALP [Catalytic activity/Vol] 75 U/L Normal 38-113 [facility] Comment on above: Order Comment: Speci men Type: BLOOD SPECIMEN Ordering Facility: [facility] Address: [address] [id number] Performed By: #### 2 4323-8 #### [facility] CLIA [id number] [address] [place] [address] ALT [Catalytic activity/Vol] 13 U/L Normal 10-54 [facility] Comment on above: Order Comment: Speci men Type: BLOOD SPECIMEN Ordering Facility: [facility] Address: [address] [place] [address] Performed By: #### 2 4323-8 #### [facility] CLIA [id number] [address] [place] [address] Anion gap [Moles/Vol] 12 mmol/L Normal 9-18 [facility] Comment on above: Order Comment: Speci men Type: BLOOD SPECIMEN Ordering Facility: [facility] Address: [address] [place], [place] [address] Performed By: #### 2 4323-8 #### [facility] CLIA [id number] [address] [place] [address] AST [Catalytic activity/Vol] 17 U/L Normal 14-40 [facility] Comment on above: Order Comment: Speci men Type: BLOOD SPECIMEN Ordering Facility: [facility] Address: [address] [place], [place] [address] Performed By: #### 2 4323-8 #### [facility] CLIA [id number] [address] [place] [address] Bilirubin [Mass/Vol] 0.2 mg/dL Normal 0.2-1.3 [facility] Comment on above: Order Comment: Speci men Type: BLOOD SPECIMEN Ordering Facility: [facility] Address: [address] [place] [address] Performed By: #### 2 4323-8 #### [facility] CLIA [id number] [address] [place] [address] Calcium [Mass/Vol] 9.9 mg/dL Normal 8.5-10.2 [facility] Comment on above: Order Comment: Speci men Type: BLOOD SPECIMEN Ordering Facility: [facility] Address: [address] [place] [address] Performed By: #### 2 4323-8 #### [facility] CLIA [id number] [address] [place] [address] Chloride [Moles/Vol] 101 mmol/L Normal 97-105 [facility] Comment on above: Order Comment: Speci men Type: BLOOD SPECIMEN Ordering Facility: [facility] Address: [address] [place] [address] Performed By: #### 2 4323-8 #### [facility] CLIA [id number] [address] [place] [address] CO2 [Moles/Vol] 27 mmol/L Normal 22-30 [facility] Comment on above: Order Comment: Speci men Type: BLOOD SPECIMEN Ordering Facility: [facility] Address: [address] [place] [address] Performed By: #### 2 4323-8 #### [facility] CLIA [id number] [address] [place] [address] Creatinine [Mass/Vol] 0.99 mg/dL Normal 0.73-1.22 [facility] Comment on above: Order Comment: Speci men Type: BLOOD SPECIMEN Ordering Facility: [facility] Address: [address] [place] [address] Performed By: #### 2 4323-8 #### [facility] CLIA [id number] [address] [place] [address] Creatinine and Glomerular filtration rate.predicted panel (S/P/Bld) 78 mL/min/1.73m??? Normal >=60 [facility] Comment on above: Order Comment: Jono graves Type: BLOOD SPECIMEN Ordering Facility: [facility] Address: [address] [place] [address] Result Comment: Odette mated Glomerular Filtration Rate [...] #### [facility] CLIA [id number] [address] [place] [address] Glucose [Mass/Vol] 192 mg/dL High 74-99 [facility] Comment on above: Order Comment: Jono graves Type: BLOOD SPECIMEN Ordering Facility: [facility] Address: [address] [place] [address] Result Comment: The [place] [employer] (ADA) provides guidance for cutoff [...] Standards of Medical Care in Diabetes 2016, [place] [employer]. Diabetes Care. 2016.39(Suppl 1). Performed By: #### 2 4323-8 #### [facility] CLIA [id number] [address] [place] [address] Potassium [Moles/Vol] 3.9 mmol/L Normal 3.7-5.1 [facility] Comment on above: Order Comment: Speci men Type: BLOOD SPECIMEN Ordering Facility: [facility] Address: [address] [place] [address] Performed By: #### 2 4323-8 #### [facility] CLIA [id number] [address] [place] [address] Protein [Mass/Vol] 7.3 g/dL Normal 6.3-8.0 [facility] Comment on above: Order Comment: Speci men Type: BLOOD SPECIMEN Ordering Facility: [facility] Address: [address] [id number] Performed By: #### 2 4323-8 #### [facility] CLIA [id number] [address] [place] [address] Sodium [Moles/Vol] 140 mmol/L Normal 136-144 [facility] Comment on above: Order Comment: Speci men Type: BLOOD SPECIMEN Ordering Facility: [facility] Address: [address] [place] [address] Performed By: #### 2 4323-8 #### [facility] CLIA [id number] [address] [place] [address] Urea nitrogen [Mass/Vol] 20 mg/dL Normal 9-24 [facility] Comment on above: Order Comment: Speci men Type: BLOOD SPECIMEN Ordering Facility: [facility] Address: [address] [place] [address] Performed By: #### 2 4323-8 #### [facility] CLIA [id number] [address] [place] [address] Ferritin SerPl-mCncon 2023 Ferritin [Mass/Vol] 8.6 ng/mL Low 30.3-565.7 [facility] Comment on above: Order Comment: Speci men Type: BLOOD SPECIMENOrdering Facility: [facility] Address: [address] [id number] Performed By: #### 2 276-4, 4542-7, 01216-5 ####[facility] [id number] [place] [address] [place] Folate SerPl-mCncon 09-04-19 24 Folate [Mass/Vol] ng/mL Normal >4.7 [facility] Comment on above: Order Comment: Speci men Type: BLOOD SPECIMENOrdering Facility: [facility] Address: [address] [place] [address] Result Comment: A re sult of > 20 ng/mL is not necessarily indicative of a pathologic or treatable condition: it reflects a limitation of the test methodology. Assay reference range: 4.8 to 24.2 ng/mL. Suitable for detection of folate deficiency. Reference: Folate III (Folate III) [package insert V 1.0 [place]ian]. Rika Vast, [place], [place]: May 2015. Performed By: #### 2 284-8, 2132-9 ####[facility] [id number] [place] [address] [place] Haptoglob SerPl-ncon 09-03 Haptoglobin [Mass/Vol] 225 mg/dL Normal 31-238 [facility] Comment on above: Order Comment: Speci men Type: BLOOD SPECIMENOrdering Facility: [facility] Address: [address] [place] [address] Performed By: #### 2 276-4, 4542-7, 02916-5 ####[facility] [id number] [place] [address] [place] Iron and Iron binding capaci ty panelon 09-04-2023 Iron [Mass/Vol] 13 ug/dL Low 41-186 [facility] Comment on above: Order Comment: Speci men Type: BLOOD SPECIMENOrdering Facility: [facility] Address: [address] [place] [address] Performed By: #### 2 276-4, 4542-7, 78524-9 ####[facility] [id number] [place] [address] [place] Iron binding capacity [Mass/Vol] 457 ug/dL High 232-386 [facility] Comment on above: Order Comment: Speci men Type: BLOOD SPECIMENOrdering Facility: [facility] Address: [address] [place] [address] Performed By: #### 2 276-4, 4542-7, 53735-1 ####[facility]CLIA [id number] [place] [address] [place] Iron/TIBC [Molar ratio] 2.8 % Low 15.0-57.0 [facility] Comment on above: Order Comment: Speci men Type: BLOOD SPECIMENOrdering Facility: [facility] Address: [address] [place] [address] Performed By: #### 2 276-4, 4542-7, 34972-1 ####[facility]IA [id number] [place] [address] [place] RETIC COUNTon 09-04-2023 Reticulocytes (Bld) [#/Vol] 0.21796 10*3/uL 0.018 - 0.100 M/uL [facility] Retics #on 09-04-2023 Reticulocytes (Bld) [#/Vol] 0.18125 10*3/uL Normal 0.018-0.100 [facility] Comment on above: Order Comment: Speci men Type: BLOOD SPECIMENOrdering Facility: [facility] Address: [address] [place] [address] Performed By: #### 5 7021-8 ####[facility] [id number] [place], [place] [address]OM[facility]CLIA [id number] [place] [address] [place]#### 52041-2 ####[facility] [id number] [place] [address] Reticulocytes (Bld) [#/Vol]o n 09-04-2023 Reticulocytes/100 RBC (Bld) 1.3 % 0.4 - 2.0 % [facility] Reticulocytes/100 RBC (Bld) 1.3 % Normal 0.4-2.0 [facility] Comment on above: Order Comment: Speci men Type: BLOOD SPECIMENOrdering Facility: [facility] Address: [address] [place] [address] Performed By: #### 5 7021-8 ####[facility]CLIA [id number] [place] [address]CLIA [id number] [place] [address] [place]#### 27081-8 ####[facility]IA [id number] [place] [address] Vit B12 [facility] 024 Cobalamin (Vitamin B12) [Mass/Vol] 618 pg/mL Normal 232-1245 [facility] Comment on above: Order Comment: Speci men Type: BLOOD SPECIMENOrdering Facility: [facility] Address: [address] [place] [address] Performed By: #### 2 284-8, 2132-9 ####[facility] LABCLIA [id number] [place] [address] [place] Consent for Procedure/Surger yon 08-30-2023 Consent for Procedure/Surgery [id number]# 1.00TIFF Normal [facility] Facesheeton 08-30-2023 Facesheet [id number]# 1.00TIFF Normal [facility] Lab Reportson 08-16-2023 Lab Reports [id number]#1 .00TIFF Normal [facility] Physician Referralon 024 Physician Referral [id number]#1 .00TIFF Normal [facility] CBC AUTO DIFFon 10-14-2022 BASO # 0.1 103/ul Normal 0.0-0.1 [facility] Comment on above: Performed By: #### T SH, LIVER, LIPID, BMP, T7 #### [facility] [address] [place] [address] Dr. Roberto Cabral Basophils/100 WBC (Bld) 0.7 % Normal 0.2-2.0 [facility] Comment on above: Performed By: #### T SH, LIVER, LIPID, BMP, T7 #### [facility] [address] [place] [address] Dr. Roberto Cabral EO # 0.5 103/ul Normal 0.0-0.7 [facility] Comment on above: Performed By: #### T SH, LIVER, LIPID, BMP, T7 #### [facility] [address] [place] [address] Dr. Roberto Cabral Eosinophils/100 WBC (Bld) 5.3 % Normal 0.9-7.0 [facility] Comment on above: Performed By: #### T SH, LIVER, LIPID, BMP, T7 #### [facility] [address] [place] [address] Dr. Roberto Cabral Erythrocyte distribution width (RBC) [Ratio] 15.8 % Critically high 11.0-15.0 [facility] Comment on above: Performed By: #### T SH, LIVER, LIPID, BMP, T7 #### [facility] [address] [place] [address] Dr. Roberto Cabral Hematocrit (Bld) [Volume fraction] 34.4 % Critically low 42.0-54.0 [facility] Comment on above: Performed By: #### T SH, LIVER, LIPID, BMP, T7 #### [facility] [address] [place] [address] Dr. Roberto Cabral Hemoglobin (Bld) [Mass/Vol] 10.2 g/dL Critically low 14.0-18.0 [facility] Comment on above: Performed By: #### T SH, LIVER, LIPID, BMP, T7 #### [facility] [address] [address] [address] Roberto Cabral IG # 0.03 10e3/ul Normal 0.00-0.03 [facility] Comment on above: Performed By: #### T SH, LIVER, LIPID, BMP, T7 #### [facility] [address] [place] [address] Dr. Roberto Cabral IG % 0.3 % Normal 0.0-0.5 [facility] Comment on above: Performed By: #### T SH, LIVER, LIPID, BMP, T7 #### [facility] [address] [place] [address] Dr. Roberto Cabral LYMPH # 1.9 103/ul Normal 1.2-3.8 [facility] Comment on above: Performed By: #### T SH, LIVER, LIPID, BMP, T7 #### [facility] [address] [place] [address] Dr. Roberto Cabral Lymphocytes/100 WBC (Bld) 21.0 % Normal 20.5-60.0 [facility] Comment on above: Performed By: #### T SH, LIVER, LIPID, BMP, T7 #### [facility] [address] [address] [address] Roberto Cabral MANUAL DIFF REQ NO Normal [facility] Comment on above: Performed By: #### T SH, LIVER, LIPID, BMP, T7 #### [facility] [address] [place] [address] Dr. Roberto Cabral MCH (RBC) [Entitic mass] 22.7 pg Critically low 25.9-34.0 [facility] Comment on above: Performed By: #### T SH, LIVER, LIPID, BMP, T7 #### [facility] [address] [place] [address] Dr. Roberto Cabral MCHC (RBC) [Mass/Vol] 29.7 g/dL Critically low 29.9-35.2 [facility] Comment on above: Performed By: #### T SH, LIVER, LIPID, BMP, T7 #### [facility] [address] [place] [address] Dr. Roberto Cabral MCV (RBC) [Entitic vol] 76.6 fL Critically low 80.0-94.0 [facility] Comment on above: Performed By: #### T SH, LIVER, LIPID, BMP, T7 #### [facility] [address] [address] [address] Roberto Cabral MONO # 0.9 103/ul Critically high 0.3-0.8 [facility] Comment on above: Performed By: #### T SH, LIVER, LIPID, BMP, T7 #### [facility] [address] [address] [address] Roberto Cabral Monocytes/100 WBC (Bld) 10.0 % Normal 1.7-12.0 [facility] Comment on above: Performed By: #### T SH, LIVER, LIPID, BMP, T7 #### [facility] [address] [place] [address] Dr. Roberto Cabral NEUT # 5.7 103/ul Normal 1.4-6.5 [facility] Comment on above: Performed By: #### T SH, LIVER, LIPID, BMP, T7 #### [facility] [address] [place] [address] Dr. Roberto Cabral Neutrophils/100 WBC (Bld) 62.7 % Normal 43.0-75.0 [facility] Comment on above: Performed By: #### T SH, LIVER, LIPID, BMP, T7 #### [facility] [address] [place] [address] Dr. Roberto Cabral Platelet mean volume (Bld) [Entitic vol] 9.8 fL Normal 9.5-13.5 [facility] Comment on above: Performed By: #### T SH, LIVER, LIPID, BMP, T7 #### [facility] [address] [address] [address] Roberto Cabral PLT 290 103/ul Normal 150-450 [facility] Comment on above: Performed By: #### T SH, LIVER, LIPID, BMP, T7 #### [facility] [address] [place] [address] Dr. Roberto Cabral RBC 4.49 106/ul Critically low 4.70-6.10 [facility] Comment on above: Performed By: #### T SH, LIVER, LIPID, BMP, T7 #### [facility] [address] [address] [address] Roberto Cabral WBC 9.1 103/ul Normal 4.0-11.0 [facility] Comment on above: Performed By: #### T SH, LIVER, LIPID, BMP, T7 #### [facility] [address] [address] [address] Roberto Cabral FREE THYROXINE INDEX T7on FTI 2.73 Normal 1.30-4.50 [facility] Comment on above: Performed By: #### T SH, LIVER, LIPID, BMP, T7 #### [facility] [address] [address] [address] Roberto Cabral T3U 35.0 % Normal 33.0-40.0 [facility] Comment on above: Performed By: #### T SH, LIVER, LIPID, BMP, T7 #### [facility] [address] [address] [address] Roberto Cabral T4 [Mass/Vol] 7.80 ug/dL Normal 4.50-12.10 [facility] Comment on above: Performed By: #### T SH, LIVER, LIPID, BMP, T7 #### [facility] [address] [place] [address] Dr. Roberto Cabral GLYCOHEMOGLOBIN A1Con 2022 ADA RECOMMENDATION SEE BELOW Normal [facility] Comment on above: Result Comment: ADA RECOMMENDED LIMIT 4.0 - 6.0 ADA THERAPEUTIC TARGET < 7.0 ACTION SUGGESTED > 7.0 Performed By: #### A 1C #### [facility] [address] [place] [address] Dr. Roberto Cabral Glucose [Mass/Vol] 126 mg/dL Normal [facility] Comment on above: Performed By: #### A 1C #### [facility] [address] [place] [address] Dr. Roberto Cabral HbA1c (Bld) [Mass fraction] 6.0 % Normal 4.5-6.2 [facility] Comment on above: Performed By: #### A 1C #### [facility] [address] [address] [address] Roberto Cabral LIPID PROFILEon 10-14-2022 CHOL-HDL RATIO NORM SEE BELOW Normal [facility] Comment on above: Result Comment: 3.3 - 4.4 LOW RISK 4.4 - 7.1 AVERAGE RISK 7.1 - 11.0 MODERATE RISK >11.0 HIGH RISK Performed By: #### T SH, LIVER, LIPID, BMP, T7 #### [facility] [address] [address] [address] Roberto Carbal Cholesterol [Mass/Vol] 129 mg/dL Normal <=200 [facility] Comment on above: Performed By: #### T SH, LIVER, LIPID, BMP, T7 #### [facility] [address] [address] [address] Roberto Cabral Cholesterol in HDL [Mass/Vol] 45 mg/dL Normal 40-60 [facility] Comment on above: Performed By: #### T SH, LIVER, LIPID, BMP, T7 #### [facility] [address] [address] [address] Roberto Cabral Cholesterol in LDL [Mass/Vol] 62.4 mg/dL Normal [facility] Comment on above: Performed By: #### T SH, LIVER, LIPID, BMP, T7 #### [facility] [address] [address] [address] Roberto Cabral Cholesterol.total/Ch olesterol in HDL [Mass ratio] 2.9 {ratio} Normal [facility] Comment on above: Performed By: #### T SH, LIVER, LIPID, BMP, T7 #### [facility] [address] [address] [address] Roberto Cabral HDL NORMAL > or = 60 mg/dl - LO W CARDIOVASCULAR RISK <40 mg/dl - HIGH CARDIOVASCULAR RISK Normal [facility] Comment on above: Performed By: #### T SH, LIVER, LIPID, BMP, T7 #### [facility] [address] [address] [address] Roberto Cabral LDL CALC NORMAL SEE BELOW Normal [facility] Comment on above: Result Comment: <100 mg/dl OPTIMAL 100 - 129 mg/dl NEAR OR ABOVE OPTIMAL 130 - 159 mg/dl BORDERLINE HIGH 160 - 189 mg/dl HIGH >190 mg/dl VERY HIGH Performed By: #### T SH, LIVER, LIPID, BMP, T7 #### [facility] [address] [address] [address] Roberto Cabral Triglyceride [Mass/Vol] 108 mg/dL Normal <=150 [facility] Comment on above: Performed By: #### T SH, LIVER, LIPID, BMP, T7 #### [facility] [address] [address] [address] Roberto Cabral VLDL CALC 21.6 mg/dL Normal [facility] Comment on above: Performed By: #### T SH, LIVER, LIPID, BMP, T7 #### [facility] [address] [address] [address] Roberto Cabral LIVER PROFILEon 10-14-2022 Albumin [Mass/Vol] 3.6 g/dL Normal 3.4-5.0 [facility] Comment on above: Performed By: #### T SH, LIVER, LIPID, BMP, T7 #### [facility] [address] [address] [address] Roberto Cabral Albumin/Globulin [Mass ratio] 1.0 {ratio} Normal [facility] Comment on above: Performed By: #### T SH, LIVER, LIPID, BMP, T7 #### [facility] [address] [address] [address] Roberto Cabral ALP [Catalytic activity/Vol] 80 U/L Normal 46-116 [facility] Comment on above: Performed By: #### T SH, LIVER, LIPID, BMP, T7 #### [facility] [address] [address] [address] Roberto Cabral ALT [Catalytic activity/Vol] 21 U/L Normal 16-63 [facility] Comment on above: Performed By: #### T SH, LIVER, LIPID, BMP, T7 #### [facility] [address] [address] [address] Roberto Cabral AST [Catalytic activity/Vol] 14 U/L Critically low 15-37 [facility] Comment on above: Performed By: #### T SH, LIVER, LIPID, BMP, T7 #### [facility] [address] [address] [address] Roberto Cabral BILI, CONJUGATED 0.1 mg/dL Normal 0.0-0.2 [facility] Comment on above: Performed By: #### T SH, LIVER, LIPID, BMP, T7 #### [facility] [address] [address] [address] Roberto Cabral Bilirubin [Mass/Vol] 0.2 mg/dL Normal 0.2-1.0 [facility] Comment on above: Performed By: #### T SH, LIVER, LIPID, BMP, T7 #### [facility] [address] [address] [address] Roberto Cabral Globulin (S) [Mass/Vol] 3.6 g/dL Normal [facility] Comment on above: Performed By: #### T SH, LIVER, LIPID, BMP, T7 #### [facility] [address] [place] [address] Dr. Roberto Cabral Protein [Mass/Vol] 7.2 g/dL Normal 6.4-8.2 [facility] Comment on above: Performed By: #### T SH, LIVER, LIPID, BMP, T7 #### [facility] [address] [place] [address] Dr. Roebrto Cabral PROF CHEM 8 (BAS METB)on Anion gap [Moles/Vol] 13.9 mmol/L Normal [facility] Comment on above: Performed By: #### T SH, LIVER, LIPID, BMP, T7 #### [facility] [address] [place] [address] Dr. Roberto Cabral Calcium [Mass/Vol] 9.2 mg/dL Normal 8.5-10.1 [facility] [place] Comment on above: Performed By: #### T SH, LIVER, LIPID, BMP, T7 #### [facility] [address] [place] [address] Dr. Roberto Cabral Chloride [Moles/Vol] 110 mmol/L Critically high 98-107 [facility] Comment on above: Performed By: #### T SH, LIVER, LIPID, BMP, T7 #### [facility] [address] [address] [address] Roberto Cabral CO2 [Moles/Vol] 26.2 mmol/L Normal 21.0-32.0 [facility] Comment on above: Performed By: #### T SH, LIVER, LIPID, BMP, T7 #### [facility] [address] [place] [address] Dr. Roberto Cabral Creatinine [Mass/Vol] 1.02 mg/dL Normal 0.70-1.30 [facility] Comment on above: Performed By: #### T SH, LIVER, LIPID, BMP, T7 #### [facility] [address] [place] [address] Dr. Roberto Cabral EGFR-AF COSTA RICAN >60 Normal >=60 [facility] Comment on above: Performed By: #### T SH, LIVER, LIPID, BMP, T7 #### [facility] [address] [place] [address] Dr. Roberto Cabral EGFR-NON AF COSTA RICAN >60 Normal >=60 [facility] Comment on above: Performed By: #### T SH, LIVER, LIPID, BMP, T7 #### [facility] [address] [place] [address] Dr. Roberto Cabral Glucose [Mass/Vol] 120 mg/dL Critically high 74-106 [facility] Comment on above: Performed By: #### T SH, LIVER, LIPID, BMP, T7 #### [facility] [address] [place] [address] Dr. Roberto Cabral Potassium [Moles/Vol] 4.1 mmol/L Normal 3.5-5.1 [facility] Comment on above: Performed By: #### T SH, LIVER, LIPID, BMP, T7 #### [facility] [address] [place] [address] Dr. Roberto Cabral Sodium [Moles/Vol] 146 mmol/L Critically high 136-145 [facility] Comment on above: Performed By: #### T SH, LIVER, LIPID, BMP, T7 #### [facility] [address] [place] [address] Dr. Roberto Cabral Urea nitrogen [Mass/Vol] 26.0 mg/dL Critically high 7.0-18.0 [facility] Comment on above: Performed By: #### T SH, LIVER, LIPID, BMP, T7 #### [facility] [address] [place] [address] Dr. Roberto Cabral Urea nitrogen/Creatinine [Mass ratio] 25.5 mg/mg Normal [facility] Comment on above: Performed By: #### T SH, LIVER, LIPID, BMP, T7 #### [facility] [address] [place] [address] Dr. Roberto Cabral TSHon 10-14-2022 TSH 1.674 uIU/mL Normal 0.358-3.740 [facility] Comment on above: Performed By: #### T SH, LIVER, LIPID, BMP, T7 #### [facility] [address] [place] [address] Dr. Roberto Cabral [facility]-01 SARS-CoV-2 (COVID-19) RNA JOSÉ+probe Ql (Unsp spec) Detected Critically abnormal NOT DETECTED [facility] [...] for this test is supported by the [place] of Health and Human Service's (HHS's) declaration [...] T SH, LIVER, LIPID, BMP, T7 #### [facility] [address] [place] [address] Dr. Roberto Cabral PROF 14(COMP METB)on 022 Albumin [Mass/Vol] 3.3 g/dL Critically low 3.4-5.0 [facility] Comment on above: Performed By: #### T SH, LIVER, LIPID, BMP, T7 #### [facility] [address] [address] [address] Roberto Cabral Albumin/Globulin [Mass ratio] 1.0 {ratio} Normal [facility] Comment on above: Performed By: #### T SH, LIVER, LIPID, BMP, T7 #### [facility] [address] [address] [address] Roberto Cabral ALP [Catalytic activity/Vol] 95 U/L Normal 46-116 [facility] Comment on above: Performed By: #### T SH, LIVER, LIPID, BMP, T7 #### [facility] [address] [place] [address] Dr. Roberto Cabral ALT [Catalytic activity/Vol] 22 U/L Normal 16-63 [facility] Comment on above: Performed By: #### T SH, LIVER, LIPID, BMP, T7 #### [facility] [address] [address] [address] Roberto Cabral Anion gap [Moles/Vol] 14.0 mmol/L Normal [facility] Comment on above: Performed By: #### T SH, LIVER, LIPID, BMP, T7 #### [facility] [address] [address] [address] Roberot Cabral AST [Catalytic activity/Vol] 12 U/L Critically low 15-37 [facility] Comment on above: Performed By: #### T SH, LIVER, LIPID, BMP, T7 #### [facility] [address] [address] [address] Roberto Cabral Bilirubin [Mass/Vol] 0.2 mg/dL Normal 0.2-1.0 [facility] Comment on above: Performed By: #### T SH, LIVER, LIPID, BMP, T7 #### [facility] [address] [address] [address] Roberto Cabral Calcium [Mass/Vol] 8.6 mg/dL Normal 8.5-10.1 [facility] Comment on above: Performed By: #### T SH, LIVER, LIPID, BMP, T7 #### [facility] [address] [address] [address] Roberto Cabral Chloride [Moles/Vol] 110 mmol/L Critically high 98-107 [facility] Comment on above: Performed By: #### T SH, LIVER, LIPID, BMP, T7 #### [facility] [address] [place] [address] Dr. Roberto Cabral CO2 [Moles/Vol] 22.6 mmol/L Normal 21.0-32.0 [facility] Comment on above: Performed By: #### T SH, LIVER, LIPID, BMP, T7 #### [facility] [address] [place] [address] Dr. Roberto Cabral Creatinine [Mass/Vol] 1.05 mg/dL Normal 0.70-1.30 [facility] Comment on above: Performed By: #### T SH, LIVER, LIPID, BMP, T7 #### [facility] [address] [place] [address] Dr. Roberto Cabral EGFR-AF COSTA RICAN >60 Normal >=60 [facility] Comment on above: Performed By: #### T SH, LIVER, LIPID, BMP, T7 #### [facility] [address] [place] [address] Dr. Roberto Cabral EGFR-NON AF COSTA RICAN >60 Normal >=60 [facility] Comment on above: Performed By: #### T SH, LIVER, LIPID, BMP, T7 #### [facility] [address] [place] [address] Dr. Roberto Cabral Globulin (S) [Mass/Vol] 3.2 g/dL Normal [facility] Comment on above: Performed By: #### T SH, LIVER, LIPID, BMP, T7 #### [facility] [address] [place] [address] Dr. Roberto Cabral Glucose [Mass/Vol] 172 mg/dL Critically high 74-106 [facility] Comment on above: Performed By: #### T SH, LIVER, LIPID, BMP, T7 #### [facility] [address] [place] [address] Dr. Roberto Cabral Potassium [Moles/Vol] 4.6 mmol/L Normal 3.5-5.1 [facility] Comment on above: Performed By: #### T SH, LIVER, LIPID, BMP, T7 #### [facility] [address] [place] [address] Dr. Roberto Cabral Protein [Mass/Vol] 6.5 g/dL Normal 6.4-8.2 [facility] [place] Comment on above: Performed By: #### T SH, LIVER, LIPID, BMP, T7 #### [facility] [address] [place] [address] Dr. Roberto Cabral Sodium [Moles/Vol] 142 mmol/L Normal 136-145 [facility] [place] Comment on above: Performed By: #### T SH, LIVER, LIPID, BMP, T7 #### [facility] [address] [place] [address] Dr. Roberto Cabral Urea nitrogen [Mass/Vol] 14.0 mg/dL Normal 7.0-18.0 [facility] Comment on above: Performed By: #### T SH, LIVER, LIPID, BMP, T7 #### [facility] [address] [place] [address] Dr. Roberto Cabral Urea nitrogen/Creatinine [Mass ratio] 13.3 mg/mg Normal [facility] Comment on above: Performed By: #### T SH, LIVER, LIPID, BMP, T7 #### [facility] [address] [place] [address] Dr. Roberto Cabral CBC AUTO DIFFon 12-11-2021 BASO # 0.1 103/ul Normal 0.0-0.1 [facility] Comment on above: Performed By: #### T SH, LIVER, LIPID, BMP, T7 #### [facility] [address] [place] [address] Dr. Roberto Cabral Basophils/100 WBC (Bld) 0.3 % Normal 0.2-2.0 [facility] Comment on above: Performed By: #### T SH, LIVER, LIPID, BMP, T7 #### [facility] [address] [place] [address] Dr. Roberto Cabral EO # 0.7 103/ul Normal 0.0-0.7 [facility] Comment on above: Performed By: #### T SH, LIVER, LIPID, BMP, T7 #### [facility] [address] [place] [address] Dr. Roberto Cabral Eosinophils/100 WBC (Bld) 4.5 % Normal 0.9-7.0 [facility] Comment on above: Performed By: #### T SH, LIVER, LIPID, BMP, T7 #### [facility] [address] [place] [address] Dr. Roberto Cabral Erythrocyte distribution width (RBC) [Ratio] 15.7 % Critically high 11.0-15.0 [facility] Comment on above: Performed By: #### T SH, LIVER, LIPID, BMP, T7 #### [facility] [address] [place] [address] Dr. Roberto Cabral Hematocrit (Bld) [Volume fraction] 33.3 % Critically low 42.0-54.0 [facility] Comment on above: Performed By: #### T SH, LIVER, LIPID, BMP, T7 #### [facility] [address] [place] [address] Dr. Roberto Cabral Hemoglobin (Bld) [Mass/Vol] 10.3 g/dL Critically low 14.0-18.0 [facility] Comment on above: Performed By: #### T SH, LIVER, LIPID, BMP, T7 #### [facility] [address] [place] [address] Dr. Roberto Cabral IG # 0.08 10e3/ul Critically high 0.00-0.03 [facility] Comment on above: Performed By: #### T SH, LIVER, LIPID, BMP, T7 #### [facility] [address] [place] [address] Dr. Roberto Cabral IG % 0.5 % Normal 0.0-0.5 [facility] Comment on above: Performed By: #### T SH, LIVER, LIPID, BMP, T7 #### [facility] [address] [place] [address] Dr. Roberto Cabral LYMPH # 1.3 103/ul Normal 1.2-3.8 [facility] Comment on above: Performed By: #### T SH, LIVER, LIPID, BMP, T7 #### [facility] [address] [place] [address] Dr. Roberto Cabral Lymphocytes/100 WBC (Bld) 8.4 % Critically low 20.5-60.0 [facility] Comment on above: Performed By: #### T SH, LIVER, LIPID, BMP, T7 #### [facility] [address] [place] [address] Dr. Roberto Cabral MANUAL DIFF REQ NO Normal [facility] Comment on above: Performed By: #### T SH, LIVER, LIPID, BMP, T7 #### [facility] [address] [place] [address] Dr. Roberto Cabral MCH (RBC) [Entitic mass] 27.9 pg Normal 25.9-34.0 [facility] Comment on above: Performed By: #### T SH, LIVER, LIPID, BMP, T7 #### [facility] [address] [place] [address] Dr. Roberto Cabral MCHC (RBC) [Mass/Vol] 30.9 g/dL Normal 29.9-35.2 [facility] Comment on above: Performed By: #### T SH, LIVER, LIPID, BMP, T7 #### [facility] [address] [place] [address] Dr. Roberto Cabral MCV (RBC) [Entitic vol] 90.2 fL Normal 80.0-94.0 [facility] Comment on above: Performed By: #### T SH, LIVER, LIPID, BMP, T7 #### [facility] [address] [place] [address] Dr. Roberto Cabral MONO # 1.4 103/ul Critically high 0.3-0.8 [facility] Comment on above: Performed By: #### T SH, LIVER, LIPID, BMP, T7 #### [facility] [address] [place] [address] Dr. Roberto Cabral Monocytes/100 WBC (Bld) 8.9 % Normal 1.7-12.0 [facility] Comment on above: Performed By: #### T SH, LIVER, LIPID, BMP, T7 #### [facility] [address] [address] [address] Roberto Cabral NEUT # 12.0 103/ul Critically high 1.4-6.5 [facility] Comment on above: Performed By: #### T SH, LIVER, LIPID, BMP, T7 #### [facility] [address] [address] [address] Roberto Cabral Neutrophils/100 WBC (Bld) 77.4 % Critically high 43.0-75.0 [facility] Comment on above: Performed By: #### T SH, LIVER, LIPID, BMP, T7 #### [facility] [address] [address] [address] Roberto Cabral Platelet mean volume (Bld) [Entitic vol] 10.3 fL Normal 9.5-13.5 [facility] Comment on above: Performed By: #### T SH, LIVER, LIPID, BMP, T7 #### [facility] [address] [address] [address] Roberto Cabral PLT 286 103/ul Normal 150-450 [facility] Comment on above: Performed By: #### T SH, LIVER, LIPID, BMP, T7 #### [facility] [address] [address] [address] Roberto Cabral RBC 3.69 106/ul Critically low 4.70-6.10 [facility] Comment on above: Performed By: #### T SH, LIVER, LIPID, BMP, T7 #### [facility] [address] [address] [address] Roberto Cabral WBC 15.4 103/ul Critically high 4.0-11.0 [facility] Comment on above: Performed By: #### T SH, LIVER, LIPID, BMP, T7 #### [facility] [address] [address] [address] Roberto Cabral POINT OF CARE GLUCOSEon 06-1 1-2022 Glucose [Mass/Vol] 122 mg/dL Critically high 74-106 [facility] Comment on above: Performed By: #### T SH, LIVER, LIPID, BMP, T7 #### [facility] [address] [address] [address] Roberto Cabral PROF 14(COMP METB)on 022 Albumin [Mass/Vol] 2.8 g/dL Critically low 3.4-5.0 [facility] Comment on above: Performed By: #### T SH, LIVER, LIPID, BMP, T7 #### [facility] [address] [address] [address] Roberto Cabral Albumin/Globulin [Mass ratio] 1.0 {ratio} Normal [facility] Comment on above: Performed By: #### T SH, LIVER, LIPID, BMP, T7 #### [facility] [address] [place] [address] Dr. Roberto Cabral ALP [Catalytic activity/Vol] 66 U/L Normal 46-116 [facility] Comment on above: Performed By: #### T SH, LIVER, LIPID, BMP, T7 #### [facility] [address] [place] [address] Dr. Roberto Cabral ALT [Catalytic activity/Vol] 15 U/L Critically low 16-63 [facility] Comment on above: Performed By: #### T SH, LIVER, LIPID, BMP, T7 #### [facility] [address] [address] [address] Roberto Cabral Anion gap [Moles/Vol] 15.2 mmol/L Normal [facility] Comment on above: Performed By: #### T SH, LIVER, LIPID, BMP, T7 #### [facility] [address] [address] [address] Roberto Cabral AST [Catalytic activity/Vol] 15 U/L Normal 15-37 [facility] Comment on above: Performed By: #### T SH, LIVER, LIPID, BMP, T7 #### [facility] [address] [address] [address] Roberto Cabral Bilirubin [Mass/Vol] 0.2 mg/dL Normal 0.2-1.0 [facility] Comment on above: Performed By: #### T SH, LIVER, LIPID, BMP, T7 #### [facility] [address] [address] [address] Roberto Cabral Calcium [Mass/Vol] 8.4 mg/dL Critically low 8.5-10.1 Th e [facility] Comment on above: Performed By: #### T SH, LIVER, LIPID, BMP, T7 #### [facility] [address] [place] [address] Dr. Roberto Cabral Chloride [Moles/Vol] 114 mmol/L Critically high 98-107 [facility] Comment on above: Performed By: #### T SH, LIVER, LIPID, BMP, T7 #### [facility] [address] [place] [address] Dr. Roberto Cabral CO2 [Moles/Vol] 17.2 mmol/L Critically low 21.0-32.0 [facility] Comment on above: Performed By: #### T SH, LIVER, LIPID, BMP, T7 #### [facility] [address] [place] [address] Dr. Roberto Cabral Creatinine [Mass/Vol] 1.84 mg/dL Critically high 0.70-1.30 [facility] Comment on above: Performed By: #### T SH, LIVER, LIPID, BMP, T7 #### [facility] [address] [place] [address] Dr. Roberto Cabral EGFR-AF COSTA RICAN 44 mL/min/1.73m2 Critically low >=60 [facility] Comment on above: Performed By: #### T SH, LIVER, LIPID, BMP, T7 #### [facility] [address] [place] [address] Dr. Roberto Cabral EGFR-NON AF COSTA RICAN 36 mL/min/1.73m2 Critically low >=60 [facility] Comment on above: Performed By: #### T SH, LIVER, LIPID, BMP, T7 #### [facility] [address] [place] [address] Dr. Roberto Cabral Globulin (S) [Mass/Vol] 2.9 g/dL Normal [facility] Comment on above: Performed By: #### T SH, LIVER, LIPID, BMP, T7 #### [facility] [address] [address] [address] Roberto Cabral Glucose [Mass/Vol] 120 mg/dL Critically high 74-106 [facility] Comment on above: Performed By: #### T SH, LIVER, LIPID, BMP, T7 #### [facility] [address] [address] [address] Roberto Cabral Potassium [Moles/Vol] 5.4 mmol/L Critically high 3.5-5.1 [facility] Comment on above: Performed By: #### T SH, LIVER, LIPID, BMP, T7 #### [facility] [address] [place] [address] Dr. Roberto Cabral Protein [Mass/Vol] 5.7 g/dL Critically low 6.4-8.2 [facility] Comment on above: Performed By: #### T SH, LIVER, LIPID, BMP, T7 #### [facility] [address] [address] [address] Roberto Cabral Sodium [Moles/Vol] 141 mmol/L Normal 136-145 [facility] Comment on above: Performed By: #### T SH, LIVER, LIPID, BMP, T7 #### [facility] [address] [place] [address] Dr. Roberto Cabral Urea nitrogen [Mass/Vol] 56.0 mg/dL Critically high 7.0-18.0 [facility] Comment on above: Performed By: #### T SH, LIVER, LIPID, BMP, T7 #### [facility] [address] [place] [address] Dr. Roberto Cabral Urea nitrogen/Creatinine [Mass ratio] 30.4 mg/mg Normal [facility] Comment on above: Performed By: #### T SH, LIVER, LIPID, BMP, T7 #### [facility] [address] [place] [address] Dr. Roberto Cabral PROF CHEM 8 (BAS METB)on Anion gap [Moles/Vol] 13.3 mmol/L Normal [facility] Comment on above: Performed By: #### T SH, LIVER, LIPID, BMP, T7 #### [facility] [address] [address] [address] Roberto Cabral Calcium [Mass/Vol] 8.3 mg/dL Critically low 8.5-10.1 Th e [facility] Comment on above: Performed By: #### T SH, LIVER, LIPID, BMP, T7 #### [facility] [address] [address] [address] Roberto Cabral Chloride [Moles/Vol] 113 mmol/L Critically high 98-107 [facility] Comment on above: Performed By: #### T SH, LIVER, LIPID, BMP, T7 #### [facility] [address] [place] [address] Dr. Roberto Cabral CO2 [Moles/Vol] 19.4 mmol/L Critically low 21.0-32.0 [facility] Comment on above: Performed By: #### T SH, LIVER, LIPID, BMP, T7 #### [facility] [address] [place] [address] Dr. Roberto Cabrla Creatinine [Mass/Vol] 1.49 mg/dL Critically high 0.70-1.30 [facility] Comment on above: Performed By: #### T SH, LIVER, LIPID, BMP, T7 #### [facility] [address] [place] [address] Dr. Roberto Cbaral EGFR-AF COSTA RICAN 56 mL/min/1.73m2 Critically low >=60 [facility] Comment on above: Performed By: #### T SH, LIVER, LIPID, BMP, T7 #### [facility] [address] [place] [address] Dr. Roberto Cabral EGFR-NON AF COSTA RICAN 46 mL/min/1.73m2 Critically low >=60 [facility] Comment on above: Performed By: #### T SH, LIVER, LIPID, BMP, T7 #### [facility] [address] [place] [address] Dr. Roberto Cabral Glucose [Mass/Vol] 142 mg/dL Critically high 74-106 [facility] Comment on above: Performed By: #### T SH, LIVER, LIPID, BMP, T7 #### [facility] [address] [place] [address] Dr. Roberto Cabral Potassium [Moles/Vol] 5.7 mmol/L Critically high 3.5-5.1 [facility] Comment on above: Performed By: #### T SH, LIVER, LIPID, BMP, T7 #### [facility] [address] [place] [address] Dr. Roberto Cabral Sodium [Moles/Vol] 140 mmol/L Normal 136-145 [facility] Comment on above: Performed By: #### T SH, LIVER, LIPID, BMP, T7 #### [facility] [address] [place] [address] Dr. Roberto Cabral Urea nitrogen [Mass/Vol] 46.0 mg/dL Critically high 7.0-18.0 [facility] Comment on above: Performed By: #### T SH, LIVER, LIPID, BMP, T7 #### [facility] [address] [place] [address] Dr. Roberto Cabral Urea nitrogen/Creatinine [Mass ratio] 30.9 mg/mg Normal [facility] Comment on above: Performed By: #### T SH, LIVER, LIPID, BMP, T7 #### [facility] [address] [place] [address] Dr. Roberto Cabral BNPon 12-10-2021 Natriuretic peptide B (Bld) [Mass/Vol] 167.0 pg/mL Normal <=1,800.0 [facility] Comment on above: Performed By: #### T SH, LIVER, LIPID, BMP, T7 #### [facility] [address] [place] [address] Dr. Roberto Cabral CBC AUTO DIFFon 12-10-2021 BASO # 0.1 103/ul Normal 0.0-0.1 [facility] Comment on above: Performed By: #### T SH, LIVER, LIPID, BMP, T7 #### [facility] [address] [place] [address] Dr. Roberto Cabral Basophils/100 WBC (Bld) 0.3 % Normal 0.2-2.0 [facility] Comment on above: Performed By: #### T SH, LIVER, LIPID, BMP, T7 #### [facility] [address] [address] [address] Roberto Cabral EO # 0.4 103/ul Normal 0.0-0.7 [facility] Comment on above: Performed By: #### T SH, LIVER, LIPID, BMP, T7 #### [facility] [address] [address] [address] Roberto Cabral Eosinophils/100 WBC (Bld) 2.6 % Normal 0.9-7.0 [facility] Comment on above: Performed By: #### T SH, LIVER, LIPID, BMP, T7 #### [facility] [address] [place] [address] Dr. Roberto Cabral Erythrocyte distribution width (RBC) [Ratio] 15.7 % Critically high 11.0-15.0 [facility] Comment on above: Performed By: #### T SH, LIVER, LIPID, BMP, T7 #### [facility] [address] [place] [address] Dr. Roberto Cabral Hematocrit (Bld) [Volume fraction] 36.1 % Critically low 42.0-54.0 [facility] Comment on above: Performed By: #### T SH, LIVER, LIPID, BMP, T7 #### [facility] [address] [place] [address] Dr. Roberto Cabral Hemoglobin (Bld) [Mass/Vol] 11.5 g/dL Critically low 14.0-18.0 [facility] Comment on above: Performed By: #### T SH, LIVER, LIPID, BMP, T7 #### [facility] [address] [place] [address] Dr. Roberto Cabral IG # 0.07 10e3/ul Critically high 0.00-0.03 [facility] Comment on above: Performed By: #### T SH, LIVER, LIPID, BMP, T7 #### [facility] [address] [place] [address] Dr. Roberto Cabral IG % 0.4 % Normal 0.0-0.5 The [facility] Comment on above: Performed By: #### T SH, LIVER, LIPID, BMP, T7 #### [facility] [address] [place] [address] Dr. Roberto Cabral LYMPH # 1.4 103/ul Normal 1.2-3.8 The [facility] Comment on above: Performed By: #### T SH, LIVER, LIPID, BMP, T7 #### [facility] [address] [place] [address] Dr. Roberto Cabral Lymphocytes/100 WBC (Bld) 9.0 % Critically low 20.5-60.0 The [facility] Comment on above: Performed By: #### T SH, LIVER, LIPID, BMP, T7 #### [facility] [address] [place] [address] Dr. Roberto Cabral MANUAL DIFF REQ NO Normal [facility] Comment on above: Performed By: #### T SH, LIVER, LIPID, BMP, T7 #### [facility] [address] [place] [address] Dr. Roberto Cabral MCH (RBC) [Entitic mass] 28.1 pg Normal 25.9-34.0 [facility] Comment on above: Performed By: #### T SH, LIVER, LIPID, BMP, T7 #### [facility] [address] [place] [address] Dr. Roberto Cabral MCHC (RBC) [Mass/Vol] 31.9 g/dL Normal 29.9-35.2 The [facility] Comment on above: Performed By: #### T SH, LIVER, LIPID, BMP, T7 #### [facility] [address] [place] [address] Dr. Roberto Cabral MCV (RBC) [Entitic vol] 88.3 fL Normal 80.0-94.0 The [facility] Comment on above: Performed By: #### T SH, LIVER, LIPID, BMP, T7 #### [facility] [address] [place] [address] Dr. Roberto Cabral MONO # 1.4 103/ul Critically high 0.3-0.8 [facility] Comment on above: Performed By: #### T SH, LIVER, LIPID, BMP, T7 #### [facility] [address] [address] [address] Roberto Cabral Monocytes/100 WBC (Bld) 8.8 % Normal 1.7-12.0 The [facility] Comment on above: Performed By: #### T SH, LIVER, LIPID, BMP, T7 #### [facility] [address] [address] [address] Roberto Cabral NEUT # 12.3 103/ul Critically high 1.4-6.5 [facility] Comment on above: Performed By: #### T SH, LIVER, LIPID, BMP, T7 #### [facility] [address] [address] [address] Roberto Cabral Neutrophils/100 WBC (Bld) 78.9 % Critically high 43.0-75.0 The [facility] Comment on above: Performed By: #### T SH, LIVER, LIPID, BMP, T7 #### [facility] [address] [place] [address] Dr. Roberto Cabral Platelet mean volume (Bld) [Entitic vol] 10.5 fL Normal 9.5-13.5 The [facility] Comment on above: Performed By: #### T SH, LIVER, LIPID, BMP, T7 #### [facility] [address] [place] [address] Dr. Roberto Cabral PLT 316 103/ul Normal 150-450 The [facility] Comment on above: Performed By: #### T SH, LIVER, LIPID, BMP, T7 #### [facility] [address] [address] [address] Roberto Cabral RBC 4.09 106/ul Critically low 4.70-6.10 [facility] Comment on above: Performed By: #### T SH, LIVER, LIPID, BMP, T7 #### [facility] [address] [place] [address] Dr. Roberto Cabral WBC 15.6 103/ul Critically high 4.0-11.0 [facility] Comment on above: Performed By: #### T SH, LIVER, LIPID, BMP, T7 #### [facility] [address] [place] [address] Dr. Roberto Cabral CULTURE URINEon 12-10-2021 CULTURE URINE Culture Observations : No growth Normal The [facility] Comment on above: Performed By: #### T SH, LIVER, LIPID, BMP, T7 #### [facility] [address] [place] [address] Dr. Roberto Cabral ER URINE PROFILEon 2 Bilirubin Ql (U) Negative Normal NEGATIVE [facility] Comment on above: Performed By: #### E RUR #### [facility] [address] [place] [address] Dr. Roberto Cabral Clarity (U) CLEAR Normal CLEAR The [facility] Comment on above: Performed By: #### E RUR #### [facility] [address] [place] [address] Dr. Roberto Cabral Color (U) LT. YELLOW Normal YELLOW The [facility] Comment on above: Performed By: #### E RUR #### [facility] [address] [place] [address] Dr. Roberto Cabral ERUAHD A micrscopic examination will be performed if indicated. Normal The [facility] Comment on above: Performed By: #### E RUR #### [facility] [address] [place] [address] Dr. Roberto Cabral Glucose Ql (U) Negative Normal NEGATIVE The [facility] Comment on above: Performed By: #### E RUR #### [facility] [address] [place] [address] Dr. Roberto Cabral Hemoglobin Ql (U) Negative Normal NEGATIVE The [facility] Comment on above: Performed By: #### E RUR #### [facility] [address] [place] [address] Dr. Roberto Cabral Ketones Ql (U) Negative Normal NEGATIVE The [facility] Comment on above: Performed By: #### E RUR #### [facility] [address] [place] [address] Dr. Roberto Cabral LEUKOCYTES Negative Normal NEGATIVE [facility] Comment on above: Performed By: #### E RUR #### [facility] [address] [place] [address] Dr. Roberto Cabral Nitrite Ql (U) Negative Normal NEGATIVE [facility] Comment on above: Performed By: #### E RUR #### [facility] [address] [place] [address] Dr. Roberto Cabral pH (U) 5.0 [pH] Normal 5-9 [facility] Comment on above: Performed By: #### E RUR #### [facility] [address] [place] [address] Dr. Roberto Cabral SPEC GRAVITY 1.015 Normal 1.005-<=1.025 [facility] Comment on above: Performed By: #### E RUR #### [facility] [address] [place] [address] Dr. Roberto Cabral UA PROTEIN Negative Normal NEGATIVE/ TRACE [facility] Comment on above: Performed By: #### E RUR #### [facility] [address] [place] [address] Dr. Roberto Cabral UR MICRO IND NOT INDICATED Normal [facility] Comment on above: Performed By: #### E RUR #### [facility] [address] [place] [address] Dr. Roberto Cabral Urobilinogen Qn (U) 0.2 {Noman'U}/dL Normal 0.2 - 1. 0 [facility] Comment on above: Performed By: #### E RUR #### [facility] [address] [place] [address] Dr. Roberto Cabral GI PANEL (PCR)on 12-10-2021 Adenovirus F 40/41 Not detected Normal NOT DETECTED [facility] Comment on above: Performed By: #### T SH, LIVER, LIPID, BMP, T7 #### [facility] [address] [place] [address] Dr. Roberto Cabral Astrovirus Not detected Normal NOT DETECTED The [facility] Comment on above: Performed By: #### T SH, LIVER, LIPID, BMP, T7 #### [facility] [address] [place] [address] Dr. Roberto Cabral C. Diff toxin A/B Not detected Normal NOT DETECTED [facility] Comment on above: Performed By: #### T SH, LIVER, LIPID, BMP, T7 #### [facility] [address] [address] [address] Roberto Cabral Campylobacter Not detected Normal NOT DETECTED The [facility] Comment on above: Performed By: #### T SH, LIVER, LIPID, BMP, T7 #### [facility] [address] [address] [address] Roberto Cabral Cryptosporidium Not detected Normal NOT DETECTED The [facility] Comment on above: Performed By: #### T SH, LIVER, LIPID, BMP, T7 #### [facility] [address] [address] [address] Roberto Cabral Cyclos. Cayetanensis Not detected Normal NOT DETECTED The [facility] Comment on above: Performed By: #### T SH, LIVER, LIPID, BMP, T7 #### [facility] [address] [address] [address] Roberto Cabral E. Coli O157 Not Applicable Normal Not Applicable The [facility] Comment on above: Performed By: #### T SH, LIVER, LIPID, BMP, T7 #### [facility] [address] [address] [address] Roberto Cabral E. histolytica Not detected Normal NOT DETECTED The [facility] Comment on above: Performed By: #### T SH, LIVER, LIPID, BMP, T7 #### [facility] [address] [address] [address] Roberto Cabral EAEC Not detected Normal NOT DETECTED The [facility] Comment on above: Performed By: #### T SH, LIVER, LIPID, BMP, T7 #### [facility] [address] [address] [address] Roberto Cabral EIEC Not detected Normal NOT DETECTED The [facility] Comment on above: Performed By: #### T SH, LIVER, LIPID, BMP, T7 #### [facility] [address] [address] [address] Roberto Cabral EPEC Not detected Normal NOT DETECTED The [facility] Comment on above: Performed By: #### T SH, LIVER, LIPID, BMP, T7 #### [facility] [address] [address] [address] Roberto Cabral ETEC Not detected Normal NOT DETECTED [facility] Comment on above: Performed By: #### T SH, LIVER, LIPID, BMP, T7 #### [facility] [address] [address] [address] Roberto Mcgrathlijossy Not detected Normal NOT DETECTED [facility] Comment on above: Performed By: #### T SH, LIVER, LIPID, BMP, T7 #### [facility] [address] [address] [address] Roberto CARDENAS CONTROLS PASSED Normal [facility] Comment on above: Performed By: #### T SH, LIVER, LIPID, BMP, T7 #### [facility] [address] [address] [address] Roberto GILL HEADER GI PANEL BACTERIA Normal T [facility] Comment on above: Performed By: #### T SH, LIVER, LIPID, BMP, T7 #### [facility] [address] [address] [address] Roberto IVEY ECOLI GI PANEL DIARRHEAGENIC E.COLI / SHIGELLA Normal [facility] Comment on above: Performed By: #### T SH, LIVER, LIPID, BMP, T7 #### [facility] [address] [address] [address] Roberto IVEY INFO SEE BELOW Normal [facility] Comment on above: Result Comment: EAEC - Enteroaggregative E. Coli EPEC- Enteropathogenic E. Coli ETEC- Enterotoxigenic E. Coli lt/st STEC- Shigella-like toxin-producing E. Coli stx1/stx2 EIEC- Shigella/Enteroinvasive E. Coli Performed By: #### T SH, LIVER, LIPID, BMP, T7 #### [facility] [address] [address] [address] Roberto IVEY PARASITES GI PANEL PARASITES Normal The [facility] Comment on above: Performed By: #### T SH, LIVER, LIPID, BMP, T7 #### [facility] [address] [address] [address] Roberto Cabral [employer] VIRUS GI PANEL VIRUSES Normal [facility] Comment on above: Performed By: #### T SH, LIVER, LIPID, BMP, T7 #### [facility] [address] [address] [address] Roberto Cabral Norovirus GI/GII Not detected Normal NOT DETECTED The [facility] Comment on above: Performed By: #### T SH, LIVER, LIPID, BMP, T7 #### [facility] [address] [address] [address] Roberto Cabral P. Shigelloides Not detected Normal NOT DETECTED [facility] Comment on above: Performed By: #### T SH, LIVER, LIPID, BMP, T7 #### [facility] [address] [address] [address] Roberot Cabral Rotavirus A Not detected Normal NOT DETECTED [facility] Comment on above: Performed By: #### T SH, LIVER, LIPID, BMP, T7 #### [facility] [address] [address] [address] Roberto Cabral Salmonella Not detected Normal NOT DETECTED [facility] Comment on above: Performed By: #### T SH, LIVER, LIPID, BMP, T7 #### [facility] [address] [place] [address] Dr. Roberto Cabral Sapovirus Detected Abnormal NOT DETECTED The [facility] Comment on above: Performed By: #### T SH, LIVER, LIPID, BMP, T7 #### [facility] [address] [address] [address] Robetro Cabral STEC Not detected Normal NOT DETECTED [facility] Comment on above: Performed By: #### T SH, LIVER, LIPID, BMP, T7 #### [facility] [address] [address] [address] Roberto Cabral Vibrio Not detected Normal NOT DETECTED [facility] Comment on above: Performed By: #### T SH, LIVER, LIPID, BMP, T7 #### [facility] [address] [address] [address] Roberto Cabral Vibrio Cholera Not detected Normal NOT DETECTED The [facility] Comment on above: Performed By: #### T SH, LIVER, LIPID, BMP, T7 #### [facility] [address] [address] [address] Roberto Kam. Enterocolitica Not detected Normal NOT DETECTED [facility] Comment on above: Performed By: #### T SH, LIVER, LIPID, BMP, T7 #### [facility] [address] [address] [address] Roberto Cabral POINT OF CARE GLUCOSEon 12-01 Glucose [Mass/Vol] 73 mg/dL Critically low 74-106 Th [facility] Comment on above: Performed By: #### P OCGLUC #### [facility] [address] [place] [address] Dr. Roberto Cabral Glucose [Mass/Vol] 69 mg/dL Critically low 74-106 [facility] Comment on above: Performed By: #### T SH, LIVER, LIPID, BMP, T7 #### [facility] [address] [place] [address] Dr. Roberto Cabral Glucose [Mass/Vol] 99 mg/dL Normal 74-106 [facility] Comment on above: Performed By: #### P OCGLUC #### [facility] [address] [place] [address] Dr. Roberto Cabral Glucose [Mass/Vol] 67 mg/dL Critically low 74-106 [facility] Comment on above: Performed By: #### T SH, LIVER, LIPID, BMP, T7 #### [facility] [address] [place] [address] Dr. Roberto Cabral Glucose [Mass/Vol] 74 mg/dL Normal 74-106 [facility] Comment on above: Performed By: #### P OCGLUC #### [facility] [address] [place] [address] Dr. Roberto Cabral Glucose [Mass/Vol] 55 mg/dL Critically low 74-106 [facility] Comment on above: Performed By: #### T SH, LIVER, LIPID, BMP, T7 #### [facility] [address] [place] [address] Dr. Roberto Cabral PROF 14(COMP METB)on 022 Albumin [Mass/Vol] 3.1 g/dL Critically low 3.4-5.0 Th e [facility] Comment on above: Performed By: #### T SH, LIVER, LIPID, BMP, T7 #### [facility] [address] [address] [address] Roberto Cabral Albumin/Globulin [Mass ratio] 0.9 {ratio} Normal [facility] Comment on above: Performed By: #### T SH, LIVER, LIPID, BMP, T7 #### [facility] [address] [place] [address] Dr. Roberto Cabral ALP [Catalytic activity/Vol] 73 U/L Normal 46-116 [facility] Comment on above: Performed By: #### T SH, LIVER, LIPID, BMP, T7 #### [facility] [address] [place] [address] Dr. Roberto Cabral ALT [Catalytic activity/Vol] 17 U/L Normal 16-63 [facility] Comment on above: Performed By: #### T SH, LIVER, LIPID, BMP, T7 #### [facility] [address] [address] [address] Roberto Cabral Anion gap [Moles/Vol] 17.7 mmol/L Normal [facility] Comment on above: Performed By: #### T SH, LIVER, LIPID, BMP, T7 #### [facility] [address] [place] [address] Dr. Roberto Cabral AST [Catalytic activity/Vol] 13 U/L Critically low 15-37 [facility] Comment on above: Performed By: #### T SH, LIVER, LIPID, BMP, T7 #### [facility] [address] [place] [address] Dr. Roberto Cabral Bilirubin [Mass/Vol] 0.2 mg/dL Normal 0.2-1.0 [facility] Comment on above: Performed By: #### T SH, LIVER, LIPID, BMP, T7 #### [facility] [address] [place] [address] Dr. Roberto Cabral Calcium [Mass/Vol] 8.7 mg/dL Normal 8.5-10.1 [facility] Comment on above: Performed By: #### T SH, LIVER, LIPID, BMP, T7 #### [facility] [address] [address] [address] Roberto Cabral Chloride [Moles/Vol] 110 mmol/L Critically high 98-107 [facility] Comment on above: Performed By: #### T SH, LIVER, LIPID, BMP, T7 #### [facility] [address] [place] [address] Dr. Roberto Cabral CO2 [Moles/Vol] 16.0 mmol/L Critically low 21.0-32.0 [facility] Comment on above: Performed By: #### T SH, LIVER, LIPID, BMP, T7 #### [facility] [address] [place] [address] Dr. Roberto Cabral Creatinine [Mass/Vol] 1.85 mg/dL Critically high 0.70-1.30 [facility] Comment on above: Performed By: #### T SH, LIVER, LIPID, BMP, T7 #### [facility] [address] [place] [address] Dr. Roberto Cabral EGFR-AF COSTA RICAN 43 mL/min/1.73m2 Critically low >=60 [facility] Comment on above: Performed By: #### T SH, LIVER, LIPID, BMP, T7 #### [facility] [address] [place] [address] Dr. Roberto Cabral EGFR-NON AF [place] R[place] 36 mL/min/1.73m2 Critically low >=60 [facility] Comment on above: Performed By: #### T SH, LIVER, LIPID, BMP, T7 #### [facility] [address] [place] [address] Dr. Roberto Cabral Globulin (S) [Mass/Vol] 3.4 g/dL Normal [facility] Comment on above: Performed By: #### T SH, LIVER, LIPID, BMP, T7 #### [facility] [address] [place] [address] Dr. Roberto Cabral Glucose [Mass/Vol] 113 mg/dL Critically high 74-106 [facility] Comment on above: Performed By: #### T SH, LIVER, LIPID, BMP, T7 #### [facility] [address] [place] [address] Dr. Roberto Cabral Potassium [Moles/Vol] 4.7 mmol/L Normal 3.5-5.1 [facility] Comment on above: Performed By: #### T SH, LIVER, LIPID, BMP, T7 #### [facility] [address] [place] [address] Dr. Roberto Cabral Protein [Mass/Vol] 6.5 g/dL Normal 6.4-8.2 [facility] Comment on above: Performed By: #### T SH, LIVER, LIPID, BMP, T7 #### [facility] [address] [place] [address] Dr. Roberto Cabral Sodium [Moles/Vol] 139 mmol/L Normal 136-145 [facility] Comment on above: Performed By: #### T SH, LIVER, LIPID, BMP, T7 #### [facility] [address] [place] [address] Dr. Roberto Cabral Urea nitrogen [Mass/Vol] 66.0 mg/dL Critically high 7.0-18.0 [facility] Comment on above: Performed By: #### T SH, LIVER, LIPID, BMP, T7 #### [facility] [address] [place] [address] Dr. Roberto Cabral Urea nitrogen/Creatinine [Mass ratio] 35.7 mg/mg Normal [facility] Comment on above: Performed By: #### T SH, LIVER, LIPID, BMP, T7 #### [facility] [address] [place] [address] Dr. Roberto Cabral CBC AUTO DIFFon 12-09-2021 BASO # 0.0 103/ul Normal 0.0-0.1 [facility] Comment on above: Performed By: #### T SH, LIVER, LIPID, BMP, T7 #### [facility] [address] [place] [address] Dr. Roberto Cabral Basophils/100 WBC (Bld) 0.2 % Normal 0.2-2.0 [facility] Comment on above: Performed By: #### T SH, LIVER, LIPID, BMP, T7 #### [facility] [address] [place] [address] Dr. Roberto Cabral EO # 0.3 103/ul Normal 0.0-0.7 [facility] Comment on above: Performed By: #### T SH, LIVER, LIPID, BMP, T7 #### [facility] [address] [place] [address] Dr. Roberto Cabral Eosinophils/100 WBC (Bld) 1.7 % Normal 0.9-7.0 [facility] Comment on above: Performed By: #### T SH, LIVER, LIPID, BMP, T7 #### [facility] [address] [place] [address] Dr. Roberto Cabral Erythrocyte distribution width (RBC) [Ratio] 15.4 % Critically high 11.0-15.0 [facility] Comment on above: Performed By: #### T SH, LIVER, LIPID, BMP, T7 #### [facility] [address] [place] [address] Dr. Roberto Cabral Hematocrit (Bld) [Volume fraction] 40.2 % Critically low 42.0-54.0 [facility] Comment on above: Performed By: #### T SH, LIVER, LIPID, BMP, T7 #### [facility] [address] [place] [address] Dr. Roberto Cabral Hemoglobin (Bld) [Mass/Vol] 12.6 g/dL Critically low 14.0-18.0 [facility] Comment on above: Performed By: #### T SH, LIVER, LIPID, BMP, T7 #### [facility] [address] [place] [address] Dr. Roberto Cabral IG # 0.09 10e3/ul Critically high 0.00-0.03 [facility] Comment on above: Performed By: #### T SH, LIVER, LIPID, BMP, T7 #### [facility] [address] [place] [address] Dr. Roberto Cabral IG % 0.5 % Normal 0.0-0.5 [facility] Comment on above: Performed By: #### T SH, LIVER, LIPID, BMP, T7 #### [facility] [address] [place] [address] Dr. Roberto Cabral LYMPH # 1.5 103/ul Normal 1.2-3.8 [facility] Comment on above: Performed By: #### T SH, LIVER, LIPID, BMP, T7 #### [facility] [address] [place] [address] Dr. Roberto Cabral Lymphocytes/100 WBC (Bld) 8.0 % Critically low 20.5-60.0 [facility] Comment on above: Performed By: #### T SH, LIVER, LIPID, BMP, T7 #### [facility] [address] [place] [address] Dr. Roberto Cabral MANUAL DIFF REQ NO Normal [facility] Comment on above: Performed By: #### T SH, LIVER, LIPID, BMP, T7 #### [facility] [address] [place] [address] Dr. Roberto Cabral MCH (RBC) [Entitic mass] 28.0 pg Normal 25.9-34.0 [facility] Comment on above: Performed By: #### T SH, LIVER, LIPID, BMP, T7 #### [facility] [address] [place] [address] Dr. Roberto Cabral MCHC (RBC) [Mass/Vol] 31.3 g/dL Normal 29.9-35.2 [facility] Comment on above: Performed By: #### T SH, LIVER, LIPID, BMP, T7 #### [facility] [address] [place] [address] Dr. Roberto Cabral MCV (RBC) [Entitic vol] 89.3 fL Normal 80.0-94.0 [facility] Comment on above: Performed By: #### T SH, LIVER, LIPID, BMP, T7 #### [facility] [address] [place] [address] Dr. Roberto Cabral MONO # 1.5 103/ul Critically high 0.3-0.8 [facility] Comment on above: Performed By: #### T SH, LIVER, LIPID, BMP, T7 #### [facility] [address] [place] [address] Dr. Roberto Cabral Monocytes/100 WBC (Bld) 8.2 % Normal 1.7-12.0 [facility] Comment on above: Performed By: #### T SH, LIVER, LIPID, BMP, T7 #### [facility] [address] [address] [address] Roebrto Cabral NEUT # 14.9 103/ul Critically high 1.4-6.5 [facility] Comment on above: Performed By: #### T SH, LIVER, LIPID, BMP, T7 #### [facility] [address] [address] [address] Roberto Cabral Neutrophils/100 WBC (Bld) 81.4 % Critically high 43.0-75.0 [facility] Comment on above: Performed By: #### T SH, LIVER, LIPID, BMP, T7 #### [facility] [address] [place] [address] Dr. Roberto Cabral Platelet mean volume (Bld) [Entitic vol] 10.0 fL Normal 9.5-13.5 [facility] Comment on above: Performed By: #### T SH, LIVER, LIPID, BMP, T7 #### [facility] [address] [place] [address] Dr. Roberto Cabral PLT 358 103/ul Normal 150-450 [facility] Comment on above: Performed By: #### T SH, LIVER, LIPID, BMP, T7 #### [facility] [address] [place] [address] Dr. Roberto Cabral RBC 4.50 106/ul Critically low 4.70-6.10 [facility] Comment on above: Performed By: #### T SH, LIVER, LIPID, BMP, T7 #### [facility] [address] [place] [address] Dr. Roberto Cabral WBC 18.3 103/ul Critically high 4.0-11.0 [facility] Comment on above: Performed By: #### T SH, LIVER, LIPID, BMP, T7 #### [facility] [address] [place] [address] ABD/PELVIS WO CONon [...] DEVIN ORTIZ Date: 2021-12-09 20:39 Normal [facility] Covid-19 PCR (CVDTB)on SARS-CoV-2 (COVID-19) RNA JOSÉ+probe Ql (Unsp spec) Not detected Normal NOT DETECTED [facility] [...] for this test is supported by the [place] of Health and Human Service's declaration that [...] T SH, LIVER, LIPID, BMP, T7 #### [facility] [address] [place] [address] Dr. Roberto Cabral LACTATE/LACTIC ACIDon 2021 Lactate [Moles/Vol] 1.1 mmol/L Normal 0.4-1.9 [facility] Comment on above: Performed By: #### T SH, LIVER, LIPID, BMP, T7 #### [facility] [address] [place] [address] Dr. Roberto Cabral LIPASEon 12-09-2021 Lipase [Catalytic activity/Vol] 186.0 U/L Normal 73.0-393.0 [facility] Comment on above: Performed By: #### T SH, LIVER, LIPID, BMP, T7 #### [facility] [address] [place] [address] Dr. Roberto Cabral PROF 14(COMP METB)on 022 Albumin [Mass/Vol] 3.6 g/dL Normal 3.4-5.0 [facility] Comment on above: Performed By: #### T SH, LIVER, LIPID, BMP, T7 #### [facility] [address] [address] [address] Roberto Cabral Albumin/Globulin [Mass ratio] 1.0 {ratio} Normal [facility] Comment on above: Performed By: #### T SH, LIVER, LIPID, BMP, T7 #### [facility] [address] [address] [address] Roberto Cabral ALP [Catalytic activity/Vol] 79 U/L Normal 46-116 [facility] Comment on above: Performed By: #### T SH, LIVER, LIPID, BMP, T7 #### [facility] [address] [address] [address] Roberto Cabral ALT [Catalytic activity/Vol] 19 U/L Normal 16-63 [facility] Comment on above: Performed By: #### T SH, LIVER, LIPID, BMP, T7 #### [facility] [address] [place] [address] Dr. Roberto Cabral Anion gap [Moles/Vol] 20.6 mmol/L Normal [facility] Comment on above: Performed By: #### T SH, LIVER, LIPID, BMP, T7 #### [facility] [address] [place] [address] Dr. Roberto Cabral AST [Catalytic activity/Vol] 19 U/L Normal 15-37 [facility] Comment on above: Performed By: #### T SH, LIVER, LIPID, BMP, T7 #### [facility] [address] [place] [address] Dr. Roberto Cabral Bilirubin [Mass/Vol] 0.3 mg/dL Normal 0.2-1.0 [facility] Comment on above: Performed By: #### T SH, LIVER, LIPID, BMP, T7 #### [facility] [address] [address] [address] Roberto Cabral Calcium [Mass/Vol] 9.4 mg/dL Normal 8.5-10.1 [facility] Comment on above: Performed By: #### T SH, LIVER, LIPID, BMP, T7 #### [facility] [address] [address] [address] Roberto Cabral Chloride [Moles/Vol] 107 mmol/L Normal 98-107 [facility] Comment on above: Performed By: #### T SH, LIVER, LIPID, BMP, T7 #### [facility] [address] [address] [address] Roberto Cabral CO2 [Moles/Vol] 14.9 mmol/L Critically low 21.0-32.0 [facility] Comment on above: Performed By: #### T SH, LIVER, LIPID, BMP, T7 #### [facility] [address] [address] [address] Roberto Cabral Creatinine [Mass/Vol] 2.11 mg/dL Critically high 0.70-1.30 [facility] Comment on above: Performed By: #### T SH, LIVER, LIPID, BMP, T7 #### [facility] [address] [place] [address] Dr. Roberto Cabral EGFR-AF COSTA RICAN 37 mL/min/1.73m2 Critically low >=60 [facility] Comment on above: Performed By: #### T SH, LIVER, LIPID, BMP, T7 #### [facility] [address] [place] [address] Dr. Roberto Cabral EGFR-NON AF [place] R[place] 31 mL/min/1.73m2 Critically low >=60 [facility] Comment on above: Performed By: #### T SH, LIVER, LIPID, BMP, T7 #### [facility] [address] [place] [address] Dr. Roberto Cabral Globulin (S) [Mass/Vol] 3.5 g/dL Normal [facility] Comment on above: Performed By: #### T SH, LIVER, LIPID, BMP, T7 #### [facility] [address] [place] [address] Dr. Roberto Cabral Glucose [Mass/Vol] 170 mg/dL Critically high 74-106 [facility] Comment on above: Performed By: #### T SH, LIVER, LIPID, BMP, T7 #### [facility] [address] [place] [address] Dr. Roberto Cabral Potassium [Moles/Vol] 5.5 mmol/L Critically high 3.5-5.1 [facility] Comment on above: Performed By: #### T SH, LIVER, LIPID, BMP, T7 #### [facility] [address] [address] [address] Roberto Cabral Protein [Mass/Vol] 7.1 g/dL Normal 6.4-8.2 [facility] [place] Comment on above: Performed By: #### T SH, LIVER, LIPID, BMP, T7 #### [facility] [address] [address] [address] Roberto Cabral Sodium [Moles/Vol] 137 mmol/L Normal 136-145 [facility] [place] Comment on above: Performed By: #### T SH, LIVER, LIPID, BMP, T7 #### [facility] [address] [place] [address] Dr. Roberto Cabral Urea nitrogen [Mass/Vol] 70.0 mg/dL Critically high 7.0-18.0 [facility] Comment on above: Performed By: #### T SH, LIVER, LIPID, BMP, T7 #### [facility] [address] [place] [address] Dr. Roberto Cabral Urea nitrogen/Creatinine [Mass ratio] 33.2 mg/mg Normal [facility] Comment on above: Performed By: #### T SH, LIVER, LIPID, BMP, T7 #### [facility] [address] [place] [address] Dr. Roberto Cabral PROTIMEon 12-09-2021 INR Coag (PPP) [Relative time] 1.04 {INR} Normal [facility] Comment on above: Performed By: #### T SH, LIVER, LIPID, BMP, T7 #### [facility] [address] [place] [address] Dr. Roberto Cabral INR GUIDELINES SEE BELOW Normal [facility] Comment on above: Result Comment: NIKI RED INR: 2.0 - 3.0 CONDITIONS NOT LISTED BELOW 2.5 - 3.5 FOR PROSTHETIC HEART VALVE REPLACEMENT 2.5 - 3.5 RECURRENT THROMBOSIS Performed By: #### T SH, LIVER, LIPID, BMP, T7 #### [facility] [address] [place] [address] Dr. Roberto Cabral PT Coag (PPP) [Time] 11.2 s Normal 9.0-11.6 [facility] Comment on above: Performed By: #### T SH, LIVER, LIPID, BMP, T7 #### [facility] [address] [place], [place] [address] Dr. Roberto Cabral PTTon 12-09-2021 aPTT Coag (Bld) [Time] 33.4 s Normal 22.3-36.2 [facility] Comment on above: Performed By: #### T SH, LIVER, LIPID, BMP, T7 #### [facility] [address] [place], [place] [address] Dr. Roberto Cabral TROPONIN, HIGH SENSITIVITYon 12-09-2021 HSTROP 11.4 pg/mL Normal 4.0-76.1 [facility] Comment on above: Result Comment: CUT- OFF POINTS HAVE BEEN ESTABLISHED BASED ON THE FOURTH UNIVERSAL DEFINITIONS OF MYOCARDIAL INFARCTION. THE UPPER REFERENCE LIMIT (URL) OF TROPONIN, DEFINED THE 99TH PERCENTILE OF cTnI DISTRIBUTION IN A REFERENCE POPULATION, HAS BEEN CONFIRMED THE DECISION THRESHOLD FOR PA DIAGNOSIS. Performed By: #### T SH, LIVER, LIPID, BMP, T7 #### [facility] [address] [address] [address] Roberto Cabral POINT OF CARE GLUCOSEon 10-31 Glucose [Mass/Vol] 115 mg/dL Critically high 74-106 [facility] Comment on above: Performed By: #### T SH, LIVER, LIPID, BMP, T7 #### [facility] [address] [address] [address] Roberto Cabral Vital Signs Date Time Vital Sign Value Performing Clinician Facility 12-29-2023 09:39-0400 Body temperature 97.5 [degF] Austin Springer MD Work Phone: [facility] 12-29-2023 09:39-0400 Body weight 104.1 kg Austin Springer MD Work Phone: [facility] 12-29-2023 09:39-0400 Diastolic blood pressure 66 mm[Hg] Austin Springer MD Work Phone: [facility] 12-29-2023 09:39-0400 Heart rate 57 /min Austin Springer MD Work Phone: [facility] 12-29-2023 09:39-0400 Respiratory rate 18 /min Austin Springer MD Work Phone: [facility] 12-29-2023 09:39-0400 SaO2% (BldA) [Mass fraction] 94 % Austin Springer MD Work Phone: [facility] 12-29-2023 09:39-0400 Systolic blood pressure 165 mm[Hg] Austin Springer MD Work Phone: [facility] 11-10-2023 09:29-0400 Body temperature 98.01 [degF] Chair Klondike Work Phone: [facility] 11-10-2023 09:29-0400 Diastolic blood pressure 74 mm[Hg] Chair Klondike Work Phone: [facility] 11-10-2023 09:29-0400 Heart rate 56 /min Chair Syed Work Phone: [facility] 11-10-2023 09:29-0400 Respiratory rate 18 /min Chair Klondike Work Phone: [facility] 11-10-2023 09:29-0400 SaO2% (BldA) [Mass fraction] 95 % Chair Klondike Work Phone: [facility] 11-10-2023 09:29-0400 Systolic blood pressure 150 mm[Hg] Chair Klondike Work Phone: [facility] 11-03-2023 09:18-0400 Body temperature 97.7 [degF] Chair Syed Work Phone: [facility] 11-03-2023 09:18-0400 Diastolic blood pressure 73 mm[Hg] Chair Klondike Work Phone: [facility] 11-03-2023 09:18-0400 Heart rate 58 /min Chair Klondike Work Phone: [facility] 11-03-2023 09:18-0400 Respiratory rate 16 /min Chair Klondike Work Phone: [facility] 11-03-2023 09:18-0400 Systolic blood pressure 135 mm[Hg] Chair Syed Work Phone: [facility] 10-27-2023 09:10-0400 Body temperature 97.11 [degF] Chair Klondike Work Phone: [facility] 10-27-2023 09:10-0400 Diastolic blood pressure 64 mm[Hg] Chair Klondike Work Phone: [facility] 10-27-2023 09:10-0400 Heart rate 61 /min Chair Syed Work Phone: [facility] 10-27-2023 09:10-0400 Respiratory rate 16 /min Chair Klondike Work Phone: [facility] 10-27-2023 09:10-0400 SaO2% (BldA) [Mass fraction] 96 % Chair Syed Work Phone: [facility] 10-27-2023 09:10-0400 Systolic blood pressure 149 mm[Hg] Chair Klondike Work Phone: [facility] 10-20-2023 10:34-0400 Body temperature 97.2 [degF] Austin Springer MD Work Phone: [facility] 10-20-2023 10:34-0400 Body weight 103.3 kg Austin Springer MD Work Phone: [facility] 10-20-2023 10:34-0400 Diastolic blood pressure 52 mm[Hg] Austin Springer MD Work Phone: [facility] 10-20-2023 10:34-0400 Heart rate 55 /min Austin Springer MD Work Phone: [facility] 10-20-2023 10:34-0400 Respiratory rate 18 /min Austin Springer MD Work Phone: [facility] 10-20-2023 10:34-0400 SaO2% (BldA) [Mass fraction] 95 % Austin Springer MD Work Phone: [facility] 10-20-2023 10:34-0400 Systolic blood pressure 182 mm[Hg] Austin Springer MD Work Phone: [facility] 09-22-2023 13:04-0400 Body temperature 97.59 [degF] Chair Syed Work Phone: [facility] 09-22-2023 13:04-0400 Diastolic blood pressure 71 mm[Hg] Chair Klondike Work Phone: [facility] 09-22-2023 13:04-0400 Heart rate 61 /min Chair Klondike Work Phone: [facility] 09-22-2023 13:04-0400 Respiratory rate 16 /min Chair Syed Work Phone: [facility] 09-22-2023 13:04-0400 SaO2% (BldA) [Mass fraction] 98 % Chair Klondike Work Phone: [facility] 09-22-2023 13:04-0400 Systolic blood pressure 166 mm[Hg] Chair Syed Work Phone: [facility] 09-15-2023 12:55-0400 Body temperature 98.01 [degF] Chair Klondike Work Phone: [facility] 09-15-2023 12:55-0400 Diastolic blood pressure 78 mm[Hg] Chair Klondike Work Phone: [facility] 09-15-2023 12:55-0400 Heart rate 65 /min Chair Klondike Work Phone: [facility] 09-15-2023 12:55-0400 Respiratory rate 18 /min Chair Klondike Work Phone: [facility] 09-15-2023 12:55-0400 SaO2% (BldA) [Mass fraction] 97 % Chair Syed Work Phone: [facility] 09-15-2023 12:55-0400 Systolic blood pressure 156 mm[Hg] Chair Syed Work Phone: [facility] 09-04-2023 11:14-0500 Diastolic blood pressure 40 mm[Hg] Austin Springer MD Work Phone: [facility] 09-04-2023 11:14-0500 Heart rate 61 /min Austin Springer MD Work Phone: [facility] 09-04-2023 11:14-0500 Systolic blood pressure 159 mm[Hg] Austin Springer MD Work Phone: [facility] 09-04-2023 11:02-0500 Body temperature 97.5 [degF] Austin Springer MD Work Phone: [facility] 09-04-2023 11:02-0500 Body weight 102.3 kg Austin Springer MD Work Phone: [facility] 09-04-2023 11:02-0500 Respiratory rate 18 /min Austin Springer MD Work Phone: [facility] 09-04-2023 11:02-0500 SaO2% (BldA) [Mass fraction] 96 % Austin Springer MD Work Phone: [facility] 08-29-2023 15:01-0500 Blood Pressure Location Gwen LORENZO [facility] 08-29-2023 15:01-0500 Diastolic blood pressure 60 mm[Hg] Gwen LORENZO [facility] [employer] 08-29-2023 15:01-0500 Heart rate 68 /min Gwen LORENZO [facility] [employer] 08-29-2023 15:01-0500 Respiratory rate 16 /min Gwen NILL [facility] [employer] 08-29-2023 15:01-0500 Systolic blood pressure 144 mm[Hg] Gwen NILL General Surgery [employer] 10-27-2021 14:12-0400 Blood Pressure Location Gwen NILL [facility] Surgery [employer] 10-27-2021 14:12-0400 Diastolic blood pressure 64 mm[Hg] Gwen NILL [facility] 10-27-2021 14:12-0400 Heart rate 72 /min Gwen NILL [facility] 10-27-2021 14:12-0400 Respiratory rate 16 /min Gwen NILL General Surgery [employer] 10-27-2021 14:12-0400 Systolic blood pressure 120 mm[Hg] Gwen NILL [facility] Encounters Encounter Date Encounter Type Care Provider Facility Start: 12-29-2023 End: 12-29-2023 ambulatory AUSTIN SPRINGER Facility:[facility] Start: 12-29-2023 End: 12-29-2023 Office outpatient visit 15 minutes Austin Springer MD Work Phone: Hematology/Oncology Comment on above: Iron deficiency anem ia due to chronic blood loss (Primary Dx); Positive occult stool blood test Start: 12-26-2023 End: 12-26-2023 ambulatory ADONAY ZHANG Facility:[facility] Start: 12-25-2023 Telephone encounter Alicia Pires RN Hematology/Oncology Comment on above: Orders Start: 11-10-2023 End: 11-10-2023 ambulatory Chair Katlin Lynch Work Phone: Hematology/Oncology Comment on above: Iron deficiency anem ia due to chronic blood loss (Primary Dx) Start: 11-03-2023 End: 11-03-2023 ambulatory Chair 19 Syed Work Phone: Hematology/Oncology Comment on above: Iron deficiency anem ia due to chronic blood loss (Primary Dx) Start: 10-27-2023 End: 10-27-2023 ambulatory Chair 8 Syed Work Phone: Hematology/Oncology Comment on above: Iron deficiency anem ia due to chronic blood loss (Primary Dx) Start: 10-20-2023 End: 10-20-2023 Office outpatient visit 25 minutes Austin Springer MD Work Phone: Hematology/Oncology Comment on above: Iron deficiency anem ia due to chronic blood loss (Primary Dx); Positive occult stool blood test Start: 10-20-2023 End: 10-20-2023 ambulatory ADONAY ZHANG Facility:[facility] Start: 10-11-2023 End: 10-12-2023 ambulatory Gwen LORENZO Facility: [facility] Start: 09-29-2023 End: 09-29-2023 ambulatory AUSTIN SPRINGER Facility:[facility] Start: 09-22-2023 End: 09-22-2023 ambulatory Chair 11 [...] (Primary Dx) Start: 09-12-2023 End: 09-12-2023 ambulatory ADONAY M CYNTHIANegin Facility:[facility] Start: 09-08-2023 Social Work Maria Luisa DICKERSON Hematolo gy/Oncology Start: 09-04-2023 End: 09-04-2023 ambulatory ADONAY ZHANG Facility:[facility] Start: 09-04-2023 End: 09-04-2023 ambulatory AUSTIN SPRINGER Facility:[facility] Start: 09-04-2023 End: 09-04-2023 Office outpatient new 60 minutes Austin Springer MD Work Phone: Hematology/Oncology Comment on above: Iron deficiency anem ia due to chronic blood loss (Primary Dx); Positive occult stool blood test; Morbid obesity (HCC) Start: 08-31-2023 Chart abstracting Austin win MD Work Phone: Hematology/Oncology Start: 08-29-2023 End: 08-30-2023 ambulatory Gwen LORENZO Facility:[facility] Start: 08-29-2023 End: 08-29-2023 Patient encounter procedure Gwen LORENZO General Surgery Nill/Said Seth Start: 10-14-2022 End: 10-15-[address] ADONAY ZHANG . Facility: Start: 09-01-2022 End: 09-02-[address] ADONAY ZHANG . Facility: Start: 02-21-2022 End: 02-21-[address] ADONAY ZHANG . Facility:[facility] Start: 12-14-2021 End: 12-15-[address] ADONAY ZHANG . Facility: Start: 12-10-2021 End: 12-11-[address] ADONAY ZHANG . Facility:[facility] Start: 11-17-2021 End: 11-17-[address] GWEN LORENZO . Facility: Start: 10-27-2021 End: 10-27-2021 Patient encounter procedure Gwen LORENZO General Surgery Nill/Said Seth Start: 01-18-2017 End: 01-19-2017 Ambulatory DEFAULT PHYSICIAN Facility:[facility] Procedures Date Procedure Procedure Detail Performing Clinician Start: 10-14-[address] ADONAY ZHANG . Comment on above: Performed By: #### TSH, LIVER, LIPID, BM P, T7 #### [facility] [address] [address] [address] Roberto Cabral Start: 11-17-2021 Colonoscopy Gwen LORENZO Start: 11-17-2021 Esophagogastroduodenoscopy Gwen LORENZO Start: 12-20-2016 Colonoscopy Gwen LORENZO Cholecystectomy Gwen LORENZO Plan of Treatment Date Care Activity Detail Author Start: 02-10-2033 Urine microalbumin profile DTaP,Tdap,Td Vaccine (3 - Td or Tdap) [facility] Start: 12-25-2026 [facility]: 10-19-2026 [facility] Start: 09-03-2026 [facility] Start: 03-01-2024 End: 03-01-2024 ambulatory Hematology/Oncology Comment on above: 8 week lab Possible IV Fe Start: 02-28-2024 End: 02-28-2024 Patient encounter procedure 02/28/2024 9:00 AM EDT Office Visit [facility] [address] [place] [address] 8 week lab [facility] Comment on above: 8 week lab Start: 12-29-2023 End: 12-29-2023 Follow-up encounter Hematology/Oncology Comment on above: 8 WEEK FOLLOW UP wit h lab possible iv fe 8 WEEK FOLLOW UP wit h lab possible Venofer 300 Start: 12-29-2023 End: 12-29-2023 Patient encounter procedure 12/29/2023 9:30 AM EDT Office Visit [facility] [address] [place] [address] 8 WEEK FOLLOW UP with lab possible iv fe [facility] Comment on above: 8 WEEK FOLLOW UP wit h lab possible iv fe Start: 12-26-2023 End: 03-26-2024 Cobalamin (Vitamin B12) [Mass/volume] in Serum or Plasma [facility] Comment on above: Expected: 12/26/2023 , Expires: 03/26/2024 Start: 12-26-2023 End: 03-26-2024 Comprehensive metabolic 2000 panel - Serum or Plasma COMPREHENSIVE METABOLIC PANEL Lab Routine Iron deficiency anemia due to chronic blood loss Expected: 12/26/2023, Expires: 03/26/2024 [facility] Work Phone: Comment on above: Expected: 12/26/2023 , Expires: 03/26/2024 Start: 12-26-2023 End: 03-26-2024 Ferritin [Mass/volume] in Serum or Plasma FERRITIN Lab Routine Iron deficiency anemia due to chronic blood loss Expected: 12/26/2023, Expires: 03/26/2024 [facility] Comment on above: Expected: 12/26/2023 , Expires: 03/26/2024 Start: 12-26-2023 End: 03-26-2024 Folate [Mass/volume] in Serum or Plasma [facility] Work Phone: Comment on above: Expected: 12/26/2023 , Expires: 03/26/2024 Start: 12-26-2023 End: 03-26-2024 Iron and Iron binding capacity panel - Serum or Plasma [facility] Comment on above: Expected: 12/26/2023 , Expires: 03/26/2024 Start: 12-26-2023 End: 12-26-2023 Patient encounter procedure 12/26/2023 10:00 AM EDT Office Visit [facility] [address] [place] [address] 8 WEEK FOLLOW UP with lab possible iv fe [facility] Comment on above: 8 WEEK FOLLOW UP wit h lab possible iv fe Start: 11-10-2023 End: 11-10-2023 ambulatory 11/10/2023 9:30 AM EDT Infusion Center Hematology/Oncology [address] [place] [address] Weekly Venofer x 3 doses Hematology/Oncology Comment on above: Weekly Venofer x 3 d oses Start: 11-03-2023 End: 11-03-2023 ambulatory 11/03/2023 9:30 AM EDT Infusion Center Hematology/Oncology [address] [place] [address] Weekly Venofer x 3 doses Hematology/Oncology Comment on above: Weekly Venofer x 3 d oses Start: 10-16-2023 End: 09-03-2024 CBC W Auto Differential panel - Blood CBC + DIFF Lab Routine Iron deficiency anemia due to chronic blood loss Positive occult stool blood test Expected: 10/16/2023 (Approximate), Expires: 09/03/2024 [facility] Work Phone: Comment on above: Expected: 10/16/2023 (Approximate), Expires: 09/03/2024 Start: 10-16-2023 End: 09-03-2024 Cobalamin (Vitamin B12) [Mass/volume] in Serum or Plasma VITAMIN B12 BLOOD Lab Routine Iron deficiency anemia due to chronic blood loss Positive occult stool blood test Expected: 10/16/2023 (Approximate), Expires: 09/03/2024 [facility] Work Phone: Comment on above: Expected: 10/16/2023 (Approximate), Expires: 09/03/2024 Start: 10-16-2023 End: 09-03-2024 Comprehensive metabolic 2000 panel - Serum or Plasma COMP METABOLIC PANEL Lab Routine Iron deficiency anemia due to chronic blood loss Positive occult stool blood test Expected: 10/16/2023 (Approximate), Expires: 09/03/2024 [facility] Work Phone: Comment on above: Expected: 10/16/2023 (Approximate), Expires: 09/03/2024 Start: 10-16-2023 End: 09-03-2024 Ferritin [Mass/volume] in Serum or Plasma FERRITIN BLD Lab Routine Iron deficiency anemia due to chronic blood loss Positive occult stool blood test Expected: 10/16/2023 (Approximate), Expires: 09/03/2024 [facility] Work Phone: Comment on above: Expected: 10/16/2023 (Approximate), Expires: 09/03/2024 Start: 10-16-2023 End: 09-03-2024 Folate [Mass/volume] in Serum or Plasma FOLATE SERUM Lab Routine Iron deficiency anemia due to chronic blood loss Positive occult stool blood test Expected: 10/16/2023 (Approximate), Expires: 09/03/2024 [facility] Work Phone: Comment on above: Expected: 10/16/2023 (Approximate), Expires: 09/03/2024 Start: 10-16-2023 End: 09-03-2024 Iron and Iron binding capacity panel - Serum or Plasma IRON + TIBC Lab Routine Iron deficiency anemia due to chronic blood loss Positive occult stool blood test Expected: 10/16/2023 (Approximate), Expires: 09/03/2024 [facility] Work Phone: Comment on above: Expected: 10/16/2023 (Approximate), Expires: 09/03/2024 Start: 09-04-2023 End: 09-03-2024 Cobalamin (Vitamin B12) [Mass/volume] in Serum or Plasma [facility] Work Phone: Comment on above: Expected: 09/04/2023 , Expires: 09/03/2024 Start: 09-04-2023 End: 09-03-2024 Ferritin [Mass/volume] in Serum or Plasma [facility] Work Phone: Comment on above: Expected: 09/04/2023 , Expires: 09/03/2024 Start: 09-04-2023 End: 09-03-2024 Folate [Mass/volume] in Serum or Plasma [facility] Work Phone: Comment on above: Expected: 09/04/2023 , Expires: 09/03/2024 Start: 09-04-2023 End: 12-04-2023 Haptoglobin [Mass/volume] in Serum or Plasma [facility] Work Phone: Comment on above: Expected: 09/04/2023 , Expires: 12/04/2023 Start: 09-04-2023 End: 09-03-2024 Iron and Iron binding capacity panel - Serum or Plasma [facility] Work Phone: Comment on above: Expected: 09/04/2023 , Expires: 09/03/2024 Start: 08-06-2023 Covid-19 Vaccine (7 - 2023-24 season) Covid-19 Vaccine ( season) [facility] Start: 07-03-2023 Advance Directive Discussion Advance Directive Discussion [facility] Start: 07-03-2023 Behavioral Health Screening Behavioral Health Screening [facility] Start: 07-03-2023 Depression Assessment Depression Ass essment [facility] Start: 03-03-2023 Influenza vaccination Influenza Vacc ine (#1) [facility] Start: 2010 Pneumococcal Vaccine : 65+ (1 of 1 - PCV) Pneumococcal Vaccine: 65+ (1 of 1 - PCV) [facility] Start: 2005 RSV Vaccine (1 - 1-d ose 60+ series) RSV Vaccine (1 - 1-dose 60+ series) [facility] Start: 1995 Shingrix Vaccine (1 of 2) Shingrix Vaccine (1 of 2) [facility] Start: 1990 Diabetes Screening Diabetes Screenin g [facility] Start: 1964 Urine microalbumin profile DTaP,Tdap,Td Vaccine (1 - Tdap) [facility] Start: 1963 Hepatitis C screening Hepatitis C [facility] Start: 1945 Covid-19 Vaccine (#1) Covid-19 Vacci ne (#1) [facility] CBC W Auto Different ial panel - Blood CBC + DIFF Lab Routine Iron deficiency anemia due to chronic blood loss Positive occult stool blood test 09/04/2023 12:26 PM [facility] Work Phone: [facility] Immunizations Immunization Date Immunization Notes Care Provider Herlinda morris 04-05-2023 influenza (HD-IIV4) vaccine, age 65+ yr, high dose, quadrivalent, PF (FLUZONE HIGH-DOSE) Austin Springer MD Work Phone: [facility] 04-05-2023 influenza virus vacc ine, unspecified formulation Gwen LORENZO General Surgery [employer] 02-10-2023 tetanus toxoid, redu angy diphtheria toxoid, and acellular pertussis vaccine, adsorbed Austin Springer MD Work Phone: [facility] 07-06-2022 SARS-CoV-2 (COVID-19 ) [id number] [facility]22 influenza nasal, unspecified formulation Austin Springer MD Work Phone: [facility] 04-29-2022 influenza (aIIV4) vaccine, age 65+ yr, quadrivalent, PF (FLUAD QUAD) Austin Springer MD Work Phone: [facility] 06-25-2021 SARS-CoV-2 (COVID-19 ) Ad26 vaccine, recombinant Gwen N[facility] 06-21-2021 SARS-CoV-2 (COVID-19 ) mRNA BNT-[id number] vax Gwen HUMBERT[facility] 05-03-2021 unknown vaccine or immune globulin Austin Springer MD Work Phone: [facility] 09-22-2020 SARS-CoV-2 (COVID-19 ) Ad26 vaccine, recombinant Gwen N[facility] 08-31-2020 SARS-CoV-2 (COVID-19 ) Ad26 vaccine, recombinant Gwen N[facility] 08-05-2020 influenza (HD-IIV4) vaccine, age 65+ yr, high dose, quadrivalent, PF (FLUZONE HIGH-DOSE) Austin Springer MD Work Phone: [facility] 04-02-2019 influenza nasal, unspecified formulation Austin Springer MD Work Phone: [facility] 05-18-2018 influenza, injectabl e, quadrivalent, preservative free Austin Springer MD Work Phone: [facility] 05-18-2018 zoster vaccine recombinant Austin Springer MD Work Phone: [facility] 12-15-2017 pneumococcal conjuga te vaccine, 13 valent Austin Springer MD Work Phone: [facility] 12-15-2017 zoster vaccine recombinant Austin Springer MD Work Phone: [facility] 06-02-2017 influenza nasal, unspecified formulation Austin Springer MD Work Phone: [facility] 04-11-2015 influenza nasal, unspecified formulation Austin Springer MD Work Phone: [facility] 07-16-2014 influenza nasal, unspecified formulation Austin Springer MD Work Phone: [facility] 2013 influenza, seasonal, injectable Austin Springer MD Work Phone: [facility] 2013 pneumococcal polysaccharide vaccine, 23 valent Austin Springer MD Work Phone: [facility] 04-02-2013 influenza nasal, unspecified formulation Austin Springer MD Work Phone: [facility] 04-02-2013 pneumococcal polysaccharide vaccine, 23 valent Austin Springer MD Work Phone: [facility] 07-03-2012 tetanus toxoid, redu angy diphtheria toxoid, and acellular pertussis vaccine, adsorbed Austin Springer MD Work Phone: [facility] 04-11-2007 influenza nasal, unspecified formulation Austin Springer MD Work Phone: [facility] Payers Date Payer Category Payer Unknown 1959 Unknown [id number] 1945 Unknown [id number] [id number] 1945 Unknown [id number] 2.16.84 [id number] 1945 Unknown [id number] 2.16.84 [id number] 1945 Unknown [id number] 2.16.84 [id number] 1945 Unknown [id number] 2.16.84 [id number] 1945 Unknown [id number] 2.16.84 [id number] 1945 Unknown [id number] 2.16.8 [id number] 1945 Unknown [id number] 2.16.8 [id number] Social History Date Type Detail Facility Start: 10-27-2021 End: 09-04-2023 Tobacco smoking status Ex-smoker (finding) [facility] Tobacco smoking status Never [facility] Start: 09-04-2023 End: 10-19-2023 Sex Assigned At Male [facility] Tobacco smoking stat [facility] Tobacco smoking consumption unknown [facility] Start: 1945 Sex Assigned At Not on file [facility] History of tobacco use Current smoker [facility] History of tobacco use Cigarette Smoker [facility] History of tobacco use Passive smoker [facility] Start: 09-04-2023 Tobacco use and exposure Smokeless tobacco non-user [facility] Start: 09-04-2023 End: 12-29-2023 Alcohol intake Ex-drinker (finding) [facility] Start: 09-04-2023 End: 10-19-2023 History of Social function [facility] Start: 1945 Sex Assigned At Male [facility] Start: 09-19-2023 Gender identity Identifies as male gender (finding) [facility] Start: 09-19-2023 Sexual orientation Heterosexual (fin ding) [facility] Functional Status Date Assessment Result Facility 08-29-2023 Functional Status N/A [facility] Clinical Notes 11-17-2021 to 12-29-2023 Patient InstructionsAbAustin castellanos MD - 12/29/2023 9:45 AM EDTAddendum Note - Titi Castano MD - 12/26/2023 10:23 AM EDTAddendum Note - Titi Castano MD - 12/26/2023 10:23 AM EDT Note Date & Type Note Facility 12-29-2023 Instructions Ameena Vogt - 12/29/2023 10:24 AM EDT RTC in 8 weeks Labs, including iron studies, a few days prior Plan for iron infusion same day - can cancel if iron studies are stable documented in this encounter [facility] 12-29-2023 History of Presen t illness Narrative Images from the original note were not included. NAME: Case, Yunior CLINIC NO.: [id number] DATE OF SERVICE: December 29, 2023 (sasha) Some elements in this clinic note that are critical to medical decision making have been carefully reviewed and included from a prior clinic note dated: October 20, 2023 (Meghann) Referring Provider: Dr. Adonay Zhang ([facility] in [employer]) Additional Clinicians involved in Yunior Best's care: DIAGNOSIS: Iron deficiency anemia ASSESSMENT: 78 year old man with heme + stools and iron deficiency anemia. He is intolerant to oral iron therapy. Will need IV iron for replacement and diagnostic endoscopic evaluation. Suspect he has recurring ulcer. PLAN: RTC in 8 weeks Labs, including iron studies, a few days prior Plan for iron infusion same day - can cancel if iron studies are stable HPI: CASE HISTORY: Reverse Chronological Order 10/11/2023 - Colonoscopy in [employer] with Dr. Lorenzo: Negative findings 08/25/2023 - Stool for occult blood: Positive 08/11/2023 - Ferritin: 379, Iron: 14, Folate: 27 08/09/2023 - CBC: 8.4 > 8.0 / 31.1 < 321, MCV: 69.6 Updated Visit, December 29, 2023: Yunior returns with Theo. His appetite and energy have improved, he feels better overall after receiving iron infusions. As of 12/25, Hgb is normal at 14.6. Continue monitoring with labs in 8 weeks. Updated Visit, October 20, 2023: Yunior returns today with Heidi and his son, Theo. He has been feeling better. He had a scope done in [employer] - saw nothing of concern according to Heidi. Hgb has increased to 11.8 - up from 9.0. Theo mentions Yunior's health condition got worse when he was taking care of his before she . Initial Visit, September 04, 2023: Yunior Case presents today with his daughter, Heidi, for [...] colonoscopy. 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 REVIEW OF SYSTEMS Per HPI and otherwise negative by full review of organ systems. ECOG PERFORMANCE STATUS: 2 PHYSICAL EXAMINATION: Vitals: BP 165/66 Pulse 57 Temp (Src) 97.5 (Temporal) Resp 18 Wt 229 lb 8 oz (104.1kg) SpO2 94% There is no height or weight on [...] rash, lesions, wounds or petechiae. ALLERGIES: ALLERGIES No Known Allergies MEDICATIONS: ADULT LOW DOSE ASPIRIN ORAL Take by mouth. vitamin B complex (SUPER B COMPLEX ORAL) Take by mouth. POTASSIUM CHLORIDE ORAL Take by mouth. simvastatin (ZOCOR) 20 mg tablet Take 20 mg by mouth daily at bedtime. ALPRAZolam (XANAX) 0.25 mg tablet Take 0.25 mg by mouth at bedtime as needed. Clobetasol Propionate 0.05 % gel Apply to [...] Take 40 mg by mouth once daily. LABORATORY VALUES: WBC (k/uL) Date Value 12/26/2023 8.55 RBC (m/uL) Date Value 12/26/2023 5.22 Hemoglobin (g/dL) Date Value 12/26/2023 14.6 Hematocrit (%) Date Value 12/26/2023 46.3 MCV (fL) Date Value 12/26/2023 88.7 MCH (pg) Date Value 12/26/2023 28.0 MCHC (g/dL) Date Value 12/26/2023 31.5 RDW-CV (%) Date Value 12/26/2023 20.3 (H) Platelet Count (k/uL) Date Value 12/26/2023 203 MPV (fL) Date Value 12/26/2023 10.0 Glucose (mg/dL) Date Value 12/26/2023 209 (H) BUN (mg/dL) Date Value 12/26/2023 22 Creatinine (mg/dL) Date Value 12/26/2023 0.94 Sodium (mmol/L) Date Value 12/26/2023 137 Potassium (mmol/L) Date Value 12/26/2023 4.1 Chloride (mmol/L) Date Value 12/26/2023 101 CO2 (mmol/L) Date Value 12/26/2023 29 Protein, Total (g/dL) Date Value 12/26/2023 7.1 Albumin (g/dL) Date Value 12/26/2023 4.5 Calcium, Total (mg/dL) Date Value 12/26/2023 9.7 Alkaline Phosphatase (U/L) Date Value 12/26/2023 79 Bilirubin, Total (mg/dL) Date Value 12/26/2023 0.2 AST (U/L) Date Value 12/26/2023 16 ALT (U/L) Date Value 12/26/2023 14 DIAGNOSIS: (D50.0) Iron deficiency anemia due to chronic blood loss (primary encounter diagnosis) (R19.5) Positive occult stool blood test PAST MEDICAL HISTORY Diagnosis Date Fe deficiency anemia 08/2023 Iron deficiency anemia due to chronic blood loss 09/04/2023 History reviewed. No pertinent surgical history. Social History Tobacco Use Smoking status: Former Types: Cigarettes Passive exposure: Past Smokeless tobacco: Never Substance Use Topics Alcohol use: Not Currently Drug use: Never History reviewed. No pertinent family history. I spent a total of 20 minutes on the date of the service which included preparing to see the patient, [id number] patient care, completing clinical documentation, performing a medically appropriate examination, ordering medications, tests, or procedures, independently interpreting results (not separately reported), and communicating results to the patient/family/caregiver. Austin Springer MD, CPE Hematology and Oncology Services Provided at: [place], [place] Scribe Attestation: This note was scribed by Ameena Vogt on December 29, 2023 under the direction and supervision of Dr. Austin Springer. I attest that all of the information documented is correct to the best of my knowledge. Provider Attestation: I, Austin Springer MD, attest that all information documented by the above scribe is correct, and was supervised by me and under my direction. CC: Adonay Zhang MD [address] [facility] [address] documented in this encounter [facility] 12-29-2023 Note HNO ID: [id number] Author: AUSTIN SPRINGER MD Service: ? Author Type: Physician Type: Progress Notes Filed: 12/29/2023 18:06 Note Text: NAME: Case, Yunior CLINIC NO.: [id number] DATE OF SERVICE: December 29, 2023 (Meghann) Some elements in this clinic note that are critical to medical decision making have been carefully reviewed and included from a prior clinic note dated: October 20, 2023 (Meghann) Referring Provider: Dr. Adonay Zhang ([facility] in [employer]) Additional Clinicians involved in Yunior Best's care: DIAGNOSIS: Iron deficiency anemia ASSESSMENT: 78 year old man with heme + stools and iron deficiency anemia. He is intolerant to oral iron therapy. Will need IV iron for replacement and diagnostic endoscopic evaluation. Suspect he has recurring ulcer. PLAN: RTC in 8 weeks Labs, including iron studies, a few days prior Plan for iron infusion same day - can cancel if iron studies are stable HPI: CASE HISTORY: Reverse Chronological Order 10/11/2023 - Colonoscopy in [employer] with Dr. Lorenzo: Negative findings 08/25/2023 - Stool for occult blood: Positive 08/11/2023 - Ferritin: 379, Iron: 14, Folate: 27 08/09/2023 - CBC: 8.4 > 8.0 / 31.1 < 321, MCV: 69.6 Updated Visit, December 29, 2023: Yunior returns with Theo. His appetite and energy have improved, he feels better overall after receiving iron infusions. As of 12/25, Hgb is normal at 14.6. Continue monitoring with labs in 8 weeks. Updated Visit, October 20, 2023: Yunior returns today with Heidi and his son, Theo. He has been feeling better. He had a scope done in [employer] - saw nothing of concern according to Heidi. Hgb has increased to 11.8 - up from 9.0. Theo mentions Yunior's health condition got worse when he was taking care of his before she . Initial Visit, September 04, 2023: Yunior Case presents today with his daughter, Heidi, for [...] colonoscopy. 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 REVIEW OF SYSTEMS Per HPI and otherwise negative by full review of organ systems. ECOG PERFORMANCE STATUS: 2 PHYSICAL EXAMINATION: Vitals: BP 165/66 Pulse 57 Temp (Src) 97.5 (Temporal) Resp 18 Wt 229 lb 8 oz (104.1kg) SpO2 94% There is no height or weight on [...] rash, lesions, wounds or petechiae. ALLERGIES: ALLERGIES No Known Allergies MEDICATIONS: ADULT LOW DOSE ASPIRIN ORAL Take by mouth. vitamin B complex (SUPER B COMPLEX ORAL) Take by mouth. POTASSIUM CHLORIDE ORAL Take by mouth. simvastatin (ZOCOR) 20 mg tablet Take 20 mg by mouth daily at bedtime. ALPRAZolam (XANAX) 0.25 mg tablet Take 0.25 mg by mouth at bedtime as needed. Clobetasol Propionate 0.05 % gel Apply to [...] mg by mouth daily with breakfast. metoprolol succin (more content not included)... [facility] 12-26-2023 Note Addended by: TITI CASTANO on: 12/26/2023 10:23 AM Modules accepted: Orders [facility] Work Phone: 12-26-2023 Miscellaneous Notes Addended by: TITI CASTANO on: 12/26/2023 10:23 AM Modules accepted: Orders Dr. Meghann Mojica is coming in for lab work tomorrow 12/26/23 in preparation for an appointment with you on 12/29/23. There are no lab orders available. I have pended orders based on what was ordered in October. Can you please review and sign and add anything else you may want. Thanks Jagruti Caldera RN documented in this encounter [facility] 12-25-[address] Meghann Mojica is coming in for lab work tomorrow 12/26/23 in preparation for an appointment with you on 12/29/23. There are no lab orders available. I have pended orders based on what was ordered in October. Can you please review and sign and add anything else you may want. Thanks Jagruti Caldera RN [facility] 12-25-2023 Telephone encounter Note Opened in error [facility] 12-25-2023 Miscellaneous Notes Opened in error documented in this encounter [facility] 10-20-2023 Instructions Ameena Vogt - 10/20/2023 11:06 AM EDT Obtain results on colonoscopy from [employer] with Dr. Humberto Cee x3 weekly doses, start next week - prefers Fridays RTC in 8 weeks Labs same day, include iron studies Iron infusion same day documented in this encounter [facility] 10-20-2023 History of Presen t illness Narrative Images from the original note were not included. NAME: Case, Yunior [facility] NO.: [id number] DATE OF SERVICE: October 20, 2023 ([facility]) Some elements in this clinic note that are critical to medical decision making have been carefully reviewed and included from a prior clinic note dated: September 04, 2023 ([facility]) Referring Provider: Dr. Adonay Zhang ([facility] in [employer]) Additional Clinicians involved in Yunior Best's care: DIAGNOSIS: Iron deficiency anemia ASSESSMENT: 78 year old man with heme + stools and iron deficiency anemia. He is intolerant to oral iron therapy. Will need IV iron for replacement and diagnostic endoscopic evaluation. Suspect he has recurring ulcer. PLAN: Obtain results of colonoscopy from [employer] with Dr. Humberto Cee x3 weekly doses, start next week - prefers Fridays RTC in 8 weeks Labs same day, include iron studies Iron infusion same day HPI: CASE HISTORY: Reverse Chronological Order 10/11/2023 - Colonoscopy in [employer] with Dr. Lorenzo 08/25/2023 - Stool for occult blood: Positive 08/11/2023 - Ferritin: 379, Iron: 14, Folate: 27 08/09/2023 - CBC: 8.4 > 8.0 / 31.1 < 321, MCV: 69.6 Updated Visit, October 20, 2023: Yunior returns today with Heidi and his son, Theo. He has been feeling better. He had a scope done in [employer] - saw nothing of concern according to Heidi. HGB has increased to 11.8 - up from 9.0. Theo mentions Yunior's health condition got worse when he was taking care of his before she . Initial Visit, September 04, 2023: Yunior Case presents today with his daughter, Heidi, for [...] colonoscopy. 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 REVIEW OF SYSTEMS Per HPI and otherwise negative by full review of organ systems. ECOG PERFORMANCE STATUS: 2 PHYSICAL EXAMINATION: Vitals: BP 182/52 Pulse 55 Temp (Src) 97.2 (Temporal) Resp 18 Wt 227 lb 11.8 oz (103.3kg) SpO2 95% There is no height or weight on [...] rash, lesions, wounds or petechiae. ALLERGIES: ALLERGIES No Known Allergies MEDICATIONS: ADULT LOW DOSE ASPIRIN ORAL Take by mouth. vitamin B complex (SUPER B COMPLEX ORAL) Take by mouth. POTASSIUM CHLORIDE ORAL Take by mouth. simvastatin (ZOCOR) 20 mg tablet Take 20 mg by mouth daily at bedtime. ALPRAZolam (XANAX) 0.25 mg tablet Take 0.25 mg by mouth at bedtime as needed. Clobetasol Propionate 0.05 % gel Apply to [...] Take 40 mg by mouth once daily. LABORATORY VALUES: WBC (k/uL) Date Value 10/20/2023 7.83 RBC (m/uL) Date Value 10/20/2023 5.19 Hemoglobin (g/dL) Date Value 10/20/2023 11.8 (L) Hematocrit (%) Date Value 10/20/2023 42.2 MCV (fL) Date Value 10/20/2023 81.3 MCH (pg) Date Value 10/20/2023 22.7 (L) MCHC (g/dL) Date Value 10/20/2023 28.0 (L) RDW-CV (%) Date Value 10/20/2023 27.8 (H) Platelet Count (k/uL) Date Value 10/20/2023 260 MPV (fL) Date Value 10/20/2023 9.5 Glucose (mg/dL) Date Value 10/20/2023 195 (H) BUN (mg/dL) Date Value 10/20/2023 18 Creatinine (mg/dL) Date Value 10/20/2023 1.25 (H) Sodium (mmol/L) Date Value 10/20/2023 148 (H) Potassium (mmol/L) Date Value 10/20/2023 4.7 Chloride (mmol/L) Date Value 10/20/2023 107 (H) CO2 (mmol/L) Date Value 10/20/2023 29 Protein, Total (g/dL) Date Value 10/20/2023 6.8 Albumin (g/dL) Date Value 10/20/2023 4.5 Calcium, Total (mg/dL) Date Value 10/20/2023 9.7 Alkaline Phosphatase (U/L) Date Value 10/20/2023 79 Bilirubin, Total (mg/dL) Date Value 10/20/2023 0.2 AST (U/L) Date Value 10/20/2023 16 ALT (U/L) Date Value 10/20/2023 13 DIAGNOSIS: (D50.0) Iron deficiency anemia due to chronic blood loss (primary encounter diagnosis) (R19.5) Positive occult stool blood test PAST MEDICAL HISTORY Diagnosis Date Fe deficiency anemia 08/2023 Iron deficiency anemia due to chronic blood loss 09/04/2023 No past surgical history on file. Social History Tobacco Use Smoking status: Former Types: Cigarettes Passive exposure: Past Smokeless tobacco: Never Substance Use Topics Alcohol use: Not Currently Drug use: Never No family history on file. I spent a total of 30 minutes on the date of the service which included preparing to see the patient, [id number] patient care, completing clinical documentation, obtaining and/or reviewing separately obtained history, performing a medically appropriate examination, counseling and educating the patient/family/caregiver, ordering medications, tests, or procedures, independently interpreting results (not separately reported), communicating results to the patient/family/caregiver, and care coordination (not separately reported). Austin Springer MD, CPE Hematology and Oncology Services Provided at: [place], [place] Scribe Attestation: This note was scribed by Ameena Vogt on October 20, 2023 under the direction and supervision of Dr. Austin Springer. I attest that all of the information documented is correct to the best of my knowledge. Provider Attestation: I, Austin Springer MD, attest that all information documented by the above scribe is correct, and was supervised by me and under my direction. CC: Adonay Zhang MD [address] [facility] [address] documented in this encounter [facility] 10-20-2023 Note HNO ID: [id number] Author: AUSTIN SPRINGER MD Service: ? Author Type: Physician Type: Progress Notes Filed: 10/21/2023 15:48 Note Text: NAME: Case, Yunior [facility] NO.: [id number] DATE OF SERVICE: October 20, 2023 ([facility]) Some elements in this clinic note that are critical to medical decision making have been carefully reviewed and included from a prior clinic note dated: September 04, 2023 ([facility]) Referring Provider: Dr. Adonay Zhang ([facility] in [employer]) Additional Clinicians involved in Yunior Best's care: DIAGNOSIS: Iron deficiency anemia ASSESSMENT: 78 year old man with heme + stools and iron deficiency anemia. He is intolerant to oral iron therapy. Will need IV iron for replacement and diagnostic endoscopic evaluation. Suspect he has recurring ulcer. PLAN: Obtain results of colonoscopy from [employer] with Dr. Humberto Cee x3 weekly doses, start next week - prefers Fridays RTC in 8 weeks Labs same day, include iron studies Iron infusion same day HPI: CASE HISTORY: Reverse Chronological Order 10/11/2023 - Colonoscopy in [employer] with Dr. Lorenzo 08/25/2023 - Stool for occult blood: Positive 08/11/2023 - Ferritin: 379, Iron: 14, Folate: 27 08/09/2023 - CBC: 8.4 > 8.0 / 31.1 < 321, MCV: 69.6 Updated Visit, October 20, 2023: Yunior returns today with Heidi and his son, Theo. He has been feeling better. He had a scope done in [employer] - saw nothing of concern according to Heidi. HGB has increased to 11.8 - up from 9.0. Theo mentions Yunior's health condition got worse when he was taking care of his before she . Initial Visit, September 04, 2023: Yunior Case presents today with his daughter, Heidi, for [...] colonoscopy. 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 REVIEW OF SYSTEMS Per HPI and otherwise negative by full review of organ systems. ECOG PERFORMANCE STATUS: 2 PHYSICAL EXAMINATION: Vitals: BP 182/52 Pulse 55 Temp (Src) 97.2 (Temporal) Resp 18 Wt 227 lb 11.8 oz (103.3kg) SpO2 95% There is no height or weight on [...] rash, lesions, wounds or petechiae. ALLERGIES: ALLERGIES No Known Allergies MEDICATIONS: ADULT LOW DOSE ASPIRIN ORAL Take by mouth. vitamin B complex (SUPER B COMPLEX ORAL) Take by mouth. POTASSIUM CHLORIDE ORAL Take by mouth. simvastatin (ZOCOR) 20 mg tablet Take 20 mg by mouth daily at bedtime. ALPRAZolam (XANAX) 0.25 mg tablet Take 0.25 mg by mouth at bedtime as needed. Clobetasol Propionate 0.05 % gel Apply to [...] Take 40 mg by mouth once daily. (more content not included)... [facility] Miscellaneous Notes Patient on 1st time treatment report-non oncology regimen (venofer) Patient holds medicare coverage and no FA available for this treatment. documented in this encounter [facility] 09-08-2023 Note HNO ID: [id number] Author: MARIA LUISA COMER LSW Service: ? Author Type: Expansion Envelope Maker Hand Type: Progress Notes Filed: 09/08/2023 15:50 Note Text: Patient appears on the [facility] First Time Treatment List for a non-oncology treatment. No psychosocial assessment is indicated. SHANICE Arenas [facility] 09-08-2023 History of Presen t illness Narrative Patient appears on the [facility] First Time Treatment List for a non-oncology treatment. No psychosocial assessment is indicated. SHANICE Arenas documented in this encounter [facility] 09-04-2023 Instructions Ameena Vogt - 09/04/2023 12:05 PM EST Labs today, include iron studies Triage call results to [facility] Heidi Plan for IV iron when approved Prefer Monday the , if possible RTC in 6 weeks Labs same day, include iron studies documented in this encounter [facility] 09-04-2023 History of Presen t illness Narrative Images from the original note were not included. NAME: Yunior Best [facility] NO.: [id number] DATE OF SERVICE: September 04, 2023 ([facility]) Referring Provider: Dr. Adonay Zhang ([facility]) Consultation requested by Dr. Zhang for an opinion regarding Mr. Yunior Best, and my final recommendations will be communicated back to the requesting physician by way of shared medical record or letter via [place] mail. Additional Clinicians involved in Yunior Best's care: DIAGNOSIS: Iron deficiency anemia ASSESSMENT: [...] MCV: 69.6 Initial Visit, September 04, 2023: Yunior Best presents today with his daughter, Heidi, [...] colonoscopy. 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 REVIEW OF [...] which included preparing to see the patient, [id number] patient care, completing clinical documentation, obtaining and/or reviewing separately obtained history, performing a medically appropriate examination, counseling and educating the patient/family/caregiver, ordering medications, tests, or procedures, independently interpreting results (not separately reported), communicating results to the patient/family/caregiver, and care coordination (not separately reported). Austin Springer MD, CPE Hematology and Oncology Services Provided at: [place], [place] Scribe Attestation: This note was scribed [...] my direction. CC: Adonay Zhang [address] [facility] [address] Adonay Zhang MD [address] [facility] [address] documented in this encounter [facility] 09-04-2023 Note HNO ID: [id number] Author: AUSTIN SPRINGER MD Service: ? Author Type: Physician Type: Progress Notes Filed: 09/04/2023 19:29 Note Text: NAME: Estephania, Yunior HERNANDE[facility] NO.: [id number] DATE OF SERVICE: September 04, 2023 ([facility]) Referring Provider: Dr. Adonay Zhang ([facility] in [employer]) Consultation requested by Dr. Zhang for an opinion regarding Mr. Yunior Best, and my final recommendations will be communicated back to the requesting physician by way of shared medical record or letter via [place] mail. Additional Clinicians involved in Yunior Best's care: DIAGNOSIS: Iron deficiency anemia ASSESSMENT: [...] MCV: 69.6 Initial Visit, September 04, 2023: Yunior Best presents today with his daughter, Heidi, [...] colonoscopy. 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 REVIEW OF [...] MCH (pg) Jeremi (more content not included)... [facility] 08-29-2023 Note Chief Complaint consultation for [...] Hypercholesterolemia Hyperlipidemia Hyperme (more content not included)... [facility] Comment on above: Result Comment: Elec tronically Signed By: HUMBERTO CRAWLEY, Gwen Whitaker.br\Date and Time Signed: 08/29/23 16:06 EST 11-17-2021 [...] health for screening. CC: Adonay Zhang M.D. [facility] Signed and Approved by: DR GWEN LORENZO . 11/24/2021 10:45:00 [facility] Evaluation + Plan note No data available for this section [facility] Surgery [employer] Evaluation note Diagnosis Iron deficiency anemia due to chronic blood loss- Primary Iron deficiency anemia secondary to blood loss (chronic) Positive occult stool blood test Nonspecific abnormal finding in stool contents Morbid obesity (HCC) Morbid obesity [facility] Iron deficiency anemia due to chronic blood loss- Primary Iron deficiency anemia secondary to blood loss (chronic) [facility] Diagnosis Iron deficiency anemia due to chronic blood loss- Primary Iron deficiency anemia secondary to blood loss (chronic) [facility] Diagnosis Iron deficiency anemia due to chronic blood loss- Primary Iron deficiency anemia secondary to blood loss (chronic) Positive occult stool blood test Nonspecific abnormal finding in stool contents [facility] Diagnosis Iron deficiency anemia due to chronic blood loss- Primary Iron deficiency anemia secondary to blood loss (chronic) [facility] Diagnosis Iron deficiency anemia due to chronic blood loss- Primary Iron deficiency anemia secondary to blood loss (chronic) [facility] Diagnosis Iron deficiency anemia due to chronic blood loss- Primary Iron deficiency anemia secondary to blood loss (chronic) Positive occult stool blood test Nonspecific abnormal finding in stool contents documented in this encounter [facility] Discharge instructions No data available for this section General Surgery [employer] Progress note No data available for this section General Surgery [employer] Summary Purpose Family History No Family History [...] section and content) DATE CREATED AUTHOR 12/27/2017 [facility] DATE CREATED AUTHOR AUTHOR'S ORGANIZ ATION 10/20/2022 [facility] DATE CREATED AUTHOR AUTHOR'S ORGANIZ ATION 10/18/2023 [facility] DATE CREATED AUTHOR AUTHOR'S ORGANIZ ATION 12/31/2023 [facility] Patient Care team informatio n (unrecognized section and content) Hand Finisher Relationship Specialty Start Date End Date Adonay Zhang MD [address] [place] [address] PCP - General Family Medicine 08/24/23 Hand Finisher Relationship Specialty Start Date End Date Adonay Zhang MD [address] [place] [address] PCP - General Family Medicine 08/24/23 Hand Finisher Relationship Specialty Start Date End Date Adonay Zhang MD [address] [place] [address] PCP - General Family Medicine 08/24/23 Hand Finisher Relationship Specialty Start Date End Date Adonay Zhang MD [address] [place] [address] PCP - General Family Medicine 08/24/23 Hand Finisher Relationship Specialty Start Date End Date Adonay Zhang MD [address] [place] [address] PCP - General Family Medicine 08/24/23 Hand Finisher Relationship Specialty Start Date End Date Adonay Zhang MD [address] [place] [address] PCP - General Family Medicine 08/24/23 Hand Finisher Relationship Specialty Start Date End Date Adonay Zhang MD [address] [place] [address] PCP - General Family Medicine 08/24/23 Hand Finisher Relationship Specialty Start Date End Date Adonay Zhang MD [address] [place] [address] PCP - General Family Medicine 08/24/23 Hand Finisher Relationship Specialty Start Date End Date Adonay Zhang MD [address] [place] [address] PCP - General Family Medicine 08/24/23 Hand Finisher Relationship Specialty Start Date End Date Adonay Zhang MD [address] [place] [address] PCP - General Family Medicine 08/24/23 Source Comments (unrecognize d section and content) In the event this informatio n is protected by the [facility] Confidentiality of Alcohol and Drug Abuse Patient Records regulations: The Federal rules restrict any use of the information to criminally investigate or prosecute any alcohol or drug abuse patient.[facility] the event this information is protected by the Federal Confidentiality of Alcohol and Drug Abuse Patient Records regulations: The Federal rules restrict any use of the information to criminally investigate or prosecute any alcohol or drug abuse patient.[facility] Foundation[facility] the event this information is protected by the Federal Confidentiality of Alcohol and Drug Abuse Patient Records regulations: The Federal rules restrict any use of the information to criminally investigate or prosecute any alcohol or drug abuse patient.[facility] Foundation[facility] the event this information is protected by the Federal Confidentiality of Alcohol and Drug Abuse Patient Records regulations: The Federal rules restrict any use of the information to criminally investigate or prosecute any alcohol or drug abuse patient.[facility] Foundation[facility] the event this information is protected by the Federal Confidentiality of Alcohol and Drug Abuse Patient Records regulations: The Federal rules restrict any use of the information to criminally investigate or prosecute any alcohol or drug abuse patient.[facility] Foundation[facility] the event this information is protected by the Federal Confidentiality of Alcohol and Drug Abuse Patient Records regulations: The Federal rules restrict any use of the information to criminally investigate or prosecute any alcohol or drug abuse patient.[facility] Foundation[facility] the event this information is protected by the Federal Confidentiality of Alcohol and Drug Abuse Patient Records regulations: The Federal rules restrict any use of the information to criminally investigate or prosecute any alcohol or drug abuse patient.[facility] Foundation[facility] the event this information is protected by the Federal Confidentiality of Alcohol and Drug Abuse Patient Records regulations: The Federal rules restrict any use of the information to criminally investigate or prosecute any alcohol or drug abuse patient.[facility] Foundation[facility] the event this information is protected by the Federal Confidentiality of Alcohol and Drug Abuse Patient Records regulations: The Federal rules restrict any use of the information to criminally investigate or prosecute any alcohol or drug abuse patient.[facility] Foundation[facility] the event this information is protected by the Federal Confidentiality of Alcohol and Drug Abuse Patient Records regulations: The Federal rules restrict any use of the information to criminally investigate or prosecute any alcohol or drug abuse patient.[facility] FoundationIn the event this information is protected by the Federal Confidentiality of Alcohol and Drug Abuse Patient Records regulations: The Federal rules restrict any use of the information to criminally investigate or prosecute any alcohol or drug abuse patient.[facility] FoundationIn the event this information is protected by the Federal Confidentiality of Alcohol and Drug Abuse Patient Records regulations: The Federal rules restrict any use of the information to criminally investigate or prosecute any alcohol or drug abuse patient.[facility] FoundationIn the event this information is protected by the Federal Confidentiality of Alcohol and Drug Abuse Patient Records regulations: The Federal rules restrict any use of the information to criminally investigate or prosecute any alcohol or drug abuse patient.[facility] Reason for Visit (unrecogniz ed section and content) Reason Comments Anemia New patient consulta tion Reason Comments Benefits Investigation Specialty Diagnoses / Procedures Referred By Contac t Referred To Contact Diagnoses Iron deficiency anemia due to chronic blood loss Procedures IRON SUCROSE INJECTION PER 1 MG Austin Springer MD [address] [place] [address] Gabino Treat Syed [address] [place] [address] Referral ID Status Reason Start Date Expiration Date Visits Requested Visits Authorized [id number] Authorized Patient Cleared INN/SMCP Payor Auth Obtained 09/12/2023 12/11/2023 3 3 Reason Comments Anemia Referral ID Status Reason Start Date Expiration Date Visits Requested Visits Authorized [id number] Authorized Patient Cleared INN/SMCP Payor Auth Obtained 09/12/2023 01/21/2024 3 3 Referral ID Status Reason Start Date Expiration Date Visits Requested Visits Authorized [id number] Authorized Patient Cleared INN/SMCP Payor Auth Obtained 09/12/2023 01/21/2024 6 6 Reason Comments Orders Inactive Administered Medications - up to 3 [...] BE BASED ON THE PRIMARY CLINICAL RECORDS. [facility] [employer] [facility]. provides no warranty or guarantee of the accuracy or completeness of information in this document.
[2024-02-01 14:50] LABS: Internal Control Within Normal Limits; SARS-CoV-2 Ag POSITIVE (NEGATIVE)
== END 2024-02-01 14:23 | disposition home or self-care (01) ==
LOC: LAB 14:22
PROVIDERS: PCP Family Medicine; Visit Provider Family Medicine
DX: J01.90 Acute sinusitis, unspecified (principal)
CPT/HCPCS: 87811

== ENCOUNTER 2024-02-16 09:03 | Outpatient (OUT) | payer MEDICARE, SELFPAY ==
--- OUTSIDE RECORDS SUMMARY | 2024-02-16 09:11 | XMS_ITS | CCD ---
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 Name Role Phone PHYSICIAN, DEFAULT Unavailable Unavailable [...] Unavailable Adonay Zhang MD Primary Care Provider [phone] Gwen LORENZO Attending Unavailable Adonay Zhang Referring Unavailable Gwen LORENZO Attending Unavailable Adonay Zhang MD Primary Care Provider MIRELLA SPRINGEREK Referring Unavailable ADONAY ZHANG Primary Care Unavailable ADONAY ZHANG Primary Care Unavailable ADONAY ZHANG Primary Care Unavailable ABHYANKAR, [place] Attending Unavailable HOY, DAONAY M Primary Care Unavailable ABHYANKAR, [place] Referring [...] Drug allergy Unknown (qualifier value) General Surgery [place] (1 source) No Known Medication Allergies; Translations: [No Known Medication Allergies] Propensity to adverse reactions (disorder) [facility] Repository Medications Current Medications Medication Drug [...] Status: Ordered take 1 capsule by mo [facility] once daily in the morning linaclotide (LINZESS) [...] 2 Chronic Other aftercare (1 source) Other half-way (current) drug therapy; Translations: [OTH MAJOR ACCOUNT REPRESENTATIVE CURRENT DRUG THERAPY] Onset: 3 Episodic Other [...] Onset: 12-14-2021 Episodic Other aftercare (1 source) long term care administrator (current) use of aspirin; Translations: [MAJOR ACCOUNT REPRESENTATIVE CURRENT USE OF ASPIRIN] Onset: 12-15-2021 Episodic Other aftercare (1 source) long term care administrator (current) use of oral hypoglycemic drugs; Translations: [INTERMEDIATE USE ORAL HYPOGLYCEMIC DX] Onset: 12-15-2021 Episodic [...] Test Name Value Interpretation Reference Range Facility [facility] 12-29-2023 CNOVSP Visit (SP) Office (HEMAS[place]) YUNIOR BEST ([id number]) 1945 M Date Time Provider Department 12/29/23 9:45 AM [place] SPRINGER During your visit today, we recorded the following information about you: Temperature Pulse Respiration Blood pressure 97.5 degrees 57/minute 18/minute 165/66 Weight 104.1 kg Austin Springer MD 12/29/2023 6:06 PM Signed NAME: Yunior Best CLINIC NO.: [id number] DATE OF SERVICE: December 29, 2023 (sasha) Some elements in this clinic note that are critical to medical decision making have been carefully reviewed and included from a prior clinic note dated: October 20, 2023 (Meghann) Referring Provider: Dr. Adonay Zhang ([facility] in [place]) Additional Clinicians involved in Yunior Best's care: [...] Reverse Chronological Order 10/11/2023 - Colonoscopy in [place] with Dr. Lorenzo: Negative findings 08/25/2023 - [...] better. He had a scope done in [place] - saw nothing of concern according to [...] colonoscopy. 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 - REVIEW [...] day. glimepiride (more content not included)... Normal [facility] CBC W Auto Differential pane l (Bld)on 12-26-2023 Basophils (Bld) [#/Vol] 0.04 10*3/uL [facility] Basophils/100 WBC (Bld) 0.5 % [facility] Differential cell count method Nom (Bld) Auto [facility] Eosinophils (Bld) [#/Vol] 0.43 10*3/uL [facility] Eosinophils/100 WBC (Bld) 5.0 % [facility] Erythrocyte distribution width (RBC) [Ratio] 20.3 % High 11.5 - 15.0 % [facility] Hematocrit (Bld) [Volume fraction] 46.3 % 39.0 - 51.0 % [facility] Hemoglobin (Bld) [Mass/Vol] 14.6 g/dL 13.0 - 17.0 g/dL [facility] Immature granulocytes (Bld) [#/Vol] 0.04 10*3/uL [facility] Immature granulocytes/100 WBC (Bld) 0.5 % [facility] Interpretation and review of laboratory results Abnormal [facility] Lymphocytes (Bld) [#/Vol] 1.62 10*3/uL [facility] Lymphocytes/100 WBC (Bld) 18.9 % [facility] MCH (RBC) [Entitic mass] 28.0 pg 26.0 - 34.0 pg [facility] MCHC (RBC) [Mass/Vol] 31.5 g/dL 30.5 - 36.0 g/dL [facility] MCV (RBC) [Entitic vol] 88.7 fL 80.0 - 100.0 fL [facility] Monocytes (Bld) [#/Vol] 1.09 10*3/uL High [facility] Monocytes/100 WBC (Bld) 12.7 % [facility] Neutrophils (Bld) [#/Vol] 5.33 10*3/uL [facility] Neutrophils/100 WBC (Bld) 62.4 % [facility] Nucleated RBC (Bld) [#/Vol] [facility] Nucleated RBC/100 WBC (Bld) [Ratio] 0.0 % /100 WBC [facility] Platelet mean volume (Bld) [Entitic vol] 10.0 fL 9.0 - 12.7 fL [facility] Platelets (Bld) [#/Vol] 203 10*3/uL [facility] RBC (Bld) [#/Vol] 5.22 10*6/uL 4.20 - 6.0 0 m/uL [facility] WBC (Bld) [#/Vol] 8.55 10*3/uL [facility] Basophils (Bld) [#/Vol] 0.04 10*3/uL Normal <0.11 [facility] Comment on above: Order Comment: Speci men Type: BLOOD SPECIMENOrdering Facility: [facility] Address: [address] [place] [address] Performed By: #### 5 7021-8 ####[facility] LABCLIA [id number] [place] [address] Basophils/100 WBC (Bld) 0.5 % Normal [facility] Comment on above: Order Comment: Speci men Type: BLOOD SPECIMENOrdering Facility: [facility] Address: [address] [place] [address] Performed By: #### 5 7021-8 ####[facility] LABCLIA [id number] [place] [address] Differential cell count method Nom (Bld) Auto Normal [facility] Comment on above: Order Comment: Speci men Type: BLOOD SPECIMENOrdering Facility: [facility] Address: [address] [place] [address] Performed By: #### 5 7021-8 ####[facility] LABCLIA [id number] [place] [address] Eosinophils (Bld) [#/Vol] 0.43 10*3/uL Normal <0.46 [facility] Comment on above: Order Comment: Speci men Type: BLOOD SPECIMENOrdering Facility: [facility] Address: [address] [place] [address] Performed By: #### 5 7021-8 ####[facility] LABCLIA [id number] [place] [address] Eosinophils/100 WBC (Bld) 5.0 % Normal [facility] Comment on above: Order Comment: Speci men Type: BLOOD SPECIMENOrdering Facility: [facility] Address: [address] [place] [address] Performed By: #### 5 7021-8 ####[facility] LABCLIA [id number] [place] [address] Erythrocyte distribution width (RBC) [Ratio] 20.3 % High 11.5-15.0 [facility] Comment on above: Order Comment: Speci men Type: BLOOD SPECIMENOrdering Facility: [facility] Address: [address] [place] [address] Performed By: #### 5 7021-8 ####[facility] LABCLIA [id number] [place] [address] Hematocrit (Bld) [Volume fraction] 46.3 % Normal 39.0-51.0 [facility] Comment on above: Order Comment: Speci men Type: BLOOD SPECIMENOrdering Facility: [facility] Address: [address] [place] [address] Performed By: #### 5 7021-8 ####[facility] LABIA [id number] [place] [address] Hemoglobin (Bld) [Mass/Vol] 14.6 g/dL Normal 13.0-17.0 [facility] Comment on above: Order Comment: Speci men Type: BLOOD SPECIMENOrdering Facility: [facility] Address: [address] [place] [address] Performed By: #### 5 7021-8 ####[facility] LABIA [id number] [place] [address] Immature granulocytes (Bld) [#/Vol] 0.04 10*3/uL Normal <0.10 [facility] Comment on above: Order Comment: Speci men Type: BLOOD SPECIMENOrdering Facility: [facility] Address: [address] [place] [address] Performed By: #### 5 7021-8 ####[facility] LABCLIA [id number] [place] [address] Immature granulocytes/100 WBC (Bld) 0.5 % Normal [facility] Comment on above: Order Comment: Speci men Type: BLOOD SPECIMENOrdering Facility: [facility] Address: [address] [place] [address] Performed By: #### 5 7021-8 ####[facility] LABCLIA [id number] [place] [address] Lymphocytes (Bld) [#/Vol] 1.62 10*3/uL Normal 1.00-4.00 [facility] Comment on above: Order Comment: Speci men Type: BLOOD SPECIMENOrdering Facility: [facility] Address: [address] [place] [address] Performed By: #### 5 7021-8 ####[facility] LABCLIA [id number] [place] [address] Lymphocytes/100 WBC (Bld) 18.9 % Normal [facility] Comment on above: Order Comment: Speci men Type: BLOOD SPECIMENOrdering Facility: [facility] Address: [address] [place] [address] Performed By: #### 5 7021-8 ####[facility] LABCLIA [id number] [place] [address] MCH (RBC) [Entitic mass] 28.0 pg Normal 26.0-34.0 [facility] Comment on above: Order Comment: Speci men Type: BLOOD SPECIMENOrdering Facility: [facility] Address: [address] [place] [address] Performed By: #### 5 7021-8 ####[facility] LABIA [id number] [place] [address] MCHC (RBC) [Mass/Vol] 31.5 g/dL Normal 30.5-36.0 [facility] Comment on above: Order Comment: Speci men Type: BLOOD SPECIMENOrdering Facility: [facility] Address: [address] [place] [address] Performed By: #### 5 7021-8 ####[facility] LABCLIA [id number] [place] [address] MCV (RBC) [Entitic vol] 88.7 fL Normal 80.0-100.0 [facility] Comment on above: Order Comment: Speci men Type: BLOOD SPECIMENOrdering Facility: [facility] Address: [address] [place] [address] Performed By: #### 5 7021-8 ####[facility] LABCLIA [id number] [place] [address] Monocytes (Bld) [#/Vol] 1.09 10*3/uL High <0.87 [facility] Comment on above: Order Comment: Speci men Type: BLOOD SPECIMENOrdering Facility: [facility] Address: [address] [place] [address] Performed By: #### 5 7021-8 ####[facility] LABCLIA [id number] [place] [address] Monocytes/100 WBC (Bld) 12.7 % Normal [facility] Comment on above: Order Comment: Speci men Type: BLOOD SPECIMENOrdering Facility: [facility] Address: [address] [place] [address] Performed By: #### 5 7021-8 ####[facility] LABCLIA [id number] [place] [address] Neutrophils (Bld) [#/Vol] 5.33 10*3/uL Normal 1.45-7.50 [facility] Comment on above: Order Comment: Speci men Type: BLOOD SPECIMENOrdering Facility: [facility] Address: [address] [place] [address] Performed By: #### 5 7021-8 ####[facility] LABCLIA [id number] [place] [address] Neutrophils/100 WBC (Bld) 62.4 % Normal [facility] Comment on above: Order Comment: Speci men Type: BLOOD SPECIMENOrdering Facility: [facility] Address: [address] [place] [address] Performed By: #### 5 7021-8 ####[facility] LABCLIA [id number] [place] [address] Nucleated RBC (Bld) [#/Vol] 10*3/uL Normal <0.01 [facility] Comment on above: Order Comment: Speci men Type: BLOOD SPECIMENOrdering Facility: [facility] Address: [address] [place] [address] Performed By: #### 5 7021-8 ####[facility] LABCLIA [id number] [place] [address] Nucleated RBC/100 WBC (Bld) [Ratio] 0.0 /100 WBC Normal [facility] Comment on above: Order Comment: Speci men Type: BLOOD SPECIMENOrdering Facility: [facility] Address: [address] [place] [address] Performed By: #### 5 7021-8 ####[facility] LABCLIA [id number] [place] [address] Platelet mean volume (Bld) [Entitic vol] 10.0 fL Normal 9.0-12.7 [facility] Comment on above: Order Comment: Speci men Type: BLOOD SPECIMENOrdering Facility: [facility] Address: [address] [place] [address] Performed By: #### 5 7021-8 ####[facility] LABCLIA [id number] [place] [address] Platelets (Bld) [#/Vol] 203 10*3/uL Normal 150-400 [facility] Comment on above: Order Comment: Speci men Type: BLOOD SPECIMENOrdering Facility: [facility] Address: [address] [place] [address] Performed By: #### 5 7021-8 ####[facility] LABCLIA [id number] [place] [address] RBC (Bld) [#/Vol] 5.22 10*6/uL Normal 4.20-6.00 [facility] Comment on above: Order Comment: Speci men Type: BLOOD SPECIMENOrdering Facility: [facility] Address: [address] [place] [address] Performed By: #### 5 7021-8 ####[facility] LABCLIA [id number] [place] [address] WBC (Bld) [#/Vol] 8.55 10*3/uL Normal 3.70-11.00 [facility] Comment on above: Order Comment: Speci men Type: BLOOD SPECIMENOrdering Facility: [facility] Address: [address] [place] [address] Performed By: #### 5 7021-8 ####[facility] LABCLIA [id number] [place] [address] Comprehensive metabolic 2000 panelon 12-26-2023 Albumin [Mass/Vol] 4.5 g/dL Normal 3.9-4.9 [facility] Comment on above: Order Comment: Speci men Type: BLOOD SPECIMENOrdering Facility: [facility] Address: [address] [place] [address] Performed By: #### 2 4323-8 ####[facility] LABCLIA [id number] [place] [address] ALP [Catalytic activity/Vol] 79 U/L Normal 38-113 [facility] Comment on above: Order Comment: Speci men Type: BLOOD SPECIMENOrdering Facility: [facility] Address: [address] [place] [address] Performed By: #### 2 4323-8 ####[facility] LABCLIA [id number] [place] [address] ALT [Catalytic activity/Vol] 14 U/L Normal 10-54 [facility] Comment on above: Order Comment: Speci men Type: BLOOD SPECIMENOrdering Facility: [facility] Address: [address] [place] [address] Performed By: #### 2 4323-8 ####[facility] LABCLIA [id number] [place] [address] Anion gap [Moles/Vol] 7 mmol/L Low 8-15 [facility] Comment on above: Order Comment: Speci men Type: BLOOD SPECIMENOrdering Facility: [facility] Address: [address] [place] [address] Performed By: #### 2 4323-8 ####[facility] LABCLIA [id number] [place] [address] AST [Catalytic activity/Vol] 16 U/L Normal 14-40 [facility] Comment on above: Order Comment: Speci men Type: BLOOD SPECIMENOrdering Facility: [facility] Address: [address] [place] [address] Performed By: #### 2 4323-8 ####[facility] LABCLIA [id number] [place] [address] Bilirubin [Mass/Vol] 0.2 mg/dL Normal 0.2-1.3 [facility] Comment on above: Order Comment: Speci men Type: BLOOD SPECIMENOrdering Facility: [facility] Address: [address] [place] [address] Performed By: #### 2 4323-8 ####[facility] LABCLIA [id number] [place] [address] Calcium [Mass/Vol] 9.7 mg/dL Normal 8.5-10.2 [facility] Comment on above: Order Comment: Speci men Type: BLOOD SPECIMENOrdering Facility: [facility] Address: [address] [place], [place] [address] Performed By: #### 2 4323-8 ####[facility] LABCLIA [id number] [place] [address] Chloride [Moles/Vol] 101 mmol/L Normal 98-107 [facility] Comment on above: Order Comment: Speci men Type: BLOOD SPECIMENOrdering Facility: [facility] Address: [address] [place] [address] Performed By: #### 2 4323-8 ####[facility] LABCLIA [id number] [place] [address] CO2 [Moles/Vol] 29 mmol/L Normal 22-30 [facility] Comment on above: Order Comment: Speci men Type: BLOOD SPECIMENOrdering Facility: [facility] Address: [address] [place] [address] Performed By: #### 2 4323-8 ####[facility] LABCLIA [id number] [place] [address] Creatinine [Mass/Vol] 0.94 mg/dL Normal 0.73-1.22 [facility] Comment on above: Order Comment: Speci men Type: BLOOD SPECIMENOrdering Facility: [facility] Address: [address] [place] [address] Performed By: #### 2 4323-8 ####[facility] LABCLIA [id number] [place] [address] Creatinine and Glomerular filtration rate.predicted panel (S/P/Bld) 83 mL/min/1.73m??? Normal >=60 [facility] Comment on above: Order Comment: Speci men Type: BLOOD SPECIMENOrdering Facility: [facility] Address: [address] [place] [address] Result Comment: Odette mated Glomerular Filtration Rate [...] actual GFR. Performed By: #### 2 4323-8 ####[facility] LABCLIA [id number] [place] [address] Glucose [Mass/Vol] 209 mg/dL High 74-99 [facility] Comment on above: Order Comment: Speci men Type: BLOOD SPECIMENOrdering Facility: [facility] Address: [address] [place] [address] Result Comment: The [place] [employer] (ADA) provides guidance for cutoff [...] Standards of Medical Care in Diabetes 2016, [place] [employer]. Diabetes Care. 2016.39(Suppl 1). Performed By: #### 2 4323-8 ####[facility] LABCLIA [id number] [place] [address] Potassium [Moles/Vol] 4.1 mmol/L Normal 3.7-5.1 [facility] Comment on above: Order Comment: Speci men Type: BLOOD SPECIMENOrdering Facility: [facility] Address: [address] [place] [address] Performed By: #### 2 4323-8 ####[facility] LABCLIA [id number] [place] [address] Protein [Mass/Vol] 7.1 g/dL Normal 6.3-8.0 [facility] Comment on above: Order Comment: Speci men Type: BLOOD SPECIMENOrdering Facility: [facility] Address: [address] [place], [place] [address] Performed By: #### 2 4323-8 ####[facility] LABCLIA [id number] [place] [address] Sodium [Moles/Vol] 137 mmol/L Normal 136-144 [facility] Comment on above: Order Comment: Speci men Type: BLOOD SPECIMENOrdering Facility: [facility] Address: [address] [place] [address] Performed By: #### 2 4323-8 ####[facility] LABCLIA [id number] [place] [address] Urea nitrogen [Mass/Vol] 22 mg/dL Normal 9-24 [facility] Comment on above: Order Comment: Speci men Type: BLOOD SPECIMENOrdering Facility: [facility] Address: [address] [place] [address] Performed By: #### 2 4323-8 ####[facility] LABCLIA [id number] [place] [address] Ferritin SerPl-mCncon 2023 Ferritin [Mass/Vol] 57.5 ng/mL Normal 30.3-565.7 [facility] Comment on above: Order Comment: Speci men Type: BLOOD SPECIMENOrdering Facility: [facility] Address: [address] [place] [address] Performed By: #### 5 0190-8, 2276-4, 2132-9, 2284-8 ####[facility] LABCLIA [id number] [place] [address] [place] Folate SerPl-mCncon 12-26-19 24 Folate [Mass/Vol] ng/mL Normal >4.7 [facility] Comment on above: Order Comment: Speci men Type: BLOOD SPECIMENOrdering Facility: [facility] Address: [address] [place] [address] Result Comment: A re sult of > 20 ng/mL is not necessarily indicative of a pathologic or treatable condition: it reflects a limitation of the test methodology. Assay reference range: 4.8 to 24.2 ng/mL. Suitable for detection of folate deficiency. Reference: Folate III (Folate III) [package insert V 1.0 [place]]. [facility], [place], [place]: May 2015. Performed By: #### 5 0190-8, 4, 2132-03, 2284-02 ####[facility] LABCLIA [id number] [place] [id number] [place] Iron and Iron binding capaci panel 12-26-2023 Iron [Mass/Vol] 73 ug/dL Normal 41-186 [facility] Comment on above: Order Comment: Speci men Type: BLOOD SPECIMENOrdering Facility: [facility] Address: [address] [place] [address] Performed By: #### 5 0190-8, 2275-10, 2132-03, 2284-02 ####[facility] LABIA [id number] [place] [address] [place] Iron binding capacity [Mass/Vol] 355 ug/dL Normal 232-386 [facility] Comment on above: Order Comment: Speci men Type: BLOOD SPECIMENOrdering Facility: [facility] Address: [address] [place] [address] Performed By: #### 5 0190-8, 2275-10, 2132-03, 2284-02 ####[facility] LABIA [id number] [place] [address] [place] Iron/TIBC [Molar ratio] 20.6 % Normal 15.0-57.0 [facility] Comment on above: Order Comment: Speci men Type: BLOOD SPECIMENOrdering Facility: [facility] Address: [address] [place] [address] Performed By: #### 5 0190-8, 2275-10, 2132-03, 2284-02 ####[facility] LABCLIA [id number] [place] [id number] [place] Vit B12 [facility] 024 Cobalamin (Vitamin B12) [Mass/Vol] 582 pg/mL Normal 232-1245 [facility] Comment on above: Order Comment: Speci men Type: BLOOD SPECIMENOrdering Facility: [facility] Address: [address] [place] [address] Performed By: #### 5 0190-8, 2276-4, 2132-9, 2284-8 ####[facility] LABCLIA [id number] [address] [id number] [id number] [facility] CNPNon 12-25-2023 CNPN Telephone (HEMTSA) ESTEPHANIAYUNIOR Juani ([id number]) 1945 M Date Time Provider Department 12/25/23 [...] Encounter Status:Closed by ALICIA PIRES on 12/25/23 [facility] CNPN Telephone (HEMTSA) ESTEPHANIAYUNIOR ([id number]) 1945 M Date Time Provider Department 12/25/23 [...] loss [D50.0] Order(s):FOLATE, SERUM [SQSERFOL] Order #: [id number] FUTURE VITAMIN B12 [SQB12] Order #: [id number] FUTURE IRON AND TIBC [SQIRON] Order #: [id number] FUTURE COMPLETE BLOOD COUNT AND DIFFERENTIAL [SQCBCDIF] Order #: [id number] FUTURE COMPREHENSIVE METABOLIC PANEL [SQCMP] Order #: [id number] FUTURE IRON AND TIBC [SQIRON] Order #: [id number] FUTURE FERRITIN [SQFERR] Order #: [id number] FUTURE Prescriptions as of 12/26/2023 - ADULT [...] Status:Closed by CATRACHITA CALDERA on 12/26/23 Normal [facility] CBC W Auto Differential pane l (Bld)on 10-20-2023 Basophils (Bld) [#/Vol] 0.04 10*3/uL Normal <0.11 [facility] Comment on above: Order Comment: Speci men Type: BLOOD SPECIMENOrdering Facility: [facility] Address: [address] [place] [address] Performed By: #### 5 7021-8 ####[facility] LABCLIA [id number] [place] [address] Basophils/100 WBC (Bld) 0.5 % Normal [facility] Comment on above: Order Comment: Speci men Type: BLOOD SPECIMENOrdering Facility: [facility] Address: [address] [place] [address] Performed By: #### 5 7021-8 ####[facility] LABCLIA [id number] [place] [address] Differential cell count method Nom (Bld) Auto Normal [facility] Comment on above: Order Comment: Speci men Type: BLOOD SPECIMENOrdering Facility: [facility] Address: [address] [place] [address] Performed By: #### 5 7021-8 ####[facility] LABCLIA [id number] [place] [address] Eosinophils (Bld) [#/Vol] 0.41 10*3/uL Normal <0.46 [facility] Comment on above: Order Comment: Speci men Type: BLOOD SPECIMENOrdering Facility: [facility] Address: [address] [place] [address] Performed By: #### 5 7021-8 ####[facility] [id number] [place] [address] Eosinophils/100 WBC (Bld) 5.2 % Normal [facility] Comment on above: Order Comment: Speci men Type: BLOOD SPECIMENOrdering Facility: [facility] Address: [address] [place] [address] Performed By: #### 5 7021-8 ####[facility]CLIA [id number] [place] [address] Erythrocyte distribution width (RBC) [Ratio] 27.8 % High 11.5-15.0 [facility] Comment on above: Order Comment: Speci men Type: BLOOD SPECIMENOrdering Facility: [facility] Address: [address] [place] [address] Performed By: #### 5 7021-8 ####[facility] LABCLIA [id number] [place] [address] Hematocrit (Bld) [Volume fraction] 42.2 % Normal 39.0-51.0 [facility] Comment on above: Order Comment: Speci men Type: BLOOD SPECIMENOrdering Facility: [facility] Address: [address] [place] [address] Performed By: #### 5 7021-8 ####[facility] LABCLIA [id number] [place] [address] Hemoglobin (Bld) [Mass/Vol] 11.8 g/dL Low 13.0-17.0 [facility] Comment on above: Order Comment: Speci men Type: BLOOD SPECIMENOrdering Facility: [facility] Address: [address] [place] [address] Performed By: #### 5 7021-8 ####[facility] LABCLIA [id number] [place] [address] Immature granulocytes (Bld) [#/Vol] 10*3/uL Normal <0.10 [facility] Comment on above: Order Comment: Speci men Type: BLOOD SPECIMENOrdering Facility: [facility] Address: [address] [place] [address] Performed By: #### 5 7021-8 ####[facility] LABCLIA [id number] [place] [address] Immature granulocytes/100 WBC (Bld) 0.3 % Normal [facility] Comment on above: Order Comment: Speci men Type: BLOOD SPECIMENOrdering Facility: [facility] Address: [address] [place] [address] Performed By: #### 5 7021-8 ####[facility] LABCLIA [id number] [place] [address] Lymphocytes (Bld) [#/Vol] 1.68 10*3/uL Normal 1.00-4.00 [facility] Comment on above: Order Comment: Speci men Type: BLOOD SPECIMENOrdering Facility: [facility] Address: [address] [place] [address] Performed By: #### 5 7021-8 ####[facility] LABCLIA [id number] [place] [address] Lymphocytes/100 WBC (Bld) 21.5 % Normal [facility] Comment on above: Order Comment: Speci men Type: BLOOD SPECIMENOrdering Facility: [facility] Address: [address] [place] [address] Performed By: #### 5 7021-8 ####[facility] LABCLIA [id number] [place] [address] MCH (RBC) [Entitic mass] 22.7 pg Low 26.0-34.0 [facility] Comment on above: Order Comment: Speci men Type: BLOOD SPECIMENOrdering Facility: [facility] Address: [address] [place] [address] Performed By: #### 5 7021-8 ####[facility] LABCLIA [id number] [place] [address] MCHC (RBC) [Mass/Vol] 28.0 g/dL Low 30.5-36.0 [facility] Comment on above: Order Comment: Speci men Type: BLOOD SPECIMENOrdering Facility: [facility] Address: [address] [place] [address] Performed By: #### 5 7021-8 ####[facility] LABCLIA [id number] [place] [address] MCV (RBC) [Entitic vol] 81.3 fL Normal 80.0-100.0 [facility] Comment on above: Order Comment: Speci men Type: BLOOD SPECIMENOrdering Facility: [facility] Address: [address] [place] [address] Performed By: #### 5 7021-8 ####[facility] LABCLIA [id number] [place] [address] Monocytes (Bld) [#/Vol] 0.76 10*3/uL Normal <0.87 [facility] Comment on above: Order Comment: Speci men Type: BLOOD SPECIMENOrdering Facility: [facility] Address: [address] [place] [address] Performed By: #### 5 7021-8 ####[facility] LABCLIA [id number] [place] [address] Monocytes/100 WBC (Bld) 9.7 % Normal [facility] Comment on above: Order Comment: Speci men Type: BLOOD SPECIMENOrdering Facility: [facility] Address: [address] [place] [address] Performed By: #### 5 7021-8 ####[facility] LABCLIA [id number] [place] [address] Neutrophils (Bld) [#/Vol] 4.92 10*3/uL Normal 1.45-7.50 [facility] Comment on above: Order Comment: Speci men Type: BLOOD SPECIMENOrdering Facility: [facility] Address: [address] [place] [address] Performed By: #### 5 7021-8 ####[facility] LABCLIA [id number] [place] [address] Neutrophils/100 WBC (Bld) 62.8 % Normal [facility] Comment on above: Order Comment: Speci men Type: BLOOD SPECIMENOrdering Facility: [facility] Address: [address] [place] [address] Performed By: #### 5 7021-8 ####[facility] LABCLIA [id number] [place] [address] Nucleated RBC (Bld) [#/Vol] 10*3/uL Normal <0.01 [facility] Comment on above: Order Comment: Speci men Type: BLOOD SPECIMENOrdering Facility: [facility] Address: [address] [place] [address] Performed By: #### 5 7021-8 ####[facility] LABCLIA [id number] [place] [address] Nucleated RBC/100 WBC (Bld) [Ratio] 0.0 /100 WBC Normal [facility] Comment on above: Order Comment: Speci men Type: BLOOD SPECIMENOrdering Facility: [facility] Address: [address] [place] [address] Performed By: #### 5 7021-8 ####[facility] LABCLIA [id number] [place] [address] Platelet mean volume (Bld) [Entitic vol] 9.5 fL Normal 9.0-12.7 [facility] Comment on above: Order Comment: Speci men Type: BLOOD SPECIMENOrdering Facility: [facility] Address: [address] [place] [address] Performed By: #### 5 7021-8 ####[facility] LABCLIA [id number] [place] [address] Platelets (Bld) [#/Vol] 260 10*3/uL Normal 150-400 [facility] Comment on above: Order Comment: Speci men Type: BLOOD SPECIMENOrdering Facility: [facility] Address: [address] [place] [address] Performed By: #### 5 7021-8 ####[facility] LABCLIA [id number] [place] [address] RBC (Bld) [#/Vol] 5.19 10*6/uL Normal 4.20-6.00 [facility] Comment on above: Order Comment: Speci men Type: BLOOD SPECIMENOrdering Facility: [facility] Address: [address] [place] [address] Performed By: #### 5 7021-8 ####[facility] LABIA [id number] [place] [address] WBC (Bld) [#/Vol] 7.83 10*3/uL Normal 3.70-11.00 [facility] Comment on above: Order Comment: Speci men Type: BLOOD SPECIMENOrdering Facility: [facility] Address: [address] [place] [address] Performed By: #### 5 7021-8 ####[facility] LABCLIA [id number] [place] [address] CNOVSPon 10-20-2023 CNOVSP Visit (SP) Office (HEMASA) YUNIOR BEST ([id number]) 1945 M Date Time Provider Department 10/20/23 11:00 AM [facility] During your visit today, we recorded the following information about you: Temperature Pulse Respiration Blood pressure 97.2 degrees 55/minute 18/minute 182/52 Weight 103.3 kg Austin Springer MD 10/21/2023 3:48 PM Signed NAME: Yunior Best [facility] NO.: [id number] DATE OF SERVICE: October 20, 2023 (Meghann) Some elements in this clinic note that are critical to medical decision making have been carefully reviewed and included from a prior clinic note dated: September 04, 2023 (Meghann) Referring Provider: Dr. Adonay Zhang ([facility]) Additional Clinicians involved in Yunior Best's care: DIAGNOSIS: Iron deficiency anemia ASSESSMENT: 78 year old man with heme + stools and iron deficiency anemia. He is intolerant to oral iron therapy. Will need IV iron for replacement and diagnostic endoscopic evaluation. Suspect he has recurring ulcer. PLAN: Obtain results of colonoscopy from [place] with Dr. Humberto Cee x3 weekly doses, start next week - prefers Fridays RTC in 8 weeks Labs same day, include iron studies Iron infusion same day - HPI: CASE HISTORY: Reverse Chronological Order 10/11/2023 - Colonoscopy in [place] with Dr. Lorenzo 08/25/2023 - Stool for occult blood: Positive 08/11/2023 - Ferritin: 379, Iron: 14, Folate: 27 08/09/2023 - CBC: 8.4 > 8.0 / 31.1 < 321, MCV: 69.6 Updated Visit, October 20, 2023: Yunior returns today with Heidi and his son, Theo. He has been feeling better. He had a scope done in [place] - saw nothing of concern according to [...] colonoscopy. 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 - REVIEW [...] by mouth (more content not included)... Normal [facility] Comprehensive metabolic 2000 panelon 10-20-2023 Albumin [Mass/Vol] 4.5 g/dL Normal 3.9-4.9 [facility] Comment on above: Order Comment: Speci men Type: BLOOD SPECIMENOrdering Facility: [facility] Address: [address] [place], [place] [address] Performed By: #### 2 4323-8 ####[facility] LABCLIA [id number] [place] [address] ALP [Catalytic activity/Vol] 79 U/L Normal 38-113 [facility] Comment on above: Order Comment: Speci men Type: BLOOD SPECIMENOrdering Facility: [facility] Address: [address] [place] [address] Performed By: #### 2 4323-8 ####[facility] LABCLIA [id number] [place] [address] ALT [Catalytic activity/Vol] 13 U/L Normal 10-54 [facility] Comment on above: Order Comment: Speci men Type: BLOOD SPECIMENOrdering Facility: [facility] Address: [address] [address] Performed By: #### 2 4323-8 ####[facility] LABCLIA [id number] [place] [address] Anion gap [Moles/Vol] 12 mmol/L Normal 9-18 [facility] Comment on above: Order Comment: Speci men Type: BLOOD SPECIMENOrdering Facility: [facility] Address: [address] [place] [address] Performed By: #### 2 4323-8 ####[facility] LABCLIA [id number] [place] [address] AST [Catalytic activity/Vol] 16 U/L Normal 14-40 [facility] Comment on above: Order Comment: Speci men Type: BLOOD SPECIMENOrdering Facility: [facility] Address: [address] [place] [address] Performed By: #### 2 4323-8 ####[facility] LABCLIA [id number] [place] [address] Bilirubin [Mass/Vol] 0.2 mg/dL Normal 0.2-1.3 [facility] Comment on above: Order Comment: Speci men Type: BLOOD SPECIMENOrdering Facility: [facility] Address: [address] [place] [address] Performed By: #### 2 4323-8 ####[facility] LABCLIA [id number] [place] [address] Calcium [Mass/Vol] 9.7 mg/dL Normal 8.5-10.2 [facility] Comment on above: Order Comment: Speci men Type: BLOOD SPECIMENOrdering Facility: [facility] Address: [address] [place] [address] Performed By: #### 2 4323-8 ####[facility] LABCLIA [id number] [place] [address] Chloride [Moles/Vol] 107 mmol/L High 97-105 [facility] Comment on above: Order Comment: Speci men Type: BLOOD SPECIMENOrdering Facility: [facility] Address: [address] [place] [address] Performed By: #### 2 4323-8 ####[facility] LABCLIA [id number] [place] [address] CO2 [Moles/Vol] 29 mmol/L Normal 22-30 [facility] Comment on above: Order Comment: Speci men Type: BLOOD SPECIMENOrdering Facility: [facility] Address: [address] [place] [address] Performed By: #### 2 4323-8 ####[facility] LABCLIA [id number] [place] [address] Creatinine [Mass/Vol] 1.25 mg/dL High 0.73-1.22 [facility] Comment on above: Order Comment: Speci men Type: BLOOD SPECIMENOrdering Facility: [facility] Address: [address] [place] [address] Performed By: #### 2 4323-8 ####[facility] LABCLIA [id number] [place] [address] Creatinine and Glomerular filtration rate.predicted panel (S/P/Bld) 59 mL/min/1.73m??? Low >=60 [facility] Comment on above: Order Comment: Speci men Type: BLOOD SPECIMENOrdering Facility: [facility] Address: [address] [place] [address] Result Comment: Odette mated Glomerular Filtration Rate [...] actual GFR. Performed By: #### 2 4323-8 ####[facility] LABCLIA [id number] [place] [address] Glucose [Mass/Vol] 195 mg/dL High 74-99 [facility] Comment on above: Order Comment: Speci men Type: BLOOD SPECIMENOrdering Facility: [facility] Address: [address] [place] [address] Result Comment: The [place] [employer] Association (ADA) provides guidance for cutoff [...] Standards of Medical Care in Diabetes 2016, [place] [employer]. Diabetes Care. 2016.39(Suppl 1). Performed By: #### 2 4323-8 ####[facility] LABCLIA [id number] [place] [address] Potassium [Moles/Vol] 4.7 mmol/L Normal 3.7-5.1 [facility] Comment on above: Order Comment: Speci men Type: BLOOD SPECIMENOrdering Facility: [facility] Address: [address] [place], [place] [address] Performed By: #### 2 4323-8 ####[facility] LABCLIA [id number] [place] [address] Protein [Mass/Vol] 6.8 g/dL Normal 6.3-8.0 [facility] Comment on above: Order Comment: Speci men Type: BLOOD SPECIMENOrdering Facility: [facility] Address: [address] [place] [address] Performed By: #### 2 4323-8 ####[facility] LABCLIA [id number] [place] [address] Sodium [Moles/Vol] 148 mmol/L High 136-144 [facility] Comment on above: Order Comment: Speci men Type: BLOOD SPECIMENOrdering Facility: [facility] Address: [address] [place] [address] Performed By: #### 2 4323-8 ####[facility] LABCLIA [id number] [place] [address] Urea nitrogen [Mass/Vol] 18 mg/dL Normal 9-24 [facility] Comment on above: Order Comment: Speci men Type: BLOOD SPECIMENOrdering Facility: [facility] Address: [address] [place] [address] Performed By: #### 2 4323-8 ####[facility] LABCLIA [id number] [place] [address] Ferritin SerPl-mCncon 2023 Ferritin [Mass/Vol] 42.5 ng/mL Normal 30.3-565.7 [facility] Comment on above: Order Comment: Speci men Type: BLOOD SPECIMENOrdering Facility: [facility] Address: [address] [place] [address] Performed By: #### 2 132-9, 08588-7, 2276-4, 2284-8 ####[facility] LABCLIA [id number] [place] [address] [place] Folate SerPl-mCncon 10-20-19 24 Folate [Mass/Vol] ng/mL Normal >4.7 [facility] Comment on above: Order Comment: Speci men Type: BLOOD SPECIMENOrdering Facility: [facility] Address: [address] [place] [address] Result Comment: A re sult of > 20 ng/mL is not necessarily indicative of a pathologic or treatable condition: it reflects a limitation of the test methodology. Assay reference range: 4.8 to 24.2 ng/mL. Suitable for detection of folate deficiency. Reference: Folate III (Folate III) [package insert V 1.0 [place]]. [facility], [place], [place]: May 2015. Performed By: #### 2 132-9, 79158-6, 6-4, 2283-8 ####[facility] LABIA [id number] [place] [id number] [place] Iron and Iron binding capaci ty panelon 10-20-2023 Iron [Mass/Vol] 34 ug/dL Low 41-186 [facility] Comment on above: Order Comment: Speci men Type: BLOOD SPECIMENOrdering Facility: [facility] Address: [address] [place] [address] Performed By: #### 2 132-9, 04510-0, 2275-4, 8 ####[facility] [id number] [place] [address] [place] Iron binding capacity [Mass/Vol] 399 ug/dL High 232-386 [facility] Comment on above: Order Comment: Speci men Type: BLOOD SPECIMENOrdering Facility: [facility] Address: [address] [place] [address] Performed By: #### 2 132-9, 81652-2, 6-4, 8 ####[facility] [id number] [place] [address] [place] Iron/TIBC [Molar ratio] 8.5 % Low 15.0-57.0 [facility] Comment on above: Order Comment: Speci men Type: BLOOD SPECIMENOrdering Facility: [facility] Address: [address] [place] [address] Performed By: #### 2 132-9, 86704-0, 2275-4, 8 ####[facility] LABIA [id number] [place] [address] [place] Vit B12 SerPl-mCncon 024 Cobalamin (Vitamin B12) [Mass/Vol] 626 pg/mL Normal 232-1245 [facility] Comment on above: Order Comment: Speci men Type: BLOOD SPECIMENOrdering Facility: [facility] Address: [address] [address] Performed By: #### 2 132-9, 18721-1, 2276-4, 2284-8 ####[facility] LABCLIA [id number] [facility] [id number] [place] [address] [place] Operative Reporton Operative Report [id number]#1 .00TIFF Normal [facility] Lab Reportson 10-11-2023 Lab Reports [id number]#1 .00TIFF Normal [facility] Insurance Correspondenceon 0 09-28-2023 Insurance Correspondence [id number] 1.00TIFF Normal [facility] CNPNon 09-15-2023 CNPN Telephone (HEMTSA) CASE,YUNIOR Gloria ([id number]) 1945 M Date Time Provider Department 09/15/23 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 Allergies As of Date: 09/15/2023 (Not on File) Date Reviewed: 09/04/2023 Reviewed by: Werner Sonia - Fully Assessed Reason for Visit: Benefits Investigation [6712] Prescriptions as of 09/15/2023 - ADULT LOW [...] Status:Closed by YORDAN DUGAN on 09/15/23 Normal [facility] CBC W Auto Differential pane l (Bld)on 09-04-2023 Anisocytosis Ql (Bld) Present Normal [facility] Comment on above: Order Comment: Speci men Type: BLOOD SPECIMENOrdering Facility: [facility] Address: [address] [place] [address] Performed By: #### 5 7021-8 ####[facility] LABCLIA [id number] [place] [address] LABCLIA [id number] [place] [address] [place]#### 74117-9 ####[facility] LABCLIA [id number] [place] [address] Basophils (Bld) [#/Vol] 0.00 10*3/uL Normal <0.11 [facility] Comment on above: Order Comment: Speci men Type: BLOOD SPECIMENOrdering Facility: [facility] Address: [address] [address] Performed By: #### 5 7021-8 ####[facility] LABCLIA [id number] [place], [place] [address]JMTQKWTKTFIRELANDS [facility] LABCLIA [id number] [place] [address] [place]#### 12488-4 ####[facility] LABCLIA [id number] [place] [address] Basophils/100 WBC (Bld) 0.0 % Normal [facility] Comment on above: Order Comment: Speci men Type: BLOOD SPECIMENOrdering Facility: [facility] Address: [address] [place], [place] [address] Performed By: #### 5 7021-8 ####[facility] LABCLIA [id number] [place] [address] LABCLIA [id number] [place] [address] [place]#### 94883-7 ####[facility] LABCLIA [id number] [place] [address] Differential cell count method Nom (Bld) Manual Normal [facility] Comment on above: Order Comment: Speci men Type: BLOOD SPECIMENOrdering Facility: [facility] Address: [address] [place], [place] [address] Performed By: #### 5 7021-8 ####[facility] LABCLIA [id number] [place] [address] LABCLIA [id number] [place] [address] [place]#### 96074-9 ####[facility] LABCLIA [id number] [place] [address] Eosinophils (Bld) [#/Vol] 0.26 10*3/uL Normal <0.46 [facility] Comment on above: Order Comment: Speci men Type: BLOOD SPECIMENOrdering Facility: [facility] Address: [address] [place] [address] Performed By: #### 5 7021-8 ####[facility] LABCLIA [id number] [place] [address] LABCLIA [id number] [place] [address] [place]#### 33664-3 ####[facility] LABCLIA [id number] [place] [address] Eosinophils/100 WBC (Bld) 2.9 % Normal [facility] Comment on above: Order Comment: Speci men Type: BLOOD SPECIMENOrdering Facility: [facility] Address: [address] [place] [address] Performed By: #### 5 7021-8 ####[facility] LABCLIA [id number] [place] [address] LABCLIA [id number] [place] [address] [place]#### 43853-8 ####[facility] LABCLIA [id number] [place] [address] Erythrocyte distribution width (RBC) [Ratio] 20.9 % High 11.5-15.0 [facility] Comment on above: Order Comment: Speci men Type: BLOOD SPECIMENOrdering Facility: [facility] Address: [address] [place] [address] Performed By: #### 5 7021-8 ####[facility] LABCLIA [id number] [place] [address] LABCLIA [id number] [place] [address] [place]#### 13788-0 ####[facility] LABCLIA [id number] [place] [address] Hematocrit (Bld) [Volume fraction] 33.9 % Low 39.0-51.0 [facility] Comment on above: Order Comment: Speci men Type: BLOOD SPECIMENOrdering Facility: [facility] Address: [address] [place] [address] Performed By: #### 5 7021-8 ####[facility] LABCLIA [id number] [place] [address] LABCLIA [id number] [address] [place]#### [address]-2 ####[facility] LABCLIA [id number] [place] [address] Hemoglobin (Bld) [Mass/Vol] 9.0 g/dL Low 13.0-17.0 [facility] Comment on above: Order Comment: Speci men Type: BLOOD SPECIMENOrdering Facility: [facility] Address: [address] [place] [address] Performed By: #### 5 7021-8 ####[facility] LABCLIA [id number] [place] [address] LABCLIA [id number] [address] [place]#### 33525-1 ####[facility] LABCLIA [id number] [place] [address] Lymphocytes (Bld) [#/Vol] 1.55 10*3/uL Normal 1.00-4.00 [facility] Comment on above: Order Comment: Speci men Type: BLOOD SPECIMENOrdering Facility: [facility] Address: [address] [place] [address] Performed By: #### 5 7021-8 ####[facility] LABCLIA [id number] [place], [place] [address] LABCLIA [id number] [place] [address] [place]#### 27274-2 ####[facility] LABCLIA [id number] [place] [address] Lymphocytes/100 WBC (Bld) 17.1 % Normal [facility] Comment on above: Order Comment: Speci men Type: BLOOD SPECIMENOrdering Facility: [facility] Address: [address] [place] [address] Performed By: #### 5 7021-8 ####[facility] LABCLIA [id number] [place] [id number] LABCLIA [id number] [place] [address] [place]#### 05679-2 ####[facility] LABCLIA [id number] [place] [address] MCH (RBC) [Entitic mass] 18.5 pg Low 26.0-34.0 [facility] Comment on above: Order Comment: Speci men Type: BLOOD SPECIMENOrdering Facility: [facility] Address: [address] [place] [address] Performed By: #### 5 7021-8 ####[facility] LABCLIA [id number] [place], [place] [address]POPEJIAPZFIRELANDS REG[facility] LABCLIA [id number] [place] [address] [place]#### 72598-7 ####[facility] LABCLIA [id number] [place] [address] MCHC (RBC) [Mass/Vol] 26.5 g/dL Low 30.5-36.0 [facility] Comment on above: Order Comment: Speci men Type: BLOOD SPECIMENOrdering Facility: [facility] Address: [address] [place] [address] Performed By: #### 5 7021-8 ####[facility] LABCLIA [id number] [place], [place] [address]QIOZMSIMEFIRELANDS REGIONAL [facility] LABCLIA [id number] [place] [address] [place]#### 31898-7 ####[facility] LABCLIA [id number] [place] [address] MCV (RBC) [Entitic vol] 69.8 fL Low 80.0-100.0 [facility] Comment on above: Order Comment: Speci men Type: BLOOD SPECIMENOrdering Facility: [facility] Address: [address] [place] [address] Performed By: #### 5 7021-8 ####[facility] LABCLIA [id number] [place] [address] LABCLIA [id number] [place] [address] [place]#### 54057-6 ####[facility] LABCLIA [id number] [place] [address] Monocytes (Bld) [#/Vol] 0.69 10*3/uL Normal <0.87 [facility] Comment on above: Order Comment: Speci men Type: BLOOD SPECIMENOrdering Facility: [facility] Address: [address] [place] [address] Performed By: #### 5 7021-8 ####[facility] LABCLIA [id number] [place] [address] LABCLIA [id number] [place] [address] [place]#### 33526-5 ####[facility] LABCLIA [id number] [place] [address] Monocytes/100 WBC (Bld) 7.6 % Normal [facility] Comment on above: Order Comment: Speci men Type: BLOOD SPECIMENOrdering Facility: [facility] Address: [address] [place] [address] Performed By: #### 5 7021-8 ####[facility] LABCLIA [id number] [place], [place] [address]JSOQUJASEFIRELANDS REGIONAL [facility] LABCLIA [id number] [place] [address] [place]#### 51613-0 ####[facility] LABCLIA [id number] [place] [address] Neutrophils (Bld) [#/Vol] 6.57 10*3/uL Normal 1.45-7.50 [facility] Comment on above: Order Comment: Speci men Type: BLOOD SPECIMENOrdering Facility: [facility] Address: [address] [place] [address] Performed By: #### 5 7021-8 ####[facility] LABCLIA [id number] [place], [place] [address]QCIPUUCHUFIRELANDS REGIONAL [facility] LABCLIA [id number] [place] [address] [place]#### 01429-5 ####[facility] LABCLIA [id number] [place] [address] Neutrophils/100 WBC (Bld) 72.4 % Normal [facility] Comment on above: Order Comment: Speci men Type: BLOOD SPECIMENOrdering Facility: [facility] Address: [address] [place] [address] Performed By: #### 5 7021-8 ####[facility] LABCLIA [id number] [place] [address] LABCLIA [id number] [place] [address] [place]#### 47485-3 ####[facility] LABCLIA [id number] [place] [address] Nucleated RBC (Bld) [#/Vol] 10*3/uL Normal <0.01 [facility] Comment on above: Order Comment: Speci men Type: BLOOD SPECIMENOrdering Facility: [facility] Address: [address] [place] [address] Performed By: #### 5 7021-8 ####[facility] LABCLIA [id number] [place] [address] LABCLIA [id number] [place] [address] [place]#### 23991-5 ####[facility] LABCLIA [id number] [place] [address] Nucleated RBC/100 WBC (Bld) [Ratio] 0.0 /100 WBC Normal [facility] Comment on above: Order Comment: Speci men Type: BLOOD SPECIMENOrdering Facility: [facility] Address: [address] [place] [address] Performed By: #### 5 7021-8 ####[facility] LABCLIA [id number] [place] [address] LABCLIA [id number] [place] [address] [place]#### 15132-0 ####[facility] LABCLIA [id number] [place] [address] Ovalocytes LM Ql (Bld) Few Normal [facility] Comment on above: Order Comment: Speci men Type: BLOOD SPECIMENOrdering Facility: [facility] Address: [address] [place] [address] Performed By: #### 5 7021-8 ####[facility] LABCLIA [id number] [place], [place] [address]PGOCXBARWFIRELANDS REGIONAL [facility] LABCLIA [id number] [place] [address] [place]#### 49880-4 ####[facility] LABCLIA [id number] [place] [address] Platelet mean volume (Bld) [Entitic vol] 9.3 fL Normal 9.0-12.7 [facility] Comment on above: Order Comment: Speci men Type: BLOOD SPECIMENOrdering Facility: [facility] Address: [address] [place] [address] Performed By: #### 5 7021-8 ####[facility] LABCLIA [id number] [address] LABCLIA [id number] [place] [address] [place]#### 11845-6 ####[facility] LABCLIA [id number] [place] [address] Platelets (Bld) [#/Vol] 425 10*3/uL High 150-400 [facility] Comment on above: Order Comment: Speci men Type: BLOOD SPECIMENOrdering Facility: [facility] Address: [address] [place] [address] Result Comment: No c lot detected.Results checked and verified. Performed By: #### 5 7021-8 ####[facility] LABCLIA [id number] [place] [address] LABCLIA [id number] [place] [address] [place]#### 93224-0 ####[facility] LABCLIA [id number] [place] [address] Platelets Estimate (Bld) [#/Vol] Increased Normal [facility] Comment on above: Order Comment: Speci men Type: BLOOD SPECIMENOrdering Facility: [facility] Address: [address] [place], [place] [address] Performed By: #### 5 7021-8 ####[facility] LABCLIA [id number] [place], [place] [address]CCQDPFTIUFIRELANDS REGIONAL [facility] LABCLIA [id number] [place] [address] [place]#### 67842-8 ####[facility] LABCLIA [id number] [place] [address] RBC (Bld) [#/Vol] 4.86 10*6/uL Normal 4.20-6.00 [facility] Comment on above: Order Comment: Speci men Type: BLOOD SPECIMENOrdering Facility: [facility] Address: [address] [place] [address] Performed By: #### 5 7021-8 ####[facility] LABCLIA [id number] [place] [address] LABCLIA [id number] [place] [address] [place]#### 80334-9 ####[facility] LABCLIA [id number] [place] [address] RBC FRAGMENTS Few Abnormal None Seen [facility] Comment on above: Order Comment: Speci men Type: BLOOD SPECIMENOrdering Facility: [facility] Address: [address] [place] [address] Performed By: #### 5 7021-8 ####[facility] LABCLIA [id number] [place] [address] LABCLIA [id number] [place] [address] [place]#### 83357-3 ####[facility] LABCLIA [id number] [place] [address] RED CELL MORPH Reviewed: see result s of individual morphologies Normal [facility] Comment on above: Order Comment: Speci men Type: BLOOD SPECIMENOrdering Facility: [facility] Address: [address] [place] [address] Performed By: #### 5 7021-8 ####[facility] LABCLIA [id number] [place] [address] LABCLIA [id number] [place] [address] [place]#### 14719-9 ####[facility] LABIA [id number] [place] [address] WBC (Bld) [#/Vol] 9.07 10*3/uL Normal 3.70-11.00 [facility] Comment on above: Order Comment: Speci men Type: BLOOD SPECIMENOrdering Facility: [facility] Address: [address] [place] [address] Performed By: #### 5 7021-8 ####[facility] LABCLIA [id number] [place] [address] LABCLIA [id number] [place] [address] [place]#### 30834-6 ####[facility] LABIA [id number] [place] [address] CNOVSPon 09-04-2023 OVS Visit (SP) Office ([facility]) ESTEPHANIAYUNIOR ([id number]) 1945 Date Time Provider Department 09/04/23 11:15 AM [facility] During your visit today, we recorded the following information about you: Temperature Pulse Respiration Blood pressure 97.5 degrees 61/minute 18/minute 159/40 Weight 102.3 kg Austin Springer MD 09/04/2023 7:29 PM Signed NAME: Yunior Best CLINIC NO.: [id number] DATE OF SERVICE: September 04, 2023 (Meghann) Referring Provider: Dr. Adonay Zhang ([facility]) Consultation requested by Dr. Zhang for [...] colonoscopy. 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 - REVIEW [...] on 09/04/2023) (more content not included)... Normal [facility] Samira 09-04-2023 AMILCAR Telephone ([facility]) YUNIOR BEST ([id number]) 1945 M Date Time Provider Department 09/04/23 [...] Status:Closed by RICARDO LORENZANA on 09/05/23 Normal [facility] Comprehensive metabolic 2000 panelon 09-04-2023 Albumin [Mass/Vol] 4.7 g/dL 3.9 - 4.9 g/dL [facility] ALP [Catalytic activity/Vol] 75 U/L 38 - 113 U/L [facility] ALT [Catalytic activity/Vol] 13 U/L 10 - 54 U/L [facility] Anion gap [Moles/Vol] 12 mmol/L 9 - 18 mmol/L [facility] AST [Catalytic activity/Vol] 17 U/L 14 - 40 U/L [facility] Bilirubin [Mass/Vol] 0.2 mg/dL 0.2 - 1 .3 mg/dL [facility] Calcium [Mass/Vol] 9.9 mg/dL 8.5 - 10. 2 mg/dL [facility] Chloride [Moles/Vol] 101 mmol/L 97 - 10 5 mmol/L [facility] CO2 [Moles/Vol] 27 mmol/L 22 - 30 mmol/L [facility] Creatinine [Mass/Vol] 0.99 mg/dL 0.73 - 1.22 mg/dL [facility] Estimated Glomerular Filtration Rate 78 mL/min/1.73m >=60 mL/min/1.73m [facility] Glucose [Mass/Vol] 192 mg/dL High 74 - 99 mg/dL [facility] Potassium [Moles/Vol] 3.9 mmol/L 3.7 - 5.1 mmol/L [facility] Protein [Mass/Vol] 7.3 g/dL 6.3 - 8.0 g/dL [facility] Sodium [Moles/Vol] 140 mmol/L 136 - 144 mmol/L [facility] Urea nitrogen [Mass/Vol] 20 mg/dL 9 - 24 mg/dL [facility] Albumin [Mass/Vol] 4.7 g/dL Normal 3.9-4.9 [facility] Comment on above: Order Comment: Speci men Type: BLOOD SPECIMEN [facility] Address: [address] [place] [address] Performed By: #### 2 4323-8 #### [facility] CLIA [id number] [address] [place] [address] ALP [Catalytic activity/Vol] 75 U/L Normal 38-113 [facility] Comment on above: Order Comment: Speci men Type: BLOOD SPECIMEN [facility] Address: [address] [place] [address] Performed By: #### 2 4323-8 #### [facility] CLIA [id number] [address] [place] [address] ALT [Catalytic activity/Vol] 13 U/L Normal 10-54 [facility] Comment on above: Order Comment: Speci men Type: BLOOD SPECIMEN [facility] Address: [address] [place] [address] Performed By: #### 2 4323-8 #### [facility] CLIA [id number] [address] [place] [address] Anion gap [Moles/Vol] 12 mmol/L Normal 9-18 [facility] Comment on above: Order Comment: Speci men Type: BLOOD SPECIMEN [facility] Address: [address] [place], [place] [address] Performed By: #### 2 4323-8 #### [facility] CLIA [id number] [address] [place] [address] AST [Catalytic activity/Vol] 17 U/L Normal 14-40 [facility] Comment on above: Order Comment: Speci men Type: BLOOD SPECIMEN [facility] Address: [address] [place], [place] [address] Performed By: #### 2 4323-8 #### [facility] CLIA [id number] [address] [place] [address] Bilirubin [Mass/Vol] 0.2 mg/dL Normal 0.2-1.3 [facility] Comment on above: Order Comment: Speci men Type: BLOOD SPECIMEN [facility] Address: [address] [place] [address] Performed By: #### 2 4323-8 #### [facility] CLIA [id number] [address] [place] [address] Calcium [Mass/Vol] 9.9 mg/dL Normal 8.5-10.2 [facility] Comment on above: Order Comment: Speci men Type: BLOOD SPECIMEN [facility] Address: [address] [place] [address] Performed By: #### 2 4323-8 #### [facility] CLIA [id number] [address] [place] [address] Chloride [Moles/Vol] 101 mmol/L Normal 97-105 [facility] Comment on above: Order Comment: Speci men Type: BLOOD SPECIMEN [facility] Address: [address] [place] [address] Performed By: #### 2 4323-8 #### [facility] CLIA [id number] [address] [place] [address] CO2 [Moles/Vol] 27 mmol/L Normal 22-30 [facility] Comment on above: Order Comment: Speci men Type: BLOOD SPECIMEN [facility] Address: [address] [place] [address] Performed By: #### 2 4323-8 #### [facility] CLIA [id number] [address] [place] [address] Creatinine [Mass/Vol] 0.99 mg/dL Normal 0.73-1.22 [facility] Comment on above: Order Comment: Speci men Type: BLOOD SPECIMEN [facility] Address: [address] [place] [address] Performed By: #### 2 4323-8 #### [facility] CLIA [id number] [address] [place] [address] Creatinine and Glomerular filtration rate.predicted panel (S/P/Bld) 78 mL/min/1.73m??? Normal >=60 [facility] Comment on above: Order Comment: Jono graves Type: BLOOD SPECIMEN [facility] Address: [address] [place] [address] Result Comment: Odette mated Glomerular Filtration Rate [...] GFR. Performed By: #### 2 4323-8 #### [facility] CLIA [id number] [address] [place] [address] Glucose [Mass/Vol] 192 mg/dL High 74-99 [facility] Comment on above: Order Comment: Jono graves Type: BLOOD SPECIMEN [facility] Address: [address] [place] [address] Result Comment: The [place] [employer] (ADA) provides guidance for cutoff [...] Standards of Medical Care in Diabetes 2016, [place] [employer]. Diabetes Care. 2016.39(Suppl 1). Performed By: #### 2 4323-8 #### [facility] CLIA [id number] [address] [place] [address] Potassium [Moles/Vol] 3.9 mmol/L Normal 3.7-5.1 [facility] Comment on above: Order Comment: Speci men Type: BLOOD SPECIMEN [facility] Address: [address] [place] [address] Performed By: #### 2 4323-8 #### [facility] CLIA [id number] [address] [place] [address] Protein [Mass/Vol] 7.3 g/dL Normal 6.3-8.0 [facility] Comment on above: Order Comment: Speci men Type: BLOOD SPECIMEN [facility] Address: [address] [place] [address] Performed By: #### 2 4323-8 #### [facility] CLIA [id number] [address] [place] [address] Sodium [Moles/Vol] 140 mmol/L Normal 136-144 [facility] Comment on above: Order Comment: Speci men Type: BLOOD SPECIMEN [facility] Address: [address] [place] [address] Performed By: #### 2 4323-8 #### [facility] CLIA [id number] [address] [place] [address] Urea nitrogen [Mass/Vol] 20 mg/dL Normal 9-24 [facility] Comment on above: Order Comment: Speci men Type: BLOOD SPECIMEN [facility] Address: [address] [place] [address] Performed By: #### 2 4323-8 #### [facility] CLIA [id number] [address] [place] [address] Ferritin SerPl-mCncon 2023 Ferritin [Mass/Vol] 8.6 ng/mL Low 30.3-565.7 [facility] Comment on above: Order Comment: Speci men Type: BLOOD SPECIMENOrdering Facility: [facility] Address: [address] [place] [address] Performed By: #### 2 276-4, 4542-7, 73627-4 ####[facility] LABCLIA [id number] [place] [address] [place] Folate SerPl-mCncon 09-04-19 24 Folate [Mass/Vol] ng/mL Normal >4.7 [facility] Comment on above: Order Comment: Speci men Type: BLOOD SPECIMENOrdering Facility: [facility] Address: [address] [place] [address] Result Comment: A re sult of > 20 ng/mL is not necessarily indicative of a pathologic or treatable condition: it reflects a limitation of the test methodology. Assay reference range: 4.8 to 24.2 ng/mL. Suitable for detection of folate deficiency. Reference: Folate III (Folate III) [package insert V 1.0 [place]]. Rika GramVaani, [place], [place]: May 2015. Performed By: #### 2 284-8, 2132-9 ####[facility] LABCLIA [id number] [place] [address] [place] Haptoglob SerPl-ncon 09-03 Haptoglobin [Mass/Vol] 225 mg/dL Normal 31-238 [facility] Comment on above: Order Comment: Speci men Type: BLOOD SPECIMENOrdering Facility: [facility] Address: [address] [place] [address] Performed By: #### 2 276-4, 4542-7, 70836-5 ####[facility] LABCLIA [id number] [place] [address] [place] Iron and Iron binding capaci ty panelon 09-04-2023 Iron [Mass/Vol] 13 ug/dL Low 41-186 [facility] Comment on above: Order Comment: Speci men Type: BLOOD SPECIMENOrdering Facility: [facility] Address: [address] [place] [address] Performed By: #### 2 276-4, 4542-7, 16631-9 ####[facility] LABCLIA [id number] [place] [address] [place] Iron binding capacity [Mass/Vol] 457 ug/dL High 232-386 [facility] Comment on above: Order Comment: Speci men Type: BLOOD SPECIMENOrdering Facility: [facility] Address: [address] [place] [address] Performed By: #### 2 276-4, 4542-7, 28535-2 ####[facility] LABCLIA [id number] [place] [address] [place] Iron/TIBC [Molar ratio] 2.8 % Low 15.0-57.0 [facility] Comment on above: Order Comment: Speci men Type: BLOOD SPECIMENOrdering Facility: [facility] Address: [address] [place] [address] Performed By: #### 2 276-4, 4542-7, 84155-8 ####[facility] LABCLIA [id number] [place] [address] [place] RETIC COUNTon 09-04-2023 Reticulocytes (Bld) [#/Vol] 0.59935 10*3/uL 0.018 - 0.100 M/uL [facility] Retics #on 09-04-2023 Reticulocytes (Bld) [#/Vol] 0.07409 10*3/uL Normal 0.018-0.100 [facility] Comment on above: Order Comment: Speci men Type: BLOOD SPECIMENOrdering Facility: [facility] Address: [address] [place] [address] Performed By: #### 5 7021-8 ####[facility] LABCLIA [id number] [place], [place] [address]FRAVNWNMFFIRELANDS REGIONAL [facility] LABCLIA [id number] [place] [address] [place]#### 45196-3 ####[facility] LABCLIA [id number] [place] [address] Reticulocytes (Bld) [#/Vol]o n 09-04-2023 Reticulocytes/100 RBC (Bld) 1.3 % 0.4 - 2.0 % [facility] Reticulocytes/100 RBC (Bld) 1.3 % Normal 0.4-2.0 [facility] Comment on above: Order Comment: Speci men Type: BLOOD SPECIMENOrdering Facility: [facility] Address: [address] [place] [address] Performed By: #### 5 7021-8 ####[facility] LABCLIA [id number] [place] [address] LABCLIA [id number] [place] [address] [place]#### 09495-7 ####[facility] LABCLIA [id number] [place] [address] Vit B12 [facility] 024 Cobalamin (Vitamin B12) [Mass/Vol] 618 pg/mL Normal 232-1245 [facility] Comment on above: Order Comment: Speci men Type: BLOOD SPECIMENOrdering Facility: [facility] Address: [address] [place] [address] Performed By: #### 2 284-8, 2132-9 ####[facility] LABCLIA [id number] [place] [address] [place] Consent for Procedure/Surger yon 08-30-2023 Consent for Procedure/Surgery [id number]# 1.00TIFF Normal [facility] Facesheeton 08-30-2023 Facesheet [id number]# 1.00TIFF Normal [facility] Lab Reportson 08-16-2023 Lab Reports [id number]#1 .00TIFF Normal [facility] Physician Referralon 024 Physician Referral [id number]#1 .00TIFF Normal [facility] CBC AUTO DIFFon 10-14-2022 BASO # 0.1 103/ul Normal 0.0-0.1 [facility] Comment on above: Performed By: #### T SH, LIVER, LIPID, BMP, T7 #### [facility] [address] [place] [address] Dr. Roberto Cabral Basophils/100 WBC (Bld) 0.7 % Normal 0.2-2.0 [facility] Comment on above: Performed By: #### T SH, LIVER, LIPID, BMP, T7 #### [facility] [address] [place] [address] Dr. Roberto Cabral EO # 0.5 103/ul Normal 0.0-0.7 [facility] Comment on above: Performed By: #### T SH, LIVER, LIPID, BMP, T7 #### [facility] [address] [place] [address] Dr. Roberto Cabral Eosinophils/100 WBC (Bld) 5.3 % Normal 0.9-7.0 [facility] Comment on above: Performed By: #### T SH, LIVER, LIPID, BMP, T7 #### [facility] [address] [place] [address] Dr. Roberto Cabral Erythrocyte distribution width (RBC) [Ratio] 15.8 % Critically high 11.0-15.0 [facility] Comment on above: Performed By: #### T SH, LIVER, LIPID, BMP, T7 #### [facility] [address] [place] [address] Dr. Roberto Cabral Hematocrit (Bld) [Volume fraction] 34.4 % Critically low 42.0-54.0 [facility] Comment on above: Performed By: #### T SH, LIVER, LIPID, BMP, T7 #### [facility] [address] [place] [address] Dr. Roberto Cabral Hemoglobin (Bld) [Mass/Vol] 10.2 g/dL Critically low 14.0-18.0 [facility] Comment on above: Performed By: #### T SH, LIVER, LIPID, BMP, T7 #### [facility] [address] [address] [address] Roberto Cabral IG # 0.03 10e3/ul Normal 0.00-0.03 [facility] Comment on above: Performed By: #### T SH, LIVER, LIPID, BMP, T7 #### [facility] [address] [place] [address] Dr. Roberto Cabral IG % 0.3 % Normal 0.0-0.5 [facility] Comment on above: Performed By: #### T SH, LIVER, LIPID, BMP, T7 #### [facility] [address] [place] [address] Dr. Roberto Cabral LYMPH # 1.9 103/ul Normal 1.2-3.8 [facility] Comment on above: Performed By: #### T SH, LIVER, LIPID, BMP, T7 #### [facility] [address] [place] [address] Dr. Roberto Cabral Lymphocytes/100 WBC (Bld) 21.0 % Normal 20.5-60.0 [facility] Comment on above: Performed By: #### T SH, LIVER, LIPID, BMP, T7 #### [facility] [address] [address] [address] Roberto Cabral MANUAL DIFF REQ NO Normal [facility] Comment on above: Performed By: #### T SH, LIVER, LIPID, BMP, T7 #### [facility] [address] [place] [address] Dr. Roberto Cabral MCH (RBC) [Entitic mass] 22.7 pg Critically low 25.9-34.0 [facility] Comment on above: Performed By: #### T SH, LIVER, LIPID, BMP, T7 #### [facility] [address] [place] [address] Dr. Roberto Cabral MCHC (RBC) [Mass/Vol] 29.7 g/dL Critically low 29.9-35.2 [facility] Comment on above: Performed By: #### T SH, LIVER, LIPID, BMP, T7 #### [facility] [address] [place] [address] Dr. Roberto Cabral MCV (RBC) [Entitic vol] 76.6 fL Critically low 80.0-94.0 [facility] Comment on above: Performed By: #### T SH, LIVER, LIPID, BMP, T7 #### [facility] [address] [address] [address] Roberto Cabral MONO # 0.9 103/ul Critically high 0.3-0.8 [facility] Comment on above: Performed By: #### T SH, LIVER, LIPID, BMP, T7 #### [facility] [address] [address] [address] Roberto Cabral Monocytes/100 WBC (Bld) 10.0 % Normal 1.7-12.0 [facility] Comment on above: Performed By: #### T SH, LIVER, LIPID, BMP, T7 #### [facility] [address] [place] [address] Dr. Roberto Cabral NEUT # 5.7 103/ul Normal 1.4-6.5 [facility] Comment on above: Performed By: #### T SH, LIVER, LIPID, BMP, T7 #### [facility] [address] [place] [address] Dr. Roberto Cabral Neutrophils/100 WBC (Bld) 62.7 % Normal 43.0-75.0 [facility] Comment on above: Performed By: #### T SH, LIVER, LIPID, BMP, T7 #### [facility] [address] [place] [address] Dr. Roberto Cabral Platelet mean volume (Bld) [Entitic vol] 9.8 fL Normal 9.5-13.5 [facility] Comment on above: Performed By: #### T SH, LIVER, LIPID, BMP, T7 #### [facility] [address] [address] [address] Roberto Cabral PLT 290 103/ul Normal 150-450 [facility] Comment on above: Performed By: #### T SH, LIVER, LIPID, BMP, T7 #### [facility] [address] [place] [address] Dr. Roberto Cabral RBC 4.49 106/ul Critically low 4.70-6.10 [facility] Comment on above: Performed By: #### T SH, LIVER, LIPID, BMP, T7 #### [facility] [address] [address] [address] Roberto Cabral WBC 9.1 103/ul Normal 4.0-11.0 [facility] Comment on above: Performed By: #### T SH, LIVER, LIPID, BMP, T7 #### [facility] [address] [address] [address] Roberto Cabral FREE THYROXINE INDEX T7on FTI 2.73 Normal 1.30-4.50 [facility] Comment on above: Performed By: #### T SH, LIVER, LIPID, BMP, T7 #### [facility] [address] [address] [address] Roberto Cabral T3U 35.0 % Normal 33.0-40.0 [facility] Comment on above: Performed By: #### T SH, LIVER, LIPID, BMP, T7 #### [facility] [address] [address] [address] Roberto Cabral T4 [Mass/Vol] 7.80 ug/dL Normal 4.50-12.10 [facility] Comment on above: Performed By: #### T SH, LIVER, LIPID, BMP, T7 #### [facility] [address] [place] [address] Dr. Roberto Cabral GLYCOHEMOGLOBIN A1Con 2022 ADA RECOMMENDATION SEE BELOW Normal [facility] Comment on above: Result Comment: ADA RECOMMENDED LIMIT 4.0 - 6.0 ADA THERAPEUTIC TARGET < 7.0 ACTION SUGGESTED > 7.0 Performed By: #### A 1C #### [facility] [address] [place] [address] Dr. Roberto Cabral Glucose [Mass/Vol] 126 mg/dL Normal [facility] Comment on above: Performed By: #### A 1C #### [facility] [address] [place] [address] Dr. Roberto Cabral HbA1c (Bld) [Mass fraction] 6.0 % Normal 4.5-6.2 [facility] Comment on above: Performed By: #### A 1C #### [facility] [address] [address] [address] Roberto Cabral LIPID PROFILEon 10-14-2022 CHOL-HDL RATIO NORM SEE BELOW Normal [facility] Comment on above: Result Comment: 3.3 - 4.4 LOW RISK 4.4 - 7.1 AVERAGE RISK 7.1 - 11.0 MODERATE RISK >11.0 HIGH RISK Performed By: #### T SH, LIVER, LIPID, BMP, T7 #### [facility] [address] [address] [address] Roberto Cabral Cholesterol [Mass/Vol] 129 mg/dL Normal <=200 [facility] Comment on above: Performed By: #### T SH, LIVER, LIPID, BMP, T7 #### [facility] [address] [address] [address] Roberto Cabral Cholesterol in HDL [Mass/Vol] 45 mg/dL Normal 40-60 [facility] Comment on above: Performed By: #### T SH, LIVER, LIPID, BMP, T7 #### [facility] [address] [address] [address] Roberto Cabral Cholesterol in LDL [Mass/Vol] 62.4 mg/dL Normal [facility] Comment on above: Performed By: #### T SH, LIVER, LIPID, BMP, T7 #### [facility] [address] [address] [address] Roberto Cabral Cholesterol.total/Ch olesterol in HDL [Mass ratio] 2.9 {ratio} Normal [facility] Comment on above: Performed By: #### T SH, LIVER, LIPID, BMP, T7 #### [facility] [address] [address] [address] Roberto Cabral HDL NORMAL > or = 60 mg/dl - LO W CARDIOVASCULAR RISK <40 mg/dl - HIGH CARDIOVASCULAR RISK Normal [facility] Comment on above: Performed By: #### T SH, LIVER, LIPID, BMP, T7 #### [facility] [address] [address] [address] Roberto Cabral LDL CALC NORMAL SEE BELOW Normal [facility] Comment on above: Result Comment: <100 mg/dl OPTIMAL 100 - 129 mg/dl NEAR OR ABOVE OPTIMAL 130 - 159 mg/dl BORDERLINE HIGH 160 - 189 mg/dl HIGH >190 mg/dl VERY HIGH Performed By: #### T SH, LIVER, LIPID, BMP, T7 #### [facility] [address] [address] [address] Roberto Cabral Triglyceride [Mass/Vol] 108 mg/dL Normal <=150 [facility] Comment on above: Performed By: #### T SH, LIVER, LIPID, BMP, T7 #### [facility] [address] [address] [address] Roberto Cabral VLDL CALC 21.6 mg/dL Normal [facility] Comment on above: Performed By: #### T SH, LIVER, LIPID, BMP, T7 #### [facility] [address] [address] [address] Roberto Cabral LIVER PROFILEon 10-14-2022 Albumin [Mass/Vol] 3.6 g/dL Normal 3.4-5.0 [facility] Comment on above: Performed By: #### T SH, LIVER, LIPID, BMP, T7 #### [facility] [address] [address] [address] Roberto Cabral Albumin/Globulin [Mass ratio] 1.0 {ratio} Normal [facility] Comment on above: Performed By: #### T SH, LIVER, LIPID, BMP, T7 #### [facility] [address] [address] [address] Roberto Cabral ALP [Catalytic activity/Vol] 80 U/L Normal 46-116 [facility] Comment on above: Performed By: #### T SH, LIVER, LIPID, BMP, T7 #### [facility] [address] [address] [address] Roberto Cabral ALT [Catalytic activity/Vol] 21 U/L Normal 16-63 [facility] Comment on above: Performed By: #### T SH, LIVER, LIPID, BMP, T7 #### [facility] [address] [address] [address] Roberto Cabral AST [Catalytic activity/Vol] 14 U/L Critically low 15-37 [facility] Comment on above: Performed By: #### T SH, LIVER, LIPID, BMP, T7 #### [facility] [address] [address] [address] Roberto Cabral BILI, CONJUGATED 0.1 mg/dL Normal 0.0-0.2 [facility] Comment on above: Performed By: #### T SH, LIVER, LIPID, BMP, T7 #### [facility] [address] [address] [address] Roberto Cabral Bilirubin [Mass/Vol] 0.2 mg/dL Normal 0.2-1.0 [facility] Comment on above: Performed By: #### T SH, LIVER, LIPID, BMP, T7 #### [facility] [address] [address] [address] Roberto Cabral Globulin (S) [Mass/Vol] 3.6 g/dL Normal [facility] Comment on above: Performed By: #### T SH, LIVER, LIPID, BMP, T7 #### [facility] [address] [place] [address] Dr. Roberto Cabral Protein [Mass/Vol] 7.2 g/dL Normal 6.4-8.[address] [facility] Comment on above: Performed By: #### T SH, LIVER, LIPID, BMP, T7 #### [facility] [address] [place] [address] Dr. Roberto Cabral PROF CHEM 8 (BAS METB)on Anion gap [Moles/Vol] 13.9 mmol/L Normal [facility] Comment on above: Performed By: #### T SH, LIVER, LIPID, BMP, T7 #### [facility] [address] [place] [address] Dr. Roberto Cabral Calcium [Mass/Vol] 9.2 mg/dL Normal 8.5-10.[address] [facility] Comment on above: Performed By: #### T SH, LIVER, LIPID, BMP, T7 #### [facility] [address] [place] [address] Dr. Roberto Cabral Chloride [Moles/Vol] 110 mmol/L Critically high 98-107 [facility] Comment on above: Performed By: #### T SH, LIVER, LIPID, BMP, T7 #### [facility] [address] [address] [address] Roberto Cabral CO2 [Moles/Vol] 26.2 mmol/L Normal 21.0-32.0 [facility] Comment on above: Performed By: #### T SH, LIVER, LIPID, BMP, T7 #### [facility] [address] [place] [address] Dr. Roberto Cabral Creatinine [Mass/Vol] 1.02 mg/dL Normal 0.70-1.30 [facility] Comment on above: Performed By: #### T SH, LIVER, LIPID, BMP, T7 #### [facility] [address] [place] [address] Dr. Roberto Cabral EGFR-AF TAIWANESE >60 Normal >=60 [facility] Comment on above: Performed By: #### T SH, LIVER, LIPID, BMP, T7 #### [facility] [address] [place] [address] Dr. Roberto Cabral EGFR-NON AF TAIWANESE >60 Normal >=60 [facility] Comment on above: Performed By: #### T SH, LIVER, LIPID, BMP, T7 #### [facility] [address] [place] [address] Dr. Roberto Cabral Glucose [Mass/Vol] 120 mg/dL Critically high 74-106 [facility] Comment on above: Performed By: #### T SH, LIVER, LIPID, BMP, T7 #### [facility] [address] [place] [address] Dr. Roberto Cabral Potassium [Moles/Vol] 4.1 mmol/L Normal 3.5-5.1 [facility] Comment on above: Performed By: #### T SH, LIVER, LIPID, BMP, T7 #### [facility] [address] [place] [address] Dr. Roberto Cabral Sodium [Moles/Vol] 146 mmol/L Critically high 136-145 [facility] Comment on above: Performed By: #### T SH, LIVER, LIPID, BMP, T7 #### [facility] [address] [place] [address] Dr. Roberto Cabral Urea nitrogen [Mass/Vol] 26.0 mg/dL Critically high 7.0-18.0 [facility] Comment on above: Performed By: #### T SH, LIVER, LIPID, BMP, T7 #### [facility] [address] [place] [address] Dr. Roberto Cabral Urea nitrogen/Creatinine [Mass ratio] 25.5 mg/mg Normal [facility] Comment on above: Performed By: #### T SH, LIVER, LIPID, BMP, T7 #### [facility] [address] [place] [address] Dr. Roberto Cabral TSHon 10-14-2022 TSH 1.674 uIU/mL Normal 0.358-3.740 [facility] Comment on above: Performed By: #### T SH, LIVER, LIPID, BMP, T7 #### [facility] [address] [place] [address] Dr. Roberto Cabral [facility] SARS-CoV-2 (COVID-19) RNA JOSÉ+probe Ql (Unsp spec) Detected Critically abnormal NOT DETECTED [facility] Comment on above: Result Comment: This test is not yet approved or cleared by the [place] FDA. When there are no FDA-approved or cleared tests available, and other criteria are met, FDA can make tests available under an emergency access mechanism called an Emergency Use Authorization (EUA). The EUA for this test is supported by the Therapeutic Case Manager of Health and Human Service's (HHS's) declaration [...] T SH, LIVER, LIPID, BMP, T7 #### [facility] [address] [place] [address] Dr. Roberto Cabral PROF 14(COMP METB)on 022 Albumin [Mass/Vol] 3.3 g/dL Critically low 3.4-5.0 [facility] Comment on above: Performed By: #### T SH, LIVER, LIPID, BMP, T7 #### [facility] [address] [address] [address] Roberto Cabral Albumin/Globulin [Mass ratio] 1.0 {ratio} Normal [facility] Comment on above: Performed By: #### T SH, LIVER, LIPID, BMP, T7 #### [facility] [address] [address] [address] Roberto Cabral ALP [Catalytic activity/Vol] 95 U/L Normal 46-116 [facility] Comment on above: Performed By: #### T SH, LIVER, LIPID, BMP, T7 #### [facility] [address] [place] [address] Dr. Roberto Cabral ALT [Catalytic activity/Vol] 22 U/L Normal 16-63 [facility] Comment on above: Performed By: #### T SH, LIVER, LIPID, BMP, T7 #### [facility] [address] [address] [address] Roberto Cabral Anion gap [Moles/Vol] 14.0 mmol/L Normal [facility] Comment on above: Performed By: #### T SH, LIVER, LIPID, BMP, T7 #### [facility] [address] [address] [address] Roberto Cabral AST [Catalytic activity/Vol] 12 U/L Critically low 15-37 [facility] Comment on above: Performed By: #### T SH, LIVER, LIPID, BMP, T7 #### [facility] [address] [address] [address] Roberto Cabral Bilirubin [Mass/Vol] 0.2 mg/dL Normal 0.2-1.0 [facility] Comment on above: Performed By: #### T SH, LIVER, LIPID, BMP, T7 #### [facility] [address] [address] [address] Roberto Cabral Calcium [Mass/Vol] 8.6 mg/dL Normal 8.5-10.1 [facility] Comment on above: Performed By: #### T SH, LIVER, LIPID, BMP, T7 #### [facility] [address] [address] [address] Roberto Cabral Chloride [Moles/Vol] 110 mmol/L Critically high 98-107 [facility] Comment on above: Performed By: #### T SH, LIVER, LIPID, BMP, T7 #### [facility] [address] [place] [address] Dr. Roberto Cabral CO2 [Moles/Vol] 22.6 mmol/L Normal 21.0-32.0 [facility] Comment on above: Performed By: #### T SH, LIVER, LIPID, BMP, T7 #### [facility] [address] [place] [address] Dr. Roberto Cabral Creatinine [Mass/Vol] 1.05 mg/dL Normal 0.70-1.30 [facility] Comment on above: Performed By: #### T SH, LIVER, LIPID, BMP, T7 #### [facility] [address] [place] [address] Dr. Roberto Cabral EGFR-AF TAIWANESE >60 Normal >=60 [facility] Comment on above: Performed By: #### T SH, LIVER, LIPID, BMP, T7 #### [facility] [address] [place] [address] Dr. Roberto Cabral EGFR-NON AF TAIWANESE >60 Normal >=60 [facility] Comment on above: Performed By: #### T SH, LIVER, LIPID, BMP, T7 #### [facility] [address] [place] [address] Dr. Roberto Cabral Globulin (S) [Mass/Vol] 3.2 g/dL Normal [facility] Comment on above: Performed By: #### T SH, LIVER, LIPID, BMP, T7 #### [facility] [address] [place] [address] Dr. Roberto Cabral Glucose [Mass/Vol] 172 mg/dL Critically high 74-106 [facility] Comment on above: Performed By: #### T SH, LIVER, LIPID, BMP, T7 #### [facility] [address] [place] [address] Dr. Roberto Cabral Potassium [Moles/Vol] 4.6 mmol/L Normal 3.5-5.1 [facility] Comment on above: Performed By: #### T SH, LIVER, LIPID, BMP, T7 #### [facility] [address] [place] [address] Dr. Roberto Cabral Protein [Mass/Vol] 6.5 g/dL Normal 6.4-8.[address] [facility] Comment on above: Performed By: #### T SH, LIVER, LIPID, BMP, T7 #### [facility] [address] [place] [address] Dr. Roberto Cabral Sodium [Moles/Vol] 142 mmol/L Normal 136-[address] [facility] Comment on above: Performed By: #### T SH, LIVER, LIPID, BMP, T7 #### [facility] [address] [place] [address] Dr. Roberto Cabral Urea nitrogen [Mass/Vol] 14.0 mg/dL Normal 7.0-18.0 [facility] Comment on above: Performed By: #### T SH, LIVER, LIPID, BMP, T7 #### [facility] [address] [place] [address] Dr. Roberto Cabral Urea nitrogen/Creatinine [Mass ratio] 13.3 mg/mg Normal [facility] Comment on above: Performed By: #### T SH, LIVER, LIPID, BMP, T7 #### [facility] [address] [place] [address] Dr. Roberto Cabral CBC AUTO DIFFon 12-11-2021 BASO # 0.1 103/ul Normal 0.0-0.1 [facility] Comment on above: Performed By: #### T SH, LIVER, LIPID, BMP, T7 #### [facility] [address] [place] [address] Dr. Roberto Cabral Basophils/100 WBC (Bld) 0.3 % Normal 0.2-2.0 [facility] Comment on above: Performed By: #### T SH, LIVER, LIPID, BMP, T7 #### [facility] [address] [place] [address] Dr. Roberto Cabral EO # 0.7 103/ul Normal 0.0-0.7 [facility] Comment on above: Performed By: #### T SH, LIVER, LIPID, BMP, T7 #### [facility] [address] [place] [address] Dr. Roberto Cabral Eosinophils/100 WBC (Bld) 4.5 % Normal 0.9-7.0 [facility] Comment on above: Performed By: #### T SH, LIVER, LIPID, BMP, T7 #### [facility] [address] [place] [address] Dr. Roberto Cabral Erythrocyte distribution width (RBC) [Ratio] 15.7 % Critically high 11.0-15.0 [facility] Comment on above: Performed By: #### T SH, LIVER, LIPID, BMP, T7 #### [facility] [address] [place] [address] Dr. Roberto Cabral Hematocrit (Bld) [Volume fraction] 33.3 % Critically low 42.0-54.0 [facility] Comment on above: Performed By: #### T SH, LIVER, LIPID, BMP, T7 #### [facility] [address] [place] [address] Dr. Roberto Cabral Hemoglobin (Bld) [Mass/Vol] 10.3 g/dL Critically low 14.0-18.0 [facility] Comment on above: Performed By: #### T SH, LIVER, LIPID, BMP, T7 #### [facility] [address] [place] [address] Dr. Roberto Cabral IG # 0.08 10e3/ul Critically high 0.00-0.03 [facility] Comment on above: Performed By: #### T SH, LIVER, LIPID, BMP, T7 #### [facility] [address] [place] [address] Dr. Roberto Cabral IG % 0.5 % Normal 0.0-0.5 [facility] Comment on above: Performed By: #### T SH, LIVER, LIPID, BMP, T7 #### [facility] [address] [place] [address] Dr. Roberto Cabral LYMPH # 1.3 103/ul Normal 1.2-3.8 [facility] Comment on above: Performed By: #### T SH, LIVER, LIPID, BMP, T7 #### [facility] [address] [place] [address] Dr. Roberto Cabral Lymphocytes/100 WBC (Bld) 8.4 % Critically low 20.5-60.0 [facility] Comment on above: Performed By: #### T SH, LIVER, LIPID, BMP, T7 #### [facility] [address] [place] [address] Dr. Roberto Cabral MANUAL DIFF REQ NO Normal [facility] Comment on above: Performed By: #### T SH, LIVER, LIPID, BMP, T7 #### [facility] [address] [place] [address] Dr. Roberto Cabral MCH (RBC) [Entitic mass] 27.9 pg Normal 25.9-34.0 [facility] Comment on above: Performed By: #### T SH, LIVER, LIPID, BMP, T7 #### [facility] [address] [place] [address] Dr. Roberto Cabral MCHC (RBC) [Mass/Vol] 30.9 g/dL Normal 29.9-35.2 [facility] Comment on above: Performed By: #### T SH, LIVER, LIPID, BMP, T7 #### [facility] [address] [place] [address] Dr. Roberto Cabral MCV (RBC) [Entitic vol] 90.2 fL Normal 80.0-94.0 [facility] Comment on above: Performed By: #### T SH, LIVER, LIPID, BMP, T7 #### [facility] [address] [place] [address] Dr. Roberto Cabral MONO # 1.4 103/ul Critically high 0.3-0.8 [facility] Comment on above: Performed By: #### T SH, LIVER, LIPID, BMP, T7 #### [facility] [address] [place] [address] Dr. Roberto Cabral Monocytes/100 WBC (Bld) 8.9 % Normal 1.7-12.0 [facility] Comment on above: Performed By: #### T SH, LIVER, LIPID, BMP, T7 #### [facility] [address] [address] [address] Roberto Cabral NEUT # 12.0 103/ul Critically high 1.4-6.5 [facility] Comment on above: Performed By: #### T SH, LIVER, LIPID, BMP, T7 #### [facility] [address] [address] [address] Roberto Cabral Neutrophils/100 WBC (Bld) 77.4 % Critically high 43.0-75.0 [facility] Comment on above: Performed By: #### T SH, LIVER, LIPID, BMP, T7 #### [facility] [address] [address] [address] Roberto Cabral Platelet mean volume (Bld) [Entitic vol] 10.3 fL Normal 9.5-13.5 [facility] Comment on above: Performed By: #### T SH, LIVER, LIPID, BMP, T7 #### [facility] [address] [address] [address] Roberto Cabral PLT 286 103/ul Normal 150-450 [facility] Comment on above: Performed By: #### T SH, LIVER, LIPID, BMP, T7 #### [facility] [address] [address] [address] Roberto Cabral RBC 3.69 106/ul Critically low 4.70-6.10 [facility] Comment on above: Performed By: #### T SH, LIVER, LIPID, BMP, T7 #### [facility] [address] [address] [address] Roberto Cabral WBC 15.4 103/ul Critically high 4.0-11.0 [facility] Comment on above: Performed By: #### T SH, LIVER, LIPID, BMP, T7 #### [facility] [address] [address] [address] Roberto Cabral POINT OF CARE GLUCOSEon 06-1 1-2022 Glucose [Mass/Vol] 122 mg/dL Critically high 74-106 [facility] Comment on above: Performed By: #### T SH, LIVER, LIPID, BMP, T7 #### [facility] [address] [address] [address] Roberto Cabral PROF 14(COMP METB)on 022 Albumin [Mass/Vol] 2.8 g/dL Critically low 3.4-5.0 [facility] Comment on above: Performed By: #### T SH, LIVER, LIPID, BMP, T7 #### [facility] [address] [address] [address] Roberto Cabral Albumin/Globulin [Mass ratio] 1.0 {ratio} Normal [facility] Comment on above: Performed By: #### T SH, LIVER, LIPID, BMP, T7 #### [facility] [address] [place] [address] Dr. Roberto Cabral ALP [Catalytic activity/Vol] 66 U/L Normal 46-116 [facility] Comment on above: Performed By: #### T SH, LIVER, LIPID, BMP, T7 #### [facility] [address] [place] [address] Dr. Roberto Cabral ALT [Catalytic activity/Vol] 15 U/L Critically low 16-63 [facility] Comment on above: Performed By: #### T SH, LIVER, LIPID, BMP, T7 #### [facility] [address] [address] [address] Roberto Cabral Anion gap [Moles/Vol] 15.2 mmol/L Normal [facility] Comment on above: Performed By: #### T SH, LIVER, LIPID, BMP, T7 #### [facility] [address] [address] [address] Roberto Cabral AST [Catalytic activity/Vol] 15 U/L Normal 15-37 [facility] Comment on above: Performed By: #### T SH, LIVER, LIPID, BMP, T7 #### [facility] [address] [address] [address] Roberto Cabral Bilirubin [Mass/Vol] 0.2 mg/dL Normal 0.2-1.0 [facility] Comment on above: Performed By: #### T SH, LIVER, LIPID, BMP, T7 #### [facility] [address] [address] [address] Roberto Cabral Calcium [Mass/Vol] 8.4 mg/dL Critically low 8.5-10.1 [facility] Comment on above: Performed By: #### T SH, LIVER, LIPID, BMP, T7 #### [facility] [address] [place] [address] Dr. Roberto Cabral Chloride [Moles/Vol] 114 mmol/L Critically high 98-107 [facility] Comment on above: Performed By: #### T SH, LIVER, LIPID, BMP, T7 #### [facility] [address] [place] [address] Dr. Roberto Cabral CO2 [Moles/Vol] 17.2 mmol/L Critically low 21.0-32.0 [facility] Comment on above: Performed By: #### T SH, LIVER, LIPID, BMP, T7 #### [facility] [address] [place] [address] Dr. Roberto Cabral Creatinine [Mass/Vol] 1.84 mg/dL Critically high 0.70-1.30 [facility] Comment on above: Performed By: #### T SH, LIVER, LIPID, BMP, T7 #### [facility] [address] [place] [address] Dr. Roberto Cabral EGFR-AF TAIWANESE 44 mL/min/1.73m2 Critically low >=60 [facility] Comment on above: Performed By: #### T SH, LIVER, LIPID, BMP, T7 #### [facility] [address] [place] [address] Dr. Roberto Cabral EGFR-NON AF TAIWANESE 36 mL/min/1.73m2 Critically low >=60 [facility] Comment on above: Performed By: #### T SH, LIVER, LIPID, BMP, T7 #### [facility] [address] [place] [address] Dr. Roberto Cabral Globulin (S) [Mass/Vol] 2.9 g/dL Normal [facility] Comment on above: Performed By: #### T SH, LIVER, LIPID, BMP, T7 #### [facility] [address] [address] [address] Roberto Cabral Glucose [Mass/Vol] 120 mg/dL Critically high 74-106 [facility] Comment on above: Performed By: #### T SH, LIVER, LIPID, BMP, T7 #### [facility] [address] [address] [address] Roberto Cabral Potassium [Moles/Vol] 5.4 mmol/L Critically high 3.5-5.1 [facility] Comment on above: Performed By: #### T SH, LIVER, LIPID, BMP, T7 #### [facility] [address] [place] [address] Dr. Roberto Cabral Protein [Mass/Vol] 5.7 g/dL Critically low 6.4-8.2 [facility] Comment on above: Performed By: #### T SH, LIVER, LIPID, BMP, T7 #### [facility] [address] [address] [address] Roberto Cabral Sodium [Moles/Vol] 141 mmol/L Normal 136-145 [facility] Comment on above: Performed By: #### T SH, LIVER, LIPID, BMP, T7 #### [facility] [address] [place] [address] Dr. Roberto Cabral Urea nitrogen [Mass/Vol] 56.0 mg/dL Critically high 7.0-18.0 [facility] Comment on above: Performed By: #### T SH, LIVER, LIPID, BMP, T7 #### [facility] [address] [place] [address] Dr. Roberto Cabral Urea nitrogen/Creatinine [Mass ratio] 30.4 mg/mg Normal [facility] Comment on above: Performed By: #### T SH, LIVER, LIPID, BMP, T7 #### [facility] [address] [place] [address] Dr. Roberto Cabral PROF CHEM 8 (BAS METB)on Anion gap [Moles/Vol] 13.3 mmol/L Normal [facility] Comment on above: Performed By: #### T SH, LIVER, LIPID, BMP, T7 #### [facility] [address] [address] [address] Roberto Cabral Calcium [Mass/Vol] 8.3 mg/dL Critically low 8.5-10.1 [facility] Comment on above: Performed By: #### T SH, LIVER, LIPID, BMP, T7 #### [facility] [address] [address] [address] Roberto Cabral Chloride [Moles/Vol] 113 mmol/L Critically high 98-107 [facility] Comment on above: Performed By: #### T SH, LIVER, LIPID, BMP, T7 #### [facility] [address] [place] [address] Dr. Roberto Cabral CO2 [Moles/Vol] 19.4 mmol/L Critically low 21.0-32.0 [facility] Comment on above: Performed By: #### T SH, LIVER, LIPID, BMP, T7 #### [facility] [address] [place] [address] Dr. Roberto Cabral Creatinine [Mass/Vol] 1.49 mg/dL Critically high 0.70-1.30 [facility] Comment on above: Performed By: #### T SH, LIVER, LIPID, BMP, T7 #### [facility] [address] [place] [address] Dr. Roberto Cabral EGFR-AF TAIWANESE 56 mL/min/1.73m2 Critically low >=60 [facility] Comment on above: Performed By: #### T SH, LIVER, LIPID, BMP, T7 #### [facility] [address] [place] [address] Dr. Roberto Cabral EGFR-NON AF TAIWANESE 46 mL/min/1.73m2 Critically low >=60 [facility] Comment on above: Performed By: #### T SH, LIVER, LIPID, BMP, T7 #### [facility] [address] [place] [address] Dr. Roberto Cabral Glucose [Mass/Vol] 142 mg/dL Critically high 74-106 [facility] Comment on above: Performed By: #### T SH, LIVER, LIPID, BMP, T7 #### [facility] [address] [place] [address] Dr. Roberto Cabral Potassium [Moles/Vol] 5.7 mmol/L Critically high 3.5-5.1 [facility] Comment on above: Performed By: #### T SH, LIVER, LIPID, BMP, T7 #### [facility] [address] [place] [address] Dr. Roberto Cabral Sodium [Moles/Vol] 140 mmol/L Normal 136-145 [facility] Comment on above: Performed By: #### T SH, LIVER, LIPID, BMP, T7 #### [facility] [address] [place] [address] Dr. Roberto Cabral Urea nitrogen [Mass/Vol] 46.0 mg/dL Critically high 7.0-18.0 [facility] Comment on above: Performed By: #### T SH, LIVER, LIPID, BMP, T7 #### [facility] [address] [place] [address] Dr. Roberto Cabral Urea nitrogen/Creatinine [Mass ratio] 30.9 mg/mg Normal [facility] Comment on above: Performed By: #### T SH, LIVER, LIPID, BMP, T7 #### [facility] [address] [place] [address] Dr. Roberto Cabral BNPon 12-10-2021 Natriuretic peptide B (Bld) [Mass/Vol] 167.0 pg/mL Normal <=1,800.0 [facility] Comment on above: Performed By: #### T SH, LIVER, LIPID, BMP, T7 #### [facility] [address] [place] [address] Dr. Roberto Cabral CBC AUTO DIFFon 12-10-2021 BASO # 0.1 103/ul Normal 0.0-0.1 [facility] Comment on above: Performed By: #### T SH, LIVER, LIPID, BMP, T7 #### [facility] [address] [place] [address] Dr. Roberto Cabral Basophils/100 WBC (Bld) 0.3 % Normal 0.2-2.0 [facility] Comment on above: Performed By: #### T SH, LIVER, LIPID, BMP, T7 #### [facility] [address] [address] [address] Roberto Cabral EO # 0.4 103/ul Normal 0.0-0.7 [facility] Comment on above: Performed By: #### T SH, LIVER, LIPID, BMP, T7 #### [facility] [address] [address] [address] Roberto Cabral Eosinophils/100 WBC (Bld) 2.6 % Normal 0.9-7.0 [facility] Comment on above: Performed By: #### T SH, LIVER, LIPID, BMP, T7 #### [facility] [address] [place] [address] Dr. Roberto Cabral Erythrocyte distribution width (RBC) [Ratio] 15.7 % Critically high 11.0-15.0 [facility] Comment on above: Performed By: #### T SH, LIVER, LIPID, BMP, T7 #### [facility] [address] [place] [address] Dr. Roberto Cabral Hematocrit (Bld) [Volume fraction] 36.1 % Critically low 42.0-54.0 [facility] Comment on above: Performed By: #### T SH, LIVER, LIPID, BMP, T7 #### [facility] [address] [place] [address] Dr. Roberto Cabral Hemoglobin (Bld) [Mass/Vol] 11.5 g/dL Critically low 14.0-18.0 [facility] Comment on above: Performed By: #### T SH, LIVER, LIPID, BMP, T7 #### [facility] [address] [place] [address] Dr. Roberto Cabral IG # 0.07 10e3/ul Critically high 0.00-0.03 [facility] Comment on above: Performed By: #### T SH, LIVER, LIPID, BMP, T7 #### [facility] [address] [place] [address] Dr. Roberto Cabral IG % 0.4 % Normal 0.0-0.5 [facility] Comment on above: Performed By: #### T SH, LIVER, LIPID, BMP, T7 #### [facility] [address] [place] [address] Dr. Roberto Cabral LYMPH # 1.4 103/ul Normal 1.2-3.8 [facility] Comment on above: Performed By: #### T SH, LIVER, LIPID, BMP, T7 #### [facility] [address] [place] [address] Dr. Roberto Cabral Lymphocytes/100 WBC (Bld) 9.0 % Critically low 20.5-60.0 [facility] Comment on above: Performed By: #### T SH, LIVER, LIPID, BMP, T7 #### [facility] [address] [place] [address] Dr. Roberto Cabral MANUAL DIFF REQ NO Normal [facility] Comment on above: Performed By: #### T SH, LIVER, LIPID, BMP, T7 #### [facility] [address] [place] [address] Dr. Roberto Cabral MCH (RBC) [Entitic mass] 28.1 pg Normal 25.9-34.0 [facility] Comment on above: Performed By: #### T SH, LIVER, LIPID, BMP, T7 #### [facility] [address] [place] [address] Dr. Roberto Cabral MCHC (RBC) [Mass/Vol] 31.9 g/dL Normal 29.9-35.2 [facility] Comment on above: Performed By: #### T SH, LIVER, LIPID, BMP, T7 #### [facility] [address] [place] [address] Dr. Roberto Cabral MCV (RBC) [Entitic vol] 88.3 fL Normal 80.0-94.0 [facility] Comment on above: Performed By: #### T SH, LIVER, LIPID, BMP, T7 #### [facility] [address] [place] [address] Dr. Roberto Cabral MONO # 1.4 103/ul Critically high 0.3-0.8 [facility] Comment on above: Performed By: #### T SH, LIVER, LIPID, BMP, T7 #### [facility] [address] [address] [address] Roberto Cabral Monocytes/100 WBC (Bld) 8.8 % Normal 1.7-12.0 [facility] Comment on above: Performed By: #### T SH, LIVER, LIPID, BMP, T7 #### [facility] [address] [address] [address] Roberto Cabral NEUT # 12.3 103/ul Critically high 1.4-6.5 [facility] Comment on above: Performed By: #### T SH, LIVER, LIPID, BMP, T7 #### [facility] [address] [address] [address] Roberto Cabral Neutrophils/100 WBC (Bld) 78.9 % Critically high 43.0-75.0 [facility] Comment on above: Performed By: #### T SH, LIVER, LIPID, BMP, T7 #### [facility] [address] [place] [address] Dr. Roberto Cabral Platelet mean volume (Bld) [Entitic vol] 10.5 fL Normal 9.5-13.5 [facility] Comment on above: Performed By: #### T SH, LIVER, LIPID, BMP, T7 #### [facility] [address] [place] [address] Dr. Roberto Cabral PLT 316 103/ul Normal 150-450 [facility] Comment on above: Performed By: #### T SH, LIVER, LIPID, BMP, T7 #### [facility] [address] [address] [address] Roberto Cabral RBC 4.09 106/ul Critically low 4.70-6.10 [facility] Comment on above: Performed By: #### T SH, LIVER, LIPID, BMP, T7 #### [facility] [address] [place] [address] Dr. Roberto Cabral WBC 15.6 103/ul Critically high 4.0-11.0 [facility] Comment on above: Performed By: #### T SH, LIVER, LIPID, BMP, T7 #### [facility] [address] [place] [address] Dr. Roberto Cabral CULTURE URINEon 12-10-2021 CULTURE URINE Culture Observations : No growth Normal [facility] Comment on above: Performed By: #### T SH, LIVER, LIPID, BMP, T7 #### [facility] [address] [place] [address] Dr. Roberto Cabral ER URINE PROFILEon 2 Bilirubin Ql (U) Negative Normal NEGATIVE [facility] Comment on above: Performed By: #### E RUR #### [facility] [address] [place] [address] Dr. Roberto Cabral Clarity (U) CLEAR Normal CLEAR [facility] Comment on above: Performed By: #### E RUR #### [facility] [address] [place] [address] Dr. Roberto Cabral Color (U) LT. YELLOW Normal YELLOW [facility] Comment on above: Performed By: #### E RUR #### [facility] [address] [place] [address] Dr. Roberto Cabral ERUAHD A micrscopic examination will be performed if indicated. Normal [facility] Comment on above: Performed By: #### E RUR #### [facility] [address] [place] [address] Dr. Roberto Cabral Glucose Ql (U) Negative Normal NEGATIVE [facility] Comment on above: Performed By: #### E RUR #### [facility] [address] [place] [address] Dr. Roberto Cabral Hemoglobin Ql (U) Negative Normal NEGATIVE [facility] Comment on above: Performed By: #### E RUR #### [facility] [address] [place] [address] Dr. Roberto Cabral Ketones Ql (U) Negative Normal NEGATIVE [facility] Comment on above: Performed By: #### E RUR #### [facility] [address] [place] [address] Dr. Roberto Cabral LEUKOCYTES Negative Normal NEGATIVE [facility] Comment on above: Performed By: #### E RUR #### [facility] [address] [place] [address] Dr. Roberto Cabral Nitrite Ql (U) Negative Normal NEGATIVE [facility] Comment on above: Performed By: #### E RUR #### [facility] [address] [place] [address] Dr. Roberto Cabral pH (U) 5.0 [pH] Normal 5-9 [facility] Comment on above: Performed By: #### E RUR #### [facility] [address] [place] [address] Dr. Roberto Cabral SPEC GRAVITY 1.015 Normal 1.005-<=1.025 [facility] Comment on above: Performed By: #### E RUR #### [facility] [address] [place] [address] Dr. Roberto Cabral UA PROTEIN Negative Normal NEGATIVE/ TRACE [facility] Comment on above: Performed By: #### E RUR #### [facility] [address] [place] [address] Dr. Roberto Cabral UR MICRO IND NOT INDICATED Normal [facility] Comment on above: Performed By: #### E RUR #### [facility] [address] [place] [address] Dr. Roberto Cabral Urobilinogen Qn (U) 0.2 {Noman'U}/dL Normal 0.2 - 1. 0 [facility] Comment on above: Performed By: #### E RUR #### [facility] [address] [place] [address] Dr. Roberto Cabral GI PANEL (PCR)on 12-10-2021 Adenovirus F 40/41 Not detected Normal NOT DETECTED [facility] Comment on above: Performed By: #### T SH, LIVER, LIPID, BMP, T7 #### [facility] [address] [place] [address] Dr. Roberto Cabral Astrovirus Not detected Normal NOT DETECTED [facility] Comment on above: Performed By: #### T SH, LIVER, LIPID, BMP, T7 #### [facility] [address] [place] [address] Dr. Roberto Cabral C. Diff toxin A/B Not detected Normal NOT DETECTED [facility] Comment on above: Performed By: #### T SH, LIVER, LIPID, BMP, T7 #### [facility] [address] [address] [address] Roberto Cabral Campylobacter Not detected Normal NOT DETECTED [facility] Comment on above: Performed By: #### T SH, LIVER, LIPID, BMP, T7 #### [facility] [address] [address] [address] Roberto Cabral Cryptosporidium Not detected Normal NOT DETECTED [facility] Comment on above: Performed By: #### T SH, LIVER, LIPID, BMP, T7 #### [facility] [address] [address] [address] Roberto Cabral Cyclos. Cayetanensis Not detected Normal NOT DETECTED [facility] Comment on above: Performed By: #### T SH, LIVER, LIPID, BMP, T7 #### [facility] [address] [address] [address] Roberto Cabral E. Coli O157 Not Applicable Normal Not Applicable [facility] Comment on above: Performed By: #### T SH, LIVER, LIPID, BMP, T7 #### [facility] [address] [address] [address] Roberto Cabral E. histolytica Not detected Normal NOT DETECTED [facility] Comment on above: Performed By: #### T SH, LIVER, LIPID, BMP, T7 #### [facility] [address] [address] [address] Roberto Cabral EAEC Not detected Normal NOT DETECTED [facility] Comment on above: Performed By: #### T SH, LIVER, LIPID, BMP, T7 #### [facility] [address] [address] [address] Roberto Cabral EIEC Not detected Normal NOT DETECTED [facility] Comment on above: Performed By: #### T SH, LIVER, LIPID, BMP, T7 #### [facility] [address] [address] [address] Roberto Cabral EPEC Not detected Normal NOT DETECTED [facility] Comment on above: Performed By: #### T SH, LIVER, LIPID, BMP, T7 #### [facility] [address] [address] [address] Roberto Cabral ETEC Not detected Normal NOT DETECTED [facility] Comment on above: Performed By: #### T SH, LIVER, LIPID, BMP, T7 #### [facility] [address] [address] [address] Roberto Mcgrathlijossy Not detected Normal NOT DETECTED [facility] Comment on above: Performed By: #### T SH, LIVER, LIPID, BMP, T7 #### [facility] [address] [address] [address] Roberto CARDENAS CONTROLS PASSED Normal [facility] Comment on above: Performed By: #### T SH, LIVER, LIPID, BMP, T7 #### [facility] [address] [address] [address] Roberto GILL HEADER GI PANEL BACTERIA Normal [facility] Comment on above: Performed By: #### T SH, LIVER, LIPID, BMP, T7 #### [facility] [address] [address] [address] Roberto IVEY ECOLI GI PANEL DIARRHEAGENIC E.COLI / SHIGELLA Normal [facility] Comment on above: Performed By: #### T SH, LIVER, LIPID, BMP, T7 #### [facility] [address] [address] [address] Roberto IVEY INFO SEE BELOW Normal [facility] Comment on above: Result Comment: EAEC - Enteroaggregative E. Coli EPEC- Enteropathogenic E. Coli ETEC- Enterotoxigenic E. Coli lt/st STEC- Shigella-like toxin-producing E. Coli stx1/stx2 EIEC- Shigella/Enteroinvasive E. Coli Performed By: #### T SH, LIVER, LIPID, BMP, T7 #### [facility] [address] [address] [address] Roberto IVEY PARASITES GI PANEL PARASITES Normal [facility] Comment on above: Performed By: #### T SH, LIVER, LIPID, BMP, T7 #### [facility] [address] [address] [address] Roberto Cabral [facility] VIRUS GI PANEL VIRUSES Normal [facility] Comment on above: Performed By: #### T SH, LIVER, LIPID, BMP, T7 #### [facility] [address] [address] [address] Roberto Cabral Norovirus GI/GII Not detected Normal NOT DETECTED [facility] Comment on above: Performed By: #### T SH, LIVER, LIPID, BMP, T7 #### [facility] [address] [address] [address] Roberto Cabral P. Shigelloides Not detected Normal NOT DETECTED [facility] Comment on above: Performed By: #### T SH, LIVER, LIPID, BMP, T7 #### [facility] [address] [address] [address] Roberto Cabral Rotavirus A Not detected Normal NOT DETECTED [facility] Comment on above: Performed By: #### T SH, LIVER, LIPID, BMP, T7 #### [facility] [address] [address] [address] Roberto Cabral Salmonella Not detected Normal NOT DETECTED [facility] Comment on above: Performed By: #### T SH, LIVER, LIPID, BMP, T7 #### [facility] [address] [place] [address] Dr. Roberto Cabral Sapovirus Detected Abnormal NOT DETECTED [facility] Comment on above: Performed By: #### T SH, LIVER, LIPID, BMP, T7 #### [facility] [address] [address] [address] Roberto Cabral STEC Not detected Normal NOT DETECTED [facility] Comment on above: Performed By: #### T SH, LIVER, LIPID, BMP, T7 #### [facility] [address] [address] [address] Roberto Cabral Vibrio Not detected Normal NOT DETECTED [facility] Comment on above: Performed By: #### T SH, LIVER, LIPID, BMP, T7 #### [facility] [address] [address] [address] Roberto Cabral Vibrio Cholera Not detected Normal NOT DETECTED [facility] Comment on above: Performed By: #### T SH, LIVER, LIPID, BMP, T7 #### [facility] [address] [address] [address] Roberto Kam. Enterocolitica Not detected Normal NOT DETECTED [facility] Comment on above: Performed By: #### T SH, LIVER, LIPID, BMP, T7 #### [facility] [address] [address] [address] Roberto Cabral POINT OF CARE GLUCOSEon 12-01 Glucose [Mass/Vol] 73 mg/dL Critically low 74-106 [facility] Comment on above: Performed By: #### P OCGLUC #### [facility] [address] [place] [address] Dr. Roberto Cabral Glucose [Mass/Vol] 69 mg/dL Critically low 74-106 [facility] Comment on above: Performed By: #### T SH, LIVER, LIPID, BMP, T7 #### [facility] [address] [place] [address] Dr. Roberto Cabral Glucose [Mass/Vol] 99 mg/dL Normal 74-106 [facility] Comment on above: Performed By: #### P OCGLUC #### [facility] [address] [place] [address] Dr. Roberto Cabral Glucose [Mass/Vol] 67 mg/dL Critically low 74-106 [facility] Comment on above: Performed By: #### T SH, LIVER, LIPID, BMP, T7 #### [facility] [address] [place] [address] Dr. Roberto Cabral Glucose [Mass/Vol] 74 mg/dL Normal 74-106 [facility] Comment on above: Performed By: #### P OCGLUC #### [facility] [address] [place], [place] [address] Dr. Roberto Cabral Glucose [Mass/Vol] 55 mg/dL Critically low 74-106 [facility] Comment on above: Performed By: #### T SH, LIVER, LIPID, BMP, T7 #### [facility] [address] [place] [address] Dr. Roberto Cabral PROF 14(COMP METB)on 022 Albumin [Mass/Vol] 3.1 g/dL Critically low 3.4-5.0 [facility] Comment on above: Performed By: #### T SH, LIVER, LIPID, BMP, T7 #### [facility] [address] [address] [address] Roberto Cabral Albumin/Globulin [Mass ratio] 0.9 {ratio} Normal [facility] Comment on above: Performed By: #### T SH, LIVER, LIPID, BMP, T7 #### [facility] [address] [place] [address] Dr. Roberto Cabral ALP [Catalytic activity/Vol] 73 U/L Normal 46-116 [facility] Comment on above: Performed By: #### T SH, LIVER, LIPID, BMP, T7 #### [facility] [address] [place] [address] Dr. Roberto Cabral ALT [Catalytic activity/Vol] 17 U/L Normal 16-63 [facility] Comment on above: Performed By: #### T SH, LIVER, LIPID, BMP, T7 #### [facility] [address] [address] [address] Roberto Cabral Anion gap [Moles/Vol] 17.7 mmol/L Normal [facility] Comment on above: Performed By: #### T SH, LIVER, LIPID, BMP, T7 #### [facility] [address] [place] [address] Dr. Roberto Cabral AST [Catalytic activity/Vol] 13 U/L Critically low 15-37 [facility] Comment on above: Performed By: #### T SH, LIVER, LIPID, BMP, T7 #### [facility] [address] [place] [address] Dr. Roberto Cabral Bilirubin [Mass/Vol] 0.2 mg/dL Normal 0.2-1.0 [facility] Comment on above: Performed By: #### T SH, LIVER, LIPID, BMP, T7 #### [facility] [address] [place] [address] Dr. Roberto Cabral Calcium [Mass/Vol] 8.7 mg/dL Normal 8.5-10.1 [facility] Comment on above: Performed By: #### T SH, LIVER, LIPID, BMP, T7 #### [facility] [address] [address] [address] Roberto Cabral Chloride [Moles/Vol] 110 mmol/L Critically high 98-107 [facility] Comment on above: Performed By: #### T SH, LIVER, LIPID, BMP, T7 #### [facility] [address] [place] [address] Dr. Roberto Cabral CO2 [Moles/Vol] 16.0 mmol/L Critically low 21.0-32.0 [facility] Comment on above: Performed By: #### T SH, LIVER, LIPID, BMP, T7 #### [facility] [address] [place] [address] Dr. Roberto Cabral Creatinine [Mass/Vol] 1.85 mg/dL Critically high 0.70-1.30 [facility] Comment on above: Performed By: #### T SH, LIVER, LIPID, BMP, T7 #### [facility] [address] [place] [address] Dr. Roberto Cabral EGFR-AF TAIWANESE 43 mL/min/1.73m2 Critically low >=60 [facility] Comment on above: Performed By: #### T SH, LIVER, LIPID, BMP, T7 #### [facility] [address] [place] [address] Dr. Roberto Cabral EGFR-NON AF TAIWANESE 36 mL/min/1.73m2 Critically low >=60 [facility] Comment on above: Performed By: #### T SH, LIVER, LIPID, BMP, T7 #### [facility] [address] [place] [address] Dr. Roberto Cabral Globulin (S) [Mass/Vol] 3.4 g/dL Normal [facility] Comment on above: Performed By: #### T SH, LIVER, LIPID, BMP, T7 #### [facility] [address] [place] [address] Dr. Roberto Cabral Glucose [Mass/Vol] 113 mg/dL Critically high 74-106 [facility] Comment on above: Performed By: #### T SH, LIVER, LIPID, BMP, T7 #### [facility] [address] [place] [address] Dr. Roberto Cabral Potassium [Moles/Vol] 4.7 mmol/L Normal 3.5-5.1 [facility] Comment on above: Performed By: #### T SH, LIVER, LIPID, BMP, T7 #### [facility] [address] [place] [address] Dr. Roberto Cabral Protein [Mass/Vol] 6.5 g/dL Normal 6.4-8.[address] [facility] Comment on above: Performed By: #### T SH, LIVER, LIPID, BMP, T7 #### [facility] [address] [place] [address] Dr. Roberto Cabral Sodium [Moles/Vol] 139 mmol/L Normal 136-145 [facility] Comment on above: Performed By: #### T SH, LIVER, LIPID, BMP, T7 #### [facility] [address] [place] [address] Dr. Roberto Cabral Urea nitrogen [Mass/Vol] 66.0 mg/dL Critically high 7.0-18.0 [facility] Comment on above: Performed By: #### T SH, LIVER, LIPID, BMP, T7 #### [facility] [address] [place] [address] Dr. Roberto Cabral Urea nitrogen/Creatinine [Mass ratio] 35.7 mg/mg Normal [facility] Comment on above: Performed By: #### T SH, LIVER, LIPID, BMP, T7 #### [facility] [address] [place] [address] Dr. Roberto Cabral CBC AUTO DIFFon 12-09-2021 BASO # 0.0 103/ul Normal 0.0-0.1 [facility] Comment on above: Performed By: #### T SH, LIVER, LIPID, BMP, T7 #### [facility] [address] [place] [address] Dr. Roberto Cabral Basophils/100 WBC (Bld) 0.2 % Normal 0.2-2.0 [facility] Comment on above: Performed By: #### T SH, LIVER, LIPID, BMP, T7 #### [facility] [address] [place] [address] Dr. Roberto Cabral EO # 0.3 103/ul Normal 0.0-0.7 [facility] Comment on above: Performed By: #### T SH, LIVER, LIPID, BMP, T7 #### [facility] [address] [place] [address] Dr. Roberto Cabral Eosinophils/100 WBC (Bld) 1.7 % Normal 0.9-7.0 [facility] Comment on above: Performed By: #### T SH, LIVER, LIPID, BMP, T7 #### [facility] [address] [place] [address] Dr. Roberto Cabral Erythrocyte distribution width (RBC) [Ratio] 15.4 % Critically high 11.0-15.0 [facility] Comment on above: Performed By: #### T SH, LIVER, LIPID, BMP, T7 #### [facility] [address] [place] [address] Dr. Roberto Cabral Hematocrit (Bld) [Volume fraction] 40.2 % Critically low 42.0-54.0 [facility] Comment on above: Performed By: #### T SH, LIVER, LIPID, BMP, T7 #### [facility] [address] [place] [address] Dr. Roberto Cabral Hemoglobin (Bld) [Mass/Vol] 12.6 g/dL Critically low 14.0-18.0 [facility] Comment on above: Performed By: #### T SH, LIVER, LIPID, BMP, T7 #### [facility] [address] [place] [address] Dr. Roberto Cabral IG # 0.09 10e3/ul Critically high 0.00-0.03 [facility] Comment on above: Performed By: #### T SH, LIVER, LIPID, BMP, T7 #### [facility] [address] [place] [address] Dr. Roberto Cabral IG % 0.5 % Normal 0.0-0.5 [facility] Comment on above: Performed By: #### T SH, LIVER, LIPID, BMP, T7 #### [facility] [address] [place] [address] Dr. Roberto Cabral LYMPH # 1.5 103/ul Normal 1.2-3.8 [facility] Comment on above: Performed By: #### T SH, LIVER, LIPID, BMP, T7 #### [facility] [address] [place] [address] Dr. Roberto Cabral Lymphocytes/100 WBC (Bld) 8.0 % Critically low 20.5-60.0 [facility] Comment on above: Performed By: #### T SH, LIVER, LIPID, BMP, T7 #### [facility] [address] [place] [address] Dr. Roberto Cabral MANUAL DIFF REQ NO Normal [facility] Comment on above: Performed By: #### T SH, LIVER, LIPID, BMP, T7 #### [facility] [address] [place] [address] Dr. Roberto Cabral MCH (RBC) [Entitic mass] 28.0 pg Normal 25.9-34.0 [facility] Comment on above: Performed By: #### T SH, LIVER, LIPID, BMP, T7 #### [facility] [address] [place] [address] Dr. Roberto Cabral MCHC (RBC) [Mass/Vol] 31.3 g/dL Normal 29.9-35.2 [facility] Comment on above: Performed By: #### T SH, LIVER, LIPID, BMP, T7 #### [facility] [address] [place] [address] Dr. Roberto Cabral MCV (RBC) [Entitic vol] 89.3 fL Normal 80.0-94.0 [facility] Comment on above: Performed By: #### T SH, LIVER, LIPID, BMP, T7 #### [facility] [address] [place] [address] Dr. Roberto Cabral MONO # 1.5 103/ul Critically high 0.3-0.8 [facility] Comment on above: Performed By: #### T SH, LIVER, LIPID, BMP, T7 #### [facility] [address] [place] [address] Dr. Roberto Cabral Monocytes/100 WBC (Bld) 8.2 % Normal 1.7-12.0 [facility] Comment on above: Performed By: #### T SH, LIVER, LIPID, BMP, T7 #### [facility] [address] [address] [address] Roberto Cabral NEUT # 14.9 103/ul Critically high 1.4-6.5 [facility] [place] Comment on above: Performed By: #### T SH, LIVER, LIPID, BMP, T7 #### [facility] [address] [address] [address] Roberto Cabral Neutrophils/100 WBC (Bld) 81.4 % Critically high 43.0-75.0 [facility] Comment on above: Performed By: #### T SH, LIVER, LIPID, BMP, T7 #### [facility] [address] [place] [address] Dr. Roberto Cabral Platelet mean volume (Bld) [Entitic vol] 10.0 fL Normal 9.5-13.5 [facility] Comment on above: Performed By: #### T SH, LIVER, LIPID, BMP, T7 #### [facility] [address] [place] [address] Dr. Roberto Cabral PLT 358 103/ul Normal 150-450 [facility] Comment on above: Performed By: #### T SH, LIVER, LIPID, BMP, T7 #### [facility] [address] [place] [address] Dr. Roberto Cabral RBC 4.50 106/ul Critically low 4.70-6.10 [facility] Comment on above: Performed By: #### T SH, LIVER, LIPID, BMP, T7 #### [facility] [address] [place] [address] Dr. Roberto Cabral WBC 18.3 103/ul Critically high 4.0-11.0 [facility] [place] Comment on above: Performed By: #### T SH, LIVER, LIPID, BMP, T7 #### [facility] [address] [place] [address] ABD/PELVIS WO CONon [...] DEVIN ORTIZ Date: 2021-12-09 20:39 Normal [facility] Covid-19 PCR (CVDTB)on SARS-CoV-2 (COVID-19) RNA JOSÉ+probe Ql (Unsp spec) Not detected Normal NOT DETECTED [facility] Comment on above: Result Comment: When [...] for this test is supported by the [place] of Health and Human Service's declaration that [...] T SH, LIVER, LIPID, BMP, T7 #### [facility] [address] [place] [address] Dr. Roberto Cabral LACTATE/LACTIC ACIDon 2021 Lactate [Moles/Vol] 1.1 mmol/L Normal 0.4-1.9 [facility] Comment on above: Performed By: #### T SH, LIVER, LIPID, BMP, T7 #### [facility] [address] [place] [address] Dr. Roberto Cabral LIPASEon 12-09-2021 Lipase [Catalytic activity/Vol] 186.0 U/L Normal 73.0-393.0 [facility] Comment on above: Performed By: #### T SH, LIVER, LIPID, BMP, T7 #### [facility] [address] [place] [address] Dr. Roberto Cabral PROF 14(COMP METB)on 022 Albumin [Mass/Vol] 3.6 g/dL Normal 3.4-5.0 [facility] Comment on above: Performed By: #### T SH, LIVER, LIPID, BMP, T7 #### [facility] [address] [address] [address] Roberto Cabral Albumin/Globulin [Mass ratio] 1.0 {ratio} Normal [facility] Comment on above: Performed By: #### T SH, LIVER, LIPID, BMP, T7 #### [facility] [address] [address] [address] Roberto Cabral ALP [Catalytic activity/Vol] 79 U/L Normal 46-116 [facility] Comment on above: Performed By: #### T SH, LIVER, LIPID, BMP, T7 #### [facility] [address] [address] [address] Roberto Cabral ALT [Catalytic activity/Vol] 19 U/L Normal 16-63 [facility] Comment on above: Performed By: #### T SH, LIVER, LIPID, BMP, T7 #### [facility] [address] [place] [address] Dr. Roberto Cabral Anion gap [Moles/Vol] 20.6 mmol/L Normal [facility] Comment on above: Performed By: #### T SH, LIVER, LIPID, BMP, T7 #### [facility] [address] [place] [address] Dr. Roberto Cabral AST [Catalytic activity/Vol] 19 U/L Normal 15-37 [facility] Comment on above: Performed By: #### T SH, LIVER, LIPID, BMP, T7 #### [facility] [address] [place] [address] Dr. Roberto Cabral Bilirubin [Mass/Vol] 0.3 mg/dL Normal 0.2-1.0 [facility] Comment on above: Performed By: #### T SH, LIVER, LIPID, BMP, T7 #### [facility] [address] [address] [address] Roberto Cabral Calcium [Mass/Vol] 9.4 mg/dL Normal 8.5-10.1 [facility] Comment on above: Performed By: #### T SH, LIVER, LIPID, BMP, T7 #### [facility] [address] [address] [address] Roberto Cabral Chloride [Moles/Vol] 107 mmol/L Normal 98-107 [facility] Comment on above: Performed By: #### T SH, LIVER, LIPID, BMP, T7 #### [facility] [address] [address] [address] Roberto Cabral CO2 [Moles/Vol] 14.9 mmol/L Critically low 21.0-32.0 [facility] Comment on above: Performed By: #### T SH, LIVER, LIPID, BMP, T7 #### [facility] [address] [address] [address] Roberto Cabral Creatinine [Mass/Vol] 2.11 mg/dL Critically high 0.70-1.30 [facility] Comment on above: Performed By: #### T SH, LIVER, LIPID, BMP, T7 #### [facility] [address] [place] [address] Dr. Roberto Cabral EGFR-AF TAIWANESE 37 mL/min/1.73m2 Critically low >=60 [facility] Comment on above: Performed By: #### T SH, LIVER, LIPID, BMP, T7 #### [facility] [address] [place] [address] Dr. Roberto Cabral EGFR-NON AF TAIWANESE 31 mL/min/1.73m2 Critically low >=60 [facility] Comment on above: Performed By: #### T SH, LIVER, LIPID, BMP, T7 #### [facility] [address] [place] [address] Dr. Roberto Cabral Globulin (S) [Mass/Vol] 3.5 g/dL Normal [facility] Comment on above: Performed By: #### T SH, LIVER, LIPID, BMP, T7 #### [facility] [address] [place] [address] Dr. Roberto Cabral Glucose [Mass/Vol] 170 mg/dL Critically high 74-106 [facility] Comment on above: Performed By: #### T SH, LIVER, LIPID, BMP, T7 #### [facility] [address] [place] [address] Dr. Roberto Cabral Potassium [Moles/Vol] 5.5 mmol/L Critically high 3.5-5.1 [facility] Comment on above: Performed By: #### T SH, LIVER, LIPID, BMP, T7 #### [facility] [address] [address] [address] Roberto Cabral Protein [Mass/Vol] 7.1 g/dL Normal 6.4-8.[address] [facility] Comment on above: Performed By: #### T SH, LIVER, LIPID, BMP, T7 #### [facility] [address] [address] [address] Roberto Cabral Sodium [Moles/Vol] 137 mmol/L Normal 136-[address] [facility] Comment on above: Performed By: #### T SH, LIVER, LIPID, BMP, T7 #### [facility] [address] [place] [address] Dr. Roberto Cabral Urea nitrogen [Mass/Vol] 70.0 mg/dL Critically high 7.0-18.0 [facility] Comment on above: Performed By: #### T SH, LIVER, LIPID, BMP, T7 #### [facility] [address] [place] [address] Dr. Roberto Cabral Urea nitrogen/Creatinine [Mass ratio] 33.2 mg/mg Normal [facility] Comment on above: Performed By: #### T SH, LIVER, LIPID, BMP, T7 #### [facility] [address] [place] [address] Dr. Roberto Cabral PROTIMEon 12-09-2021 INR Coag (PPP) [Relative time] 1.04 {INR} Normal [facility] Comment on above: Performed By: #### T SH, LIVER, LIPID, BMP, T7 #### [facility] [address] [place] [address] Dr. Roberto Cabral INR GUIDELINES SEE BELOW Normal [facility] Comment on above: Result Comment: NIKI RED INR: 2.0 - 3.0 CONDITIONS NOT LISTED BELOW 2.5 - 3.5 FOR PROSTHETIC HEART VALVE REPLACEMENT 2.5 - 3.5 RECURRENT THROMBOSIS Performed By: #### T SH, LIVER, LIPID, BMP, T7 #### [facility] [address] [place] [address] Dr. Roberto Cabral PT Coag (PPP) [Time] 11.2 s Normal 9.0-11.6 [facility] Comment on above: Performed By: #### T SH, LIVER, LIPID, BMP, T7 #### [facility] [address] [place], [place] [address] Dr. Roberto Cabral PTTon 12-09-2021 aPTT Coag (Bld) [Time] 33.4 s Normal 22.3-36.2 [facility] Comment on above: Performed By: #### T SH, LIVER, LIPID, BMP, T7 #### [facility] [address] [place], [place] [address] Dr. Roberto Cabral TROPONIN, HIGH SENSITIVITYon 12-09-2021 HSTROP 11.4 pg/mL Normal 4.0-76.1 [facility] Comment on above: Result Comment: CUT- OFF POINTS HAVE BEEN ESTABLISHED BASED ON THE FOURTH UNIVERSAL DEFINITIONS OF MYOCARDIAL INFARCTION. THE UPPER REFERENCE LIMIT (URL) OF TROPONIN, DEFINED THE 99TH PERCENTILE OF cTnI DISTRIBUTION IN A REFERENCE POPULATION, HAS BEEN CONFIRMED THE DECISION THRESHOLD FOR [place] DIAGNOSIS. Performed By: #### T SH, LIVER, LIPID, BMP, T7 #### [facility] [address] [address] [address] Roberto Cabral POINT OF CARE GLUCOSEon 10-31 Glucose [Mass/Vol] 115 mg/dL Critically high 74-106 [facility] Comment on above: Performed By: #### T SH, LIVER, LIPID, BMP, T7 #### [facility] [address] [address] [address] Roberto Cabral Vital Signs Date Time Vital Sign Value Performing Clinician Facility 12-29-2023 09:39-0400 Body temperature 97.5 [degF] Austin Springer MD Work Phone: [facility] 12-29-2023 09:39-0400 Body weight 104.1 kg Austin Springer MD Work Phone: [facility] 12-29-2023 09:39-0400 Diastolic blood pressure 66 mm[Hg] Austin Springer MD Work Phone: [facility] 12-29-2023 09:39-0400 Heart rate 57 /min Austin Springer MD Work Phone: [facility] 12-29-2023 09:39-0400 Respiratory rate 18 /min Austin Springer MD Work Phone: [facility] 12-29-2023 09:39-0400 SaO2% (BldA) [Mass fraction] 94 % Austin Springer MD Work Phone: [facility] 12-29-2023 09:39-0400 Systolic blood pressure 165 mm[Hg] Austin Springer MD Work Phone: [facility] 11-10-2023 09:29-0400 Body temperature 98.01 [degF] Chair Pamlico Work Phone: [facility] 11-10-2023 09:29-0400 Diastolic blood pressure 74 mm[Hg] Chair Syed Work Phone: [facility] 11-10-2023 09:29-0400 Heart rate 56 /min Chair Pamlico Work Phone: [facility] 11-10-2023 09:29-0400 Respiratory rate 18 /min Chair Syed Work Phone: [facility] 11-10-2023 09:29-0400 SaO2% (BldA) [Mass fraction] 95 % Chair Pamlico Work Phone: [facility] 11-10-2023 09:29-0400 Systolic blood pressure 150 mm[Hg] Chair Pamlico Work Phone: [facility] 11-03-2023 09:18-0400 Body temperature 97.7 [degF] Chair Syed Work Phone: [facility] 11-03-2023 09:18-0400 Diastolic blood pressure 73 mm[Hg] Chair Pamlico Work Phone: [facility] 11-03-2023 09:18-0400 Heart rate 58 /min Chair Syed Work Phone: [facility] 11-03-2023 09:18-0400 Respiratory rate 16 /min Chair Pamlico Work Phone: [facility] 11-03-2023 09:18-0400 Systolic blood pressure 135 mm[Hg] Chair Syed Work Phone: [facility] 10-27-2023 09:10-0400 Body temperature 97.11 [degF] Chair Pamlico Work Phone: [facility] 10-27-2023 09:10-0400 Diastolic blood pressure 64 mm[Hg] Chair Pamlico Work Phone: [facility] 10-27-2023 09:10-0400 Heart rate 61 /min Chair Syed Work Phone: [facility] 10-27-2023 09:10-0400 Respiratory rate 16 /min Chair Syed Work Phone: [facility] 10-27-2023 09:10-0400 SaO2% (BldA) [Mass fraction] 96 % Chair Pamlico Work Phone: [facility] 10-27-2023 09:10-0400 Systolic blood pressure 149 mm[Hg] Chair Syed Work Phone: [facility] 10-20-2023 10:34-0400 Body temperature 97.2 [degF] Austin Springer MD Work Phone: [facility] 10-20-2023 10:34-0400 Body weight 103.3 kg Austin Springer MD Work Phone: [facility] 10-20-2023 10:34-0400 Diastolic blood pressure 52 mm[Hg] Austin Springer MD Work Phone: [facility] 10-20-2023 10:34-0400 Heart rate 55 /min Austin Springer MD Work Phone: [facility] 10-20-2023 10:34-0400 Respiratory rate 18 /min Austin Springer MD Work Phone: [facility] 10-20-2023 10:34-0400 SaO2% (BldA) [Mass fraction] 95 % Austin Springer MD Work Phone: [facility] 10-20-2023 10:34-0400 Systolic blood pressure 182 mm[Hg] Austin Springer MD Work Phone: [facility] 09-22-2023 13:04-0400 Body temperature 97.59 [degF] Chair Pamlico Work Phone: [facility] 09-22-2023 13:04-0400 Diastolic blood pressure 71 mm[Hg] Chair Syed Work Phone: [facility] 09-22-2023 13:04-0400 Heart rate 61 /min Chair Pamlico Work Phone: [facility] 09-22-2023 13:04-0400 Respiratory rate 16 /min Chair Syed Work Phone: [facility] 09-22-2023 13:04-0400 SaO2% (BldA) [Mass fraction] 98 % Chair Pamlico Work Phone: [facility] 09-22-2023 13:04-0400 Systolic blood pressure 166 mm[Hg] Chair Pamlico Work Phone: [facility] 09-15-2023 12:55-0400 Body temperature 98.01 [degF] Chair Syed Work Phone: [facility] 09-15-2023 12:55-0400 Diastolic blood pressure 78 mm[Hg] Chair Pamlico Work Phone: [facility] 09-15-2023 12:55-0400 Heart rate 65 /min Chair Pamlico Work Phone: [facility] 09-15-2023 12:55-0400 Respiratory rate 18 /min Chair Syed Work Phone: [facility] 09-15-2023 12:55-0400 SaO2% (BldA) [Mass fraction] 97 % Chair Syed Work Phone: [facility] 09-15-2023 12:55-0400 Systolic blood pressure 156 mm[Hg] Chair Syed Work Phone: [facility] 09-04-2023 11:14-0500 Diastolic blood pressure 40 mm[Hg] Austin Springer MD Work Phone: [facility] 09-04-2023 11:14-0500 Heart rate 61 /min Austin Springer MD Work Phone: [facility] 09-04-2023 11:14-0500 Systolic blood pressure 159 mm[Hg] Austin Springer MD Work Phone: [facility] 09-04-2023 11:02-0500 Body temperature 97.5 [degF] Austin Springer MD Work Phone: [facility] 09-04-2023 11:02-0500 Body weight 102.3 kg Austin Springer MD Work Phone: [facility] 09-04-2023 11:02-0500 Respiratory rate 18 /min Austin Springer MD Work Phone: [facility] 09-04-2023 11:02-0500 SaO2% (BldA) [Mass fraction] 96 % Austin Springer MD Work Phone: [facility] 08-29-2023 15:01-0500 Blood Pressure Location Gwen LORENZO [facility] 08-29-2023 15:01-0500 Diastolic blood pressure 60 mm[Hg] Gwen LORENZO [facility] [place] 08-29-2023 15:01-0500 Heart rate 68 /min Gwen LORENZO [facility] [place] 08-29-2023 15:01-0500 Respiratory rate 16 /min Gwen NILL [facility] [place] 08-29-2023 15:01-0500 Systolic blood pressure 144 mm[Hg] Gwen NILL [facility] [place] 10-27-2021 14:12-0400 Blood Pressure Location Gwen NILL [facility] [place] 10-27-2021 14:12-0400 Diastolic blood pressure 64 mm[Hg] Gwen NILL [facility] [place] 10-27-2021 14:12-0400 Heart rate 72 /min Gwen NILL [facility] [place] 10-27-2021 14:12-0400 Respiratory rate 16 /min Gwen NILL [facility] [place] 10-27-2021 14:12-0400 Systolic blood pressure 120 mm[Hg] Gwen NILL [facility] [place] Encounters Encounter Date Encounter Type Care Provider Facility Start: 12-29-2023 End: 12-29-2023 ambulatory AUSTIN SPRINGER Facility:[facility] Start: 12-29-2023 End: 12-29-2023 Office outpatient visit 15 minutes Austin Springer MD Work Phone: Hematology/Oncology Comment on above: Iron deficiency anem ia due to chronic blood loss (Primary Dx); Positive occult stool blood test Start: 12-26-2023 End: 12-26-2023 ambulatory ADONAY ZHANG Facility:[facility] Start: 12-25-2023 Telephone encounter Alicia Pires RN [...] Start: 10-20-2023 End: 10-20-2023 ambulatory ADONAY ZHANG Facility:[facility] Start: 10-11-2023 End: 10-12-2023 ambulatory Gwen LORENZO Facility: [place] Start: 09-29-2023 End: 09-29-2023 ambulatory AUSTIN SPRINGER Facility:[facility] Start: 09-22-2023 End: 09-22-2023 ambulatory Chair [...] 09-12-2023 End: 09-12-2023 ambulatory ADONAY M CYNTHIANegin Facility:[facility] Start: 09-08-2023 Social Work Maria Luisa DICKERSON Hematolo gy/Oncology Start: 09-04-2023 End: 09-04-2023 ambulatory ADONAY ZHANG Facility:[facility] Start: 09-04-2023 End: 09-04-2023 ambulatory AUSTIN SPRINGER Facility:[facility] Start: 09-04-2023 End: 09-04-2023 Office outpatient new 60 minutes Austin Springer MD Work Phone: Hematology/Oncology Comment on above: Iron deficiency anem ia due to chronic blood loss (Primary Dx); Positive occult stool blood test; Morbid obesity (HCC) Start: 08-31-2023 Chart abstracting Austin win MD Work Phone: Hematology/Oncology Start: 08-29-2023 End: 08-30-2023 ambulatory Gwen LORENZO Facility:[facility] Start: 08-29-2023 End: 08-29-2023 Patient encounter procedure [...] Start: 01-18-2017 End: 01-19-2017 Ambulatory DEFAULT PHYSICIAN Facility:[facility] Procedures Date Procedure Procedure Detail Performing Clinician Start: 10-14-[address] ADONAY ZHANG . Comment on above: Performed By: #### TSH, LIVER, LIPID, BM P, T7 #### [facility] [address] [address] [address] Roberto Cabral Start: 11-17-2021 Colonoscopy Gwen LORENZO Start: 11-17-2021 Esophagogastroduodenoscopy Gwen LORENZO Start: 12-20-2016 Colonoscopy Gwen LORENZO Cholecystectomy Gwen LORENZO Plan of Treatment Date Care Activity Detail Author Start: 02-10-2033 Urine microalbumin profile DTaP,Tdap,Td Vaccine (3 - Td or Tdap) [facility] Start: 12-25-2026 [facility]: 10-19-2026 [facility] Start: 09-03-2026 [facility] Start: 03-01-2024 End: 03-01-2024 ambulatory Hematology/Oncology Comment on above: 8 week lab Possible IV Fe Start: 02-28-2024 End: 02-28-2024 Patient encounter procedure 02/28/2024 9:00 AM EDT Office Visit [facility] [address] [place] [address] 8 week lab [facility] Comment on above: 8 week lab Start: 12-29-2023 End: 12-29-2023 Follow-up encounter Hematology/Oncology Comment on above: 8 WEEK FOLLOW UP wit h lab possible iv fe 8 WEEK FOLLOW UP wit h lab possible Venofer 300 Start: 12-29-2023 End: 12-29-2023 Patient encounter procedure 12/29/2023 9:30 AM EDT Office Visit [facility] [address] [place] [address] 8 WEEK FOLLOW UP with lab possible iv fe [facility] Comment on above: 8 WEEK FOLLOW UP wit h lab possible iv fe Start: 12-26-2023 End: 03-26-2024 Cobalamin (Vitamin B12) [Mass/volume] in Serum or Plasma [facility] Comment on above: Expected: 12/26/2023 , Expires: 03/26/2024 Start: 12-26-2023 End: 03-26-2024 Comprehensive metabolic 2000 panel - Serum or Plasma COMPREHENSIVE METABOLIC PANEL Lab Routine Iron deficiency anemia due to chronic blood loss Expected: 12/26/2023, Expires: 03/26/[address] [facility] Work Phone: Comment on above: Expected: 12/26/2023 , Expires: 03/26/2024 Start: 12-26-2023 End: 03-26-2024 Ferritin [Mass/volume] in Serum or Plasma FERRITIN Lab Routine Iron deficiency anemia due to chronic blood loss Expected: 12/26/2023, Expires: 03/26/2024 [facility] Comment on above: Expected: 12/26/2023 , Expires: 03/26/2024 Start: 12-26-2023 End: 03-26-2024 Folate [Mass/volume] in Serum or Plasma [facility] Work Phone: Comment on above: Expected: 12/26/2023 , Expires: 03/26/2024 Start: 12-26-2023 End: 03-26-2024 Iron and Iron binding capacity panel - Serum or Plasma [facility] Comment on above: Expected: 12/26/2023 , Expires: 03/26/2024 Start: 12-26-2023 End: 12-26-2023 Patient encounter procedure 12/26/2023 10:00 AM EDT Office Visit [facility] [address] [place] [address] 8 WEEK FOLLOW UP with lab possible iv fe [facility] Comment on above: 8 WEEK FOLLOW UP wit h lab possible iv fe Start: 11-10-2023 End: 11-10-2023 ambulatory 11/10/2023 9:30 AM EDT Infusion Center Hematology/Oncology [address] [place] [address] Weekly Venofer x 3 doses Hematology/Oncology Comment on above: Weekly Venofer x 3 d oses Start: 11-03-2023 End: 11-03-2023 ambulatory 11/03/2023 9:30 AM EDT Infusion Center Hematology/Oncology [address] [place] [address] Weekly Venofer x 3 doses Hematology/Oncology Comment on above: Weekly Venofer x 3 d oses Start: 10-16-2023 End: 09-03-2024 CBC W Auto Differential panel - Blood CBC + DIFF Lab Routine Iron deficiency anemia due to chronic blood loss Positive occult stool blood test Expected: 10/16/2023 (Approximate), Expires: 09/03/[address] [facility] Work Phone: Comment on above: Expected: 10/16/2023 (Approximate), Expires: 09/03/2024 Start: 10-16-2023 End: 09-03-2024 Cobalamin (Vitamin B12) [Mass/volume] in Serum or Plasma VITAMIN B12 BLOOD Lab Routine Iron deficiency anemia due to chronic blood loss Positive occult stool blood test Expected: 10/16/2023 (Approximate), Expires: 09/03/[address] [facility] Work Phone: Comment on above: Expected: 10/16/2023 (Approximate), Expires: 09/03/2024 Start: 10-16-2023 End: 09-03-2024 Comprehensive metabolic 2000 panel - Serum or Plasma COMP METABOLIC PANEL Lab Routine Iron deficiency anemia due to chronic blood loss Positive occult stool blood test Expected: 10/16/2023 (Approximate), Expires: 09/03/[address] [facility] Work Phone: Comment on above: Expected: 10/16/2023 (Approximate), Expires: 09/03/2024 Start: 10-16-2023 End: 09-03-2024 Ferritin [Mass/volume] in Serum or Plasma FERRITIN BLD Lab Routine Iron deficiency anemia due to chronic blood loss Positive occult stool blood test Expected: 10/16/2023 (Approximate), Expires: 09/03/[address] [facility] Work Phone: Comment on above: Expected: 10/16/2023 (Approximate), Expires: 09/03/2024 Start: 10-16-2023 End: 09-03-2024 Folate [Mass/volume] in Serum or Plasma FOLATE SERUM Lab Routine Iron deficiency anemia due to chronic blood loss Positive occult stool blood test Expected: 10/16/2023 (Approximate), Expires: 09/03/[address] [facility] Work Phone: Comment on above: Expected: 10/16/2023 (Approximate), Expires: 09/03/2024 Start: 10-16-2023 End: 09-03-2024 Iron and Iron binding capacity panel - Serum or Plasma IRON + TIBC Lab Routine Iron deficiency anemia due to chronic blood loss Positive occult stool blood test Expected: 10/16/2023 (Approximate), Expires: 09/03/[address] [facility] Work Phone: Comment on above: Expected: 10/16/2023 (Approximate), Expires: 09/03/2024 Start: 09-04-2023 End: 09-03-2024 Cobalamin (Vitamin B12) [Mass/volume] in Serum or Plasma [facility] Work Phone: Comment on above: Expected: 09/04/2023 , Expires: 09/03/2024 Start: 09-04-2023 End: 09-03-2024 Ferritin [Mass/volume] in Serum or Plasma [facility] Work Phone: Comment on above: Expected: 09/04/2023 , Expires: 09/03/2024 Start: 09-04-2023 End: 09-03-2024 Folate [Mass/volume] in Serum or Plasma [facility] Work Phone: Comment on above: Expected: 09/04/2023 , Expires: 09/03/2024 Start: 09-04-2023 End: 12-04-2023 Haptoglobin [Mass/volume] in Serum or Plasma [facility] Work Phone: Comment on above: Expected: 09/04/2023 , Expires: 12/04/2023 Start: 09-04-2023 End: 09-03-2024 Iron and Iron binding capacity panel - Serum or Plasma [facility] Work Phone: Comment on above: Expected: 09/04/2023 , Expires: 09/03/2024 Start: 08-06-2023 Covid-19 Vaccine (7 - 2023-24 season) Covid-19 Vaccine ( season) [facility] Start: 07-03-2023 Advance Directive Discussion Advance Directive Discussion [facility] Start: 07-03-2023 Behavioral Health Screening Behavioral Health Screening [facility] Start: 07-03-2023 Depression Assessment Depression Ass essment [facility] Start: 03-03-2023 Influenza vaccination Influenza Vacc ine (#1) [facility] Start: 2010 Pneumococcal Vaccine : 65+ (1 of 1 - PCV) Pneumococcal Vaccine: 65+ (1 of 1 - PCV) [facility] Start: 2005 RSV Vaccine (1 - 1-d ose 60+ series) RSV Vaccine (1 - 1-dose 60+ series) [facility] Start: 1995 Shingrix Vaccine (1 of 2) Shingrix Vaccine (1 of 2) [facility] Start: 1990 Diabetes Screening Diabetes Screenin g [facility] Start: 1964 Urine microalbumin profile DTaP,Tdap,Td Vaccine (1 - Tdap) [facility] Start: 1963 Hepatitis C screening Hepatitis C Sc [facility] Start: 1945 Covid-19 Vaccine (#1) Covid-19 Vacci ne (#1) [facility] CBC W Auto Different ial panel - Blood CBC + DIFF Lab Routine Iron deficiency anemia due to chronic blood loss Positive occult stool blood test 09/04/2023 12:26 PM [facility] Work Phone: [facility] Immunizations Immunization Date Immunization Notes Care Provider Herlinda morris 04-05-2023 influenza (HD-IIV4) vaccine, age 65+ yr, high dose, quadrivalent, PF (FLUZONE HIGH-DOSE) Austin Springer MD Work Phone: [facility] 04-05-2023 influenza virus vacc ine, unspecified formulation Gwen LORENZO [facility] [place] 02-10-2023 tetanus toxoid, redu angy diphtheria toxoid, and acellular pertussis vaccine, adsorbed Austin Springer MD Work Phone: [facility] 07-06-2022 SARS-CoV-2 (COVID-19 ) [id number] Gwen MATHIASJuani [facility] 05-03-2022 influenza nasal, unspecified formulation Austin Springer MD Work Phone: [facility] 04-29-2022 influenza (aIIV4) vaccine, age 65+ yr, quadrivalent, PF (FLUAD QUAD) Austin Springer MD Work Phone: [facility] 06-25-2021 SARS-CoV-2 (COVID-19 ) Ad26 vaccine, recombinant Gwen NILL [facility] 06-21-2021 SARS-CoV-2 (COVID-19 ) mRNA BNT-162b2 vax Gwen HUMBERTO [facility] 05-03-2021 unknown vaccine or immune globulin Austin Springer MD Work Phone: [facility] 09-22-2020 SARS-CoV-2 (COVID-19 ) Ad26 vaccine, recombinant Gwen NILL [facility] 08-31-2020 SARS-CoV-2 (COVID-19 ) Ad26 vaccine, recombinant Gwen NILL [facility] 08-05-2020 influenza (HD-IIV4) vaccine, age 65+ yr, high dose, quadrivalent, PF (FLUZONE HIGH-DOSE) Austin Springer MD Work Phone: [facility] 04-02-2019 influenza nasal, unspecified formulation Austin Springer MD Work Phone: [facility] 05-18-2018 influenza, injectabl e, quadrivalent, preservative free Austin Springer MD Work Phone: [facility] 05-18-2018 zoster vaccine recombinant Austin Springer MD Work Phone: [facility] 12-15-2017 pneumococcal conjuga te vaccine, 13 valent Austin Springer MD Work Phone: [facility] 12-15-2017 zoster vaccine recombinant Austin Springer MD Work Phone: [facility] 06-02-2017 influenza nasal, unspecified formulation Austin Springer MD Work Phone: [facility] 04-11-2015 influenza nasal, unspecified formulation Austin Springer MD Work Phone: [facility] 07-16-2014 influenza nasal, unspecified formulation Austin Springer MD Work Phone: [facility] 2013 influenza, seasonal, injectable Austin Springer MD Work Phone: [facility] 2013 pneumococcal polysaccharide vaccine, 23 valent Austin Springer MD Work Phone: [facility] 04-02-2013 influenza nasal, unspecified formulation Austin Springer MD Work Phone: [facility] 04-02-2013 pneumococcal polysaccharide vaccine, 23 valent Austin Springer MD Work Phone: [facility] 07-03-2012 tetanus toxoid, redu angy diphtheria toxoid, and acellular pertussis vaccine, adsorbed Austin Springer MD Work Phone: [facility] 04-11-2007 influenza nasal, unspecified formulation Austin Springer MD Work Phone: [facility] Payers Date Payer Category Payer Unknown 1959 Unknown [id number] 1945 Unknown [id number] [id number] [id number] 1945 Unknown [id number] 2.16.84 [id number] 1945 Unknown [id number] 2.16.84 [id number] 1945 Unknown [id number] 2.16.84 [id number] 1945 Unknown [id number] 2.16.84 [id number] 1945 Unknown [id number] 2.16.84 [id number] 1945 Unknown [id number] 2.16.8 [id number] 1945 Unknown [id number] 2.16.8 [id number] Social History Date Type Detail Facility Start: 10-27-2021 End: 09-04-2023 Tobacco smoking status Ex-smoker (finding) [facility] Tobacco smoking status Never [facility] Start: 09-04-2023 End: 10-19-2023 Sex Assigned At Male [facility] Tobacco smoking stat [facility] Tobacco smoking consumption unknown [facility] Start: 1945 Sex Assigned At Not on file [facility] History of tobacco use Current smoker [facility] History of tobacco use Cigarette Smoker [facility] History of tobacco use Passive smoker [facility] Start: 09-04-2023 Tobacco use and exposure Smokeless tobacco non-user [facility] Start: 09-04-2023 End: 12-29-2023 Alcohol intake Ex-drinker (finding) [facility] Start: 09-04-2023 End: 10-19-2023 History of Social function [facility] Start: 1945 Sex Assigned At Male [facility] Start: 09-19-2023 Gender identity Identifies as male gender (finding) [facility] Start: 09-19-2023 Sexual orientation Heterosexual (fin ding) [facility] Functional Status Date Assessment Result Facility 08-29-2023 Functional Status N/A [facility] Clinical Notes 11-17-2021 to 12-29-2023 Patient InstructionsAbAustin [...] studies are stable documented in this encounter [facility] 12-29-2023 History of Presen t illness Narrative Images from the original note were not included. NAME: Case, Yunior CLINIC NO.: [id number] DATE OF SERVICE: December 29, 2023 (sasha) Some elements in this clinic note that are critical to medical decision making have been carefully reviewed and included from a prior clinic note dated: October 20, 2023 (Meghann) Referring Provider: Dr. Adonay Zhang ([facility] in [place]) Additional Clinicians involved in Yunior Best's care: [...] Reverse Chronological Order 10/11/2023 - Colonoscopy in [place] with Dr. Lorenzo: Negative findings 08/25/2023 - [...] better. He had a scope done in [place] - saw nothing of concern according to [...] colonoscopy. 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 REVIEW OF [...] which included preparing to see the patient, [id number] patient care, completing clinical documentation, performing a medically appropriate examination, ordering medications, tests, or procedures, independently interpreting results (not separately reported), and communicating results to the patient/family/caregiver. Austin Springer MD, CPE Hematology and Oncology Services Provided at: [place], [place] Scribe Attestation: This note was scribed [...] my direction. CC: Adonay Zhang MD [address] [facility] [address] documented in this encounter [facility] 12-29-2023 Note HNO ID: [id number] Author: AUSTIN SPRINGER MD Service: ? Author Type: Physician Type: Progress Notes Filed: 12/29/2023 18:06 Note Text: NAME: Case, Yunior CLINIC NO.: [id number] DATE OF SERVICE: December 29, 2023 (Meghann) Some elements in this clinic note that are critical to medical decision making have been carefully reviewed and included from a prior clinic note dated: October 20, 2023 (Meghann) Referring Provider: Dr. Adonay Zhang ([facility] in [place]) Additional Clinicians involved in Yunior Best's care: [...] Reverse Chronological Order 10/11/2023 - Colonoscopy in [place] with Dr. Lorenzo: Negative findings 08/25/2023 - [...] better. He had a scope done in [place] - saw nothing of concern according to [...] colonoscopy. 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 REVIEW OF [...] breakfast. metoprolol succin (more content not included)... [facility] 12-26-2023 Note Addended by: TITI CASTANO on: 12/26/2023 10:23 AM Modules accepted: Orders [facility] Work Phone: 12-26-2023 Miscellaneous Notes Addended by: [...] Jagruti Caldera RN documented in this encounter [facility] 12-25-[address] Meghann Mojica is coming in for lab work tomorrow 12/26/23 in preparation for an appointment with you on 12/29/23. There are no lab orders available. I have pended orders based on what was ordered in October. Can you please review and sign and add anything else you may want. Thanks Jagruti Caldera RN [facility] 12-25-2023 Telephone encounter Note Opened in error [facility] 12-25-2023 Miscellaneous Notes Opened in error documented in this encounter [facility] 10-20-2023 Instructions Ameena Vogt - 10/20/2023 11:06 AM EDT Obtain results on colonoscopy from [place] with Dr. Humberto Cee x3 weekly doses, start next week - prefers Fridays RTC in 8 weeks Labs same day, include iron studies Iron infusion same day documented in this encounter [facility] 10-20-2023 History of Presen t illness Narrative Images from the original note were not included. NAME: Case, Yunior [facility] NO.: [id number] DATE OF SERVICE: October 20, 2023 ([facility]) Some elements in this clinic note that are critical to medical decision making have been carefully reviewed and included from a prior clinic note dated: September 04, 2023 (Meghann) Referring Provider: Dr. Adonay Zhang ([facility] in [place]) Additional Clinicians involved in Yunior Best's care: DIAGNOSIS: Iron deficiency anemia ASSESSMENT: 78 year old man with heme + stools and iron deficiency anemia. He is intolerant to oral iron therapy. Will need IV iron for replacement and diagnostic endoscopic evaluation. Suspect he has recurring ulcer. PLAN: Obtain results of colonoscopy from [place] with Dr. Humberto Cee x3 weekly doses, start next week - prefers Fridays RTC in 8 weeks Labs same day, include iron studies Iron infusion same day HPI: CASE HISTORY: Reverse Chronological Order 10/11/2023 - Colonoscopy in [place] with Dr. Lroenzo 08/25/2023 - Stool for occult blood: Positive 08/11/2023 - Ferritin: 379, Iron: 14, Folate: 27 08/09/2023 - CBC: 8.4 > 8.0 / 31.1 < 321, MCV: 69.6 Updated Visit, October 20, 2023: Yunior returns today with Heidi and his son, Theo. He has been feeling better. He had a scope done in [place] - saw nothing of concern according to [...] colonoscopy. 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 REVIEW OF [...] which included preparing to see the patient, [id number] patient care, completing clinical documentation, obtaining and/or reviewing separately obtained history, performing a medically appropriate examination, counseling and educating the patient/family/caregiver, ordering medications, tests, or procedures, independently interpreting results (not separately reported), communicating results to the patient/family/caregiver, and care coordination (not separately reported). Austin Springer MD, CPE Hematology and Oncology Services Provided at: [place], [place] Scribe Attestation: This note was scribed [...] direction. CC: Adonay Zhang MD [address] [facility] [address] documented in this encounter [facility] 10-20-2023 Note HNO ID: [id number] Author: AUSTIN SPRINGER MD Service: ? Author Type: Physician Type: Progress Notes Filed: 10/21/2023 15:48 Note Text: NAME: Case, Yunior [facility] NO.: [id number] DATE OF SERVICE: October 20, 2023 (Meghann) Some elements in this clinic note that are critical to medical decision making have been carefully reviewed and included from a prior clinic note dated: September 04, 2023 (Meghann) Referring Provider: Dr. Adonay Zhang ([facility] in [place]) Additional Clinicians involved in Yunior Best's care: DIAGNOSIS: Iron deficiency anemia ASSESSMENT: 78 year old man with heme + stools and iron deficiency anemia. He is intolerant to oral iron therapy. Will need IV iron for replacement and diagnostic endoscopic evaluation. Suspect he has recurring ulcer. PLAN: Obtain results of colonoscopy from [place] with Dr. Humberto Cee x3 weekly doses, start next week - prefers Fridays RTC in 8 weeks Labs same day, include iron studies Iron infusion same day HPI: CASE HISTORY: Reverse Chronological Order 10/11/2023 - Colonoscopy in [place] with Dr. Lorenzo 08/25/2023 - Stool for occult blood: Positive 08/11/2023 - Ferritin: 379, Iron: 14, Folate: 27 08/09/2023 - CBC: 8.4 > 8.0 / 31.1 < 321, MCV: 69.6 Updated Visit, October 20, 2023: Yunior returns today with Heidi and his son, Theo. He has been feeling better. He had a scope done in [place] - saw nothing of concern according to [...] colonoscopy. 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 REVIEW OF [...] for this treatment. documented in this encounter [facility] 09-08-2023 Note HNO ID: [id number] Author: MARIA LUISA COMER LSW Service: ? Author Type: Family Services Worker Type: Progress Notes Filed: 09/08/2023 15:50 Note Text: Patient appears on the [facility] First Time Treatment List for a non-oncology treatment. No psychosocial assessment is indicated. SHANICE Arenas [facility] 09-08-2023 History of Presen t illness Narrative Patient appears on the [facility] First Time Treatment List for a non-oncology treatment. No psychosocial assessment is indicated. SHANICE Arenas documented in this encounter [facility] 09-04-2023 Instructions Ameena Vogt - 09/04/2023 12:05 PM EST Labs today, include iron studies Triage call results to [facility] Heidi Plan for IV iron when approved Prefer Monday the , if possible RTC in 6 weeks Labs same day, include iron studies documented in this encounter [facility] 09-04-2023 History of Presen t illness Narrative Images from the original note were not included. NAME: Yunior Best [facility] NO.: [id number] DATE OF SERVICE: September 04, 2023 (Meghann) Referring Provider: Dr. Adonay Zhang ([facility]) Consultation requested by Dr. Zhang for [...] colonoscopy. 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 REVIEW OF [...] which included preparing to see the patient, [id number] patient care, completing clinical documentation, obtaining and/or reviewing separately obtained history, performing a medically appropriate examination, counseling and educating the patient/family/caregiver, ordering medications, tests, or procedures, independently interpreting results (not separately reported), communicating results to the patient/family/caregiver, and care coordination (not separately reported). Austin Springer MD, CPE Hematology and Oncology Services Provided at: [place], [place] Scribe Attestation: This note was scribed [...] my direction. CC: Adonay Zhang [address] [facility] [id number] Adonay Zhang MD [address] [facility] [id number] documented in this encounter [facility] 09-04-2023 Note HNO ID: [id number] Author: AUSTIN SPRINGER MD Service: ? Author Type: Physician Type: Progress Notes Filed: 09/04/2023 19:29 Note Text: NAME: Estephania, Yunior HERNANDEZ NO.: [id number] DATE OF SERVICE: September 04, 2023 (Meghann) Referring Provider: Dr. Adonay Zhang ([facility] in [place]) Consultation requested by Dr. Zhang for an [...] colonoscopy. 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 REVIEW OF [...] [facility] (pg) Jeremi (more content not included)... [facility] 08-29-2023 Note Chief Complaint consultation for [...] Hyperme (more content not included)... [facility] Comment on above: Result Comment: Elec [...] health for screening. CC: Adonay Zhang M.D. [facility] Signed and Approved by: DR GWEN LORENZO . 11/24/2021 10:45:00 [facility] Evaluation + Plan note No data available for this section [facility] Surgery [place] Evaluation note Diagnosis Iron deficiency anemia due to chronic blood loss- Primary Iron deficiency anemia secondary to blood loss (chronic) Positive occult stool blood test Nonspecific abnormal finding in stool contents Morbid obesity (HCC) Morbid obesity [facility] Iron deficiency anemia due to chronic blood loss- Primary Iron deficiency anemia secondary to blood loss (chronic) [facility] Iron deficiency anemia due to chronic blood loss- Primary Iron deficiency anemia secondary to blood loss (chronic) [facility] [place] [facility] Diagnosis Iron deficiency anemia due to chronic blood loss- Primary Iron deficiency anemia secondary to blood loss (chronic) Positive occult stool blood test Nonspecific abnormal finding in stool contents [facility] Iron deficiency anemia due to chronic blood loss- Primary Iron deficiency anemia secondary to blood loss (chronic) [facility] Iron deficiency anemia due to chronic blood loss- Primary Iron deficiency anemia secondary to blood loss (chronic) [facility] Iron deficiency anemia due to chronic blood loss- Primary Iron deficiency anemia secondary to blood loss (chronic) Positive occult stool blood test Nonspecific abnormal finding in stool contents documented in this encounter [facility] Discharge instructions No data available for this section General Surgery [place] Progress note No data available for this section General Surgery [place] Summary Purpose Family History No Family History [...] section and content) DATE CREATED AUTHOR 12/27/2017 [facility] DATE CREATED AUTHOR AUTHOR'S ORGANIZ ATION 10/20/2022 [facility] DATE CREATED AUTHOR AUTHOR'S ORGANIZ ATION 10/18/2023 [facility] DATE CREATED AUTHOR AUTHOR'S ORGANIZ ATION 12/31/2023 [facility] Patient Care team informatio n (unrecognized section and content) Drawstring Knotter Relationship Specialty Start Date End Date Adonay Zhang MD [address] [place] [address] PCP - General Family Medicine 08/24/23 Drawstring Knotter Relationship Specialty Start Date End Date Adonay Zhang MD [address] [place] [address] PCP - General Family Medicine 08/24/23 Drawstring Knotter Relationship Specialty Start Date End Date Adonay Zhang MD [address] [place] [address] PCP - General Family Medicine 08/24/23 Drawstring Knotter Relationship Specialty Start Date End Date Adonay Zhang MD [address] [place] [address] PCP - General Family Medicine 08/24/23 Drawstring Knotter Relationship Specialty Start Date End Date Adonay Zhang MD [address] [place] [address] PCP - General Family Medicine 08/24/23 Drawstring Knotter Relationship Specialty Start Date End Date Adnoay Zhang MD [address] [place] [address] PCP - General Family Medicine 08/24/23 Drawstring Knotter Relationship Specialty Start Date End Date Adonay Zhang MD [address] [place] [address] PCP - General Family Medicine 08/24/23 Drawstring Knotter Relationship Specialty Start Date End Date Adonay Zhang MD [address] [place] [address] PCP - General Family Medicine 08/24/23 Drawstring Knotter Relationship Specialty Start Date End Date Adonay Zhang MD [address] [place] [address] PCP - General Family Medicine 08/24/23 Drawstring Knotter Relationship Specialty Start Date End Date Adonay Zhang MD [address] [place] [address] PCP - General Family Medicine 08/24/23 Source Comments (unrecognize d section and content) In the event this informatio n is protected by the [facility] Confidentiality of Alcohol and Drug Abuse Patient Records regulations: The Federal rules restrict any use of the information to criminally investigate or prosecute any alcohol or drug abuse patient.[facility] the event this information is protected by the Federal Confidentiality of Alcohol and Drug Abuse Patient Records regulations: The Federal rules restrict any use of the information to criminally investigate or prosecute any alcohol or drug abuse patient.[facility] the event this information is protected by the Federal Confidentiality of Alcohol and Drug Abuse Patient Records regulations: The Federal rules restrict any use of the information to criminally investigate or prosecute any alcohol or drug abuse patient.[facility] the event this information is protected by the Federal Confidentiality of Alcohol and Drug Abuse Patient Records regulations: The Federal rules restrict any use of the information to criminally investigate or prosecute any alcohol or drug abuse patient.[facility] the event this information is protected by the Federal Confidentiality of Alcohol and Drug Abuse Patient Records regulations: The Federal rules restrict any use of the information to criminally investigate or prosecute any alcohol or drug abuse patient.[facility] the event this information is protected by the Federal Confidentiality of Alcohol and Drug Abuse Patient Records regulations: The Federal rules restrict any use of the information to criminally investigate or prosecute any alcohol or drug abuse patient.[facility] the event this information is protected by the Federal Confidentiality of Alcohol and Drug Abuse Patient Records regulations: The Federal rules restrict any use of the information to criminally investigate or prosecute any alcohol or drug abuse patient.[facility] the event this information is protected by the Federal Confidentiality of Alcohol and Drug Abuse Patient Records regulations: The Federal rules restrict any use of the information to criminally investigate or prosecute any alcohol or drug abuse patient.[facility] the event this information is protected by the Federal Confidentiality of Alcohol and Drug Abuse Patient Records regulations: The Federal rules restrict any use of the information to criminally investigate or prosecute any alcohol or drug abuse patient.[facility] the event this information is protected by the Federal Confidentiality of Alcohol and Drug Abuse Patient Records regulations: The Federal rules restrict any use of the information to criminally investigate or prosecute any alcohol or drug abuse patient.[facility] Center[facility] the event this information is protected by the Federal Confidentiality of Alcohol and Drug Abuse Patient Records regulations: The Federal rules restrict any use of the information to criminally investigate or prosecute any alcohol or drug abuse patient.[facility] Center[facility] the event this information is protected by the Federal Confidentiality of Alcohol and Drug Abuse Patient Records regulations: The Federal rules restrict any use of the information to criminally investigate or prosecute any alcohol or drug abuse patient.[facility] Center[facility] the event this information is protected by the Federal Confidentiality of Alcohol and Drug Abuse Patient Records regulations: The Federal rules restrict any use of the information to criminally investigate or prosecute any alcohol or drug abuse patient.[facility] Reason for Visit (unrecogniz ed section and content) Reason Comments Anemia New patient consulta tion Reason Comments Benefits Investigation Specialty Diagnoses / Procedures Referred By Contac t Referred To Contact Diagnoses Iron deficiency anemia due to chronic blood loss Procedures IRON SUCROSE INJECTION PER 1 MG Austin Springer MD [address] [place] [address] Gabino Treat Syed [address] [place] [address] Referral ID Status Reason Start Date Expiration Date Visits Requested Visits Authorized [id number] Authorized Patient Cleared INN/SMCP Payor Auth Obtained 09/12/2023 12/11/2023 3 3 Reason Comments Anemia Referral ID Status Reason Start Date Expiration Date Visits Requested Visits Authorized [id number] Authorized Patient Cleared INN/SMCP Payor Auth Obtained 09/12/2023 01/21/2024 3 3 Referral ID Status Reason Start Date Expiration Date Visits Requested Visits Authorized [id number] Authorized Patient Cleared INN/SMCP Payor Auth Obtained [...] BE BASED ON THE PRIMARY CLINICAL RECORDS. [facility] [facility]. provides no warranty or guarantee of the accuracy or completeness of information in this document.
--- NOTE | 2024-02-16 09:30 | CA_ITS ---
Patient Name: LAM BEST MR#: [id number] : 1945 Exam Date: 02/16/2024 Ordering Doctor: Non-Staff Physician ECHOCARDIOGRAM REPORT from PROCEDURE: CA ECHO DOPPLER COMPLETE INDICATIONS: Heart failure COMPARISON: None. DESCRIPTION: COMPLETE ECHOCARDIOGRAM Real-time transthoracic echocardiography with 2D, M-mode, spectral and color flow Doppler performed. QUALITY: Technical quality was adequate. LEFT VENTRICLE: Normal chamber size. Normal left ventricular wall thickness. Normal systolic function. LV EF: Normal left ventricular ejection fraction, (55-60%). DIASTOLIC: Diastolic function is indeterminate. ATRIAL SEPTUM: LEFT ATRIUM: Normal chamber size. RIGHT ATRIUM: Normal chamber size. RIGHT VENTRICLE: Normal chamber size. Normal right ventricular systolic function. TRICUSPID VALVE: Not well visualized. No stenosis with no regurgitation. MITRAL VALVE: Normal mobility and thickness. No evidence of mitral valve stenosis. There is no mitral annular calcification. No mitral regurgitation. AORTIC VALVE: Normal trileaflet appearance. No visible sclerosis. Normal leaflet mobility. No aortic regurgitation. AORTIC ROOT: Normal diameter and appearance. Ascending aorta is normal in size. PULMONIC VALVE: Normal thickness and mobility. No stenosis. No regurgitation. PERICARDIUM: No evidence of pericardial effusion. IVC: Collapses with inspirations. PLEURA: CONCLUSION: 1. Normal ventricular size and systolic function. 2. No significant valvular dysfunction. 3. No pericardial effusion. Adult Echocardiography Procedure Report Left Ventricle LVEDD (3.7 - 5.6 cm): 3.60 cm LVESD (2.2 - 4.0 cm): 2.71 cm LVIVS thickness (0.6 - 1.2 cm): 1.09 cm LVPW thickness (0.5 - 1.0 cm): 1.02 cm e': 0.05 m/s E - e': 12.72 LVOT Max Gradient: 4.65 mm[Hg] LVOT Area (cm2): 1.08 m/s Peak Velocity (LVOT): 1.08 m/s Mean Velocity (LVOT): 0.74 m/s LVOT Diameter 2.25 cm Left Atrium LA Volume Index (2D A2C): 34.06 ml/m2 Left Atrium Systolic Dimension: 3.90 cm Mitral Valve MV E to A Ratio: 0.70 Mitral Valve A-Wave Peak Velocity: 1.00 m/s Mitral Valve E-Wave Peak Velocity: 0.69 m/s Right Ventricle Aorta AO Root Diam: 2.70 cm Ascending Ao Diam: 2.77 cm Aortic Valve AoV Area (Peak Samir): 2.28 cm2, 2.28 cm2 AoV Area (VTI): 2.62 cm2, 2.62 cm2 Peak Velocity(Antegrade Flow): 1.88 m/s Peak Gradient(Antegrade Flow): 14.15 mm[Hg] Mean Velocity(Antegrade Flow): 1.17 m/s Mean Gradient(Antegrade Flow): 6.41 mm[Hg] Velocity Time Integral: 43.68 cm Tricuspid Valve Pulmonic Valve Mean Gradient: 2.42 mm[Hg] Mean Velocity: 0.72 m/s Peak Velocity: 1.15 m/s, 1.27 m/s Peak Gradient: 6.42 mm[Hg], 5.31 mm[Hg] Right Atrium Dictated by: Polo Olivares M.D. on 02/16/2024 at 17:57 Approved by: Polo Olivares M.D. on 02/16/2024 at 18:00
== END 2024-02-16 09:04 | disposition home or self-care (01) ==
LOC: CARD 09:04
PROVIDERS: PCP Family Medicine
DX: I11.0 Hypertensive heart disease with heart failure (principal); I50.9 Heart failure, unspecified; R01.1 Cardiac murmur, unspecified
CPT/HCPCS: 93306

== ENCOUNTER 2024-10-30 07:58 | Outpatient (OUT) | payer MEDICARE, SELFPAY ==
[2024-10-30 08:30] LABS: Basophils Absolute Auto 0.1 10^3/uL (0.0-0.1); Basophils Percent Auto 0.4 % (0.2-2.0); Eosinophils Absolute Auto 0.7 10^3/uL (0.0-0.7); Eosinophils Percent Auto 6.3 % (0.9-7.0); Hematocrit 44.3 % (42.0-54.0); Hemoglobin 14.8 g/dL (14.0-18.0); Immature Granulocytes Abs Auto 0.05 10^3/uL (0.00-0.03); Immature Granulocytes Pct Auto 0.4 % (0.0-0.5); Lymphocytes Absolute Auto 1.9 10^3/uL (1.2-3.8); Lymphocytes Percent Auto 16.5 % (20.5-60.0); Mean Corpuscular HGB Conc 33.4 g/dL (29.9-35.2); Mean Corpuscular Hemoglobin 31.8 pg (25.9-34.0); Mean Corpuscular Volume 95.3 fL (80.0-94.0); Mean Platelet Volume 10.1 fL (9.5-13.5); Monocytes Percent Auto 8.9 % (1.7-12.0); Neutrophils Absolute Auto 7.8 10^3/uL (1.4-6.5); Neutrophils Percent Auto 67.5 % (43.0-75.0); Platelet Count 207 10^3/uL (150-450); Red Blood Count 4.65 10^6/uL (4.70-6.10); Red Cell Distribution Width 13.2 % (11.0-15.0); White Blood Count 11.6 10^3/uL (4.0-11.0)
[2024-10-30 08:44] LABS: Estimated Average Glucose 134 mg/dL; Glycohemoglobin A1C 6.3 % (4.5-6.2)
[2024-10-30 08:57] LABS: Alanine Aminotransferase 19 U/L (16-63); Albumin Globulin Ratio 1.2; Albumin Level 3.9 g/dL (3.4-5.0); Alkaline Phosphatase 69 U/L (46-116); Anion Gap 15.5; Aspartate Amino Transferase 18 U/L (15-37); BUN Creatinine Ratio 21.9; Bilirubin Total 0.5 mg/dL (0.2-1.0); Calcium 9.3 mg/dL (8.5-10.1); Carbon Dioxide 26.6 mmol/L (21.0-32.0); Chloride 103 mmol/L (98-107); Chol HDL Ratio 2.7; Cholesterol 139 mg/dL (<=200); Estimated GFR (African America >60 (>=60 mL/min/1.73m^2); Estimated GFR (Non-African Ame 54 (>=60 mL/min/1.73m^2); Free T3 3.41 pg/mL (2.18-3.98); Globulin 3.2 g/dL; Glucose 156 mg/dL (74-106); HDL Cholesterol 51 mg/dL (40-60); Potassium 4.1 mmol/L (3.5-5.1); Sodium 141 mmol/L (136-145); Thyroid Stimulating Hormone 2.131 uIU/mL (0.358-3.740); Total Protein 7.1 g/dL (6.4-8.2); Triglycerides 211 mg/dL (<=150); VLDL CHOLESTEROL 42.2 mg/dL
== END 2024-10-30 07:59 | disposition home or self-care (01) ==
LOC: LAB 08:01
PROVIDERS: PCP Family Medicine; Visit Provider Family Medicine
DX: E78.5 Hyperlipidemia, unspecified (principal); I10 Essential (primary) hypertension; Z12.5 Encounter for screening for malignant neoplasm of prostate; Z12.11 Encounter for screening for malignant neoplasm of colon; R53.83 Other fatigue; E11.9 Type 2 diabetes mellitus without complications
CPT/HCPCS: 36415; 80053; 80061; 83036; 84436; 84443; 84481; 85025; G0103

== ENCOUNTER 2024-11-04 14:42 | Outpatient (REF) | payer MEDICARE, SELFPAY ==
[2024-11-04 15:35] LABS: Internal Control Within Normal Limits; Occult Blood Positive
== END 2024-11-04 14:43 | disposition home or self-care (01) ==
LOC: LAB 14:42
PROVIDERS: PCP Family Medicine; Visit Provider Family Medicine
DX: E78.5 Hyperlipidemia, unspecified (principal); I10 Essential (primary) hypertension; Z12.5 Encounter for screening for malignant neoplasm of prostate; Z12.11 Encounter for screening for malignant neoplasm of colon; R53.83 Other fatigue; E11.9 Type 2 diabetes mellitus without complications
CPT/HCPCS: G0328